=== PATIENT | female | born 1945 | race Two or more races ===

== ENCOUNTER → 2020-03-05 10:45 | Outpatient (BNVA) | payer MEDICARE, MEDICAID, SELFPAY | PROVIDERS: PCP Internal Medicine; Visit Provider Internal Medicine | DX: I26.99 Other pulmonary embolism without acute cor pulmonale (principal); Z51.81 Encounter for therapeutic drug level monitoring; Z79.01 Long term (current) use of anticoagulants | CPT/HCPCS: 85610; 99211 ==

== ENCOUNTER → 2020-03-09 10:58 | Outpatient (BNVA) | payer MEDICARE, MEDICAID, SELFPAY | PROVIDERS: PCP Internal Medicine; Visit Provider Internal Medicine | DX: I26.99 Other pulmonary embolism without acute cor pulmonale (principal); Z51.81 Encounter for therapeutic drug level monitoring; Z79.01 Long term (current) use of anticoagulants | CPT/HCPCS: 85610 ==

== ENCOUNTER 2020-03-11 12:23 | Outpatient (REF) | payer MEDICARE, MEDICAID, SELFPAY ==
--- NOTE | 2020-03-11 13:40 | XR_ITS ---
EXAMINATION: XR FOOT, LEFT XR ANKLE, LEFT XR FOOT, RIGHT XR ANKLE, RIGHT CLINICAL INFORMATION: Rheumatoid arthritis with rheumatoid factor COMPARISON: 10/24/2019 TECHNIQUE: 3 views of each foot. 2 additional views of each ankle. FINDINGS: Left foot: Osteopenia. No fracture or dislocation. Alignment is anatomic. Joint space narrowing throughout the interphalangeal joints. Diffuse soft tissue swelling. Vascular calcifications. No osseous erosion. Left ankle: No fracture or dislocation. The ankle mortise is congruent. Small heel spurs. Mild diffuse soft tissue swelling. No ankle joint effusion. Right foot: Osteopenia. No fracture or dislocation. Alignment is anatomic. Joint space narrowing throughout the interphalangeal joints. Vascular calcifications. Mild diffuse soft tissue swelling. No osseous erosions. Right ankle: No fracture or dislocation. The ankle mortise is congruent. Circumferential soft tissue swelling. Small Achilles heel spur. No ankle joint effusion. IMPRESSION: Diffuse osteopenia. No acute abnormality. No osseous erosion. Degenerative changes throughout the digits with joint space narrowing.
[2020-03-11 14:54] LABS: MANUAL DIFF FLAG NO
[2020-03-11 14:57] LABS: Basophils Percent Auto 0.5 % (0-2); Eosinophils Absolute Auto 0.1 X10*3/uL (0.0-0.4); Eosinophils Percent Auto 1.2 % (0-4); Hematocrit 38.5 % (37-47); Hemoglobin 11.4 g/dl (12.0-16.0); Imm Gran Abs Auto 0.02 X10*3/uL (0.00-0.03); Imm Gran Pct Auto 0.4 % (0.0-0.4); Lymphocytes Absolute Auto 1.6 X10*3/uL (1.2-4.9); Lymphocytes Percent Auto 28.6 % (20-40); Mean Corpuscular HGB Conc 29.6 g/dl (31.0-35.0); Mean Corpuscular Hemoglobin 24.5 pg (27.0-33.0); Mean Corpuscular Volume 82.8 fL (80-98); Mean Platelet Volume 9.5 fL (9.4-12.3); Monocytes Absolute Auto 0.4 X10*3/uL (0.1-1.2); Monocytes Percent Auto 7.7 % (2-11); Neutrophils Absolute Auto 3.5 X10*3/uL (2.0-8.3); Neutrophils Percent Auto 61.6 % (45-73); Platelet Count 504 X10*3/uL (160-400); Red Blood Count 4.65 X10*6/uL (4.20-5.50); White Blood Count 5.6 X10*3/uL (4.8-10.8)
[2020-03-11 15:25] LABS: Alanine Aminotransferase 6 U/L (0-31); Albumin Level 3.7 g/dL (3.5-5.0); Alkaline Phosphatase 80 U/L (39-117); Anion Gap 13 (12-20); Aspartate Amino Transferase 16 U/L (5-31); Bilirubin Total 0.3 mg/dL (0.0-1.0); Blood Urea Nitrogen 7 mg/dL (9-16); Calcium 9.7 mg/dL (8.4-10.2); Carbon Dioxide 31 mmol/L (22-29); Chloride 101 mmol/L (96-108); Estimated Glomerular Filt Rate > 60; Glucose Random 105 mg/dL (60-115); Potassium 4.9 mmol/l (3.3-5.1); Sodium 140 mmol/L (135-145); Total Protein 7.4 g/dL (6.5-8.0)
[2020-03-11 15:48] LABS: Erythrocyte Sedimentation Rate 80 MM/HR (0-20)
== END 2020-03-11 12:24 | disposition home or self-care (01) ==
LOC: HO.XRAY 12:23
PROVIDERS: PCP Internal Medicine; Referring Provider Internal Medicine; Visit Provider Student in an Organized Health Care Education/Training Program
DX: M06.9 Rheumatoid arthritis, unspecified (principal); Z79.899 Other long term (current) drug therapy; M25.572 Pain in left ankle and joints of left foot; M25.571 Pain in right ankle and joints of right foot; M79.672 Pain in left foot; M79.671 Pain in right foot
CPT/HCPCS: 36415; 73610; 73630; 80053; 85025; 85652; 86140; 99214

== ENCOUNTER 2020-03-17 12:52 | Outpatient (REF) | payer MEDICARE, MEDICAID, SELFPAY ==
--- NOTE | 2020-03-17 13:07 | MR_ITS ---
EXAMINATION: MR FOOT WITHOUT CONTRAST, RIGHT MR FOOT WITHOUT CONTRAST, LEFT CLINICAL INFORMATION: Rheumatoid arthritis. Foot pain. Patient documents bilateral foot pain started 8-9 months ago. Severe swelling. COMPARISON: X-ray 03/11/2020. TECHNIQUE: Multiplanar multisequence imaging in a high-field magnet without contrast. FINDINGS: RIGHT FOOT: Bone/Joints: There is extensive severe bone marrow edema in the mid and hindfoot. This includes severe diffuse edema in the cuneiforms, cuboid, navicular. Extensive severe edema in the calcaneus and the talus, including marginating the subtalar joints and the calcaneocuboid joint. Severe edema in the proximal half of the 2nd-5th metatarsals. There is edema in the distal 5th metatarsal head and neck. No focal fracture plane is seen. No definite erosive changes are identified in this large [id number] study. Muscles/Tendons: Evaluation limited, with the tendons grossly appearing intact. There is diffuse edema in the intrinsic muscles of the foot. Ligaments: Lisfranc ligament is grossly intact, evaluation limited in this large [id number] study. Achilles Tendon: Intact. Plantar Fascia: Intact. Sinus Tarsi: Edema present. Subcutaneous Soft Tissues: Extensive dorsal subcutaneous edema. LEFT FOOT: Bone/Joints: Extensive severe marrow edema in the mid and hindfoot. This includes severe diffuse edema in the cuneiforms, cuboid, navicular. Patchy edema in the talar head and neck, in the superior aspect of the calcaneus, and the mid/anterior calcaneus including marginating the calcaneocuboid joint. Mild edema in the proximal second metatarsal. There is [id number]-ikgsia edema in the distal 2nd, 4th metatarsals. Mild edema in the distal 3rd metatarsal. No focal fracture plane is seen. No definite erosive changes are seen. Mild talocrural joint arthritis. Muscles/Tendons: Limited evaluation. Tendons grossly appear intact. Diffuse edema in the intrinsic muscles of the foot. Ligaments: Lisfranc ligament is grossly intact, evaluation limited in this large [id number]-ef-rfth. Achilles Tendon: Intact. Plantar Fascia: Intact. Sinus Tarsi: Edema present. Subcutaneous Soft Tissues: Mild subcutaneous edema. MR/MR foot LT wo con IMPRESSION: 1. In bilateral feet, there is severe bone marrow edema in the mid and hindfoot. There also is edema in the forefoot involving the distal metatarsals, left greater than right as detailed above. Given the clinical history of rheumatoid arthritis, this probably reflects sequela of rheumatoid arthritis. Differential considerations such as sequela of trauma, stress injury, insufficiency injury would be less likely given the clinical history. Infectious etiology would be considered less likely given the clinical history, and the extensive marrow signal abnormality. Clinical correlation is needed to exclude the differential possibilities. 2. Edema in the intrinsic muscles of bilateral feet. Differential considerations include reactive edema, myositis, sequela of denervation.
--- NOTE | 2020-03-17 13:07 | MR_ITS ---
EXAMINATION: MR FOOT WITHOUT CONTRAST, RIGHT MR FOOT WITHOUT CONTRAST, LEFT CLINICAL INFORMATION: Rheumatoid arthritis. Foot pain. Patient documents bilateral foot pain started 8-9 months ago. Severe swelling. COMPARISON: X-ray 03/11/2020. TECHNIQUE: Multiplanar multisequence imaging in a high-field magnet without contrast. FINDINGS: RIGHT FOOT: Bone/Joints: There is extensive severe bone marrow edema in the mid and hindfoot. This includes severe diffuse edema in the cuneiforms, cuboid, navicular. Extensive severe edema in the calcaneus and the talus, including marginating the subtalar joints and the calcaneocuboid joint. Severe edema in the proximal half of the 2nd-5th metatarsals. There is edema in the distal 5th metatarsal head and neck. No focal fracture plane is seen. No definite erosive changes are identified in this large [id number] study. Muscles/Tendons: Evaluation limited, with the tendons grossly appearing intact. There is diffuse edema in the intrinsic muscles of the foot. Ligaments: Lisfranc ligament is grossly intact, evaluation limited in this large xeaxl-mx-chss study. Achilles Tendon: Intact. Plantar Fascia: Intact. Sinus Tarsi: Edema present. Subcutaneous Soft Tissues: Extensive dorsal subcutaneous edema. LEFT FOOT: Bone/Joints: Extensive severe marrow edema in the mid and hindfoot. This includes severe diffuse edema in the cuneiforms, cuboid, navicular. Patchy edema in the talar head and neck, in the superior aspect of the calcaneus, and the mid/anterior calcaneus including marginating the calcaneocuboid joint. Mild edema in the proximal second metatarsal. There is [id number] edema in the distal 2nd, 4th metatarsals. Mild edema in the distal 3rd metatarsal. No focal fracture plane is seen. No definite erosive changes are seen. Mild talocrural joint arthritis. Muscles/Tendons: Limited evaluation. Tendons grossly appear intact. Diffuse edema in the intrinsic muscles of the foot. Ligaments: Lisfranc ligament is grossly intact, evaluation limited in this large imzmo-vo-uavx. Achilles Tendon: Intact. Plantar Fascia: Intact. Sinus Tarsi: Edema present. Subcutaneous Soft Tissues: Mild subcutaneous edema. MR/MR foot RT wo con IMPRESSION: 1. In bilateral feet, there is severe bone marrow edema in the mid and hindfoot. There also is edema in the forefoot involving the distal metatarsals, left greater than right as detailed above. Given the clinical history of rheumatoid arthritis, this probably reflects sequela of rheumatoid arthritis. Differential considerations such as sequela of trauma, stress injury, insufficiency injury would be less likely given the clinical history. Infectious etiology would be considered less likely given the clinical history, and the extensive marrow signal abnormality. Clinical correlation is needed to exclude the differential possibilities. 2. Edema in the intrinsic muscles of bilateral feet. Differential considerations include reactive edema, myositis, sequela of denervation.
== END 2020-03-17 12:53 | disposition home or self-care (01) ==
LOC: HO.MRI 12:52
PROVIDERS: PCP Internal Medicine; Visit Provider Student in an Organized Health Care Education/Training Program
DX: M05.9 Rheumatoid arthritis with rheumatoid factor, unspecified (principal); M79.671 Pain in right foot
CPT/HCPCS: 73718; 85610

== ENCOUNTER → 2020-03-24 14:10 | Outpatient (BNVA) | payer MEDICARE, MEDICAID, SELFPAY | PROVIDERS: PCP Internal Medicine; Visit Provider Internal Medicine | DX: R60.0 Localized edema (principal); R07.89 Other chest pain; I49.3 Ventricular premature depolarization; M06.9 Rheumatoid arthritis, unspecified; Z88.0 Allergy status to penicillin; Z91.041 Radiographic dye allergy status; Z79.01 Long term (current) use of anticoagulants; Z79.899 Other long term (current) drug therapy | CPT/HCPCS: 85610; 99212 ==

== ENCOUNTER → 2020-03-31 13:04 | Outpatient (BNVA) | payer MEDICARE, MEDICAID, SELFPAY | PROVIDERS: PCP Internal Medicine; Referring Provider Internal Medicine; Visit Provider Student in an Organized Health Care Education/Training Program | DX: M06.9 Rheumatoid arthritis, unspecified (principal); Z71.89 Other specified counseling | CPT/HCPCS: 99211 ==

== ENCOUNTER 2020-04-05 12:25 | Outpatient (REF) | payer MEDICARE, MEDICAID, SELFPAY ==
[2020-04-05 13:39] LABS: MANUAL DIFF FLAG NO
[2020-04-05 13:50] LABS: Basophils Percent Auto 0.7 % (0-2); Eosinophils Absolute Auto 0.1 X10*3/uL (0.0-0.4); Eosinophils Percent Auto 3.2 % (0-4); Hematocrit 37.1 % (37-47); Hemoglobin 11.2 g/dl (12.0-16.0); Imm Gran Abs Auto 0.01 X10*3/uL (0.00-0.03); Imm Gran Pct Auto 0.2 % (0.0-0.4); Lymphocytes Absolute Auto 2.2 X10*3/uL (1.2-4.9); Lymphocytes Percent Auto 50.6 % (20-40); Mean Corpuscular HGB Conc 30.2 g/dl (31.0-35.0); Mean Corpuscular Hemoglobin 25.4 pg (27.0-33.0); Mean Corpuscular Volume 84.1 fL (80-98); Mean Platelet Volume 10.3 fL (9.4-12.3); Monocytes Absolute Auto 0.5 X10*3/uL (0.1-1.2); Monocytes Percent Auto 10.7 % (2-11); Neutrophils Absolute Auto 1.5 X10*3/uL (2.0-8.3); Neutrophils Percent Auto 34.6 % (45-73); Platelet Count 395 X10*3/uL (160-400); Red Blood Count 4.41 X10*6/uL (4.20-5.50); Red Cell Distribution Width 17.3 % (11.0-16.0); White Blood Count 4.3 X10*3/uL (4.8-10.8)
[2020-04-05 14:27] LABS: Alanine Aminotransferase 9 U/L (0-31); Albumin Level 3.5 g/dL (3.5-5.0); Alkaline Phosphatase 87 U/L (39-117); Anion Gap 13 (12-20); Aspartate Amino Transferase 16 U/L (5-31); Bilirubin Total 0.2 mg/dL (0.0-1.0); Blood Urea Nitrogen 9 mg/dL (9-16); C Reactive Protein 2.28 mg/dL (< or = 0.50); Calcium 8.9 mg/dL (8.4-10.2); Carbon Dioxide 26 mmol/L (22-29); Chloride 106 mmol/L (96-108); Estimated Glomerular Filt Rate > 60; Glucose Random 76 mg/dL (60-115); Potassium 4.4 mmol/l (3.3-5.1); Sodium 141 mmol/L (135-145); Total Protein 6.6 g/dL (6.5-8.0)
[2020-04-05 14:41] LABS: Erythrocyte Sedimentation Rate 74 MM/HR (0-20)
== END 2020-04-05 12:26 | disposition home or self-care (01) ==
LOC: HO.LAB 12:25
PROVIDERS: PCP Internal Medicine; Visit Provider Student in an Organized Health Care Education/Training Program
DX: M06.9 Rheumatoid arthritis, unspecified (principal); Z79.52 Long term (current) use of systemic steroids
CPT/HCPCS: 36415; 80053; 85025; 85652; 86140

== ENCOUNTER → 2020-04-07 13:03 | Outpatient (BNVA) | payer MEDICARE, MEDICAID, SELFPAY | PROVIDERS: PCP Internal Medicine; Visit Provider Internal Medicine | DX: I26.99 Other pulmonary embolism without acute cor pulmonale (principal); Z51.81 Encounter for therapeutic drug level monitoring; Z79.01 Long term (current) use of anticoagulants | CPT/HCPCS: 85610; 99211 ==

== ENCOUNTER → 2020-04-15 14:33 | Outpatient (BNVA) | payer MEDICARE, MEDICAID, SELFPAY | PROVIDERS: PCP Internal Medicine; Referring Provider Internal Medicine; Visit Provider Internal Medicine | DX: I26.99 Other pulmonary embolism without acute cor pulmonale (principal); Z51.81 Encounter for therapeutic drug level monitoring; Z79.01 Long term (current) use of anticoagulants | CPT/HCPCS: 85610; 99211 ==

== ENCOUNTER → 2020-04-26 14:34 | Outpatient (BNVA) | payer MEDICARE, MEDICAID, SELFPAY | PROVIDERS: PCP Internal Medicine; Referring Provider Internal Medicine; Visit Provider Internal Medicine | DX: I26.99 Other pulmonary embolism without acute cor pulmonale (principal); Z51.81 Encounter for therapeutic drug level monitoring; Z79.01 Long term (current) use of anticoagulants | CPT/HCPCS: 85610; 99211 ==

== ENCOUNTER → 2020-05-06 10:39 | Outpatient (BNVA) | payer MEDICARE, MEDICAID, SELFPAY | PROVIDERS: PCP Internal Medicine; Visit Provider Student in an Organized Health Care Education/Training Program | DX: M05.9 Rheumatoid arthritis with rheumatoid factor, unspecified (principal); Z79.899 Other long term (current) drug therapy; Z79.01 Long term (current) use of anticoagulants | CPT/HCPCS: Q3014 ==

== ENCOUNTER → 2020-05-10 10:28 | Outpatient (BNVA) | payer MEDICARE, MEDICAID, SELFPAY | PROVIDERS: PCP Internal Medicine; Visit Provider Internal Medicine | DX: I26.99 Other pulmonary embolism without acute cor pulmonale (principal); Z51.81 Encounter for therapeutic drug level monitoring; Z79.01 Long term (current) use of anticoagulants | CPT/HCPCS: 85610; 99211 ==

== ENCOUNTER → 2020-05-14 10:12 | Outpatient (BNVA) | payer MEDICARE, MEDICAID, SELFPAY | PROVIDERS: PCP Internal Medicine; Visit Provider Internal Medicine | DX: I26.99 Other pulmonary embolism without acute cor pulmonale (principal); Z51.81 Encounter for therapeutic drug level monitoring; Z79.01 Long term (current) use of anticoagulants | CPT/HCPCS: 85610; 99211 ==

== ENCOUNTER → 2020-05-17 10:44 | Outpatient (BNVA) | payer MEDICARE, MEDICAID, SELFPAY | PROVIDERS: PCP Internal Medicine; Visit Provider Internal Medicine | DX: I26.99 Other pulmonary embolism without acute cor pulmonale (principal); Z51.81 Encounter for therapeutic drug level monitoring; Z79.01 Long term (current) use of anticoagulants | CPT/HCPCS: 85610; 99211 ==

== ENCOUNTER → 2020-06-03 13:02 | Outpatient (BNVA) | payer MEDICARE, MEDICAID, SELFPAY | PROVIDERS: PCP Internal Medicine; Visit Provider Internal Medicine | DX: I26.99 Other pulmonary embolism without acute cor pulmonale (principal); Z79.01 Long term (current) use of anticoagulants; Z51.81 Encounter for therapeutic drug level monitoring | CPT/HCPCS: 85610; 99211 ==

== ENCOUNTER → 2020-06-10 13:30 | Outpatient (BNVA) | payer MEDICARE, MEDICAID, SELFPAY | PROVIDERS: PCP Internal Medicine; Visit Provider Internal Medicine | DX: I26.99 Other pulmonary embolism without acute cor pulmonale (principal); Z51.81 Encounter for therapeutic drug level monitoring; Z79.01 Long term (current) use of anticoagulants | CPT/HCPCS: 85610; 99211 ==

== ENCOUNTER → 2020-06-18 13:35 | Outpatient (BNVA) | payer MEDICARE, MEDICAID, SELFPAY | PROVIDERS: PCP Internal Medicine; Visit Provider Internal Medicine | DX: I26.99 Other pulmonary embolism without acute cor pulmonale (principal); Z51.81 Encounter for therapeutic drug level monitoring; Z79.01 Long term (current) use of anticoagulants | CPT/HCPCS: 85610; 99211 ==

== ENCOUNTER → 2020-06-29 09:13 | Outpatient (BNVA) | payer MEDICARE, MEDICAID, SELFPAY | PROVIDERS: Visit Provider Student in an Organized Health Care Education/Training Program | DX: M05.9 Rheumatoid arthritis with rheumatoid factor, unspecified (principal); R07.9 Chest pain, unspecified; Z79.899 Other long term (current) drug therapy | CPT/HCPCS: 99212 ==

== ENCOUNTER → 2020-09-01 10:37 | Outpatient (BNVA) | payer MEDICARE, MEDICAID, SELFPAY | PROVIDERS: PCP Internal Medicine; Visit Provider Internal Medicine | DX: I26.99 Other pulmonary embolism without acute cor pulmonale (principal); Z51.81 Encounter for therapeutic drug level monitoring; Z79.01 Long term (current) use of anticoagulants | CPT/HCPCS: Q3014 ==

== ENCOUNTER → 2020-11-23 15:34 | Outpatient (BNVA) | payer MEDICARE, MEDICAID, SELFPAY | PROVIDERS: PCP Internal Medicine; Visit Provider Student in an Organized Health Care Education/Training Program | DX: M05.9 Rheumatoid arthritis with rheumatoid factor, unspecified (principal); Z79.899 Other long term (current) drug therapy | CPT/HCPCS: 99212 ==

== ENCOUNTER → 2020-11-25 13:27 | Outpatient (BNVA) | payer MEDICARE, MEDICAID, SELFPAY | PROVIDERS: PCP Internal Medicine; Visit Provider Internal Medicine | DX: I26.99 Other pulmonary embolism without acute cor pulmonale (principal); Z51.81 Encounter for therapeutic drug level monitoring; Z79.01 Long term (current) use of anticoagulants | CPT/HCPCS: 85610; 99211 ==

== ENCOUNTER → 2020-12-02 10:36 | Outpatient (BNVA) | payer MEDICARE, MEDICAID, SELFPAY | PROVIDERS: PCP Internal Medicine; Visit Provider Internal Medicine | DX: I26.99 Other pulmonary embolism without acute cor pulmonale (principal); Z51.81 Encounter for therapeutic drug level monitoring; Z79.01 Long term (current) use of anticoagulants | CPT/HCPCS: 85610; 99211 ==

== ENCOUNTER → 2020-12-06 13:43 | Outpatient (BNV) | payer MEDICARE, OTHER, MEDICAID, SELFPAY | PROVIDERS: PCP Internal Medicine; Visit Provider Internal Medicine Medical Oncology | DX: I26.99 Other pulmonary embolism without acute cor pulmonale (principal) | CPT/HCPCS: 99213 ==

== ENCOUNTER → 2020-12-23 13:29 | Outpatient (BNVA) | payer MEDICARE, MEDICAID, SELFPAY | PROVIDERS: PCP Internal Medicine; Visit Provider Internal Medicine | DX: I26.99 Other pulmonary embolism without acute cor pulmonale (principal); Z79.01 Long term (current) use of anticoagulants; Z51.81 Encounter for therapeutic drug level monitoring | CPT/HCPCS: 85610; 99211 ==

== ENCOUNTER → 2021-01-06 14:49 | Outpatient (BNVA) | payer MEDICARE, MEDICAID, SELFPAY | PROVIDERS: PCP Internal Medicine; Visit Provider Internal Medicine | DX: I26.99 Other pulmonary embolism without acute cor pulmonale (principal); Z51.81 Encounter for therapeutic drug level monitoring; Z79.01 Long term (current) use of anticoagulants | CPT/HCPCS: 85610; 99211 ==

== ENCOUNTER → 2021-01-21 13:35 | Outpatient (BNVA) | payer MEDICARE, MEDICAID, SELFPAY | PROVIDERS: PCP Internal Medicine; Visit Provider Internal Medicine | DX: I26.99 Other pulmonary embolism without acute cor pulmonale (principal); Z51.81 Encounter for therapeutic drug level monitoring; Z79.01 Long term (current) use of anticoagulants | CPT/HCPCS: 85610; 99211 ==

== ENCOUNTER → 2021-02-10 13:29 | Outpatient (BNVA) | payer MEDICARE, MEDICAID, SELFPAY | PROVIDERS: PCP Internal Medicine; Visit Provider Internal Medicine | DX: I26.99 Other pulmonary embolism without acute cor pulmonale (principal); Z51.81 Encounter for therapeutic drug level monitoring; Z79.01 Long term (current) use of anticoagulants | CPT/HCPCS: G0248 ==

== ENCOUNTER 2021-02-15 14:52 | Outpatient (REF) | payer MEDICARE, MEDICAID, SELFPAY ==
[2021-02-15 15:40] LABS: MANUAL DIFF FLAG NO
[2021-02-15 15:46] LABS: Basophils Percent Auto 0.7 % (0-2); Eosinophils Absolute Auto 0.2 X10*3/uL (0.0-0.4); Eosinophils Percent Auto 4.5 % (0-4); Hematocrit 41.5 % (37-47); Hemoglobin 12.7 g/dl (12.0-16.0); Imm Gran Abs Auto 0.01 X10*3/uL (0.00-0.03); Imm Gran Pct Auto 0.2 % (0.0-0.4); Lymphocytes Absolute Auto 2.1 X10*3/uL (1.2-4.9); Lymphocytes Percent Auto 48.5 % (20-40); Mean Corpuscular HGB Conc 30.6 g/dl (31.0-35.0); Mean Corpuscular Hemoglobin 27.3 pg (27.0-33.0); Mean Corpuscular Volume 89.2 fL (80-98); Mean Platelet Volume 9.9 fL (9.4-12.3); Monocytes Absolute Auto 0.5 X10*3/uL (0.1-1.2); Monocytes Percent Auto 10.4 % (2-11); Neutrophils Absolute Auto 1.6 X10*3/uL (2.0-8.3); Neutrophils Percent Auto 35.7 % (45-73); Platelet Count 209 X10*3/uL (160-400); Red Blood Count 4.65 X10*6/uL (4.20-5.50); Red Cell Distribution Width 15.7 % (11.0-16.0); White Blood Count 4.4 X10*3/uL (4.8-10.8)
[2021-02-15 16:11] LABS: Alanine Aminotransferase 14 U/L (0-31); Albumin Level 3.7 g/dL (3.5-5.0); Alkaline Phosphatase 70 U/L (39-117); Anion Gap 12 (12-20); Aspartate Amino Transferase 23 U/L (5-31); Bilirubin Total 0.4 mg/dL (0.0-1.0); Blood Urea Nitrogen 14 mg/dL (9-16); C Reactive Protein 0.21 mg/dL (< or = 0.50); Calcium 9.7 mg/dL (8.4-10.2); Carbon Dioxide 28 mmol/L (22-29); Chloride 108 mmol/L (96-108); Cholesterol 240 mg/dL; Estimated Glomerular Filt Rate > 60; Glucose Random 85 mg/dL (60-115); HDL Cholesterol 80 mg/dL; LDL Cholesterol Calculated 144 mg/dl; Potassium 4.8 mmol/L (3.3-5.1); Sodium 143 mmol/L (135-145); Total Protein 6.2 g/dL (6.5-8.0); Triglycerides 80 mg/dL
[2021-02-15 16:35] LABS: Reflex LDLD? No
[2021-02-15 16:45] LABS: Erythrocyte Sedimentation Rate 5 MM/HR (0-20)
== END 2021-02-15 14:53 | disposition home or self-care (01) ==
LOC: HO.LAB 14:52
PROVIDERS: PCP Internal Medicine; Visit Provider Student in an Organized Health Care Education/Training Program
DX: M06.9 Rheumatoid arthritis, unspecified (principal)
CPT/HCPCS: 36415; 80053; 80061; 85025; 85652; 86140

== ENCOUNTER → 2021-02-17 14:55 | Outpatient (BNVA) | payer MEDICARE, MEDICAID, SELFPAY | PROVIDERS: PCP Internal Medicine; Visit Provider Internal Medicine ==

== ENCOUNTER → 2021-02-23 13:52 | Outpatient (BNVA) | payer MEDICARE, MEDICAID, SELFPAY | PROVIDERS: Visit Provider Nurse Practitioner Family | DX: M05.9 Rheumatoid arthritis with rheumatoid factor, unspecified (principal); Z79.899 Other long term (current) drug therapy | CPT/HCPCS: 99212 ==

== ENCOUNTER → 2021-02-24 12:58 | Outpatient (BNVA) | payer MEDICARE, MEDICAID, SELFPAY | PROVIDERS: PCP Internal Medicine; Visit Provider Internal Medicine ==

== ENCOUNTER → 2021-03-03 16:07 | Outpatient (BNVA) | payer MEDICARE, MEDICAID, SELFPAY | PROVIDERS: PCP Internal Medicine; Visit Provider Internal Medicine | DX: I26.99 Other pulmonary embolism without acute cor pulmonale (principal) | CPT/HCPCS: Q3014 ==

== ENCOUNTER → 2021-03-10 13:51 | Outpatient (BNVA) | payer MEDICARE, MEDICAID, SELFPAY | PROVIDERS: PCP Internal Medicine; Visit Provider Internal Medicine ==

== ENCOUNTER → 2021-03-17 13:06 | Outpatient (BNVA) | payer MEDICARE, MEDICAID, SELFPAY | PROVIDERS: PCP Internal Medicine; Visit Provider Internal Medicine ==

== ENCOUNTER → 2021-03-24 15:10 | Outpatient (BNVA) | payer MEDICARE, MEDICAID, SELFPAY | PROVIDERS: PCP Internal Medicine; Visit Provider Internal Medicine ==

== ENCOUNTER → 2021-03-31 14:59 | Outpatient (BNVA) | payer MEDICARE, MEDICAID, SELFPAY | PROVIDERS: PCP Internal Medicine; Visit Provider Internal Medicine | DX: I26.99 Other pulmonary embolism without acute cor pulmonale (principal) | CPT/HCPCS: Q3014 ==

== ENCOUNTER → 2021-04-07 15:51 | Outpatient (BNVA) | payer MEDICARE, MEDICAID, SELFPAY | PROVIDERS: PCP Internal Medicine; Visit Provider Internal Medicine | DX: I26.99 Other pulmonary embolism without acute cor pulmonale (principal); Z79.01 Long term (current) use of anticoagulants; Z51.81 Encounter for therapeutic drug level monitoring | CPT/HCPCS: 99211 ==

== ENCOUNTER → 2021-04-14 16:37 | Outpatient (BNVA) | payer MEDICARE, MEDICAID, SELFPAY | PROVIDERS: PCP Internal Medicine; Visit Provider Internal Medicine | DX: I26.99 Other pulmonary embolism without acute cor pulmonale (principal) | CPT/HCPCS: Q3014 ==

== ENCOUNTER → 2021-04-28 15:11 | Outpatient (BNVA) | payer MEDICARE, MEDICAID, SELFPAY | PROVIDERS: PCP Internal Medicine; Visit Provider Internal Medicine ==

== ENCOUNTER 2021-04-30 14:20 | Emergency (ER) | payer MEDICARE, MEDICAID, SELFPAY ==
--- NOTE | ~2021-04-30 | CT_ITS ---
EXAMINATION: CT ABDOMEN AND PELVIS WITHOUT CONTRAST CLINICAL INFORMATION: Right lower quadrant pain. Diarrhea COMPARISON: Portions of a previous study performed with IV contrast 07/15/19 TECHNIQUE: Multidetector volumetric imaging was performed from the superior aspect of the liver through the pubic symphysis. Sagittal and coronal reformatted images were obtained on the technologist's workstation. This CT examination was performed using dose optimization techniques as appropriate, variously including the following: *Automated exposure control *Adjustment of mA and/or kV according to patient size (this includes techniques or standardized protocols for targeted exams where dose is matched to indication/reason for exam; i.e. extremities or head) *Use of iterative reconstruction technique DLP: 660 mGy-cm FINDINGS: LUNG BASES: There is a small hiatal hernia. LIVER, GALLBLADDER, AND BILIARY TREE: No suspicious abnormality in the liver. There are surgical clips in the expected region of the gallbladder. Caliber of the common duct is consistent with previous cholecystectomy. PANCREAS: Limited assessment. No definite abnormality. SPLEEN: No suspicious abnormality. ADRENAL GLANDS: No suspicious abnormality. KIDNEYS AND URETERS: There is no dilation of the urinary collecting system on either side. No suspicious renal mass or definite opaque urinary calculus. BLADDER: The bladder is nearly empty. GASTROINTESTINAL TRACT: There is fluid within the colon. This suggests absorption or dysfunction. There is metallic suture near the expected region of the cecum. No abnormal appendix demonstrated. There is extensive suture in the region of the stomach. I suspect a bariatric there is an additional anastomosis in the left midabdomen. No specific evidence of an internal hernia. ABDOMINAL WALL: There are numerous varices in the pelvic soft tissues anteriorly. Evidence of previous surgery. No significant hernia demonstrated LYMPH NODES: There are no measurably enlarged abdominal or pelvic lymph nodes. There is no free intraperitoneal fluid. VASCULAR: There is atherosclerotic calcification but no abdominal aortic aneurysm. There is a vascular filter in the lower aspect of the IVC. Some of the tines extend outside the vessel. There is an additional filter in the region of the left common iliac vein. Some of the tines extend outside the vessel wall. PELVIC VISCERA: Suspect previous hysterectomy. No suspicious adnexal mass. OSSEOUS STRUCTURES: Osteopenia. Superior endplate concavity at T11 and T12. CT/CT abdomen pelvis wo con IMPRESSION: Previous bariatric procedure. Fluid throughout the colon which is not normal. No evidence of a high-grade small bowel obstruction. There are vascular filter is present. The tines extend outside the vessel lumen.
[2021-04-30 16:26] VITALS: BP 137/69; PULSE 96; RESP 18; TEMP 37; O2SAT 97; BMI 30.2
[2021-04-30 19:04] LABS: MANUAL DIFF FLAG NO
[2021-04-30 19:06] LABS: Basophils Percent Auto 0.2 % (0-2); Eosinophils Absolute Auto 0.1 X10*3/uL (0.0-0.4); Eosinophils Percent Auto 1.6 % (0-4); Hematocrit 45.9 % (37.0-47.0); Hemoglobin 14.1 g/dl (12.0-16.0); Imm Gran Abs Auto 0.01 X10*3/uL (0.00-0.03); Imm Gran Pct Auto 0.2 % (0.0-0.4); Lymphocytes Absolute Auto 0.3 X10*3/uL (1.2-4.9); Lymphocytes Percent Auto 5.2 % (20-40); Mean Corpuscular HGB Conc 30.7 g/dl (31.0-35.0); Mean Corpuscular Hemoglobin 27.1 pg (27.0-33.0); Mean Corpuscular Volume 88.1 fL (80.0-98.0); Mean Platelet Volume 10.4 fL (9.4-12.3); Monocytes Absolute Auto 0.3 X10*3/uL (0.1-1.2); Monocytes Percent Auto 5.1 % (2-11); Neutrophils Percent Auto 87.7 % (45-73); Platelet Count 229 X10*3/uL (160-400); Red Blood Count 5.21 X10*6/uL (4.20-5.50); Red Cell Distribution Width 14.2 % (11.0-16.0); White Blood Count 5.7 X10*3/uL (4.8-10.8)
[2021-04-30 19:24] LABS: INTERNATIONAL NORM RATIO 2.9 (0.9-1.1); Prothrombin Time 33.2 SEC (9.9-13.0)
[2021-04-30 19:26] LABS: Alanine Aminotransferase 35 U/L (0-31); Albumin Level 4.1 g/dL (3.5-5.0); Alkaline Phosphatase 92 U/L (39-117); Anion Gap 14 (12-20); Aspartate Amino Transferase 62 U/L (5-31); Bilirubin Total 0.6 mg/dL (0.0-1.0); Blood Urea Nitrogen 15 mg/dL (9-16); Calcium 9.5 mg/dL (8.4-10.2); Carbon Dioxide 21 mmol/L (22-29); Chloride 109 mmol/L (96-108); Creatinine Clr Calc Pharmacy 56.8; Estimated Glomerular Filt Rate > 60; Glucose Random 112 mg/dL (60-115); Potassium 4.3 mmol/L (3.3-5.1); Sodium 140 mmol/L (135-145); Total Protein 7.2 g/dL (6.5-8.0)
[2021-04-30 19:33] VITALS: BP 137/89; PULSE 89; RESP 16; TEMP 36.6; O2SAT 99
[2021-04-30 20:04] LABS: Appearance Urine CLEAR; Color Urine YELLOW; Glucose Urine UA NEG (NEG); Leukocyte Esterase Urine NEG (NEG); Nitrite Urine NEG (NEG); PH 5.5 (5.0-8.0); Specific Gravity - Urine >= 1.030 (1.005-1.025); Urine Blood NEG (NEG); Urine Ketones 5 MG/DL (NEG); Urine Protein TRACE MG/DL (NEG-TRACE)
--- NOTE | 2021-04-30 20:36 | ED.ABDPAIN ---
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 The patient states that she has been sick for approximately 1 week. She states that she developed Sudden onset right sided abdominal pain that radiated to her back 7 days prior. She states the pain is been a constant, dull pain which is 10/10 at its worst. The patient has had associated nausea and vomiting. She states that she has also had 5-10 episodes of loose diarrheal stool per day. She states this diarrhea is improved but she has had 2-3 mucousy stools per day. She denies any blood in the stools. She denied fever but she did have chills. According to the son she has had similar pain in the past secondary to diverticulitis. Related Data Home Medications Medication Instructions Recorded Confirmed acetaminophen 650 mg 1,300 mg PO Q8H 03/11/20 04/14/21 tablet,extended release (Tylenol 8 Hour) albuterol sulfate 90 mcg/actuation 2 puff INHALATION Q6H PRN 03/11/20 04/14/21 aerosol inhaler (ProAir HFA) enalapril maleate 20 mg tablet 20 mg PO DAILY 03/11/20 04/14/21 lactulose 10 gram/15 mL oral 15 ml PO DAILY 03/11/20 04/14/21 solution metoprolol succinate 25 mg 25 mg PO DAILY 03/11/20 04/14/21 tablet,extended release 24 hr temazepam 30 mg capsule 30 mg PO BEDTIME PRN 03/11/20 04/14/21 furosemide 20 mg tablet (Lasix) 40 mg PO DAILY PRN tab 03/24/20 04/14/21 pantoprazole 40 mg tablet,delayed 40 mg PO DAILY 09/01/20 04/14/21 release duloxetine 60 mg capsule,delayed 60 mg PO DAILY 04/14/21 04/14/21 release lorazepam 0.5 mg tablet 0.5 mg PO DAILY PRN 04/14/21 04/14/21 melatonin 10 mg capsule 10 mg PO BEDTIME 04/14/21 04/14/21 metoprolol succinate 50 mg 50 mg PO DAILY 04/14/21 04/14/21 tablet,extended release 24 hr Previous Rx's Medication Instructions Recorded warfarin 3 mg tablet 3 mg PO DAILY #90 tab 03/05/20 clotrimazole 1 % topical cream 3 appl TOPICAL Q OTHER DAY PRN #45 12/06/20 g methotrexate sodium 2.5 mg tablet See Rx Instructions PO QWEEK #72 01/11/21 tab prednisone 2.5 mg tablet 2.5 mg PO DAILY #30 tab 02/23/21 sarilumab 200 mg/1.14 mL 200 mg (1.14 mL) SUBCUT Q2W #2.28 03/01/21 subcutaneous pen injector ([employer]) ml morphine 15 mg immediate release 15 mg PO Q4-6H PRN #10 tab 04/30/21 tablet Allergies Allergy/AdvReac Type Severity Reaction Status Date / Time Iodinated Contrast Media Allergy Intermediate SWELLING, Verified 04/30/21 16:26 [CONTRAST, IV] ITCHINESS, RASH Penicillins [PENICILLINS] Allergy Intermediate ITCHINESS, Verified 04/30/21 16:26 RASH, SWELLING Sulfa (Sulfonamide Allergy Unknown Verified 04/30/21 16:26 Antibiotics) Review of Systems Review of Systems Yes all other systems are reviewed and are negative Physical Exam Vital Signs: Vital Signs: Last Vital Signs Temp 98.4 F 04/30/21 21:46 Pulse 91 04/30/21 21:46 Resp 16 04/30/21 21:46 BP 138/66 04/30/21 21:46 Pulse Ox 95 04/30/21 21:46 BMI result Body Mass Index 30.2 Const: General: cooperative and no acute distress Orientation/consciousness: oriented to person and oriented to place Limitations: no limitations HENMT: Head: Yes normal to inspection, Yes normocephalic and Yes atraumatic Ears: external ears normal General nose exam: Normal external nose present Face and sinus: Yes normal facial exam Mouth: Normal oral and palatal mucosa present Throat: Yes posterior oropharynx normal Eyes: General: appearance normal, both eyes and all related structures Pupils: Equal, round and reactive pupils present Neck: Neck: Yes normal visual inspection, Yes no lymphadenopathy, Yes trachea midline and Yes supple Chest: Chest palpation & inspection: normal inspection of the chest and normal palpation of entire chest wall Resp: Effort & Inspection: normal respiratory effort and able to speak in complete sentences Auscultation: clear to auscultation bilaterally Cardio: Rate: regular rate Rhythm: regular rhythm Heart sounds: S1 normal heart sound present, S2 normal heart sound present and no murmurs GI: Inspection: Yes normal to inspection Palpation (GI): Soft to palpation, Tenderness to palpation present (GI) ( diffuse abdominal tenderness with increased tenderness on the right) and no guarding Auscultation: normal bowel sounds : General: Yes no CVA tenderness Back/Spine/Pelvis: Back: no CVA tenderness Skin: General skin exam: no rashes or lesions noted Neuro: General: oriented to person and oriented to place Cranial nerves: Yes CN's II-XII intact bilaterally and Yes Equal, round and reactive pupils present Cognition (Neuro): normal cognition Motor exam (neuro): 5/5 motor strength present throughout Extrem: General: Yes normal to inspection Psych: Appearance: grossly normal Speech and movement: Normal speech and movement present Affect: normal affect Attitude: cooperative Thought process: Normal thought process present Thought content: Normal thought content present Course Course Course Narrative: 76-year-old female who presents emergency department for evaluation of abdominal pain, diarrhea, nausea, vomiting, chills x1 week. The patient has had similar pain in the past with diverticulitis. Patient has had gastric bypass surgery in the past. Initial vital signs were unremarkable. physical examination revealed diffuse abdominal tenderness. I ordered a laboratory evaluation and CT scan of the abdomen pelvis. Patient was ordered to get normal saline IV and morphine 4 mg IV for pain. She is also treated with Zofran 4 mg IV. 2247: Laboratory evaluation was unremarkable. CT scan of the abdomen pelvis without IV contrast did not reveal a clear etiology for the patient's pain. The patient does have an unusual amount of fluid in her colon but there was no inflammatory changes or colonic wall thickening noted. The patient did get improvement with the above treatment. At this time, I believe the patient has a viral illness causing her pain I did discuss this with her and her son. Patient was advised to take Tylenol and ibuprofen for pain and for pain not relieved by these medications she was prescribed morphine 4 mg every 6 hours as needed. Patient was discharged with verbal and printed instructions. MDM - Abdominal Pain Lab Data Result diagrams: 04/30/21 18:56 04/30/21 18:56 Labs: Lab Results 04/30/21 04/30/21 04/30/21 Range/Units 18:56 18:56 18:56 WBC 5.7 (4.8-10.8) X10*3/uL RBC 5.21 (4.20-5.50) X10*6/uL Hgb 14.1 (12.0-16.0) g/dl Hct 45.9 (37.0-47.0) % MCV 88.1 (80.0-98.0) fL MCH 27.1 (27.0-33.0) pg MCHC 30.7 L (31.0-35.0) g/dl RDW 14.2 (11.0-16.0) % Plt Count 229 (160-400) X10*3/uL MPV 10.4 (9.4-12.3) fL Immature Gran % (Auto) 0.2 (0.0-0.4) % Neut % (Auto) 87.7 H (45-73) % Lymph % (Auto) 5.2 L (20-40) % [place] % (Auto) 5.1 (2-11) % Eos % (Auto) 1.6 (0-4) % Baso % (Auto) 0.2 (0-2) % Lymph # (Auto) 0.3 L (1.2-4.9) X10*3/uL [place] # (Auto) 0.3 (0.1-1.2) X10*3/uL Eos # (Auto) 0.1 (0.0-0.4) X10*3/uL Baso # (Auto) 0.0 (0.0-0.2) X10*3/uL Abs Immat Gran (auto) 0.01 (0.00-0.03) X10*3/uL Absolute Neuts (auto) 5.0 (2.0-8.3) x10*3/uL Absolute Nucleated RBC 0.000 (0.0-0.012) X10*3/uL Nucleated RBC % (auto) 0.0 (0.0-0.2) /100WBC PT 33.2 H (9.9-13.0) SEC INR 2.9 H (0.9-1.1) Sodium 140 (135-145) mmol/L Potassium 4.3 (3.3-5.1) mmol/L Chloride 109 H (96-108) mmol/L Carbon Dioxide 21 L (22-29) mmol/L Anion Gap 14 (12-20) BUN 15 (9-16) mg/dL Creatinine 0.83 (0.5-1.4) mg/dL Estim Creat Clear Calc 56.8 Estimated GFR > 60 Random Glucose 112 (60-115) mg/dL Calcium 9.5 (8.4-10.2) mg/dL Total Bilirubin 0.6 (0.0-1.0) mg/dL AST 62 H (5-31) U/L ALT 35 H (0-31) U/L Alkaline Phosphatase 92 D (39-117) U/L Total Protein 7.2 (6.5-8.0) g/dL Albumin 4.1 (3.5-5.0) g/dL Lipase 27 (8-78) U/L Urine Color Urine Appearance Urine pH (5.0-8.0) Ur Specific [place] (1.005-1.025) Urine Protein (NEG-TRACE) MG/DL Urine Glucose (UA) (NEG) MG/DL Urine Ketones (NEG) MG/DL Urine Blood (NEG) Urine Nitrite (NEG) Ur Leukocyte Esterase (NEG) 04/30/21 Range/Units 19:57 WBC (4.8-10.8) X10*3/uL RBC (4.20-5.50) X10*6/uL Hgb (12.0-16.0) g/dl Hct (37.0-47.0) % MCV (80.0-98.0) fL MCH (27.0-33.0) pg MCHC (31.0-35.0) g/dl RDW (11.0-16.0) % Plt Count (160-400) X10*3/uL MPV (9.4-12.3) fL Immature Gran % (Auto) (0.0-0.4) % Neut % (Auto) (45-73) % Lymph % (Auto) (20-40) % [place] % (Auto) (2-11) % Eos % (Auto) (0-4) % Baso % (Auto) (0-2) % Lymph # (Auto) (1.2-4.9) X10*3/uL [place] # (Auto) (0.1-1.2) X10*3/uL Eos # (Auto) (0.0-0.4) X10*3/uL Baso # (Auto) (0.0-0.2) X10*3/uL Abs Immat Gran (auto) (0.00-0.03) X10*3/uL Absolute Neuts (auto) (2.0-8.3) x10*3/uL Absolute Nucleated RBC (0.0-0.012) X10*3/uL Nucleated RBC % (auto) (0.0-0.2) /100WBC PT (9.9-13.0) SEC INR (0.9-1.1) Sodium (135-145) mmol/L Potassium (3.3-5.1) mmol/L Chloride (96-108) mmol/L Carbon Dioxide (22-29) mmol/L Anion Gap (12-20) BUN (9-16) mg/dL Creatinine (0.5-1.4) mg/dL Estim Creat Clear Calc Estimated GFR Random Glucose (60-115) mg/dL Calcium (8.4-10.2) mg/dL Total Bilirubin (0.0-1.0) mg/dL AST (5-31) U/L ALT (0-31) U/L Alkaline Phosphatase (39-117) U/L Total Protein (6.5-8.0) g/dL Albumin (3.5-5.0) g/dL Lipase (8-78) U/L Urine Color YELLOW Urine Appearance CLEAR Urine pH 5.5 (5.0-8.0) Ur Specific [place] >= 1.030 H (1.005-1.025) Urine Protein TRACE (NEG-TRACE) MG/DL Urine Glucose (UA) NEG (NEG) MG/DL Urine Ketones 5 (NEG) MG/DL Urine Blood NEG (NEG) Urine Nitrite NEG (NEG) Ur Leukocyte Esterase NEG (NEG) Discharge Plan Discharge Clinical Impression: Abdominal actinomycosis Diarrhea Qualifiers: Diarrhea type: unspecified type Qualified Code(s): R19.7 - Diarrhea, unspecified Patient Disposition: Home, Self-Care Instructions: Acute Diarrhea (ED), Abdominal Pain (ED) Additional Instructions: Your blood work was unremarkable. The CT scan of your abdomen pelvis did not reveal a clear cause for your pain. You do have a lot of fluid in your colon but this is nonspecific. There is no inflammation or thickening of your colon wall. At this time, I suspect that your pain is caused by a viral infection but also caused her diarrhea. Take ibuprofen 200 mg pills, 3 pills every 6 hours as needed for pain. Take Tylenol (acetaminophen) 500 mg pills, 2 pills every 6 hours as needed for pain. For pain not relieved by ibuprofen or Tylenol take morphine 15 mg pills, 1 pill every 4 hours as needed for pain. Do not drive or work while taking this medication since they can cause sleepiness. Morphine is a narcotic medication that can be addicting. If you are concerned about addiction you can ask the pharmacist for less pills or do not get this prescription filled. Follow-up with your doctor in 2 days. Please return to the emergency department if your symptoms get worse or if you develop any symptoms that are concerning to you. Prescriptions: New morphine 15 mg tablet 15 mg PO Q4-6H PRN (Reason: pain) Qty: 10 RF: 0 No Action methotrexate sodium 2.5 mg tablet See Rx Instructions PO QWEEK Qty: 72 RF: 0 [place] 200 mg/1.14 mL pen injector 200 mg subcut Q2W Qty: 2.28 RF: 3 clotrimazole 1 % cream 3 appl topical Q OTHER DAY PRN (Reason: Rash) Qty: 45 RF: 4 furosemide [Lasix] 20 mg tablet 40 mg PO DAILY PRN (Reason: Edema) RF: 0 metoprolol succinate 25 mg tablet extended release 24 hr 25 mg PO DAILY RF: 0 albuterol sulfate [ProAir HFA] 90 mcg/actuation HFA aerosol inhaler 2 puff inhalation Q6H PRN (Reason: Asthma) RF: 0 enalapril maleate 20 mg tablet 20 mg PO DAILY RF: 0 temazepam 30 mg capsule 30 mg PO BEDTIME PRN (Reason: Insomnia) RF: 0 lactulose 10 gram/15 mL solution 15 ml PO DAILY RF: 0 acetaminophen [Tylenol 8 Hour] 650 mg tablet extended release 1,300 mg PO Q8H RF: 0 pantoprazole 40 mg tablet,delayed release (DR/EC) 40 mg PO DAILY RF: 0 prednisone 2.5 mg tablet 2.5 mg PO DAILY Qty: 30 RF: 2 warfarin 3 mg tablet 3 mg PO DAILY Qty: 90 RF: 0 metoprolol succinate 50 mg tablet extended release 24 hr 50 mg PO DAILY RF: 0 melatonin 10 mg capsule 10 mg PO BEDTIME RF: 0 duloxetine 60 mg capsule,delayed release(DR/EC) 60 mg PO DAILY RF: 0 lorazepam 0.5 mg tablet 0.5 mg PO DAILY PRNRF: 0 Interventions: ED Discharge Assessment Last Done: 04/30/21 23:38 Discharge Date/Time: 04/30/21 23:41 [facility] Past Medical History [facility] Narrative: past medical history: Chest pain, pulmonary embolism, PVCs, diarrhea, rheumatoid arthritis, leg edema. Surgical history: Reviewed below. Social history: The patient denies tobacco, alcohol and drug use. Medical History Leg edema Rheumatoid arthritis Surgical History History of appendectomy History of bariatric surgery History of cholecystectomy History of colonoscopy History of total abdominal hysterectomy and bilateral salpingo-oophorectomy Family History Family History Father Asthma Mother Rheumatoid arthritis Cardiovascular disease Social History Social History Household Members: Family Housing: House Alcohol intake: current Alcohol intake frequency: does not drink Patient Tobacco Use Status: Never used Tobacco Use of substances other than those prescribed or required for medical reasons: No Advance Directives: Yes Advance Directives on File: Yes Advance Directives Date on File: 03/17/20
--- NOTE | 2021-04-30 20:46 | PC.NURSE ---
pt a&o, no sob or chest pain. Ua and labs collected and sent.
[2021-04-30 21:46] VITALS: BP 138/66; PULSE 91; RESP 16; TEMP 36.9; O2SAT 95
[2021-04-30] MEDS: Morphine Sulfate 4 MG/ML CARTRIDGE IVPUSH (21:47)
[2021-04-30 21:53] LABS: Lipase 27 U/L (8-78)
== END 2021-04-30 23:41 | disposition home or self-care (01) ==
PROVIDERS: Physician Assistant Medical; Emergency Provider Emergency Medicine Emergency Medical Services
DX: A42.1 Abdominal actinomycosis (principal); R19.7 Diarrhea, unspecified; R10.9 Unspecified abdominal pain; Z86.711 Personal history of pulmonary embolism; Z79.01 Long term (current) use of anticoagulants
CPT/HCPCS: 36415; 74176; 80053; 81003; 83690; 85025; 85610; 96374; 99284; J2270

== ENCOUNTER → 2021-05-05 15:21 | Outpatient (BNVA) | payer MEDICARE, MEDICAID, SELFPAY | PROVIDERS: Visit Provider Internal Medicine | DX: I26.99 Other pulmonary embolism without acute cor pulmonale (principal) | CPT/HCPCS: Q3014 ==

== ENCOUNTER → 2021-05-06 14:12 | Outpatient (BNVA) | payer MEDICARE, MEDICAID, SELFPAY | PROVIDERS: PCP Internal Medicine; Visit Provider Internal Medicine | DX: I26.99 Other pulmonary embolism without acute cor pulmonale (principal) | CPT/HCPCS: Q3014 ==

== ENCOUNTER → 2021-05-11 15:01 | Outpatient (BNVA) | payer MEDICARE, MEDICAID, SELFPAY | PROVIDERS: PCP Internal Medicine; Visit Provider Internal Medicine ==

== ENCOUNTER 2021-05-19 11:24 | Outpatient (REF) | payer MEDICARE, MEDICAID, SELFPAY ==
[2021-05-19 12:01] LABS: PLT CLUMP 1; SCAN SMEAR FLAG 1
[2021-05-19 12:03] LABS: Basophils Percent Auto 0.9 % (0-2); Eosinophils Absolute Auto 0.2 X10*3/uL (0.0-0.4); Hematocrit 43.2 % (37.0-47.0); Hemoglobin 13.3 g/dl (12.0-16.0); Lymphocytes Absolute Auto 2.6 X10*3/uL (1.2-4.9); Lymphocytes Percent Auto 56.8 % (20-40); MANUAL DIFF FLAG SCAN; Mean Corpuscular HGB Conc 30.8 g/dl (31.0-35.0); Mean Corpuscular Hemoglobin 27.3 pg (27.0-33.0); Mean Corpuscular Volume 88.7 fL (80.0-98.0); Monocytes Absolute Auto 0.4 X10*3/uL (0.1-1.2); Monocytes Percent Auto 9.4 % (2-11); Neutrophils Absolute Auto 1.3 x10*3/uL (2.0-8.3); Neutrophils Percent Auto 27.9 % (45-73); Red Blood Count 4.87 X10*6/uL (4.20-5.50); Red Cell Distribution Width 14.4 % (11.0-16.0)
[2021-05-19 13:02] LABS: Erythrocyte Sedimentation Rate 4 MM/HR (0-20)
[2021-05-19 13:19] LABS: Alanine Aminotransferase 22 U/L (0-31); Albumin Level 4.1 g/dL (3.5-5.0); Alkaline Phosphatase 79 U/L (39-117); Anion Gap 14 (12-20); Aspartate Amino Transferase 30 U/L (5-31); Bilirubin Total 0.7 mg/dL (0.0-1.0); Blood Urea Nitrogen 12 mg/dL (9-16); Calcium 9.8 mg/dL (8.4-10.2); Carbon Dioxide 26 mmol/L (22-29); Chloride 108 mmol/L (96-108); Estimated Glomerular Filt Rate > 60; Glucose Random 64 mg/dL (60-115); Potassium 4.4 mmol/L (3.3-5.1); Sodium 144 mmol/L (135-145); Total Protein 7.1 g/dL (6.5-8.0)
[2021-05-19 13:37] LABS: White Blood Count 4.6 X10*3/uL (4.8-10.8)
[2021-05-19 13:39] LABS: SLIDE REVIEW VERIFIED
== END 2021-05-19 11:25 | disposition home or self-care (01) ==
LOC: HO.LAB 11:24
PROVIDERS: PCP Internal Medicine; Visit Provider Nurse Practitioner Family
DX: I26.99 Other pulmonary embolism without acute cor pulmonale (principal); Z51.81 Encounter for therapeutic drug level monitoring; Z79.01 Long term (current) use of anticoagulants; M05.9 Rheumatoid arthritis with rheumatoid factor, unspecified; Z79.899 Other long term (current) drug therapy
CPT/HCPCS: 36415; 80053; 85025; 85652; 86140

== ENCOUNTER → 2021-05-30 13:42 | Outpatient (BNVA) | payer MEDICARE, MEDICAID, SELFPAY | PROVIDERS: PCP Internal Medicine; Visit Provider Internal Medicine | DX: I26.99 Other pulmonary embolism without acute cor pulmonale (principal); Z51.81 Encounter for therapeutic drug level monitoring; Z79.01 Long term (current) use of anticoagulants | CPT/HCPCS: Q3014 ==

== ENCOUNTER → 2021-06-03 13:56 | Outpatient (BNVA) | payer MEDICARE, MEDICAID, SELFPAY | PROVIDERS: PCP Internal Medicine; Visit Provider Internal Medicine ==

== ENCOUNTER → 2021-06-09 14:45 | Outpatient (BNVA) | payer MEDICARE, MEDICAID, SELFPAY | PROVIDERS: PCP Internal Medicine; Visit Provider Internal Medicine ==

== ENCOUNTER → 2021-06-16 12:29 | Outpatient (BNVA) | payer MEDICARE, SELFPAY | PROVIDERS: PCP Internal Medicine; Visit Provider Nurse Practitioner Family | DX: M05.9 Rheumatoid arthritis with rheumatoid factor, unspecified (principal); Z79.899 Other long term (current) drug therapy | CPT/HCPCS: 99212 ==

== ENCOUNTER → 2021-06-17 14:42 | Outpatient (BNVA) | payer MEDICARE, MEDICAID, SELFPAY | PROVIDERS: PCP Internal Medicine; Visit Provider Internal Medicine | DX: I26.99 Other pulmonary embolism without acute cor pulmonale (principal); Z51.81 Encounter for therapeutic drug level monitoring; Z79.01 Long term (current) use of anticoagulants | CPT/HCPCS: Q3014 ==

== ENCOUNTER → 2021-06-23 12:09 | Outpatient (BNVA) | payer MEDICARE, SELFPAY | PROVIDERS: PCP Internal Medicine; Visit Provider Internal Medicine ==

== ENCOUNTER 2021-06-29 13:39 | Outpatient (REF) | payer MEDICARE, SELFPAY ==
--- NOTE | ~2021-06-29 | MR_ITS ---
EXAMINATION: MR LUMBAR SPINE WITHOUT CONTRAST CLINICAL INFORMATION: 76-year-old with full incontinence of feces. COMPARISON: None TECHNIQUE: MRI of the lumbar spine was obtained using routine sequences without contrast. FINDINGS: SAGITTAL ALIGNMENT: 2 mm of grade 1 degenerative spondylolisthesis at L4-L5 noted without spondylolysis. Lumbar lordotic curvature is somewhat prominent. LUMBOSACRAL JUNCTION: Normal. VERTEBRAL BODIES: Moderate superior endplate compression fracture deformity of T12 and T11 noted with large Schmorl's nodes along the superior endplates. Remaining vertebral body heights are well maintained. DISC SPACES AND ENDPLATES: Mild disc space height loss at L5-S1 is noted with intradiscal degenerative signal changes, with mild anterior and paravertebral spondylosis. There is disc desiccation at L3-L4 and L4-L5 without significant disc space height loss. Only minimal disc desiccation seen throughout the remainder of the lumbar and visualized lower thoracic spinal levels. There is anterolateral spondylosis asymmetric to the right at the levels between T12-L1 and T10-T11. SPINAL CANAL: No abnormal developmental findings. BONE MARROW: Mild marrow edema noted adjacent to the superior endplates of T12 and T11 is nonspecific and may reflect type I degenerative endplate marrow signal changes. Cannot entirely exclude nonhealed superior endplate fractures at these levels. Remainder of the bone marrow signal intensity is within normal limits. CONUS MEDULLARIS: Terminates at L1-L2. Morphology and signal is normal. INTRADURAL NERVE ROOTS: Within normal limits. L5-S1: Mild disc bulging noted with minimal right lateral annular fissuring without significant thecal sac encroachment. Moderate to marked bilateral facet hypertrophic degenerative change is noted without significant spinal canal stenosis. Moderate bilateral neural foraminal stenosis is noted, with facet spurring encroaching on the exiting right L5 nerve root and to a lesser degree the left L5 nerve root. L4-L5: Unroofing of the posterior disc margin consistent with grade 1 degenerative spondylolisthesis. Slight flattening of the dural sac is noted asymmetric to the right with posterolateral endplate spurring asymmetric to the right involving the superior endplate of L5. There is marked bilateral facet hypertrophic degenerative change, with ligamentum flavum thickening. There is moderate central spinal canal stenosis and mild bilateral lateral recess stenosis with moderate right subarticular recess stenosis. No significant neural foraminal stenosis. L3-L4: Small inferior foraminal disc protrusions noted bilaterally with mild underlying disc bulging and slight flattening of the ventral dural sac. Moderate bilateral facet hypertrophic degenerative change is noted with ligamentum flavum thickening and mild central spinal canal stenosis. Mild narrowing of the left subarticular zone noted and mild right-sided neural foraminal stenosis without neural impingement. L2-L3: Small inferior foraminal disc protrusion noted without neural impingement. Setc-[id number] bilateral facet arthropathy noted without significant spinal canal stenosis. Moderate right-sided and mild left-sided neural foraminal stenosis noted with facet spurring abutting the exiting right L2 nerve root. L1-L2: Normal disc contour. Tiny central annular fissure noted. Mild ligamentum flavum thickening. No significant canal or neural foraminal stenosis. Slight retropulsion of the compressed superior endplate of T12 with slight flattening of the ventral dural sac without cord impingement or significant canal stenosis. There is yazh-go-thdicgcf facet arthropathy bilaterally at T11-T12 with vyve-dw-[id number] bilateral neural foraminal stenosis. There is bilateral facet arthropathy left more than right at T10-T11 with moderate to severe neural foraminal stenosis, left more than right at this level. PARASPINAL/RETROPERITONEAL: The paravertebral soft tissues appear unremarkable. MR/MR lumbar spine wo con IMPRESSION: 1. Mild grade 1 degenerative spondylolisthesis at L4-L5 with otherwise normal spinal alignment. 2. Multilevel bilateral facet arthrosis, most apparent at L4-L5, L5-S1 and L3-L4 with ligamentum flavum thickening, disc bulging and disc osteophyte complex, with moderate spinal canal stenosis at L4-L5 and mild spinal canal stenosis at L3-L4. 3. Multilevel moderate and mild degrees of neural foraminal stenosis, most apparent bilaterally at L5-S1 and on the right at L2-L3 and L3-L4 as well as at T10-T11 and T11-T12. 4. Moderate, benign-appearing compression fracture deformities along the superior endplates of T11 and T12 of indeterminate chronicity. Follow-up as per clinical indications.
== END 2021-06-29 13:40 | disposition home or self-care (01) ==
LOC: HO.MRI 13:39
PROVIDERS: PCP Internal Medicine; Visit Provider Internal Medicine
DX: M54.50 Low back pain, unspecified (principal); R15.9 Full incontinence of feces
CPT/HCPCS: 72148

== ENCOUNTER → 2021-07-07 14:00 | Outpatient (BNVA) | payer MEDICARE, SELFPAY | PROVIDERS: PCP Internal Medicine; Visit Provider Internal Medicine | DX: I26.99 Other pulmonary embolism without acute cor pulmonale (principal); Z51.81 Encounter for therapeutic drug level monitoring; Z79.01 Long term (current) use of anticoagulants | CPT/HCPCS: Q3014 ==

== ENCOUNTER → 2021-07-14 16:36 | Outpatient (BNVA) | payer MEDICARE, SELFPAY | PROVIDERS: PCP Internal Medicine; Visit Provider Internal Medicine | DX: I26.99 Other pulmonary embolism without acute cor pulmonale (principal); Z51.81 Encounter for therapeutic drug level monitoring; Z79.01 Long term (current) use of anticoagulants | CPT/HCPCS: Q3014 ==

== ENCOUNTER → 2021-07-27 13:56 | Outpatient (BNVA) | payer MEDICARE, SELFPAY | PROVIDERS: PCP Internal Medicine; Visit Provider Internal Medicine | DX: Z13.89 Encounter for screening for other disorder (principal) ==

== ENCOUNTER → 2021-08-11 13:43 | Outpatient (BNVA) | payer MEDICARE, SELFPAY | PROVIDERS: PCP Internal Medicine; Visit Provider Internal Medicine | DX: I26.99 Other pulmonary embolism without acute cor pulmonale (principal); Z79.01 Long term (current) use of anticoagulants; Z51.81 Encounter for therapeutic drug level monitoring | CPT/HCPCS: Q3014 ==

== ENCOUNTER → 2021-08-15 13:33 | Outpatient (BNVA) | payer MEDICARE, SELFPAY | PROVIDERS: PCP Internal Medicine; Visit Provider Internal Medicine | DX: I26.99 Other pulmonary embolism without acute cor pulmonale (principal); Z79.01 Long term (current) use of anticoagulants; Z51.81 Encounter for therapeutic drug level monitoring | CPT/HCPCS: Q3014 ==

== ENCOUNTER → 2021-08-18 12:03 | Outpatient (BNVA) | payer MEDICARE, SELFPAY | PROVIDERS: PCP Internal Medicine; Visit Provider Internal Medicine | DX: Z13.89 Encounter for screening for other disorder (principal) ==

== ENCOUNTER 2021-08-19 14:00 | Outpatient (REF) | payer MEDICARE, SELFPAY ==
[2021-08-19 14:16] LABS: MANUAL DIFF FLAG NO
[2021-08-19 14:20] LABS: Basophils Percent Auto 0.9 % (0-2); Eosinophils Absolute Auto 0.2 X10*3/uL (0.0-0.4); Eosinophils Percent Auto 4.8 % (0-4); Hemoglobin 12.9 g/dl (12.0-16.0); Lymphocytes Absolute Auto 1.8 X10*3/uL (1.2-4.9); Lymphocytes Percent Auto 50.9 % (20-40); Mean Corpuscular Hemoglobin 26.8 pg (27.0-33.0); Mean Corpuscular Volume 89.4 fL (80.0-98.0); Monocytes Absolute Auto 0.5 X10*3/uL (0.1-1.2); Monocytes Percent Auto 13.6 % (2-11); Neutrophils Absolute Auto 1.1 x10*3/uL (2.0-8.3); Neutrophils Percent Auto 29.8 % (45-73); Platelet Count 207 X10*3/uL (160-400); Red Blood Count 4.81 X10*6/uL (4.20-5.50); Red Cell Distribution Width 15.6 % (11.0-16.0); White Blood Count 3.5 X10*3/uL (4.8-10.8)
[2021-08-19 14:48] LABS: Alanine Aminotransferase 23 U/L (0-31); Albumin Level 3.7 g/dL (3.5-5.0); Alkaline Phosphatase 56 U/L (39-117); Anion Gap 9 (12-20); Aspartate Amino Transferase 30 U/L (5-31); Bilirubin Total 0.5 mg/dL (0.0-1.0); Blood Urea Nitrogen 15 mg/dL (9-16); Calcium 9.4 mg/dL (8.4-10.2); Carbon Dioxide 31 mmol/L (22-29); Chloride 107 mmol/L (96-108); Estimated Glomerular Filt Rate > 60; Glucose Random 81 mg/dL (60-115); Potassium 4.7 mmol/L (3.3-5.1); Sodium 142 mmol/L (135-145); Total Protein 6.4 g/dL (6.5-8.0)
[2021-08-19 15:10] LABS: Erythrocyte Sedimentation Rate 2 MM/HR (0-20)
== END 2021-08-19 14:01 | disposition home or self-care (01) ==
LOC: HO.LAB 14:00
PROVIDERS: PCP Internal Medicine; Visit Provider Student in an Organized Health Care Education/Training Program
DX: M06.9 Rheumatoid arthritis, unspecified (principal)
CPT/HCPCS: 36415; 80053; 85025; 85652; 86140

== ENCOUNTER → 2021-08-22 08:24 | Outpatient (BNVA) | payer MEDICARE, SELFPAY | PROVIDERS: PCP Internal Medicine; Visit Provider Nurse Practitioner Family | DX: M05.9 Rheumatoid arthritis with rheumatoid factor, unspecified (principal); Z79.899 Other long term (current) drug therapy | CPT/HCPCS: 99212 ==

== ENCOUNTER → 2021-08-29 16:43 | Outpatient (BNVA) | payer MEDICARE, SELFPAY | PROVIDERS: PCP Internal Medicine; Visit Provider Internal Medicine | DX: I26.99 Other pulmonary embolism without acute cor pulmonale (principal); Z51.81 Encounter for therapeutic drug level monitoring; Z79.01 Long term (current) use of anticoagulants | CPT/HCPCS: Q3014 ==

== ENCOUNTER → 2021-09-08 14:46 | Outpatient (BNVA) | payer MEDICARE, SELFPAY | PROVIDERS: PCP Internal Medicine; Visit Provider Internal Medicine | DX: Z13.89 Encounter for screening for other disorder (principal) ==

== ENCOUNTER → 2021-09-15 10:57 | Outpatient (BNVA) | payer MEDICARE, SELFPAY | PROVIDERS: PCP Internal Medicine; Visit Provider Internal Medicine | DX: I26.99 Other pulmonary embolism without acute cor pulmonale (principal); Z79.01 Long term (current) use of anticoagulants; Z51.81 Encounter for therapeutic drug level monitoring | CPT/HCPCS: Q3014 ==

== ENCOUNTER → 2021-09-29 16:06 | Outpatient (BNVA) | payer MEDICARE, SELFPAY | PROVIDERS: PCP Internal Medicine; Visit Provider Internal Medicine | DX: I26.99 Other pulmonary embolism without acute cor pulmonale (principal); Z79.01 Long term (current) use of anticoagulants; Z51.81 Encounter for therapeutic drug level monitoring | CPT/HCPCS: Q3014 ==

== ENCOUNTER → 2021-10-03 15:43 | Outpatient (BNVA) | payer MEDICARE, SELFPAY | PROVIDERS: PCP Internal Medicine; Visit Provider Internal Medicine | DX: Z13.89 Encounter for screening for other disorder (principal) ==

== ENCOUNTER → 2021-10-21 14:29 | Outpatient (BNVA) | payer MEDICARE, SELFPAY | PROVIDERS: PCP Internal Medicine; Visit Provider Internal Medicine | DX: I26.99 Other pulmonary embolism without acute cor pulmonale (principal); Z79.01 Long term (current) use of anticoagulants; Z51.81 Encounter for therapeutic drug level monitoring | CPT/HCPCS: Q3014 ==

== ENCOUNTER → 2021-10-25 15:35 | Outpatient (BNVA) | payer MEDICARE, SELFPAY | PROVIDERS: PCP Internal Medicine; Visit Provider Internal Medicine | DX: I26.99 Other pulmonary embolism without acute cor pulmonale (principal); Z79.01 Long term (current) use of anticoagulants; Z51.81 Encounter for therapeutic drug level monitoring | CPT/HCPCS: Q3014 ==

== ENCOUNTER → 2021-11-01 15:33 | Outpatient (BNVA) | payer MEDICARE, SELFPAY | PROVIDERS: PCP Internal Medicine; Visit Provider Internal Medicine | DX: I26.99 Other pulmonary embolism without acute cor pulmonale (principal); Z79.01 Long term (current) use of anticoagulants; Z51.81 Encounter for therapeutic drug level monitoring | CPT/HCPCS: Q3014 ==

== ENCOUNTER → 2021-11-15 15:44 | Outpatient (BNVA) | payer MEDICARE, SELFPAY | PROVIDERS: PCP Internal Medicine; Visit Provider Internal Medicine | DX: I26.99 Other pulmonary embolism without acute cor pulmonale (principal); Z79.01 Long term (current) use of anticoagulants; Z51.81 Encounter for therapeutic drug level monitoring | CPT/HCPCS: Q3014 ==

== ENCOUNTER 2021-11-25 15:00 | Outpatient (REF) | payer MEDICARE, SELFPAY ==
--- NOTE | ~2021-11-25 | XR_ITS ---
EXAMINATION: XR CERVICAL SPINE CLINICAL INFORMATION: Rheumatoid arthritis COMPARISON: None TECHNIQUE: 3 views of the cervical spine were obtained. FINDINGS: Bone alignment is normal. No fracture or dislocation is seen. There is degenerative spondylosis at C3-C4 C5-C6 and C6-C7 and C7-T1. There is disc space narrowing from C5-C6 to C7-T1. Prevertebral soft tissues are normal. There is bilateral lateral calcification probably representing carotid calcification. XR/XR cervical spine 2V IMPRESSION: Multilevel degenerative spondylosis and degenerative disc disease.
[2021-11-25 15:13] LABS: MANUAL DIFF FLAG NO
[2021-11-25 15:43] LABS: Basophils Percent Auto 0.4 % (0-2); Eosinophils Absolute Auto 0.1 X10*3/uL (0.0-0.4); Eosinophils Percent Auto 2.7 % (0-4); Hematocrit 38.7 % (37.0-47.0); Imm Gran Abs Auto 0.01 X10*3/uL (0.00-0.03); Imm Gran Pct Auto 0.2 % (0.0-0.4); Lymphocytes Absolute Auto 2.4 X10*3/uL (1.2-4.9); Lymphocytes Percent Auto 53.7 % (20-40); Mean Corpuscular Hemoglobin 27.1 pg (27.0-33.0); Mean Corpuscular Volume 87.6 fL (80.0-98.0); Mean Platelet Volume 10.1 fL (9.4-12.3); Monocytes Absolute Auto 0.5 X10*3/uL (0.1-1.2); Neutrophils Absolute Auto 1.4 x10*3/uL (2.0-8.3); Platelet Count 248 X10*3/uL (160-400); Red Blood Count 4.42 X10*6/uL (4.20-5.50); Red Cell Distribution Width 15.9 % (11.0-16.0); White Blood Count 4.5 X10*3/uL (4.8-10.8)
[2021-11-25 16:07] LABS: Alanine Aminotransferase 14 U/L (0-31); Albumin Level 3.9 g/dL (3.5-5.0); Alkaline Phosphatase 59 U/L (39-117); Anion Gap 13 (12-20); Aspartate Amino Transferase 30 U/L (5-31); Bilirubin Total 0.5 mg/dL (0.0-1.0); Blood Urea Nitrogen 11 mg/dL (9-16); Calcium 9.4 mg/dL (8.4-10.2); Carbon Dioxide 28 mmol/L (22-29); Chloride 108 mmol/L (96-108); Cholesterol 245 mg/dL; Estimated Glomerular Filt Rate > 60; Glucose Random 76 mg/dL (60-115); HDL Cholesterol 68 mg/dL; LDL Cholesterol Calculated 164 mg/dl; Potassium 4.8 mmol/L (3.3-5.1); Sodium 144 mmol/L (135-145); Total Protein 6.7 g/dL (6.5-8.0); Triglycerides 66 mg/dL
[2021-11-25 16:18] LABS: Erythrocyte Sedimentation Rate 6 MM/HR (0-20)
[2021-11-25 16:20] LABS: Reflex LDLD? No
== END 2021-11-25 15:01 | disposition home or self-care (01) ==
LOC: HO.XRAY 15:00
PROVIDERS: PCP Internal Medicine; Visit Provider Nurse Practitioner Family
DX: M05.9 Rheumatoid arthritis with rheumatoid factor, unspecified (principal); M54.2 Cervicalgia; I26.99 Other pulmonary embolism without acute cor pulmonale
CPT/HCPCS: 36415; 72040; 80053; 80061; 85025; 85652; 86140

== ENCOUNTER 2021-12-05 12:46 | Outpatient (REF) | payer OTHER, SELFPAY ==
--- NOTE | ~2021-12-05 | XR_ITS ---
EXAMINATION: XR HIP, LEFT CLINICAL INFORMATION: Rheumatoid arthritis. COMPARISON: CT abdomen and pelvis 04/30/2021 TECHNIQUE: Two views of the left hip. FINDINGS: No fracture or dislocation. No radiographic evidence of femoral head avascular necrosis. No osseous lesion. Left hip joint space appears fairly well-maintained with minimal acetabular marginal osteophyte formation. No erosions are seen. Mild subchondral sclerosis at the pubic symphysis and left sacroiliac joint compatible with mild degenerative change. Mild enthesophyte formation at the left greater trochanter. A venous filter device projects over the left upper pelvis. XR/XR hip LT min 2V IMPRESSION: 1. No acute osseous injury. 2. Preserved left hip joint space with minimal degenerative change. No erosions.
== END 2021-12-05 12:47 | disposition home or self-care (01) ==
LOC: HO.XRAY 12:46
PROVIDERS: PCP Internal Medicine; Visit Provider Nurse Practitioner Family
DX: M05.9 Rheumatoid arthritis with rheumatoid factor, unspecified (principal); M25.552 Pain in left hip; Z79.899 Other long term (current) drug therapy
CPT/HCPCS: 73502; 99212

== ENCOUNTER 2021-12-31 10:25 | Outpatient (REF) | payer OTHER, SELFPAY ==
[2021-12-31 11:19] LABS: Appearance Urine CLEAR; Color Urine YELLOW; Glucose Urine UA NEG (NEG); Leukocyte Esterase Urine 1+ (NEG); Nitrite Urine NEG (NEG); PH 5.5 (5.0-8.0); Specific Gravity - Urine 1.025 (1.005-1.025); UACC Culture Trigger YES; Urine Blood NEG (NEG); Urine Ketones NEG (NEG); Urine Protein NEG (NEG-TRACE)
[2021-12-31 11:40] LABS: Bacteria Urine 1+ /LPF; RBC Urine 0-2 /HPF (0); Squamous Epithelial Cell Urine 3+ /LPF
== END 2021-12-31 10:26 | disposition home or self-care (01) ==
LOC: HO.LAB 10:25
PROVIDERS: Internal Medicine; PCP Internal Medicine; Visit Provider Internal Medicine
DX: R53.1 Weakness (principal)
CPT/HCPCS: 81001; 81003; 87086

== ENCOUNTER → 2022-01-05 10:42 | Outpatient (BNVA) | payer OTHER, SELFPAY | PROVIDERS: PCP Internal Medicine; Visit Provider Internal Medicine | DX: I26.99 Other pulmonary embolism without acute cor pulmonale (principal); Z79.01 Long term (current) use of anticoagulants; Z51.81 Encounter for therapeutic drug level monitoring | CPT/HCPCS: Q3014 ==

== ENCOUNTER 2022-01-12 14:00 | Outpatient (RCR) | payer OTHER, SELFPAY ==
--- NOTE | 2022-01-11 13:40 | MHC.PT.EP ---
[facility] [place] [facility] [place] [facility] [place] [facility] [address] [phone] F: [phone] F: [phone] F: [phone] F: [phone] Physical Therapy Plan of Care Date of Evaluation: Date of Surgery: Diagnosis: Cervical pain Assessment: Pt is a 77 y/o female with RA referred to PT for eval and treat of cervicalgia resulting in decreased tolerance for reading and recreation, performing HH chores, performing self-care dressing and washing, and ability to concentrate, as well as disturbed sleep secondary to severe loss of cervical ROM, increased accessory tissue tension and TTP, forward head posture, decreased cervical and postural strength, and pain. Pt is deemed an appropriate candidate to receive skilled PT in order to address her physical limitations to improve her functional ability. Frequency and Duration: The patient will be seen 2 x / wk x 5 wks. Short Term Goals: Initiate HEP. Improve cervical baseline pain from 7/10 to < 5/10. Public Health Teacher Goals: I with HEP. Pt will report Improved BARRETO Sx form strong and all the time to moderate and infrequent. Pt will no longer report painful rotation ROM. Pt will report at most 1/4 disturbed night sleep d/t cervical pain; initial: completely disturbed. Treatment Plan: Modalities to reduce pain, spasms and effusion. Manual therapy to restore motion and function. Therapeutic exercise to improve strength and flexibility. Neuromuscular re-education for posture and balance. Therapeutic activities to return to functional activities of daily living. Electronically signed by: Jeanmarie Sandoval PT. Please sign and return to therapist. Thank you for your referral.
--- NOTE | 2022-04-27 15:06 | MHC.PT.DC ---
[facility] [place] Office [place] [facility] [place] [facility] [address] Jhony Daigle [address] [phone] F: [phone] F: [phone] F: [phone] F: [phone] Physical Therapy Discharge Report Diagnosis: Cervical pain Date of Surgery: Date of Evaluation: 01/06/22 Date of Discharge: 04/27/22 Treatments to Date: 2 Cancellations to Date: 4 No Shows to Date: 4 Discharge Status: Visit Non-compliance Discharge Summary: Pt c/o N/T and cramping with exs, modified or DC exs at that time. Pt required min assist with supine to sit transfer. Pt mobility very limited Electronically signed by: Jeanmarie Sandoval, PT Please sign and return to therapist. Thank you for your referral.
== END 2022-04-27 15:05 | disposition home or self-care (01) ==
LOC: HO.PTCHIC 14:00
PROVIDERS: PCP Internal Medicine; Visit Provider Nurse Practitioner Family
DX: M54.2 Cervicalgia (principal); M54.50 Low back pain, unspecified
CPT/HCPCS: 97110; 97140; 97161; Q3014

== ENCOUNTER 2022-01-18 13:30 | Outpatient (REF) | payer OTHER, SELFPAY ==
--- NOTE | ~2022-01-18 | MM_ITS ---
EXAMINATION: BONE DENSITOMETRY CLINICAL INDICATION: Wedge compression fracture of unspecified thoracic vertebra. COMPARISON: This is the patient's baseline examination. TECHNIQUE: Using a [employer] DXA System (software version: 13.1) manufactured by [employer], dual-energy x-ray absorptiometry was performed of the lumbar spine and left hip. The images are of good technical quality. Summary results are attached. FINDINGS: AP SPINE L1-L3 (excluding L4): The data of L1-L4 has been changed to exclude the L4 vertebral body, because degenerative sclerosis at this level may cause overestimation of lumbar spine density. BMD 0.748 g/cm2, Z-score -2.1, T-score -3.5, osteoporosis. LEFT FEMUR, NECK: BMD 0.627 g/cm2, Z-score -1.2, T-score -3.0, osteoporosis. LEFT FEMUR, TOTAL: BMD 0.740 g/cm2, Z-score -0.5, T-score -2.1, osteopenia. IDENTIFIED RISK FACTORS: Menopause, rheumatoid arthritis, anticonvulsant, bilateral oophorectomy, glucocorticoids (chronic), hysterectomy, low calcium intake, secondary osteoporosis. HISTORY OF FRACTURE: None listed. MEDICATIONS: Calcium. MM/XR DEXA axial skeleton IMPRESSION: 1. DIAGNOSIS: Osteoporosis based on the lowest T-score value of -3.5 in the lumbar spine applying World Health Organization criteria. 2. 10-YEAR FRACTURE RISK PREDICTION, FRAX: Major osteoporotic fracture (clinical spine, forearm, hip or shoulder) 26.6%. Hip fracture 12.2%. 3. Treatment Recommendations: NOF guidelines recommend consideration for treatment in postmenopausal women and men age 50 and older presenting with the following: -A hip or vertebral (clinical or morphometric) fracture. -T-score less than or equal to -2.5 at the femoral neck or spine after appropriate evaluation to exclude secondary causes. -Low bone mass at the hip or spine and a 10-year fracture probability by FRAX of greater than or equal to 3% for hip fracture or greater than or equal to 20% for major osteoporotic fracture based on the [place] adapted WHO algorithm. 4. Other Recommendations: All treatment decisions require clinical judgment and consideration of individual patient factors, including patient preferences, comorbidities, previous drug use, risk factors not captured in the FRAX model (e.g. frailty, falls, vitamin D deficiency, increased bone turnover, interval significant decline in bone density) and possible under or overestimation of fracture risk by FRAX. Additional medical evaluation for secondary cause of low bone mineral density may be appropriate. FUTURE SCAN RECOMMENDATION: People with diagnosed cases of osteoporosis or at high risk for fracture should have regular bone mineral density tests. For patients eligible for Medicare, routine testing is allowed once every 2 years. The testing frequency can be increased to one year for patients who have rapidly progressing disease, those who are receiving or discontinuing medical therapy to restore bone mass, or have additional risk factors.
== END 2022-01-18 13:31 | disposition home or self-care (01) ==
LOC: HO.MAMMO 13:30
PROVIDERS: Visit Provider Nurse Practitioner Family
DX: Z13.820 Encounter for screening for osteoporosis (principal); S22.000A Wedge compression fracture of unspecified thoracic vertebra, initial encounter for closed fracture; Z78.0 Asymptomatic menopausal state
CPT/HCPCS: 77080

== ENCOUNTER → 2022-01-24 10:49 | Outpatient (BNVA) | payer OTHER, SELFPAY | PROVIDERS: PCP Internal Medicine; Visit Provider Internal Medicine | DX: I26.99 Other pulmonary embolism without acute cor pulmonale (principal); Z79.01 Long term (current) use of anticoagulants; Z51.81 Encounter for therapeutic drug level monitoring | CPT/HCPCS: Q3014 ==

== ENCOUNTER 2022-01-31 12:30 | Outpatient (REF) | payer OTHER, SELFPAY ==
[2022-01-31 12:47] LABS: MANUAL DIFF FLAG NO
[2022-01-31 13:41] LABS: Basophils Percent Auto 0.2 % (0-2); Hematocrit 38.9 % (37.0-47.0); Hemoglobin 12.1 g/dl (12.0-16.0); Imm Gran Abs Auto 0.02 X10*3/uL (0.00-0.03); Imm Gran Pct Auto 0.3 % (0.0-0.4); Lymphocytes Absolute Auto 1.7 X10*3/uL (1.2-4.9); Lymphocytes Percent Auto 26.7 % (20-40); Mean Corpuscular HGB Conc 31.1 g/dl (31.0-35.0); Mean Corpuscular Hemoglobin 26.9 pg (27.0-33.0); Mean Corpuscular Volume 86.6 fL (80.0-98.0); Mean Platelet Volume 10.3 fL (9.4-12.3); Monocytes Absolute Auto 0.6 X10*3/uL (0.1-1.2); Monocytes Percent Auto 9.6 % (2-11); Neutrophils Absolute Auto 4.1 x10*3/uL (2.0-8.3); Neutrophils Percent Auto 63.2 % (45-73); Platelet Count 337 X10*3/uL (160-400); Red Blood Count 4.49 X10*6/uL (4.20-5.50); Red Cell Distribution Width 14.9 % (11.0-16.0); White Blood Count 6.5 X10*3/uL (4.8-10.8)
[2022-01-31 13:57] LABS: Alanine Aminotransferase 13 U/L (0-31); Aspartate Amino Transferase 19 U/L (5-31); C Reactive Protein 0.35 mg/dL (< or = 0.50); Estimated Glomerular Filt Rate > 60
[2022-01-31 14:21] LABS: Erythrocyte Sedimentation Rate 23 MM/HR (0-20)
== END 2022-01-31 12:31 | disposition home or self-care (01) ==
LOC: HO.LAB 12:30
PROVIDERS: PCP Internal Medicine; Visit Provider Nurse Practitioner Family
DX: M05.9 Rheumatoid arthritis with rheumatoid factor, unspecified (principal); Z79.899 Other long term (current) drug therapy
CPT/HCPCS: 36415; 82565; 84450; 84460; 85025; 85652; 86140

== ENCOUNTER 2022-01-31 13:43 | Observation (INO) | payer OTHER, SELFPAY ==
--- NOTE | ~2022-01-31 | MR_ITS ---
EXAMINATION: MR angio neck wo/w con, MR angio head wo/w con CLINICAL INFORMATION: Dizziness COMPARISON: MRI of the head without contrast 01/31/2022 TECHNIQUE: Routine MRA of the head and neck was performed before and after the administration of 10 mL Gadavist intravenous contrast. 3D postprocessing including acquisition of multiplanar MIP reformats are obtained at the technologist workstation and utilized for image interpretation. Stenoses are assessed in accordance with NASCET criteria unless otherwise indicated. FINDINGS: MRA Head: Normal flow-related and contrast signal within the anterior circulation without evidence of focal stenosis or occlusion of the intradural internal carotid, middle cerebral, or anterior cerebral arteries. Normal flow-related signal within the posterior circulation without evidence of focal stenosis or occlusion of the intradural vertebral, basilar, superior cerebellar, or posterior cerebral arteries. The intradural right vertebral artery is diffusely diminutive, likely on a congenital basis. No demonstrated intradural aneurysms. MRA Neck: Normal appearance of the left common and internal carotid arteries. The right common carotid artery is widely patent. There is stenosis of the origin of the right ICA which appears less than 50% and is likely related to atherosclerotic disease. There is symmetric loss of contrast enhancement of the distal V2 segments of the vertebral arteries, likely artifactual related to slice selection. Otherwise normal appearance of the cervical vertebral arteries. The left vertebral artery is dominant. No evidence of significant stenosis or occlusion. Limited evaluation of the neck and upper thorax is without significant abnormality. MR/MR angio neck wo/w con IMPRESSION: 1. No arterial high-grade stenosis or large vessel occlusion in the head or neck. 2. Less than 50% stenosis of the right internal carotid artery origin, likely on the basis of atherosclerotic disease.
--- NOTE | ~2022-01-31 | MR_ITS ---
EXAMINATION: MR BRAIN WITHOUT CONTRAST CLINICAL INFORMATION: Dizziness. Nausea. Vomiting. Nystagmus. COMPARISON: CT head from 01/31/2022. Brain MRI from 07/23/2019. TECHNIQUE: MRI of the brain was obtained using routine sequences without contrast. FINDINGS: No focal restricted diffusion is demonstrated to suggest acute or subacute cerebral ischemia. No evidence of acute or chronic hemorrhagic products on heme-sensitive imaging. Chronic mineralization of the basal ganglia and left dentate nucleus. Scattered periventricular, deep white matter, and brainstem T2 FLAIR hyperintensities consistent with moderate underlying microangiopathy. Proportional prominence of the ventricles and sulcal spaces without evidence of obstructive hydrocephalus. No abnormal mass effect. No midline shift. The sella turcica is mildly expanded with partial flattening of the pituitary gland. Normal positioning of the cerebellar tonsils. Normal arterial and venous vascular flow voids are present. Normal, homogeneous marrow signal. Moderate degenerative spondyloarthropathy of the visualized upper cervical spine. Mild mucosal thickening of the paranasal sinuses. Small right-sided mastoid effusion. No signal abnormalities within the left-sided mastoid. Bilateral lens extractions. MR/MR head/brain wo con IMPRESSION: 1. No acute intracranial abnormalities. 2. Moderate underlying microangiopathy and generalized cerebral volume loss. 3. Small right-sided mastoid effusion.
--- NOTE | ~2022-01-31 | CT_ITS ---
EXAMINATION: CT HEAD WITHOUT CONTRAST (STROKE PROTOCOL) CLINICAL INFORMATION: Stroke protocol. Dizziness, nausea and vomiting and nystagmus COMPARISON: None TECHNIQUE: Contiguous axial imaging was performed from the skull base to vertex without intravenous administration of contrast. This CT examination was performed using dose optimization techniques as appropriate, variously including the following: *Automated exposure control *Adjustment of mA and/or kV according to patient size (this includes techniques or standardized protocols for targeted exams where dose is matched to indication/reason for exam; i.e. extremities or head) *Use of iterative reconstruction technique DLP: 731 mGy-cm FINDINGS: There is no evidence of an extra-axial collection. There is no evidence of intra-axial or extra-axial hemorrhage. The ventricles and extra-axial CSF spaces are appropriate. There is mild nonspecific periventricular white matter disease. No mass, mass effect or infarct is seen. Evaluation of the skull base is limited due to motion artifact. No skull fracture is seen. Visualized paranasal sinuses, mastoid air cells and middle ears are clear. CT/CT head for stroke IMPRESSION: No acute findings. Mild nonspecific periventricular white matter disease. This critical result was discussed with Ivy Wilkerson at 1415 hours on 01/31/2022. It was ascertained that the content and urgency of the report was understood at the time of direct communication.
--- NOTE | ~2022-01-31 | CT_ITS ---
EXAMINATION: CT ABDOMEN AND PELVIS WITHOUT CONTRAST CLINICAL INFORMATION: Epigastric pain COMPARISON: CT abdomen and pelvis 04/30/2021 TECHNIQUE: Multidetector volumetric imaging was performed from the superior aspect of the liver through the pubic symphysis. Sagittal and coronal reformatted images were obtained on the technologist's workstation. Oral contrast was administered. This CT examination was performed using dose optimization techniques as appropriate, variously including the following: *Automated exposure control *Adjustment of mA and/or kV according to patient size (this includes techniques or standardized protocols for targeted exams where dose is matched to indication/reason for exam; i.e. extremities or head) *Use of iterative reconstruction technique DLP: 720 mGy-cm FINDINGS: LUNG BASES: Mild bibasilar atelectasis. LAD coronary calcifications and mitral annular calcification. Trace pericardial fluid. LIVER, GALLBLADDER, AND BILIARY TREE: The liver is normal in size, shape, and attenuation. No focal hepatic lesion or biliary ductal dilatation is present. Status post cholecystectomy. Surgical clips in the gallbladder fossa. PANCREAS: Unremarkable. SPLEEN: Unremarkable. ADRENAL GLANDS: Unremarkable. KIDNEYS AND URETERS: The kidneys are normal in size, shape, and attenuation. No hydronephrosis, hydroureter, or calculi seen. No perinephric stranding. BLADDER: Unremarkable. GASTROINTESTINAL TRACT: Postsurgical changes of prior gastric bypass. Mild colonic diverticulosis most pronounced involving the descending and sigmoid colon. No evidence of acute diverticulitis. No dilated bowel loops. No bowel wall thickening. Administered oral contrast has transited into the descending colon. Suture material at the cecal base, presumably prior appendectomy. Correlate with surgical history. Appendix not visualized. No inflammatory change. No ascites or free air. ABDOMINAL WALL: Prior healed midline incision. No hernia. Prominent subcutaneous varicose veins in the lower anterior pelvis. LYMPH NODES: No lymphadenopathy. VASCULAR: Normal caliber abdominal aorta. Moderate vascular calcifications. Vascular filters in the lower IVC and left iliac vein, unchanged in appearance. The tines extends the on the vessel lumen, unchanged. PELVIC VISCERA: Status post hysterectomy. OSSEOUS STRUCTURES: No acute fracture or suspicious osseous lesion. Unchanged superior plate compression deformities of T11 and T12. Mild multilevel degenerative disc disease. Multilevel lumbar facet arthrosis. CT/CT abdomen pelvis wo IV con IMPRESSION: 1. No evidence of bowel obstruction or other acute intra-abdominal process. 2. Status post gastric bypass. 3. Additional chronic ancillary findings, as described.
--- NOTE | 2022-01-31 13:54 | ECG_ITS ---
Test Reason : dizziness Blood Pressure : / mmHG Vent. Rate : 075 BPM Atrial Rate : 075 BPM P-R Int : 136 ms QRS Dur : 078 ms QT Int : 412 ms P-R-T Axes : 041 -06 022 degrees QTc Int : 460 ms Normal sinus rhythm Normal ECG When compared with ECG of 14-JAN-2020 13:53, Premature ventricular complexes are no longer Present Sinus rhythm is no longer with ventricular escape complexes Referred By: Ivy Wilkerson Electronically Signed By:VANESSA WAYNE
[2022-01-31 14:12] VITALS: BP 212/110; PULSE 84; RESP 16; O2SAT 95; BMI 31.2
[2022-01-31 14:26] LABS: MANUAL DIFF FLAG NO
[2022-01-31 14:27] LABS: Basophils Percent Auto 0.1 % (0-2); Eosinophils Percent Auto 0.1 % (0-4); Hematocrit 44.6 % (37.0-47.0); Hemoglobin 14.1 g/dl (12.0-16.0); Imm Gran Abs Auto 0.01 X10*3/uL (0.00-0.03); Imm Gran Pct Auto 0.1 % (0.0-0.4); Lymphocytes Percent Auto 30.2 % (20-40); Mean Corpuscular HGB Conc 31.6 g/dl (31.0-35.0); Mean Corpuscular Hemoglobin 27.3 pg (27.0-33.0); Mean Corpuscular Volume 86.4 fL (80.0-98.0); Mean Platelet Volume 10.1 fL (9.4-12.3); Monocytes Absolute Auto 0.5 X10*3/uL (0.1-1.2); Monocytes Percent Auto 6.7 % (2-11); Neutrophils Absolute Auto 4.2 x10*3/uL (2.0-8.3); Neutrophils Percent Auto 62.8 % (45-73); Platelet Count 320 X10*3/uL (160-400); Red Blood Count 5.16 X10*6/uL (4.20-5.50); Red Cell Distribution Width 14.7 % (11.0-16.0); White Blood Count 6.7 X10*3/uL (4.8-10.8)
[2022-01-31] MEDS: Metoclopramide HCl 10 MG/2 ML VIAL IVPUSH (14:29)
[2022-01-31 14:33] LABS: INTERNATIONAL NORM RATIO 2.9 (0.9-1.1); Prothrombin Time 35.4 SEC (10.0-13.1)
[2022-01-31 14:36] LABS: Partial Thromboplastin Time 39.4 SEC (26.0-36.4)
[2022-01-31] MEDS: Labetalol HCL 100 MG/20 ML VIAL 20 MG IVPUSH (14:36)
[2022-01-31 14:44] LABS: Alanine Aminotransferase 14 U/L (0-31); Albumin Level 4.3 g/dL (3.5-5.0); Alkaline Phosphatase 88 U/L (39-117); Anion Gap 18 (12-20); Aspartate Amino Transferase 23 U/L (5-31); Bilirubin Direct 0.2 mg/dL (0.0-0.5); Bilirubin Total 0.4 mg/dL (0.0-1.0); Blood Urea Nitrogen 16 mg/dL (9-16); Calcium 9.3 mg/dL (8.4-10.2); Carbon Dioxide 20 mmol/L (22-29); Chloride 106 mmol/L (96-108); Creatinine Clr Calc Pharmacy 52.4; Estimated Glomerular Filt Rate > 60; Glucose Random 147 mg/dL (60-115); Magnesium 2.4 mg/dL (1.6-2.6); Sodium 140 mmol/L (135-145); Total Protein 7.9 g/dL (6.5-8.0)
[2022-01-31 14:45] LABS: Stroke Lab Use COMPLETE
[2022-01-31 14:48] LABS: Troponin-I High Sensitivity < 3.5 ng/L (<3.5-17.0)
--- NOTE | 2022-01-31 14:50 | MHC.STROKE ---
Addendum entered by Flakita Rucker RN 01/31/22 16:29: I ACCOMPANIED THE PATIENT TO MRI AND HER DAUGHTER ALSO CAME. I EXPLAINED THE ENTIRE PROCESS AND PROVIDED REASSURANCE. WE THEN WENT BACK TO THE ROOM #1 IN THE ED. I DID TAKE HER BP AND THE SBP CAME DOWN TO 149. I DID ANSWER ALL OF THEIR QUESTIONS AND PROVIDED STROKE EDUCATION, INCLUDING HER RISK FACTORS, CALLING 911, FOLLOWING UP WITH HER PROVIDER, TAKING HER MEDICATIONS. Original Note: 1358 NOTIFIED BY ED THAT STROKE PROTOCOL WAS ACTIVATED. PATIENT WAS IN THE [facility] AND AT 1330 SHE HAD SUDDEN ONSET NAUSEA/VOMITING, HORIZONTAL NYSTAGMUS, OVERALL WEAKNESS LEFT GREATER THAN RIGHT, RIGHT DROOP. PMH: DVT'S, PE, IVP FILTERS IN 1991 AND 2001 ON [place], POC INR 3.1. EXCLUDED FROM TPA-ALTEPLASE, STAT CT HEAD, NEGATIVE FOR BLEED. BP ELEVATED 212/110, RECEIVING IV MEDICATIONS, UNABLE TO TOLERATE PO, FAILED NURSING SWALLOW SCREEN. SPOKE WITH DR FLORES AND HE IS RECOMMENDING MRI TO R/O NURSING HOME SOCIAL WORKER STROKE AND IF A STROKE IS IDENTIFIED ADD MRA. THIS WAS COMMUNICATED TO THE MRI STAFF. ALL OF THIS WAS EXPLAINED TO THE PATIENT AND THE FAMILY.
[2022-01-31 15:01] VITALS: BP 195/96; PULSE 66; RESP 18; O2SAT 99
[2022-01-31 15:03] LABS: Thyroid Stimulating Hormone 1.05 uIU/mL (0.32-4.0)
--- NOTE | 2022-01-31 15:10 | PC.NURSE ---
pt of to mri with chapo rn pt alert and oriented, skin appropriate for ethnicity, no visible facial droop, moving all extremities, no visible hand drift, hand grasp equal and strong, pt denies pain at this time but keeps reporting of feeling dizzy like room is spinning in circles ns on the monitor
[2022-01-31 15:12] VITALS: BP 184/93
--- NOTE | 2022-01-31 15:41 | ED_ITS ---
HPI - Dizziness General Chief Complaint: Dizziness Stated Complaint: fainted, vomiting Time Seen by Provider: 01/31/22 13:53 Source: patient and family (Daughter in Law Yolanda) Mode of arrival: wheelchair Limitations: language barrier (Croatian Speaking ) History of Present Illness HPI Narrative: 77-year-old female with a past medical history of hypertension, pulmonary embolism currently on warfarin INR checked upstairs 3.1 today, PVC GERD and rheumatoid arthritis presenting to the ED via wheelchair after she was in the laboratory upstairs here at [facility] having labs drawn that were ordered by her PCP and when she finished drawing her labs she did not feel well and immediately started to have nausea / vomiting and dizziness therefore she was brought here for further evaluation treatment. On arrival patient reports she is very nauseated and continues to vomit and she feels very dizzy. She reports that she feels as everyone in the room is spinning. She also reports generalized weakness. Daughter in-law at bedside Yolanda reports that she had COVID on December 19 and since then she has been not feeling well and having intermittent episodes of dizziness. otherwise daughter in-law reports that she was acting her normal self this morning she was able to walk into the laboratory to have her blood drawn. Daughter reports that she never fainted/passed out. Although she felt as she was going to faint/pass out. Patient denies any chest pain, shortness of breath, abdominal pain or any other symptoms or complaints at this time. 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) Timing: sudden onset Severity: severe Description: room spinning History of similar symptoms: No Relieving factors: nothing Associated symptoms: nausea, vomiting and weakness Related Data Home Medications Medication Instructions Recorded Confirmed albuterol sulfate 90 mcg/actuation 2 puff inhalation Q6H PRN Asthma 03/11/20 0 01/05/22 aerosol inhaler (ProAir HFA) enalapril maleate 20 mg tablet 20 mg PO DAILY 03/11/20 01/05/22 temazepam 30 mg capsule 30 mg PO BEDTIME PRN Insomnia 03/11/20 01/05/22 pantoprazole 40 mg tablet,delayed 40 mg PO DAILY 09/01/20 01/05/22 release duloxetine 60 mg capsule,delayed 60 mg PO DAILY 04/14/21 01/05/22 release lorazepam 0.5 mg tablet 0.5 mg PO DAILY PRN Anxiety 04/14/21 01/05/22 acetaminophen 500 mg tablet 1,000 mg PO Q6-8H PRN Pain 06/09/21 01/05/22 atorvastatin 20 mg tablet 20 mg PO BEDTIME 07/14/21 01/05/22 hydrochlorothiazide 12.5 mg tablet 12.5 mg PO DAILY 07/14/21 01/05/22 metoprolol succinate 50 mg 50 mg PO DAILY 07/14/21 01/05/22 tablet,extended release 24 hr multivitamin 1 tab PO DAILY 08/29/21 01/05/22 chlorhexidine gluconate 4 % topical 01/05/22 01/05/22 topical liquid (Antiseptic Skin Cleanser (chlorhexidine)) diclofenac sodium 1 % topical gel 1 ea topical QID 01/05/22 01/05/22 Previous Rx's Medication Instructions Recorded warfarin 3 mg tablet 3 mg PO DAILY #90 tabs 03/05/20 clotrimazole 1 % topical cream 3 appl topical Q OTHER DAY PRN 12/06/20 Rash #45 grams folic acid 1 mg tablet 1 mg PO DAILY #90 tabs 06/16/21 methotrexate sodium 2.5 mg tablet 10 mg PO QWEEK #48 tabs 12/05/21 sarilumab 150 mg/1.14 mL 150 mg (1.14 mL) subcut Q2W #2.28 12/30/21 subcutaneous pen injector (SunSun Lightingzara) mL Allergies Allergy/AdvReac Type Severity Reaction Status Date / Time Iodinated Contrast Media Allergy Intermediate SWELLING, Verified 01/31/22 11:30 [CONTRAST, IV] ITCHINESS, RASH Penicillins [PENICILLINS] Allergy Intermediate ITCHINESS, Verified 01/31/22 11:30 RASH, SWELLING latex Allergy Hives Verified 01/31/22 11:30 Sulfa (Sulfonamide Allergy Unknown Verified 01/31/22 11:30 Antibiotics) Review of Systems Review of Systems: Constitutional : No Fever, No Chills, No Night Sweats, No Fatigue, No Malaise ENT/Mouth : No Ear Pain, No Nasal Congestion, No Sinus Pain, No sore throat, No Rhinorrhea Eyes: No Eye Pain, No Swelling, No Redness, No Foreign Body, No Discharge, No Vision Changes Cardiovascular : No Chest Pain, No SOB, No Dyspnea on Exertion, No Orthopnea, No Palpitations Respiratory : No Cough, No Sputum, No Wheezing, No Dyspnea Gastrointestinal : + Nausea, + Vomiting, No Diarrhea, No Constipation, No abd ominal Pain, No Hematochezia, No Melena Genitourinary : No Dysuria, No Urinary Frequency, No Urinary Incontinence, No Urgency, No Flank Pain Musculoskeletal : No joint pain, No Myalgias Skin : No lacerations Neuro : + Dizziness, + General weakness, No Focal weakness, No Numbness, No Paresthesias, No Loss of Consciousness, No Headache Yes all other systems are reviewed and are negative [facility] Past Medical History Attestation statement: The following information was validated with the patient. Source: old records reviewed, obtained from family and nursing notes reviewed Medical History Leg edema Rheumatoid arthritis Surgical History History of appendectomy History of bariatric surgery History of cholecystectomy History of colonoscopy History of total abdominal hysterectomy and bilateral salpingo-oophorectomy Family History Family History Father Asthma Mother Rheumatoid arthritis Cardiovascular disease Social History Social History Household Members: Family Housing: House Alcohol intake: never Patient Tobacco Use Status: Never used Tobacco Use of substances other than those prescribed or required for medical reasons: No Advance Directives: No Advance Directives Information Provided: No Advance Directives Date on File: 03/17/20 Physical Exam Vital Signs: Vital Signs: Last Vital Signs Pulse 64 01/31/22 16:48 Resp 18 01/31/22 15:01 BP 130/82 01/31/22 16:48 Pulse Ox 99 01/31/22 15:01 O2 Del Method 01/31/22 15:01 BMI result Body Mass Index 31.2 Vital signs have been reviewed as normal and appeared to be correct. Blood pressure 212/110. Heart rate normal. Respiration rate normal. Temperature normal. Oxygen saturation normal. Appearance: Alert. Oriented X3. No acute distress. Head: Normal external exam. Normocephalic. Atraumatic. Able to rotate head bilaterally. Eyes: PERRLA. EOMI. patient noted to have horizontal nystagmus. Conjunctiva and sclera normal. Eyelids normal. Corneal reflex normal. ENT: EAC normal. TM's Normal. Hearing normal. Pharynx normal. Uvula midline. tongue midline. Moist mucous membranes. No trismus noted. No drooling noted. No muffled voice noted. No nystagmus noted. Neck: Normal inspection. Neck supple. FROM. No adenopathy. Trachea midline. Thyroid Normal. No meningeal signs. No neck mass noted. CVS: Normal heart rate and rhythm. Heart sound normal. No murmurs noted. Pulses normal throughout. Respiratory: No respiratory distress. Painless inspiration. Breath sounds normal. No wheezes/rales/rhonchi noted. Chest nontender. No accessory muscle usage noted or decreased air movement noted. Abdomen: Soft and nontender. Bowel sounds normal in all 4 quadrants. No distention noted. No organomegaly noted. No visible injury noted. Back: No CVA tenderness. Full range of motion noted. Skin: Skin warm and dry. Normal skin color. Normal skin turgor. No rashes/lesions/lacerations noted. Extremities: No lower extremity edema. Extremities exhibit normal range of motion. Extremities nontender. Able to shrug shoulders bilaterally and keep up against resistance. Neuro: Oriented X 3. Appears to have mild right sided facial. General weakness to all extremities no focal motor weakness/deficits noted. No sensory deficit. Reflexes normal. Moving all extremities. Cranial nerves II-XI intact bilate rally. Normal cognition. Speech normal. Strength 5/5 throughout. No pronator drift. No tremor noted. No fasciculations noted. No rigidity noted. Muscle tone normal throughout. No asterixis noted. [id number] test normal. Heel to perez test normal. Rapid alternating movement upper extremity normal. Rapid alternating movement lower extremity normal. Hand drop from overhead Misses face. NIHSS score 1 NIH Stroke Scale Internal: Initial- Upon Arrival Time: 13:55 Level of Consciousness: Alert Level of Consciousness Questions: Answers both questions correctly Level of Consciousness Commands: Performs both tasks correctly Best Gaze: Normal ( noted to have horizontal nystagmus bilaterally) Visual: No visual loss Facial Palsy: Minor paralyis Motor Arm (Right): No drift Motor Arm (Left): No drift Motor Leg (Right): No drift Motor Leg (Left): No drift Limb Ataxia: Absent Sensory: Normal Best Language: No aphasia Dysarthia: Normal Extinction and Inattention: No abnormality Score: 1 Course Course Course Narrative: 13:55pm 77-year-old female with a past medical history of hypertension, pulmonary embolism currently on warfarin INR checked upstairs 3.1 today, PVC GERD and rheumatoid arthritis presenting to the ED via wheelchair after she was in the laboratory upstairs here at [facility] having labs drawn that were ordered by her PCP and when she finished drawing her labs she did not feel well and immediately started to have nausea / vomiting and dizziness therefore she was brought here for further evaluation treatment. On arrival patient reports she is very nauseated and continues to vomit and she feels very dizzy. She reports that she feels as everyone in the room is spinning. She also reports generalized weakness. Daughter in-law at bedside Yolanda reports that she had COVID on December 19 and since then she has been not feeling well and having intermittent episodes of dizziness. otherwise daughter in-law reports that she was acting her normal self this morning she was able to walk into the laboratory to have her blood drawn. Daughter reports that she never fainted/passed out. Although she felt as she was going to faint/pass out. On exam patient is alert although reports she is very dizzy and she continues to have episodes of vomiting while on exam and noted to have horizontal nystagmus and generalized weakness to all 4 extremities although no focal motor deficit noted. She does have slight right facial droop. Otherwise no other neuro deficits noted. Gait not tested at this time. NIHSS score 1 at this time. Patient not a tPA candidate due to she is currently on warfarin and her INR is 3.1. Plan: Labs, CT scan of brain, chest x-ray, brain MRI, urine. Provide 20 mg of IV labetalol and 10 mg of IV Reglan And consult with Neurology and re- evaluate. Reevaluation(s) Reevaluation #1: - Labs reviewed an ESR 23. Carbon dioxide 20. Random glucose 147. Otherwise all other labs are within normal limits. CT scan of brain revealed chronic changes no acute processes and negative for acute bleed or stroke. - MRI of brain revealed chronic changes along with a right-sided mastoid effusion otherwise no other acute processes. - Therefore at this time will admit for possible seizure versus vertigo and patient required IV labetalol to lower her blood pressure. Time: 16:31 MDM - Dizziness Medical Records Attestation: I reviewed the patient's medical records. Lab Data Attestation: I reviewed the patient's lab results. Result diagrams: 01/31/22 14:20 01/31/22 14:20 Labs: Lab Results 01/31/22 01/31/22 01/31/22 Range/Units 14:20 14:20 14:20 WBC 6.7 (4.8-10.8) X10*3/uL RBC 5.16 (4.20-5.50) X10*6/uL Hgb 14.1 (12.0-16.0) g/dl Hct 44.6 (37.0-47.0) % MCV 86.4 (80.0-98.0) fL MCH 27.3 (27.0-33.0) pg MCHC 31.6 (31.0-35.0) g/dl RDW 14.7 (11.0-16.0) % Plt Count 320 (160-400) X10*3/uL MPV 10.1 (9.4-12.3) fL Immature Gran % (Auto) 0.1 (0.0-0.4) % Neut % (Auto) 62.8 (45-73) % Lymph % (Auto) 30.2 (20-40) % Letcher % (Auto) 6.7 (2-11) % Eos % (Auto) 0.1 (0-4) % Baso % (Auto) 0.1 (0-2) % Lymph # (Auto) 2.0 (1.2-4.9) X10*3/uL Letcher # (Auto) 0.5 (0.1-1.2) X10*3/uL Eos # (Auto) 0.0 (0.0-0.4) X10*3/uL Baso # (Auto) 0.0 (0.0-0.2) X10*3/uL Abs Immat Gran (auto) 0.01 (0.00-0.03) X10*3/uL Absolute Neuts (auto) 4.2 (2.0-8.3) x10*3/uL Absolute Nucleated RBC 0.000 (0.0-0.012) X10*3/uL Nucleated RBC % (auto) 0.0 (0.0-0.2) /100WBC PT 35.4 H (10.0-13.1) SEC INR 2.9 H (0.9-1.1) APTT 39.4 H (26.0-36.4) SEC Sodium 140 (135-145) mmol/L Potassium 4.0 (3.3-5.1) mmol/L Chloride 106 (96-108) mmol/L Carbon Dioxide 20 L (22-29) mmol/L Anion Gap 18 (12-20) BUN 16 (9-16) mg/dL Creatinine 0.90 (0.5-1.4) mg/dL Estim Creat Clear Calc 52.4 Estimated GFR > 60 Random Glucose 147 H (60-115) mg/dL Lactic Acid (0.5-2.0) mmol/L Calcium 9.3 (8.4-10.2) mg/dL Magnesium 2.4 (1.6-2.6) mg/dL Total Bilirubin 0.4 (0.0-1.0) mg/dL Direct Bilirubin 0.2 (0.0-0.5) mg/dL AST 23 (5-31) U/L ALT 14 (0-31) U/L Alkaline Phosphatase 88 D (39-117) U/L Total Creatine Kinase 101 (26-140) U/L Troponin I High Sens (<3.5-17.0) ng/L Total Protein 7.9 (6.5-8.0) g/dL Albumin 4.3 (3.5-5.0) g/dL TSH 1.05 (0.32-4.0) uIU/mL COVID-19 (KIKO) (Negative) COVID-19 Clin Com 01/31/22 01/31/22 01/31/22 Range/Units 14:20 14:21 16:50 WBC (4.8-10.8) X10*3/uL RBC (4.20-5.50) X10*6/uL Hgb (12.0-16.0) g/dl Hct (37.0-47.0) % MCV (80.0-98.0) fL MCH (27.0-33.0) pg MCHC (31.0-35.0) g/dl RDW (11.0-16.0) % Plt Count (160-400) X10*3/uL MPV (9.4-12.3) fL Immature Gran % (Auto) (0.0-0.4) % Neut % (Auto) (45-73) % Lymph % (Auto) (20-40) % Letcher % (Auto) (2-11) % Eos % (Auto) (0-4) % Baso % (Auto) (0-2) % Lymph # (Auto) (1.2-4.9) X10*3/uL Letcher # (Auto) (0.1-1.2) X10*3/uL Eos # (Auto) (0.0-0.4) X10*3/uL Baso # (Auto) (0.0-0.2) X10*3/uL Abs Immat Gran (auto) (0.00-0.03) X10*3/uL Absolute Neuts (auto) (2.0-8.3) x10*3/uL Absolute Nucleated RBC (0.0-0.012) X10*3/uL Nucleated RBC % (auto) (0.0-0.2) /100WBC PT (10.0-13.1) SEC INR (0.9-1.1) APTT (26.0-36.4) SEC Sodium (135-145) mmol/L Potassium (3.3-5.1) mmol/L Chloride (96-108) mmol/L Carbon Dioxide (22-29) mmol/L Anion Gap (12-20) BUN (9-16) mg/dL Creatinine (0.5-1.4) mg/dL Estim Creat Clear Calc Estimated GFR Random Glucose (60-115) mg/dL Lactic Acid 2.0 (0.5-2.0) mmol/L Calcium (8.4-10.2) mg/dL Magnesium (1.6-2.6) mg/dL Total Bilirubin (0.0-1.0) mg/dL Direct Bilirubin (0.0-0.5) mg/dL AST (5-31) U/L ALT (0-31) U/L Alkaline Phosphatase (39-117) U/L Total Creatine Kinase (26-140) U/L Troponin I High Sens < 3.5 (<3.5-17.0) ng/L Total Protein (6.5-8.0) g/dL Albumin (3.5-5.0) g/dL TSH (0.32-4.0) uIU/mL COVID-19 (KIKO) Negative (Negative) COVID-19 Clin Com See Note Imaging Data CT scan - head: Attestation: I personally reviewed and interpreted this imaging study as follows: Radiologist's impression: FINDINGS: There is no evidence of an extra-axial collection. There is no evidence of intra-axial or extra-axial hemorrhage. The ventricles and extra-axial CSF spaces are appropriate. There is mild nonspecific periventricular white matter disease. No mass, mass effect or infarct is seen. Evaluation of the skull base is limited due to motion artifact. No skull fracture is seen. Visualized paranasal sinuses, mastoid air cells and middle ears are clear. CT/CT head for stroke IMPRESSION: No acute findings. Mild nonspecific periventricular white matter disease. ? This critical result was discussed with Ivy Wilkerson at 1415 hours on 01/31/2022. It was ascertained that the content and urgency of the report was understood at the time of direct communication. MRI of brain without contrast: Attestation: I personally reviewed and interpreted this imaging study as follows: Radiologist's impression: FINDINGS: No focal restricted diffusion is demonstrated to suggest acute or subacute cerebral ischemia. No evidence of acute or chronic hemorrhagic products on heme-sensitive imaging. Chronic mineralization of the basal ganglia and left dentate nucleus. Scattered periventricular, deep white matter, and brainstem T2 FLAIR hyperintensities consistent with moderate underlying microangiopathy. Proportional prominence of the ventricles and sulcal spaces without evidence of obstructive hydrocephalus. No abnormal mass effect. No midline shift. The sella turcica is mildly expanded with partial flattening of the pituitary gland. Normal positioning of the cerebellar tonsils. Normal arterial and venous vascular flow voids are present. Normal, homogeneous marrow signal. Moderate degenerative spondyloarthropathy of the visualized upper cervical spine. Mild mucosal thickening of the paranasal sinuses. Small right-sided mastoid effusion. No signal abnormalities within the left-sided mastoid. Bilateral lens extractions. MR/MR head/brain wo con IMPRESSION: 1. No acute intracranial abnormalities. 2. Moderate underlying microangiopathy and generalized cerebral volume loss. 3. Small right-sided mastoid effusion. ECG Data Attestation: I personally reviewed and interpreted this ECG as follows: ECG interpretation date: 01/31/22 ECG interpretation time: 14:22 Prior ECG tracings: available for review Interpretation: normal sinus rhythm with ventricular rate of 75 with a normal FL interval normal QRS duration normal QT/ QTC interval no acute ischemic change are noted. Critical Care Time Critical Care Time Critical Care Time: Yes Total Critical Care Time: 60 Attestation: I personally attest to this time spent taking care of the patient Discharge Plan Discharge Clinical Impression: Hypertensive emergency, Dizziness, Nausea & vomiting Patient Disposition: Admitted As Inpatient
[2022-01-31 16:48] VITALS: BP 130/82; PULSE 64
[2022-01-31] MEDS: Meclizine HCl 25 MG TABLET 50 MG PO (16:48)
[2022-01-31 17:12] LABS: COVID-19 Test Negative (Negative)
--- NOTE | 2022-01-31 18:05 | PHA.MEDREC ---
Pharmacy Consult ? Medication Reconciliation Pharmacy has completed the medication reconciliation. Spoke with patient and family members in ED1. Pt took am medications but not evening meds. Methotrexate taken on Sunday. Has not received Kevzara since october since testing positive for covid for multiple months.
--- NOTE | 2022-01-31 19:51 | P.HPHOSP_ITS ---
History of Present Illness Date of Service: 01/31/22 Attending physician on admission: Koko Hearn Chief Complaint: dizziness 77y/o F past medical hx of RA,hypertension, pulmonary embolism currently on warfarin INR checked upstairs 3.1 today, PVC GERD and? rheumatoid arthritis presenting to the ED via wheelchair after she was in the laboratory upstairs here at [facility] having labs drawn that were ordered by her PCP and when she finished drawing her labs she did not feel well? and immediately started to have nausea / vomiting and dizziness therefore she was brought here for further evaluation . ?Daughter in-law at bedside Yolanda reports that she had COVID on December 19 and since then she has been not feeling well and having intermittent episodes of dizziness.? otherwise daughter in-law reports that she was acting her normal self this morning she was able to walk into the laboratory to have her blood drawn. patient family at bedside denies any syncopal episode or seizure. patient denies any chest pain or shortness of breath or abdominal pain or cough or fever or chills or any blurry vision patient has vaccinated for [employer] vaccinex3. Review of Systems Review of Systems: as above. Yes all other systems are reviewed and are negative [facility] Medical History Leg edema Rheumatoid arthritis Family History Father Asthma Mother Rheumatoid arthritis Cardiovascular disease Surgical History History of appendectomy History of bariatric surgery History of cholecystectomy History of colonoscopy History of total abdominal hysterectomy and bilateral salpingo-oophorectomy Social History Household Members: Family Housing: House Alcohol intake: never Patient Tobacco Use Status: Never used Tobacco Use of substances other than those prescribed or required for medical reasons: No Advance Directives: No Advance Directives Information Provided: No Advance Directives Date on File: 03/17/20 Meds Allergies Allergy/AdvReac Type Severity Reaction Status Date / Time Iodinated Contrast Media Allergy Intermediate SWELLING, Verified 01/31/22 11:30 [CONTRAST, IV] ITCHINESS, RASH Penicillins [PENICILLINS] Allergy Intermediate ITCHINESS, Verified 01/31/22 11:30 RASH, SWELLING latex Allergy Hives Verified 01/31/22 11:30 Sulfa (Sulfonamide Allergy Unknown Verified 01/31/22 11:30 Antibiotics) Active Medications: Current Medications Albuterol Sulfate (Albuterol Sulfate 90 Mcg 8 Gm Inhaler) 2 puff INHALE Q4H PRN PRN Reason: Asthma Atorvastatin Calcium (Atorvastatin Calcium 20 Mg Tablet) 20 mg PO BEDTIME [facility] Clotrimazole (Clotrimazole 1 % Cream 15 Gm Tube) 1 appl TOPICAL DAILY PRN; Protocol PRN Reason: Rash Duloxetine HCl (Duloxetine Hcl 60 Mg Capsule.Dr) 60 mg PO DAILY YONAS Enalapril Maleate (Enalapril Maleate 10 Mg Tablet) 20 mg PO BID YONAS; Protocol Folic Acid (Folic Acid 1 Mg Tablet) 1 mg PO DAILY [facility] Hydralazine HCl (Hydralazine Hcl 20 Mg/Ml Vial) 5 mg IVPUSH Q6H PRN; Protocol PRN Reason: htn Hydrochlorothiazide (Hydrochlorothiazide 12.5 Mg Tablet) 12.5 mg PO DAILY YONAS; Protocol Meclizine HCl (Meclizine Hcl 12.5 Mg Tablet) 12.5 mg PO Q6H PRN PRN Reason: dizziness Methotrexate (Methotrexate Sodium 2.5 Mg Tablet) 10 mg PO FR@0900 [facility] Metoprolol Succinate (Metoprolol Succinate Er 50 Mg Tab.Er.24h) 50 mg PO DAILY YONAS; Protocol Multivitamins/Vitamin C (Multivitamin Tablet) 1 tab PO DAILY [facility] Non-Formulary Medication (Calcium Carbonate [Calcium 600]) 600 mg PO DAILY [facility] Non-Formulary Medication (Pantoprazole) 40 mg PO DAILY@0630 [facility] Non-Formulary Medication (Sarilumab [Kevzara]) 150 mg SUBCUT Q2W [facility] Non-Formulary Medication (Vit C,Q-Ul-Auvuv-Lutein-Zeaxan [Preservision Areds-2]) 1 tab PO BID [facility] Ondansetron HCl (Ondansetron Hcl 4 Mg/2 Ml Vial) 4 mg IVPUSH Q4H PRN PRN Reason: Nausea Pharmacy Consult (Consult Rx Perform Med Rec) 1 each MISCELLANE ONCE PRN PRN Reason: Consult order Sodium Chloride (0.9 % Sodium Chloride Flush 3 Ml Syringe) 3 ml IVFLUSH QSHIFT [facility] Warfarin Sodium (Warfarin Sodium 3 Mg Tablet) 3 mg PO SUTUTHSA@1800 [facility] Warfarin Sodium (Warfarin Sodium 6 Mg Tablet) 6 mg PO MOWEFR@1800 [facility] Home Medications Medication Instructions Recorded Confirmed Last Taken Type albuterol sulfate 90 mcg/actuation 2 puff inhalation Q4H PRN Asthma 03/11/20 01/31/22 Unknown History aerosol inhaler (ProAir HFA) enalapril maleate 20 mg tablet 20 mg PO BID 03/11/20 01/31/22 01/31/22 History temazepam 30 mg capsule 30 mg PO BEDTIME PRN Insomnia 03/11/20 01/31/22 Unknown History pantoprazole 40 mg tablet,delayed 40 mg PO DAILY@62909/01/20 01/31/22 01/31/22 History release duloxetine 60 mg capsule,delayed 60 mg PO DAILY 04/14/21 01/31/22 01/31/22 History release lorazepam 0.5 mg tablet 0.5 mg PO DAILY PRN Anxiety 04/14/21 01/31/22 Unknown History atorvastatin 20 mg tablet 20 mg PO BEDTIME 07/14/21 01/31/22 01/30/22 History hydrochlorothiazide 12.5 mg tablet 12.5 mg PO DAILY 07/14/21 01/31/22 01/31/22 History metoprolol succinate 50 mg 50 mg PO DAILY 07/14/21 01/31/22 01/31/22 History tablet,extended release 24 hr multivitamin 1 tab PO DAILY 08/29/21 01/31/22 01/31/22 History diclofenac sodium 1 % topical gel 4 g topical BID 01/05/22 01/31/22 01/31/22 History calcium carbonate 600 mg calcium 600 mg PO DAILY 01/31/22 01/31/22 01/31/22 History (1,500 mg) tablet (Calcium) clotrimazole 1 % topical cream 1 appl topical DAILY PRN Rash 01/31/22 01/31/22 01/31/22 History methotrexate sodium 2.5 mg tablet 10 mg PO FR@89901/31/22 01/31/22 01/27/22 History vit C 250 mg-vit E 90 mg-zinc 40 1 tab PO BID 01/31/22 01/31/22 01/31/22 History mg-copper 1 [id number] capsule (PreserVision AREDS-2) warfarin 3 mg tablet 3 mg PO SUTUTHSA@1800 01/31/22 01/31/22 01/29/22 History warfarin 3 mg tablet 6 mg PO MOWEFR@1800 01/31/22 01/31/22 01/30/22 History Physical Exam Vital Signs and Narrative: Vital Signs: Last Vital Signs Pulse 64 01/31/22 16:48 Resp 18 01/31/22 15:01 BP 130/82 01/31/22 16:48 Pulse Ox 99 01/31/22 15:01 O2 Del Method 01/31/22 15:01 BMI result Body Mass Index 31.2 Appearance: Alert.? Oriented X3.? not in distress.? Eyes: Pupils equal, round and reactive to light.? Sclera nonicteric.? ENT: Pharynx normal.? Moist mucous membranes. cvs: rrr, [id number]. res: clear to auscultation ,no rhonchii or wheezing abd: no rebound or guarding ,nt, bs present. ext pulses present , no cyanosis . neuro: axo3 , nonfocal. Results Labs CBC and Chem 7: 01/31/22 14:20 01/31/22 14:20 Labs: Laboratory Results - last 24 hr 01/31/22 01/31/22 01/31/22 14:20 14:20 14:20 MCV 86.4 MCH 27.3 MCHC 31.6 RDW 14.7 Plt Count 320 MPV 10.1 Immature Gran % (Auto) 0.1 Neut % (Auto) 62.8 Lymph % (Auto) 30.2 [place] % (Auto) 6.7 Eos % (Auto) 0.1 Baso % (Auto) 0.1 Lymph # (Auto) 2.0 [place] # (Auto) 0.5 Eos # (Auto) 0.0 Baso # (Auto) 0.0 Abs Immat Gran (auto) 0.01 Absolute Neuts (auto) 4.2 Absolute Nucleated RBC 0.000 Nucleated RBC % (auto) 0.0 PT 35.4 H INR 2.9 H APTT 39.4 H Anion Gap 18 Estim Creat Clear Calc 52.4 Estimated GFR > 60 Random Glucose 147 H Lactic Acid Calcium 9.3 Magnesium 2.4 Total Bilirubin 0.4 Direct Bilirubin 0.2 AST 23 ALT 14 Alkaline Phosphatase 88 D Total Creatine Kinase 101 Total Protein 7.9 Albumin 4.3 TSH 1.05 COVID-19 (KIKO) COVID-19 Clin Com 01/31/22 01/31/22 14:20 16:50 MCV MCH MCHC RDW Plt Count MPV Immature Gran % (Auto) Neut % (Auto) Lymph % (Auto) [place] % (Auto) Eos % (Auto) Baso % (Auto) Lymph # (Auto) [place] # (Auto) Eos # (Auto) Baso # (Auto) Abs Immat Gran (auto) Absolute Neuts (auto) Absolute Nucleated RBC Nucleated RBC % (auto) PT INR APTT Anion Gap Estim Creat Clear Calc Estimated GFR Random Glucose Lactic Acid 2.0 Calcium Magnesium Total Bilirubin Direct Bilirubin AST ALT Alkaline Phosphatase Total Creatine Kinase Total Protein Albumin TSH COVID-19 (KIKO) Negative COVID-19 Clin Com See Note Imaging Radiologist's Impressions: Impressions Brain MRI 01/31/22 13:54 IMPRESSION: 1. No acute intracranial abnormalities. 2. Moderate underlying microangiopathy and generalized cerebral volume loss. 3. Small right-sided mastoid effusion. Head CT 01/31/22 14:09 IMPRESSION: No acute findings. Mild nonspecific periventricular white matter disease. This critical result was discussed with Ivy Wilkerson at 1415 hours on 01/31/2022. It was ascertained that the content and urgency of the report was understood at the time of direct communication. Assessment and Plan (1) Hypertensive urgency: Status: Acute (2) Dizziness: Status: Acute (3) Nausea & vomiting: Status: Acute (4) Vertigo: Status: Acute Plan 77y/o F past medical hx hypertension, pulmonary embolism currently on warfarin INR checked upstairs 3.1 today, PVC GERD and? rheumatoid arthritis: 1. dizziness vs vertigo: possible differential diagnosis could be uncontrolled hypertension, BPPV versus vestibular neuritis. added meclizine supportive care MRI and CT head seems to be fine. neuro evaluation 2. hypertension urgency: moniter on tele given labetalol blood pressure is improving to 130 range continue home medications, IV hydralazine added for backup if blood pressure stays above 160 persistently than may use IV hydralazine p.r.n.. 3. Asthma: stable, continue home meds. 4. rheumatoid arthritis:: Continue medications. 5. History of pulmonary embolism and DVTs: continue warfarin INR is 2.9 6. of note: Patient is Jainism: refuses blood products. above management discussed with the patient in detail length she understand and in agreement with the above plan, time spent 70 minute, question to full code. Healthcare proxy is patient daughter Becky - phone #[phone]. Quality Stroke Does the patient have a stroke diagnosis?: No VTE Prior VTE?: No VTE Risk Level:: Medical - moderate - high VTE Device Contraindication: N/A - Device Ordered VTE Drug Contraindication: N/A - Med Ordered
--- NOTE | 2022-01-31 22:37 | PC.NURSE ---
Assumed care of pt. at 1900. Pt. didn't get any dinner and is hungry. Will provide a sandwich. Pt. refused her night time atorvastatin as she reports not taking it at home as she says it makes her ankle swell. She says she will be speaking to the doctor about this. Pt. also requesting her night time med of temazepam. will follow up with the hospitalist for this med. Pt. is resting comfortably in bed at this time.
[2022-01-31] MEDS: Temazepam 15 MG CAPSULE 30 MG PO (23:43)
[2022-01-31] MEDS: Enalapril Maleate 10 MG TABLET 20 MG PO (23:43)
[2022-02-01] VITALS (10 sets, daily range): BP systolic 123–173; BP diastolic 55–83; PULSE 61–89; RESP 12–19; TEMP 36.7–37.1; O2SAT 96–99
[2022-02-01 04:59] LABS: INTERNATIONAL NORM RATIO 3.2 (0.9-1.1); Prothrombin Time 38.1 SEC (10.0-13.1)
[2022-02-01 05:40] LABS: Appearance Urine Clear; Color Urine Yellow; Glucose Urine UA Negative (Negative); Leukocyte Esterase Urine Negative (Negative); Nitrite Urine Negative (Negative); Urine Blood Negative (Negative); Urine Ketones Negative (Negative); Urine Protein Negative (Neg-Trace)
[2022-02-01] MEDS: Metoprolol Succinate ER 50 MG TAB.ER.24H PO (07:29)
[2022-02-01] MEDS: DULoxetine HCl 60 MG CAPSULE.DR PO (07:29)
[2022-02-01] MEDS: Folic Acid 1 MG TABLET PO (07:29)
[2022-02-01] MEDS: Multivitamin TABLET 1 TAB PO (07:29)
[2022-02-01] MEDS: Omeprazole 20 MG CAPSULE.DR PO (07:29)
[2022-02-01] MEDS: hydroCHLOROthiazide 12.5 MG TABLET PO (07:29)
[2022-02-01] MEDS: 0.9 % Sodium Chloride Flush 3 ML SYRINGE IVFLUSH ×2 (07:30→17:22)
[2022-02-01 07:36] LABS: Glucose, Whole Blood 112 mg/dL (60-115)
[2022-02-01] MEDS: Enalapril Maleate 10 MG TABLET 20 MG PO ×2 (08:12→22:17)
--- NOTE | 2022-02-01 09:22 | MHC.CM.PN ---
CM spoke with Daughter/HCP/Becky @ [phone] and addressed [facility] with her(original to be mailed to Becky and a copy to be placed on the chart). OT is recommending STR; Becky explains that Patient and family want Patient to return home with continued family support, [employer] and new VNA(with [facility]'s approval). CM has initiated and will follow for possible need to adjust the dc plan. PCP is Dr. Restrepo and Patient has received [employer] vax X3.
--- NOTE | 2022-02-01 15:19 | P.PNIM_ITS ---
Subjective Subjective Date of Service: 02/01/22 Interval History: dizziness and vertigo Review of Systems patient still feel significant easy even with sitting but feeling better than yesterday denies any chest pain or shortness of breath or abdominal pain or fever chills. Physical Exam Vital Signs: Vital Signs: Last Vital Signs Temp 98.6 F 02/01/22 13:40 Pulse 62 02/01/22 13:40 Resp 12 02/01/22 13:40 BP 164/72 H 02/01/22 13:40 Pulse Ox 99 02/01/22 13:40 O2 Del Method 02/01/22 13:40 BMI result Body Mass Index 31.2 ?Appearance: Alert.? Oriented X3.? not in distress.. cvs: rrr, [id number]. res: clear to auscultation ,no rhonchii or wheezing abd: no rebound or guarding ,nt, bs present. ext pulses present , no cyanosis . neuro: axo3 , nonfocal, dizziness. Objective Data Active Medications Albuterol Sulfate (Albuterol Sulfate 90 Mcg 8 Gm Inhaler) 2 puff INHALE Q4H PRN PRN Reason: Asthma Atorvastatin Calcium (Atorvastatin Calcium 20 Mg Tablet) 20 mg PO BEDTIME [facility] Last Admin: 01/31/22 22:31 Dose: Not Given Documented By: ANDRZEJ Non-Admin Reason: Patient Refused Calcium Carbonate (Calcium Carbonate 500 Mg Tablet) 500 mg PO DAILY [facility] Last Admin: 02/01/22 08:12 Dose: 500 mg Documented By: HILARIA Clotrimazole (Clotrimazole 1 % Cream 15 Gm Tube) 1 appl TOPICAL DAILY PRN; Protocol PRN Reason: Rash Duloxetine HCl (Duloxetine Hcl 60 Mg Capsule.Dr) 60 mg PO DAILY [facility] Last Admin: 02/01/22 07:29 Dose: 60 mg Documented By: HILARIA Enalapril Maleate (Enalapril Maleate 10 Mg Tablet) 20 mg PO BID [facility]; Protocol Last Admin: 02/01/22 08:12 Dose: 20 mg Documented By: HILARIA Folic Acid (Folic Acid 1 Mg Tablet) 1 mg PO DAILY [facility] Last Admin: 02/01/22 07:29 Dose: 1 mg Documented By: HILARIA Hydralazine HCl (Hydralazine Hcl 20 Mg/Ml Vial) 5 mg IVPUSH Q6H PRN; Protocol PRN Reason: htn Hydrochlorothiazide (Hydrochlorothiazide 12.5 Mg Tablet) 12.5 mg PO DAILY [facility]; Protocol Last Admin: 02/01/22 07:29 Dose: 12.5 mg Documented By: HILARIA Meclizine HCl (Meclizine Hcl 12.5 Mg Tablet) 12.5 mg PO Q6H PRN PRN Reason: dizziness Methotrexate (Methotrexate Sodium 2.5 Mg Tablet) 10 mg PO FR@0900 [facility] Metoprolol Succinate (Metoprolol Succinate Er 50 Mg Tab.Er.24h) 50 mg PO DAILY [facility]; Protocol Last Admin: 02/01/22 07:29 Dose: 50 mg Documented By: HILARIA Multivitamins/Vitamin C (Multivitamin Tablet) 1 tab PO DAILY [facility] Last Admin: 02/01/22 07:29 Dose: 1 tab Documented By: HILARIA Omeprazole (Omeprazole 20 Mg Capsule.Dr) 20 mg PO DAILY@0630 [facility] Last Admin: 02/01/22 07:29 Dose: 20 mg Documented By: HILARIA Ondansetron HCl (Ondansetron Hcl 4 Mg/2 Ml Vial) 4 mg IVPUSH Q4H PRN PRN Reason: Nausea Pharmacy Consult (Consult Rx Perform Med Rec) 1 each MISCELLANE ONCE PRN PRN Reason: Consult order Sodium Chloride (0.9 % Sodium Chloride Flush 3 Ml Syringe) 3 ml IVFLUSH QSHIFT [facility] Last Admin: 02/01/22 07:30 Dose: 3 ml Documented By: HILARIA Temazepam (Temazepam 15 Mg Capsule) 30 mg PO BEDTIME PRN PRN Reason: Insomnia Last Admin: 01/31/22 23:43 Dose: 30 mg Documented By: ANDRZEJ Warfarin Sodium (Warfarin Sodium 3 Mg Tablet) 3 mg PO SUTUTHSA@1800 [facility] Warfarin Sodium (Warfarin Sodium 6 Mg Tablet) 6 mg PO MOWEFR@1800 [facility] Labs CBC & Chem 7: 01/31/22 14:20 01/31/22 14:20 Labs: Laboratory Results - last 24 hr 01/31/22 02/01/22 02/01/22 16:50 04:45 04:51 PT 38.1 H INR 3.2 H POC Glucose Urine Color Yellow Urine Appearance Clear Urine pH 6.0 Ur Specific [place] 1.020 Urine Protein Negative Urine Glucose (UA) Negative Urine Ketones Negative Urine Blood Negative Urine Nitrite Negative Ur Leukocyte Esterase Negative COVID-19 (KIKO) Negative COVID-19 Clin Com See Note 02/01/22 07:03 PT INR POC Glucose 112 Urine Color Urine Appearance Urine pH Ur Specific [place] Urine Protein Urine Glucose (UA) Urine Ketones Urine Blood Urine Nitrite Ur Leukocyte Esterase COVID-19 (KIKO) COVID-19 Clin Com Assessment and Plan (1) Vertigo: Status: Acute (2) Hypertensive urgency: Status: Acute Plan 77y/o F past medical hx hypertension, pulmonary embolism currently on warfarin INR checked upstairs 3.1 today, PVC GERD and? rheumatoid arthritis: 1. dizziness vs vertigo: ?possible differential diagnosis could be uncontrolled hypertension, BPPV versus vestibular neuritis. ?still dizziness with even sitting continue meclizine ?supportive care ?MRI and CT head seems to be fine. ?neuro evaluation OT/pt eval 2. hypertension:bp improving but suboptimal moniter on tele ?continue home medications-hctz/enalopril/metoprolol. will add amlodipine if persistently suboptimal. 3.? Asthma: stable, ?continue home meds. 4. rheumatoid arthritis:: ? Continue medications. 5. ? History of pulmonary embolism and DVTs: ?continue? warfarin INR is 3.2 ,hold warfrain for today 6.? of note:? Patient is [employer]:? refuses blood products. need for inpatient: [facility] - symptomatic , htn urgency, needs monitering Quality Stroke Does the patient have a stroke diagnosis?: No VTE Prior VTE?: No VTE Risk Level:: Medical - moderate - high VTE Device Contraindication: N/A - Device Ordered VTE Drug Contraindication: N/A - Med Ordered
[2022-02-01] MEDS: Temazepam 15 MG CAPSULE 30 MG PO (22:11)
[2022-02-02] VITALS (9 sets, daily range): BP systolic 127–156; BP diastolic 65–84; PULSE 54–90; RESP 15–18; TEMP 36.4–37.1; O2SAT 97–99
--- NOTE | 2022-02-02 | ECG_ITS ---
Test Reason : chest discomfort Blood Pressure : / mmHG Vent. Rate : 065 BPM Atrial Rate : 065 BPM P-R Int : 126 ms QRS Dur : 074 ms QT Int : 426 ms P-R-T Axes : 033 -10 005 degrees QTc Int : 443 ms Normal sinus rhythm Inferior infarct , age undetermined Abnormal ECG When compared with ECG of 31-JAN-2022 14:22, No significant change was found Referred By: Koko Hearn Electronically Signed By:VANESSA WAYNE
[2022-02-02] MEDS: Acetaminophen 325 MG TABLET 650 MG PO ×2 (05:06→20:25)
[2022-02-02] MEDS: 0.9 % Sodium Chloride Flush 3 ML SYRINGE IVFLUSH ×4 (05:08→20:25)
[2022-02-02] MEDS: Omeprazole 20 MG CAPSULE.DR PO (05:35)
[2022-02-02 06:53] LABS: INTERNATIONAL NORM RATIO 2.3 (0.9-1.1); Prothrombin Time 27.6 SEC (10.0-13.1)
[2022-02-02] MEDS: Metoprolol Succinate ER 50 MG TAB.ER.24H PO (10:10)
[2022-02-02] MEDS: hydroCHLOROthiazide 12.5 MG TABLET PO (10:11)
[2022-02-02] MEDS: Multivitamin TABLET 1 TAB PO (10:11)
[2022-02-02] MEDS: Folic Acid 1 MG TABLET PO (10:11)
[2022-02-02] MEDS: DULoxetine HCl 60 MG CAPSULE.DR PO (10:11)
[2022-02-02] MEDS: Enalapril Maleate 10 MG TABLET 20 MG PO ×2 (10:11→20:24)
[2022-02-02 11:19] LABS: Hemoglobin 13.4 g/dl (12.0-16.0); Mean Corpuscular HGB Conc 31.2 g/dl (31.0-35.0); Mean Corpuscular Volume 86.7 fL (80.0-98.0); Mean Platelet Volume 10.8 fL (9.4-12.3); Platelet Count 278 X10*3/uL (160-400); Red Blood Count 4.96 X10*6/uL (4.20-5.50); Red Cell Distribution Width 14.8 % (11.0-16.0); White Blood Count 5.4 X10*3/uL (4.8-10.8)
[2022-02-02 11:26] LABS: Anion Gap 14 (12-20); Blood Urea Nitrogen 15 mg/dL (9-16); Calcium 9.1 mg/dL (8.4-10.2); Carbon Dioxide 26 mmol/L (22-29); Chloride 104 mmol/L (96-108); Creatinine Clr Calc Pharmacy 57.5; Estimated Glomerular Filt Rate > 60; Glucose Random 138 mg/dL (60-115); Potassium 4.4 mmol/L (3.3-5.1); Sodium 140 mmol/L (135-145)
[2022-02-02 11:40] LABS: Troponin-I High Sensitivity < 3.5 ng/L (<3.5-17.0)
[2022-02-02] MEDS: Lactated Ringers 1,000 ML 100 ML IVCONT ×2 (12:56→23:35)
[2022-02-02] MEDS: Pantoprazole Sodium 40 MG/10 ML VIAL IVPUSH ×2 (12:56→17:45)
[2022-02-02] MEDS: ondansetron HCL 4 MG/2 ML VIAL IVPUSH (12:56)
--- NOTE | 2022-02-02 14:34 | P.PNIM_ITS ---
Subjective Subjective Date of Service: 02/02/22 Interval History: dizziness , epigastric /left sided abd discomfort Physical Exam Vital Signs: Vital Signs: Last Vital Signs Temp 98.7 F 02/02/22 11:34 Pulse 90 02/02/22 12:02 Resp 18 02/02/22 11:34 BP 127/84 02/02/22 12:02 Pulse Ox 98 02/02/22 11:34 O2 Del Method 02/02/22 11:34 BMI result Body Mass Index 31.2 Appearance: Alert.? Oriented X3.? not in distress.. cvs: rrr, [id number]. res: clear to auscultation ,no rhonchii or wheezing abd: no rebound or guarding ,epigastric/left sided abd pain, bs present. ext pulses present , no cyanosis . neuro: axo3 , nonfocal, dizziness. Objective Data Active Medications Acetaminophen (Acetaminophen 325 Mg Tablet) 650 mg PO Q8H PRN PRN Reason: Pain, Moderate (Pain Scale 4-6 Last Admin: 02/02/22 05:06 Dose: 650 mg Documented By: JUNAID Albuterol Sulfate (Albuterol Sulfate 90 Mcg 8 Gm Inhaler) 2 puff INHALE Q4H PRN PRN Reason: Asthma Atorvastatin Calcium (Atorvastatin Calcium 20 Mg Tablet) 20 mg PO BEDTIME [facility] Last Admin: 02/01/22 22:18 Dose: Not Given Documented By: JUNAID Non-Admin Reason: Patient Refused Calcium Carbonate (Calcium Carbonate 500 Mg Tablet) 500 mg PO DAILY [facility] Last Admin: 02/02/22 10:11 Dose: 500 mg Documented By: FRANTZ Capsaicin (Capsaicin 0.025% Cream 60 Gm Tube) 1 appl TOPICAL QID PRN; Protocol PRN Reason: epigastric pain Clotrimazole (Clotrimazole 1 % Cream 15 Gm Tube) 1 appl TOPICAL DAILY PRN; Protocol PRN Reason: Rash Duloxetine HCl (Duloxetine Hcl 60 Mg Capsule.) 60 mg PO DAILY [facility] Last Admin: 02/02/22 10:11 Dose: 60 mg Documented By: FRANTZ Enalapril Maleate (Enalapril Maleate 10 Mg Tablet) 20 mg PO BID [facility]; Protocol Last Admin: 02/02/22 10:11 Dose: 20 mg Documented By: FRANTZ Folic Acid (Folic Acid 1 Mg Tablet) 1 mg PO DAILY [facility] Last Admin: 02/02/22 10:11 Dose: 1 mg Documented By: FRANTZ Hydralazine HCl (Hydralazine Hcl 20 Mg/Ml Vial) 5 mg IVPUSH Q6H PRN; Protocol PRN Reason: htn Hydrochlorothiazide (Hydrochlorothiazide 12.5 Mg Tablet) 12.5 mg PO DAILY [facility]; Protocol Last Admin: 02/02/22 10:11 Dose: 12.5 mg Documented By: FRANTZ Hydromorphone HCl (Hydromorphone Hcl 0.5 Mg/0.5 Ml Syringe) 0.5 mg IVPUSH Q4H PRN; Protocol PRN Reason: Pain, Mild (Pain Scale 1-3) Lactated Ringer's (Lr) 1,000 mls @ 100 mls/hr IVCONT .Q10H [facility] Last Admin: 02/02/22 12:56 Dose: 100 mls/hr Documented By: FRANTZ Meclizine HCl (Meclizine Hcl 12.5 Mg Tablet) 12.5 mg PO Q6H PRN PRN Reason: dizziness Methotrexate (Methotrexate Sodium 2.5 Mg Tablet) 10 mg PO FR@0900 [facility] Metoprolol Succinate (Metoprolol Succinate Er 50 Mg Tab.Er.24h) 50 mg PO DAILY [facility]; Protocol Last Admin: 02/02/22 10:10 Dose: 50 mg Documented By: FRANTZ Multivitamins/Vitamin C (Multivitamin Tablet) 1 tab PO DAILY [facility] Last Admin: 02/02/22 10:11 Dose: 1 tab Documented By: FRANTZ Ondansetron HCl (Ondansetron Hcl 4 Mg/2 Ml Vial) 4 mg IVPUSH Q4H PRN PRN Reason: Nausea Last Admin: 02/02/22 12:56 Dose: 4 mg Documented By: FRANTZ Pantoprazole Sodium (Pantoprazole Sodium 40 Mg/10 Ml Vial) 40 mg IVPUSH BID@0630,1630 [facility] Last Admin: 02/02/22 12:56 Dose: 40 mg Documented By: FRANTZ Pharmacy Consult (Consult Rx Perform Med Rec) 1 each MISCELLANE ONCE PRN PRN Reason: Consult order Sodium Chloride (0.9 % Sodium Chloride Flush 3 Ml Syringe) 3 ml IVFLUSH QSHIFT [facility] Last Admin: 02/02/22 10:10 Dose: 3 ml Documented By: FRANTZ Temazepam (Temazepam 15 Mg Capsule) 30 mg PO BEDTIME PRN PRN Reason: Insomnia Last Admin: 02/01/22 22:11 Dose: 30 mg Documented By: JUNAID Warfarin Sodium (Warfarin Sodium 3 Mg Tablet) 3 mg PO SUTUTHSA@1800 [facility] Warfarin Sodium (Warfarin Sodium 6 Mg Tablet) 6 mg PO MOWEFR@1800 [facility] Labs CBC & Chem 7: 02/02/22 11:00 02/02/22 11:00 Labs: Laboratory Results - last 24 hr 02/02/22 02/02/22 02/02/22 06:00 11:00 11:00 MCV 86.7 MCH 27.0 MCHC 31.2 RDW 14.8 Plt Count 278 MPV 10.8 Absolute Nucleated RBC 0.000 Nucleated RBC % (auto) 0.0 PT 27.6 H INR 2.3 H Anion Gap 14 Estim Creat Clear Calc 57.5 Estimated GFR > 60 Random Glucose 138 H Calcium 9.1 Assessment and Plan (1) Vertigo: Status: Acute (2) Nausea & vomiting: Status: Acute (3) Abdominal pain: Status: Acute Plan 77y/o F past medical hx hypertension, pulmonary embolism currently on warfarin INR checked upstairs 3.1 today, PVC GERD and? rheumatoid arthritis: 1. dizziness vs vertigo: ?possible differential diagnosis could be uncontrolled hypertension, BPPV versus vestibular neuritis. ?still dizziness with even sitting continue meclizine ?supportive care ?MRI and CT head seems to be fine. ?neuro evaluation pending OT/pt eval-str. 2. hypertension:bp improving but suboptimal moniter on tele ?continue home medications-hctz/enalopril/metoprolol. will add amlodipine if persistently suboptimal. 3.? Asthma: stable, ?continue home meds. 4. rheumatoid arthritis:: ? Continue medications. 5. ? History of pulmonary embolism and DVTs: ?continue? warfarin INR is 2.3 ,resume warfrain for today 6.? of note:? Patient is Hindu:? refuses blood products. 7. abd pain: ? related to nausea/vomitin added ct abd po contrast no diarrahe or fevers or leucocytosis ppi,zofran,pain managemnet with dilaudid need for inpatient: [facility] - symptomatic ,needs monitering, abd pain workup and iv pain meds. Quality Stroke Does the patient have a stroke diagnosis?: No VTE Prior VTE?: No VTE Risk Level:: Medical - moderate - high VTE Device Contraindication: N/A - Device Ordered VTE Drug Contraindication: N/A - Med Ordered
[2022-02-02] MEDS: Barium Sulfate Oral (Vanilla) 450 ML ORAL.SUSP 900 ML PO (17:08)
[2022-02-02] MEDS: Warfarin Sodium 3 MG TABLET PO (17:44)
[2022-02-02] MEDS: Gabapentin 100 MG CAPSULE PO ×2 (17:44→20:24)
[2022-02-02] MEDS: Atorvastatin Calcium 20 MG TABLET PO (20:24)
[2022-02-02] MEDS: Temazepam 15 MG CAPSULE 30 MG PO (23:32)
[2022-02-03 04:00] VITALS: BP 142/70; PULSE 56; RESP 16; TEMP 37.2; O2SAT 100
[2022-02-03] MEDS: Pantoprazole Sodium 40 MG/10 ML VIAL IVPUSH ×2 (06:00→15:34)
[2022-02-03 06:55] LABS: INTERNATIONAL NORM RATIO 1.6 (0.9-1.1); Prothrombin Time 19.3 SEC (10.0-13.1)
[2022-02-03 07:31] VITALS: BP 132/71; PULSE 57; RESP 20; TEMP 36.7; O2SAT 99
[2022-02-03] MEDS: DULoxetine HCl 60 MG CAPSULE.DR PO (09:50)
[2022-02-03] MEDS: hydroCHLOROthiazide 12.5 MG TABLET PO (09:50)
[2022-02-03] MEDS: Folic Acid 1 MG TABLET PO (09:50)
[2022-02-03] MEDS: Lactated Ringers 1,000 ML 100 ML IVCONT ×2 (09:50→19:51)
[2022-02-03] MEDS: Enalapril Maleate 10 MG TABLET 20 MG PO ×2 (09:50→19:50)
[2022-02-03] MEDS: Metoprolol Succinate ER 50 MG TAB.ER.24H PO (09:50)
[2022-02-03] MEDS: Meclizine HCl 12.5 MG TABLET PO ×3 (09:50→19:50)
[2022-02-03] MEDS: Gabapentin 100 MG CAPSULE PO ×2 (09:51→19:51)
[2022-02-03] MEDS: Multivitamin TABLET 1 TAB PO (09:51)
[2022-02-03] MEDS: metHOTREXate sodium 2.5 MG TABLET 10 MG PO (10:49)
[2022-02-03 11:25] VITALS: BP 154/74; PULSE 56; RESP 20; TEMP 36.4; O2SAT 97
[2022-02-03 12:33] LABS: Hematocrit 42.1 % (37.0-47.0); Hemoglobin 13.2 g/dl (12.0-16.0)
[2022-02-03] MEDS: Lidocaine 4 % Patch ADH..PATCH 1 PATCH TRANSDERMA (13:10)
--- NOTE | 2022-02-03 15:08 | P.PNIM_ITS ---
Subjective Subjective Date of Service: 02/03/22 Interval History: dizziness , epigastric /left sided abd discomfort Review of Systems Still feel dizzy, has epigastric pain but somewhat better than yesterday. Denies any chest pain or shortness of breath Physical Exam Vital Signs: Vital Signs: Last Vital Signs Temp 97.6 F 02/03/22 11:25 Pulse 56 02/03/22 11:25 Resp 20 02/03/22 11:25 BP 154/74 H 02/03/22 11:25 Pulse Ox 97 02/03/22 11:25 O2 Del Method 02/03/22 11:25 BMI result Body Mass Index 31.2 Appearance: Alert.? Oriented X3.? not in distress.. cvs: rrr, [id number]. res: clear to auscultation ,no rhonchii or wheezing abd: no rebound or guarding ,epigastric/left sided abd pain, bs present. ext pulses present , no cyanosis . neuro: axo3 , nonfocal, dizziness. Objective Data Active Medications Acetaminophen (Acetaminophen 325 Mg Tablet) 650 mg PO Q8H PRN PRN Reason: Pain, Moderate (Pain Scale 4-6 Last Admin: 02/02/22 20:25 Dose: 650 mg Documented By: NHUNG Albuterol Sulfate (Albuterol Sulfate 90 Mcg 8 Gm Inhaler) 2 puff INHALE Q4H PRN PRN Reason: Asthma Atorvastatin Calcium (Atorvastatin Calcium 20 Mg Tablet) 20 mg PO BEDTIME [facility] Last Admin: 02/02/22 20:24 Dose: 20 mg Documented By: NHUNG Calcium Carbonate (Calcium Carbonate 500 Mg Tablet) 500 mg PO DAILY [facility] Last Admin: 02/03/22 09:51 Dose: 500 mg Documented By: KELLY Capsaicin (Capsaicin 0.025% Cream 60 Gm Tube) 1 appl TOPICAL QID PRN; Protocol PRN Reason: epigastric pain Clotrimazole (Clotrimazole 1 % Cream 15 Gm Tube) 1 appl TOPICAL DAILY PRN; Protocol PRN Reason: Rash Dicyclomine HCl (Dicyclomine Hcl 10 Mg Capsule) 10 mg PO TIDAC [facility] Duloxetine HCl (Duloxetine Hcl 60 Mg Capsule.) 60 mg PO DAILY [facility] Last Admin: 02/03/22 09:50 Dose: 60 mg Documented By: KELLY Enalapril Maleate (Enalapril Maleate 10 Mg Tablet) 20 mg PO BID [facility]; Protocol Last Admin: 02/03/22 09:50 Dose: 20 mg Documented By: KELLY Folic Acid (Folic Acid 1 Mg Tablet) 1 mg PO DAILY [facility] Last Admin: 02/03/22 09:50 Dose: 1 mg Documented By: KELLY Gabapentin (Gabapentin 100 Mg Capsule) 100 mg PO BID [facility] Last Admin: 02/03/22 09:51 Dose: 100 mg Documented By: KELLY Hydralazine HCl (Hydralazine Hcl 20 Mg/Ml Vial) 5 mg IVPUSH Q6H PRN; Protocol PRN Reason: htn Hydrochlorothiazide (Hydrochlorothiazide 12.5 Mg Tablet) 12.5 mg PO DAILY [facility]; Protocol Last Admin: 02/03/22 09:50 Dose: 12.5 mg Documented By: KELLY Hydromorphone HCl (Hydromorphone Hcl 0.5 Mg/0.5 Ml Syringe) 0.5 mg IVPUSH Q4H PRN; Protocol PRN Reason: Pain, Mild (Pain Scale 1-3) Lactated Ringer's (Lr) 1,000 mls @ 100 mls/hr IVCONT .Q10H [facility] Last Admin: 02/03/22 09:50 Dose: 100 mls/hr Documented By: KELLY Lidocaine (Lidocaine 4 % Patch Adh..Patch) 1 patch TRANSDERMA DAILY [facility]; Protocol Last Admin: 02/03/22 13:10 Dose: 1 patch Documented By: KELLY Meclizine HCl (Meclizine Hcl 12.5 Mg Tablet) 12.5 mg PO Q6H [facility] Last Admin: 02/03/22 09:50 Dose: 12.5 mg Documented By: KELLY Methotrexate (Methotrexate Sodium 2.5 Mg Tablet) 10 mg PO FR@0900 [facility] Last Admin: 02/03/22 10:49 Dose: 10 mg Documented By: KELLY Metoprolol Succinate (Metoprolol Succinate Er 50 Mg Tab.Er.24h) 50 mg PO DAILY [facility]; Protocol Last Admin: 02/03/22 09:50 Dose: 50 mg Documented By: KELLY Multivitamins/Vitamin C (Multivitamin Tablet) 1 tab PO DAILY [facility] Last Admin: 02/03/22 09:51 Dose: 1 tab Documented By: KELLY Ondansetron HCl (Ondansetron Hcl 4 Mg/2 Ml Vial) 4 mg IVPUSH Q4H PRN PRN Reason: Nausea Last Admin: 02/02/22 12:56 Dose: 4 mg Documented By: FRANTZ Pantoprazole Sodium (Pantoprazole Sodium 40 Mg/10 Ml Vial) 40 mg IVPUSH BID@0630,1630 [facility] Last Admin: 02/03/22 06:00 Dose: 40 mg Documented By: NHUNG Pharmacy Consult (Consult Rx Perform Med Rec) 1 each MISCELLANE ONCE PRN PRN Reason: Consult order Sodium Chloride (0.9 % Sodium Chloride Flush 3 Ml Syringe) 3 ml IVFLUSH QSHIFT [facility] Last Admin: 02/03/22 09:46 Dose: Not Given Documented By: KELLY Non-Admin Reason: IV Running Temazepam (Temazepam 15 Mg Capsule) 30 mg PO BEDTIME PRN PRN Reason: Insomnia Last Admin: 02/02/22 23:32 Dose: 30 mg Documented By: NHUNG Warfarin Sodium (Warfarin Sodium 3 Mg Tablet) 3 mg PO SUTUTHSA@1800 [facility] Last Admin: 02/02/22 17:44 Dose: 3 mg Documented By: ERYN Warfarin Sodium (Warfarin Sodium 6 Mg Tablet) 6 mg PO MOWEFR@1800 [facility] Warfarin Sodium (Warfarin Sodium 1 Mg Tablet) 1 mg PO ONCE@1800 ONE Stop: 02/03/22 16:01 Labs CBC & Chem 7: 02/03/22 12:12 02/02/22 11:00 Labs: Laboratory Results - last 24 hr 02/03/22 06:03 PT 19.3 H INR 1.6 H Assessment and Plan (1) Abdominal pain: Status: Acute (2) Vertigo: Status: Acute (3) Dizziness: Status: Acute Plan 77y/o F past medical hx hypertension, pulmonary embolism currently on warfarin INR checked upstairs 3.1 today, PVC GERD and? rheumatoid arthritis: 1. dizziness vs vertigo: ?possible differential diagnosis could be uncontrolled hypertension, BPPV versus vestibular neuritis. ?still dizziness with even sitting continue meclizine ?supportive care ?MRI and CT head seems to be fine. ?neuro evaluation pending-discussed briefly with neuro-suggested MRA since patient cannot get CT scan due to Iodinated needed contrast allergy. OT/pt eval-str. 2. hypertension:bp improving but suboptimal moniter on tele ?continue home medications-hctz/enalopril/metoprolol. will add amlodipine if persistently suboptimal. 3.? Asthma: stable, ?continue home meds. 4. rheumatoid arthritis:: ? Continue medications. 5. ? History of pulmonary embolism and DVTs: ?continue? warfarin INR is 1.6,adjused ? warfrain dose. 6.? of note:? Patient is Protestant:? refuses blood products. 7. abd pain: ? related to nausea/vomitin added ct abd po contrast-seems 1. No evidence of bowel obstruction or other acute intra-abdominal process. 2. Status post gastric bypass. no diarrahe or fevers or leucocytosis continue symptomatic management -ppi,zofran,pain managemnet with dilaudid [place] need for inpatient: [facility] - symptomatic ,needs monitering and neuro workup peding , abd pain-Gi eval pending also needs iv pain meds for abd pain,poor po intake Quality Stroke Does the patient have a stroke diagnosis?: No VTE Prior VTE?: No VTE Risk Level:: Medical - moderate - high VTE Device Contraindication: N/A - Device Ordered VTE Drug Contraindication: N/A - Med Ordered
[2022-02-03] MEDS: Warfarin Sodium 1 MG TABLET PO (15:33)
[2022-02-03] MEDS: Dicyclomine HCl 10 MG CAPSULE PO (15:33)
[2022-02-03 15:59] VITALS: BP 168/77; PULSE 60; RESP 16; TEMP 37.1; O2SAT 96
--- NOTE | 2022-02-03 16:08 | P.EN_ITS ---
Event Note Date of Service: 02/03/22 Event Note: GI consult dictated Abdominal sx are consistent with IBS. Discussed with patient via sign language interpreter. Advised use of loperamide for loose stools. Low dose dicyclomine started.
--- NOTE | 2022-02-03 16:08 | PM.EVENT ---
Event Note Date of Service: 02/03/22 Event Note: GI consult dictated Abdominal sx are consistent with IBS. Discussed with patient via clerical secretary. Advised use of loperamide for loose stools. Low dose dicyclomine started.
[2022-02-03] MEDS: Warfarin Sodium 6 MG TABLET PO (19:12)
[2022-02-03 19:36] VITALS: BP 140/68; PULSE 66; RESP 16; TEMP 36.7; O2SAT 98
[2022-02-03] MEDS: Temazepam 15 MG CAPSULE 30 MG PO (22:03)
[2022-02-03 23:15] VITALS: BP 128/57; PULSE 64; RESP 16; TEMP 36.7; O2SAT 97
[2022-02-04] VITALS (9 sets, daily range): BP systolic 112–161; BP diastolic 52–71; PULSE 51–75; RESP 16–20; TEMP 36.1–36.9; O2SAT 96–99
[2022-02-04] MEDS: Lactated Ringers 1,000 ML 100 ML IVCONT (03:41)
[2022-02-04] MEDS: Meclizine HCl 12.5 MG TABLET PO ×2 (03:41→09:35)
--- NOTE | 2022-02-04 04:46 | CONS_ITS ---
DATE OF SERVICE: 02/03/2022 REFERRING PHYSICIAN: Koko Hearn MD REASON FOR CONSULTATION: Abdominal pain. HISTORY OF PRESENT ILLNESS: The patient is a pleasant 77-year-old woman, who was admitted to the hospital on January 31 after presenting to the emergency room with complaints of nausea and vomiting as well as dizziness after having blood work done at the hospital as an outpatient. She describes about 3 years of left lower quadrant pain, which was intermittent and then worsened by food and sometimes relieved by bowel movements. She has no rectal bleeding, but sometimes stools are diarrheal. She believes this is an exacerbation of her diverticulitis, which she has had in the past. She does describe undergoing colonoscopy approximately 4 or 5 years ago at [facility] and may have had a polyp removed. Those records are not available. Since her hospitalization, evaluation for her abdominal symptoms have included laboratory studies showing a normal CBC, normal chemistry profile, and CT scanning, which is reviewed and is interpreted as showing no evidence of bowel obstruction or other acute intraabdominal findings. PAST MEDICAL HISTORY: 1. Hypertension. 2. Rheumatoid arthritis. 3. Pulmonary embolism. 4. Gastroesophageal reflux disease. 5. Rheumatoid arthritis. 6. PVCs. CURRENT MEDICATIONS: Her current medication list is reviewed in the chart. ALLERGIES: MULTIPLE MEDICATION ALLERGIES ARE REVIEWED. FAMILY HISTORY: This is reviewed with the patient and is noncontributory. SOCIAL HISTORY: There is no current tobacco, alcohol, or substance abuse. REVIEW OF SYSTEMS: SKIN: No pruritus. HEENT: Negative. CARDIOPULMONARY: She denies shortness of breath or chest pain. GASTROINTESTINAL: As above. GENITOURINARY: Negative. NEUROPSYCHIATRIC: Negative. PHYSICAL EXAMINATION: GENERAL: Shows a pleasant female, lying in bed. VITAL SIGNS: Reviewed in electronic medical record and are stable. SKIN: Anicteric. HEENT: Shows no scleral icterus. NECK: Without lymphadenopathy or thyromegaly. LUNGS: Clear. HEART: Shows a regular rate and rhythm. S1, S2. No murmur. ABDOMEN: Soft without focal masses or tenderness. Bowel sounds are present. There is no organomegaly. She does have some mild discomfort with deep palpation on the left side, but this seems to vanished when she is distracted. EXTREMITIES: Without edema. LABORATORY DATA: Reviewed. IMPRESSION: Abdominal pain. I believe her symptoms are most consistent with irritable bowel syndrome. I discussed this with her. I do not think this represents diverticulitis given the lack of findings on her CT scan. I discussed with her through an shed boss the difference between diverticulosis and diverticulitis and irritable bowel syndrome. I recommended she use Imodium as needed for loose stools at home and start a low dose of dicyclomine to see if this helps her abdominal discomfort. If she has worsening dizziness symptoms, this may need to be discontinued. Thanks for asking me to see her. I will follow her in the hospital as needed. MD NEO Ferrara/[facility] / [phone]
[2022-02-04] MEDS: Pantoprazole Sodium 40 MG/10 ML VIAL IVPUSH ×2 (05:46→17:52)
[2022-02-04 07:19] LABS: INTERNATIONAL NORM RATIO 1.6 (0.9-1.1); Prothrombin Time 18.1 SEC (10.0-13.1)
[2022-02-04] MEDS: DULoxetine HCl 60 MG CAPSULE.DR PO (09:35)
[2022-02-04] MEDS: hydroCHLOROthiazide 12.5 MG TABLET PO (09:35)
[2022-02-04] MEDS: Multivitamin TABLET 1 TAB PO (09:36)
[2022-02-04] MEDS: Enalapril Maleate 10 MG TABLET 20 MG PO ×2 (09:36→20:37)
[2022-02-04] MEDS: Gabapentin 100 MG CAPSULE PO ×2 (09:36→20:37)
[2022-02-04] MEDS: Folic Acid 1 MG TABLET PO (09:36)
[2022-02-04] MEDS: Metoprolol Succinate ER 50 MG TAB.ER.24H PO (09:36)
[2022-02-04] MEDS: Dicyclomine HCl 10 MG CAPSULE PO ×3 (09:36→17:52)
[2022-02-04] MEDS: Lidocaine 4 % Patch ADH..PATCH 1 PATCH TRANSDERMA (09:43)
[2022-02-04] MEDS: ondansetron HCL 4 MG/2 ML VIAL IVPUSH (09:44)
[2022-02-04] MEDS: 0.9 % Sodium Chloride Flush 3 ML SYRINGE IVFLUSH ×2 (09:45→18:00)
[2022-02-04] MEDS: Meclizine HCl 25 MG TABLET PO ×2 (12:08→17:52)
--- NOTE | 2022-02-04 14:08 | P.PNIM_ITS ---
Subjective Subjective Date of Service: 02/04/22 Interval History: dizziness , epigastric /left sided abd discomfort Review of Systems abd discomfort somewhat improving still dizziness with standin Physical Exam Vital Signs: Vital Signs: Last Vital Signs Temp 97.9 F 02/04/22 12:00 Pulse 54 02/04/22 12:00 Resp 20 02/04/22 12:00 BP 149/68 H 02/04/22 12:00 Pulse Ox 98 02/04/22 12:00 O2 Del Method 02/04/22 12:00 BMI result Body Mass Index 31.2 Appearance: Alert.? Oriented X3.? not in distress. cvs: rrr, [id number]. res: clear to auscultation ,no rhonchii or wheezing abd: no rebound or guarding ,epigastric/left sided abd pain, bs present. ext pulses present , no cyanosis . neuro: axo3 , nonfocal, dizziness. Objective Data Active Medications Acetaminophen (Acetaminophen 325 Mg Tablet) 650 mg PO Q8H PRN PRN Reason: Pain, Moderate (Pain Scale 4-6 Last Admin: 02/02/22 20:25 Dose: 650 mg Documented By: NHUNG Albuterol Sulfate (Albuterol Sulfate 90 Mcg 8 Gm Inhaler) 2 puff INHALE Q4H PRN PRN Reason: Asthma Atorvastatin Calcium (Atorvastatin Calcium 20 Mg Tablet) 20 mg PO BEDTIME [facility] Last Admin: 02/03/22 19:55 Dose: Not Given Documented By: ASHLEY Non-Admin Reason: Patient Refused Calcium Carbonate (Calcium Carbonate 500 Mg Tablet) 500 mg PO DAILY [facility] Last Admin: 02/04/22 09:35 Dose: 500 mg Documented By: JP Capsaicin (Capsaicin 0.025% Cream 60 Gm Tube) 1 appl TOPICAL QID PRN; Protocol PRN Reason: epigastric pain Clotrimazole (Clotrimazole 1 % Cream 15 Gm Tube) 1 appl TOPICAL DAILY PRN; Protocol PRN Reason: Rash Dicyclomine HCl (Dicyclomine Hcl 10 Mg Capsule) 10 mg PO TIDAC [facility] Last Admin: 02/04/22 12:08 Dose: 10 mg Documented By: MARAI T Duloxetine HCl (Duloxetine Hcl 60 Mg Capsule.) 60 mg PO DAILY [facility] Last Admin: 02/04/22 09:35 Dose: 60 mg Documented By: JP Enalapril Maleate (Enalapril Maleate 10 Mg Tablet) 20 mg PO BID [facility]; Protocol Last Admin: 02/04/22 09:36 Dose: 20 mg Documented By: JP Folic Acid (Folic Acid 1 Mg Tablet) 1 mg PO DAILY [facility] Last Admin: 02/04/22 09:36 Dose: 1 mg Documented By: JP Gabapentin (Gabapentin 100 Mg Capsule) 100 mg PO BID [facility] Last Admin: 02/04/22 09:36 Dose: 100 mg Documented By: JP Hydralazine HCl (Hydralazine Hcl 20 Mg/Ml Vial) 5 mg IVPUSH Q6H PRN; Protocol PRN Reason: htn Hydrochlorothiazide (Hydrochlorothiazide 12.5 Mg Tablet) 12.5 mg PO DAILY [facility]; Protocol Last Admin: 02/04/22 09:35 Dose: 12.5 mg Documented By: JP Hydromorphone HCl (Hydromorphone Hcl 0.5 Mg/0.5 Ml Syringe) 0.5 mg IVPUSH Q4H PRN; Protocol PRN Reason: Pain, Mild (Pain Scale 1-3) Lidocaine (Lidocaine 4 % Patch Adh..Patch) 1 patch TRANSDERMA DAILY [facility]; Mehran col Last Admin: 02/04/22 09:43 Dose: 1 patch Documented By: JP Loperamide HCl (Loperamide Hcl 2 Mg Capsule) 2 mg PO Q4H PRN PRN Reason: Diarrhea Meclizine HCl (Meclizine Hcl 25 Mg Tablet) 25 mg PO Q6H [facility] Last Admin: 02/04/22 12:08 Dose: 25 mg Documented By: MARIA T Methotrexate (Methotrexate Sodium 2.5 Mg Tablet) 10 mg PO FR@0900 [facility] Last Admin: 02/03/22 10:49 Dose: 10 mg Documented By: KELLY Metoprolol Succinate (Metoprolol Succinate Er 50 Mg Tab.Er.24h) 50 mg PO DAILY [facility]; Protocol Last Admin: 02/04/22 09:36 Dose: 50 mg Documented By: JP Multivitamins/Vitamin C (Multivitamin Tablet) 1 tab PO DAILY [facility] Last Admin: 02/04/22 09:36 Dose: 1 tab Documented By: JP Ondansetron HCl (Ondansetron Hcl 4 Mg/2 Ml Vial) 4 mg IVPUSH Q4H PRN PRN Reason: Nausea Last Admin: 02/04/22 09:44 Dose: 4 mg Documented By: JP Pantoprazole Sodium (Pantoprazole Sodium 40 Mg/10 Ml Vial) 40 mg IVPUSH BID@0630,1630 [facility] Last Admin: 02/04/22 05:46 Dose: 40 mg Documented By: ASHLEY Pharmacy Consult (Consult Rx Perform Med Rec) 1 each MISCELLANE ONCE PRN PRN Reason: Consult order Sodium Chloride (0.9 % Sodium Chloride Flush 3 Ml Syringe) 3 ml IVFLUSH QSHIFT [facility] Last Admin: 02/04/22 09:45 Dose: 3 ml Documented By: JP Temazepam (Temazepam 15 Mg Capsule) 30 mg PO BEDTIME PRN PRN Reason: Insomnia Last Admin: 02/03/22 22:03 Dose: 30 mg Documented By: ASHLEY Warfarin Sodium (Warfarin Sodium 6 Mg Tablet) 6 mg PO MOWEFR@1800 [facility] Last Admin: 02/03/22 19:12 Dose: 6 mg Documented By: KELLY Warfarin Sodium (Warfarin Sodium 4 Mg Tablet) 4 mg PO SUTUTHSA@1800 [facility] Labs CBC & Chem 7: 02/03/22 12:12 02/02/22 11:00 Labs: Laboratory Results - last 24 hr 02/04/22 06:02 PT 18.1 H INR 1.6 H Assessment and Plan (1) Vertigo: Status: Acute Plan 77y/o F past medical hx hypertension, pulmonary embolism currently on warfarin , PVC GERD and? rheumatoid arthritis: 1. dizziness vs vertigo: ?possible differential diagnosis could be uncontrolled hypertension, BPPV versus vestibular neuritis. ?still dizziness with even sitting continue meclizine ?supportive care ?MRI and CT head seems to be fine. ?discussed briefly with neuro-suggested MRA neg . added orthostasis, meclizine OT/pt eval-str. 2. hypertension:bp improving moniter on tele ?continue home medications-hctz/enalopril/metoprolol. will add amlodipine if persistently suboptimal. 3.? Asthma: stable, ?continue home meds. 4. rheumatoid arthritis:: ? Continue medications. 5. ? History of pulmonary embolism and DVTs: ?continue? warfarin INR is 1.6,adjused ? warfrain dose. 6.? of note:? Patient is Anglican:? refuses blood products. 7. abd pain: ? related to nausea/vomitin added ct abd po contrast-seems?1. No evidence of bowel obstruction or other acute intra-abdominal process. 2. Status post gastric bypass. no diarrahe or fevers or leucocytosis continue symptomatic management -ppi,zofran,pain managemnet with dilaudid Gieval noted -added immodium ?ibs need for inpatient:persistent vertiago - symptomatic , neuro eval pending Quality Stroke Does the patient have a stroke diagnosis?: No VTE Prior VTE?: No VTE Risk Level:: Medical - moderate - high VTE Device Contraindication: N/A - Device Ordered VTE Drug Contraindication: N/A - Med Ordered
--- NOTE | 2022-02-04 15:13 | PM.NEUROCN ---
History of Present Illness Data of Consult Service Date: 02/04/22 Primary Care Provider: Erik Farrar MD HPI Reason for consult: Dizziness 77 years old woman with underlying history of rheumatoid arthritis, history of pulmonary embolism on anticoagulation, was having blood drawn and hospital after which she started complaining of dizziness nausea and vomiting and was admitted. After evaluation no definite cause of dizziness was noted in this consultation was requested. When I saw her she was with her multiple family members and she was sitting in a recliner chair with no sign of distress. She reported that dizziness was there continuously and it was room spinning type. There was no associated nausea numbness weakness speech or language difficulty or headache at this time though in the past she did have headache with seeing flashy stars. Her family also stated that she suffered from chronic insomnia and many times would not sleep for number of days. Review of Systems Review of Systems: No recent obvious cold or flu-like illness she denied any ear or eye problems PMFSH Past Medical History Medical History Leg edema Rheumatoid arthritis Family History Family History Father Asthma Mother Rheumatoid arthritis Cardiovascular disease Surgical History Surgical History History of appendectomy History of bariatric surgery History of cholecystectomy History of colonoscopy History of total abdominal hysterectomy and bilateral salpingo-oophorectomy Social History Social History Household Members: Family Housing: House Do you presently have visiting nurse or other home services: Yes (PT 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 a [employer]) Alcohol intake: never Patient Tobacco Use Status: Never used Tobacco Advance Directives Date on File: 03/17/20 service: No Current occupational status: disabled Meds Allergies Allergy/AdvReac Type Severity Reaction Status Date / Time Iodinated Contrast Media Allergy Intermediate SWELLING, Verified 01/31/22 11:30 [CONTRAST, IV] ITCHINESS, RASH Penicillins [PENICILLINS] Allergy Intermediate ITCHINESS, Verified 01/31/22 11:30 RASH, SWELLING latex Allergy Hives Verified 01/31/22 11:30 Sulfa (Sulfonamide Allergy Unknown Verified 01/31/22 11:30 Antibiotics) Active Medications: Current Medications Acetaminophen (Acetaminophen 325 Mg Tablet) 650 mg PO Q8H PRN PRN Reason: Pain, Moderate (Pain Scale 4-6 Last Admin: 02/02/22 20:25 Dose: 650 mg Albuterol Sulfate (Albuterol Sulfate 90 Mcg 8 Gm Inhaler) 2 puff INHALE Q4H PRN PRN Reason: Asthma Atorvastatin Calcium (Atorvastatin Calcium 20 Mg Tablet) 20 mg PO BEDTIME [facility] Last Admin: 02/03/22 19:55 Dose: Not Given Calcium Carbonate (Calcium Carbonate 500 Mg Tablet) 500 mg PO DAILY [facility] Last Admin: 02/04/22 09:35 Dose: 500 mg Capsaicin (Capsaicin 0.025% Cream 60 Gm Tube) 1 appl TOPICAL QID PRN; Protocol PRN Reason: epigastric pain Clotrimazole (Clotrimazole 1 % Cream 15 Gm Tube) 1 appl TOPICAL DAILY PRN; Protocol PRN Reason: Rash Dicyclomine HCl (Dicyclomine Hcl 10 Mg Capsule) 10 mg PO TIDAC [facility] Last Admin: 02/04/22 12:08 Dose: 10 mg Duloxetine HCl (Duloxetine Hcl 60 Mg Capsule.Dr) 60 mg PO DAILY [facility] Last Admin: 02/04/22 09:35 Dose: 60 mg Enalapril Maleate (Enalapril Maleate 10 Mg Tablet) 20 mg PO BID [facility]; Protocol Last Admin: 02/04/22 09:36 Dose: 20 mg Folic Acid (Folic Acid 1 Mg Tablet) 1 mg PO DAILY [facility] Last Admin: 02/04/22 09:36 Dose: 1 mg Gabapentin (Gabapentin 100 Mg Capsule) 100 mg PO BID [facility] Last Admin: 02/04/22 09:36 Dose: 100 mg Hydralazine HCl (Hydralazine Hcl 20 Mg/Ml Vial) 5 mg IVPUSH Q6H PRN; Protocol PRN Reason: htn Hydrochlorothiazide (Hydrochlorothiazide 12.5 Mg Tablet) 12.5 mg PO DAILY [facility]; Protocol Last Admin: 02/04/22 09:35 Dose: 12.5 mg Hydromorphone HCl (Hydromorphone Hcl 0.5 Mg/0.5 Ml Syringe) 0.5 mg IVPUSH Q4H PRN; Protocol PRN Reason: Pain, Mild (Pain Scale 1-3) Lidocaine (Lidocaine 4 % Patch Adh..Patch) 1 patch TRANSDERMA DAILY [facility]; Protocol Last Admin: 02/04/22 09:43 Dose: 1 patch Loperamide HCl (Loperamide Hcl 2 Mg Capsule) 2 mg PO Q4H PRN PRN Reason: Diarrhea Meclizine HCl (Meclizine Hcl 25 Mg Tablet) 25 mg PO Q6H [facility] Last Admin: 02/04/22 12:08 Dose: 25 mg Methotrexate (Methotrexate Sodium 2.5 Mg Tablet) 10 mg PO FR@0900 [facility] Last Admin: 02/03/22 10:49 Dose: 10 mg Metoprolol Succinate (Metoprolol Succinate Er 50 Mg Tab.Er.24h) 50 mg PO DAILY [facility]; Protocol Last Admin: 02/04/22 09:36 Dose: 50 mg Multivitamins/Vitamin C (Multivitamin Tablet) 1 tab PO DAILY [facility] Last Admin: 02/04/22 09:36 Dose: 1 tab Ondansetron HCl (Ondansetron Hcl 4 Mg/2 Ml Vial) 4 mg IVPUSH Q4H PRN PRN Reason: Nausea Last Admin: 02/04/22 09:44 Dose: 4 mg Pantoprazole Sodium (Pantoprazole Sodium 40 Mg/10 Ml Vial) 40 mg IVPUSH BID@0630,1630 [facility] Last Admin: 02/04/22 05:46 Dose: 40 mg Pharmacy Consult (Consult Rx Perform Med Rec) 1 each MISCELLANE ONCE PRN PRN Reason: Consult order Sodium Chloride (0.9 % Sodium Chloride Flush 3 Ml Syringe) 3 ml IVFLUSH QSHIFT [facility] Last Admin: 02/04/22 09:45 Dose: 3 ml Temazepam (Temazepam 15 Mg Capsule) 30 mg PO BEDTIME PRN PRN Reason: Insomnia Last Admin: 02/03/22 22:03 Dose: 30 mg Warfarin Sodium (Warfarin Sodium 6 Mg Tablet) 6 mg PO MOWEFR@1800 [facility] Last Admin: 02/03/22 19:12 Dose: 6 mg Warfarin Sodium (Warfarin Sodium 4 Mg Tablet) 4 mg PO SUTUTHSA@1800 [facility] Home Medications Medication Instructions Recorded Confirmed Last Taken Type albuterol sulfate 90 mcg/actuation 2 puff inhalation Q4H PRN Asthma 03/11/20 01/31/22 Unknown History aerosol inhaler (ProAir HFA) enalapril maleate 20 mg tablet 20 mg PO BID 03/11/20 01/31/22 01/31/22 History temazepam 30 mg capsule 30 mg PO BEDTIME PRN Insomnia 03/11/20 01/31/22 Unknown History pantoprazole 40 mg tablet,delayed 40 mg PO DAILY@0630 09/01/20 01/31/22 01/31/22 History release duloxetine 60 mg capsule,delayed 60 mg PO DAILY 04/14/21 01/31/22 01/31/22 History release lorazepam 0.5 mg tablet 0.5 mg PO DAILY PRN Anxiety 04/14/21 01/31/22 Unknown History atorvastatin 20 mg tablet 20 mg PO BEDTIME 07/14/21 01/31/22 01/30/22 History hydrochlorothiazide 12.5 mg tablet 12.5 mg PO DAILY 07/14/21 01/31/22 01/31/22 History metoprolol succinate 50 mg 50 mg PO DAILY 07/14/21 01/31/22 01/31/22 History tablet,extended release 24 hr multivitamin 1 tab PO DAILY 08/29/21 01/31/22 01/31/22 History diclofenac sodium 1 % topical gel 4 g topical BID 01/05/22 01/31/22 01/31/22 History calcium carbonate 600 mg calcium 600 mg PO DAILY 01/31/22 01/31/22 01/31/22 History (1,500 mg) tablet (Calcium) clotrimazole 1 % topical cream 1 appl topical DAILY PRN Rash 01/31/22 01/31/22 01/31/22 History methotrexate sodium 2.5 mg tablet 10 mg PO FR@0900 01/31/22 01/31/22 01/27/22 History vit C 250 mg-vit E 90 mg-zinc 40 1 tab PO BID 01/31/22 01/31/22 01/31/22 History mg-copper 1 [id number] capsule (PreserVision AREDS-2) warfarin 3 mg tablet 3 mg PO SUTUTHSA@1800 01/31/22 01/31/22 01/29/22 History warfarin 3 mg tablet 6 mg PO MOWEFR@1800 01/31/22 01/31/22 01/30/22 History Physical Exam Vital Signs: Vital Signs: Last Vital Signs Temp 97.9 F 02/04/22 12:00 Pulse 73 02/04/22 14:53 Resp 20 02/04/22 12:00 BP 112/52 L 02/04/22 14:53 Pulse Ox 98 02/04/22 12:00 O2 Del Method 02/04/22 12:00 BMI result Body Mass Index 31.2 Neuro: Other: She is alert and awake with normal spontaneity of speech fluency comprehension and affect. Face is symmetrical. Visual singh are full. There is no nystagmus. There is no pronator drift. Deep tendon reflexes were trace with flexor plantars. Results Labs CBC & Chem 7: 02/03/22 12:12 02/02/22 11:00 Labs: MRI and MRA of brain revealed mild atrophy and microvascular ischemic disease with no acute lesion. Assessment and Plan (1) Vertigo: Status: Acute 77 years old woman with complaint of continuous vertiginous type of dizziness with no change with usual activities. There was no other associated symptom except that when she was admitted she also had nausea. She said that she never had this type of dizziness before. Examination did not reveal any nystagmus or any focality. Imaging did not reveal any acute lesion. Atrophy and microvascular ischemic changes were noted while vertebral basilar system was intact on MRI of brain. She did not have any ear symptoms. Differential diagnosis would include peripheral vestibular disorder in which case this type of dizziness can improve on its own after few days to weeks with symptomatic treatment with meclizine type of medicine, reassurance and caution. There is also possibility of psychosomatic illness because of her family's description of at least some tendency for psychological issues with not able to sleep for many days. In any case there is no indication of a stroke or meningitis at this time. I recommend conservative measure with p.r.n. meclizine and rehab Procedures Date of Service Date of Service: 02/04/22
[2022-02-04] MEDS: Warfarin Sodium 4 MG TABLET PO (17:54)
[2022-02-04] MEDS: Temazepam 15 MG CAPSULE 30 MG PO (22:34)
[2022-02-05] MEDS: Meclizine HCl 25 MG TABLET PO ×4 (00:48→17:26)
[2022-02-05 03:37] VITALS: BP 141/67; PULSE 54; RESP 20; TEMP 36.5; O2SAT 97
[2022-02-05] MEDS: Omeprazole 40 MG CAPSULE.DR PO ×2 (05:30→17:27)
[2022-02-05 06:34] LABS: INTERNATIONAL NORM RATIO 1.9 (0.9-1.1); Prothrombin Time 22.1 SEC (10.0-13.1)
[2022-02-05 07:18] VITALS: BP 135/67; PULSE 52; RESP 20; TEMP 36.6; O2SAT 97
[2022-02-05] MEDS: Lidocaine 4 % Patch ADH..PATCH 1 PATCH TRANSDERMA (09:24)
[2022-02-05] MEDS: Enalapril Maleate 10 MG TABLET 20 MG PO ×2 (09:25→21:50)
[2022-02-05] MEDS: hydroCHLOROthiazide 12.5 MG TABLET PO (09:25)
[2022-02-05] MEDS: DULoxetine HCl 60 MG CAPSULE.DR PO (09:25)
[2022-02-05] MEDS: Folic Acid 1 MG TABLET PO (09:25)
[2022-02-05] MEDS: Metoprolol Succinate ER 50 MG TAB.ER.24H PO (09:25)
[2022-02-05] MEDS: Multivitamin TABLET 1 TAB PO (09:25)
[2022-02-05] MEDS: Gabapentin 100 MG CAPSULE PO ×2 (09:25→21:49)
[2022-02-05] MEDS: Dicyclomine HCl 10 MG CAPSULE PO ×3 (09:26→17:27)
[2022-02-05] MEDS: 0.9 % Sodium Chloride Flush 3 ML SYRINGE IVFLUSH ×3 (09:26→21:50)
[2022-02-05 11:32] VITALS: BP 128/65; PULSE 53; RESP 20; TEMP 36.8; O2SAT 96
--- NOTE | 2022-02-05 13:26 | P.PNIM_ITS ---
Subjective Subjective Date of Service: 02/15/22 Interval History: dizziness Review of Systems patient is still feel dizzy even with standing up Abdominal pain and nausea improved significantly. Physical Exam Vital Signs: Vital Signs: Last Vital Signs Temp 98.3 F 02/05/22 11:32 Pulse 53 02/05/22 11:32 Resp 20 02/05/22 11:32 BP 128/65 02/05/22 11:32 Pulse Ox 96 02/05/22 11:32 O2 Del Method 02/05/22 11:32 BMI result Body Mass Index 31.2 Appearance: Alert.? Oriented X3.? not in distress.. cvs: rrr, [id number]. res: clear to auscultation ,no rhonchii or wheezing abd: no rebound or guarding ,mild epigastric discomfort improving, bs present. ext pulses present , no cyanosis . neuro: axo3 , nonfocal, dizziness. Objective Data Active Medications Acetaminophen (Acetaminophen 325 Mg Tablet) 650 mg PO Q8H PRN PRN Reason: Pain, Moderate (Pain Scale 4-6 Last Admin: 02/02/22 20:25 Dose: 650 mg Documented By: NHUNG Albuterol Sulfate (Albuterol Sulfate 90 Mcg 8 Gm Inhaler) 2 puff INHALE Q4H PRN PRN Reason: Asthma Atorvastatin Calcium (Atorvastatin Calcium 20 Mg Tablet) 20 mg PO BEDTIME [facility] Last Admin: 02/04/22 20:37 Dose: Not Given Documented By: ANTONIETTA Non-Admin Reason: Patient Refused Calcium Carbonate (Calcium Carbonate 500 Mg Tablet) 500 mg PO DAILY [facility] Last Admin: 02/05/22 09:25 Dose: 500 mg Documented By: JP Capsaicin (Capsaicin 0.025% Cream 60 Gm Tube) 1 appl TOPICAL QID PRN; Protocol PRN Reason: epigastric pain Clotrimazole (Clotrimazole 1 % Cream 15 Gm Tube) 1 appl TOPICAL DAILY PRN; Protocol PRN Reason: Rash Dicyclomine HCl (Dicyclomine Hcl 10 Mg Capsule) 10 mg PO TIDAC [facility] Last Admin: 02/05/22 09:26 Dose: 10 mg Documented By: JP Duloxetine HCl (Duloxetine Hcl 60 Mg Capsule.) 60 mg PO DAILY [facility] Last Admin: 02/05/22 09:25 Dose: 60 mg Documented By: JP Enalapril Maleate (Enalapril Maleate 10 Mg Tablet) 20 mg PO BID [facility]; Protocol Last Admin: 02/05/22 09:25 Dose: 20 mg Documented By: JP Folic Acid (Folic Acid 1 Mg Tablet) 1 mg PO DAILY [facility] Last Admin: 02/05/22 09:25 Dose: 1 mg Documented By: JP Gabapentin (Gabapentin 100 Mg Capsule) 100 mg PO BID [facility] Last Admin: 02/05/22 09:25 Dose: 100 mg Documented By: JP Hydralazine HCl (Hydralazine Hcl 20 Mg/Ml Vial) 5 mg IVPUSH Q6H PRN; Protocol PRN Reason: htn Hydrochlorothiazide (Hydrochlorothiazide 12.5 Mg Tablet) 12.5 mg PO DAILY [facility]; Protocol Last Admin: 02/05/22 09:25 Dose: 12.5 mg Documented By: JP Lidocaine (Lidocaine 4 % Patch Adh..Patch) 1 patch TRANSDERMA DAILY [facility]; Protocol Last Admin: 02/05/22 09:24 Dose: 1 patch Documented By: JP Loperamide HCl (Loperamide Hcl 2 Mg Capsule) 2 mg PO Q4H PRN PRN Reason: Diarrhea Meclizine HCl (Meclizine Hcl 25 Mg Tablet) 25 mg PO Q6H [facility] Last Admin: 02/05/22 05:30 Dose: 25 mg Documented By: SALOME Methotrexate (Methotrexate Sodium 2.5 Mg Tablet) 10 mg PO FR@0900 [facility] Last Admin: 02/03/22 10:49 Dose: 10 mg Documented By: KELLY Metoprolol Succinate (Metoprolol Succinate Er 50 Mg Tab.Er.24h) 50 mg PO DAILY [facility]; Protocol Last Admin: 02/05/22 09:25 Dose: 50 mg Documented By: JP Multivitamins/Vitamin C (Multivitamin Tablet) 1 tab PO DAILY [facility] Last Admin: 02/05/22 09:25 Dose: 1 tab Documented By: JP Omeprazole (Omeprazole 40 Mg Capsule.) 40 mg PO BID@0630,1630 [facility] Last Admin: 02/05/22 05:30 Dose: 40 mg Documented By: SALOME Ondansetron HCl (Ondansetron Odt 4 Mg Tab.Rapdis) 4 mg TRANSLINGU Q8H PRN PRN Reason: Nausea and Vomiting Oxycodone HCl (Oxycodone Hcl Immed Release 5 Mg Tablet) 2.5 mg PO Q6H PRN PRN Reason: Pain, Severe (Pain Scale 7-10) Pharmacy Consult (Consult Rx Perform Med Rec) 1 each MISCELLANE ONCE PRN PRN Reason: Consult order Sodium Chloride (0.9 % Sodium Chloride Flush 3 Ml Syringe) 3 ml IVFLUSH QSHIFT [facility] Last Admin: 02/05/22 09:26 Dose: 3 ml Documented By: JP Temazepam (Temazepam 15 Mg Capsule) 30 mg PO BEDTIME PRN PRN Reason: Insomnia Last Admin: 02/04/22 22:34 Dose: 30 mg Documented By: ANTONIETTA Warfarin Sodium (Warfarin Sodium 6 Mg Tablet) 6 mg PO MOWEFR@1800 [facility] Last Admin: 02/03/22 19:12 Dose: 6 mg Documented By: KELLY Warfarin Sodium (Warfarin Sodium 4 Mg Tablet) 4 mg PO SUTUTHSA@1800 [facility] Last Admin: 02/04/22 17:54 Dose: 4 mg Documented By: JP Labs CBC & Chem 7: 02/03/22 12:12 02/02/22 11:00 Labs: Laboratory Results - last 24 hr 02/05/22 06:11 PT 22.1 H INR 1.9 H Assessment and Plan (1) Dizziness: Status: Acute Plan 77y/o F past medical hx hypertension, pulmonary embolism currently on warfarin INR checked upstairs 3.1 today, PVC GERD and? rheumatoid arthritis: 1. dizziness vs vertigo: ?possible differential diagnosis could be uncontrolled hypertension, BPPV versus vestibular neuritis. ?still dizziness with even sitting ?MRI and CT head seems to be fine. ?neuro evaluation pending-discussed briefly with neuro-suggested MRA since patient cannot get CT scan due to Iodinated? needed contrast allergy. MRA -seems fine OT/pt eval-str. continue meclizine ?supportive care 2. hypertension:bp improving but suboptimal moniter on tele ?continue home medications-hctz/enalopril/metoprolol. will add amlodipine if persistently suboptimal. 3.? Asthma: stable, ?continue home meds. 4. rheumatoid arthritis:: ? Continue medications. 5. ? History of pulmonary embolism and DVTs: ?continue? warfarin INR is 1.6,adjused ? warfrain dose. 6.? of note:? Patient is Mosque:? refuses blood products. 7. abd pain: ? related to nausea/vomitin added ct abd po contrast-seems?1. No evidence of bowel obstruction or other acute intra-abdominal process. 2. Status post gastric bypass. no diarrahe or fevers or leucocytosis continue symptomatic management -ppi,zofran,pain managemnet with dilaudid [place] need for inpatient:about rehab versus home with services. awaiting for safe discharge plan Quality Stroke Does the patient have a stroke diagnosis?: No VTE Prior VTE?: No VTE Risk Level:: Medical - moderate - high VTE Device Contraindication: N/A - Device Ordered VTE Drug Contraindication: N/A - Med Ordered
--- NOTE | 2022-02-05 13:35 | MHC.CM.PN ---
PT is recommending STR and Patient's Daughter/Becky @ [phone] and Patient's Son are in agreement now with STR but Patient continues to refuse STR. Becky has indicated that she and her Brother are still trying to convince Patient to go to STR but if ultimately she refuses, Becky or Patient's Son are willing to have Patient stay with them so that she is not alone. CM will follow.
[2022-02-05 16:00] VITALS: BP 144/65; PULSE 55; RESP 15; TEMP 36.4; O2SAT 97
[2022-02-05] MEDS: Warfarin Sodium 4 MG TABLET PO (17:26)
[2022-02-05 19:17] VITALS: BP 106/53; PULSE 60; RESP 15; TEMP 36.2; O2SAT 97
[2022-02-05] MEDS: Temazepam 15 MG CAPSULE 30 MG PO (21:59)
[2022-02-06] VITALS: BP 120/59; PULSE 59; RESP 18; TEMP 36.2; O2SAT 97
[2022-02-06] MEDS: Meclizine HCl 25 MG TABLET PO ×5 (00:14→22:29)
[2022-02-06 04:00] VITALS: BP 121/58; PULSE 65; RESP 18; TEMP 36.4; O2SAT 97
[2022-02-06] MEDS: Omeprazole 40 MG CAPSULE.DR PO ×2 (05:40→17:18)
[2022-02-06 07:36] VITALS: BP 135/68; PULSE 56; RESP 18; TEMP 36.1; O2SAT 96
[2022-02-06 08:08] LABS: INTERNATIONAL NORM RATIO 1.8 (0.9-1.1); Prothrombin Time 21.7 SEC (10.0-13.1)
[2022-02-06] MEDS: DULoxetine HCl 60 MG CAPSULE.DR PO (08:38)
[2022-02-06] MEDS: Metoprolol Succinate ER 50 MG TAB.ER.24H PO (08:38)
[2022-02-06] MEDS: Enalapril Maleate 10 MG TABLET 20 MG PO ×2 (08:38→22:32)
[2022-02-06] MEDS: 0.9 % Sodium Chloride Flush 3 ML SYRINGE IVFLUSH ×3 (08:38→22:33)
[2022-02-06] MEDS: Lidocaine 4 % Patch ADH..PATCH 1 PATCH TRANSDERMA (08:38)
[2022-02-06] MEDS: Dicyclomine HCl 10 MG CAPSULE PO ×3 (08:38→17:18)
[2022-02-06] MEDS: hydroCHLOROthiazide 12.5 MG TABLET PO (08:38)
[2022-02-06] MEDS: Gabapentin 100 MG CAPSULE PO ×2 (08:38→22:32)
[2022-02-06] MEDS: Folic Acid 1 MG TABLET PO (08:38)
[2022-02-06] MEDS: Multivitamin TABLET 1 TAB PO (08:38)
[2022-02-06 11:17] VITALS: BP 131/69; PULSE 60; RESP 18; TEMP 36.1; O2SAT 100
--- NOTE | 2022-02-06 13:01 | MHC.CM.PN ---
PATIENT REFUSES SNF PLACEMENT PLAN IS HOME TOMORROW WITH RESUMPTION OF HER [employer] AND ADDED PT SERVICES. PATTI (ALEXANDER RN FOR [facility]) AWARE OF ANTICIPATED DISCHARGE. [phone]
[2022-02-06 15:55] VITALS: BP 100/57; PULSE 59; RESP 18; TEMP 36.1; O2SAT 97
--- NOTE | 2022-02-06 16:19 | MHC.CM.PN ---
PATIENT ACCEPTED BY MAN DAUGHTER JIMENA ([phone]) ASSURES T/W THAT BECAUSE OF FAMILY SUPPORT AND [employer] HOURS, PATIENT WILL HAVE SOMEONE WITH HER AT ALL TIMES. FAMILY TO TRANSPORT PATIENT HOME. RN MADE AWARE OF PLAN
--- NOTE | 2022-02-06 16:21 | W.MHC.F2F ---
Service Date Service Date: 02/06/22 Encounter Date of encounter: 02/06/22 Encounter: Dizziness, persistent nausea vomiting Reasons for Services Signs and symptoms assessed: Dizziness. Subtherapeutic inr Reason for correction: monitoring of PT/INR, medication management, medication treatment and teach disease management Reason for physical therapy: home safety and mobility, therapeutic exercises, restore joint function, gait/transfer training, assess need for DME, ADL training, energy conservation and other MD Overseeing Care: Erik Farrar Homebound: Leaving the home is medically contraindicated at this time without the asist of a device and/or another person due th the listed conditions above and below. Reason homebound: weakness related to hospital stay Homebound supporting statement: Patient is generalized weak post hospitalization, has multiple comorbidities and need help to go to appointments. Certification: Based on the above findings, I certify that this patient is confined to the home and needs intermittent correction care, physical therapy and/or speech therapy, or continues to need occupational therapy. The patient is under my care, and I have initiated the establishment of the plan of care. The patient will be followed by a physician who will periodically review the plan of care.
--- NOTE | 2022-02-06 16:24 | P.DS_ITS ---
DS: Providers Provider Date of Service: 02/06/22 Date of admission: 01/31/22 19:43 Primary care physician: Erik Farrar MD Consults: 01/31/22 19:51 Consult to Neurology Routine Consulting Provider: [facility] Reason for consultation: vertiago-unclear etiology Has provider been notified: No 02/03/22 11:43 Consult to Gastroenterology [place]ine [place]ing [place] [facility] [place] [facility] Reason for consultation: Persistent abd pain Has provider been notified: No DS: Diagnosis Discharge Diagnosis (1) Vertigo: Status: Acute (2) Abdominal pain: Status: Acute (3) Hypertensive urgency: Status: Acute (4) Nausea & vomiting: Status: Acute (5) Dizziness: Status: Acute (6) Current use of anticoagulant therapy: Status: Acute DS: Summary Hospital Course Hospital Course: 77y/o F past medical hx of RA,hypertension, pulmonary embolism currently on warfarin INR checked upstairs 3.1 today, PVC GERD and? rheumatoid arthritis presenting to the ED via wheelchair after she was in the laboratory upstairs here at [facility] having labs drawn that were ordered by her PCP and when she finished drawing her labs she did not feel well? and immediately started to have nausea / vomiting and dizziness therefore she was brought here for further evaluation . ?Daughter in-law at bedside Yolanda reports that she had COVID on December 19 and since then she has been not feeling well and having intermittent episodes of dizziness.? otherwise daughter in-law reports that she was acting her normal self this morning she was able to walk into the laboratory to have her blood drawn. ?patient family at bedside denies any? syncopal episode or seizure. ?patient denies any chest pain or shortness of breath or abdominal pain? or cough or fever or chills or any blurry vision ?patient has vaccinated? for [employer]- Plastyc vaccinex3. hopsital course: Patient came to the hospital because of dizziness as well as nausea vomiting and abdominal pain. Dizziness is possible vertiginous type-workup including CT scan of head and MRA seems to be fine-seen by Neurology and recommended symptomatic treatment of antiemetic as well as meclizine, patient 's dizziness to be improved significantly-may go home with the services he since patient does not want to go to rehab. Persistent nausea and vomiting: Responded well to antiemetics and supportive care with hydration now patient started tolerated diet , encouraged for hydration. Patient also had abdominal pain and some diarrhea episodes: Seen by GI for above persistent nausea vomiting as well as abdominal pain: Thought to be related to possible a table bowel syndrome, recommended to add loperamide for p.r.n. for diarrhea. Patient has history of DVT: INR is 1.8 to 1.9 range, adjusted Coumadin. Meri sheikh INR outpatient. htn urgency: Her blood pressure seems to be stable with her home medication probably initial elevated blood pressure due to due to pain and also persistent nausea vomiting as well as anxious-will continue home medication regimen for now, monitor blood pressure out patiently and follow-up with PCP if needed for further blood pressure medication adjustment can be done out patiently plan: Please continue as needed meclizine for dizziness. Monitor INR outpatient before DVT and warfarin adjusted. Monitor blood pressure if needed than outpatient,if need blood pressure medica tion adjustment. Patient is refusing to go to rehab-so will arrange home services will PT. Follow-up with PCP out patiently Above management discussed with the patient and patient's family in detail length-patient does not want to go to rehab, family is willing to take care of patient at home 18/12 , in addition patient will go home with [facility] PT. Time Spent with Patient Time attestation: Total time spent providing and/or coordinating discharge services: Discharge coordination time: Greater than 30 minutes Quality: Safe Use of Opioids Does Pt have an Active Cancer Diagnosis on the Problem List?: No Quality: Stroke Does the patient have a stroke diagnosis?: No Physical Exam Vital Signs: Vital Signs: Last Vital Signs Temp 97.0 F 02/06/22 15:55 Pulse 59 02/06/22 15:55 Resp 18 02/06/22 15:55 BP 100/57 L 02/06/22 15:55 Pulse Ox 97 02/06/22 15:55 O2 Del Method 02/06/22 15:55 BMI result Body Mass Index 31.2 Appearance: Alert.? Oriented X3.? not in distress.. cvs: rrr, [id number]. res: clear to auscultation ,no rhonchii or wheezing abd: no rebound or guarding ,nt, bs present. ext pulses present , no cyanosis . neuro: axo3 , nonfocal, dizziness imprved significantly. DS: Data Data Completed and Pending Labs on day of discharge: Laboratory Results - last 24 hr 02/06/22 07:33 PT 21.7 H INR 1.8 H Additional Comments Additional comments: ?MR/MR angio neck wo/w con IMPRESSION: ? 1.? No arterial high-grade stenosis or large vessel occlusion in the head or neck. ? 2.? Less than 50% stenosis of the right internal carotid artery origin, likely on the basis of atherosclerotic disease. CT/CT abdomen pelvis wo IV con IMPRESSION: ? 1. No evidence of bowel obstruction or other acute intra-abdominal process. 2. Status post gastric bypass. 3. Additional chronic ancillary findings, as described.? Discharge Plan Discharge Patient Disposition: Home Health Service Discharge Diagnosis: dizziness,Persistent nausea vomiting , hypertension urgency. Referrals: Henri SHULTZ [Outside] - 1 Week Erik Farrar MD [Primary Care Provider] - 1 Week Discharge Medications: New warfarin [Jantoven] 4 mg Tablet 4 mg PO SUTUTHSA@1800 Qty: 15 0RF loperamide 2 mg Capsule 2 mg PO Q4H PRN (Reason: Diarrhea) Qty: 10 0RF meclizine 25 mg Tablet 25 mg PO Q6H PRN (Reason: dizziness) Qty: 10 0RF ondansetron HCl 4 mg tablet 4 mg PO Q8H PRN (Reason: nausea and vomiting) 4 Days Qty: 10 0RF Continued Kevzara 150 mg/1.14 mL pen injector 150 mg subcut Q2W Qty: 2.28 1RF warfarin 3 mg Tablet 6 mg PO MOWEFR@1800 calcium carbonate [Calcium 600] 600 mg calcium (1,500 mg) Tablet 600 mg PO DAILY PreserVision AREDS-2 250-90-40-1 mg Capsule 1 tab PO BID methotrexate sodium 2.5 mg tablet 10 mg PO FR@0900 clotrimazole 1 % cream 1 appl topical DAILY PRN (Reason: Rash) albuterol sulfate [ProAir HFA] 90 mcg/actuation HFA aerosol inhaler 2 puff inhalation Q4H PRN (Reason: Asthma) enalapril maleate 20 mg tablet 20 mg PO BID temazepam 30 mg capsule 30 mg PO BEDTIME PRN (Reason: Insomnia) pantoprazole 40 mg tablet,delayed release (DR/EC) 40 mg PO DAILY@0630 warfarin 3 mg tablet 3 mg PO DAILY Qty: 90 0RF Protocol: Dose Management Condition: Sunday (Week One) Dose/Route: 6 mg Instruction: 2 x 3 mg tablets Condition: Sunday Dose/Route: 3 mg Instruction: 1 x 3 mg tablet Condition: Sunday Dose/Route: 6 mg Instruction: 2 x 3 mg tablets Condition: Sunday Dose/Route: 3 mg Instruction: 1 x 3 mg tablet Condition: Dose/Route: 6 mg Instruction: 2 x 3 mg tablets Condition: Sunday Dose/Route: 3 mg Instruction: 1 x 3 mg tablet Condition: Sunday Dose/Route: 6 mg Instruction: 2 x 3 mg tablets Condition: Sunday (Week Two) Dose/Route: 6 mg Instruction: 2 x 3 mg tablets Condition: Sunday Dose/Route: 3 mg Instruction: 1 x 3 mg tablet Condition: Sunday Dose/Route: 6 mg Instruction: 2 x 3 mg tablets Condition: Sunday Dose/Route: 3 mg Instruction: 1 x 3 mg tablet Condition: Dose/Route: 6 mg Instruction: 2 x 3 mg tablets Condition: Sunday Dose/Route: 3 mg Instruction: 1 x 3 mg tablet Condition: Sunday Dose/Route: 6 mg Instruction: 2 x 3 mg tablets Protocol Text: Adjustment Start Date: Sunday01/31/22 INR Value: 3.1 INR Date: 01/31/22 Recheck Date: 02/07/22 Additional Instructions: cont reg dosing eat dark greens to lower inr Rx Instructions: 6MG X3, 3MG X4 metoprolol succinate 50 mg tablet extended release 24 hr 50 mg PO DAILY hydrochlorothiazide 12.5 mg tablet 12.5 mg PO DAILY atorvastatin 20 mg tablet 20 mg PO BEDTIME multivitamin Tablet 1 tab PO DAILY duloxetine 60 mg capsule,delayed release(DR/EC) 60 mg PO DAILY lorazepam 0.5 mg tablet 0.5 mg PO DAILY PRN (Reason: Anxiety) folic acid 1 mg tablet 1 mg PO DAILY Qty: 90 1RF diclofenac sodium 1 % gel 4 g topical BID Discontinued warfarin 3 mg Tablet 3 mg PO SUTUTHSA@1800 Discharge Orders: Discharge Order (Routine); Ordered 02/06/22 Ordered By: Koko Hearn Diet: Advance to usual diet Activity on Discharge: As tolerated Stand Alone Forms: Patient Portal Discharge page Care Plan Goals: Patient came to the hospital because of dizziness as well as nausea vomiting and abdominal pain. Dizziness is possible vertiginous type-workup including CT scan of head and MRA seems to be fine-with symptomatic treatment of antiemetic as well as meclizine patient seems to be improved significantly-may go home with the services he since patient does not want to go to rehab. Persistent nausea and vomiting: Responded well to antiemetics and supportive care with hydration now patient started tolerated diet , encouraged for hydration. Patient also had abdominal pain and some diarrhea episodes: Seen by GI for above persistent nausea vomiting as well as abdominal pain: Thought to be re lated to possible a table bowel syndrome, recommended to add loperamide for p.r.n. for diarrhea. Patient has history of DVT: INR is 1.8 to 1.9 range, adjusted Coumadin. Monitor INR outpatient. htn urgency: Her blood pressure seems to be stable with her home medication probably initial elevated blood pressure due to due to pain and also persistent nausea vomiting as well as anxious-will continue home medication regimen for now, monitor blood pressure out patiently and follow-up with PCP if needed for further blood pressure medication adjustment can be done out patiently Health Concerns: As above. If patient well significant abdominal pain or persistent nausea vomiting or worsening dizziness please go to nearest emergency room for further evaluation. Plan of Treatment: Please continue as needed meclizine for dizziness. Monitor INR outpatient before DVT and warfarin adjusted. Monitor blood pressure if needed than outpatient,if need blood pressure medication adjustment. Patient is refusing to go to rehab-so will arrange home services will PT. Follow-up with PCP out patiently Assessment: As above.
[2022-02-06] MEDS: Warfarin Sodium 6 MG TABLET PO (17:17)
[2022-02-06 19:39] VITALS: BP 107/56; PULSE 60; RESP 18; TEMP 36.8; O2SAT 99
[2022-02-06] MEDS: Atorvastatin Calcium 20 MG TABLET PO (22:32)
[2022-02-07] VITALS: BP 116/62; PULSE 59; RESP 18; TEMP 36.6; O2SAT 100
[2022-02-07] MEDS: Temazepam 15 MG CAPSULE 30 MG PO (00:26)
[2022-02-07 04:00] VITALS: BP 132/61; PULSE 54; RESP 18; TEMP 36.4; O2SAT 98
[2022-02-07] MEDS: Omeprazole 40 MG CAPSULE.DR PO (05:54)
[2022-02-07] MEDS: Meclizine HCl 25 MG TABLET PO (05:55)
[2022-02-07 07:39] VITALS: BP 110/61; PULSE 57; RESP 18; TEMP 36.7; O2SAT 99
--- NOTE | 2022-02-07 09:19 | MHC.CM.PN ---
Addendum entered by Teresa Gonzáles 02/07/22 10:14: PRIOR TO END OF CONVERSATION, JIMENA INFORMED THAT IF NO FAMILY TRANSPORT IS HERE BY [place], CASE MANAGEMENT CAN SEND PATIENT HOME IN AN AMBULANCE TODAY PATIENT WANTS TO RETURN HOME Addendum entered by Teresa Gonzáles 02/07/22 09:31: DAUGHTER CALLED THIS WAGON DRIVER SALESPERSON BACK STATING THAT LAST NIGHT A DOCTOR TOLD HER THAT PATIENT WAS NOT READY FOR DISCHARGE THIS WAGON DRIVER SALESPERSON REMINDED DAUGHTER (JIMENA) THAT THE DOCTOR WAS WITH T/W WHEN THE CONVERSATION WAS HAD FOR PATIENT TO DC LAST NIGHT, THAT IF THE BROTHER [facility] COULD NOT TRANSPORT PATIENT HOME, THAT JIMENA WOULD. JIMENA STATES 'THERE IS A MISCOMMUNICATION THIS NOTED CONVERSATION HEARD BY [place] [id number] MATERIAL MANAGER Original Note: DETAILED MESSAGE LEFT FOR DAUGHTERJIMENA ([phone]) REMINDING HER THAT PLAN WAS FOR HER BROTHER TO TRANSPORT PATIENT HOME LAST NIGHT AND IF BROTHER WAS UNABLE, JIMENA WOULD TRANSPORT. REQUEST FOR CALL BACK TO DISCUSS SAFE TRANSPORTATION HOME
[2022-02-07] MEDS: Enalapril Maleate 10 MG TABLET 20 MG PO (10:35)
[2022-02-07] MEDS: Folic Acid 1 MG TABLET PO (10:35)
[2022-02-07] MEDS: Gabapentin 100 MG CAPSULE PO (10:35)
[2022-02-07] MEDS: Multivitamin TABLET 1 TAB PO (10:35)
[2022-02-07] MEDS: DULoxetine HCl 60 MG CAPSULE.DR PO (10:36)
[2022-02-07] MEDS: Lidocaine 4 % Patch ADH..PATCH 1 PATCH TRANSDERMA (10:36)
[2022-02-07] MEDS: Dicyclomine HCl 10 MG CAPSULE PO (10:36)
[2022-02-07] MEDS: hydroCHLOROthiazide 12.5 MG TABLET PO (10:36)
[2022-02-07] MEDS: Metoprolol Succinate ER 50 MG TAB.ER.24H PO (10:36)
[2022-02-07] MEDS: 0.9 % Sodium Chloride Flush 3 ML SYRINGE IVFLUSH (10:37)
[2022-02-07 11:09] VITALS: BP 110/61; PULSE 57; O2SAT 99
== END 2022-02-07 11:45 | disposition home health service (06) ==
LOC: HO.ED 17:10 → HO.EDOVER 19:49 → HO.IMC 02-01 12:06 → HO.S3 02-05 15:13
PROVIDERS: Physician Assistant Medical; Admitting Provider Internal Medicine; Emergency Provider Emergency Medicine; PCP Internal Medicine; Visit Provider Internal Medicine
DX: I16.1 Hypertensive emergency (principal); R42 Dizziness and giddiness; R11.2 Nausea with vomiting, unspecified; R10.32 Left lower quadrant pain; Z20.822 Contact with and (suspected) exposure to COVID-19; I10 Essential (primary) hypertension; J45.909 Unspecified asthma, uncomplicated; R60.0 Localized edema; M05.9 Rheumatoid arthritis with rheumatoid factor, unspecified; K21.9 Gastro-esophageal reflux disease without esophagitis; Z86.711 Personal history of pulmonary embolism; Z79.01 Long term (current) use of anticoagulants; Z79.899 Other long term (current) drug therapy; Z79.02 Long term (current) use of antithrombotics/antiplatelets
CPT/HCPCS: 36415; 70450; 70546; 70549; 70551; 74176; 80048; 80076; 81003; 82550; 82947; 83605; 83735; 84443; 84484; 85014; 85018; 85025; 85027; 85610; 85730; 87635; 93005; 96361; 96374; 96375; 96376; 97162; 97166; 97530; 97535; 99218; 99285; A9585; J2405; J2765

== ENCOUNTER → 2022-02-10 11:45 | Outpatient (BNVA) | payer OTHER, SELFPAY | PROVIDERS: PCP Internal Medicine; Visit Provider Internal Medicine | DX: I26.99 Other pulmonary embolism without acute cor pulmonale (principal); Z79.01 Long term (current) use of anticoagulants; Z51.81 Encounter for therapeutic drug level monitoring | CPT/HCPCS: Q3014 ==

== ENCOUNTER → 2022-02-21 13:33 | Outpatient (BNVA) | payer OTHER, SELFPAY | PROVIDERS: PCP Internal Medicine; Visit Provider Internal Medicine | DX: I26.99 Other pulmonary embolism without acute cor pulmonale (principal); Z79.01 Long term (current) use of anticoagulants; Z51.81 Encounter for therapeutic drug level monitoring | CPT/HCPCS: Q3014 ==

== ENCOUNTER → 2022-03-09 11:36 | Outpatient (BNVA) | payer OTHER, SELFPAY | PROVIDERS: PCP Internal Medicine; Visit Provider Internal Medicine | DX: I26.99 Other pulmonary embolism without acute cor pulmonale (principal); Z79.01 Long term (current) use of anticoagulants; Z51.81 Encounter for therapeutic drug level monitoring | CPT/HCPCS: Q3014 ==

== ENCOUNTER → 2022-03-14 10:36 | Outpatient (BNVA) | payer OTHER, SELFPAY | PROVIDERS: PCP Internal Medicine; Visit Provider Nurse Practitioner Family | DX: M05.9 Rheumatoid arthritis with rheumatoid factor, unspecified (principal); M81.0 Age-related osteoporosis without current pathological fracture; R10.9 Unspecified abdominal pain; M25.552 Pain in left hip; Z79.899 Other long term (current) drug therapy | CPT/HCPCS: 99212 ==

== ENCOUNTER → 2022-03-16 10:43 | Outpatient (BNVA) | payer OTHER, SELFPAY | PROVIDERS: PCP Internal Medicine; Visit Provider Internal Medicine | DX: I26.99 Other pulmonary embolism without acute cor pulmonale (principal); Z79.01 Long term (current) use of anticoagulants; Z51.81 Encounter for therapeutic drug level monitoring | CPT/HCPCS: 85610; 99211 ==

== ENCOUNTER → 2022-05-17 11:59 | Outpatient (BNVA) | payer OTHER, SELFPAY | PROVIDERS: PCP Internal Medicine; Visit Provider Internal Medicine | DX: Z79.01 Long term (current) use of anticoagulants (principal) ==

== ENCOUNTER → 2022-05-24 14:45 | Outpatient (BNVA) | payer OTHER, SELFPAY | PROVIDERS: PCP Internal Medicine; Visit Provider Internal Medicine | DX: Z79.01 Long term (current) use of anticoagulants (principal) ==

== ENCOUNTER 2022-05-25 11:13 | Outpatient (REF) | payer OTHER, SELFPAY ==
[2022-05-25 11:36] LABS: MANUAL DIFF FLAG NO
[2022-05-25 12:11] LABS: Basophils Percent Auto 0.5 % (0-2); Eosinophils Absolute Auto 0.2 X10*3/uL (0.0-0.4); Eosinophils Percent Auto 5.9 % (0-4); Hematocrit 40.4 % (37.0-47.0); Hemoglobin 12.4 g/dl (12.0-16.0); Imm Gran Abs Auto 0.01 X10*3/uL (0.00-0.03); Imm Gran Pct Auto 0.3 % (0.0-0.4); Lymphocytes Percent Auto 53.2 % (20-40); Mean Corpuscular HGB Conc 30.7 g/dl (31.0-35.0); Mean Corpuscular Hemoglobin 27.1 pg (27.0-33.0); Mean Corpuscular Volume 88.2 fL (80.0-98.0); Mean Platelet Volume 10.3 fL (9.4-12.3); Monocytes Absolute Auto 0.4 X10*3/uL (0.1-1.2); Monocytes Percent Auto 9.3 % (2-11); Neutrophils Absolute Auto 1.2 x10*3/uL (2.0-8.3); Neutrophils Percent Auto 30.8 % (45-73); Platelet Count 270 X10*3/uL (160-400); Red Blood Count 4.58 X10*6/uL (4.20-5.50); Red Cell Distribution Width 15.4 % (11.0-16.0); White Blood Count 3.8 X10*3/uL (4.8-10.8)
[2022-05-25 12:43] LABS: Alanine Aminotransferase 14 U/L (0-31); Albumin Level 3.8 g/dL (3.5-5.0); Alkaline Phosphatase 68 U/L (39-117); Anion Gap 10 (12-20); Aspartate Amino Transferase 25 U/L (5-31); Bilirubin Total 0.3 mg/dL (0.0-1.0); Blood Urea Nitrogen 13 mg/dL (9-16); C Reactive Protein 0.12 mg/dL (< or = 0.50); Calcium 9.2 mg/dL (8.4-10.2); Carbon Dioxide 27 mmol/L (22-29); Chloride 107 mmol/L (96-108); Estimated Glomerular Filt Rate > 60; Glucose Random 75 mg/dL (60-115); Potassium 4.4 mmol/L (3.3-5.1); Sodium 140 mmol/L (135-145); Total Protein 6.6 g/dL (6.5-8.0)
[2022-05-25 12:50] LABS: Erythrocyte Sedimentation Rate 7 MM/HR (0-20)
[2022-05-25 13:05] LABS: Vitamin D 25-OH Total 20.6 ng/mL (>30)
== END 2022-05-25 11:14 | disposition home or self-care (01) ==
LOC: HO.LAB 11:13
PROVIDERS: PCP Internal Medicine; Visit Provider Nurse Practitioner Family
DX: M05.9 Rheumatoid arthritis with rheumatoid factor, unspecified (principal); M81.0 Age-related osteoporosis without current pathological fracture; Z79.899 Other long term (current) drug therapy
CPT/HCPCS: 36415; 80053; 82306; 85025; 85652; 86140

== ENCOUNTER 2022-05-31 11:45 | Outpatient (REF) | payer OTHER, SELFPAY ==
[2022-05-31 12:05] LABS: MANUAL DIFF FLAG NO
[2022-05-31 12:23] LABS: Basophils Percent Auto 0.8 % (0-2); Eosinophils Absolute Auto 0.3 X10*3/uL (0.0-0.4); Eosinophils Percent Auto 8.5 % (0-4); Hematocrit 40.9 % (37.0-47.0); Hemoglobin 12.5 g/dl (12.0-16.0); Imm Gran Abs Auto 0.01 X10*3/uL (0.00-0.03); Imm Gran Pct Auto 0.3 % (0.0-0.4); Lymphocytes Absolute Auto 1.9 X10*3/uL (1.2-4.9); Lymphocytes Percent Auto 48.9 % (20-40); Mean Corpuscular HGB Conc 30.6 g/dl (31.0-35.0); Mean Corpuscular Hemoglobin 26.7 pg (27.0-33.0); Mean Corpuscular Volume 87.2 fL (80.0-98.0); Mean Platelet Volume 9.9 fL (9.4-12.3); Monocytes Absolute Auto 0.4 X10*3/uL (0.1-1.2); Monocytes Percent Auto 10.6 % (2-11); Neutrophils Absolute Auto 1.2 x10*3/uL (2.0-8.3); Neutrophils Percent Auto 30.9 % (45-73); Platelet Count 303 X10*3/uL (160-400); Red Blood Count 4.69 X10*6/uL (4.20-5.50); Red Cell Distribution Width 15.4 % (11.0-16.0); White Blood Count 3.8 X10*3/uL (4.8-10.8)
[2022-05-31 12:31] LABS: D Dimer High Sensitivity < 150 NG/ML
[2022-05-31 12:53] LABS: Alanine Aminotransferase 14 U/L (0-31); Albumin Level 3.8 g/dL (3.5-5.0); Alkaline Phosphatase 70 U/L (39-117); Anion Gap 9 (12-20); Aspartate Amino Transferase 24 U/L (5-31); Bilirubin Total 0.4 mg/dL (0.0-1.0); Blood Urea Nitrogen 12 mg/dL (9-16); Calcium 9.8 mg/dL (8.4-10.2); Carbon Dioxide 30 mmol/L (22-29); Chloride 107 mmol/L (96-108); Estimated Glomerular Filt Rate > 60; Glucose Random 74 mg/dL (60-115); Potassium 4.5 mmol/L (3.3-5.1); Sodium 141 mmol/L (135-145); Total Protein 6.6 g/dL (6.5-8.0)
== END 2022-05-31 11:46 | disposition home or self-care (01) ==
LOC: HO.LAB 11:45
PROVIDERS: Internal Medicine Medical Oncology; PCP Internal Medicine; Visit Provider Nurse Practitioner Family
DX: I26.99 Other pulmonary embolism without acute cor pulmonale (principal); M05.9 Rheumatoid arthritis with rheumatoid factor, unspecified; D70.9 Neutropenia, unspecified
CPT/HCPCS: 36415; 80053; 85025; 85379

== ENCOUNTER → 2022-06-02 09:00 | Outpatient (BNVA) | payer OTHER, SELFPAY | PROVIDERS: PCP Internal Medicine; Visit Provider Nurse Practitioner Family | DX: M05.9 Rheumatoid arthritis with rheumatoid factor, unspecified (principal); M81.0 Age-related osteoporosis without current pathological fracture; R10.9 Unspecified abdominal pain; Z79.899 Other long term (current) drug therapy | CPT/HCPCS: Q3014 ==

== ENCOUNTER 2022-06-06 13:05 | Outpatient (REF) | payer OTHER, SELFPAY ==
[2022-06-06 13:22] LABS: MANUAL DIFF FLAG NO
[2022-06-06 15:18] LABS: Basophils Percent Auto 0.9 % (0-2); Eosinophils Absolute Auto 0.2 X10*3/uL (0.0-0.4); Eosinophils Percent Auto 7.3 % (0-4); Hematocrit 40.9 % (37.0-47.0); Hemoglobin 12.5 g/dl (12.0-16.0); Imm Gran Abs Auto 0.02 X10*3/uL (0.00-0.03); Imm Gran Pct Auto 0.6 % (0.0-0.4); Lymphocytes Absolute Auto 1.5 X10*3/uL (1.2-4.9); Lymphocytes Percent Auto 47.6 % (20-40); Mean Corpuscular HGB Conc 30.6 g/dl (31.0-35.0); Mean Corpuscular Hemoglobin 27.2 pg (27.0-33.0); Mean Corpuscular Volume 88.9 fL (80.0-98.0); Mean Platelet Volume 10.5 fL (9.4-12.3); Monocytes Absolute Auto 0.4 X10*3/uL (0.1-1.2); Monocytes Percent Auto 13.9 % (2-11); Neutrophils Absolute Auto 0.9 x10*3/uL (2.0-8.3); Neutrophils Percent Auto 29.7 % (45-73); Platelet Count 267 X10*3/uL (160-400); SCAN SMEAR FLAG 1; White Blood Count 3.2 X10*3/uL (4.8-10.8)
[2022-06-06 16:04] LABS: Erythrocyte Sedimentation Rate 7 MM/HR (0-20)
[2022-06-06 16:26] LABS: Alanine Aminotransferase 16 U/L (0-31); Aspartate Amino Transferase 29 U/L (5-31); C Reactive Protein 0.13 mg/dL (< or = 0.50); Estimated Glomerular Filt Rate > 60
== END 2022-06-06 13:06 | disposition home or self-care (01) ==
LOC: HO.LAB 13:05
PROVIDERS: PCP Internal Medicine; Visit Provider Nurse Practitioner Family
DX: M06.9 Rheumatoid arthritis, unspecified (principal); Z79.899 Other long term (current) drug therapy
CPT/HCPCS: 36415; 82565; 84450; 84460; 85025; 85652; 86140

== ENCOUNTER → 2022-06-07 13:01 | Outpatient (BNVA) | payer OTHER, SELFPAY | PROVIDERS: PCP Internal Medicine; Visit Provider Internal Medicine | DX: Z79.01 Long term (current) use of anticoagulants (principal) ==

== ENCOUNTER 2022-06-12 11:32 | Outpatient (REF) | payer OTHER, SELFPAY ==
[2022-06-12 11:48] LABS: MANUAL DIFF FLAG NO
[2022-06-12 12:12] LABS: Basophils Percent Auto 0.9 % (0-2); Eosinophils Absolute Auto 0.2 X10*3/uL (0.0-0.4); Eosinophils Percent Auto 5.7 % (0-4); Hematocrit 39.7 % (37.0-47.0); Hemoglobin 12.2 g/dl (12.0-16.0); Lymphocytes Absolute Auto 1.7 X10*3/uL (1.2-4.9); Lymphocytes Percent Auto 49.4 % (20-40); Mean Corpuscular HGB Conc 30.7 g/dl (31.0-35.0); Mean Corpuscular Hemoglobin 26.9 pg (27.0-33.0); Mean Corpuscular Volume 87.6 fL (80.0-98.0); Mean Platelet Volume 10.2 fL (9.4-12.3); Monocytes Absolute Auto 0.3 X10*3/uL (0.1-1.2); Monocytes Percent Auto 9.8 % (2-11); Neutrophils Absolute Auto 1.2 x10*3/uL (2.0-8.3); Neutrophils Percent Auto 34.2 % (45-73); Platelet Count 265 X10*3/uL (160-400); Red Blood Count 4.53 X10*6/uL (4.20-5.50); White Blood Count 3.4 X10*3/uL (4.8-10.8)
== END 2022-06-12 11:33 | disposition home or self-care (01) ==
LOC: HO.LAB 11:32
PROVIDERS: PCP Internal Medicine; Visit Provider Nurse Practitioner Family
DX: D70.9 Neutropenia, unspecified (principal)
CPT/HCPCS: 36415; 85025

== ENCOUNTER → 2022-06-14 12:58 | Outpatient (BNVA) | payer OTHER, SELFPAY | PROVIDERS: PCP Internal Medicine; Visit Provider Internal Medicine | DX: Z79.01 Long term (current) use of anticoagulants (principal) ==

== ENCOUNTER 2022-06-19 13:46 | Outpatient (REF) | payer OTHER, SELFPAY ==
[2022-06-19 14:01] LABS: MANUAL DIFF FLAG NO
[2022-06-19 14:19] LABS: Basophils Percent Auto 1.1 % (0-2); Eosinophils Absolute Auto 0.2 X10*3/uL (0.0-0.4); Eosinophils Percent Auto 6.2 % (0-4); Hemoglobin 12.7 g/dl (12.0-16.0); Lymphocytes Absolute Auto 1.9 X10*3/uL (1.2-4.9); Lymphocytes Percent Auto 53.3 % (20-40); Mean Platelet Volume 10.4 fL (9.4-12.3); Monocytes Absolute Auto 0.4 X10*3/uL (0.1-1.2); Neutrophils Percent Auto 28.4 % (45-73); Platelet Count 232 X10*3/uL (160-400); Red Blood Count 4.71 X10*6/uL (4.20-5.50); Red Cell Distribution Width 14.6 % (11.0-16.0); White Blood Count 3.5 X10*3/uL (4.8-10.8)
[2022-06-19 14:45] LABS: C Reactive Protein 0.13 mg/dL (< or = 0.50)
[2022-06-19 14:57] LABS: Erythrocyte Sedimentation Rate 7 MM/HR (0-20)
== END 2022-06-19 13:47 | disposition home or self-care (01) ==
LOC: HO.LAB 13:46
PROVIDERS: PCP Internal Medicine; Visit Provider Nurse Practitioner Family
DX: M05.9 Rheumatoid arthritis with rheumatoid factor, unspecified (principal); Z79.899 Other long term (current) drug therapy
CPT/HCPCS: 36415; 85025; 85652; 86140

== ENCOUNTER → 2022-06-21 13:35 | Outpatient (BNVA) | payer OTHER, SELFPAY | PROVIDERS: PCP Internal Medicine; Visit Provider Internal Medicine | DX: Z79.01 Long term (current) use of anticoagulants (principal) ==

== ENCOUNTER → 2022-06-23 11:55 | Outpatient (BNVA) | payer OTHER, SELFPAY | PROVIDERS: PCP Internal Medicine; Visit Provider Internal Medicine | DX: Z79.01 Long term (current) use of anticoagulants (principal) ==

== ENCOUNTER → 2022-06-26 15:13 | Outpatient (BNVA) | payer OTHER, SELFPAY | PROVIDERS: PCP Internal Medicine; Visit Provider Internal Medicine | DX: Z79.01 Long term (current) use of anticoagulants (principal) ==

== ENCOUNTER → 2022-06-27 13:00 | Outpatient (BNVA) | payer OTHER, SELFPAY | PROVIDERS: PCP Internal Medicine; Visit Provider Nurse Practitioner Family | DX: M05.9 Rheumatoid arthritis with rheumatoid factor, unspecified (principal); Z79.899 Other long term (current) drug therapy | CPT/HCPCS: 99212 ==

== ENCOUNTER 2022-06-29 12:33 | Outpatient (REF) | payer OTHER, SELFPAY ==
--- NOTE | ~2022-06-29 | XR_ITS ---
EXAMINATION: XR HAND/WRIST, RIGHT CLINICAL INFORMATION: Rheumatoid arthritis with rheumatoid factor. COMPARISON: Radiographs dated 10/24/2019. TECHNIQUE: PA, lateral, oblique, and scaphoid views of the right hand and wrist. FINDINGS: There is bony demineralization. There is mild osteoarthritic change of the first and fifth metacarpophalangeal joints. There is moderate osteoarthritic change of the first carpometacarpal joint. There is some narrowing of the radiocarpal interval. No fracture or dislocation is seen. There is no abnormal bone erosion. The ulnar styloid is intact. There are atherosclerotic calcifications. XR/XR hand wrist LT IMPRESSION: There are osteoarthritic changes of the left hand and wrist, as detailed. There is no abnormal bone erosion. No fracture or dislocation is seen. EXAMINATION: XR HAND/WRIST, LEFT CLINICAL INFORMATION: As above. COMPARISON: Radiographs dated 10/24/2019. TECHNIQUE: PA, lateral, oblique, and scaphoid views of the left hand and wrist. FINDINGS: There is mild bony demineralization. There is mild osteoarthritic change of the interphalangeal joint of the thumb. There is moderately severe osteoarthritic change of the fifth distal interphalangeal joint. There is mild osteoarthritic change of the fifth proximal interphalangeal joint. There is moderately severe osteoarthritic change of the first carpometacarpal joint. No fracture or dislocation is seen. The ulnar styloid is intact. There is no abnormal bone erosion. There are atherosclerotic calcifications. IMPRESSION: There are osteoarthritic changes of the left hand and wrist, as detailed. No abnormal bone erosion is seen. There is no fracture or dislocation.
--- NOTE | ~2022-06-29 | XR_ITS ---
EXAMINATION: XR FOOT, RIGHT CLINICAL INFORMATION: Rheumatoid arthritis with rheumatoid factor. COMPARISON: None TECHNIQUE: AP, lateral, and oblique views of the right foot. FINDINGS: There is bony demineralization. No fracture, dislocation or right ankle joint effusion is seen. There is a moderate posterior calcaneal spur. There are degenerative changes of the dorsal midfoot. No abnormal bone erosion is noted. There are atherosclerotic calcifications. No focal soft tissue swelling, gas or foreign body is seen. XR/XR foot RT 2V IMPRESSION: 1. No fracture, dislocation or right ankle joint effusion is seen. 2. There is a moderate right calcaneal posterior spur. EXAMINATION: XR FOOT, LEFT CLINICAL INFORMATION: Rheumatoid arthritis with rheumatoid factor. COMPARISON: None TECHNIQUE: AP, lateral, and oblique views of the left foot. FINDINGS: There is bony demineralization. No fracture, dislocation or left ankle joint effusion is seen. There is a small plantar calcaneal spur. No abnormal bone erosion is seen. There are atherosclerotic calcifications. No focal soft tissue swelling, gas or foreign body is seen. IMPRESSION: 1. No fracture, dislocation or left ankle joint effusion is seen. 2. There is a small left calcaneal plantar spur.
--- NOTE | ~2022-06-29 | XR_ITS ---
EXAMINATION: XR FOOT, RIGHT CLINICAL INFORMATION: Rheumatoid arthritis with rheumatoid factor. COMPARISON: None TECHNIQUE: AP, lateral, and oblique views of the right foot. FINDINGS: There is bony demineralization. No fracture, dislocation or right ankle joint effusion is seen. There is a moderate posterior calcaneal spur. There are degenerative changes of the dorsal midfoot. No abnormal bone erosion is noted. There are atherosclerotic calcifications. No focal soft tissue swelling, gas or foreign body is seen. XR/XR foot LT 2V IMPRESSION: 1. No fracture, dislocation or right ankle joint effusion is seen. 2. There is a moderate right calcaneal posterior spur. EXAMINATION: XR FOOT, LEFT CLINICAL INFORMATION: Rheumatoid arthritis with rheumatoid factor. COMPARISON: None TECHNIQUE: AP, lateral, and oblique views of the left foot. FINDINGS: There is bony demineralization. No fracture, dislocation or left ankle joint effusion is seen. There is a small plantar calcaneal spur. No abnormal bone erosion is seen. There are atherosclerotic calcifications. No focal soft tissue swelling, gas or foreign body is seen. IMPRESSION: 1. No fracture, dislocation or left ankle joint effusion is seen. 2. There is a small left calcaneal plantar spur.
--- NOTE | ~2022-06-29 | XR_ITS ---
EXAMINATION: XR HAND/WRIST, RIGHT CLINICAL INFORMATION: Rheumatoid arthritis with rheumatoid factor. COMPARISON: Radiographs dated 10/24/2019. TECHNIQUE: PA, lateral, oblique, and scaphoid views of the right hand and wrist. FINDINGS: There is bony demineralization. There is mild osteoarthritic change of the first and fifth metacarpophalangeal joints. There is moderate osteoarthritic change of the first carpometacarpal joint. There is some narrowing of the radiocarpal interval. No fracture or dislocation is seen. There is no abnormal bone erosion. The ulnar styloid is intact. There are atherosclerotic calcifications. XR/XR hand wrist RT IMPRESSION: There are osteoarthritic changes of the left hand and wrist, as detailed. There is no abnormal bone erosion. No fracture or dislocation is seen. EXAMINATION: XR HAND/WRIST, LEFT CLINICAL INFORMATION: As above. COMPARISON: Radiographs dated 10/24/2019. TECHNIQUE: PA, lateral, oblique, and scaphoid views of the left hand and wrist. FINDINGS: There is mild bony demineralization. There is mild osteoarthritic change of the interphalangeal joint of the thumb. There is moderately severe osteoarthritic change of the fifth distal interphalangeal joint. There is mild osteoarthritic change of the fifth proximal interphalangeal joint. There is moderately severe osteoarthritic change of the first carpometacarpal joint. No fracture or dislocation is seen. The ulnar styloid is intact. There is no abnormal bone erosion. There are atherosclerotic calcifications. IMPRESSION: There are osteoarthritic changes of the left hand and wrist, as detailed. No abnormal bone erosion is seen. There is no fracture or dislocation.
== END 2022-06-29 12:34 | disposition home or self-care (01) ==
LOC: HO.XRAY 12:33
PROVIDERS: PCP Internal Medicine; Visit Provider Nurse Practitioner Family
DX: M05.9 Rheumatoid arthritis with rheumatoid factor, unspecified (principal)
CPT/HCPCS: 73110; 73130; 73620

== ENCOUNTER → 2022-06-30 10:43 | Outpatient (BNVA) | payer OTHER, SELFPAY | PROVIDERS: PCP Internal Medicine; Visit Provider Internal Medicine | DX: Z79.01 Long term (current) use of anticoagulants (principal) ==

== ENCOUNTER 2022-07-04 15:07 | Outpatient (REF) | payer OTHER, SELFPAY ==
[2022-07-04 16:34] LABS: Erythrocyte Sedimentation Rate 14 MM/HR (0-20)
[2022-07-04 16:35] LABS: Alanine Aminotransferase 15 U/L (0-31); Aspartate Amino Transferase 24 U/L (5-31); C Reactive Protein 0.82 mg/dL (< or = 0.50); Estimated Glomerular Filt Rate > 60
== END 2022-07-04 15:08 | disposition home or self-care (01) ==
LOC: HO.LAB 15:07
PROVIDERS: Absent Provider Internal Medicine Medical Oncology; PCP Internal Medicine; Visit Provider Nurse Practitioner Family
DX: M05.9 Rheumatoid arthritis with rheumatoid factor, unspecified (principal); R42 Dizziness and giddiness; Z79.899 Other long term (current) drug therapy
CPT/HCPCS: 36415; 82565; 84450; 84460; 85652; 86140

== ENCOUNTER → 2022-07-05 14:04 | Outpatient (BNVA) | payer OTHER, SELFPAY | PROVIDERS: PCP Internal Medicine; Visit Provider Internal Medicine | DX: Z79.01 Long term (current) use of anticoagulants (principal) ==

== ENCOUNTER → 2022-07-07 14:02 | Outpatient (BNVA) | payer OTHER, SELFPAY | PROVIDERS: PCP Internal Medicine; Visit Provider Nurse Practitioner Family | DX: M05.9 Rheumatoid arthritis with rheumatoid factor, unspecified (principal); M81.0 Age-related osteoporosis without current pathological fracture | CPT/HCPCS: 99212 ==

== ENCOUNTER 2022-07-10 12:37 | Outpatient (REF) | payer OTHER, SELFPAY ==
[2022-07-10 12:52] LABS: MANUAL DIFF FLAG NO
[2022-07-10 13:06] LABS: Basophils Percent Auto 0.4 % (0-2); Eosinophils Percent Auto 0.1 % (0-4); Hematocrit 42.8 % (37.0-47.0); Hemoglobin 13.3 g/dl (12.0-16.0); Imm Gran Abs Auto 0.03 X10*3/uL (0.00-0.03); Imm Gran Pct Auto 0.4 % (0.0-0.4); Lymphocytes Absolute Auto 1.9 X10*3/uL (1.2-4.9); Lymphocytes Percent Auto 25.6 % (20-40); Mean Corpuscular HGB Conc 31.1 g/dl (31.0-35.0); Mean Corpuscular Hemoglobin 26.5 pg (27.0-33.0); Mean Corpuscular Volume 85.4 fL (80.0-98.0); Mean Platelet Volume 9.8 fL (9.4-12.3); Monocytes Absolute Auto 0.4 X10*3/uL (0.1-1.2); Monocytes Percent Auto 4.9 % (2-11); Neutrophils Absolute Auto 5.1 x10*3/uL (2.0-8.3); Neutrophils Percent Auto 68.6 % (45-73); Platelet Count 346 X10*3/uL (160-400); Red Blood Count 5.01 X10*6/uL (4.20-5.50); Red Cell Distribution Width 14.2 % (11.0-16.0); White Blood Count 7.5 X10*3/uL (4.8-10.8)
[2022-07-12 04:47] LABS: HBc Num1 0.07 S/CO (0.00-0.79); HBsAGNum1 0.27 S/CO (0.00-0.99); Hepatitis A Antibody IgM 0.22 Index (0-0.79); Hepatitis B Core Antibody Nonreactive (Nonreactive); Hepatitis B Surface Antigen Negative (Negative); ~HepC Num1 0.07 S/CO (0.00-0.79); ~Hepatitis A Antibody IgM Nonreactive (Nonreactive); ~Hepatitis B Surface Antibody NONREACTIVE (Nonreactive); ~Hepatitis C Antibody Nonreactive (Nonreactive)
[2022-07-13 00:33] LABS: TS Negative Control Passed; TS Panel A 0; TS Panel B 0; TS Positive Control Passed; TSpotTB Negative (Negative)
== END 2022-07-10 12:38 | disposition home or self-care (01) ==
LOC: HO.LAB 12:37
PROVIDERS: PCP Internal Medicine; Visit Provider Nurse Practitioner Family
DX: M05.9 Rheumatoid arthritis with rheumatoid factor, unspecified (principal); Z79.899 Other long term (current) drug therapy
CPT/HCPCS: 36415; 85025; 86481; 86704; 86706; 86709; 86803; 87340

== ENCOUNTER → 2022-07-12 13:32 | Outpatient (BNVA) | payer OTHER, SELFPAY | PROVIDERS: PCP Internal Medicine; Visit Provider Internal Medicine | DX: Z79.01 Long term (current) use of anticoagulants (principal) ==

== ENCOUNTER 2022-07-13 10:54 | Outpatient (REF) | payer OTHER, SELFPAY ==
[2022-07-13 13:39] LABS: Lipase 22 U/L (8-78)
[2022-07-13 14:12] LABS: Folate 15.7 ng/mL (> or = 4.0); TSH reflex Free T4 1.75 uIU/mL (0.32-4.0); Vitamin B12 194 pg/mL (200-900)
[2022-07-19 16:18] LABS: Vitamin D 25-OH, D2 5 ng/mL; Vitamin D 25-OH, D3 28 ng/mL; Vitamin D 25-OH, Total 33 ng/mL (30-100)
== END 2022-07-13 10:55 | disposition home or self-care (01) ==
LOC: HO.LAB 10:54
PROVIDERS: PCP Internal Medicine; Visit Provider Nurse Practitioner Family
DX: R10.9 Unspecified abdominal pain (principal); R14.0 Abdominal distension (gaseous); K58.2 Mixed irritable bowel syndrome; R19.7 Diarrhea, unspecified; E55.9 Vitamin D deficiency, unspecified; K59.00 Constipation, unspecified
CPT/HCPCS: 36415; 82306; 82607; 82746; 83690; 84443; 99202

== ENCOUNTER → 2022-07-19 14:58 | Outpatient (BNVA) | payer OTHER, SELFPAY | PROVIDERS: PCP Internal Medicine; Visit Provider Internal Medicine | DX: Z79.01 Long term (current) use of anticoagulants (principal) ==

== ENCOUNTER → 2022-07-26 10:42 | Outpatient (BNVA) | payer OTHER, SELFPAY | PROVIDERS: PCP Internal Medicine; Visit Provider Internal Medicine | DX: Z79.01 Long term (current) use of anticoagulants (principal) ==

== ENCOUNTER → 2022-08-02 11:46 | Outpatient (BNVA) | payer OTHER, SELFPAY | PROVIDERS: PCP Internal Medicine; Visit Provider Internal Medicine | DX: Z79.01 Long term (current) use of anticoagulants (principal) ==

== ENCOUNTER → 2022-08-09 11:19 | Outpatient (BNVA) | payer OTHER, SELFPAY | PROVIDERS: PCP Internal Medicine; Visit Provider Internal Medicine | DX: Z79.01 Long term (current) use of anticoagulants (principal) ==

== ENCOUNTER → 2022-08-16 14:28 | Outpatient (BNVA) | payer OTHER, SELFPAY | PROVIDERS: PCP Internal Medicine; Visit Provider Internal Medicine | DX: Z79.01 Long term (current) use of anticoagulants (principal) ==

== ENCOUNTER → 2022-08-23 14:16 | Outpatient (BNVA) | payer OTHER, SELFPAY | PROVIDERS: PCP Internal Medicine; Visit Provider Internal Medicine | DX: Z79.01 Long term (current) use of anticoagulants (principal) ==

== ENCOUNTER → 2022-08-30 13:57 | Outpatient (BNVA) | payer OTHER, SELFPAY | PROVIDERS: PCP Internal Medicine; Visit Provider Internal Medicine ==

== ENCOUNTER → 2022-09-06 14:59 | Outpatient (BNVA) | payer OTHER, SELFPAY | PROVIDERS: PCP Internal Medicine; Visit Provider Internal Medicine ==

== ENCOUNTER → 2022-09-13 14:09 | Outpatient (BNVA) | payer OTHER, SELFPAY | PROVIDERS: PCP Internal Medicine; Visit Provider Internal Medicine ==

== ENCOUNTER → 2022-09-20 15:00 | Outpatient (BNVA) | payer OTHER, SELFPAY | PROVIDERS: PCP Internal Medicine; Visit Provider Internal Medicine ==

== ENCOUNTER → 2022-09-27 13:58 | Outpatient (BNVA) | payer OTHER, SELFPAY | PROVIDERS: PCP Internal Medicine; Visit Provider Internal Medicine ==

== ENCOUNTER → 2022-10-04 15:12 | Outpatient (BNVA) | payer OTHER, SELFPAY | PROVIDERS: PCP Internal Medicine; Visit Provider Internal Medicine ==

== ENCOUNTER → 2022-10-11 15:45 | Outpatient (BNVA) | payer OTHER, SELFPAY | PROVIDERS: PCP Internal Medicine; Visit Provider Internal Medicine ==

== ENCOUNTER → 2022-10-19 09:40 | Outpatient (BNVA) | payer OTHER, SELFPAY | PROVIDERS: PCP Internal Medicine; Visit Provider Internal Medicine ==

== ENCOUNTER → 2022-10-26 15:06 | Outpatient (BNVA) | payer OTHER, SELFPAY | PROVIDERS: PCP Internal Medicine; Visit Provider Internal Medicine ==

== ENCOUNTER → 2022-11-01 14:33 | Outpatient (BNVA) | payer OTHER, SELFPAY | PROVIDERS: PCP Internal Medicine; Visit Provider Internal Medicine ==

== ENCOUNTER → 2022-11-09 11:48 | Outpatient (BNVA) | payer OTHER, SELFPAY | PROVIDERS: PCP Internal Medicine; Visit Provider Internal Medicine ==

== ENCOUNTER → 2022-11-15 13:44 | Outpatient (BNVA) | payer OTHER, SELFPAY | PROVIDERS: PCP Internal Medicine; Visit Provider Internal Medicine ==

== ENCOUNTER → 2022-11-22 13:55 | Outpatient (BNVA) | payer OTHER, SELFPAY | PROVIDERS: PCP Internal Medicine; Visit Provider Internal Medicine | DX: I26.99 Other pulmonary embolism without acute cor pulmonale (principal); Z79.01 Long term (current) use of anticoagulants; Z51.81 Encounter for therapeutic drug level monitoring | CPT/HCPCS: 99211 ==

== ENCOUNTER 2022-11-27 08:57 | Outpatient (REF) | payer OTHER, SELFPAY ==
--- NOTE | ~2022-11-27 | XR_ITS ---
EXAMINATION: XR LUMBOSACRAL SPINE CLINICAL INFORMATION: Low back pain COMPARISON: CT 02/02/2022 TECHNIQUE: Three views of the lumbosacral spine. FINDINGS: Normal alignment and lumbar lordosis with prominent facet arthrosis of the lower lumbar levels. There is a mild superior endplate fracture of L3 which is age indeterminate although new since 02/02/2022. Chronic superior endplate fractures of T11 and T12. Filters overlying the distal IVC and left iliac vein similar to the CT.. XR/XR lumbar spine 2-3V IMPRESSION: Mild superior endplate fracture of L3 which is age indeterminate although new since 02/02/2022. If there is concern for an acute fracture, MRI could be obtained.
== END 2022-11-27 08:58 | disposition home or self-care (01) ==
LOC: HO.XRAY 08:57
PROVIDERS: PCP Internal Medicine; Visit Provider Internal Medicine Rheumatology
DX: M54.50 Low back pain, unspecified (principal); M81.0 Age-related osteoporosis without current pathological fracture; M79.7 Fibromyalgia; M05.9 Rheumatoid arthritis with rheumatoid factor, unspecified; Z79.899 Other long term (current) drug therapy
CPT/HCPCS: 72100; 99212

== ENCOUNTER 2022-11-27 10:02 | Outpatient (REF) | payer OTHER, SELFPAY | END 2022-11-27 10:03 | disposition home or self-care (01) | LOC: HO.10HDL 10:02 | PROVIDERS: Visit Provider Internal Medicine Rheumatology | DX: M05.9 Rheumatoid arthritis with rheumatoid factor, unspecified (principal); Z79.899 Other long term (current) drug therapy | CPT/HCPCS: 36415; 80053; 85025; 85652; 86140 ==

== ENCOUNTER → 2022-11-29 13:42 | Outpatient (BNVA) | payer OTHER, SELFPAY | PROVIDERS: PCP Internal Medicine; Visit Provider Internal Medicine ==

== ENCOUNTER → 2022-12-06 10:52 | Outpatient (BNVA) | payer OTHER, SELFPAY | PROVIDERS: PCP Internal Medicine; Visit Provider Internal Medicine ==

== ENCOUNTER → 2022-12-14 13:02 | Outpatient (BNVA) | payer OTHER, SELFPAY | PROVIDERS: PCP Internal Medicine; Visit Provider Internal Medicine ==

== ENCOUNTER 2022-12-15 15:19 | Outpatient (AMB) | payer OTHER, SELFPAY ==
[2022-12-15 16:31] VITALS: BP 111/71; PULSE 82; RESP 16; TEMP 36.9
--- NOTE | 2022-12-15 16:31 | AM.OFFVISNUR ---
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 Accompanied by: Daughter Allergies Iodinated Contrast Media [CONTRAST, IV] Allergy (Intermediate, Verified 12/15/22 16:31) SWELLING, ITCHINESS, RASH Penicillins [PENICILLINS] Allergy (Intermediate, Verified 12/15/22 16:31) ITCHINESS, RASH, SWELLING latex Allergy (Verified 12/15/22 16:31) Hives Sulfa (Sulfonamide Antibiotics) Allergy (Verified 12/15/22 16:31) Unknown zoledronic acid [From Reclast] Adverse Reaction (Verified 12/15/22 16:31) Joint Pain Medication List - Last Reconciled 12/15/22 by Nohemi Ghosh, RN acetaminophen (Mapap (acetaminophen)) 0 mg PO albuterol sulfate 90 mcg/actuation (ProAir HFA) 2 puffs inhalation Q4H PRN calcium carbonate (Calcium) 600 mg PO DAILY cholecalciferol (vitamin D3) 50 mcg PO DAILY clotrimazole 1% 1 appl topical DAILY PRN diclofenac sodium 1% 4 grams topical BID duloxetine 60 mg PO DAILY enalapril maleate 20 mg PO BID folic acid 1 mg PO DAILY hydrochlorothiazide 12.5 mg PO DAILY lorazepam 0.5 mg PO DAILY PRN meclizine 25 mg PO Q6H PRN methotrexate sodium 7.5 mg (3 x 2.5 mg) PO QWEEK methylcellulose (laxative) (Citrucel) 500 mg PO DAILY metoprolol succinate ER 50 mg PO DAILY multivitamin 1 tab PO DAILY ondansetron HCl 4 mg PO Q8H PRN 4 days pantoprazole 40 mg PO DAILY@0630 pravastatin 20 mg PO BEDTIME prednisone 5 mg PO DAILY sennosides (Natural Senna Laxative) 8.6 mg PO BEDTIME temazepam 30 mg PO BEDTIME PRN vit C,D-Yc-aykio-lutein-zeaxan 250-90-40-1 mg (PreserVision AREDS-2) 1 tab PO BID warfarin 6 mg See Protocol PO MOWEFR@1800 Nursing Note Patient here for Prolia injection. Patient made aware of pertinent information regarding Prolia injection. Patient gave consent to administer Prolia. Patient received Prolia on left arm. Patient tolerated this well. Office Meds Prolia Performing Provider: Thierno Ghotra MD Administered by: Nohemi Ghosh RN on 12/15/22 16:35 Dose Route Admin Location Lot Number Expiration Date NDC [employer] [employer] 60 mg subcut left arm [id number] 01/25/25 32043-922-99 [facility] Coding Diagnoses Assessment & Plan Assessment & Plan Orders: Orders AMB Denosumab Injection Practice Supplied Today M05.9 - Rheumatoid arthritis with rheumatoid factor, unspecified
== END 2022-12-15 15:53 | disposition home or self-care (01) ==
PROVIDERS: PCP Internal Medicine; Visit Provider Internal Medicine Rheumatology
DX: M05.9 Rheumatoid arthritis with rheumatoid factor, unspecified (principal)

== ENCOUNTER → 2022-12-15 15:19 | Outpatient (BNVA) | payer OTHER, SELFPAY | PROVIDERS: PCP Internal Medicine; Visit Provider Internal Medicine Rheumatology | DX: M81.0 Age-related osteoporosis without current pathological fracture (principal); M05.9 Rheumatoid arthritis with rheumatoid factor, unspecified | CPT/HCPCS: 96372; J0897 ==

== ENCOUNTER → 2022-12-20 11:33 | Outpatient (BNVA) | payer OTHER, SELFPAY | PROVIDERS: PCP Internal Medicine; Visit Provider Internal Medicine ==

== ENCOUNTER → 2022-12-27 11:02 | Outpatient (BNVA) | payer OTHER, SELFPAY | PROVIDERS: PCP Internal Medicine; Visit Provider Internal Medicine ==

== ENCOUNTER → 2023-01-03 10:32 | Outpatient (BNVA) | payer OTHER, SELFPAY | PROVIDERS: PCP Internal Medicine; Visit Provider Internal Medicine ==

== ENCOUNTER → 2023-01-10 11:13 | Outpatient (BNVA) | payer OTHER, SELFPAY | PROVIDERS: PCP Internal Medicine; Visit Provider Internal Medicine ==

== ENCOUNTER 2023-01-16 12:21 | Outpatient (REF) | payer OTHER, SELFPAY ==
[2023-01-16 14:08] LABS: Alanine Aminotransferase 12 U/L (0-31); Albumin Level 3.6 g/dL (3.5-5.0); Alkaline Phosphatase 100 U/L (39-117); Anion Gap 10 (12-20); Aspartate Amino Transferase 24 U/L (5-31); Bilirubin Direct 0.1 mg/dL (0.0-0.5); Bilirubin Total 0.3 mg/dL (0.0-1.0); Blood Urea Nitrogen 10 mg/dL (9-16); Calcium 9.1 mg/dL (8.4-10.2); Carbon Dioxide 26 mmol/L (22-29); Chloride 109 mmol/L (96-108); Cholesterol 210 mg/dL (<200); Estimated Glomerular Filt Rate > 60; Glucose Random 80 mg/dL (60-115); HDL Cholesterol 69 mg/dL (>40); LDL Cholesterol Calculated 125 mg/dL (<100); Potassium 4.3 mmol/L (3.3-5.1); Sodium 141 mmol/L (135-145); Total Protein 7.3 g/dL (6.5-8.0); Triglycerides 82 mg/dL (<150)
== END 2023-01-16 12:22 | disposition home or self-care (01) ==
LOC: HO.HHCL 12:21
PROVIDERS: Visit Provider Internal Medicine
DX: I10 Essential (primary) hypertension (principal)
CPT/HCPCS: 36415; 80048; 80061; 80076

== ENCOUNTER → 2023-01-17 13:08 | Outpatient (BNVA) | payer OTHER, SELFPAY | PROVIDERS: PCP Internal Medicine; Visit Provider Internal Medicine ==

== ENCOUNTER → 2023-01-24 14:07 | Outpatient (BNVA) | payer OTHER, SELFPAY | PROVIDERS: PCP Internal Medicine; Visit Provider Internal Medicine ==

== ENCOUNTER → 2023-01-31 10:11 | Outpatient (BNVA) | payer OTHER, SELFPAY | PROVIDERS: PCP Internal Medicine; Visit Provider Internal Medicine ==

== ENCOUNTER 2023-02-05 13:51 | Outpatient (AMB) | payer OTHER, SELFPAY ==
--- NOTE | 2023-02-05 14:05 | A.OFFVIS_ITS ---
Intake Vital Signs 02/05/23 14:20 Height 5 ft 3 in Weight 169 lb 12.095 oz BMI 30.1 BP 120/56 L Blood Pressure Location Lt brachial Position Sitting Pulse 98 Pulse Source Pulse Oximeter Temp 97.5 F Temp Source Skin Pulse Oximetry (%) 98 Oxygen Delivery Method Room Air Intake Visit Reasons: Ra, op Intake Note: Patient here to follow up on RA. Bacon De Rinder Required: Yes Bacon De Rinder Language: French Translator Name: Son Accompanied by: Son Allergies Iodinated Contrast Media [CONTRAST, IV] Allergy (Intermediate, Verified 02/05/23 14:19) SWELLING, ITCHINESS, RASH Penicillins [PENICILLINS] Allergy (Intermediate, Verified 02/05/23 14:19) ITCHINESS, RASH, SWELLING latex Allergy (Verified 02/05/23 14:19) Hives Sulfa (Sulfonamide Antibiotics) Allergy (Verified 02/05/23 14:19) Unknown zoledronic acid [From Reclast] Adverse Reaction (Verified 02/05/23 14:19) Joint Pain HPI HPI Comments History of Present Illness Details The patient returns today for evaluation of her rheumatoid arthritis, osteoarthritis, and osteoporosis. Her son is here and translates. She did successfully received the Prolia injection without any problems. She thinks that actually improved some of her pains. She had been put back on methotrexate 7.5 mg weekly but said it made her tired for a day or so after taking it so she stopped it. She did not really have any improvement in the short 3 weeks that she was on it and did not feel any worse since stopping it. She remains on 5 mg daily prednisone. Mostly, as before, she is complaining of lower back pain. This gets worse with movement. It does bother her occasionally at night. She did have a lumbar spine film documenting multiple compression fractures and OA. We tried to get an MRI done to assess for acuity pf the fracturess for othtr c but has not been scheduled yet. She was told it was approved however. 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 Negative for appetite change, weight change, fever, chills, malaise Eyes Details: Occasional headache. Negative for vision change, dry eyes and dizziness ENT Details: Negative for hearing change, tinnitus, oral ulcer, nose bleeds and oral dryness. Card Details: Intermittent ankle and pedal edema. Negative chest pain, palpitations and s yncope Resp Details: Negative for SOB, cough and wheezing GI Details: Negative indigestion/heartburn, nausea, abdominal pain, bowel changes, diarrhea, constipation and bloody stool. Details: Negative for dysuria, hematuria, nocturia, decreased force/flow and genital discharge Skin/Breast Details: Negative for itching, rash, hives, Raynaud's symptoms, sun sensitivity, and skin cancer Neuro Details: Negative for epilepsy, palsy, stroke, changes in speech, tingling and weakness Psych Details: Negative for anxiety, depression and stress Endo Details: Negative for polyuria and polydypsia Manuel/Lymph Details: Negative for excessive bruising or bleeding. Physical Exam Vital Signs: Last Vital Signs Temp 97.5 F 02/05/23 14:20 Pulse 98 02/05/23 14:20 BP 120/56 L 02/05/23 14:20 Pulse Ox 98 02/05/23 14:20 Oxygen Delivery Method Room Air 02/05/23 14:20 BMI result Body Mass Index 30.1 APPEARANCE: Patient in no acute distress APPEARANCE: Patient in no acute distress EYES no redness, pupils equal and reactive to light, eyelids normal ABD: Normal bowel sounds, no organomegaly. There is no abdominal tenderness. No masses palpable. EXTREMITIES: No edema, no calf tenderness, normal peripheral pulses. NEURO: Oriented and alert x3. No focal weakness. Reflexes symmetric. She walks in a stooped posture holding her lower back region. SKIN: No inflammatory or neoplastic lesions. Normal color and turgor JOINT EXAM: ? Cervical Spine:.? Mild pains at the extremes of normal range of motion. Mild cervical muscle tenderness. Thoracic Spine:.? No scoliosis.? No tenderness on palpation. Lumbar Spine:.? Alignment normal.? Moderate pain with flexion beyond 45 degrees or with attempts at hyperextension. She has much pain and difficulty lying on the table. There is yehi-na-ykoykvfl tenderness throughout the whole the spine but the pain is more prominent in the upper lumbar region.. Chest Wall:.? Mild tenderness along the right sternoclavicular joint. No swelling. Hands:.? Right: Pain-free range of motion with some mild swelling in the 1st 3 MCP joints. These are slightly tender. There is also slight tenderness at theother joints in the hand which have some slight bony enlargement. There is no soft tissue swelling, redness or warmth. There is no flexor tendon triggering, thenar atrophy or sensory loss. Left: Normal pain-free range of motion with mild swelling in the 1st 2 MCP joints. These are slightly tender. There is also slight bony however in all the other small joints in the hand. There are no other joints however that have tenderness There is no redness, warmth, thenar atrophy, flexor tendon triggering, or sensory loss. Wrists: Slight pain with flexion extension at 80 degrees with some mild tenderness but no swelling, increased warmth or erythema. Elbows:. Normal pain-free range of motion with mild lateral epicondylar tenderness. Over the joint spaces there is no tenderness, swelling, increased warmth or erythema. Shoulders:.?? Full range of motion with mild pain at the extremes of motion. There is mild anterior and posterior tenderness without adenopathy, weakness, swelling, increased warmth or erythema. Hips:.? Range of motion is intact but causes severe lumbar pain with extremes of normal internal or external rotation. No groin pain with motion. Hip bursa:.? Mild trochanteric tenderness. Knees:.??Right: Slight pain with extremes of flexion or extension with some mild medial compartment tenderness. There is mild patellofemoral crepitus but no redness or effusion. Left: Slight pain with the extremes of normal flexion or extension. Pain is worse with weight-bearing. There is mild to moderate medial tenderness without redness or effusion. There is mild patellofemoral crepitus with no popliteal swelling or tenderness. Ankles: There is mild pain with inversion, eversion, or AP motion. There is mild soft tissue swelling on the medial and lateral aspects with obfn-sv-attrrilo tenderness. No redness or warmth. Feet:.? Normal pain-free range of motion with mild 1st MTP bony enlargement with slight tenderness in those joints. Elsewhere there is no tenderness, swelling, increased warmth or erythema. Tender points:? Mild tenderness to digital palpation at the occiput, trapezius, second rib, lateral epicondyle, knees, greater trochanter and gluteal area bilaterally. ? Results Reviewed Results Reviewed: November 27: White count 4.9, hemoglobin 11.9, hematocrit 39.2, ESR 82, creatinine 0.75, CRP 3.39 Assessment & Plan Assessment & Plan (1) Osteoarthritis of lumbosacral spine: Code(s): M47.817 - Spondylosis without myelopathy or radiculopathy, lumbosacral region (2) Lumbar compression fracture: Code(s): S32.000A - Wedge compression fracture of unspecified lumbar vertebra, initial encounter for closed fracture (3) Osteoporosis: Comment: MRI lumbar spine 06/2021: Moderate benign appearing compression fracture along superior endplate T11 and T12 DEXA 01/14/2022: Osteoporosis T-score -3.5. Started on alendronate, patient did not receive medication. Prolia not an option due to latex allergy. Reclast denied by insurance company. Alendronate reordered May 2022 pharmacy did not fill due to listed allergy of bisphosphonates. Reviewed with patient, she remembered that she took Reclast in the past and had head to toe joint pain after infusion requiring hospitalization. Patient agrees to try alendronate June 2022. Prolia given 11/2022 Code(s): M81.0 - Age-related osteoporosis without current pathological fracture (4) Seropositive rheumatoid arthritis: Comment: Humira October 2019- February 2020 - not effective Enbrel- February 2020 to April 2020- self stopped due to cholecystitis, then had cholecystectomy. 06/2020 Low dose methothrexate - partial effective so Kevzara started July 2020- discontinued June 2022 due to neutropenia and leukopenia Methotrexate: January 2020 discontinued 06/2022 due to neutropenia. Out of touch in [place] 06/2022 to 11/2022. MTx restarted 11/2022 Code(s): M05.9 - Rheumatoid arthritis with rheumatoid factor, unspecified Plan Rheumatoid arthritis with still some tenderness in the ankles in a few of the MCP joints. She is only on prednisone 5 mg daily at this point. Previous trials with DMARDs and biologics were not all that effective. For now I think I would just stay with the prednisone until we clarify what is going on with the lumbar spine. With the elevated acute phase reactants and the previous c ompression fractures one wonders if that could be some infectious or malignant process in the lumbar spine. It is likely however most of the back pain is due to lumbar degenerative disease. We will see if we can get that MRI scheduled. I will add some lidocaine patch 5% to put on 12 hours a day to help with the back pain. She tolerated the Prolia given for the eosteoporosis so another injection in May is planned. We will recheck the inflammatory markers today and see her back in about 2 months. Medications: New lidocaine 5% leave on most painful area for up to 12 hrs 1 patch topical DAILY 30 ea 3RF M47.817 - Spondylosis without myelopathy or radiculopathy, lumbosacral region Discontinued folic acid Discontinued Reason: Patient Completed Course 1 mg PO DAILY 30 tabs 5RF M05.9 - Rheumatoid arthritis with rheumatoid factor, unspecified, Z79.899 - Other middle or intermediate school principal (current) drug therapy Coding Level of Care Code Est Pt Level 4 (69908) Diagnoses Osteoarthritis of lumbosacral spine M47.817 Lumbar compression fracture S32.000A Osteoporosis M81.0 Seropositive rheumatoid arthritis M05.9
[2023-02-05 14:20] VITALS: BP 120/56; PULSE 98; TEMP 36.4; O2SAT 98; BMI 30.1
== END 2023-02-05 14:59 | disposition home or self-care (01) ==
PROVIDERS: PCP Internal Medicine; Referring Provider Internal Medicine; Visit Provider Internal Medicine Rheumatology
DX: M05.79 Rheumatoid arthritis with rheumatoid factor of multiple sites without organ or systems involvement (principal); M47.817 Spondylosis without myelopathy or radiculopathy, lumbosacral region; S32.000A Wedge compression fracture of unspecified lumbar vertebra, initial encounter for closed fracture; M81.0 Age-related osteoporosis without current pathological fracture
CPT/HCPCS: 99214

== ENCOUNTER 2023-02-05 13:51 | Outpatient (REF) | payer OTHER, SELFPAY ==
[2023-02-05 15:26] LABS: MANUAL DIFF FLAG NO
[2023-02-05 15:42] LABS: Basophils Percent Auto 0.8 % (0-2); Eosinophils Absolute Auto 0.4 X10*3/uL (0.0-0.4); Eosinophils Percent Auto 8.9 % (0-4); Hematocrit 38.4 % (37.0-47.0); Hemoglobin 11.5 g/dl (12.0-16.0); Imm Gran Abs Auto 0.01 X10*3/uL (0.00-0.03); Imm Gran Pct Auto 0.2 % (0.0-0.4); Lymphocytes Percent Auto 41.1 % (20-40); Mean Corpuscular HGB Conc 29.9 g/dl (31.0-35.0); Mean Corpuscular Hemoglobin 24.6 pg (27.0-33.0); Mean Corpuscular Volume 82.2 fL (80.0-98.0); Mean Platelet Volume 10.1 fL (9.4-12.3); Monocytes Absolute Auto 0.4 X10*3/uL (0.1-1.2); Monocytes Percent Auto 7.6 % (2-11); Neutrophils Percent Auto 41.4 % (45-73); Platelet Count 355 X10*3/uL (160-400); Red Blood Count 4.67 X10*6/uL (4.20-5.50); Red Cell Distribution Width 16.9 % (11.0-16.0); White Blood Count 4.7 X10*3/uL (4.8-10.8)
[2023-02-05 16:03] LABS: D Dimer High Sensitivity < 150 NG/ML
[2023-02-05 16:13] LABS: Alanine Aminotransferase 10 U/L (0-31); Albumin Level 3.7 g/dL (3.5-5.0); Alkaline Phosphatase 91 U/L (39-117); Anion Gap 10 (12-20); Aspartate Amino Transferase 22 U/L (5-31); Bilirubin Total 0.2 mg/dL (0.0-1.0); Blood Urea Nitrogen 11 mg/dL (9-16); Calcium 9.8 mg/dL (8.4-10.2); Carbon Dioxide 26 mmol/L (22-29); Chloride 111 mmol/L (96-108); Estimated Glomerular Filt Rate > 60; Glucose Random 92 mg/dL (60-115); Potassium 4.3 mmol/L (3.3-5.1); Sodium 143 mmol/L (135-145); Total Protein 7.1 g/dL (6.5-8.0)
== END 2023-02-05 13:52 | disposition home or self-care (01) ==
LOC: HO.LAB 13:51
PROVIDERS: Internal Medicine Medical Oncology; PCP Internal Medicine; Referring Provider Internal Medicine; Visit Provider Internal Medicine Rheumatology
DX: I26.99 Other pulmonary embolism without acute cor pulmonale (principal); M06.9 Rheumatoid arthritis, unspecified; M47.817 Spondylosis without myelopathy or radiculopathy, lumbosacral region; S32.000A Wedge compression fracture of unspecified lumbar vertebra, initial encounter for closed fracture; M81.0 Age-related osteoporosis without current pathological fracture; X58.XXXA Exposure to other specified factors, initial encounter; Y93.9 Activity, unspecified; Y92.9 Unspecified place or not applicable; Y99.9 Unspecified external cause status; Z79.52 Long term (current) use of systemic steroids; Z79.899 Other long term (current) drug therapy
CPT/HCPCS: 36415; 80053; 85025; 85379; 99212

== ENCOUNTER → 2023-02-07 14:57 | Outpatient (BNVA) | payer OTHER, SELFPAY | PROVIDERS: PCP Internal Medicine; Visit Provider Internal Medicine ==

== ENCOUNTER → 2023-02-14 10:35 | Outpatient (BNVA) | payer OTHER, SELFPAY | PROVIDERS: PCP Internal Medicine; Visit Provider Internal Medicine ==

== ENCOUNTER → 2023-02-21 12:25 | Outpatient (BNVA) | payer OTHER, SELFPAY | PROVIDERS: PCP Internal Medicine; Visit Provider Internal Medicine ==

== ENCOUNTER → 2023-02-28 10:47 | Outpatient (BNVA) | payer OTHER, SELFPAY | PROVIDERS: PCP Internal Medicine; Visit Provider Internal Medicine ==

== ENCOUNTER → 2023-03-07 14:31 | Outpatient (BNVA) | payer OTHER, SELFPAY | PROVIDERS: PCP Internal Medicine; Visit Provider Internal Medicine ==

== ENCOUNTER 2023-03-12 13:04 | Outpatient (AMB) | payer OTHER, SELFPAY ==
--- NOTE | 2023-03-12 13:07 | MHC.OFFVIS ---
Intake Vital Signs 03/12/23 13:08 Height 5 ft 3 in Weight 167 lb 15.876 oz BMI 29.8 BP 132/66 Blood Pressure Location Lt brachial Pulse 81 Pulse Source Pulse Oximeter Temp 36.2 F L Temp Source Skin Pulse Oximetry (%) 99 Intake Visit Reasons: ra/oa/op Intake Note: Patient presents today reporting skin smallwood of concern have resolved. Patient would also like to discuss restarting MTX. c/o right sided rib pain after trying to get out of the car about 2 wks ago. Cartridge Assembler Required: Yes Cartridge Assembler Language: Machine Taper Name: Yolanda-daughter in law Information Interpreted: non-clinical & clinical Accompanied by: Daughter in law Allergies Iodinated Contrast Media [CONTRAST, IV] Allergy (Intermediate, Verified 03/12/23 13:12) SWELLING, ITCHINESS, RASH Penicillins [PENICILLINS] Allergy (Intermediate, Verified 03/12/23 13:12) ITCHINESS, RASH, SWELLING latex Allergy (Verified 03/12/23 13:12) Hives Sulfa (Sulfonamide Antibiotics) Allergy (Verified 03/12/23 13:12) Unknown zoledronic acid [From Reclast] Adverse Reaction (Verified 03/12/23 13:12) Joint Pain HPI HPI Comments History of Present Illness Details The patient presents today with her daughter for evaluation of her osteoarthritis, rheumatoid arthritis and osteoporosis. The daughter translates for us. The patient continues to have pain in many areas including the shoulders, hands, lower back, knees and feet. Most prominently painful are the lower back region and the knees. This seems to limit her mobility. She does walk at home with a walker or a cane at times. I had ordered MRI of the LS spine an attempt to see if her compression fractures were new and rule out other potentially inflammatory or infectious disease. The MRI still has not been done but is scheduled for next week. She does not have any fever or chills. She remains on as acetaminophen for her symptoms. She had been on prednisone but did not think it helped a whole lot so it was tapered off. I tried to start her on methotrexate but she was confused because she was told never to take it again because of leukopenia. Looking through the record, the leukopenia was more severe when she had methotrexate and Kevzara at the same time. Recently, getting out of a car she developed some right rib pain. The rib pain has been there now for about 2 weeks and is very bothersome with deep breaths or with movement. She has tolerated the Prolia injection. We reviewed that this Prolia treatment was not meant to improve her symptoms but to reduce the probability of future fractures. FORMERLY [facility], [facility] Medical History (Updated 03/12/23 @ 17:42 by Thierno Ghotra MD) Leg edema Surgical History History of cholecystectomy History of appendectomy History of total abdominal hysterectomy and bilateral salpingo-oophorectomy History of bariatric surgery History of colonoscopy Family History Father Asthma Mother Rheumatoid arthritis Cardiovascular disease Social History Household Members: Family Housing: House Are you a primary critical care clinical nurse specialist to a significant other at home: No Do you presently have visiting nurse or other home services: Yes (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 Negative for appetite change, weight change, fever, chills, malaise Eyes Details: Negative for vision change, dry eyes,headaches and dizziness ENT Details: Negative for hearing change, tinnitus, oral ulcer, nose bleeds and oral dryness. Card Details: Left-sided rib pain as noted above. Negative take palpitations, edema and syncope Resp Details: Negative for SOB, cough and wheezing GI Details: Negative indigestion/heartburn, nausea, abdominal pain, bowel changes, diarrhea, constipation and bloody stool. Details: Negative for dysuria, hematuria, nocturia, decreased force/flow and genital discharge Skin/Breast Details: Negative for itching, rash, hives, Raynaud's symptoms, sun sensitivity, and skin cancer Neuro Details: Negative for epilepsy, palsy, stroke, changes in speech, tingling and weakness Psych Details: Negative for anxiety, depression and stress Endo Details: Negative for polyuria and polydypsia Manuel/Lymph Details: Negative for excessive bruising or bleeding. Physical Exam Vital Signs: Last Vital Signs Temp 36.2 F L 03/12/23 13:08 Pulse 81 03/12/23 13:08 BP 132/66 03/12/23 13:08 Pulse Ox 99 03/12/23 13:08 BMI result Body Mass Index 29.8 APPEARANCE: Patient in no acute distress EYES no redness, pupils equal and reactive to light, eyelids normal. No temporal artery tenderness, redness or swelling. NECK: No thyromegaly or masses, no adenopathy, trachea midline. HEART: Regulrar rhythm, S1-S2 heard, no murmurs, rubs or gallops. LUNG: Clear to percussion and auscultation ABD: Normal bowel sounds, no organomegaly, masses or tenderness. EXTREMITIES: No edema, no calf tenderness, normal peripheral pulses. NEURO: Oriented and alert x3. No focal weakness. Reflexes symmetric. Gait normal. SKIN: Some hyperpigmentation over the dorsum of the foot and the malleoli bilaterally. This looks like old venous stasis disease. There are no inflammatory or neoplastic lesions. JOINT EXAM: Cervical Spine:.? Mild pains at the extremes of normal range of motion. Mild cervical muscle tenderness. Thoracic Spine:.? No scoliosis.? No tenderness on palpation. Lumbar Spine:.? Alignment normal.? Moderate pain with flexion beyond 45 degrees or with attempts at hyperextension. She has much pain and difficulty lying on the table. There is ievv-im-afbxfkvy tenderness throughout the whole the spine but the pain is more prominent in the lumbar region. Chest Wall:.? Mild to moderate tenderness along the right costal margin. No redness, bruising or swelling seen. Hands:.? Right: Pain-free range of motion with some mild swelling in the 1st 3 MCP joints. These are slightly tender. There is also slight tenderness at the 2nd through 4th PIP joints which have some slight bony enlargement. There is no soft tissue swelling, redness or warmth. There is no flexor tendon triggering, thenar atrophy or sensory loss. Left: Normal pain-free range of motion with mild swelling in the 1st 2 MCP joints. These are slightly tender. There is also slight bony enlargement however in all the other small joints in the hand. There are no other joints however that have tenderness There is no redness, warmth, thenar atrophy, flexor tendon triggering, or sensory loss. Wrists: Slight pain with flexion extension at 80 degrees with some mild tenderness but no swelling, increased warmth or erythema. Elbows:. Normal pain-free range of motion with mild lateral epicondylar tenderness. Over the joint spaces there is no tenderness, swelling, increased warmth or erythema. Shoulders:.?? Full range of motion with mild pain at the extremes of motion. There is mild anterior and posterior tenderness without adenopathy, weakness, swelling, increased warmth or erythema. Hips:.? Range of motion is intact but causes severe lumbar pain with extremes of normal internal or external rotation. No groin pain with motion. Hip bursa:.? Mild trochanteric tenderness. Knees:.??Right: Slight pain with extremes of flexion or extension with some mild medial compartment tenderness. There is mild patellofemoral crepitus but no redness or effusion. Left: Slight pain with the extremes of normal flexion or extension. Pain is worse with weight-bearing. There is mild to moderate medial tenderness without redness or effusion. There is mild patellofemoral crepitus with no popliteal swelling or tenderness. Ankles: There is mild pain with inversion, eversion, or AP motion. There is mild soft tissue swelling on the medial and lateral aspects with wdop-tc-pkhqicio tenderness. No redness or warmth. Feet:.? Normal pain-free range of motion with mild 1st MTP bony enlargement with slight tenderness in those joints. Elsewhere there is no tenderness, swelling, increased warmth or erythema. Tender points:? Mild tenderness to digital palpation at the occiput, trapezius, second rib, lateral epicondyle, knees, greater trochanter and gluteal area bilaterally. ? Results Reviewed Results Reviewed: Laboratory Tests 11/27/22 11/27/22 02/05/23 10:04 10:04 15:24 WBC 4.7 L Hgb 11.5 L ESR 82 H Creatinine AST ALT C-Reactive Protein 3.39 H 02/05/23 02/05/23 15:24 15:24 WBC Hgb ESR Creatinine 0.80 AST 22 ALT 10 C-Reactive Protein Assessment & Plan Assessment & Plan (1) alf methotrexate user: Code(s): Z79.899 - Other rodent exterminator (current) drug therapy (2) Osteoarthritis of lumbosacral spine: Code(s): M47.817 - Spondylosis without myelopathy or radiculopathy, lumbosacral region (3) Lumbar compression fracture: Code(s): S32.000A - Wedge compression fracture of unspecified lumbar vertebra, initial encounter for closed fracture (4) Seropositive rheumatoid arthritis: Comment: Humira October 2019- February 2020 - not effective Enbrel- February 2020 to April 2020- self stopped due to cholecystitis, then had cholecystectomy. 06/2020 Low dose methothrexate - partial effective so Kevzara started July 2020- discontinued June 2022 due to neutropenia and leukopenia Methotrexate: January 2020 discontinued 06/2022 due to neutropenia. Out of touch in [place] 06/2022 to 11/2022. MTx restarted 02/2023 Code(s): M05.9 - Rheumatoid arthritis with rheumatoid factor, unspecified Plan Rheumatoid arthritis with still a few joints with swelling and tenderness. At the RA probably has some degree of continued activity as evidence by the elevated inflammatory markers. Again I think we should try the methotrexate again. I told her we would use a low dose and watch the white count closely. The previous leukopenia was I think mostly due to the concomitant use of Kevzara. Most of her pains at present are in the lower back region consistent with lumbar osteoarthritis and probably some deformity from previous compression fractures. There could be some acute fracturethat might be helped with kyphoplasty and that is why we are waiting the MRI scan. I told him I would most likely be referring them to Pain Management so we will make that referral. I think they should try to coordinate the visit to have for the MRI scan done before the visit. We will restart the methotrexate 7.5 mg weekly with 1 mg daily folic acid. We will check labs before next visit in about 5 weeks. With today's visit we reviewed her history, records, today's exam, and treatment options. The visit took 44 minutes. Orders: Orders Erythrocyte Sedimentation Rate Today M05.9 - Rheumatoid arthritis with rheumatoid factor, unspecified C Reactive Protein Today M05.9 - Rheumatoid arthritis with rheumatoid factor, unspecified Complete Blood Count Auto Diff Today M05.9 - Rheumatoid arthritis with rheumatoid factor, unspecified, Z79.899 - Other custodial (current) drug therapy Comprehensive Met. Panel Today Z79.899 - Other custodial (current) drug therapy Referrals Pain Management Referral M47.817 - Spondylosis without myelopathy or radiculopathy, lumbosacral region, S32.000A - Wedge compression fracture of unspecified lumbar vertebra, initial encounter for closed fracture Medications: New methotrexate sodium 7.5 mg (3 x 2.5 mg) PO QWEEK 12 tabs 1RF M05.9 - Rheumatoid arthritis with rheumatoid factor, unspecified folic acid 1 mg PO DAILY 30 tabs 1RF M05.9 - Rheumatoid arthritis with rheumatoid factor, unspecified, Z79.899 - Other rodent exterminator (current) drug therapy Discontinued methotrexate sodium Discontinued Reason: Doctor's Order 7.5 mg (3 x 2.5 mg) PO QWEEK 12 tabs 0RF M05.9 - Rheumatoid arthritis with rheumatoid factor, unspecified prednisone Discontinued Reason: Patient Completed Course 5 mg PO DAILY 30 tabs 0RF M05.9 - Rheumatoid arthritis with rheumatoid factor, unspecified Coding Level of Care Code Est Pt Level 5 (46241) 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
[2023-03-12 13:08] VITALS: BP 132/66; PULSE 81; TEMP 2.3; TEMP 36.2; O2SAT 99; BMI 29.8
== END 2023-03-12 14:08 | disposition home or self-care (01) ==
PROVIDERS: PCP Internal Medicine; Visit Provider Internal Medicine Rheumatology
DX: M05.79 Rheumatoid arthritis with rheumatoid factor of multiple sites without organ or systems involvement (principal); Z79.899 Other long term (current) drug therapy; M47.817 Spondylosis without myelopathy or radiculopathy, lumbosacral region; S32.000A Wedge compression fracture of unspecified lumbar vertebra, initial encounter for closed fracture
CPT/HCPCS: 99215

== ENCOUNTER → 2023-03-12 13:04 | Outpatient (BNVA) | payer OTHER, SELFPAY | PROVIDERS: PCP Internal Medicine; Visit Provider Internal Medicine Rheumatology | DX: M05.9 Rheumatoid arthritis with rheumatoid factor, unspecified (principal); M47.817 Spondylosis without myelopathy or radiculopathy, lumbosacral region; Z79.899 Other long term (current) drug therapy; S32.000D Wedge compression fracture of unspecified lumbar vertebra, subsequent encounter for fracture with routine healing | CPT/HCPCS: 99212 ==

== ENCOUNTER → 2023-03-14 10:50 | Outpatient (BNVA) | payer OTHER, SELFPAY | PROVIDERS: PCP Internal Medicine; Visit Provider Internal Medicine ==

== ENCOUNTER 2023-03-20 10:02 | Outpatient (AMB) | payer OTHER, SELFPAY ==
--- NOTE | 2023-03-20 10:11 | MHC.OFFVIS ---
Intake Vital Signs 03/20/23 10:13 Height 5 ft 3 in Weight 171 lb BMI 30.3 BP 148/66 H Blood Pressure Location Lt brachial Position Sitting Respiration 15 Pulse 84 Pulse Source Pulse Oximeter Pulse Oximetry (%) 98 Oxygen Delivery Method Room Air Intake Visit Reasons: LUMBAR COMPRESSION FRACTURE Allergies Iodinated Contrast Media [CONTRAST, IV] Allergy (Intermediate, Verified 03/20/23 10:14) SWELLING, ITCHINESS, RASH Penicillins [PENICILLINS] Allergy (Intermediate, Verified 03/20/23 10:14) ITCHINESS, RASH, SWELLING latex Allergy (Verified 03/20/23 10:14) Hives Sulfa (Sulfonamide Antibiotics) Allergy (Verified 03/20/23 10:14) Unknown zoledronic acid [From Reclast] Adverse Reaction (Verified 03/20/23 10:14) Joint Pain Medication List - Last Reconciled 03/20/23 by Noemy Corrigan LPN acetaminophen (Mapap (acetaminophen)) 500 mg PO DAILY albuterol sulfate 90 mcg/actuation (ProAir HFA) 2 puffs inhalation Q4H PRN calcium carbonate (Calcium) 600 mg PO DAILY cholecalciferol (vitamin D3) 50 mcg PO DAILY clotrimazole-betamethasone 1-0.05 % 1 appl topical DAILY denosumab (Prolia) 60 mg subcut [id number] diclofenac sodium 1% 4 grams topical BID duloxetine 60 mg PO DAILY enalapril maleate 20 mg PO BID folic acid 1 mg PO DAILY hydrochlorothiazide 12.5 mg PO DAILY hydrocortisone 1% 1 appl topical DAILY lorazepam 0.5 mg PO DAILY PRN meclizine 25 mg PO Q6H PRN methotrexate sodium 7.5 mg (3 x 2.5 mg) PO QWEEK metoprolol succinate ER 50 mg PO DAILY multivitamin 1 tab PO DAILY ondansetron HCl 4 mg PO Q8H PRN 4 days pantoprazole 40 mg PO DAILY@0630 sennosides (Natural Senna Laxative) 8.6 mg PO BEDTIME temazepam 30 mg PO BEDTIME PRN vit C,K-La-unxlv-lutein-zeaxan 250-90-40-1 mg (PreserVision AREDS-2) 1 tab PO BID warfarin 6 mg See Protocol PO MOWEFR@1800 HPI HPI Comments History of Present Illness Details Vicky is a very pleasant 78 year old female who presents to the office today for evaluation and management of her chronic lower back pain. Patient was referred here by Rheum for known L3 compression fracture, age indeterminate. She is pending MRI scheduled 03/22/23. Patient reports in addition to previous pain, about 1.5 months ago she twisted and felt a crack in her back with severe pain that made her drop to her knees. She has not undergone imaging since that injury. She has been suffering with chronic lower back pain for years, currently being treated for RA, fibromyalgia, Osteoporosis and Osteoarthritis of the lumbar spine. 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 Patient has tried NSAIDs and tylenol without relief. Patient has not been to physical therapy recently. She has not tried injections, acupuncture or chiropractic manipulation. She does get steroid injections and NEOS for bilateral shoulders, recently stopped taking prednisone daily for RA. Pain today is rated as 7/10, constant across her lower back with radiation into lateral thighs to the level of the knees. Pain midline lumbar vertebrae over area of known compression fracture. Tender to palpation, worse with movement. She denies radiation of the pain to the toes, denies numbness, weakness or tingling of BLE. She denies new loss of bowel, bladder or saddle anesthesia. Patient does report that for atleast the last year if not longer she will lose bowel and bladder control about two times a month. She states her doctor is aware of this. In terms of muscle damage condition is described as aching, shooting, tiring, cramping, throbbing. Pain is negatively impacting patients enjoyment of life, mood, general activity, normal work, recreational activities, relationships with people, sleep and walking. Patient has a PMH of PE with current use of anticoagulants. 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 Answers questions appropriately. Fully engaged in examination. Skin: warm, dry, intact HEENT: Normocephalic. Hearing intact. Cardiac: External chest normal in appearance. Respiratory: No cough, audible wheezing or stridor. Abdomen: without gross distension. MS: No obvious swelling or deformities. Able to transition from sit to stand unassisted. Ambulates with antalgic gait tenderness to palpation over midline lumbar vertebrae and lumbar paraspinal muscles nontenter to palpation over PSIS SLR with and without dorsiflexion negative bilaterally. Neurological: Oriented to person, place, time and situation. Thought process intact. Psychiatric: Appropriate mood and affect. Good judgment and insight. Results Reviewed Results Reviewed: 11/27/2022 XR/XR lumbar spine 2-3V FINDINGS: Normal alignment and lumbar lordosis with prominent facet arthrosis of the lower lumbar levels. There is a mild superior endplate fracture of L3 which is age indeterminate although new since 02/02/2022. Chronic superior endplate fractures of T11 and T12. Filters overlying the distal IVC and left iliac vein similar to the CT.. IMPRESSION: Mild superior endplate fracture of L3 which is age indeterminate although new since 02/02/2022. If there is concern for an acute fracture, MRI could be obtained. Assessment & Plan Assessment & Plan (1) Osteoarthritis of lumbosacral spine: Code(s): M47.817 - Spondylosis without myelopathy or radiculopathy, lumbosacral region (2) Lumbar compression fracture: Code(s): S32.000A - Wedge compression fracture of unspecified lumbar vertebra, initial encounter for closed fracture (3) Osteoporosis: Comment: MRI lumbar spine 06/2021: Moderate benign appearing compression fracture along superior endplate T11 and T12 DEXA 01/14/2022: Osteoporosis T-score -3.5. Started on alendronate, patient did not receive medication. Prolia not an option due to latex allergy. Reclast denied by insurance company. Alendronate reordered May 2022 pharmacy did not fill due to listed allergy of bisphosphonates. Reviewed with patient, she remembered that she took Reclast in the past and had head to toe joint pain after infusion requiring hospitalization. Patient agrees to try alendronate June 2022. Prolia given 11/2022 Code(s): M81.0 - Age-related osteoporosis without current pathological fracture Plan Vicky is a very pleasant 78 year old female who presented to the office today for evaluation and management of her chronic back pain. Patient was referred from rheumatology for known compression fracture at L3 that was visualized on xray 11/2022. She has MRI scheduled 03/22/2023. Discussed options for treatment pending review of MRI, will plan for kyphoplasty. Dexa scan completed 12/2021 with dx osteoporosis, treated with medication. Patient will reach out to rheum to discuss alendronate as she has questions reguarding this medication and other medications that she currently takes which are prescribed from their office. Follow up in 1 week to review MRI and amend care plan based on findings. All questions and concerns were addressed during the visit, patient agrees with the plan. Coding Level of Care Code New Pt Level 4 (98547) Diagnoses Osteoarthritis of lumbosacral spine M47.817 Lumbar compression fracture S32.000A Osteoporosis M81.0
[2023-03-20 10:13] VITALS: BP 148/66; PULSE 84; RESP 15; O2SAT 98; BMI 30.3
== END 2023-03-20 10:45 | disposition home or self-care (01) ==
PROVIDERS: PCP Internal Medicine; Visit Provider Registered Nurse Emergency
DX: M47.817 Spondylosis without myelopathy or radiculopathy, lumbosacral region (principal); S32.000A Wedge compression fracture of unspecified lumbar vertebra, initial encounter for closed fracture; M81.0 Age-related osteoporosis without current pathological fracture
CPT/HCPCS: 99204

== ENCOUNTER → 2023-03-20 10:02 | Outpatient (BNVA) | payer OTHER, SELFPAY | PROVIDERS: PCP Internal Medicine; Visit Provider Registered Nurse Emergency ==

== ENCOUNTER 2023-03-22 09:33 | Outpatient (AMB) | payer OTHER, SELFPAY ==
[2023-03-22 10:01] LABS: Prothrombin Time Whole Bld POC 32.8 sec (11.1-13.5); ~PT, ~INR - Anti Coag Clinic 2.7 (0.9-1.1)
--- NOTE | 2023-03-22 10:11 | MHC.OFFVISCO ---
Intake Intake Visit Reasons: Anticoagulation Allergies Iodinated Contrast Media [CONTRAST, IV] Allergy (Intermediate, Verified 03/22/23 09:49) SWELLING, ITCHINESS, RASH Penicillins [PENICILLINS] Allergy (Intermediate, Verified 03/22/23 09:49) ITCHINESS, RASH, SWELLING latex Allergy (Verified 03/22/23 09:49) Hives Sulfa (Sulfonamide Antibiotics) Allergy (Verified 03/22/23 09:49) Unknown zoledronic acid [From Reclast] Adverse Reaction (Verified 03/22/23 09:49) Joint Pain Medication List - Last Reconciled 03/22/23 by Argenis Cruz RN acetaminophen (Mapap (acetaminophen)) 500 mg PO DAILY albuterol sulfate 90 mcg/actuation (ProAir HFA) 2 puffs inhalation Q4H PRN calcium carbonate (Calcium) 600 mg PO DAILY cholecalciferol (vitamin D3) 50 mcg PO DAILY clotrimazole-betamethasone 1-0.05 % 1 appl topical DAILY denosumab (Prolia) 60 mg subcut [id number] diclofenac sodium 1% 4 grams topical BID duloxetine 60 mg PO DAILY enalapril maleate 20 mg PO BID folic acid 1 mg PO DAILY hydrochlorothiazide 12.5 mg PO DAILY hydrocortisone 1% 1 appl topical DAILY lorazepam 0.5 mg PO DAILY PRN meclizine 25 mg PO Q6H PRN methotrexate sodium 7.5 mg (3 x 2.5 mg) PO QWEEK metoprolol succinate ER 50 mg PO DAILY multivitamin 1 tab PO DAILY ondansetron HCl 4 mg PO Q8H PRN 4 days pantoprazole 40 mg PO DAILY@0630 sennosides (Natural Senna Laxative) 8.6 mg PO BEDTIME temazepam 30 mg PO BEDTIME PRN warfarin 6 mg See Protocol PO MOWEFR@1800 Nursing Note INR: 2.7 CLINIC / 2.7 PT METER CAME WITH DAUGHTER ROBERT METER TO METER CORRELATION WITH EXCELLENT POC SKILLS in therapeutic range Medications and supplements reviewed PT AND DAUGHTER INQUIRING ABOUT DOACS, HAND OUTS ABOUT THEM GICEN WITH PHONE NUMBERS FOR FINANCIAL ASSISTANCE FOR THEM, ENC THEM TO DISCUSS WITH PHARMACY [facility] INTERACTIOSN AND COST WITH HER CURRENT INSURANCE, AND THEN TO DISCUSS WITH PCP FOR RX A ND THEN CALL [facility] FOR EXIT INR No changes in health, diet, medications, or supplements, Denies any signs and symptoms of bleeding or bruising or clotting. Bleeding, bruising, clotting discussed Nutritional guidance given EAT A MIX OF FRUITS AND VEGETABLERS Dose: KEEP SAME DOSE 6MG X 2 DAYS/ 3MG X 5 DAYS F/U INR: 2 WEEKS WED HER USUAL DAY THEN ANNUAL 03/26/24 IF DOMINIQUE ON WARARIN HAVING MRI TODAY TO CHK HER BACK PAIN Patient verbalizes understanding of instructions given Anti-Coag Initial Assessment Social Hx Patient Tobacco Use Status: Never used Tobacco alcohol intake: never Alcohol intake frequency: does not drink Questionnaires HAS-BLED Does the patient had uncontrolled Hypertension?: No Does the patient have renal disease?: No Does the patient have liver disease?: No Does the patient have a history of stroke?: No Has the patient had major bleeding or predisposition to bleeding?: No Does the patient have labile INRs?: Yes Is the patient over 65 years of age?: Yes Is the patient on medications that gives them a predisposition to bleeding?: Yes Does the patient use alcohol?: No HAS-BLED Score: 3 CHADSVASC Age: 75 or over Gender: Female Does the patient have a history of CHF?: No Does the patient have a history of Hypertension?: Yes Does the patient have a history of Stroke/TIA/Thromboembolism?: No Does the patient have a history of Vascular Disease (prior WA, PAD or aortic plaque)?: Yes Does the patient have a history of Diabetes?: No CHADS VACS Score: 5 Rolando Prediction Score Rsk VTE Active Cancer: No Previous VTE, excluding superficial vein thrombosis: Yes Reduced mobility: Yes Already known Thrombophilic Condition: Yes With-in last month Trauma and/or Surgery: No Elderly 70 year or older: Yes Heart and/or Respiratory Failure: No Acute Myocardial infarction and/or Ischemic Stroke: Yes Acute Infection and/or Rheumatologic Disorder: Yes Obesity (BMI 30 or greater): No Ongoing Hormonal Treatment: No Score: 12 Rolando Score less than 4; Low Risk of VTE Rolando Score 4 or greater; High Risk of VTE Coding Level of Care Code Est Patient Level 2 Diagnoses Current use of anticoagulant therapy Z79.01 Time Spent (min) 30 Comment METER TO METER CORRALTION MED AND RISK SCORE ASSESSMENT Assessment & Plan Assessment & Plan (1) Current use of anticoagulant therapy: Code(s): Z79.01 - halfway (current) use of anticoagulants Category: Medical
== END 2023-03-22 10:23 | disposition home or self-care (01) ==
LOC: HO.ACS 09:33
PROVIDERS: PCP Internal Medicine; Visit Provider Internal Medicine
DX: Z79.01 Long term (current) use of anticoagulants (principal)

== ENCOUNTER 2023-03-22 10:19 | Outpatient (REF) | payer OTHER, SELFPAY ==
--- NOTE | ~2023-03-22 | MR_ITS ---
EXAMINATION: MR LUMBAR SPINE WITHOUT CONTRAST CLINICAL INFORMATION: L3 fracture. Assess acute or chronic. Has fractures and known osteoporosis. COMPARISON: Plain films of the lumbar spine 11/27/2022. CT scan of the abdomen and pelvis 02/02/2022. MRI scan of the lumbar spine 06/29/2021. TECHNIQUE: MRI of the lumbar spine was obtained using routine sequences without contrast. FINDINGS: VERTEBRAL BODIES AND PARASPINAL STRUCTURES: The study redemonstrates a mild grade 1 anterolisthesis of L4 on L5. There is multilevel disc desiccation. There are chronic compression fractures of the superior bodies of T11 and T12, demonstrated on prior MRI imaging. No edematous signal is seen in these vertebrae on the current study. There is a compression fracture of the body of L3, new compared to the prior MRI and CT scan, but demonstrated on the more recent plain films. There is loss of approximately 25% centrally. This vertebra has isointense signal compared to the adjacent osseous structures, consistent with a chronic fracture. No new compression fractures are demonstrated. There are small cysts along the bilateral L4 spinous processes, which have developed since the prior study. There is mild edema in the right L4-L5 facet joint, likely reactive. Overall, marrow signal is homogenous. The visualized retroperitoneal and pelvic structures are unremarkable. CONUS MEDULLARIS AND CAUDA EQUINA: Normal, terminating at the level of L1-L2. The lower thoracic spinal cord appears normal. The cauda equina nerve roots and filum terminale appear normal. SPINAL LEVELS: T11-T12: The study redemonstrates posterior protrusion of the superior body of T12 into the spinal canal without compression of the spinal cord. There is no central stenosis and the neural foramina are patent bilaterally. T12-L1: There is mild bilateral facet arthropathy. Posterior disc contour is normal and there is no central stenosis. The neural foramina are patent bilaterally. L1-L2: There is mild bilateral facet arthropathy. Disc contour is normal. There is no central stenosis or foraminal narrowing. L2-L3: There is mild bilateral facet arthropathy. There is slight posterior protrusion of the superior body of L3 into the spinal canal without significant mass effect on the thecal sac and there is no central stenosis. There are inferior foraminal disc protrusions bilaterally without definite exiting nerve root impingement. L3-L4: There is moderate to severe right and moderate left facet arthropathy. There is a shallow posterior disc protrusion with minimal flattening of the ventral thecal sac and with narrowing of the bilateral subarticular recesses. There is mild to moderate central stenosis. There are inferior foraminal disc protrusions bilaterally without definite exiting nerve root impingement. L4-L5: There is severe bilateral facet arthropathy, similar compared to prior imaging with distortion of the dorsal thecal sac bilaterally. There is unroofing of the disc as a result of the anterolisthesis. There is flattening of the ventral thecal sac and narrowing of the right greater than left subarticular recesses, similar compared to prior imaging. There is no foraminal nerve root impingement. There is moderate to severe central stenosis. L5-S1: There is severe right and moderate to severe left facet arthropathy with a right facet joint effusion. There is a shallow posterior disc protrusion with an annular fissure without significant mass effect on the thecal sac. There are bilateral foraminal disc protrusions with mild impingement on the exiting L5 nerve roots. There is no central stenosis. MR/MR lumbar spine wo con IMPRESSION: 1. There are chronic compression fractures of the bodies of T11 and T12, demonstrated on prior imaging. There is a compression fracture of L3, new compared to remote prior imaging, but with isointense marrow signal compared to adjacent structures, consistent with a chronic finding. No acute fractures are demonstrated on the current study. 2. At L4-L5 there is a grade 1 anterolisthesis secondary to severe facet arthropathy. There is narrowing of the right greater than left subarticular recesses and there is moderate to severe central stenosis. 3. At L5-S1 there is severe right and moderate to severe left facet arthropathy. There are bilateral foraminal disc protrusions impinging on the exiting L5 nerve roots. There is no central stenosis. 4. At L3-L4 there is facet arthropathy and there is a shallow posterior disc protrusion. There is narrowing of the bilateral subarticular recesses and there is mild to moderate central stenosis.
== END 2023-03-22 10:20 | disposition home or self-care (01) ==
LOC: HO.MRI 10:19
PROVIDERS: PCP Internal Medicine; Visit Provider Internal Medicine Rheumatology
DX: S32.000A Wedge compression fracture of unspecified lumbar vertebra, initial encounter for closed fracture (principal); M81.0 Age-related osteoporosis without current pathological fracture; I26.99 Other pulmonary embolism without acute cor pulmonale; Z51.81 Encounter for therapeutic drug level monitoring; Z79.01 Long term (current) use of anticoagulants
CPT/HCPCS: 72148; 85610; 99212

== ENCOUNTER 2023-03-28 14:54 | Outpatient (AMB) | payer OTHER, SELFPAY ==
[2023-03-28 15:01] VITALS: BP 152/70; PULSE 88; RESP 16; O2SAT 97; BMI 29.8
--- NOTE | 2023-03-28 15:01 | MHC.OFFVIS ---
Intake Vital Signs 03/28/23 15:01 Height 5 ft 3 in Weight 168 lb BMI 29.8 BP 152/70 H Blood Pressure Location Lt brachial Position Sitting Respiration 16 Pulse 88 Pulse Source Pulse Oximeter Pulse Oximetry (%) 97 Oxygen Delivery Method Room Air Intake Visit Reasons: Follow up after MRI (03/22/23) /Confirmed Allergies Iodinated Contrast Media [CONTRAST, IV] Allergy (Intermediate, Verified 03/28/23 15:01) SWELLING, ITCHINESS, RASH Penicillins [PENICILLINS] Allergy (Intermediate, Verified 03/28/23 15:01) ITCHINESS, RASH, SWELLING latex Allergy (Verified 03/28/23 15:01) Hives Sulfa (Sulfonamide Antibiotics) Allergy (Verified 03/28/23 15:01) Unknown zoledronic acid [From Reclast] Adverse Reaction (Verified 03/28/23 15:01) Joint Pain HPI HPI Comments History of Present Illness Details Patient presents back to the office today for follow up chronic back pain and review of recent MRI. MRI LS reviewed with patient, results as per below. Patient continues to endorse pain midline lower back, tender to palpation and worse with movement. She is not able to tolerate PT or HEP d/t the pain. She takes tylenol and NSAIDs without relief. She has never tried injections or manual manipulation by chiropractor. Prior: Vicky is a very pleasant 78 year old female who presents to the office today for evaluation and management of her chronic lower back pain. Patient was referred here by Rheum for known L3 compression fracture, age indeterminate. She is pending MRI scheduled 03/22/23. Patient reports in addition to previous pain, about 1.5 months ago she twisted and felt a crack in her back with severe pain that made her drop to her knees. She has not undergone imaging since that injury. She has been suffering with chronic lower back pain for years, currently being treated for RA, fibromyalgia, Osteoporosis and Osteoarthritis of the lumbar spine. She has been taking vitamin D, there is some confusion about alendronate that was recently prescribed by her block sawyer but patient has not been taking because she read the side effects and felt like she already takes too many medications. Patient has tried NSAIDs and tylenol without relief. Patient has not been to physical therapy recently. She has not tried injections, acupuncture or chiropractic manipulation. She does get steroid injections and NEOS for bilateral shoulders, recently stopped taking prednisone daily for RA. Pain today is rated as 7/10, constant across her lower back with radiation into lateral thighs to the level of the knees. Pain midline lumbar vertebrae over area of known compression fracture. Tender to palpation, worse with movement. She denies radiation of the pain to the toes, denies numbness, weakness or tingling of BLE. She denies new loss of bowel, bladder or saddle anesthesia. Patient does report that for atleast the last year if not longer she will lose bowel and bladder control about two times a month. She states her doctor is aware of this. In terms of muscle damage condition is described as aching, shooting, tiring, cramping, throbbing. Pain is negatively impacting patients enjoyment of life, mood, general activity, normal work, recreational activities, relationships with people, sleep and walking. Patient has a PMH of PE with current use of anticoagulants. [facility] Medical History (Updated 03/28/23 @ 16:03 by Sheila Crystal APRN, ASSISTANT BASKETBALL COACH) Leg edema Surgical History History of cholecystectomy History of appendectomy History of total abdominal hysterectomy and bilateral salpingo-oophorectomy History of bariatric surgery History of colonoscopy Family History Father Asthma Mother Rheumatoid arthritis Cardiovascular disease Social History Household Members: Family Housing: House Are you a primary hospice care sales consultant to a significant other at home: No Do you presently have visiting nurse or other home services: Yes (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 Answers questions appropriately. Fully engaged in examination. Skin: warm, dry, intact HEENT: Normocephalic. Hearing intact. Cardiac: External chest normal in appearance. Respiratory: No cough, audible wheezing or stridor. Abdomen: without gross distension. MS: No obvious swelling or deformities. Able to transition from sit to stand unassisted. Ambulates with antalgic gait tenderness to palpation over midline lumbar vertebrae and lumbar paraspinal muscles facet loading test positive bilaterally nontender to palpation over PSIS SLR with and without dorsiflexion negative bilaterally. Neurological: Oriented to person, place, time and situation. Thought process intact. Psychiatric: Appropriate mood and affect. Good judgment and insight. Results Reviewed Results Reviewed: 03/22/23 FINDINGS: VERTEBRAL BODIES AND PARASPINAL STRUCTURES: The study redemonstrates a mild grade 1 anterolisthesis of L4 on L5. There is multilevel disc desiccation. There are chronic compression fractures of the superior bodies of T11 and T12, demonstrated on prior MRI imaging. No edematous signal is seen in these vertebrae on the current study. There is a compression fracture of the body of L3, new compared to the prior MRI and CT scan, but demonstrated on the more recent plain films. There is loss of approximately 25% centrally. This vertebra has isointense signal compared to the adjacent osseous structures, consistent with a chronic fracture. No new compression fractures are demonstrated. There are small cysts along the bilateral L4 spinous processes, which have developed since the prior study. There is mild edema in the right L4-L5 facet joint, likely reactive. Overall, marrow signal is homogenous. The visualized retroperitoneal and pelvic structures are unremarkable. CONUS MEDULLARIS AND CAUDA EQUINA: Normal, terminating at the level of L1-L2. The lower thoracic spinal cord appears normal. The cauda equina nerve roots and filum terminale appear normal. SPINAL LEVELS: T11-T12: The study redemonstrates posterior protrusion of the superior body of T12 into the spinal canal without compression of the spinal cord. There is no central stenosis and the neural foramina are patent bilaterally. T12-L1: There is mild bilateral facet arthropathy. Posterior disc contour is normal and there is no central stenosis. The neural foramina are patent bilaterally. L1-L2: There is mild bilateral facet arthropathy. Disc contour is normal. There is no central stenosis or foraminal narrowing. L2-L3: There is mild bilateral facet arthropathy. There is slight posterior protrusion of the superior body of L3 into the spinal canal without significant mass effect on the thecal sac and there is no central stenosis. There are inferior foraminal disc protrusions bilaterally without definite exiting nerve root impingement. L3-L4: There is moderate to severe right and moderate left facet arthropathy. There is a shallow posterior disc protrusion with minimal flattening of the ventral thecal sac and with narrowing of the bilateral subarticular recesses. There is mild to moderate central stenosis. There are inferior foraminal disc protrusions bilaterally without definite exiting nerve root impingement. L4-L5: There is severe bilateral facet arthropathy, similar compared to prior imaging with distortion of the dorsal thecal sac bilaterally. There is unroofing of the disc as a result of the anterolisthesis. There is flattening of the ventral thecal sac and narrowing of the right greater than left subarticular recesses, similar compared to prior imaging. There is no foraminal nerve root impingement. There is moderate to severe central stenosis. L5-S1: There is severe right and moderate to severe left facet arthropathy with a right facet joint effusion. There is a shallow posterior disc protrusion with an annular fissure without significant mass effect on the thecal sac. There are bilateral foraminal disc protrusions with mild impingement on the exiting L5 nerve roots. There is no central stenosis. MR/MR lumbar spine wo con IMPRESSION: 1. There are chronic compression fractures of the bodies of T11 and T12, demonstrated on prior imaging. There is a compression fracture of L3, new compared to remote prior imaging, but with isointense marrow signal compared to adjacent structures, consistent with a chronic finding. No acute fractures are demonstrated on the current study. 2. At L4-L5 there is a grade 1 anterolisthesis secondary to severe facet arthropathy. There is narrowing of the right greater than left subarticular recesses and there is moderate to severe central stenosis. 3. At L5-S1 there is severe right and moderate to severe left facet arthropathy. There are bilateral foraminal disc protrusions impinging on the exiting L5 nerve roots. There is no central stenosis. 4. At L3-L4 there is facet arthropathy and there is a shallow posterior disc protrusion. There is narrowing of the bilateral subarticular recesses and there is mild to moderate central stenosis. Assessment & Plan Assessment & Plan (1) Osteoarthritis of lumbosacral spine: Code(s): M47.817 - Spondylosis without myelopathy or radiculopathy, lumbosacral region (2) Lumbar compression fracture: Code(s): S32.000A - Wedge compression fracture of unspecified lumbar vertebra, initial encounter for closed fracture (3) Osteoporosis: Comment: MRI lumbar spine 06/2021: Moderate benign appearing compression fracture along superior endplate T11 and T12 DEXA 01/14/2022: Osteoporosis T-score -3.5. Started on alendronate, patient did not receive medication. Prolia avoided due to latex allergy. Reclast denied by insurance company. Alendronate reordered May 2022 pharmacy did not fill due to listed allergy of bisphosphonates. Reviewed with patient, she remembered that she took Reclast in the past and had head to toe joint pain after infusion requiring hospitalization. Patient agrees to retry alendronate June 2022 - not tolerated. Prolia given 11/2022 Code(s): M81.0 - Age-related osteoporosis without current pathological fracture (4) Facet arthritis of lumbar region: Code(s): M47.816 - Spondylosis without myelopathy or radiculopathy, lumbar region Plan Vicky is a very pleasant 78 year old female who presented to the office today for follow up chronic lower back pain and review of recent MRI. MRI reviewed with patient, L3 compression fracture chronic therefore kyphoplasty is not warranted. She is suffering from significant facet arthropathy that has failed conservative treatment including NSAIDs, tylenol and prescription medications. She is not able to participate in PT/HEP due to her significant pain exacerbated with movement and touch. 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 Discussed options for treatment including diagnostic interventional testing, epidural steroid injections, peripheral nerve stimulation with Sprint, RFA and more permanent neuromodulation. Informational pamphlets provided. Given patient's history of osteoporosis with compression fractures treatment with steroids should be avoided if possible. Will schedule for fluoroscopy guided bilateral L3 L4 DR L5 MBBs with local anesthetic. If patient reports improvement in pain, mobility and function will plan for L3 MB Sprint PNS, left side first with right side to follow 2 weeks after. All questions and concerns have been answered and patient agrees with the plan. Follow up after injections, sooner if needed. Medications: New gabapentin 100 mg PO TID 90 caps 0RF Coding Level of Care Code Est Pt Level 4 (61159) Diagnoses Osteoarthritis of lumbosacral spine M47.817 Lumbar compression fracture S32.000A Osteoporosis M81.0 Facet arthritis of lumbar region M47.816
== END 2023-03-28 15:35 | disposition home or self-care (01) ==
PROVIDERS: PCP Internal Medicine; Visit Provider Registered Nurse Emergency
DX: M47.817 Spondylosis without myelopathy or radiculopathy, lumbosacral region (principal); S32.000A Wedge compression fracture of unspecified lumbar vertebra, initial encounter for closed fracture; M81.0 Age-related osteoporosis without current pathological fracture; M47.816 Spondylosis without myelopathy or radiculopathy, lumbar region
CPT/HCPCS: 99214

== ENCOUNTER → 2023-03-28 14:54 | Outpatient (BNVA) | payer OTHER, SELFPAY | PROVIDERS: PCP Internal Medicine; Visit Provider Registered Nurse Emergency | DX: M47.817 Spondylosis without myelopathy or radiculopathy, lumbosacral region (principal); M47.816 Spondylosis without myelopathy or radiculopathy, lumbar region; M81.0 Age-related osteoporosis without current pathological fracture; S32.030D Wedge compression fracture of third lumbar vertebra, subsequent encounter for fracture with routine healing | CPT/HCPCS: 99212 ==

== ENCOUNTER → 2023-04-04 11:14 | Outpatient (BNVA) | payer OTHER, SELFPAY | PROVIDERS: PCP Internal Medicine; Visit Provider Internal Medicine ==

== ENCOUNTER 2023-04-09 13:15 | Outpatient (REF) | payer OTHER, SELFPAY ==
[2023-04-09 13:36] LABS: MANUAL DIFF FLAG NO
[2023-04-09 14:46] LABS: Basophils Percent Auto 0.8 % (0-2); Eosinophils Absolute Auto 0.2 X10*3/uL (0.0-0.4); Eosinophils Percent Auto 4.6 % (0-4); Hematocrit 37.4 % (37.0-47.0); Hemoglobin 11.1 g/dl (12.0-16.0); Imm Gran Abs Auto 0.01 X10*3/uL (0.00-0.03); Imm Gran Pct Auto 0.2 % (0.0-0.4); Lymphocytes Absolute Auto 2.2 X10*3/uL (1.2-4.9); Lymphocytes Percent Auto 46.9 % (20-40); Mean Corpuscular HGB Conc 29.7 g/dl (31.0-35.0); Mean Corpuscular Hemoglobin 24.3 pg (27.0-33.0); Mean Platelet Volume 10.5 fL (9.4-12.3); Monocytes Absolute Auto 0.5 X10*3/uL (0.1-1.2); Monocytes Percent Auto 11.1 % (2-11); Neutrophils Absolute Auto 1.7 x10*3/uL (2.0-8.3); Neutrophils Percent Auto 36.4 % (45-73); Platelet Count 378 X10*3/uL (160-400); Red Blood Count 4.56 X10*6/uL (4.20-5.50); Red Cell Distribution Width 16.6 % (11.0-16.0); White Blood Count 4.8 X10*3/uL (4.8-10.8)
[2023-04-09 15:24] LABS: Alanine Aminotransferase 8 U/L (0-31); Albumin Level 3.5 g/dL (3.5-5.0); Alkaline Phosphatase 74 U/L (39-117); Anion Gap 10 (12-20); Aspartate Amino Transferase 23 U/L (5-31); Bilirubin Total 0.5 mg/dL (0.0-1.0); Blood Urea Nitrogen 14 mg/dL (9-16); C Reactive Protein 0.63 mg/dL (< or = 0.50); Calcium 9.2 mg/dL (8.4-10.2); Carbon Dioxide 28 mmol/L (22-29); Chloride 108 mmol/L (96-108); Estimated Glomerular Filt Rate > 60; Glucose Random 70 mg/dL (60-115); Potassium 4.2 mmol/L (3.3-5.1); Sodium 142 mmol/L (135-145)
[2023-04-09 16:05] LABS: Erythrocyte Sedimentation Rate 36 MM/HR (0-20)
== END 2023-04-09 13:16 | disposition home or self-care (01) ==
LOC: HO.LAB 13:15
PROVIDERS: PCP Internal Medicine; Visit Provider Internal Medicine Rheumatology
DX: M05.9 Rheumatoid arthritis with rheumatoid factor, unspecified (principal); Z79.899 Other long term (current) drug therapy
CPT/HCPCS: 36415; 80053; 85025; 85652; 86140

== ENCOUNTER 2023-04-16 11:04 | Outpatient (AMB) | payer OTHER, SELFPAY ==
[2023-04-16 11:11] VITALS: BP 138/70; PULSE 74; TEMP 36.1; BMI 30.4
--- NOTE | 2023-04-16 11:11 | MHC.OFFVIS ---
Intake Vital Signs 04/16/23 11:11 Height 5 ft 3 in Weight 171 lb 8.314 oz BMI 30.4 BP 138/70 Blood Pressure Location Rt brachial Position Sitting Pulse 74 Pulse Source Palpation Temp 97 F Temp Source Skin Intake Visit Reasons: ra Intake Note: Patient presents today to follow up on RA. Reports pain in all bones . Reports sternum and back pain when breathing. Reports hurting are getting really cold and are turning white. Reports her legs get really cold too. Senior Environmental Consultant Required: Yes Senior Environmental Consultant Language: Pastry Wrapper Name: Yolanda-daughter in law Information Interpreted: non-clinical & clinical Accompanied by: daughter in law Allergies Iodinated Contrast Media [CONTRAST, IV] Allergy (Intermediate, Verified 04/16/23 11:11) SWELLING, ITCHINESS, RASH Penicillins [PENICILLINS] Allergy (Intermediate, Verified 04/16/23 11:11) ITCHINESS, RASH, SWELLING latex Allergy (Verified 04/16/23 11:11) Hives Sulfa (Sulfonamide Antibiotics) Allergy (Verified 04/16/23 11:11) Unknown zoledronic acid [From Reclast] Adverse Reaction (Verified 04/16/23 11:11) Joint Pain Medication List - Last Reconciled 04/16/23 by Thierno Ghotra MD acetaminophen (Mapap (acetaminophen)) 500 mg PO DAILY albuterol sulfate 90 mcg/actuation (ProAir HFA) 2 puffs inhalation Q4H PRN calcium carbonate (Calcium) 600 mg PO DAILY cholecalciferol (vitamin D3) 50 mcg PO DAILY clotrimazole-betamethasone 1-0.05 % 1 appl topical DAILY denosumab (Prolia) 60 mg subcut [id number] diclofenac sodium 1% 4 grams topical BID duloxetine 60 mg PO DAILY enalapril maleate 20 mg PO BID folic acid 1 mg PO DAILY gabapentin 100 mg PO TID hydrochlorothiazide 12.5 mg PO DAILY hydrocortisone 1% 1 appl topical DAILY lorazepam 0.5 mg PO DAILY PRN meclizine 25 mg PO Q6H PRN methotrexate sodium 7.5 mg (3 x 2.5 mg) PO QWEEK metoprolol succinate ER 50 mg PO DAILY multivitamin 1 tab PO DAILY ondansetron HCl 4 mg PO Q8H PRN 4 days pantoprazole 40 mg PO DAILY@0630 pravastatin 20 mg PO DAILY sennosides (Natural Senna Laxative) 8.6 mg PO BEDTIME temazepam 30 mg PO BEDTIME PRN warfarin 6 mg See Protocol PO MOWEFR@1800 HPI HPI Comments History of Present Illness Details The patient returns with her daughter for evaluation of her rheumatoid arthritis, fibromyalgia, osteoporosis and osteoarthritis. The daughter translates for us. The patient again reports widespread pain in most bones and muscles. She is having a fair amount of lower back, upper back and some costal pain bilaterally. This is more with movements of the torso. There is also pain in the knees, buttocks and down the legs. She seems to be tolerating the methotrexate at 7.5 mg weekly with 1 mg daily folic acid. She is also on duloxetine 60 mg daily, acetaminophen 500 q.i.d., and recently gabapentin was added by pain management. Gabapentin dose currently is 100 mg t.i.d.. It is not seemingly causing any daytime or nighttime sedation. She has discomfort at night that keeps her from sleeping. Most of this is in the lower back and upper back regions. She did have an MRI done of the spine. There are multiple compression fracture seen but none that looked acute. [facility] Medical History (Updated 03/28/23 @ 16:03 by Sheila Crystal APRN, HEARING SCREEN COORDINATOR) Leg edema Surgical History History of cholecystectomy History of appendectomy History of total abdominal hysterectomy and bilateral salpingo-oophorectomy History of bariatric surgery History of colonoscopy Family History Father Asthma Mother Rheumatoid arthritis Cardiovascular disease Social History Household Members: Family Housing: House Are you a primary healthcare interpreter to a significant other at home: No Do you presently have visiting nurse or other home services: Yes (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 Negative for appetite change, weight change, fever, chills, malaise Eyes Details: Negative for vision change, dry eyes,headaches and dizziness Card Details: Negative chest pain, edema and syncope Resp Details: Negative for SOB, cough and wheezing GI Details: Negative indigestion/heartburn, nausea, abdominal pain, bowel changes, diarrhea, constipation and bloody stool. Details: Negative for dysuria, hematuria, nocturia, decreased force/flow and genital discharge Endo Details: Negative for polyuria and polydypsia Manuel/Lymph Details: Negative for excessive bruising or bleeding. Physical Exam Vital Signs: Last Vital Signs Temp 97 F 04/16/23 11:11 Pulse 74 04/16/23 11:11 BP 138/70 04/16/23 11:11 BMI result Body Mass Index 30.4 APPEARANCE: Patient in no acute distress EYES no redness, pupils equal and reactive to light, eyelids normal. No temporal artery tenderness, redness or swelling. NECK: No thyromegaly or masses, no adenopathy, trachea midline. HEART: Regulrar rhythm, S1-S2 heard, no murmurs, rubs or gallops. LUNG: Clear to percussion and auscultation ABD: Normal bowel sounds, no organomegaly, masses or tenderness. EXTREMITIES: No edema, no calf tenderness, normal peripheral pulses. NEURO: Oriented and alert x3. No focal weakness. Reflexes symmetric. Gait normal. SKIN: Some hyperpigmentation over the dorsum of the foot and the malleoli bilaterally. This looks like old venous stasis disease. There are no inflammatory or neoplastic lesions. JOINT EXAM: Cervical Spine:.? Mild pains at the extremes of normal range of motion. Mild cervical muscle tenderness. Thoracic Spine:.? No scoliosis.? No tenderness on palpation. Lumbar Spine:.? Alignment normal.? Moderate pain with flexion beyond 45 degrees or with attempts at hyperextension. She has much pain and difficulty lying on the table. There is phxh-le-[id number] tenderness throughout the whole the spine but the pain is more prominent in the lumbar region. Chest Wall:.? Mild to moderate tenderness along the right costal margin; milder discomfort with pressure on the left costal margin. No redness, bruising or swelling seen. Hands:.? Right: Pain-free range of motion with some mild swelling in the 1st 3 MCP joints. These are not tender. There is also slight tenderness at the 2nd through 4th PIP joints which have some slight bony enlargement. There is no soft tissue swelling, redness or warmth. There is no flexor tendon triggering, thenar atrophy or sensory loss. Left: Normal pain-free range of motion with mild swelling in the 1st 2 MCP joints. These are slightly tender. There is also slight bony enlargement however in all the other small joints in the hand. There are no other joints however that have tenderness There is no redness, warmth, thenar atrophy, flexor tendon triggering, or sensory loss. Wrists: Slight pain with flexion extension at 80 degrees with some mild tenderness but no swelling, increased warmth or erythema. Elbows:. Normal pain-free range of motion with mild lateral epicondylar tenderness. Over the joint spaces there is no tenderness, swelling, increased warmth or erythema. Shoulders:.?? Right: Moderate pain with abduction 135 degrees or with attempts at internal and external rotation greater than 20 degrees. Mild anterior tenderness with questionable abductor weakness but no adenopathy or swelling. Left: Mild pain with abduction 150 degrees or with attempts at internal or external rotation greater than 20 degrees. There is mild anterior tenderness without abductor weakness, swelling or adenopathy. Hips:.? Range of motion is intact but causes moderate lumbar pain with extremes of normal internal or external rotation. No groin pain with motion. Hip bursa:.? Mild trochanteric tenderness. Knees:.??Right: Slight pain with extremes of flexion or extension with some mild medial compartment tenderness. There is mild patellofemoral crepitus but no redness or effusion. Left: Slight pain with the extremes of normal flexion or extension. Pain is worse with weight-bearing. There is mild to moderate medial tenderness without redness or effusion. There is mild patellofemoral crepitus with no popliteal swelling or tenderness. Ankles: There is mild pain with inversion, eversion, or AP motion. There is mild soft tissue swelling on the medial and lateral aspects with [id number] tenderness. No redness or warmth. Feet:.? Normal pain-free range of motion with mild 1st MTP bony enlargement with slight tenderness in those joints. Elsewhere there is no tenderness, swelling, increased warmth or erythema. Tender points:? Mild tenderness to digital palpation at the occiput, trapezius, second rib, lateral epicondyle, knees, greater trochanter and gluteal area bilaterally. Results Reviewed Results Reviewed: Laboratory Tests 04/09/23 13:34 WBC 4.8 Hgb 11.1 L Absolute Neuts (auto) 1.7 L Creatinine 0.80 AST 23 ALT 8 C-Reactive Protein 0.63 H Assessment & Plan Assessment & Plan (1) Fibromyalgia: Code(s): M79.7 - Fibromyalgia (2) Osteoarthritis of lumbosacral spine: Code(s): M47.817 - Spondylosis without myelopathy or radiculopathy, lumbosacral region (3) Osteoporosis: Comment: MRI lumbar spine 06/2021: Moderate benign appearing compression fracture along superior endplate T11 and T12 DEXA 01/14/2022: Osteoporosis T-score -3.5. Started on alendronate, patient did not receive medication. Prolia avoided due to latex allergy. Reclast denied by insurance company. Alendronate reordered May 2022 pharmacy did not fill due to listed allergy of bisphosphonates. Reviewed with patient, she remembered that she took Reclast in the past and had head to toe joint pain after infusion requiring hospitalization. Patient agrees to retry alendronate June 2022 - not tolerated. 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 06/2020 Low dose methothrexate - partial effective so Kevzara started July 2020- discontinued June 2022 due to neutropenia and leukopenia Methotrexate: January 2020 discontinued 06/2022 due to neutropenia. Out of touch in [place] 06/2022 to 11/2022. MTx restarted 02/2023 Code(s): M05.9 - Rheumatoid arthritis with rheumatoid factor, unspecified Plan Rheumatoid arthritis with still widespread pains. I do not however see much sign of active inflammatory disease in the small joints. Additionally the CRP has improved. There was concern when we restarted the methotrexate about possible leukopenia but that does not seem to be the case as her white count looks good. We will continue with the 7.5 mg methotrexate weekly. The patient has many other pains consistent with lumbar osteoarthritis and fibromyalgia. She is already on some antidepressant medication but I think she could tolerate a bit higher dose of the gabapentin at night so I changed the prescription to 100 b.i.d. and 200 q.h.s. for now. She also has seen Pain Management they are considering corticosteroid injections in the back. Lab work before the next visit in about 6 weeks seems reasonable. She would also be due for the next dose of Prolia at the end of April. Orders: Orders Erythrocyte Sedimentation Rate Today M05.9 - Rheumatoid arthritis with rheumatoid factor, unspecified C Reactive Protein Today M05.9 - Rheumatoid arthritis with rheumatoid factor, unspecified Alanine Aminotransferase Today Z79.899 - Other chcf (current) drug therapy Aspartate Amino Transferase Today Z79.899 - Other chcf (current) drug therapy Complete Blood Count Auto Diff Today Z79.899 - Other regional intermodal truck driver (current) drug therapy Creatinine Today Z79.899 - Other chcf (current) drug therapy Medications: Changed From gabapentin 100 mg PO TID 90 caps 0RF M79.7 - Fibromyalgia To gabapentin one cap twice a day and two at bedtime 120 caps 1RF M79.7 - Fibromyalgia Coding Level of Care Code Est Pt Level 3 (10918) Diagnoses Fibromyalgia M79.7 Osteoarthritis of lumbosacral spine M47.817 Osteoporosis M81.0 correction methotrexate user Z79.899 Seropositive rheumatoid arthritis M05.9
== END 2023-04-16 11:48 | disposition home or self-care (01) ==
PROVIDERS: PCP Internal Medicine; Visit Provider Internal Medicine Rheumatology
DX: M05.79 Rheumatoid arthritis with rheumatoid factor of multiple sites without organ or systems involvement (principal); M79.7 Fibromyalgia; M47.817 Spondylosis without myelopathy or radiculopathy, lumbosacral region; M81.0 Age-related osteoporosis without current pathological fracture; Z79.899 Other long term (current) drug therapy
CPT/HCPCS: 99214

== ENCOUNTER → 2023-04-16 11:04 | Outpatient (BNVA) | payer OTHER, SELFPAY | PROVIDERS: PCP Internal Medicine; Visit Provider Internal Medicine Rheumatology | DX: M79.7 Fibromyalgia (principal); M47.817 Spondylosis without myelopathy or radiculopathy, lumbosacral region; M81.0 Age-related osteoporosis without current pathological fracture; M05.9 Rheumatoid arthritis with rheumatoid factor, unspecified; Z79.899 Other long term (current) drug therapy | CPT/HCPCS: 99212 ==

== ENCOUNTER → 2023-04-18 13:29 | Outpatient (BNVA) | payer OTHER, SELFPAY | PROVIDERS: PCP Internal Medicine; Visit Provider Internal Medicine ==

== ENCOUNTER → 2023-04-25 10:44 | Outpatient (BNVA) | payer OTHER, SELFPAY | PROVIDERS: PCP Internal Medicine; Visit Provider Internal Medicine ==

== ENCOUNTER 2023-05-08 06:12 | Outpatient (REF) | payer OTHER, SELFPAY | END 2023-05-08 06:13 | disposition home or self-care (01) | LOC: CF 06:12 | PROVIDERS: Visit Provider Anesthesiology | DX: M79.7 Fibromyalgia (principal); M47.817 Spondylosis without myelopathy or radiculopathy, lumbosacral region; M81.0 Age-related osteoporosis without current pathological fracture; M05.9 Rheumatoid arthritis with rheumatoid factor, unspecified; D68.59 Other primary thrombophilia; Z79.01 Long term (current) use of anticoagulants; Z86.711 Personal history of pulmonary embolism; Z79.899 Other long term (current) drug therapy | CPT/HCPCS: 99212 ==

== ENCOUNTER 2023-05-08 14:46 | Outpatient (AMB) | payer OTHER, SELFPAY ==
--- NOTE | 2023-05-08 14:47 | A.OFFVIS_ITS ---
Intake Vital Signs 05/08/23 14:48 Height 5 ft 3 in Weight 171 lb BMI 30.3 BP 110/90 H Blood Pressure Location Lt brachial Position Sitting Respiration 14 Pulse 61 Pulse Source Pulse Oximeter Pulse Oximetry (%) 97 Oxygen Delivery Method Room Air Comment pre-op Intake Visit Reasons: BILATERAL DIAGNOSTIC L3, L4, DRL5 MBB Allergies Iodinated Contrast Media [CONTRAST, IV] Allergy (Intermediate, Verified 05/08/23 14:49) SWELLING, ITCHINESS, RASH Penicillins [PENICILLINS] Allergy (Intermediate, Verified 05/08/23 14:49) ITCHINESS, RASH, SWELLING latex Allergy (Verified 05/08/23 14:49) Hives Sulfa (Sulfonamide Antibiotics) Allergy (Verified 05/08/23 14:49) Unknown zoledronic acid [From Reclast] Adverse Reaction (Verified 05/08/23 14:49) Joint Pain HPI HPI Comments History of Present Illness Details Vicky is a very pleasant 78 year old female who presents to the injection site today for the performance of bilateral medial branch block diagnostic. 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 Barajas trauma surgeon oncologist with the current treatment by warfarin. Her dosage of warfarin is 6 mg on Sunday and Sunday and 3 mg on any other day q.d. she received a clearance and stopped warfarin 5 days ago. She reported today with complains on left-sided chest pain with radiation to the back. She has a history of : past medical hx of RA,hypertension, pulmonary embolism currently on warfarin INR checked upstairs 3.1 today, PVC GERD and? rheumatoid arthritis. On physical exam today there is no shortness of breath, O2 sat 97% on room air, heart rate is 62, stable blood pressure 110/ 90 mm Hg. She has a history of ICU admission twice secondary to pulmonary embolism. Recommendations are: Restart warfarin lianet. Take 6 mg of warfarin today tomorrow and after tomorrow. After that resume regular doses of warfarin. Using our office photographic processor Leah I explained to the patient very thoroughly that if her pain will start to be stronger, if she will develop shortness of breath, blue skin discoloration, she needs to go to emergency room by ambulance today for the emergency treatment of pulmonary embolism. The procedure is not recommended because: 1. Patient has moderate to severe chest pain, this obviously will interfere with her perception of lower back pain therefore the procedure will be diagnostically invalid. 2. The patient is not well enough for el ective procedure. If she will continue to experienced chest pain, if chest pain will become more severe, if she will develop symptoms described as above she might need emergency intervention in the emergency room and not elective procedure in the office. Next appointment in 1 week. I will prescribe the patient Lovenox bridge in the order to prepare her for the procedure-as above. 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) Alcohol intake: never Patient Tobacco Use Status: Never used Tobacco Advance Directives Date on File: 03/17/20 service: No Current occupational status: disabled Review of Systems Const All systems reviewed & are unremarkable except as noted in HPI and below Physical Exam Vital Signs: Last Vital Signs Pulse 61 05/08/23 14:48 Resp 14 05/08/23 14:48 BP 110/90 H 05/08/23 14:48 Pulse Ox 97 05/08/23 14:48 Oxygen Delivery Method Room Air 05/08/23 14:48 BMI result Body Mass Index 30.3 Results AMB INR Fingerstick AMB INR Fingerstick 1.0 Last Edit by Argenis Cruz RN on 05/08/23 11:26 MD AWARE PT OFF WARFARIN FOR A PROCEDURE Argenis Cruz 05/08/23 11:26 HOME METER Assessment & Plan Assessment & Plan (1) Fibromyalgia: Code(s): M79.7 - Fibromyalgia (2) Osteoarthritis of lumbosacral spine: Code(s): M47.817 - Spondylosis without myelopathy or radiculopathy, lumbosacral region (3) Osteoporosis: Comment: MRI lumbar spine 06/2021: Moderate benign appearing compression fracture along superior endplate T11 and T12 DEXA 01/14/2022: Osteoporosis T-score -3.5. Started on alendronate, patient did not receive medication. Prolia avoided due to latex allergy. Reclast denied by insurance company. Alendronate reordered May 2022 pharmacy did not fill due to listed allergy of bisphosphonates. Reviewed with patient, she remembered that she took Reclast in the past and had head to toe joint pain after infusion requiring hospitalization. Patient agrees to retry alendronate June 2022 - not tolerated. 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 Patient is strongly recommended to go to emergency room if her condition will progress and she will become short of breath. 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
[2023-05-08 14:48] VITALS: BP 110/90; PULSE 61; RESP 14; O2SAT 97; BMI 30.3
== END 2023-05-08 14:51 | disposition home or self-care (01) ==
LOC: HO.PMCPRC 14:46
PROVIDERS: PCP Internal Medicine; Visit Provider Anesthesiology
DX: M79.7 Fibromyalgia (principal); M47.817 Spondylosis without myelopathy or radiculopathy, lumbosacral region; M81.0 Age-related osteoporosis without current pathological fracture; Z79.631 Long term (current) use of antimetabolite agent; M05.79 Rheumatoid arthritis with rheumatoid factor of multiple sites without organ or systems involvement; Z86.711 Personal history of pulmonary embolism; Z79.01 Long term (current) use of anticoagulants
CPT/HCPCS: 99213

== ENCOUNTER → 2023-05-11 14:56 | Outpatient (BNVA) | payer OTHER, SELFPAY | PROVIDERS: PCP Internal Medicine; Visit Provider Internal Medicine ==

== ENCOUNTER → 2023-05-15 11:19 | Outpatient (BNVA) | payer OTHER, SELFPAY | PROVIDERS: PCP Internal Medicine; Visit Provider Internal Medicine ==

== ENCOUNTER 2023-05-15 18:11 | Emergency (ER) | payer OTHER, SELFPAY ==
--- NOTE | ~2023-05-15 | XR_ITS ---
EXAMINATION: XR CHEST CLINICAL INFORMATION: Shortness of breath COMPARISON: Chest radiograph [id number] TECHNIQUE: Frontal view of the chest was obtained. FINDINGS: The heart is mildly enlarged. There is no evidence of CHF. Left basilar atelectasis is present. There is a rounded density overlying the right hilum which probably represents the pulmonary artery, but a lymph node or mass cannot be entirely excluded. No consolidations or pleural effusions are seen. EKG leads overlie the mediastinum. XR/XR chest 1V IMPRESSION: 1. No acute intrathoracic disease. 2. Rounded density overlying the right hilum as described above. Inspiratory PA and lateral chest would be useful when the patient is stable. Alternatively, a contrast enhanced CT scan of the chest could be performed to exclude a mass.
--- NOTE | ~2023-05-15 | XR_ITS ---
EXAMINATION: XR CHEST CLINICAL INFORMATION: Shortness of breath with question of a hilar mass seen on prior portable AP chest radiograph COMPARISON: Portable chest radiograph earlier today at 7:32 PM TECHNIQUE: Lateral view of the chest was obtained. FINDINGS: No significant abnormality is noted in the lateral radiograph aside from some probable right middle lobe atelectasis. XR/XR chest 1V IMPRESSION: Unremarkable examination. A mass is not seen on the lateral radiograph.
[2023-05-15 18:26] VITALS: BP 159/76; BP 170/85; PULSE 71; PULSE 80; RESP 18; TEMP 36.9; O2SAT 100; O2SAT 99; BMI 32.8
--- NOTE | 2023-05-15 18:41 | ECG_ITS ---
Test Reason : CHEST PAIN Blood Pressure : / mmHG Vent. Rate : 076 BPM Atrial Rate : 076 BPM P-R Int : 124 ms QRS Dur : 072 ms QT Int : 420 ms P-R-T Axes : 042 -12 019 degrees QTc Int : 472 ms Normal sinus rhythm Normal ECG When compared with ECG of 02-FEB-2022 10:33, No significant change was found Referred By: Generic ED Physician Electronically Signed By:VALENTE PETTY MD
--- NOTE | 2023-05-15 19:40 | ED_ITS ---
HPI - Chest Pain General Chief Complaint: Chest Pain Stated Complaint: chest pain, elevated INR Source: patient Mode of arrival: ambulatory Limitations: no limitations History of Present Illness HPI narrative: Patient history of PE on long-term Coumadin rheumatoid arthritis, hypertension been complaining of left-sided chest pain for last 1 week which increases on movement and taking deep breaths patient stopped taking Coumadin 5 days ago for spinal procedure but pain started prior to that patient does have pain all over does have cough mostly dry feels slightly congested no fever or chills Related Data Home Medications Medication Instructions Recorded Confirmed albuterol sulfate 90 mcg/actuation 2 puff inhalation Q4H PRN Asthma 03/11/20 05/11/23 aerosol inhaler (ProAir HFA) enalapril maleate 20 mg tablet 20 mg PO BID 03/11/20 05/11/23 temazepam 30 mg capsule 30 mg PO BEDTIME PRN Insomnia 03/11/20 05/11/23 pantoprazole 40 mg tablet,delayed 40 mg PO DAILY@0630 09/01/20 05/11/23 release duloxetine 60 mg capsule,delayed 60 mg PO DAILY 04/14/21 05/11/23 release lorazepam 0.5 mg tablet 0.5 mg PO DAILY PRN Anxiety 04/14/21 05/11/23 metoprolol succinate 50 mg 50 mg PO DAILY 07/14/21 05/11/23 tablet,extended release 24 hr multivitamin 1 tab PO DAILY 08/29/21 05/11/23 diclofenac sodium 1 % topical gel 4 g topical BID 01/05/22 05/11/23 calcium carbonate 600 mg calcium 600 mg PO DAILY 01/31/22 05/11/23 (1,500 mg) tablet (Calcium) warfarin 3 mg tablet 6 mg PO MOWEFR@1800 01/31/22 05/15/23 acetaminophen 500 mg capsule 500 mg PO DAILY 11/09/22 05/11/23 (Mapap (acetaminophen)) denosumab 60 mg/mL subcutaneous 60 mg subcut [id number] 12/20/22 05/11/23 syringe (Prolia) clotrimazole-betamethasone 1 1 appl topical DAILY 02/02/23 05/11/23 %-0.05 % topical cream hydrocortisone 1 % topical cream 1 appl topical DAILY 02/02/23 05/11/23 with perineal applicator hydrochlorothiazide 12.5 mg tablet 12.5 mg PO DAILY 02/14/23 05/11/23 pravastatin 20 mg tablet 20 mg PO DAILY 04/16/23 05/11/23 Previous Rx's Medication Instructions Recorded meclizine 25 mg tablet 25 mg PO Q6H PRN dizziness #10 tabs 02/06/22 ondansetron HCl 4 mg tablet 4 mg PO Q8H PRN nausea and 02/06/22 vomiting 4 days #10 tabs sennosides 8.6 mg tablet (Natural 8.6 mg PO BEDTIME constipation #90 07/13/22 Senna Laxative) tabs cholecalciferol (vitamin D3) 50 50 mcg PO DAILY #90 caps 11/13/22 mcg (2,000 unit) capsule methotrexate sodium 2.5 mg tablet 7.5 mg (3 x 2.5 mg) PO QWEEK #36 04/04/23 tabs folic acid 1 mg tablet 1 mg PO DAILY #90 tabs 04/05/23 gabapentin 100 mg capsule See Rx Instructions .Route 04/16/23 .COMPLEX #120 caps benzonatate 200 mg capsule 200 mg PO TID PRN cough #20 caps 05/15/23 tramadol 50 mg tablet 50 mg PO Q6H PRN pain #20 tabs 05/15/23 Allergies Allergy/AdvReac Type Severity Reaction Status Date / Time Iodinated Contrast Media Allergy Intermediate SWELLING, Verified 05/15/23 18:39 [CONTRAST, IV] ITCHINESS, RASH Penicillins [PENICILLINS] Allergy Intermediate ITCHINESS, Verified 05/15/23 18:39 RASH, SWELLING latex Allergy Hives Verified 05/15/23 18:39 Sulfa (Sulfonamide Allergy Unknown Verified 05/15/23 18:39 Antibiotics) zoledronic acid AdvReac Joint Pain Verified 05/15/23 18:39 [From Reclast] Review of Systems 2 Review of Systems: Yes all other systems are reviewed and are negative PMFSH Past Medical History Medical History (Updated 05/16/23 @ 00:02 by Aldair Teague) Leg edema Surgical History History of cholecystectomy History of appendectomy History of total abdominal hysterectomy and bilateral salpingo-oophorectomy History of bariatric surgery History of colonoscopy Family History Family History Father Asthma Mother Rheumatoid arthritis Cardiovascular disease Social History Social History Household Members: Family Housing: House Are you a primary neurocritical care physician to a significant other at home: No Do you presently have visiting nurse or other home services: Yes (PT 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 a [employer]) Alcohol intake: never Patient Tobacco Use Status: Never used Tobacco Advance Directives: No Advance Directives Information Provided: No Advance Directives Date on File: 03/17/20 service: No Current occupational status: disabled Physical Exam 2 Vital Signs: Vital Signs: Last Vital Signs Temp 98.3 F 05/15/23 22:19 Pulse 83 05/15/23 22:19 Resp 16 05/15/23 22:19 BP 155/70 H 05/15/23 22:19 Pulse Ox 98 05/15/23 22:19 O2 Del Method Room Air 05/15/23 22:19 BMI result Body Mass Index 32.8 Appearance: Alert. Oriented X3. No acute distress. Eyes: No pallor or icterus ENT: Pharynx normal. Oral Mucosa moist Neck: Normal inspection. Neck supple. CVS: Normal heart rate and rhythm. Pulses normal. Respiratory: No respiratory distress. Equal air entry bilateral, no wheezing/rales/rhonchi left chest wall tenderness Abdomen: Soft and nontender. Bowel sounds are present, no mass palpable, no CVA tenderness Skin: Skin warm and dry. Normal skin color. Normal skin turgor. Extremities: No lower extremity edema. No calf tenderness Neuro: Oriented X 3. No motor deficit. No sensory deficit.No cerebellar signs , cranial nerves II-XII intact Medications Administered Discontinued Medications Generic Name Dose Route Start Last Admin Trade Name Freq PRN Reason Stop Dose Admin Tramadol HCl 50 mg 05/15/23 22:23 05/15/23 23:23 Tramadol Hcl 50 Mg Tablet PO 05/15/23 22:24 Not Given ONCE ONE Medical Decision Making Medical Decision Making MDM Narrative: Patient atypical left-sided chest pain for 1 week negative troponin negative D- dimer no acute ischemic changes COVID 19 was positive likely has musculoskeletal no hypoxia patient advised to take for pain and follow with PCP patient saturating 98% at room air Differential Diagnosis Differential Diagnoses: The differential diagnosis associated with the presentation includes ACS/PE/pneumonia/pleurisy Lab Data MDM Lab Attestation statement: I reviewed the patient's lab results. 05/15/23 19:17 05/15/23 19:17 Labs: Lab Results 05/15/23 05/15/23 05/15/23 Range/Units 19:17 20:51 20:55 WBC 4.8 (4.8-10.8) X10*3/uL RBC 4.66 (4.20-5.50) X10*6/uL Hgb 11.3 L (12.0-16.0) g/dl Hct 37.2 (37.0-47.0) % MCV 79.8 L (80.0-98.0) fL MCH 24.2 L (27.0-33.0) pg MCHC 30.4 L (31.0-35.0) g/dl RDW 16.2 H (11.0-16.0) % Plt Count 203 D (160-400) X10*3/uL MPV 9.3 L (9.4-12.3) fL Immature Gran % (Auto) 0.0 (0.0-0.4) % Neut % (Auto) 41.1 L (45-73) % Lymph % (Auto) 42.4 H (20-40) % [place] % (Auto) 10.3 (2-11) % Eos % (Auto) 5.4 H (0-4) % Baso % (Auto) 0.8 (0-2) % Lymph # (Auto) 2.1 (1.2-4.9) X10*3/uL [place] # (Auto) 0.5 (0.1-1.2) X10*3/uL Eos # (Auto) 0.3 (0.0-0.4) X10*3/uL Baso # (Auto) 0.0 (0.0-0.2) X10*3/uL Abs Immat Gran (auto) 0.00 (0.00-0.03) X10*3/uL Absolute Neuts (auto) 2.0 (2.0-8.3) x10*3/uL Absolute Nucleated RBC 0.000 (0.0-0.012) X10*3/uL Nucleated RBC % (auto) 0.0 (0.0-0.2) /100WBC PT 22.9 H (11.1-13.3) SEC INR 1.9 H (0.9-1.1) D-Dimer High Sensitivty < 150 NG/ML Sodium 143 (135-145) mmol/L Potassium 4.2 (3.3-5.1) mmol/L Chloride 110 H (96-108) mmol/L Carbon Dioxide 26 (22-29) mmol/L Anion Gap 11 L (12-20) BUN 14 (9-16) mg/dL Creatinine 0.81 (0.5-1.4) mg/dL Estim Creat Clear Calc 58.7 Estimated GFR > 60 Random Glucose 79 (60-115) mg/dL Calcium 9.1 (8.4-10.2) mg/dL Troponin I High Sens < 2.7 (<3.5-17.0) ng/L Influenza Type A (PCR) NEGATIVE (Negative) Influenza Type B (PCR) NEGATIVE (Negative) RSV RNA Qual (PCR) NEGATIVE (Negative) SARS-CoV-2 RNA (RT-PCR) POSITIVE A (Negative) Independent Interpretation I performed an independent interpretation of an: EKG and Plain X-Ray Interpretation: Normal sinus rhythm heart rate 76 beats per minute normal interval normal axis no acute ST T-wave changes no acute ischemic Radiology Impression Discussion of test interpretation with radiology: I have reviewed the radiologist's reading. Discharge Plan Discharge Clinical Impression: Chest pain, musculoskeletal, COVID-19 Patient Disposition: Home, Self-Care Instructions: Chest Wall Pain (ED), COVID-19 (Coronavirus Disease 2019) (ED) Additional Instructions: Drink plenty of fluids Cough drops as prescribed Pain medication as prescribed Follow-up with your PCP Social distancing as adv Prescriptions: New benzonatate 200 mg capsule 200 mg PO TID PRN (Reason: cough) Qty: 20 0RF tramadol 50 mg tablet 50 mg PO Q6H PRN (Reason: pain) Qty: 20 0RF No Action cholecalciferol (vitamin D3) 50 mcg (2,000 unit) capsule 50 mcg PO DAILY Qty: 90 1RF methotrexate sodium 2.5 mg tablet 7.5 mg PO QWEEK Qty: 36 1RF folic acid 1 mg tablet 1 mg PO DAILY Qty: 90 1RF warfarin 3 mg Tablet 6 mg PO MOWEFR@1800 Protocol: Dose Management Condition: Sunday (Week One) Dose/Route: 3 mg Instruction: 1 x 3 mg tablet Condition: Sunday Dose/Route: 6 mg Instruction: 2 x 3 mg tablets Condition: Sunday Dose/Route: 3 mg Instruction: 1 x 3 mg tablet Condition: Sunday Dose/Route: 3 mg Instruction: 1 x 3 mg tablet Condition: Dose/Route: 3 mg Instruction: 1 x 3 mg tablet Condition: Sunday Dose/Route: 6 mg Instruction: 2 x 3 mg tablets Condition: Sunday Dose/Route: 3 mg Instruction: 1 x 3 mg tablet Condition: Sunday (Week Two) Dose/Route: 3 mg Instruction: 1 x 3 mg tablet Condition: Sunday Dose/Route: 6 mg Instruction: 2 x 3 mg tablets Condition: Sunday Dose/Route: 3 mg Instruction: 1 x 3 mg tablet Condition: Sunday Dose/Route: 3 mg Instruction: 1 x 3 mg tablet Condition: Dose/Route: 3 mg Instruction: 1 x 3 mg tablet Condition: Sunday Dose/Route: 6 mg Instruction: 2 x 3 mg tablets Condition: Sunday Dose/Route: 3 mg Instruction: 1 x 3 mg tablet Protocol Text: Adjustment Start Date: Sunday05/15/23 INR Value: 1.9 INR Date: 05/15/23 Recheck Date: 05/16/23 Additional Instructions: C/O C/P WITH [place] AND PAIN ON INHALATION INSTRUCTED TO GO TO ER, MD CALLED OF PT STATUS AND FAMILY CALLED OF PT STATUS TO BRING PT TO ER OR CALL AMBULANCE - PAIN 8-9/10 PAIN SCALE calcium carbonate [Calcium 600] 600 mg calcium (1,500 mg) Tablet 600 mg PO DAILY meclizine 25 mg Tablet 25 mg PO Q6H PRN (Reason: dizziness) Qty: 10 0RF ondansetron HCl 4 mg tablet 4 mg PO Q8H PRN (Reason: nausea and vomiting) 4 Days Qty: 10 0RF albuterol sulfate [ProAir HFA] 90 mcg/actuation HFA aerosol inhaler 2 puff inhalation Q4H PRN (Reason: Asthma) enalapril maleate 20 mg tablet 20 mg PO BID temazepam 30 mg capsule 30 mg PO BEDTIME PRN (Reason: Insomnia) pantoprazole 40 mg tablet,delayed release (DR/EC) 40 mg PO DAILY@0630 metoprolol succinate 50 mg tablet extended release 24 hr 50 mg PO DAILY multivitamin Tablet 1 tab PO DAILY duloxetine 60 mg capsule,delayed release(DR/EC) 60 mg PO DAILY lorazepam 0.5 mg tablet 0.5 mg PO DAILY PRN (Reason: Anxiety) diclofenac sodium 1 % gel 4 g topical BID sennosides [Natural Senna Laxative] 8.6 mg tablet 8.6 mg PO BEDTIME Qty: 90 3RF acetaminophen [Mapap (acetaminophen)] 500 mg capsule 500 mg PO DAILY clotrimazole-betamethasone 1-0.05 % cream 1 appl topical DAILY hydrocortisone 1 % cream with perineal applicator 1 appl topical DAILY pravastatin 20 mg tablet 20 mg PO DAILY gabapentin 100 mg capsule See Rx Instructions .ROUTE .COMPLEX Qty: 120 1RF Rx Instructions: one cap twice a day and two at bedtime Prolia 60 mg/mL syringe 60 mg subcut [id number] hydrochlorothiazide 12.5 mg tablet 12.5 mg PO DAILY Interventions: ED Discharge Assessment Last Done: 05/15/23 23:23 Discharge Date/Time: 05/15/23 23:23
[2023-05-15 19:41] LABS: MANUAL DIFF FLAG NO
[2023-05-15 19:42] LABS: Basophils Percent Auto 0.8 % (0-2); Eosinophils Absolute Auto 0.3 X10*3/uL (0.0-0.4); Eosinophils Percent Auto 5.4 % (0-4); Hematocrit 37.2 % (37.0-47.0); Hemoglobin 11.3 g/dl (12.0-16.0); Lymphocytes Absolute Auto 2.1 X10*3/uL (1.2-4.9); Lymphocytes Percent Auto 42.4 % (20-40); Mean Corpuscular HGB Conc 30.4 g/dl (31.0-35.0); Mean Corpuscular Hemoglobin 24.2 pg (27.0-33.0); Mean Corpuscular Volume 79.8 fL (80.0-98.0); Mean Platelet Volume 9.3 fL (9.4-12.3); Monocytes Absolute Auto 0.5 X10*3/uL (0.1-1.2); Monocytes Percent Auto 10.3 % (2-11); Neutrophils Percent Auto 41.1 % (45-73); Platelet Count 203 X10*3/uL (160-400); Red Blood Count 4.66 X10*6/uL (4.20-5.50); Red Cell Distribution Width 16.2 % (11.0-16.0); White Blood Count 4.8 X10*3/uL (4.8-10.8)
[2023-05-15 19:55] LABS: Anion Gap 11 (12-20); Blood Urea Nitrogen 14 mg/dL (9-16); Calcium 9.1 mg/dL (8.4-10.2); Carbon Dioxide 26 mmol/L (22-29); Chloride 110 mmol/L (96-108); Creatinine Clr Calc Pharmacy 58.7; Estimated Glomerular Filt Rate > 60; Glucose Random 79 mg/dL (60-115); Potassium 4.2 mmol/L (3.3-5.1); Sodium 143 mmol/L (135-145)
[2023-05-15 20:03] LABS: Troponin-I High Sensitivity < 2.7 ng/L (<3.5-17.0)
[2023-05-15 21:07] LABS: INTERNATIONAL NORM RATIO 1.9 (0.9-1.1); Prothrombin Time 22.9 SEC (11.1-13.3)
[2023-05-15 21:41] LABS: Influenza A PCR NEGATIVE (Negative); Influenza B PCR NEGATIVE (Negative); Resp Syncy Virus RNA Qual PCR NEGATIVE (Negative); SARS COV2 PCR INHOUSE POSITIVE (Negative)
[2023-05-15 21:57] LABS: D Dimer High Sensitivity < 150 NG/ML
[2023-05-15 22:19] VITALS: BP 155/70; PULSE 83; RESP 16; TEMP 36.8; O2SAT 98
== END 2023-05-15 23:23 | disposition home or self-care (01) ==
PROVIDERS: Emergency Provider Internal Medicine; PCP Internal Medicine
DX: R07.89 Other chest pain (principal); U07.1 COVID-19; M79.10 Myalgia, unspecified site; I10 Essential (primary) hypertension; Z79.01 Long term (current) use of anticoagulants; Z79.899 Other long term (current) drug therapy
CPT/HCPCS: 0241U; 36415; 71045; 80048; 84484; 85025; 85379; 85610; 93005; 99284

== ENCOUNTER → 2023-05-15 18:41 | Outpatient (BNV) | payer OTHER, SELFPAY | PROVIDERS: Emergency Provider Internal Medicine; PCP Internal Medicine; Visit Provider Internal Medicine Cardiovascular Disease | DX: R07.9 Chest pain, unspecified (principal) | CPT/HCPCS: 93010 ==

== ENCOUNTER → 2023-05-16 12:16 | Outpatient (BNVA) | payer OTHER, SELFPAY | PROVIDERS: PCP Internal Medicine; Visit Provider Internal Medicine ==

== ENCOUNTER → 2023-05-18 12:06 | Outpatient (BNVA) | payer OTHER, SELFPAY | PROVIDERS: PCP Internal Medicine; Visit Provider Internal Medicine ==

== ENCOUNTER 2023-05-22 14:47 | Outpatient (REF) | payer OTHER, SELFPAY ==
[2023-05-22 16:35] LABS: INTERNATIONAL NORM RATIO 1.2 (0.9-1.1); Prothrombin Time 14.9 SEC (11.1-13.3)
== END 2023-05-22 14:48 | disposition home or self-care (01) ==
LOC: HO.HHCL 14:47
PROVIDERS: Visit Provider Internal Medicine
DX: Z86.711 Personal history of pulmonary embolism (principal)
CPT/HCPCS: 36415; 85610; 99212

== ENCOUNTER 2023-05-22 15:01 | Outpatient (REF) | payer OTHER, SELFPAY | END 2023-05-22 15:02 | disposition home or self-care (01) | LOC: HO.XRAY 15:01 | PROVIDERS: PCP Internal Medicine; Visit Provider Internal Medicine | DX: R07.81 Pleurodynia (principal); M54.50 Low back pain, unspecified; G89.29 Other chronic pain | CPT/HCPCS: 71111; 72070; 72110 ==

== ENCOUNTER 2023-05-22 16:13 | Outpatient (AMB) | payer OTHER, SELFPAY ==
[2023-05-22 16:17] LABS: Prothrombin Time Whole Bld POC 16.1 sec (11.1-13.5); ~PT, ~INR - Anti Coag Clinic 1.3 (0.9-1.1)
--- NOTE | 2023-05-22 16:17 | MHC.OFFVISCO ---
Intake Intake Visit Reasons: Anticoagulation Allergies Iodinated Contrast Media [CONTRAST, IV] Allergy (Intermediate, Verified 05/22/23 16:14) SWELLING, ITCHINESS, RASH Penicillins [PENICILLINS] Allergy (Intermediate, Verified 05/22/23 16:14) ITCHINESS, RASH, SWELLING latex Allergy (Verified 05/22/23 16:14) Hives Sulfa (Sulfonamide Antibiotics) Allergy (Verified 05/22/23 16:14) Unknown zoledronic acid [From Reclast] Adverse Reaction (Verified 05/22/23 16:14) Joint Pain Medication List - Last Reconciled 05/22/23 by Keturah Gonzales RN acetaminophen (Mapap (acetaminophen)) 500 mg PO DAILY albuterol sulfate 90 mcg/actuation (ProAir HFA) 2 puffs inhalation Q4H PRN benzonatate 200 mg PO TID PRN calcium carbonate (Calcium) 600 mg PO DAILY cholecalciferol (vitamin D3) 50 mcg PO DAILY clotrimazole-betamethasone 1-0.05 % 1 appl topical DAILY denosumab (Prolia) 60 mg subcut [id number] diclofenac sodium 1% 4 grams topical BID duloxetine 60 mg PO DAILY enalapril maleate 20 mg PO BID folic acid 1 mg PO DAILY gabapentin one cap twice a day and two at bedtime hydrochlorothiazide 12.5 mg PO DAILY hydrocortisone 1% 1 appl topical DAILY lorazepam 0.5 mg PO DAILY PRN meclizine 25 mg PO Q6H PRN methotrexate sodium 7.5 mg (3 x 2.5 mg) PO QWEEK metoprolol succinate ER 50 mg PO DAILY multivitamin 1 tab PO DAILY nirmatrelvir-ritonavir 300 mg (150 mg x 2)-100 mg (Paxlovid) ea PO ondansetron HCl 4 mg PO Q8H PRN 4 days pantoprazole 40 mg PO DAILY@0630 pravastatin 20 mg PO DAILY sennosides (Natural Senna Laxative) 8.6 mg PO BEDTIME temazepam 30 mg PO BEDTIME PRN tramadol 50 mg PO Q6H PRN warfarin 6 mg See Protocol PO MOWEFR@1800 Nursing Note INR 1.3- out of therapeutic range of 2-3 Medications and supplements reviewed Patient status: pt s/p covid with paxlovid Medications or supplements: no changes, paxlovid finished today Diet: same Denies any signs and symptoms of bleeding or clotting or unusual bruising Bleeding, bruising, clotting discussed - aware at risk for clotting Nutritional guidance given: no greens for 2 days, eat reds to raise Dose: 6mg today, tomm and thur F/U INR Date : sunday05/25/23??- with home meter Patient and nicky verbalizing understanding of instructions given. pt had labs at [facility], xray of lumbar spine at [facility] [place], and awaiting ct scan of lungs pt nicky given instructions to change time/date on home meter if nec pt pcp called with low inr, dosing and f/u appt- spoke to paty at 1625 Anti-Coag Initial Assessment Social Hx Patient Tobacco Use Status: Never used Tobacco alcohol intake: never Alcohol intake frequency: does not drink Coding Level of Care Code Est Patient Level 2 Diagnoses Current use of anticoagulant therapy Z79.01 Assessment & Plan Assessment & Plan (1) Current use of anticoagulant therapy: Code(s): Z79.01 - FPC (current) use of anticoagulants Category: Medical
== END 2023-05-22 16:26 | disposition home or self-care (01) ==
LOC: HO.ACS 16:13
PROVIDERS: PCP Internal Medicine; Visit Provider Internal Medicine
DX: Z79.01 Long term (current) use of anticoagulants (principal)

== ENCOUNTER → 2023-05-25 13:38 | Outpatient (BNVA) | payer OTHER, SELFPAY | PROVIDERS: PCP Internal Medicine; Visit Provider Internal Medicine ==

== ENCOUNTER → 2023-05-30 10:25 | Outpatient (BNVA) | payer OTHER, SELFPAY | PROVIDERS: PCP Internal Medicine; Visit Provider Internal Medicine ==

== ENCOUNTER → 2023-06-06 13:38 | Outpatient (BNVA) | payer OTHER, SELFPAY | PROVIDERS: PCP Internal Medicine; Visit Provider Internal Medicine | DX: I26.99 Other pulmonary embolism without acute cor pulmonale (principal); Z79.01 Long term (current) use of anticoagulants; Z51.81 Encounter for therapeutic drug level monitoring | CPT/HCPCS: 85610 ==

== ENCOUNTER 2023-06-13 12:04 | Outpatient (REF) | payer OTHER, SELFPAY ==
[2023-06-13 12:47] LABS: MANUAL DIFF FLAG NO
[2023-06-13 13:00] LABS: Basophils Absolute Auto 0.1 X10*3/uL (0.0-0.2); Basophils Percent Auto 1.1 % (0-2); Eosinophils Absolute Auto 0.3 X10*3/uL (0.0-0.4); Eosinophils Percent Auto 5.9 % (0-4); Hematocrit 38.3 % (37.0-47.0); Hemoglobin 11.6 g/dl (12.0-16.0); Imm Gran Abs Auto 0.01 X10*3/uL (0.00-0.03); Imm Gran Pct Auto 0.2 % (0.0-0.4); Lymphocytes Absolute Auto 1.9 X10*3/uL (1.2-4.9); Lymphocytes Percent Auto 40.4 % (20-40); Mean Corpuscular HGB Conc 30.3 g/dl (31.0-35.0); Mean Corpuscular Hemoglobin 24.6 pg (27.0-33.0); Mean Corpuscular Volume 81.1 fL (80.0-98.0); Mean Platelet Volume 9.5 fL (9.4-12.3); Monocytes Absolute Auto 0.4 X10*3/uL (0.1-1.2); Monocytes Percent Auto 9.3 % (2-11); Neutrophils Percent Auto 43.1 % (45-73); Platelet Count 347 X10*3/uL (160-400); Red Blood Count 4.72 X10*6/uL (4.20-5.50); Red Cell Distribution Width 16.3 % (11.0-16.0); White Blood Count 4.6 X10*3/uL (4.8-10.8)
[2023-06-13 13:41] LABS: Erythrocyte Sedimentation Rate 38 MM/HR (0-20)
[2023-06-13 14:20] LABS: Alanine Aminotransferase 13 U/L (0-31); Aspartate Amino Transferase 24 U/L (5-31); C Reactive Protein 0.61 mg/dL (< or = 0.50); Estimated Glomerular Filt Rate > 60
== END 2023-06-13 12:05 | disposition home or self-care (01) ==
LOC: HO.LAB 12:04
PROVIDERS: Absent Provider Internal Medicine Rheumatology; PCP Internal Medicine; Visit Provider Internal Medicine
DX: M05.9 Rheumatoid arthritis with rheumatoid factor, unspecified (principal); Z79.899 Other long term (current) drug therapy
CPT/HCPCS: 36415; 82565; 84450; 84460; 85025; 85652; 86140

== ENCOUNTER 2023-06-19 14:03 | Outpatient (AMB) | payer OTHER, SELFPAY ==
--- NOTE | 2023-06-19 14:04 | MHC.OFFVIS ---
Intake Intake Visit Reasons: osteoporosis follow up /prolia inj Intake Note: Patient last seen 04/16/[address] Ghotra, presents today for follow up and test results. Due for Prolia today. Would like to discuss other tx options. Believes MTX causing itching and redness on her legs. 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: Yes 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 Name: daughter in law Accompanied by: daughter in law Allergies Iodinated Contrast Media [CONTRAST, IV] Allergy (Intermediate, Verified 06/19/23 14:13) SWELLING, ITCHINESS, RASH Penicillins [PENICILLINS] Allergy (Intermediate, Verified 06/19/23 14:13) ITCHINESS, RASH, SWELLING latex Allergy (Verified 06/19/23 14:13) Hives Sulfa (Sulfonamide Antibiotics) Allergy (Verified 06/19/23 14:13) Unknown zoledronic acid [From Reclast] Adverse Reaction (Verified 06/19/23 14:13) Joint Pain HPI HPI Comments History of Present Illness Details Miss Perry 78 yoF returns with her daughter for follow-up of her rheumatoid arthritis, osteoporosis and osteoarthritis. The daughter translates for us. She was restarted on methotrexate at 7.5 mg weekly with 1 mg daily folic acid. Her main concern today is that the restart of MTX may have cause rash and itchy to her skin especially to lower legs. She describes that the itching and burning is worse at night. She denies other side effects fro the medication. She endorses that since starting the MTX, the hand swelling and foot pain has resolved. She was also on prednisone but that was stopped. She receives therapeutic injections to the right shoulder and lumbar She continues to reports widespread pain in most bones and muscles suggesting fribromyalgia. She is having a fair amount of lower back, upper back and some costal pain bilaterally. This is more with movements of the torso. There is also pain in the knees, buttocks and down the legs. She is also on duloxetine 60 mg daily, acetaminophen 500 q.i.d., and recently gabapentin was added by pain management. Gabapentin dose currently is 100 mg t.i.d.. It is not seemingly causing any daytime or nighttime sedation. She has discomfort at night that keeps her from sleeping. Most of this is in the lower back and upper back regions. She did have an MRI done of the spine. There are multiple compression fracture seen but none that looked acute. [facility] Medical History (Updated 06/19/23 @ 15:46 by [facility] Dry skin dermatitis Leg edema Surgical History History of cholecystectomy History of appendectomy History of total abdominal hysterectomy and bilateral salpingo-oophorectomy History of bariatric surgery History of colonoscopy Family History Father Asthma Mother Rheumatoid arthritis Cardiovascular disease Social History Household Members: Family Housing: House Are you a primary child adolescent care to a significant other at home: No Do you presently have visiting nurse or other home services: Yes (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 HEART: Regulrar rhythm, S1-S2 heard, no murmurs, rubs or gallops. LUNG: Clear to percussion and auscultation EXTREMITIES: No edema, no calf tenderness, normal peripheral pulses. NEURO: Oriented and alert x3. No focal weakness. Reflexes symmetric. Gait normal. SKIN: Dry, chapped skin with areas of small fissures to lower legs. Some hyperpigmentation over the dorsum of the foot and the malleoli bilaterally. This looks like old venous stasis disease. There are no inflammatory or neoplastic lesions. JOINT EXAM: Cervical Spine:.? Mild pains at the extremes of normal range of motion. Mild cervical muscle tenderness. Thoracic Spine:.? No scoliosis.? No tenderness on palpation. Lumbar Spine:.? Alignment normal.? Moderate pain with flexion beyond 45 degrees or with attempts at hyperextension. She has much pain and difficulty lying on the table. There is [id number]-wa-[id number] tenderness throughout the whole the spine but the pain is more prominent in the lumbar region. Chest Wall:.? Mild to moderate tenderness along the right costal margin; milder discomfort with pressure on the left costal margin. No redness, bruising or swelling seen. Hands:.? Right: Pain-free range of motion. The mild swelling in the 1st 3 MCP joints seen on last visit is resolved. These are not tender. There is no more slight tenderness at the 2nd through 4th PIP joints which have some slight bony enlargement. There is no soft tissue swelling, redness or warmth. There is no flexor tendon triggering, thenar atrophy or sensory loss. Left: Normal pain-free range of motion without the previous swelling in the 1st 2 MCP joints. These are no more tender. There is also slight bony enlargement however in all the other small joints in the hand. There are no other joints however that have tenderness There is no redness, warmth, thenar atrophy, flexor tendon triggering, or sensory loss. Wrists: Slight pain with flexion extension at 80 degrees with some mild tenderness but no swelling, increased warmth or erythema. Elbows:. Normal pain-free range of motion with mild lateral epicondylar tenderness. Over the joint spaces there is no tenderness, swelling, increased warmth or erythema. Shoulders:.?? Right: Moderate pain with abduction 135 degrees or with attempts at internal and external rotation greater than 20 degrees. Mild anterior tenderness with questionable abductor weakness but no adenopathy or swelling. Left: Mild pain with abduction 150 degrees or with attempts at internal or external rotation greater than 20 degrees. There is mild anterior tenderness without abductor weakness, swelling or adenopathy. Hips:.? Range of motion is intact but causes moderate lumbar pain with extremes of normal internal or external rotation. No groin pain with motion. Hip bursa:.? Mild trochanteric tenderness. Knees:.??Right: Slight pain with extremes of flexion or extension with some mild medial compartment tenderness. There is mild patellofemoral crepitus but no redness or effusion. Left: Slight pain with the extremes of normal flexion or extension. Pain is worse with weight-bearing. There is mild to moderate medial tenderness without redness or effusion. There is mild patellofemoral crepitus with no popliteal swelling or tenderness. Ankles: There is mild pain with inversion, eversion, or AP motion. There is mild soft tissue swelling on the medial and lateral aspects with ekur-zf-[id number] tenderness. No redness or warmth. Feet:.? Normal pain-free range of motion with mild 1st MTP bony enlargement with slight tenderness in those joints. Elsewhere there is no tenderness, swelling, increased warmth or erythema. Tender points:? Mild tenderness to digital palpation at the occiput, trapezius, second rib, lateral epicondyle, knees, greater trochanter and gluteal area bilaterally. Results Reviewed Results Reviewed: Laboratory Tests 07/13/22 07/13/22 06/01/23 12:36 12:36 11:40 WBC RBC Hgb Hct MCV ESR BUN Creatinine Estimated GFR Calcium 9.7 D AST ALT C-Reactive Protein 25-OH Vitamin D Total 33 TSH 1.75 06/01/23 06/13/23 06/13/23 11:40 12:46 12:46 WBC 4.6 L RBC 4.72 Hgb 11.6 L Hct 38.3 MCV 81.1 ESR 38 H BUN 14 Creatinine 0.88 Estimated GFR > 60 Calcium AST ALT 13 C-Reactive Protein 0.61 H 25-OH Vitamin D Total TSH 06/13/23 12:46 WBC RBC Hgb Hct MCV ESR BUN Creatinine Estimated GFR Calcium AST 24 ALT C-Reactive Protein 25-OH Vitamin D Total TSH Assessment & Plan Assessment & Plan (1) Fibromyalgia: Code(s): M79.7 - Fibromyalgia (2) Osteoarthritis of lumbosacral spine: Code(s): M47.817 - Spondylosis without myelopathy or radiculopathy, lumbosacral region (3) Osteoporosis: Comment: MRI lumbar spine 06/2021: Moderate benign appearing compression fracture along superior endplate T11 and T12 DEXA 01/14/2022: Osteoporosis T-score -3.5. Started on alendronate, patient did not receive medication. Prolia avoided due to latex allergy. Reclast denied by insurance company. Alendronate reordered May 2022 pharmacy did not fill due to listed allergy of bisphosphonates. Reviewed with patient, she remembered that she took Reclast in the past and had head to toe joint pain after infusion requiring hospitalization. Patient agrees to retry alendronate June 2022 - not tolerated. 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 I do not see much signs of active inflammatory disease in the small joints. Additionally the CRP has improved. There was concern when we restarted the methotrexate about possible leukopenia but that does not seem to be the case as her white count has improved. However, given she is experiencing the increased itchy skin since restarting MTX, we will hold the 7.5 mg methotrexate weekly for now. I will give a course of Prednisone in the mean time to avoid total relapse of RA. Once the itch and rash is resolved, we will consider to start her on Leflunomide. I also recommend to patient that the skin drying and itch may be due to heat at night, she disagrees so for now we will stop the MTX and reassess. Patient will also stop Folic Acid for now. #Osteoporosis: She is due for the next dose of Prolia today so it will be given. #Lumbar DDD and Fibromylagia: The patient has many other pains consistent with lumbar osteoarthritis and fibromyalgia. She takes antidepressant medication and her gabapentin was increased from 100 b.i.d. and 200 q.h.s. at last visit but has not seem to improve her state. She also has seen Pain Management and they are considering corticosteroid injections in the back. #Custodial Use: We will continue to monitor her labs and possible side effects. I will see her in 5 weeks. I spent 30 minutes reviewing the chart, evaluating the patient and documenting. Medications: New prednisone 3 tablets per day until next visit. 90 tabs 0RF M05.9 - Rheumatoid arthritis with rheumatoid factor, unspecified On Hold methotrexate sodium Hold Comment: Doctor's Order 7.5 mg (3 x 2.5 mg) PO QWEEK 36 tabs 1RF M05.9 - Rheumatoid arthritis with rheumatoid factor, unspecified Coding Level of Care Code Est Pt Level 4 (26279) Diagnoses Fibromyalgia M79.7 Osteoarthritis of lumbosacral spine M47.817 Age-related osteoporosis with current pathological fracture, sequela M80.00XS Presence of current pathological fracture: with current pathological fracture Osteoporosis type: age-related Encounter type: sequela assistant terminal manager methotrexate user Z79.899 Seropositive rheumatoid arthritis M05.9 Dry skin dermatitis L85.3
== END 2023-06-19 14:48 | disposition home or self-care (01) ==
PROVIDERS: PCP Internal Medicine; Visit Provider Nurse Practitioner Family
DX: M79.7 Fibromyalgia (principal); M47.817 Spondylosis without myelopathy or radiculopathy, lumbosacral region; M80.00XS Age-related osteoporosis with current pathological fracture, unspecified site, sequela; Z79.899 Other long term (current) drug therapy; M05.79 Rheumatoid arthritis with rheumatoid factor of multiple sites without organ or systems involvement; L85.3 Xerosis cutis; M81.0 Age-related osteoporosis without current pathological fracture
CPT/HCPCS: 99214

== ENCOUNTER → 2023-06-19 14:03 | Outpatient (BNVA) | payer OTHER, SELFPAY | PROVIDERS: PCP Internal Medicine; Visit Provider Nurse Practitioner Family | DX: M79.7 Fibromyalgia (principal); M47.817 Spondylosis without myelopathy or radiculopathy, lumbosacral region; M80.00XS Age-related osteoporosis with current pathological fracture, unspecified site, sequela; M05.9 Rheumatoid arthritis with rheumatoid factor, unspecified; L85.3 Xerosis cutis; Z79.899 Other long term (current) drug therapy | CPT/HCPCS: 96372; 99212; J0897 ==

== ENCOUNTER → 2023-06-20 11:49 | Outpatient (BNVA) | payer OTHER, SELFPAY | PROVIDERS: PCP Internal Medicine; Visit Provider Internal Medicine ==

== ENCOUNTER → 2023-06-27 15:33 | Outpatient (BNVA) | payer OTHER, SELFPAY | PROVIDERS: PCP Internal Medicine; Visit Provider Internal Medicine ==

== ENCOUNTER 2023-07-04 13:00 | Outpatient (REF) | payer OTHER, SELFPAY ==
--- NOTE | ~2023-07-04 | CT_ITS ---
EXAMINATION: CT CHEST WITHOUT CONTRAST CLINICAL INFORMATION: Follow-up rounded density overlying the right lung on chest x-ray COMPARISON: Previous chest x-rays and right rib x-rays April 2023 TECHNIQUE: Multidetector volumetric CT imaging of the chest was done. Axial MIP volume rendering provided. Sagittal and coronal reformatted images were obtained. This CT examination was performed using dose optimization techniques as appropriate, variously including the following: *Automated exposure control *Adjustment of mA and/or kV according to patient size (this includes techniques or standardized protocols for targeted exams where dose is matched to indication/reason for exam; i.e. 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 3 mm calcified left upper lobe nodule axial image 211 series 5. Subsegmental atelectasis or scarring in the inferior segment of the lingula. No endobronchial or endotracheal lesion. MEDIASTINUM: Slightly enlarged heart. No pericardial effusion. Atherosclerotic disease of the thoracic aorta. This is normal in caliber. No enlarged hilar or mediastinal lymph nodes. CORONARY ARTERY CALCIFICATION: Moderate PLEURA: There is no pleural effusion. No pleural mass or thickening. AXILLA: No lymphadenopathy. UPPER ABDOMEN: Postsurgical changes to the stomach. Severe atherosclerotic disease. The gallbladder has been removed. OSSEOUS STRUCTURES: Schmorl's nodes versus mild old depression fractures of the T11 and T12 vertebral bodies. Degenerative changes of the spine. CT/CT chest wo IV con IMPRESSION: No worrisome pulmonary findings. Small pulmonary nodules. According to the UPDATED 2017 Fleischner Society recommendations, the advised follow-up imaging for less than 6 mm solid nodule: Low risk, no chest CT follow-up and high risk, optional chest CT follow-up in one year. Enlarged heart and severe atherosclerotic disease. Fleischner guidelines were followed.
== END 2023-07-04 13:01 | disposition home or self-care (01) ==
LOC: HO.CT 13:00
PROVIDERS: PCP Internal Medicine; Visit Provider Internal Medicine
DX: R07.81 Pleurodynia (principal); J98.4 Other disorders of lung
CPT/HCPCS: 71250

== ENCOUNTER 2023-07-11 10:43 | Outpatient (AMB) | payer OTHER, SELFPAY ==
--- NOTE | 2023-07-11 10:58 | MHC.OFFVISCO ---
Intake Intake Visit Reasons: Anticoagulation Allergies Iodinated Contrast Media [CONTRAST, IV] Allergy (Intermediate, Verified 07/04/23 14:46) SWELLING, ITCHINESS, RASH Penicillins [PENICILLINS] Allergy (Intermediate, Verified 07/04/23 14:46) ITCHINESS, RASH, SWELLING latex Allergy (Verified 07/04/23 14:46) Hives Sulfa (Sulfonamide Antibiotics) Allergy (Verified 07/04/23 14:46) Unknown zoledronic acid [From Reclast] Adverse Reaction (Verified 07/04/23 14:46) Joint Pain Nursing Note INR received from [facility] INR is: 1.4 INR out of range t Telephone call to patient for further assessment Medication or supplement: no changes Diet: no changes Called and spoke to dgt in law Guerrero who states pt missed a 6 mg dose on Sun Dose: increased tomorrow to 6mg (from 3mg) and to continue usual dose all other days Signs and symptoms of bleeding and bruising discussed Patient will go to ER with any signs and symptoms of bleeding, or clotting or unusual bruising? Retest: 1 week Patient's dgt in [place] verbalizes understanding of instructions given and retest date with read back PCP Dr Motley's office notified and msg left with Nohemi of pt's result and plan Anti-Coag Initial Assessment Social Hx Patient Tobacco Use Status: Never used Tobacco alcohol intake: never Alcohol intake frequency: does not drink Coding Level of Care Code Est Patient Level 1 Diagnoses Current use of anticoagulant therapy Z79.01 Results AMB INR Fingerstick AMB INR Fingerstick 1.4 Last Edit by Diana Bey RN on 07/11/23 10:55 ACELIS Assessment & Plan Assessment & Plan (1) Current use of anticoagulant therapy: Code(s): Z79.01 - prison (current) use of anticoagulants Category: Medical
== END 2023-07-11 11:18 | disposition home or self-care (01) ==
LOC: HO.ACS 10:43
PROVIDERS: PCP Internal Medicine; Visit Provider Internal Medicine
DX: Z79.01 Long term (current) use of anticoagulants (principal)

== ENCOUNTER → 2023-07-11 10:43 | Outpatient (BNVA) | payer OTHER, SELFPAY | PROVIDERS: PCP Internal Medicine; Visit Provider Internal Medicine | DX: I26.99 Other pulmonary embolism without acute cor pulmonale (principal); Z79.01 Long term (current) use of anticoagulants; Z51.81 Encounter for therapeutic drug level monitoring | CPT/HCPCS: 99211 ==

== ENCOUNTER → 2023-07-18 13:55 | Outpatient (BNVA) | payer OTHER, SELFPAY | PROVIDERS: PCP Internal Medicine; Visit Provider Internal Medicine ==

== ENCOUNTER 2023-07-20 09:33 | Outpatient (AMB) | payer OTHER, SELFPAY ==
--- NOTE | 2023-07-20 09:34 | A.OFFVIS_ITS ---
Intake Vital Signs 07/20/23 09:46 Height 5 ft 3 in Weight 175 lb 4.28 oz BMI 31.0 BP 126/54 L Blood Pressure Location Rt brachial Position Sitting Pulse 114 H Pulse Source Pulse Oximeter Temp 97.6 F Temp Source Skin Pulse Oximetry (%) 93 Oxygen Delivery Method Room Air Intake Visit Reasons: RA/Skin dryness and itch Intake Note: Patient last seen 06/19/23 by Milton, presents today for RA and skin dryness follow up. 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 Feeder Name: daughter in law Accompanied by: daughter in law Allergies Iodinated Contrast Media [CONTRAST, IV] Allergy (Intermediate, Verified 07/20/23 09:34) SWELLING, ITCHINESS, RASH Penicillins [PENICILLINS] Allergy (Intermediate, Verified 07/20/23 09:34) ITCHINESS, RASH, SWELLING latex Allergy (Verified 07/20/23 09:34) Hives Sulfa (Sulfonamide Antibiotics) Allergy (Verified 07/20/23 09:34) Unknown zoledronic acid [From Reclast] Adverse Reaction (Verified 07/20/23 09:34) Joint Pain HPI HPI Comments History of Present Illness Details Miss Vicky Abrams yoLizzy returns with her daughter for follow-up of her rheumatoid arthritis, osteoporosis and osteoarthritis. She is doing very well today. the itch and dryness has stopped and the prednisone was very helpful to relieve hand swelling and pain. She continues to be off the MTX which was stopped at last visit. She has back pain which she manages with tylenol and also tramadol when it gets really bad. She offers no further concerns today. Prior Visit: 06/19/2022 Miss Vicky Araujo returns with her daughter for follow-up of her rheumatoid arthritis, osteoporosis and osteoarthritis. The daughter translates for us. She was restarted on methotrexate at 7.5 mg weekly with 1 mg daily folic acid. Her main concern today is that the restart of MTX may have cause rash and itchy to her skin especially to lower legs. She describes that the itching and burning is worse at night. She denies other side effects fro the medication. She endorses that since starting the MTX, the hand swelling and foot pain has resolved. She was also on prednisone but that was stopped. She receives therapeutic injections to the right shoulder and lumbar She continues to reports widespread pain in most bones and muscles suggesting fribromyalgia. She is having a fair amount of lower back, upper back and some costal pain bilaterally. This is more with movements of the torso. There is also pain in the knees, buttocks and down the legs. She is also on duloxetine 60 mg daily, acetaminophen 500 q.i.d., and recently gabapentin was added by pain management. Gabapentin dose currently is 100 mg t.i.d.. It is not seemingly causing any daytime or nighttime sedation. She has discomfort at night that keeps her from sleeping. Most of this is in the lower back and upper back regions. She did have an MRI done of the spine. There are multiple compression fracture seen but none that looked acute. [facility] Medical History (Updated 07/20/23 @ 10:06 by JABARI Wolf) Long-term use of immunosuppressant medication Dry skin dermatitis Leg edema Surgical History History of cholecystectomy History of appendectomy History of total abdominal hysterectomy and bilateral salpingo-oophorectomy History of bariatric surgery History of colonoscopy Family History Father Asthma Mother Rheumatoid arthritis Cardiovascular disease Social History Household Members: Family Housing: House Are you a primary day care teacher to a significant other at home: No Do you presently have visiting nurse or other home services: Yes (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) Alcohol intake: never Patient Tobacco Use Status: Never used Tobacco Advance Directives Date on File: 03/17/20 service: No Current occupational status: disabled Review of Systems Const All systems reviewed & are unremarkable except as noted in HPI and below Physical Exam Vital Signs: Last Vital Signs Temp 97.6 F 07/20/23 09:46 Pulse 114 H 07/20/23 09:46 BP 126/54 L 07/20/23 09:46 Pulse Ox 93 07/20/23 09:46 Oxygen Delivery Method Room Air 07/20/23 09:46 BMI result Body Mass Index 31.0 APPEARANCE: Patient in no acute distress, groomed and nourished NECK: No thyromegaly or masses, no adenopathy, trachea midline. HEART: Regular rhythm, S1-S2 heard, no murmurs, rubs or gallops. LUNG: Clear to auscultation EXTREMITIES: No edema, no calf tenderness, normal peripheral pulses. NEURO: Oriented and alert x3. No focal weakness. Reflexes symmetric. Gait normal. SKIN: Dry, chapped skin with areas of small fissures to lower legs has resolved. There are no inflammatory or neoplastic lesions. JOINT EXAM: Cervical Spine:.? Mild pains at the extremes of normal range of motion. Mild cervical muscle tenderness. Thoracic Spine:.? No scoliosis.? No tenderness on palpation. Lumbar Spine:.? Alignment normal.? Moderate pain with flexion beyond 45 degrees or with attempts at hyperextension. There is a reduction in the [id number]-ek-[id number] tenderness that was previously throughout the whole the spine and is more prominent in the lumbar region. She still feels tenderness but mild. Chest Wall:.? Mild to moderate tenderness along the right costal margin; milder discomfort with pressure on the left costal margin. No redness, bruising or swelling seen. Hands:.? Right: Pain-free range of motion. The mild swelling in the 1st 3 MCP joints seen on last visit is resolved. These are not tender. There is no more slight tenderness at the 2nd through 4th PIP joints which have some slight bony enlargement. There is no soft tissue swelling, redness or warmth. There is no flexor tendon triggering, thenar atrophy or sensory loss. Left: Normal pain- free range of motion without the previous swelling in the 1st 2 MCP joints. These are no more tender. There is also slight bony enlargement however in all the other small joints in the hand. There are no other joints however that have tenderness There is no redness, warmth, thenar atrophy, flexor tendon triggering, or sensory loss. Wrists: Slight pain with flexion extension at 80 degrees with some mild tenderness but no swelling, increased warmth or erythema. Elbows:. Normal pain-free range of motion with mild lateral epicondylar tenderness. Over the joint spaces there is no tenderness, swelling, increased warmth or erythema. Shoulders:.?? Right: Moderate pain with abduction 135 degrees or with attempts at internal and external rotation greater than 20 degrees. Mild anterior tenderness with questionable abductor weakness but no adenopathy or swelling. Left: Mild pain with abduction 150 degrees or with attempts at internal or external rotation greater than 20 degrees. There is mild anterior tenderness without abductor weakness, swelling or adenopathy. Hips:.? Range of motion is intact but causes moderate lumbar pain with extremes of normal internal or external rotation. No groin pain with motion. Hip bursa:.? Mild trochanteric tenderness. Knees:.??Right: Slight pain with extremes of flexion or extension with some mild medial compartment tenderness. There is mild patellofemoral crepitus but no redness or effusion. Left: Slight pain with the extremes of normal flexion or extension. Pain is worse with weight-bearing. There is mild medial tenderness without redness or effusion. There is mild patellofemoral crepitus with no popliteal swelling or tenderness. Ankles: There is no pain with inversion, eversion, or AP motion. There is no more mild soft tissue swelling on the medial and lateral aspects with [id number] tenderness. No redness or warmth. Feet:.? Normal pain-free range of motion with mild 1st MTP bony enlargement with slight tenderness in those joints. Elsewhere there is no tenderness, swelling, increased warmth or erythema. Tender points:? Mild tenderness to digital palpation at the occiput, trapezius, second rib, lateral epicondyle, knees, greater trochanter and gluteal area bilaterally. Results Reviewed Results Reviewed: Laboratory Tests 07/13/22 07/13/22 06/01/23 12:36 12:36 11:40 WBC RBC Hgb Hct MCV ESR BUN Creatinine Estimated GFR Calcium 9.7 D AST ALT C-Reactive Protein 25-OH Vitamin D Total 33 TSH 1.75 06/01/23 06/13/23 06/13/23 11:40 12:46 12:46 WBC 4.6 L RBC 4.72 Hgb 11.6 L Hct 38.3 MCV 81.1 ESR 38 H BUN 14 Creatinine 0.88 Estimated GFR > 60 Calcium AST ALT 13 C-Reactive Protein 0.61 H 25-OH Vitamin D Total TSH 06/13/23 12:46 WBC RBC Hgb Hct MCV ESR BUN Creatinine Estimated GFR Calcium AST 24 ALT C-Reactive Protein 25-OH Vitamin D Total TSH 05/22/2023 FINDINGS: There is diffuse osteopenia and stable compression deformities of T12 and T11 vertebral bodies. There is findings seen on CT abdomen from January 2022. XR/XR thoracic spine 2V IMPRESSION: Diffuse osteopenia and stable compression deformities of T12 and T11 vertebral bodies. FINDINGS: Lungs are clear. No consolidation, pneumothorax, or pleural effusion. The cardiomediastinal silhouette and pulmonary vasculature are normal. Osseous structures are unremarkable. Ribs are intact. No fractures are identified. XR/XR ribs BI min 4V w CXR1V IMPRESSION: Unremarkable examination. FINDINGS: Compared to the previous study there is no interval change in mild superior endplate fracture of L3 vertebral body and facets arthropathy in the lower lumbar spine. There is IVC filter present projecting over the L4-L5 and another filter seen over the left sacroiliac joint. There is mild diffuse osteopenia. XR/XR lumbar spine 4V min IMPRESSION: No interval change in mild superior endplate fracture of L3 vertebral body and facets arthropathy. Assessment & Plan Assessment & Plan (1) Osteoarthritis of lumbosacral spine: Code(s): M47.817 - Spondylosis without myelopathy or radiculopathy, lumbosacral region (2) Seropositive rheumatoid arthritis: Code(s): M05.9 - Rheumatoid arthritis with rheumatoid factor, unspecified (3) Dry skin dermatitis: Code(s): L85.3 - Xerosis cutis (4) Long-term use of immunosuppressant medication: Code(s): Z79.60 - custodial (current) use of unspecified immunomodulators and immunosuppressants Plan #SeroPos RA/Dry Skin Dermatitis: At last visit we had stopped the methotrexate and started her on a course of prednisone taper because she was experiencing itchy skin since restarting methotrexate. Today the patient reports that her hand swelling has resolved there has no more pain and tenderness in her finger joints. At this point I do believe the patient was experiencing symptoms related to rheumatoid arthritis. I will continue a prednisone taper as a bridge and start her on leflunomide with the hope that she will not have this the same side effects as on methotrexate. I continue to encourage patient to be more active, to gain muscle strength. #Fpc Use: We will continue to monitor her CBC for cytopenia, CMP for adequate liver and kidney function and possible side effects. I will see her in 12 weeks. I spent 20 minutes reviewing the chart, evaluating the patient and documenting. 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 Panel 07/20/23 M05.9 - Rheumatoid arthritis with rheumatoid factor, unspecified, Z79.60 - custodial (current) use of unspecified immunomodulators and immunosuppressants Erythrocyte Sedimentation Rate 07/20/23 M05.9 - Rheumatoid arthritis with rheumatoid factor, unspecified, Z79.60 - custodial (current) use of unspecified immunomodulators and immunosuppressants Medications: New leflunomide Take 1 pill per day for 2 weeks, then 2 tablets daily 90 tabs 1RF M05.9 - Rheumatoid arthritis with rheumatoid factor, unspecified Changed From prednisone 3 tablets per day until next visit. 90 tabs 0RF M05.9 - Rheumatoid arthritis with rheumatoid factor, unspecified To prednisone 3 tablets per day x 1 month then 2 tablets per day x one week and 1 tablet per day x 1 week and stop 90 tabs 1RF M05.9 - Rheumatoid arthritis with rheumatoid factor, unspecified Discontinued methotrexate sodium Discontinued Reason: Doctor's Order 7.5 mg (3 x 2.5 mg) PO QWEEK 36 tabs 1RF M05.9 - Rheumatoid arthritis with rheumatoid factor, unspecified Coding Level of Care Code Est Pt Level 3 (21249) Diagnoses Osteoarthritis of lumbosacral spine M47.817 Seropositive rheumatoid arthritis M05.9 Dry skin dermatitis L85.3 Long-term use of immunosuppressant medication Z79.60
[2023-07-20 09:46] VITALS: BP 126/54; PULSE 114; TEMP 36.4; O2SAT 93; BMI 31.0
== END 2023-07-20 10:15 | disposition home or self-care (01) ==
PROVIDERS: PCP Internal Medicine; Visit Provider Nurse Practitioner Family
DX: M05.79 Rheumatoid arthritis with rheumatoid factor of multiple sites without organ or systems involvement (principal); M47.817 Spondylosis without myelopathy or radiculopathy, lumbosacral region; L85.3 Xerosis cutis; Z79.60 Long term (current) use of unspecified immunomodulators and immunosuppressants
CPT/HCPCS: 99214

== ENCOUNTER → 2023-07-20 09:33 | Outpatient (BNVA) | payer OTHER, SELFPAY | PROVIDERS: PCP Internal Medicine; Visit Provider Nurse Practitioner Family | DX: M47.817 Spondylosis without myelopathy or radiculopathy, lumbosacral region (principal); M05.9 Rheumatoid arthritis with rheumatoid factor, unspecified; L85.3 Xerosis cutis; Z79.60 Long term (current) use of unspecified immunomodulators and immunosuppressants | CPT/HCPCS: 99212 ==

== ENCOUNTER → 2023-07-27 11:05 | Outpatient (BNVA) | payer OTHER, SELFPAY | PROVIDERS: PCP Internal Medicine; Visit Provider Internal Medicine ==

== ENCOUNTER → 2023-07-31 08:48 | Outpatient (BNVA) | payer OTHER, SELFPAY | PROVIDERS: PCP Internal Medicine; Visit Provider Internal Medicine ==

== ENCOUNTER → 2023-08-03 10:51 | Outpatient (BNVA) | payer OTHER, SELFPAY | PROVIDERS: PCP Internal Medicine; Visit Provider Internal Medicine ==

== ENCOUNTER → 2023-08-08 10:24 | Outpatient (BNVA) | payer OTHER, SELFPAY | PROVIDERS: PCP Internal Medicine; Visit Provider Internal Medicine ==

== ENCOUNTER → 2023-08-15 11:11 | Outpatient (BNVA) | payer OTHER, SELFPAY | PROVIDERS: PCP Internal Medicine; Visit Provider Internal Medicine ==

== ENCOUNTER 2023-09-03 10:20 | Outpatient (AMB) | payer OTHER, SELFPAY ==
[2023-09-03 10:56] LABS: Prothrombin Time Whole Bld POC 44.8 sec (11.1-13.5); ~PT, ~INR - Anti Coag Clinic 3.7 (0.9-1.1)
--- NOTE | 2023-09-03 11:15 | MHC.OFFVISCO ---
Intake Intake Visit Reasons: Anticoagulation Allergies Iodinated Contrast Media [CONTRAST, IV] Allergy (Intermediate, Verified 09/03/23 10:25) SWELLING, ITCHINESS, RASH Penicillins [PENICILLINS] Allergy (Intermediate, Verified 09/03/23 10:25) ITCHINESS, RASH, SWELLING latex Allergy (Verified 09/03/23 10:25) Hives Sulfa (Sulfonamide Antibiotics) Allergy (Verified 09/03/23 10:25) Unknown zoledronic acid [From Reclast] Adverse Reaction (Verified 09/03/23 10:25) Joint Pain Medication List - Last Reconciled 09/03/23 by Diana Bey, RN acetaminophen (Mapap (acetaminophen)) 500 mg PO DAILY albuterol sulfate 90 mcg/actuation (ProAir HFA) 2 puffs inhalation Q4H PRN calcium carbonate (Calcium) 600 mg PO DAILY cholecalciferol (vitamin D3) 50 mcg PO DAILY clotrimazole-betamethasone 1-0.05 % 1 appl topical DAILY denosumab (Prolia) 60 mg subcut [id number] diclofenac sodium 1% 4 grams topical BID duloxetine 60 mg PO DAILY enalapril maleate 20 mg PO BID folic acid 1 mg PO DAILY gabapentin one cap twice a day and two at bedtime hydrochlorothiazide 12.5 mg PO DAILY hydrocortisone 1% 1 appl topical DAILY leflunomide Take 1 pill per day for 2 weeks, then 2 tablets daily lorazepam 0.5 mg PO DAILY PRN meclizine 25 mg PO Q6H PRN metoprolol succinate ER 50 mg PO DAILY multivitamin 1 tab PO DAILY multivitamin with folic acid 400 mcg (Daily-Rylie (with folic acid)) tabs PO ondansetron HCl 4 mg PO Q8H PRN 4 days pantoprazole 40 mg PO DAILY@0630 pravastatin 20 mg PO DAILY prednisone 3 tablets per day x 1 month then 2 tablets per day x one week and 1 tablet per day x 1 week and stop sennosides (Natural Senna Laxative) 8.6 mg PO BEDTIME temazepam 30 mg PO BEDTIME PRN tramadol 50 mg PO Q6H PRN warfarin 6 mg See Protocol PO MOWEFR@1800 Nursing Note Pt to [facility] accompanied by dgt-in-law Yolanda. She brought in a new meter. Meter to meter check done. Pt performed test demonstrating good technique. Meters confirmed. INR: 3.7 out of therapeutic range of 2-3 Medications and supplements reviewed: pt states has had more tylenol recently d/t a rheumatoid flare up and has an appt with arthritis doctor coming up. also finishing up a tapered dose of prednisone. No changes in diet or supplements, Denies any signs and symptoms of bleeding or bruising or clotting. Bleeding, bruising, clotting discussed Nutritional guidance given to have greens today and tomorrow. Dose: usual dose is 6mg M-W-F and 3mg all other days but decreased today's dose to 3mg F/U INR: 1 week. Pt will test at home with new meter. Patient verbalizes understanding of instructions given Anti-Coag Initial Assessment Social Hx Patient Tobacco Use Status: Never used Tobacco alcohol intake: never Alcohol intake frequency: does not drink Coding Level of Care Code Est Patient Level 2 Diagnoses Current use of anticoagulant therapy Z79.01 Time Spent (min) 30 Comment meter to meter done Assessment & Plan Assessment & Plan (1) Current use of anticoagulant therapy: Code(s): Z79.01 - manager terminal (current) use of anticoagulants Category: Medical
== END 2023-09-03 11:25 | disposition home or self-care (01) ==
LOC: HO.ACS 10:20
PROVIDERS: PCP Internal Medicine; Visit Provider Internal Medicine
DX: Z79.01 Long term (current) use of anticoagulants (principal)

== ENCOUNTER → 2023-09-03 10:20 | Outpatient (BNVA) | payer OTHER, SELFPAY | PROVIDERS: PCP Internal Medicine; Visit Provider Internal Medicine | DX: I26.99 Other pulmonary embolism without acute cor pulmonale (principal); Z79.01 Long term (current) use of anticoagulants; Z51.81 Encounter for therapeutic drug level monitoring | CPT/HCPCS: 85610; 99212 ==

== ENCOUNTER 2023-09-04 15:31 | Outpatient (REF) | payer OTHER, SELFPAY ==
[2023-09-04 18:03] LABS: MANUAL DIFF FLAG NO
[2023-09-04 18:20] LABS: Basophils Percent Auto 0.9 % (0-2); Eosinophils Absolute Auto 0.1 X10*3/uL (0.0-0.4); Eosinophils Percent Auto 1.7 % (0-4); Hematocrit 38.6 % (37.0-47.0); Hemoglobin 11.7 g/dl (12.0-16.0); Imm Gran Abs Auto 0.01 X10*3/uL (0.00-0.03); Imm Gran Pct Auto 0.2 % (0.0-0.4); Lymphocytes Absolute Auto 1.9 X10*3/uL (1.2-4.9); Lymphocytes Percent Auto 40.5 % (20-40); Mean Corpuscular HGB Conc 30.3 g/dl (31.0-35.0); Mean Corpuscular Hemoglobin 25.2 pg (27.0-33.0); Mean Corpuscular Volume 83.2 fL (80.0-98.0); Monocytes Absolute Auto 0.4 X10*3/uL (0.1-1.2); Monocytes Percent Auto 8.7 % (2-11); Neutrophils Absolute Auto 2.2 x10*3/uL (2.0-8.3); Platelet Count 374 X10*3/uL (160-400); Red Blood Count 4.64 X10*6/uL (4.20-5.50); Red Cell Distribution Width 17.5 % (11.0-16.0); White Blood Count 4.6 X10*3/uL (4.8-10.8)
[2023-09-04 18:24] LABS: Anion Gap 14 (12-20); Blood Urea Nitrogen 16 mg/dL (9-16); Calcium 9.6 mg/dL (8.4-10.2); Carbon Dioxide 28 mmol/L (22-29); Chloride 106 mmol/L (96-108); Estimated Glomerular Filt Rate > 60; Glucose Random 85 mg/dL (60-115); Potassium 4.2 mmol/L (3.3-5.1); Sodium 144 mmol/L (135-145); Uric Acid 4.3 mg/dL (2.4-5.7)
== END 2023-09-04 15:32 | disposition home or self-care (01) ==
LOC: HO.HHCL 15:31
PROVIDERS: Visit Provider Internal Medicine Geriatric Medicine
DX: M25.571 Pain in right ankle and joints of right foot (principal)
CPT/HCPCS: 36415; 80048; 84550; 85025

== ENCOUNTER 2023-09-11 12:43 | Outpatient (REF) | payer OTHER, SELFPAY ==
[2023-09-11 13:34] LABS: MANUAL DIFF FLAG NO
[2023-09-11 14:00] LABS: Basophils Percent Auto 0.2 % (0-2); Eosinophils Percent Auto 0.2 % (0-4); Hematocrit 41.7 % (37.0-47.0); Hemoglobin 12.4 g/dl (12.0-16.0); Imm Gran Abs Auto 0.06 X10*3/uL (0.00-0.03); Imm Gran Pct Auto 0.7 % (0.0-0.4); Lymphocytes Percent Auto 23.8 % (20-40); Mean Corpuscular HGB Conc 29.7 g/dl (31.0-35.0); Mean Corpuscular Hemoglobin 24.6 pg (27.0-33.0); Mean Corpuscular Volume 82.6 fL (80.0-98.0); Mean Platelet Volume 10.5 fL (9.4-12.3); Monocytes Absolute Auto 0.5 X10*3/uL (0.1-1.2); Monocytes Percent Auto 5.5 % (2-11); Neutrophils Absolute Auto 5.9 x10*3/uL (2.0-8.3); Neutrophils Percent Auto 69.6 % (45-73); Platelet Count 358 X10*3/uL (160-400); Red Blood Count 5.05 X10*6/uL (4.20-5.50); Red Cell Distribution Width 17.7 % (11.0-16.0); White Blood Count 8.4 X10*3/uL (4.8-10.8)
[2023-09-11 14:44] LABS: Erythrocyte Sedimentation Rate 25 MM/HR (0-20)
[2023-09-11 16:28] LABS: Alanine Aminotransferase 17 U/L (0-31); Albumin Level 3.5 g/dL (3.5-5.0); Alkaline Phosphatase 66 U/L (39-117); Anion Gap 13 (12-20); Aspartate Amino Transferase 22 U/L (5-31); Bilirubin Total 0.2 mg/dL (0.0-1.0); Blood Urea Nitrogen 22 mg/dL (9-16); C Reactive Protein 0.24 mg/dL (< or = 0.50); Calcium 9.3 mg/dL (8.4-10.2); Carbon Dioxide 26 mmol/L (22-29); Chloride 106 mmol/L (96-108); Estimated Glomerular Filt Rate > 60; Glucose Random 89 mg/dL (60-115); Potassium 3.9 mmol/L (3.3-5.1); Sodium 141 mmol/L (135-145); Total Protein 7.1 g/dL (6.5-8.0)
== END 2023-09-11 12:44 | disposition home or self-care (01) ==
LOC: HO.10HDL 12:43
PROVIDERS: Visit Provider Nurse Practitioner Family
DX: M05.9 Rheumatoid arthritis with rheumatoid factor, unspecified (principal); Z79.60 Long term (current) use of unspecified immunomodulators and immunosuppressants
CPT/HCPCS: 36415; 80053; 85025; 85652; 86140

== ENCOUNTER → 2023-09-12 13:53 | Outpatient (BNVA) | payer OTHER, SELFPAY | PROVIDERS: PCP Internal Medicine; Visit Provider Internal Medicine ==

== ENCOUNTER 2023-09-13 10:18 | Outpatient (AMB) | payer OTHER, SELFPAY ==
--- NOTE | 2023-09-13 10:24 | A.OFFVIS_ITS ---
Vital Signs 09/13/23 10:25 Height 5 ft 3 in Weight 176 lb 5.917 oz BMI 31.2 BP 100/54 L Blood Pressure Location Rt brachial Position Sitting Pulse 80 Pulse Source Palpation Intake Visit Reasons: RA/Osteoporosis. Intake Note: Patient last seen 07/20/23, presents today for follow up and test results. Reports recent UTI and left ankle infection. Started on prednisone taper. Referred to [facility] Ortho. Reports discontinuing Leflunomide. Patient attributes recent infections to starting new med. Learning And Development Intern Required: Yes Learning And Development Intern Language: Equal Employment Opportunity Officer Name: Daughter in law-Refusal signed Information Interpreted: non-clinical & clinical Accompanied by: daughter in law Allergies Iodinated Contrast Media [CONTRAST, IV] Allergy (Intermediate, Verified 09/13/23 11:36) SWELLING, ITCHINESS, RASH Penicillins [PENICILLINS] Allergy (Intermediate, Verified 09/13/23 11:36) ITCHINESS, RASH, SWELLING latex Allergy (Verified 09/13/23 11:36) Hives Sulfa (Sulfonamide Antibiotics) Allergy (Verified 09/13/23 11:36) Unknown zoledronic acid [From Reclast] Adverse Reaction (Verified 09/13/23 11:36) Joint Pain HPI Comments Details: Miss Vicky Araujo returns with her daughter for follow-up of her rheumatoid arthritis, osteoporosis and osteoarthritis. She is not doing very well today her right ankle has been swollen and painful for about 1 month. She was treated at the [facility] with high dose Prednisone since 09/04 and it has improved but still remains significantly swollen. X-rays taken at [facility] showed swollen soft tissue, but no fractures. She was also referred for Ortho and was given an appointment for September 25. She she also stopped the leflunomide because she developed a UTI within a week and a half of starting the medication during which time her ankle also became swollen. Her hands continue to be okay with no s welling or tenderness as at last visit. 07/07/2023: Miss Vicky Araujo returns with her daughter for follow-up of her rheumatoid arthritis, osteoporosis and osteoarthritis. She is doing very well today. the itch and dryness has stopped and the prednisone was very helpful to relieve hand swelling and pain. She continues to be off the MTX which was stopped at last visit. She has back pain which she manages with tylenol and also tramadol when it gets really bad. She offers no further concerns today. Prior Visit: 06/19/2022 Miss Perry 78 yoF returns with her daughter for follow-up of her rheumatoid arthritis, osteoporosis and osteoarthritis. The daughter translates for us. She was restarted on methotrexate at 7.5 mg weekly with 1 mg daily folic acid. Her main concern today is that the restart of MTX may have cause rash and itchy to her skin especially to lower legs. She describes that the itching and burning is worse at night. She denies other side effects fro the medication. She endorses that since starting the MTX, the hand swelling and foot pain has resolved. She was also on prednisone but that was stopped. She receives therapeutic injections to the right shoulder and lumbar She continues to reports widespread pain in most bones and muscles suggesting fribromyalgia. She is having a fair amount of lower back, upper back and some costal pain bilaterally. This is more with movements of the torso. There is also pain in the knees, buttocks and down the legs. She is also on duloxetine 60 mg daily, acetaminophen 500 q.i.d., and recently gabapentin was added by pain management. Gabapentin dose currently is 100 mg t.i.d.. It is not seemingly causing any daytime or nighttime sedation. She has discomfort at night that keeps her from sleeping. Most of this is in the lower back and upper back regions. She did have an MRI done of the spine. There are multiple compression fracture seen but none that looked acute. [facility] Medical History (Updated 07/20/23 @ 10:06 by [facility] Long-term use of immunosuppressant medication Dry skin dermatitis Leg edema Surgical History History of cholecystectomy History of appendectomy History of total abdominal hysterectomy and bilateral salpingo-oophorectomy History of bariatric surgery History of colonoscopy Family History Father Asthma Mother Rheumatoid arthritis Cardiovascular disease Social History Household Members: Family Housing: House Are you a primary animal care service worker to a significant other at home: No Do you presently have visiting nurse or other home services: Yes (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 HEART: Regular rhythm, S1-S2 heard, no murmurs, rubs or gallops. LUNG: Clear to auscultation EXTREMITIES: No edema, no calf tenderness, normal peripheral pulses. NEURO: Oriented and alert x3. No focal weakness. Reflexes symmetric. Gait normal. SKIN: Dry, chapped skin with areas of small fissures to lower legs has resolved. There are no inflammatory or neoplastic lesions. JOINT EXAM: Cervical Spine:.? Mild pains at the extremes of normal range of motion. Mild cervical muscle tenderness. Thoracic Spine:.? No scoliosis.? No tenderness on palpation. Lumbar Spine:.? Alignment normal.? Moderate pain with flexion beyond 45 degrees or with attempts at hyperextension. There is a reduction in the [id number] tenderness that was previously throughout the whole the spine and is more prominent in the lumbar region. She still feels tenderness but mild. Chest Wall:.? Mild to moderate tenderness along the right costal margin; milder discomfort with pressure on the left costal margin. No redness, bruising or swelling seen. Hands:.? Right: Pain-free range of motion. The mild swelling in the 1st 3 MCP joints seen on last visit is resolved. These are not tender. There is no more slight tenderness at the 2nd through 4th PIP joints which have some slight bony enlargement. There is no soft tissue swelling, redness or warmth. There is no flexor tendon triggering, thenar atrophy or sensory loss. Left: Normal pain- free range of motion without the previous swelling in the 1st 2 MCP joints. These are no more tender. There is also slight bony enlargement however in all the other small joints in the hand. There are no other joints however that have tenderness There is no redness, warmth, thenar atrophy, flexor tendon triggering, or sensory loss. Wrists: Slight pain with flexion extension at 80 degrees with some mild tenderness but no swelling, increased warmth or erythema. Elbows:. Normal pain-free range of motion with mild lateral epicondylar tenderness. Over the joint spaces there is no tenderness, swelling, increased warmth or erythema. Shoulders:.?? Right: Moderate pain with abduction 135 degrees or with attempts at internal and external rotation greater than 20 degrees. Mild anterior tenderness with questionable abductor weakness but no adenopathy or swelling. Left: Mild pain with abduction 150 degrees or with attempts at internal or external rotation greater than 20 degrees. There is mild anterior tenderness without abductor weakness, swelling or adenopathy. Hips:.? Range of motion is intact but causes moderate lumbar pain with extremes of normal internal or external rotation. No groin pain with motion. Hip bursa:.? Mild trochanteric tenderness. Knees:.??Right: Slight pain with extremes of flexion or extension with some mild medial compartment tenderness. There is mild patellofemoral crepitus but no redness or effusion. Left: Slight pain with the extremes of normal flexion or extension. Pain is worse with weight-bearing. There is mild medial tenderness without redness or effusion. There is mild patellofemoral crepitus with no popliteal swelling or tenderness. Ankles: There is recurrence of mild soft tissue swelling more medial than lateral with moderate tenderness. No redness or warmth. Feet:.? Normal pain-free range of motion with mild 1st MTP bony enlargement with slight tenderness in those joints. Elsewhere there is no tenderness, swelling, increased warmth or erythema. Tender points:? Mild tenderness to digital palpation at the occiput, trapezius, second rib, lateral epicondyle, knees, greater trochanter and gluteal area bilaterally. Results AMB INR Fingerstick AMB INR Fingerstick 5.1 Last Edit by Diana Bey RN on 09/13/23 11:48 interface delay Results Reviewed Results Reviewed: FINDINGS: Bone alignment is normal. No fracture or dislocation. Ankle mortise is normal. There is osteopenia. There is diffuse soft tissue swelling. There is a small calcaneal spur at the Achilles tendon insertion. There is atherosclerotic disease. XR/XR ankle RT min 3V IMPRESSION: No fracture or dislocation. Osteopenia and diffuse soft tissue swelling. Assessment & Plan Assessment & Plan (1) Osteoarthritis of lumbosacral spine: Code(s): M47.817 - Spondylosis without myelopathy or radiculopathy, lumbosacral region Category: Medical (2) Seropositive rheumatoid arthritis: Code(s): M05.9 - Rheumatoid arthritis with rheumatoid factor, unspecified Category: Medical (3) Dry skin dermatitis: Code(s): L85.3 - Xerosis cutis Category: Medical (4) Long-term use of immunosuppressant medication: Code(s): Z79.60 - skilled nursing (current) use of unspecified immunomodulators and immunosuppressants Category: Medical Plan #Swollen right ankle: Patient is currently on prednisone but the ankle is significantly swollen. This can be because of her RA or gout. I will try to see if Ortho can see her sooner and do the aspiration so we can test the aspirate for crystals and elevated WBCs. She will continue prednisone to completion then reassess her in a month once the ankle is resolved. At that time we will consider to try another medication for her RA if she has swelling and pain in her hands again. Patient reports she did not receive the prednisone sent at last visit the pharmacy did not call her to notify her of the prescription. Follow-up in 1 month I spent 40 minutes reviewing the chart, evaluating the patient and documenting. 07/20/2023 #SeroPos RA/Dry Skin Dermatitis: At last visit we had stopped the methotrexate and started her on a course of prednisone taper because she was experiencing itchy skin since restarting methotrexate. Today the patient reports that her hand swelling has resolved there has no more pain and tenderness in her finger joints. At this point I do believe the patient was experiencing symptoms related to rheumatoid arthritis. I will continue a predn isone taper as a bridge and start her on leflunomide with the hope that she will not have this the same side effects as on methotrexate. I continue to encourage patient to be more active, to gain muscle strength. 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
[2023-09-13 10:25] VITALS: BP 100/54; PULSE 80; BMI 31.2
== END 2023-09-13 11:22 | disposition home or self-care (01) ==
PROVIDERS: PCP Internal Medicine; Visit Provider Nurse Practitioner Family
DX: M47.817 Spondylosis without myelopathy or radiculopathy, lumbosacral region (principal); M05.79 Rheumatoid arthritis with rheumatoid factor of multiple sites without organ or systems involvement; L85.3 Xerosis cutis; Z79.60 Long term (current) use of unspecified immunomodulators and immunosuppressants
CPT/HCPCS: 99214

== ENCOUNTER → 2023-09-13 10:18 | Outpatient (BNVA) | payer OTHER, SELFPAY | PROVIDERS: PCP Internal Medicine; Visit Provider Nurse Practitioner Family | DX: I26.99 Other pulmonary embolism without acute cor pulmonale (principal); Z79.01 Long term (current) use of anticoagulants; Z51.81 Encounter for therapeutic drug level monitoring; M05.9 Rheumatoid arthritis with rheumatoid factor, unspecified; M47.817 Spondylosis without myelopathy or radiculopathy, lumbosacral region; M81.0 Age-related osteoporosis without current pathological fracture; L85.3 Xerosis cutis; Z79.52 Long term (current) use of systemic steroids | CPT/HCPCS: 85610; 99212 ==

== ENCOUNTER 2023-09-13 11:32 | Outpatient (AMB) | payer OTHER, SELFPAY ==
[2023-09-13 11:56] LABS: Prothrombin Time Whole Bld POC 60.6 sec (11.1-13.5); ~PT, ~INR - Anti Coag Clinic 5.1 (0.9-1.1)
--- NOTE | 2023-09-13 11:58 | MHC.OFFVISCO ---
Intake Intake Visit Reasons: Anticoagulation Allergies Iodinated Contrast Media [CONTRAST, IV] Allergy (Intermediate, Verified 09/13/23 11:36) SWELLING, ITCHINESS, RASH Penicillins [PENICILLINS] Allergy (Intermediate, Verified 09/13/23 11:36) ITCHINESS, RASH, SWELLING latex Allergy (Verified 09/13/23 11:36) Hives Sulfa (Sulfonamide Antibiotics) Allergy (Verified 09/13/23 11:36) Unknown zoledronic acid [From Reclast] Adverse Reaction (Verified 09/13/23 11:36) Joint Pain Medication List - Last Reconciled 09/13/23 by Diana Bey, RN acetaminophen (Mapap (acetaminophen)) 500 mg PO DAILY albuterol sulfate 90 mcg/actuation (ProAir HFA) 2 puffs inhalation Q4H PRN calcium carbonate (Calcium) 600 mg PO DAILY cholecalciferol (vitamin D3) 50 mcg PO DAILY clotrimazole-betamethasone 1-0.05 % 1 appl topical DAILY denosumab (Prolia) 60 mg subcut [id number] diclofenac sodium 1% 4 grams topical BID duloxetine 60 mg PO DAILY enalapril maleate 20 mg PO BID folic acid 1 mg PO DAILY gabapentin one cap twice a day and two at bedtime hydrochlorothiazide 12.5 mg PO DAILY hydrocortisone 1% 1 appl topical DAILY leflunomide Take 1 pill per day for 2 weeks, then 2 tablets daily lorazepam 0.5 mg PO DAILY PRN meclizine 25 mg PO Q6H PRN metoprolol succinate ER 50 mg PO DAILY multivitamin 1 tab PO DAILY multivitamin with folic acid 400 mcg (Daily-Rylie (with folic acid)) tabs PO ondansetron HCl 4 mg PO Q8H PRN 4 days pantoprazole 40 mg PO DAILY@0630 pravastatin 20 mg PO DAILY prednisone 3 tablets per day x 1 month then 2 tablets per day x one week and 1 tablet per day x 1 week and stop prednisone mg PO sennosides (Natural Senna Laxative) 8.6 mg PO BEDTIME temazepam 30 mg PO BEDTIME PRN tramadol 50 mg PO Q6H PRN warfarin 6 mg See Protocol PO MOWEFR@1800 Nursing Note Pt to [facility] with DIL. meter to meter check done and correlates well. INR 5.1?? out of therapeutic range of 2-3 Medications and supplements reviewed Patient status: well Medications or supplements: no changes Diet: no change Denies any signs and symptoms of bleeding or clotting or unusual bruising Bleeding, bruising, clotting discussed. Pt and DIL aware the pt is at risk for bleeding and if she hits her head or has uncontrollable bleeding, she should go to the ED. Nutritional guidance given: to have a serving of greens today and tomorrow. Dose: hold todays dose F/U INR Date : tomorrow 09/13?? Patient verbalizing understanding of instructions given. Dr Motley's office called and message given to Keke HUNTER with INR and plan to hold dose and pt will recheck tomorrow at home. Anti-Coag Initial Assessment Social Hx Patient Tobacco Use Status: Never used Tobacco alcohol intake: never Alcohol intake frequency: does not drink Coding Level of Care Code Est Patient Level 2 Diagnoses Current use of anticoagulant therapy Z79.01 Time Spent (min) 30 Results AMB INR Fingerstick AMB INR Fingerstick 5.1 Last Edit by Diana Bey, RN on 09/13/23 11:48 interface delay Assessment & Plan Assessment & Plan (1) Current use of anticoagulant therapy: Code(s): Z79.01 - assisted (current) use of anticoagulants Category: Medical
== END 2023-09-13 12:07 | disposition home or self-care (01) ==
LOC: HO.ACS 11:32
PROVIDERS: PCP Internal Medicine; Visit Provider Internal Medicine
DX: Z79.01 Long term (current) use of anticoagulants (principal)

== ENCOUNTER → 2023-09-14 10:48 | Outpatient (BNVA) | payer OTHER, SELFPAY | PROVIDERS: PCP Internal Medicine; Visit Provider Internal Medicine ==

== ENCOUNTER 2023-09-20 10:31 | Outpatient (AMB) | payer OTHER, SELFPAY ==
[2023-09-20 11:21] LABS: Prothrombin Time Whole Bld POC 18.5 sec (11.1-13.5); ~PT, ~INR - Anti Coag Clinic 1.5 (0.9-1.1)
--- NOTE | 2023-09-20 11:29 | MHC.OFFVISCO ---
Intake Intake Visit Reasons: Anticoagulation Allergies Iodinated Contrast Media [CONTRAST, IV] Allergy (Intermediate, Verified 09/20/23 10:40) SWELLING, ITCHINESS, RASH Penicillins [PENICILLINS] Allergy (Intermediate, Verified 09/20/23 10:40) ITCHINESS, RASH, SWELLING latex Allergy (Verified 09/20/23 10:40) Hives Sulfa (Sulfonamide Antibiotics) Allergy (Verified 09/20/23 10:40) Unknown zoledronic acid [From Reclast] Adverse Reaction (Verified 09/20/23 10:40) Joint Pain Medication List - Last Reconciled 09/20/23 by Diana Menon, RN acetaminophen (Mapap (acetaminophen)) 500 mg PO DAILY albuterol sulfate 90 mcg/actuation (ProAir HFA) 2 puffs inhalation Q4H PRN calcium carbonate (Calcium) 600 mg PO DAILY cholecalciferol (vitamin D3) 50 mcg PO DAILY clotrimazole-betamethasone 1-0.05 % 1 appl topical DAILY denosumab (Prolia) 60 mg subcut [id number] diclofenac sodium 1% 4 grams topical BID duloxetine 60 mg PO DAILY enalapril maleate 20 mg PO BID hydrochlorothiazide 12.5 mg PO DAILY hydrocortisone 1% 1 appl topical DAILY lorazepam 0.5 mg PO DAILY PRN meclizine 25 mg PO Q6H PRN metoprolol succinate ER 50 mg PO DAILY multivitamin 1 tab PO DAILY ondansetron HCl 4 mg PO Q8H PRN 4 days pantoprazole 40 mg PO DAILY@0630 sennosides (Natural Senna Laxative) 8.6 mg PO BEDTIME simvastatin 10 mg PO DAILY temazepam 30 mg PO BEDTIME PRN warfarin 6 mg See Protocol PO MOWEFR@1800 Nursing Note Amb to [facility] accomp by DNL Yolanda, pt feeling welloverall, however sts having issues again with ankle/rheumatoid pain PT usually home meter pt however has been having issues with meter and per DNL strips are sts when new bottle of strips arrives, pt has been putting new bottle with meter, taking old bottle (with a few strips) and putting in cupboard, then they Medications and supplements reviewed, noted multiple medications discrepencies, discontinued medications and question if on pravastatin or simvastatin pt is off all prednisone at present Denies any signs and symptoms of bleeding, bruising, or clotting. Bleeding, bruising, clotting discussed INR 1.5 critical low- DNL sts that pt has been eating spinach and cabbage everyday because of high INRs Nutritional guidance given- lengthy discussion related to types of greens, serving size and that extra greens should just be a day or two depending on the types of greens consumed Dose: 6mg today and tomorrow then 3mg until F/U DNL asking about other medicine vs Warfarin as that has been suggested by one of her providers lengthy discussion regarding Eloquis and Xarelto, concern secondary to previous bariatric surgery 20 years ago, ?type of procedure- pt expressed concerns over monitoring with those medications, reviewed less medication and food interactions with other meds so doses are same daily (BID with Eloquis and daily with Xarelto) so less monitoring indicated DNL to get records from [facility] regarding surgery so that info can be presented to PCP at their visit next week information on the DOACs (handouts in Hebrew) to pt DNL to also check for actual medication that patient is on reviewed that pravastatin has no interaction with warfarin and simvastatin can increase INR and may explain some of her INR elevations of late also discussed concerns with continuing as a self daksha as many issues of late F/U INR: Saturday 09/23 Patient and DNL verbalizes understanding of instructions given Critical INR reported at 1205 to Nohemi HUNTER at [facility] critical results line, recent INR elevations, holds, increased greens, todays INR 1.5, dosing increase to 6mg x2 days then 3mg till F/U 09/23 and concerns over questions of different medications, possible DOAC, bariatric surgery in past. Pt has PCP appt next week. DNL TC to ACS at 1214 pt is taking Simvastatin not pravastatin Anti-Coag Initial Assessment Social Hx Patient Tobacco Use Status: Never used Tobacco alcohol intake: never Alcohol intake frequency: does not drink Questionnaires HAS-BLED Does the patient had uncontrolled Hypertension?: No Does the patient have renal disease?: No Does the patient have liver disease?: No Does the patient have a history of stroke?: No Has the patient had major bleeding or predisposition to bleeding?: No Does the patient have labile INRs?: Yes Is the patient over 65 years of age?: Yes Is the patient on medications that gives them a predisposition to bleeding?: Yes Does the patient use alcohol?: No HAS-BLED Score: 3 CHADSVASC Age: 75 or over Gender: Female Does the patient have a history of CHF?: No Does the patient have a history of Hypertension?: Yes Does the patient have a history of Stroke/TIA/Thromboembolism?: Yes Does the patient have a history of Vascular Disease (prior [place], PAD or aortic plaque)?: Yes Does the patient have a history of Diabetes?: No CHADS VACS Score: 7 Rolando Prediction Score Rsk VTE Active Cancer: No Previous VTE, excluding superficial vein thrombosis: Yes Reduced mobility: No Already known Thrombophilic Condition: Yes With-in last month Trauma and/or Surgery: No Elderly 70 year or older: Yes Heart and/or Respiratory Failure: No Acute Myocardial infarction and/or Ischemic Stroke: No Acute Infection and/or Rheumatologic Disorder: Yes Obesity (BMI 30 or greater): Yes Ongoing Hormonal Treatment: No Score: 9 Rolando Score less than 4; Low Risk of VTE Rolando Score 4 or greater; High Risk of VTE Coding Level of Care Code Est Patient Level 2 Diagnoses Current use of anticoagulant therapy Z79.01 Time Spent (min) 45 Assessment & Plan Assessment & Plan (1) Current use of anticoagulant therapy: Code(s): 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
== END 2023-09-20 13:28 | disposition home or self-care (01) ==
LOC: HO.ACS 10:31
PROVIDERS: PCP Internal Medicine; Visit Provider Internal Medicine
DX: Z79.01 Long term (current) use of anticoagulants (principal)

== ENCOUNTER → 2023-09-20 10:31 | Outpatient (BNVA) | payer OTHER, SELFPAY | PROVIDERS: PCP Internal Medicine; Visit Provider Internal Medicine | DX: I26.99 Other pulmonary embolism without acute cor pulmonale (principal); Z51.81 Encounter for therapeutic drug level monitoring; Z79.01 Long term (current) use of anticoagulants | CPT/HCPCS: 85610; 99212 ==

== ENCOUNTER 2023-09-21 13:10 | Outpatient (AMB) | payer OTHER, SELFPAY ==
--- NOTE | 2023-09-21 13:19 | MHC.OFFVIS ---
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 Patient reports pain and swelling for over 2 months, states at times her foot turns black. Her pain makes it difficult to walk and has sensitivity with putting on clothes/socks. She was seen at an urgent care where xrays were taken, she was given prednisone. She also seen by her dandy operator who referred her to orthopedics. Denies injury. Hx of RA. Patient declined application systems architect services and request her daughter in law interpret. Allergies Iodinated Contrast Media [CONTRAST, IV] Allergy (Intermediate, Verified 09/21/23 13:27) SWELLING, ITCHINESS, RASH Penicillins [PENICILLINS] Allergy (Intermediate, Verified 09/21/23 13:27) ITCHINESS, RASH, SWELLING latex Allergy (Verified 09/21/23 13:27) Hives Sulfa (Sulfonamide Antibiotics) Allergy (Verified 09/21/23 13:27) Unknown zoledronic acid [From Reclast] Adverse Reaction (Verified 09/21/23 13:27) Joint Pain Medication List - Last Reconciled 09/21/23 by Chetna Krishna PA-C acetaminophen (Mapap (acetaminophen)) 500 mg PO DAILY albuterol sulfate 90 mcg/actuation (ProAir HFA) 2 puffs inhalation Q4H PRN calcium carbonate (Calcium 600) 600 mg PO DAILY cholecalciferol (vitamin D3) 50 mcg PO DAILY clotrimazole-betamethasone 1-0.05 % 1 appl topical DAILY denosumab (Prolia) 60 mg subcut [id number] diclofenac sodium 1% 4 grams topical BID duloxetine 60 mg PO DAILY enalapril maleate 20 mg PO BID hydrochlorothiazide 12.5 mg PO DAILY hydrocortisone 1% 1 appl topical DAILY lorazepam 0.5 mg PO DAILY PRN meclizine 25 mg PO Q6H PRN metoprolol succinate ER 50 mg PO DAILY multivitamin 1 tab PO DAILY ondansetron HCl 4 mg PO Q8H PRN 4 days pantoprazole 40 mg PO DAILY@0630 sennosides (Natural Senna Laxative) 8.6 mg PO BEDTIME simvastatin 10 mg PO DAILY temazepam 30 mg PO BEDTIME PRN warfarin 6 mg See Protocol PO MOWEFR@1800 HPI 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 She 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 pain and swelling in her ankle which occasionally turns black. Her pain makes it difficult to walk and has sensitivity with putting on clothes and socks. She was seen at urgent care where x-rays were performed and she was prescribed prednisone which provided her relief. She was also seen by her dandy operator who referred her to our office. She has not had any recent injury. She has a history of RA. She does not have a history of gout. [facility] Medical History (Updated 09/21/23 @ 13:46 by Chetna Krishna PA-C) Long-term use of immunosuppressant medication Dry skin dermatitis Leg edema Surgical History History of cholecystectomy History of appendectomy History of total abdominal hysterectomy and bilateral salpingo-oophorectomy History of bariatric surgery History of colonoscopy Family History Father Asthma Mother Rheumatoid arthritis Cardiovascular disease Social History Household Members: Family Housing: House Are you a primary healthcare consulting manager to a significant other at home: No Do you presently have visiting nurse or other home services: Yes (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) Alcohol intake: never Patient Tobacco Use Status: Never used Tobacco Advance Directives Date on File: 03/17/20 service: No Current occupational status: disabled Review of Systems Const All systems reviewed & are unremarkable except as noted in HPI and below Physical Exam Vital Signs: BMI result Body Mass Index 31.2 Const General: cooperative, healthy appearing, comfortable, no acute distress, well developed and alert Orientation/consciousness: patient oriented x3 HEENT Head: Yes normal to inspection, Yes normocephalic and Yes atraumatic Eyes General: appearance normal, both eyes and all related structures Resp Effort & Inspection: normal respiratory effort and able to speak in complete sentences Cardio Rate: regular rate Peripheral pulses: Peripheral pulses 2+ throughout GI Palpation (GI): Soft to palpation Skin Lesions: no lesions Rashes: no rashes Neuro General: patient oriented x3 Extrem Other: Right ankle: Normal to inspection. She does have diffused swelling over the lateral aspect of the ankle with tenderness to palpation. NVI. Office Procedures Joint Injection/Drain Joint Injection/Drain Details: aspiration Primary Site: right ankle Prep: site was prepped using aseptic technique and injection warnings given Injected: in the joint Procedure: The patient tolerated the procedure well Coding - Large joint Procedure code (CPT) selection complete Results Reviewed Results Reviewed: XR ankle RT min 3V IMPRESSION: No fracture or dislocation. Osteopenia and diffuse soft tissue swelling. Assessment & Plan Assessment & Plan (1) Peroneal tendinitis, right leg: Code(s): M76.71 - Peroneal tendinitis, right leg Category: Medical Plan Dr. George was available to see the patient with me today. We attempted an aspiration on the ankle joint along with area along the lateral aspect of ankle where her swelling is present. We were unable to obtain any fluid or hematoma from the lateral side of ankle. She was also given an amarilis wrap and a boot which she will use as tolerated. She will begin physical therapy to work on ROM and strengthening. She will see us back if symptoms arise. There was no evidence of gout. Orders: Orders PT Evaluation and Treatment 09/21/23 M76.71 - Peroneal tendinitis, right leg Patient Instructions: Scribed for Chetna Krishna PA-C, by Den Sales director of graduate medical education, on 09/21/2023 at 1:15 PM EST. IChetna PA-C, have personally reviewed and agree with the information entered by the scribe. Coding Level of Care Code New Pt Level 3 (66581) Diagnoses Peroneal tendinitis, right leg M76.71 CPT Codes Coding - Large joint: 76303 - Large joint ([id number])
[2023-09-21 13:27] VITALS: BMI 31.2
== END 2023-09-21 14:14 | disposition home or self-care (01) ==
PROVIDERS: PCP Internal Medicine; Visit Provider Physician Assistant
DX: M76.71 Peroneal tendinitis, right leg (principal)
CPT/HCPCS: 20605; 99203

== ENCOUNTER → 2023-09-21 13:10 | Outpatient (BNVA) | payer OTHER, SELFPAY | PROVIDERS: PCP Internal Medicine; Visit Provider Physician Assistant | DX: M76.71 Peroneal tendinitis, right leg (principal); M25.471 Effusion, right ankle | CPT/HCPCS: 20605; 99202 ==

== ENCOUNTER → 2023-09-24 10:52 | Outpatient (BNVA) | payer OTHER, SELFPAY | PROVIDERS: PCP Internal Medicine; Visit Provider Internal Medicine ==

== ENCOUNTER 2023-09-28 10:44 | Outpatient (REF) | payer OTHER, SELFPAY ==
[2023-09-28 12:25] LABS: Alanine Aminotransferase 12 U/L (0-31); Albumin Level 3.6 g/dL (3.5-5.0); Alkaline Phosphatase 87 U/L (39-117); Aspartate Amino Transferase 23 U/L (5-31); Bilirubin Direct 0.1 mg/dL (0.0-0.5); Bilirubin Total 0.3 mg/dL (0.0-1.0); Cholesterol 204 mg/dL (<200); HDL Cholesterol 72 mg/dL (>40); LDL Cholesterol Calculated 116 mg/dL (<100); Total Protein 7.5 g/dL (6.5-8.0); Triglycerides 84 mg/dL (<150)
== END 2023-09-28 10:45 | disposition home or self-care (01) ==
LOC: HO.HHCL 10:44
PROVIDERS: Visit Provider Internal Medicine
DX: E78.2 Mixed hyperlipidemia (principal)
CPT/HCPCS: 36415; 80061; 80076

== ENCOUNTER → 2023-10-01 16:11 | Outpatient (BNVA) | payer OTHER, SELFPAY | PROVIDERS: PCP Internal Medicine; Visit Provider Internal Medicine ==

== ENCOUNTER → 2023-10-10 13:14 | Outpatient (BNVA) | payer OTHER, SELFPAY | PROVIDERS: PCP Internal Medicine; Visit Provider Internal Medicine ==

== ENCOUNTER → 2023-10-17 10:27 | Outpatient (BNVA) | payer OTHER, SELFPAY | PROVIDERS: PCP Internal Medicine; Visit Provider Internal Medicine ==

== ENCOUNTER → 2023-10-24 13:51 | Outpatient (BNVA) | payer OTHER, SELFPAY | PROVIDERS: PCP Internal Medicine; Visit Provider Internal Medicine ==

== ENCOUNTER → 2023-10-31 11:23 | Outpatient (BNVA) | payer OTHER, SELFPAY | PROVIDERS: PCP Internal Medicine; Visit Provider Internal Medicine ==

== ENCOUNTER 2023-11-01 08:32 | Outpatient (AMB) | payer OTHER, SELFPAY ==
[2023-11-01 08:36] VITALS: BP 130/64; PULSE 88; O2SAT 98; BMI 30.1
--- NOTE | 2023-11-01 08:36 | A.OFFVIS_ITS ---
Vital Signs 11/01/23 08:36 Height 5 ft 3 in Weight 169 lb 15.622 oz BMI 30.1 BP 130/64 Blood Pressure Location Rt brachial Position Sitting Pulse 88 Pulse Oximetry (%) 98 Intake Visit Reasons: RA/Osteoporosis/CM Intake Note: Patient last seen 09/13/23, presents today for follow up and test results. Farmworker Livestock Required: Yes Farmworker Livestock Language: Director Of Vital Statistics Name: Yolanda Information Interpreted: non-clinical & clinical Allergies Iodinated Contrast Media [CONTRAST, IV] Allergy (Intermediate, Verified 11/01/23 08:53) SWELLING, ITCHINESS, RASH Penicillins [PENICILLINS] Allergy (Intermediate, Verified 11/01/23 08:53) ITCHINESS, RASH, SWELLING latex Allergy (Verified 11/01/23 08:53) Hives Sulfa (Sulfonamide Antibiotics) Allergy (Verified 11/01/23 08:53) Unknown zoledronic acid [From Reclast] Adverse Reaction (Verified 11/01/23 08:53) Joint Pain HPI Comments Details: Miss Vicky Araujo returns with her daughter for follow-up of her rheumatoid arthritis, osteoporosis and osteoarthritis and swollen right ankle. The right ankle has been swollen and painful continuously and is her main concern today. It was helped by the low dose prednisone but not resolved. Ortho Consult was not able to aspirate, but she recived a boot and bismark wrap to use. She says ortho say it was not gout. She did restart the Leflunomide. Her hand swelling and pain have remain resolved. 09/13/2023 Miss Vicky Araujo returns with her daughter for follow-up of her rheumatoid arthritis, osteoporosis and osteoarthritis. She is not doing very well today her right ankle has been swollen and painful for about 1 month. She was treated at the [facility] with high dose Prednisone since 09/04 and it has improved but still remains significantly swollen. X-rays taken at [facility] showed swollen soft tissue, but no fractures. She was also referred for Ortho and was given an appointment for September 25. She she also stopped the leflunomide because she developed a UTI within a week and a half of starting the medication during which time her ankle also became swollen. Her hands continue to be okay with no swelling or tenderness as at last visit. 07/07/2023: Miss Vicky 78 yoF returns with her daughter for follow-up of her rheumatoid arthritis, osteoporosis and osteoarthritis. She is doing very well today. the itch and dryness has stopped and the prednisone was very helpful to relieve hand swelling and pain. She continues to be off the MTX which was stopped at last visit. She has back pain which she manages with tylenol and also tramadol when it gets really bad. She offers no further concerns today. Prior Visit: 06/19/2022 Miss Vicky Abrams yoF returns with her daughter for follow-up of her rheumatoid arthritis, osteoporosis and osteoarthritis. The daughter translates for us. She was restarted on methotrexate at 7.5 mg weekly with 1 mg daily folic acid. Her main concern today is that the restart of MTX may have cause rash and itchy to her skin especially to lower legs. She describes that the itching and burning is worse at night. She denies other side effects fro the medication. She endorses that since starting the MTX, the hand swelling and foot pain has resolved. She was also on prednisone but that was stopped. She receives therapeutic injections to the right shoulder and lumbar She continues to reports widespread pain in most bones and muscles suggesting fribromyalgia. She is having a fair amount of lower back, upper back and some costal pain bilaterally. This is more with movements of the torso. There is also pain in the knees, buttocks and down the legs. She is also on duloxetine 60 mg daily, acetaminophen 500 q.i.d., and recently gabapentin was added by pain management. Gabapentin dose currently is 100 mg t.i.d.. It is not seemingly causing any daytime or nighttime sedation. She has discomfort at night that keeps her from sleeping. Most of this is in the lower back and upper back regions. She did have an MRI done of the spine. There are multiple compression fracture seen but none that looked acute. [facility] Medical History (Updated 11/01/23 @ 09:15 by JABARI Wolf) Right ankle swelling Long-term use of immunosuppressant medication Dry skin dermatitis Leg edema Surgical History History of cholecystectomy History of appendectomy History of total abdominal hysterectomy and bilateral salpingo-oophorectomy History of bariatric surgery History of colonoscopy Family History Father Asthma Mother Rheumatoid arthritis Cardiovascular disease Social History Household Members: Family Housing: House Are you a primary care tech to a significant other at home: No Do you presently have visiting nurse or other home services: Yes (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 HEART: Regular rhythm, S1-S2 heard, no murmurs, rubs or gallops. LUNG: Clear to auscultation EXTREMITIES: No edema, no calf tenderness, normal peripheral pulses. NEURO: Oriented and alert x3. No focal weakness. Reflexes symmetric. Gait normal. SKIN: Dry, chapped skin with areas of small fissures to lower legs has resolved. There are no inflammatory or neoplastic lesions. JOINT EXAM: Cervical Spine:.? Mild pains at the extremes of normal range of motion. Mild cervical muscle tenderness. Thoracic Spine:.? No scoliosis.? No tenderness on palpation. Lumbar Spine:.? Alignment normal.? Moderate pain with flexion beyond 45 degrees or with attempts at hyperextension. There is a reduction in the [id number] tenderness that was previously throughout the whole the spine and is more prominent in the lumbar region. She still feels tenderness but mild. Chest Wall:.? Mild to moderate tenderness along the right costal margin; milder discomfort with pressure on the left costal margin. No redness, bruising or swelling seen. Hands:.? Right: Pain-free range of motion. The mild swelling in the 1st 3 MCP joints seen on last visit is resolved. These are not tender. There is no more slight tenderness at the 2nd through 4th PIP joints which have some slight bony enlargement. There is no soft tissue swelling, redness or warmth. There is no flexor tendon triggering, thenar atrophy or sensory loss. Left: Normal pain- free range of motion without the previous swelling in the 1st 2 MCP joints. These are no more tender. There is also slight bony enlargement however in all the other small joints in the hand. There are no other joints however that have tenderness There is no redness, warmth, thenar atrophy, flexor tendon triggering, or sensory loss. Wrists: Slight pain with flexion extension at 80 degrees with some mild tenderness but no swelling, increased warmth or erythema. Elbows:. Normal pain-free range of motion with mild lateral epicondylar tenderness. Over the joint spaces there is no tenderness, swelling, increased warmth or erythema. Shoulders:.?? Right: Moderate pain with abduction 135 degrees or with attempts at internal and external rotation greater than 20 degrees. Mild anterior tenderness with questionable abductor weakness but no adenopathy or swelling. Left: Mild pain with abduction 150 degrees or with attempts at internal or external rotation greater than 20 degrees. There is mild anterior tenderness without abductor weakness, swelling or adenopathy. Hips:.? Range of motion is intact but causes moderate lumbar pain with extremes of normal internal or external rotation. No groin pain with motion. Hip bursa:.? Mild trochanteric tenderness. Knees:.??Right: Slight pain with extremes of flexion or extension with some mild medial compartment tenderness. There is mild patellofemoral crepitus but no redness or effusion. Left: Slight pain with the extremes of normal flexion or extension. Pain is worse with weight-bearing. There is mild medial tenderness without redness or effusion. There is mild patellofemoral crepitus with no popliteal swelling or tenderness. Ankles: There is recurrence of moderate soft tissue swelling laterally more with moderate tenderness with erythema and warmth. Feet:.? Normal pain-free range of motion with mild 1st MTP bony enlargement with slight tenderness in those joints. Elsewhere there is no tenderness, swelling, increased warmth or erythema. Tender points:? Mild tenderness to digital palpation at the occiput, trapezius, second rib, lateral epicondyle, knees, greater trochanter and gluteal area bilaterally. Results Reviewed Results Reviewed: Laboratory Tests 09/11/23 12:50 ESR 25 H Creatinine 0.88 AST 22 ALT 17 C-Reactive Protein 0.24 Laboratory Tests 09/04/23 15:33 Uric Acid 4.3 Assessment & Plan Assessment & Plan (1) Seropositive rheumatoid arthritis: Code(s): M05.9 - Rheumatoid arthritis with rheumatoid factor, unspecified Category: Medical (2) Long-term use of immunosuppressant medication: Code(s): Z79.60 - residential (current) use of unspecified immunomodulators and immunosuppressants Category: Medical (3) Right ankle swelling: Code(s): M25.471 - Effusion, right ankle Category: Medical (4) Peroneal tendinitis, right leg: Code(s): M76.71 - Peroneal tendinitis, right leg Category: Medical Plan SeroPos RA/Dry Skin Dermatitis: Continue leflunomide 20mg QD. Hand pain and swelling resolved. ESR stephane elevated 28 #Plumbing Foreman Use: We will continue to monitor her CBC for cytopenia, CMP for adequate liver and kidney function and possible side effects. Patient knows to hold the medication in the event of fevers, infection, surgery and non-healing wound #Swollen right ankle: Less likely Gout UA 4.3. Will prescribe higher taper dose. Ortho did not think this is gout but likely Peroneal tenditinitis. The patient will wear the boot and Bismark wrap when she is more active. I encouraged her to do this as this will protect her tendon from damage. The hope is that this will be resolved with the prednisone and so we could forego the need to start stronger RA medications. Follow-up in 4 month I spent 30 minutes reviewing the chart, evaluating the patient and documenting. Orders: Orders Erythrocyte Sedimentation Rate Today M05.9 - Rheumatoid arthritis with rheumatoid factor, unspecified, Z79.60 - residential (current) use of unspecified immunomodulators and immunosuppressants Comprehensive Met. Panel Today M05.9 - Rheumatoid arthritis with rheumatoid fa ctor, unspecified, Z79.60 - master planner (current) use of unspecified immunomodulators and immunosuppressants C Reactive Protein Today M05.9 - Rheumatoid arthritis with rheumatoid factor, unspecified, Z79.60 - residential (current) use of unspecified immunomodulators and immunosuppressants Complete Blood Count Auto Diff Today M05.9 - Rheumatoid arthritis with rheumatoid factor, unspecified, Z79.60 - residential (current) use of unspecified immunomodulators and immunosuppressants Medications: New prednisone 3 tablets per day x 5 days 2 tablets per day x 5 days 1 tablet per day x 7 days 10 mg PO DAILY 60 tabs 0RF M25.471 - Effusion, right ankle Coding Level of Care Code Est Pt Level 4 (83846) Complex EM visit Add On G2211 Diagnoses Seropositive rheumatoid arthritis M05.9 Long-term use of immunosuppressant medication Z79.60 Right ankle swelling M25.471 Peroneal tendinitis, right leg M76.71
== END 2023-11-01 09:23 | disposition home or self-care (01) ==
PROVIDERS: PCP Internal Medicine; Visit Provider Nurse Practitioner Family
DX: M05.79 Rheumatoid arthritis with rheumatoid factor of multiple sites without organ or systems involvement (principal); Z79.60 Long term (current) use of unspecified immunomodulators and immunosuppressants; M25.471 Effusion, right ankle; M76.71 Peroneal tendinitis, right leg
CPT/HCPCS: 99214; G2211

== ENCOUNTER → 2023-11-01 08:32 | Outpatient (BNVA) | payer OTHER, SELFPAY | PROVIDERS: PCP Internal Medicine; Visit Provider Nurse Practitioner Family | DX: M25.471 Effusion, right ankle (principal); M06.9 Rheumatoid arthritis, unspecified; M76.71 Peroneal tendinitis, right leg; M81.0 Age-related osteoporosis without current pathological fracture; Z79.60 Long term (current) use of unspecified immunomodulators and immunosuppressants | CPT/HCPCS: 99212 ==

== ENCOUNTER → 2023-11-05 14:04 | Outpatient (BNVA) | payer OTHER, SELFPAY | PROVIDERS: PCP Internal Medicine; Visit Provider Internal Medicine ==

== ENCOUNTER → 2023-11-12 15:32 | Outpatient (BNVA) | payer OTHER, SELFPAY | PROVIDERS: PCP Internal Medicine; Visit Provider Internal Medicine ==

== ENCOUNTER → 2023-11-19 15:02 | Outpatient (BNVA) | payer OTHER, SELFPAY | PROVIDERS: PCP Internal Medicine; Visit Provider Internal Medicine ==

== ENCOUNTER → 2023-11-26 11:42 | Outpatient (BNVA) | payer OTHER, SELFPAY | PROVIDERS: PCP Internal Medicine; Visit Provider Internal Medicine ==

== ENCOUNTER → 2023-12-04 11:45 | Outpatient (BNVA) | payer OTHER, SELFPAY | PROVIDERS: PCP Internal Medicine; Visit Provider Internal Medicine ==

== ENCOUNTER → 2023-12-12 14:18 | Outpatient (BNVA) | payer OTHER, SELFPAY | PROVIDERS: PCP Internal Medicine; Visit Provider Internal Medicine ==

== ENCOUNTER 2023-12-18 09:28 | Outpatient (REF) | payer OTHER, SELFPAY ==
[2023-12-18 10:06] LABS: MANUAL DIFF FLAG NO
[2023-12-18 10:22] LABS: Basophils Percent Auto 1.1 % (0-2); Eosinophils Absolute Auto 0.1 X10*3/uL (0.0-0.4); Eosinophils Percent Auto 3.9 % (0-4); Hematocrit 38.1 % (37.0-47.0); Hemoglobin 11.2 g/dl (12.0-16.0); Imm Gran Abs Auto 0.01 X10*3/uL (0.00-0.03); Imm Gran Pct Auto 0.3 % (0.0-0.4); Lymphocytes Absolute Auto 1.8 X10*3/uL (1.2-4.9); Lymphocytes Percent Auto 49.3 % (20-40); Mean Corpuscular HGB Conc 29.4 g/dl (31.0-35.0); Mean Corpuscular Hemoglobin 24.9 pg (27.0-33.0); Mean Corpuscular Volume 84.7 fL (80.0-98.0); Mean Platelet Volume 10.7 fL (9.4-12.3); Monocytes Absolute Auto 0.5 X10*3/uL (0.1-1.2); Monocytes Percent Auto 12.6 % (2-11); Neutrophils Absolute Auto 1.2 x10*3/uL (2.0-8.3); Neutrophils Percent Auto 32.8 % (45-73); Platelet Count 211 X10*3/uL (160-400); Red Cell Distribution Width 17.3 % (11.0-16.0); White Blood Count 3.6 X10*3/uL (4.8-10.8)
[2023-12-18 11:20] LABS: Alanine Aminotransferase 14 U/L (0-31); Albumin Level 3.3 g/dL (3.5-5.0); Alkaline Phosphatase 73 U/L (39-117); Anion Gap 14 (12-20); Aspartate Amino Transferase 23 U/L (5-31); Bilirubin Total 0.3 mg/dL (0.0-1.0); Blood Urea Nitrogen 9 mg/dL (9-16); C Reactive Protein 0.39 mg/dL (< or = 0.50); Calcium 9.4 mg/dL (8.4-10.2); Carbon Dioxide 25 mmol/L (22-29); Chloride 108 mmol/L (96-108); Estimated Glomerular Filt Rate > 60; Glucose Random 78 mg/dL (60-115); Potassium 4.4 mmol/L (3.3-5.1); Sodium 143 mmol/L (135-145); Total Protein 6.4 g/dL (6.5-8.0)
[2023-12-18 11:39] LABS: Erythrocyte Sedimentation Rate 21 MM/HR (0-20)
== END 2023-12-18 09:29 | disposition home or self-care (01) ==
LOC: HO.LAB 09:28
PROVIDERS: PCP Internal Medicine; Visit Provider Nurse Practitioner Family
DX: M05.9 Rheumatoid arthritis with rheumatoid factor, unspecified (principal); Z79.60 Long term (current) use of unspecified immunomodulators and immunosuppressants
CPT/HCPCS: 36415; 80053; 85025; 85652; 86140

== ENCOUNTER 2023-12-19 13:08 | Outpatient (AMB) | payer OTHER, SELFPAY ==
--- NOTE | 2023-12-19 13:23 | AM.OFFVISNUR ---
Intake Visit Reasons: prolia Allergies Iodinated Contrast Media [CONTRAST, IV] Allergy (Intermediate, Verified 12/12/23 14:36) SWELLING, ITCHINESS, RASH Penicillins [PENICILLINS] Allergy (Intermediate, Verified 12/12/23 14:36) ITCHINESS, RASH, SWELLING latex Allergy (Verified 12/12/23 14:36) Hives Sulfa (Sulfonamide Antibiotics) Allergy (Verified 12/12/23 14:36) Unknown zoledronic acid [From Reclast] Adverse Reaction (Verified 12/12/23 14:36) Joint Pain Office Meds Prolia 60 mg/mL subcutaneous syringe Performing Provider: Abdelrahman Hester MD Performing Location: [facility] Rheumatology Administered by: Teresa Rae RN on 12/19/23 13:23 Dose Route Admin Location Dispensed Lot Number Expiration Date [facility] Applications Project Manager 60 mg subcut right upper arm 1 mL [id number] 01/25/26 79579-703-26 AMGEN Comments: Pt consent form signed. Pt denies any previous reactions with past injections. Pt tolerated injection well. Assessment & Plan Assessment & Plan Orders: Orders AMB Denosumab Injection Practice Supplied Today M80.00XS - Age-related osteoporosis with current pathological fracture, unspecified site, sequela Medications: New Prolia (denosumab) 60 mg subcut ONCE 1 mL 0RF NS M80.00XS - Age-related osteoporosis with current pathological fracture, unspecified site, sequela
== END 2023-12-19 13:22 | disposition home or self-care (01) ==
PROVIDERS: PCP Internal Medicine
DX: M80.00XS Age-related osteoporosis with current pathological fracture, unspecified site, sequela (principal)

== ENCOUNTER → 2023-12-19 13:08 | Outpatient (BNVA) | payer OTHER, SELFPAY | PROVIDERS: PCP Internal Medicine | DX: M80.00XA Age-related osteoporosis with current pathological fracture, unspecified site, initial encounter for fracture (principal); I26.99 Other pulmonary embolism without acute cor pulmonale; Z51.81 Encounter for therapeutic drug level monitoring; Z79.01 Long term (current) use of anticoagulants | CPT/HCPCS: 96372; J0897 ==

== ENCOUNTER 2023-12-20 11:19 | Outpatient (AMB) | payer OTHER, SELFPAY ==
--- NOTE | 2023-12-20 11:42 | MHC.OFFVISCO ---
Intake Intake Visit Reasons: Anticoagulation Allergies Iodinated Contrast Media [CONTRAST, IV] Allergy (Intermediate, Verified 12/20/23 11:20) SWELLING, ITCHINESS, RASH Penicillins [PENICILLINS] Allergy (Intermediate, Verified 12/20/23 11:20) ITCHINESS, RASH, SWELLING latex Allergy (Verified 12/20/23 11:20) Hives Sulfa (Sulfonamide Antibiotics) Allergy (Verified 12/20/23 11:20) Unknown zoledronic acid [From Reclast] Adverse Reaction (Verified 12/20/23 11:20) Joint Pain Medication List - Last Reconciled 12/20/23 by Argenis Cruz RN acetaminophen (Mapap (acetaminophen)) 500 mg PO DAILY albuterol sulfate 90 mcg/actuation (ProAir HFA) 2 puffs inhalation Q4H PRN apixaban (Eliquis) 5 mg PO BID atorvastatin 20 mg PO DAILY calcium carbonate (Calcium 600) 600 mg PO DAILY cholecalciferol (vitamin D3) 50 mcg PO DAILY clotrimazole-betamethasone 1-0.05 % 1 appl topical DAILY cyanocobalamin (vitamin B-12) 1,000 mcg sublingual DAILY denosumab (Prolia) 60 mg subcut [id number] diclofenac sodium 1% 4 grams topical BID duloxetine 60 mg PO DAILY enalapril maleate 20 mg PO BID hydrochlorothiazide 12.5 mg PO DAILY hydrocortisone 1% 1 appl topical DAILY leflunomide 20 mg PO DAILY lorazepam 0.5 mg PO DAILY PRN meclizine 25 mg PO Q6H PRN metoprolol succinate ER 50 mg PO DAILY multivitamin 1 tab PO DAILY ondansetron HCl 4 mg PO Q8H PRN 4 days pantoprazole 40 mg PO DAILY@0630 prednisone Take 2 tabs daily for 2 weeks then remain on 1 tab daily sennosides (Natural Senna Laxative) 8.6 mg PO BEDTIME temazepam 30 mg PO BEDTIME PRN Nursing Note pt and daughter christine mata came to clinic stating changing to Eliquis, her INR yesterday was 2.0 they asked if ACS would check her today due to her hx of labile INR an exit INR was performed INR: 2.4 in therapeutic range Medications and supplements reviewed- pt to pick Eliquis up at pharmacy today, it was explained there are a few meds that cannot be taken with Eliquis and to discuss with pharmacy today. Pt is to start eliquis per orders of Blair Salgado instructions given in Lao and Israeli Denies any signs and symptoms of bleeding or bruising or clotting. Bleeding, bruising, clotting discussed Nutritional guidance given Dose: stop warfarin tonight and start Eliquis q 12 hours apart tomorrow DNL and Patient verbalizes understanding of instructions given Anti-Coag Initial Assessment Social Hx Patient Tobacco Use Status: Never used Tobacco alcohol intake: never Alcohol intake frequency: does not drink Coding Level of Care Code Est Patient Level 1 Diagnoses Current use of anticoagulant therapy Z79.01 Results AMB INR Fingerstick AMB INR Fingerstick 2.4 Last Edit by Argenis Cruz RN on 12/20/23 11:55 MANUAL ENTRY Assessment & Plan Assessment & Plan (1) Current use of anticoagulant therapy: Code(s): Z79.01 - terminal carman (current) use of anticoagulants Category: Medical
[2023-12-20 13:16] LABS: Prothrombin Time Whole Bld POC 29.3 sec (11.1-13.5); ~PT, ~INR - Anti Coag Clinic 2.4 (0.9-1.1)
== END 2023-12-20 11:56 | disposition home or self-care (01) ==
LOC: HO.ACS 11:19
PROVIDERS: PCP Internal Medicine; Visit Provider Internal Medicine
DX: Z79.01 Long term (current) use of anticoagulants (principal)

== ENCOUNTER → 2023-12-20 11:19 | Outpatient (BNVA) | payer OTHER, SELFPAY | PROVIDERS: PCP Internal Medicine; Visit Provider Internal Medicine | DX: I26.99 Other pulmonary embolism without acute cor pulmonale (principal); Z79.01 Long term (current) use of anticoagulants; Z51.81 Encounter for therapeutic drug level monitoring | CPT/HCPCS: 85610; 99211 ==

== ENCOUNTER 2024-01-14 14:53 | Outpatient (REF) | payer OTHER, SELFPAY ==
--- NOTE | ~2024-01-14 | US_ITS ---
EXAMINATION: US VENOUS ULTRASOUND WITH DOPPLER LOWER EXTREMITY, LEFT CLINICAL INFORMATION: Pain of left calf. COMPARISON: 05/01/2019 TECHNIQUE: Ultrasound of the deep veins is performed from the hip to the calf with compression sonography and color and pulse Doppler assessment. Spectral analysis with color-flow imaging is performed. FINDINGS: The common femoral vein is compressible and exhibits a normal phasic waveform; this suggests that the iliac veins are widely patent above. Within the proximal thigh, the visualized profunda femoris vein is normal. The examined greater saphenous vein and saphenofemoral junction are normal. Superficial femoral vein is patent in the proximal, mid and distal thigh. Popliteal vein is normal to the level of the trifurcation. On compression ramsey scale and color Doppler images, the visualized posterior tibial and peroneal veins of the calf are patent. No evidence of Sterling's cyst. US/US venous duplex LE LT IMPRESSION: No evidence of deep vein thrombosis in the left lower extremity.
== END 2024-01-14 14:54 | disposition home or self-care (01) ==
LOC: HO.US 14:53
PROVIDERS: PCP Internal Medicine; Visit Provider Internal Medicine
DX: M79.662 Pain in left lower leg (principal)
CPT/HCPCS: 93971

== ENCOUNTER 2024-01-24 18:51 | Emergency (ER) | payer OTHER, SELFPAY ==
--- NOTE | ~2024-01-24 | CT_ITS ---
EXAMINATION: CT HEAD WITHOUT CONTRAST CLINICAL INFORMATION: Sharp pain in the right side of head. COMPARISON: Brain MRI from 01/31/2022. TECHNIQUE: Contiguous axial imaging was performed from the skull base to vertex without intravenous administration of contrast. This CT examination was performed using dose optimization techniques as appropriate, variously including the following: *Automated exposure control. *Adjustment of mA and/or kV according to patient size (this includes techniques or standardized protocols for targeted exams where dose is matched to indication/reason for exam; i.e. extremities or head). *Use of iterative reconstruction technique. DLP: 631 mGy-cm FINDINGS: There is no evidence of acute intracranial hemorrhage or edematous territorial infarction. Carnes-white matter differentiation is preserved. Scattered and partially confluent hypoattenuation in the periventricular and deep white matter are consistent with moderate microangiopathy. Proportional prominence of the ventricles and sulcal spaces without evidence of obstructive hydrocephalus. No abnormal mass effect or midline shift. No extra-axial fluid collections. Calcific atherosclerotic disease of the intracranial internal carotid and vertebral arteries. No hyperdense vessel sign. No acute soft tissue or osseous abnormalities. Mild mucosal thickening of the paranasal sinuses. The mastoid air cells and middle ear cavities are clear. Bilateral lens extractions. CT/CT head/brain wo IV con IMPRESSION: 1. No evidence of acute intracranial hemorrhage or edematous territorial infarction. 2. Moderate underlying microangiopathy and generalized cerebral volume loss. Electronically signed by: Jay Bob DO 01/24/2024 09:03 PM EDT
[2024-01-24 19:09] VITALS: BP 131/62; PULSE 73; RESP 18; TEMP 36.3; O2SAT 100
--- NOTE | 2024-01-24 19:13 | ED.GENADULT ---
HPI - General Adult General Chief complaint: General Medical Stated complaint: needs CT per [facility] Time Seen by Provider: 01/24/24 22:23 Source: patient, family (Patient's son assisting as business intelligence developer), RN notes reviewed and old records reviewed Mode of arrival: ambulatory Limitations: no limitations History of Present Illness ED Provider: Mima HPI narrative: 79-year-old female with past medical history significant for anemia, history of PE on Eliquis, fibromyalgia, osteoporosis, vertigo presents for evaluation of a headache. Patient reports on and off right-sided headache for the last 3 days She reports that she currently has no symptoms. She states that when she gets the headaches ?my whole body feels weak. ? She occasionally has jaw pain as well but denies any chest pain Denies any fevers, chills, cough, shortness of breath She went to urgent care prior to coming here, had a negative COVID test but was sent to the ER for further evaluation Denies visual changes, nausea vomiting, lightheadedness, dizziness She denies any history of migraine headaches Related Data Home Medications ?Medication ?Instructions ?Recorded ?Confirmed albuterol sulfate 90 mcg/actuation 2 puff inhalation Q4H PRN Asthma 03/11/20 12/20/23 aerosol inhaler (ProAir HFA) enalapril maleate 20 mg tablet 20 mg PO BID 03/11/20 12/20/23 temazepam 30 mg capsule 30 mg PO BEDTIME PRN Insomnia 03/11/20 12/20/23 pantoprazole 40 mg tablet,delayed 40 mg PO DAILY@0630 09/01/20 12/20/23 release duloxetine 60 mg capsule,delayed 60 mg PO DAILY 04/14/21 12/20/23 release lorazepam 0.5 mg tablet 0.5 mg PO DAILY PRN Anxiety 04/14/21 12/20/23 metoprolol succinate 50 mg 50 mg PO DAILY 07/14/21 12/20/23 tablet,extended release 24 hr multivitamin 1 tab PO DAILY 08/29/21 12/20/23 diclofenac sodium 1 % topical gel 4 g topical BID 01/05/22 12/20/23 calcium carbonate (Calcium 600) 600 mg PO DAILY 01/31/22 12/20/23 acetaminophen 500 mg capsule 500 mg PO DAILY 11/09/22 12/20/23 (Mapap (acetaminophen)) denosumab 60 mg/mL subcutaneous 60 mg subcut [id number] 12/20/22 12/20/23 syringe (Prolia) clotrimazole-betamethasone 1 1 appl topical DAILY 02/02/23 12/20/23 %-0.05 % topical cream hydrocortisone 1 % topical cream 1 appl topical DAILY 02/02/23 12/20/23 with perineal applicator hydrochlorothiazide 12.5 mg tablet 12.5 mg PO DAILY 02/14/23 12/20/23 atorvastatin 20 mg tablet 20 mg PO DAILY 10/31/23 12/20/23 Previous Rx's ?Medication ?Instructions ?Recorded meclizine 25 mg tablet 25 mg PO Q6H PRN dizziness #10 tabs 02/06/22 ondansetron HCl 4 mg tablet 4 mg PO Q8H PRN nausea and 02/06/22 vomiting 4 days #10 tabs sennosides 8.6 mg tablet (Natural 8.6 mg PO BEDTIME constipation #90 07/13/22 Senna Laxative) tabs cholecalciferol (vitamin D3) 50 50 mcg PO DAILY #90 caps 11/13/22 mcg (2,000 unit) capsule prednisone 5 mg tablet See Rx Instructions PO .COMPLEX 11/21/23 #42 tabs apixaban 5 mg tablet (Eliquis) 5 mg PO BID #60 tabs 12/20/23 cyanocobalamin (vitamin B-12) 1,000 mcg sublingual DAILY #90 ea 12/20/23 1,000 mcg sublingual lozenge leflunomide 20 mg tablet 20 mg PO DAILY #90 tabs 01/10/24 spvoxqdjcc-dqwakhyvypvax-xdptjwwd 1 cap PO Q6H PRN headache #14 caps 01/25/24 50 mg-300 mg-40 mg capsule (Fioricet) Allergies Allergy/AdvReac Type Severity Reaction Status Date / Time Iodinated Contrast Media Allergy Intermediate SWELLING, Verified 01/24/24 19:09 [CONTRAST, IV] ITCHINESS, RASH Penicillins [PENICILLINS] Allergy Intermediate ITCHINESS, Verified 01/24/24 19:09 RASH, SWELLING latex Allergy Hives Verified 01/24/24 19:09 Sulfa (Sulfonamide Allergy Unknown Verified 01/24/24 19:09 Antibiotics) zoledronic acid AdvReac Joint Pain Verified 01/24/24 19:09 [From Reclast] Review of Systems Constitutional: Constitutional: Denies body ache(s), Denies chills, Denies fever(s), Denies frequent falls and Reports headache(s) Eyes: Eyes: Denies blurry vision, Denies exophthalmos and Denies change in vision ENT: Denies vertigo, Denies dizziness and Reports headache(s) Cardiovascular: Cardiovascular: Denies chest pain, Reports radiating jaw, neck or arm pain and Denies dyspnea Respiratory: Respiratory: Denies cough and Denies dyspnea Gastrointestinal: Gastrointestinal: Denies abdominal pain, Denies nausea and Denies vomiting Musculoskeletal: Musculoskeletal: Denies back pain Integumentary/Breasts: Skin/Breast: Denies rash Neurologic: Denies vertigo, Denies dizziness, Denies frequent falls and Reports headache(s) [facility] Past Medical History Medical History (Updated 01/26/24 @ 00:01 by Aldair Teague) Right ankle swelling Long-term use of immunosuppressant medication Dry skin dermatitis Leg edema Surgical History History of cholecystectomy History of appendectomy History of total abdominal hysterectomy and bilateral salpingo-oophorectomy History of bariatric surgery History of colonoscopy Family History Family History Father Asthma Mother Rheumatoid arthritis Cardiovascular disease Social History Social History Household Members: Family Housing: House Are you a primary child care center administrator to a significant other at home: No Do you presently have visiting nurse or other home services: Yes (PT 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 a [employer]) Alcohol intake: never Patient Tobacco Use Status: Never used Tobacco Smoked in Last 30 Days: No Use of substances other than those prescribed or required for medical reasons: No Advance Directives: No Advance Directives Information Provided: No Advance Directives Date on File: 03/17/20 Do you have a plan to hurt others: No Plan service: No Current occupational status: disabled Physical Exam ED Vital Signs: Vital Signs - 24 hr 01/24/24 19:09 01/24/24 20:31 01/24/24 22:17 Temperature 97.3 F 98.5 F 98.2 F Pulse Rate 73 74 76 Respiratory Rate 18 18 19 Blood Pressure 131/62 119/62 126/79 Pulse Oximetry 100 100 99 Oxygen Delivery Method Room Air Room Air Room Air BMI result Body Mass Index 30.0 Const General: healthy appearing, comfortable, no acute distress, alert and awake Nutritional Appearance: well nourished Orientation/consciousness: patient oriented x3 HENMT Head: Yes normocephalic and Yes atraumatic Eyes Eyelids: Yes eyelids normal Conjunctivae: conjunctivae normal Sclerae: sclerae normal Corneas: corneas normal Pupils: Equal, round and reactive pupils present EOM: EOMs intact bilaterally Neck Neck: Yes full ROM Resp Effort & Inspection: normal respiratory effort, able to speak in complete sentences and not labored Cardio Rate: regular rate Rhythm: regular rhythm Skin General skin exam: elasticity normal Neuro General: patient oriented x3 Cranial nerves: Yes CN's II-XII intact bilaterally, Yes Equal, round and reactive pupils present and Yes Bilaterally intact EOM present Cognition (Neuro): normal cognition Extrem Other: Moving all extremities well without any obvious deformities Course Course Course Narrative: This is a Rapid Medical Examination (RME) performed by Josette Mercer PA-C in triage. Full HPI, ROS, assessment and treatment plan per primary provider in the Main ED. 79 yo female hx of RA here for eval of right sided head pain x3 days. Reports pain is and shoots along the right side of her head. Admits to associated generalized weakness throughout her body, nausea and dizziness. Denies injury/ trauma to head. denies difficulty walking or vision changes. + AOX3. no focal neuro deficits. perrla. ambulating with steady gait. Plan: labs, ekg, ct head Medications Administered Discontinued Medications Generic Name Dose Route Start Last Admin Trade Name Ariq PRN Reason Stop Dose Admin Acetaminophen 975 mg 01/24/24 22:59 01/24/24 23:09 Acetaminophen 325 Mg Tablet PO 01/24/24 23:00 975 mg ONCE ONE Administration Medical Decision Making Medical Decision Making [facility] Narrative: 79-year-old female presents for evaluation of intermittent headaches for the last 3 days. She is anticoagulated on Eliquis but denies any trauma. She was sent by urgent care for a CT scan of the brain which was ordered. This does not show any acute findings. The patient is neurologically intact with an NIH stroke score of 0. Her physical exam is nonfocal. She has no objective weakness on exam. Given the patient's jaw pain with occasional weakness a cardiac workup was ordered. Her EKG did show subtle T-wave changes with isoelectric T-waves in the lateral leads when compared to normal T-waves from April of last year. Therefore a troponin was ordered. The troponin was negative which essentially rules out ACS as the patient has had her symptoms for 3 days. Her headache was treated with Tylenol. An ESR level was ordered which is above normal but not indicative of temporal arteritis. She may follow up with her primary doctor Differential Diagnosis Differential Diagnoses: The differential diagnosis associated with the presentation includes Acute headache Tension headache Cluster headache Migraine headache Viral syndrome Lab Data MDM Lab Attestation statement: I reviewed the patient's lab results. No leukocytosis or anemia. Normal platelet count. No electrolyte abnormalities. Renal function at baseline. Patient has diabetes, her random glucose is 186 but no evidence of DKA. She has mild inflammatory marker 01/24/24 19:43 01/24/24 19:43 Labs: Lab Results 01/24/24 01/24/24 Range/Units 19:43 23:08 WBC 6.0 (4.8-10.8) X10*3/uL RBC 4.70 (4.20-5.50) X10*6/uL Hgb 12.0 (12.0-16.0) g/dl Hct 40.0 (37.0-47.0) % MCV 85.1 (80.0-98.0) fL MCH 25.5 L (27.0-33.0) pg MCHC 30.0 L (31.0-35.0) g/dl RDW 16.7 H (11.0-16.0) % Plt Count 224 (160-400) X10*3/uL MPV 10.1 (9.4-12.3) fL Immature Gran % (Auto) 0.3 (0.0-0.4) % Neut % (Auto) 54.5 (45-73) % Lymph % (Auto) 33.4 (20-40) % Haywood % (Auto) 8.6 (2-11) % Eos % (Auto) 2.7 (0-4) % Baso % (Auto) 0.5 (0-2) % Lymph # (Auto) 2.0 (1.2-4.9) X10*3/uL Haywood # (Auto) 0.5 (0.1-1.2) X10*3/uL Eos # (Auto) 0.2 (0.0-0.4) X10*3/uL Baso # (Auto) 0.0 (0.0-0.2) X10*3/uL Abs Immat Gran (auto) 0.02 (0.00-0.03) X10*3/uL Absolute Neuts (auto) 3.2 (2.0-8.3) x10*3/uL Absolute Nucleated RBC 0.000 (0.0-0.012) X10*3/uL Nucleated RBC % (auto) 0.0 (0.0-0.2) /100WBC ESR 29 H (0-20) MM/HR Sodium 143 (135-145) mmol/L Potassium 4.3 (3.3-5.1) mmol/L Chloride 107 (96-108) mmol/L Carbon Dioxide 28 (22-29) mmol/L Anion Gap 12 (12-20) BUN 17 H (9-16) mg/dL Creatinine 0.96 (0.5-1.4) mg/dL Estim Creat Clear Calc 46.6 Estimated GFR 56 Random Glucose 186 H (60-115) mg/dL Calcium 9.6 (8.4-10.2) mg/dL Magnesium 2.4 (1.6-2.6) mg/dL Total Bilirubin 0.4 (0.0-1.0) mg/dL AST 20 (5-31) U/L ALT 17 (0-31) U/L Alkaline Phosphatase 83 (39-117) U/L Troponin I High Sens 3.6 (<3.5-17.0) ng/L C-Reactive Protein 1.60 H (< or = 0.50) mg/dL Total Protein 7.0 (6.5-8.0) g/dL Albumin 3.7 (3.5-5.0) g/dL Hold Red Top See Note Independent Interpretation I performed an independent interpretation of an: CT Scan (Agree with Radiology interpretation) Radiology Impression Discussion of test interpretation with radiology: I have reviewed the radiologist's reading. Radiologist Impression: CT/CT head/brain wo IV con IMPRESSION: 1. No evidence of acute intracranial hemorrhage or edematous territorial infarction. 2. Moderate underlying microangiopathy and generalized cerebral volume loss. Discharge Plan Discharge Clinical Impression: Acute headache Patient Disposition: Home, Self-Care Instructions: Acute Headache (ED) Additional Instructions: Your workup in the ER today was reassuring. Your CT scan did not show any significant abnormality Your blood work was also reassuring I recommend that you follow-up with your primary doctor. In the meantime, you may use Fioricet as needed for further headaches This medication contains Tylenol, do not take additional Tylenol with it Prescriptions: New [id number]-tyhxfivioyuta-[id number] [Fioricet] 50-300-40 mg capsule 1 cap PO Q6H PRN (Reason: headache) Qty: 14 0RF No Action cholecalciferol (vitamin D3) 50 mcg (2,000 unit) capsule 50 mcg PO DAILY Qty: 90 1RF prednisone 5 mg tablet See Rx Instructions PO .COMPLEX Qty: 42 0RF Rx Instructions: Take 2 tabs daily for 2 weeks then remain on 1 tab daily leflunomide 20 mg tablet 20 mg PO DAILY Qty: 90 0RF Eliquis 5 mg Tablet 5 mg PO BID Qty: 60 6RF cyanocobalamin (vitamin B-12) 1,000 mcg Lozenge 1,000 mcg SUBLINGUAL DAILY Qty: 90 3RF calcium carbonate [Calcium 600] 600 mg calcium (1,500 mg) Tablet 600 mg PO DAILY meclizine 25 mg Tablet 25 mg PO Q6H PRN (Reason: dizziness) Qty: 10 0RF ondansetron HCl 4 mg tablet 4 mg PO Q8H PRN (Reason: nausea and vomiting) 4 Days Qty: 10 0RF albuterol sulfate [ProAir HFA] 90 mcg/actuation HFA aerosol inhaler 2 puff inhalation Q4H PRN (Reason: Asthma) enalapril maleate 20 mg tablet 20 mg PO BID temazepam 30 mg capsule 30 mg PO BEDTIME PRN (Reason: Insomnia) pantoprazole 40 mg tablet,delayed release (DR/EC) 40 mg PO DAILY@0630 metoprolol succinate 50 mg tablet extended release 24 hr 50 mg PO DAILY multivitamin Tablet 1 tab PO DAILY duloxetine 60 mg capsule,delayed release(DR/EC) 60 mg PO DAILY lorazepam 0.5 mg tablet 0.5 mg PO DAILY PRN (Reason: Anxiety) diclofenac sodium 1 % gel 4 g topical BID sennosides [Natural Senna Laxative] 8.6 mg tablet 8.6 mg PO BEDTIME Qty: 90 3RF acetaminophen [Mapap (acetaminophen)] 500 mg capsule 500 mg PO DAILY clotrimazole-betamethasone 1-0.05 % cream 1 appl topical DAILY hydrocortisone 1 % cream with perineal applicator 1 appl topical DAILY atorvastatin 20 mg tablet 20 mg PO DAILY Prolia 60 mg/mL syringe 60 mg subcut [id number] hydrochlorothiazide 12.5 mg tablet 12.5 mg PO DAILY Interventions: ED Discharge Assessment Last Done: 01/25/24 02:23 Discharge Date/Time: 01/25/24 01:10 Print Language: Italian
--- NOTE | 2024-01-24 19:16 | ECG_ITS ---
Test Reason : Anticoagulation problems Blood Pressure : / mmHG Vent. Rate : 076 BPM Atrial Rate : 076 BPM P-R Int : 134 ms QRS Dur : 066 ms QT Int : 402 ms P-R-T Axes : 002 -14 006 degrees QTc Int : 452 ms Normal sinus rhythm Nonspecific T wave abnormality Abnormal ECG When compared with ECG of 15-MAY-2023 18:50, Nonspecific T wave abnormality now evident in Lateral leads Referred By: Winifred Mercer Electronically Signed By:VANESSA WAYNE
[2024-01-24 19:55] LABS: MANUAL DIFF FLAG NO
[2024-01-24 19:59] LABS: Basophils Percent Auto 0.5 % (0-2); Eosinophils Absolute Auto 0.2 X10*3/uL (0.0-0.4); Eosinophils Percent Auto 2.7 % (0-4); Imm Gran Abs Auto 0.02 X10*3/uL (0.00-0.03); Imm Gran Pct Auto 0.3 % (0.0-0.4); Lymphocytes Percent Auto 33.4 % (20-40); Mean Corpuscular Hemoglobin 25.5 pg (27.0-33.0); Mean Corpuscular Volume 85.1 fL (80.0-98.0); Mean Platelet Volume 10.1 fL (9.4-12.3); Monocytes Absolute Auto 0.5 X10*3/uL (0.1-1.2); Monocytes Percent Auto 8.6 % (2-11); Neutrophils Absolute Auto 3.2 x10*3/uL (2.0-8.3); Neutrophils Percent Auto 54.5 % (45-73); Platelet Count 224 X10*3/uL (160-400); Red Cell Distribution Width 16.7 % (11.0-16.0)
[2024-01-24 20:11] LABS: Alanine Aminotransferase 17 U/L (0-31); Albumin Level 3.7 g/dL (3.5-5.0); Alkaline Phosphatase 83 U/L (39-117); Anion Gap 12 (12-20); Aspartate Amino Transferase 20 U/L (5-31); Bilirubin Total 0.4 mg/dL (0.0-1.0); Blood Urea Nitrogen 17 mg/dL (9-16); Calcium 9.6 mg/dL (8.4-10.2); Carbon Dioxide 28 mmol/L (22-29); Chloride 107 mmol/L (96-108); Creatinine Clr Calc Pharmacy 46.6; Estimated Glomerular Filt Rate 56; Glucose Random 186 mg/dL (60-115); Magnesium 2.4 mg/dL (1.6-2.6); Potassium 4.3 mmol/L (3.3-5.1); Sodium 143 mmol/L (135-145)
[2024-01-24 20:31] VITALS: BP 119/62; PULSE 74; RESP 18; TEMP 36.9; O2SAT 100
[2024-01-24 22:17] VITALS: BP 126/79; PULSE 76; RESP 19; TEMP 36.8; O2SAT 99
--- NOTE | 2024-01-24 22:22 | PC.NURSE ---
Patient continues to rest quietly on stretcher at this time, no complaints of pain.
[2024-01-24 22:36] LABS: Erythrocyte Sedimentation Rate 29 MM/HR (0-20)
[2024-01-24] MEDS: Acetaminophen 325 MG TABLET 975 MG PO (23:09)
[2024-01-24 23:53] LABS: Troponin-I High Sensitivity 3.6 ng/L (<3.5-17.0)
[2024-01-25 02:23] VITALS: BP 142/62; PULSE 62; RESP 20; TEMP 36.6; O2SAT 98
== END 2024-01-25 01:10 | disposition home or self-care (01) ==
PROVIDERS: Physician Assistant; Physician Assistant Medical; Emergency Provider Student in an Organized Health Care Education/Training Program; PCP Internal Medicine
DX: R51.9 Headache, unspecified (principal); R94.31 Abnormal electrocardiogram [ECG] [EKG]; R42 Dizziness and giddiness; Z79.899 Other long term (current) drug therapy
CPT/HCPCS: 36415; 70450; 80053; 83735; 84484; 85025; 85652; 86140; 93005; 99284

== ENCOUNTER 2024-02-06 02:10 | Observation (INO) | payer OTHER, SELFPAY ==
[2024-02-06] VITALS (8 sets, daily range): BP systolic 119–167; BP diastolic 62–87; PULSE 63–83; RESP 15–18; TEMP 36.1–36.8; O2SAT 97–100; BMI 32.0; BMI 31.7
--- NOTE | 2024-02-06 | ECG_ITS ---
Test Reason : ALLERGIC REACTION Blood Pressure : / mmHG Vent. Rate : 064 BPM Atrial Rate : 064 BPM P-R Int : 132 ms QRS Dur : 070 ms QT Int : 448 ms P-R-T Axes : 000 -25 -06 degrees QTc Int : 462 ms Normal sinus rhythm Low voltage QRS Inferior infarct , age undetermined Abnormal ECG When compared with ECG of 24-JAN-2024 19:42, Nonspecific T wave abnormality no longer evident in Lateral leads Referred By: Generic ED Physician Electronically Signed By:VANESSA WAYNE
--- NOTE | 2024-02-06 02:49 | ED.GENADULT ---
HPI - General Adult General Chief complaint: Allergic Reaction Stated complaint: facial swelling, A& Ox4 Time Seen by Provider: 02/06/24 02:45 Source: patient, EMS and motor vehicle parts interpreter Mode of arrival: EMS Limitations: no limitations History of Present Illness ED Provider: DR. Porras HPI narrative: 79-year-old speaking female came in by ambulance after had a sudden onset of lip swelling and periorbital swelling started 2 hours ago. Patient declined any change in for daily routine, did not eat any new food recently, patient has been taking enalapril for blood pressure control for the past 2 years never had any reaction to the medicine. Complaining of no shortness of breath, no difficulty swallowing. No rash or itching. Related Data Home Medications ?Medication ?Instructions ?Recorded ?Confirmed albuterol sulfate 90 mcg/actuation 2 puff inhalation Q4H PRN Asthma 03/11/20 12/20/23 aerosol inhaler (ProAir HFA) enalapril maleate 20 mg tablet 20 mg PO BID 03/11/20 12/20/23 temazepam 30 mg capsule 30 mg PO BEDTIME PRN Insomnia 03/11/20 12/20/23 pantoprazole 40 mg tablet,delayed 40 mg PO DAILY@0630 09/01/20 12/20/23 release duloxetine 60 mg capsule,delayed 60 mg PO DAILY 04/14/21 12/20/23 release lorazepam 0.5 mg tablet 0.5 mg PO DAILY PRN Anxiety 04/14/21 12/20/23 metoprolol succinate 50 mg 50 mg PO DAILY 07/14/21 12/20/23 tablet,extended release 24 hr multivitamin 1 tab PO DAILY 08/29/21 12/20/23 diclofenac sodium 1 % topical gel 4 g topical BID 01/05/22 12/20/23 calcium carbonate (Calcium 600) 600 mg PO DAILY 01/31/22 12/20/23 acetaminophen 500 mg capsule 500 mg PO DAILY 11/09/22 12/20/23 (Mapap (acetaminophen)) denosumab 60 mg/mL subcutaneous 60 mg subcut Q1EAECLO 12/20/22 12/20/23 syringe (Prolia) clotrimazole-betamethasone 1 1 appl topical DAILY 02/02/23 12/20/23 %-0.05 % topical cream hydrocortisone 1 % topical cream 1 appl topical DAILY 02/02/23 12/20/23 with perineal applicator hydrochlorothiazide 12.5 mg tablet 12.5 mg PO DAILY 02/14/23 12/20/23 atorvastatin 20 mg tablet 20 mg PO DAILY 10/31/23 12/20/23 Previous Rx's ?Medication ?Instructions ?Recorded meclizine 25 mg tablet 25 mg PO Q6H PRN dizziness #10 tabs 02/06/22 ondansetron HCl 4 mg tablet 4 mg PO Q8H PRN nausea and 02/06/22 vomiting 4 days #10 tabs sennosides 8.6 mg tablet (Natural 8.6 mg PO BEDTIME constipation #90 07/13/22 Senna Laxative) tabs cholecalciferol (vitamin D3) 50 50 mcg PO DAILY #90 caps 11/13/22 mcg (2,000 unit) capsule prednisone 5 mg tablet See Rx Instructions PO .COMPLEX 11/21/23 #42 tabs apixaban 5 mg tablet (Eliquis) 5 mg PO BID #60 tabs 12/20/23 cyanocobalamin (vitamin B-12) 1,000 mcg sublingual DAILY #90 ea 12/20/23 1,000 mcg sublingual lozenge leflunomide 20 mg tablet 20 mg PO DAILY #90 tabs 01/10/24 uyutubdhyx-floxhycwlrxzl-saboioet 1 cap PO Q6H PRN headache #14 caps 01/25/24 50 mg-300 mg-40 mg capsule (Fioricet) Allergies Allergy/AdvReac Type Severity Reaction Status Date / Time Iodinated Contrast Media Allergy Intermediate SWELLING, Verified 02/06/24 02:31 [CONTRAST, IV] ITCHINESS, RASH Penicillins [PENICILLINS] Allergy Intermediate ITCHINESS, Verified 02/06/24 02:31 RASH, SWELLING latex Allergy Hives Verified 02/06/24 02:31 Sulfa (Sulfonamide Allergy Unknown Verified 02/06/24 02:31 Antibiotics) zoledronic acid AdvReac Joint Pain Verified 02/06/24 02:31 [From Reclast] Review of Systems Review of Systems: All other systems are reviewed and are negative Constitutional: Reports as per HPI and Reports no additional constitutional complaints Eyes: Reports as per HPI and Reports no additional eye complaints Reports system reviewed and no additional complaints, except as documented Cardiovascular: Reports as per HPI and Reports no additional cardiovascular complaints Respiratory: Reports as per HPI and Reports no additional respiratory complaints Gastrointestinal: Reports as per HPI and Reports no additional gastrointestinal complaints Genitourinary: Reports no additional female genitourinary complaints Musculoskeletal: Reports no additional musculoskeletal complaints Skin/Breast: Reports system reviewed and no additional complaints, except as docu Psychiatric: Reports no additional psychiatric complaints Endocrine: Reports no additional endocrine complaints Hematologic/Lymphatic: Reports no additional hematologic/lymphatic complaints Allergic/Immunologic: Reports no additional allergic/immunologic complaints Reports system reviewed and no additional complaints, except as documented and Reports Abnormal speech present [facility] Past Medical History Medical History Right ankle swelling Long-term use of immunosuppressant medication Dry skin dermatitis Leg edema Surgical History History of cholecystectomy History of appendectomy History of total abdominal hysterectomy and bilateral salpingo-oophorectomy History of bariatric surgery History of colonoscopy Family History Family History Father Asthma Mother Rheumatoid arthritis Cardiovascular disease Social History Social History Household Members: Family Housing: House Are you a primary care process manager to a significant other at home: No Do you presently have visiting nurse or other home services: Yes (PT 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 a NIGHT MONITOR) Alcohol intake: never Patient Tobacco Use Status: Never used Tobacco Advance Directives: Yes Advance Directives on File: Yes Advance Directives Date on File: 02/06/24 Do you have a plan to hurt others: No Plan service: No Current occupational status: disabled Physical Exam ED Vital Signs: Vital Signs - 24 hr 02/06/24 02:28 Temperature 97.8 F Pulse Rate 74 Respiratory Rate 16 Blood Pressure 141/87 H Pulse Oximetry 100 Oxygen Delivery Method Room Air BMI result Body Mass Index 32.0 Vital signs have been reviewed and appear to be correct. Blood pressure elevated. Heart rate normal. Respiratory rate normal. Temperature normal. Oxygen saturation normal. Appearance: Alert. Oriented X3. No acute distress. Head: Normal external exam. Normocephalic. Atraumatic. No [place] signs noted. No raccoon eyes noted Eyes: Periorbital swelling, significant swelling of labs, patent airway, uvula is midline with no swelling, no stridor. ENT: TM's Normal. Pharynx normal. Uvula midline. Moist mucous membranes. No trismus noted. No drooling noted. No muffled voice noted. Neck: Normal inspection. Neck supple. FROM. No adenopathy. Thyroid Normal. No meningeal signs. No neck mass noted. CVS: Normal heart rate and rhythm. Heart sound normal. No murmurs noted. Pulses normal throughout. Respiratory: No respiratory distress. Painless inspiration. Breath sounds normal. No wheezes/rales/rhonchi noted. Chest nontender. No accessory muscle usage noted or decreased air movement noted. Abdomen: Soft and nontender. Bowel sounds normal in all 4 quadrants. No distention noted. No organomegaly noted. No visible injury noted. Back: No CVA tenderness. Full range of motion noted. Skin: Skin warm and dry. Normal skin color. Normal skin turgor. No rashes/lesions/lacerations noted. Extremities: No lower extremity edema. Extremities exhibit normal range of motion. Extremities nontender. Neuro: Oriented X 3. Cranial nerve exam: II-XII are grossly intact No motor deficit. No sensory deficit. Reflexes normal. Course Reevaluation(s) Reevaluation #1: 79-year-old female with facial swelling and angioedema likely secondary to enalapril. Patient's symptoms is improving with Solu-Medrol, fluids, Benadryl, Pepcid. Will admit the patient for observation and adjust blood pressure management. Time: 04:00 Medications Administered Discontinued Medications Generic Name Dose Route Start Last Admin Trade Name Deanne PRN Reason Stop Dose Admin Diphenhydramine HCl 25 mg 02/06/24 02:45 02/06/24 02:59 Diphenhydramine Hcl 50 Mg/Ml Vial IVPUSH 02/06/24 02:46 25 mg ONCE ONE Administration Famotidine 20 mg 02/06/24 02:45 02/06/24 02:59 Famotidine/Pf 20 Mg/2 Ml Vial IVPUSH 02/06/24 02:46 20 mg ONCE ONE Administration Sodium Chloride 1,000 mls @ 999 mls/hr 02/06/24 02:45 02/06/24 03:03 Ns IV 02/06/24 03:45 999 mls/hr .Q1H1M ONE Administration Methylprednisolone Sodium Succinate 125 mg 02/06/24 02:45 02/06/24 02:59 Methylprednisolone Sod Succ 125 Mg/2 Ml Vial IVPUSH 02/06/24 02:46 125 mg ONCE ONE Administration Medical Decision Making Differential Diagnosis Differential Diagnoses: The differential diagnosis associated with the presentation includes ( Acute allergic reaction, angioedema, airway compromise, electrolyte derangement, severe anemia.) Admission/Observation Consideration of admission/observation: Escalation of care including admission/observation considered Consult Healthcare Provider Management of the patient was discussed with: Hospitalist ( Dr. Wakefield) Lab Data MDM Lab Attestation statement: I reviewed the patient's lab results. 02/06/24 02:46 02/06/24 02:46 Labs: Lab Results 02/06/24 Range/Units 02:46 WBC 5.2 (4.8-10.8) X10*3/uL RBC 4.24 (4.20-5.50) X10*6/uL Hgb 10.9 L (12.0-16.0) g/dl Hct 35.5 L (37.0-47.0) % MCV 83.7 (80.0-98.0) fL MCH 25.7 L (27.0-33.0) pg MCHC 30.7 L (31.0-35.0) g/dl RDW 16.7 H (11.0-16.0) % Plt Count 242 (160-400) X10*3/uL MPV 9.6 (9.4-12.3) fL Immature Gran % (Auto) 0.4 (0.0-0.4) % Neut % (Auto) 39.3 L (45-73) % Lymph % (Auto) 46.0 H (20-40) % [place] % (Auto) 11.2 H (2-11) % Eos % (Auto) 2.3 (0-4) % Baso % (Auto) 0.8 (0-2) % Lymph # (Auto) 2.4 (1.2-4.9) X10*3/uL [place] # (Auto) 0.6 (0.1-1.2) X10*3/uL Eos # (Auto) 0.1 (0.0-0.4) X10*3/uL Baso # (Auto) 0.0 (0.0-0.2) X10*3/uL Abs Immat Gran (auto) 0.02 (0.00-0.03) X10*3/uL Absolute Neuts (auto) 2.1 (2.0-8.3) x10*3/uL Absolute Nucleated RBC 0.000 (0.0-0.012) X10*3/uL Nucleated RBC % (auto) 0.0 (0.0-0.2) /100WBC Troponin I High Sens < 2.7 (<3.5-17.0) ng/L Independent Interpretation I performed an independent interpretation of an: EKG ( normal sinus rhythm at 64 beats per minute, normal intervals, no acute ST-T changes.) Discharge Plan Discharge Clinical Impression: Angioedema Patient Disposition: Admitted As Inpatient Print Language: Upper Sorbian
[2024-02-06 02:50] LABS: Basophils Percent Auto 0.8 % (0-2); Eosinophils Absolute Auto 0.1 X10*3/uL (0.0-0.4); Eosinophils Percent Auto 2.3 % (0-4); Hematocrit 35.5 % (37.0-47.0); Hemoglobin 10.9 g/dl (12.0-16.0); Imm Gran Abs Auto 0.02 X10*3/uL (0.00-0.03); Imm Gran Pct Auto 0.4 % (0.0-0.4); Lymphocytes Absolute Auto 2.4 X10*3/uL (1.2-4.9); MANUAL DIFF FLAG NO; Mean Corpuscular HGB Conc 30.7 g/dl (31.0-35.0); Mean Corpuscular Hemoglobin 25.7 pg (27.0-33.0); Mean Corpuscular Volume 83.7 fL (80.0-98.0); Mean Platelet Volume 9.6 fL (9.4-12.3); Monocytes Absolute Auto 0.6 X10*3/uL (0.1-1.2); Monocytes Percent Auto 11.2 % (2-11); Neutrophils Absolute Auto 2.1 x10*3/uL (2.0-8.3); Neutrophils Percent Auto 39.3 % (45-73); Platelet Count 242 X10*3/uL (160-400); Red Blood Count 4.24 X10*6/uL (4.20-5.50); Red Cell Distribution Width 16.7 % (11.0-16.0); White Blood Count 5.2 X10*3/uL (4.8-10.8)
--- NOTE | 2024-02-06 02:53 | PC.NURSE ---
Pt takes enalapril po daily
[2024-02-06] MEDS: diphenhydrAMINE HCL 50 MG/ML VIAL 25 MG IVPUSH (02:59)
[2024-02-06] MEDS: Famotidine/PF 20 MG/2 ML VIAL IVPUSH ×3 (02:59→21:01)
[2024-02-06] MEDS: methylPREDNISolone Sod Succ 125 MG/2 ML VIAL IVPUSH (02:59)
[2024-02-06] MEDS: 0.9 % Sodium Chloride 1,000 ML 999 ML IV (03:03)
[2024-02-06 03:10] LABS: Troponin-I High Sensitivity < 2.7 ng/L (<3.5-17.0)
[2024-02-06 04:02] LABS: Alanine Aminotransferase 13 U/L (0-31); Albumin Level 3.6 g/dL (3.5-5.0); Alkaline Phosphatase 95 U/L (39-117); Anion Gap 12 (12-20); Aspartate Amino Transferase 22 U/L (5-31); Bilirubin Direct 0.1 mg/dL (0.0-0.5); Bilirubin Total 0.4 mg/dL (0.0-1.0); Blood Urea Nitrogen 10 mg/dL (9-16); Calcium 9.3 mg/dL (8.4-10.2); Carbon Dioxide 28 mmol/L (22-29); Chloride 106 mmol/L (96-108); Creatinine Clr Calc Pharmacy 48.4; Estimated Glomerular Filt Rate 59; Glucose Random 114 mg/dL (60-115); Lipase 27 U/L (8-78); Potassium 3.9 mmol/L (3.3-5.1); Sodium 142 mmol/L (135-145); Total Protein 6.8 g/dL (6.5-8.0)
--- NOTE | 2024-02-06 09:27 | PM.IMHP ---
History of Present Illness Date of Service: 02/06/24 Chief Complaint: face swelling Patient is a 79-year-old female with a past medical history of hypertension, RA, PE on Eliquis, PVCs, GERD who presents to the emergency room with complaints of face and lip swelling which began on the night prior to admission. The patient reports she went to bed in her usual state of health and woke up with swelling of her face and lips. She reports a history of enalapril use, which he has been on for years. She denies any respiratory distress but does endorse a cough and trouble swallowing for about 3-4 weeks prior to presentation. She denies any fevers or chills. On arrival to the ED, patient was noted to have periorbital and perioral swelling with a patent airway. She was treated with IV Solu-Medrol and IV H2 blockers. She has begun to improve and will be observed in the hospital today. Patient is seen and examined in the emergency room around 09:00 with resourcing consultant services providing translation. Review of Systems Review of Systems: Negative except HPI [facility] Medical History Right ankle swelling Long-term use of immunosuppressant medication Dry skin dermatitis Leg edema Family History Father Asthma Mother Rheumatoid arthritis Cardiovascular disease Surgical History History of cholecystectomy History of appendectomy History of total abdominal hysterectomy and bilateral salpingo-oophorectomy History of bariatric surgery History of colonoscopy Social History Household Members: Family Housing: House Are you a primary acute care clinical nurse specialist to a significant other at home: No Do you presently have visiting nurse or other home services: Yes (PT 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 a CHURCH WORKER) Alcohol intake: never Patient Tobacco Use Status: Never used Tobacco Smoked in Last 30 Days: No Use of substances other than those prescribed or required for medical reasons: No Advance Directives: Yes Advance Directives on File: Yes Advance Directives Date on File: 02/06/24 Do you have a plan to hurt others: No Plan service: No Current occupational status: disabled Meds Allergies Allergy/AdvReac Type Severity Reaction Status Date / Time BERNADETTE Inhibitors Allergy Severe Angioedema Verified 02/06/24 09:26 Iodinated Contrast Media Allergy Intermediate SWELLING, Verified 02/06/24 02:31 [CONTRAST, IV] ITCHINESS, RASH Penicillins [PENICILLINS] Allergy Intermediate ITCHINESS, Verified 02/06/24 02:31 RASH, SWELLING latex Allergy Hives Verified 02/06/24 02:31 Sulfa (Sulfonamide Allergy Unknown Verified 02/06/24 02:31 Antibiotics) zoledronic acid AdvReac Joint Pain Verified 02/06/24 02:31 [From Reclast] Active Medications: Current Medications Acetaminophen (Acetaminophen 325 Mg Tablet) 650 mg PO Q6H PRN PRN Reason: Pain, Mild (Pain Scale 1-3), fever or headache Calcium Carbonate (Calcium Carbonate 750 Mg Tab.Chew) 750 mg PO Q4H PRN PRN Reason: Heartburn Magnesium Hydroxide (Milk Of Magnesia 30 Ml Oral.Susp) 30 ml PO DAILY PRN PRN Reason: Constipation Melatonin (Melatonin 3 Mg Tablet) 6 mg PO BEDTIME PRN PRN Reason: Insomnia Methylprednisolone Sodium Succinate (Methylprednisolone Sod Succ 40 Mg/Ml Vial) 40 mg IVPUSH Q12H YONAS Ondansetron HCl (Ondansetron Hcl 4 Mg/2 Ml Vial) 4 mg IVPUSH Q8H PRN PRN Reason: Nausea and Vomiting Sodium Chloride (0.9 % Sodium Chloride Flush 3 Ml Syringe) 3 ml IVFLUSH QSHIFT YONAS Home Medications ?Medication ?Instructions ?Recorded ?Confirmed ?Last Taken ?Type albuterol sulfate 90 mcg/actuation 2 puff inhalation Q4H PRN Asthma 03/11/20 02/06/24 02/05/24 08:00 History aerosol inhaler (ProAir HFA) enalapril maleate 20 mg tablet 20 mg PO BID 03/11/20 02/06/24 02/05/24 08:00 History temazepam 30 mg capsule 30 mg PO BEDTIME PRN Insomnia 03/11/20 02/06/24 02/05/24 08:00 History duloxetine 60 mg capsule,delayed 60 mg PO DAILY 04/14/21 02/06/24 02/05/24 08:00 History release lorazepam 0.5 mg tablet 0.5 mg PO DAILY PRN Anxiety 04/14/21 02/06/24 02/05/24 08:00 History metoprolol succinate 50 mg 50 mg PO DAILY 07/14/21 02/06/24 02/05/24 08:00 History tablet,extended release 24 hr multivitamin 1 tab PO DAILY 08/29/21 02/06/24 02/05/24 08:00 History acetaminophen 500 mg capsule 500 mg PO DAILY 11/09/22 02/06/24 02/05/24 08:00 History (Mapap (acetaminophen)) hydrochlorothiazide 12.5 mg tablet 12.5 mg PO DAILY 02/14/23 02/06/24 02/05/24 08:00 History atorvastatin 20 mg tablet 20 mg PO DAILY 10/31/23 02/06/24 02/05/24 08:00 History folic acid 1 mg tablet 1 mg PO DAILY 02/06/24 02/06/24 02/05/24 08:00 History Physical Exam Vital Signs and Narrative: Vital Signs: Last Vital Signs Temp 97.7 F 02/06/24 05:19 Pulse 64 02/06/24 05:19 Resp 15 02/06/24 05:19 BP 128/62 02/06/24 05:19 Pulse Ox 97 02/06/24 05:19 O2 Del Method Room Air 02/06/24 05:19 BMI result Body Mass Index 32.0 Const: Other: Constitutional - Awake and Alert, No apparent distress HEENT - PERRLA, EOMI; do not appreciate much periorbital edema, significant perioral edema, no tongue edema and able to visualize posterior pharynx Cardiovascular - S1S2, RRR, No edema Respiratory - Normal lung expansion, Normal respiratory effort, No respiratory distress, CTA bilaterally Gastrointestinal - NT / ND; +BS; No rebound or guarding - No CVA tenderness Extremities - no calf tenderness bilaterally, no swelling Musculoskeletal - Normal inspection, normal ROM Skin - Warm/Dry Neurological - Alert & oriented x3, No focal deficit Psychological - Appropriate affect Results Labs 02/06/24 02:46 02/06/24 02:46 Labs: Laboratory Results - last 24 hr 02/06/24 02:46 MCV 83.7 MCH 25.7 L MCHC 30.7 L RDW 16.7 H Plt Count 242 MPV 9.6 Immature Gran % (Auto) 0.4 Neut % (Auto) 39.3 L Lymph % (Auto) 46.0 H [place] % (Auto) 11.2 H Eos % (Auto) 2.3 Baso % (Auto) 0.8 Lymph # (Auto) 2.4 [place] # (Auto) 0.6 Eos # (Auto) 0.1 Baso # (Auto) 0.0 Abs Immat Gran (auto) 0.02 Absolute Neuts (auto) 2.1 Absolute Nucleated RBC 0.000 Nucleated RBC % (auto) 0.0 Anion Gap 12 Estim Creat Clear Calc 48.4 Estimated GFR 59 Random Glucose 114 Calcium 9.3 Total Bilirubin 0.4 Direct Bilirubin 0.1 AST 22 ALT 13 Alkaline Phosphatase 95 Troponin I High Sens < 2.7 Total Protein 6.8 Albumin 3.6 Lipase 27 Assessment and Plan (1) Angioedema: Status: Acute Plan 79-year-old female with multiple medical issues presenting with sudden onset facial swelling. She does have a history of enalapril use for hypertension. Presentation is consistent with angioedema and she has been treated in the emergency room with improvement. She will be now observed for resolution. 1. Acute angioedema, suspected secondary to BERNADETTE inhibitor use ACEI is added to her allergy list and will be discontinued upon discharge IV Solu-Medrol 40 mg twice daily, IV Pepcid 20 mg twice daily 2. Dysphagia Reports difficulty swallowing over 3-4 weeks. We will start with swallow evaluation. Unclear if these are related 3. History of hypertension We will observe and continue baseline medications as appropriate (minus enalapril) 4. 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 RA We will continue baseline meds DVT prophylaxis, Eliquis Full Code Quality Stroke Does the patient have a stroke diagnosis?: No VTE Prior VTE?: No VTE Risk Level:: Medical - moderate - high VTE Device Contraindication: Treatment Not Indicated VTE Drug Contraindication: N/A - Med Ordered
[2024-02-06] MEDS: Acetaminophen 325 MG TABLET 650 MG PO (10:03)
[2024-02-06] MEDS: methylPREDNISolone Sod Succ 40 MG/ML VIAL IVPUSH ×2 (10:05→21:01)
[2024-02-06] MEDS: Apixaban 5 MG TABLET PO ×2 (10:41→21:01)
--- NOTE | 2024-02-06 10:44 | PHA.MEDREC ---
Addendum entered by Samanta Pressley RPh 02/06/24 11:12: reviewed by [facility]. Original Note: Pharmacy Consult ? Medication Reconciliation Pharmacy has completed the medication reconciliation. Confirmed medication with patient and list from patient Med Box. Patient verified a few medications that were not on the med box list but claims she claims she fills at [facility] they were: Acetaminophen 500mg tab taking one tablet daily for headaches, Albuterol Inhaler 2 puffs every 4 hours as needed for Asthma, Eliquis 5mg tab 1 BID, Lefluromide 20mg 1 tab daily, Lorazepam 0.5mg 1 tab as needed for anxiety and Vitamin b-12 lozenge 1 sublingual daily. Looking in claims what the patient confirmed with me not on her Med Box list I did see they were recently filled and filled at [facility]. The patient states she last took her medications yesterday morning.
--- NOTE | 2024-02-06 11:27 | MHC.CM.PN ---
PT LIVES ALONE IS INDEPENDENT HAS OWN RIDE HOME DC PLAN HOME NO SERVIES
[2024-02-06] MEDS: hydroCHLOROthiazide 12.5 MG TABLET PO (11:54)
[2024-02-06] MEDS: Metoprolol Succinate ER 50 MG TAB.ER.24H PO (11:54)
--- NOTE | 2024-02-06 14:50 | PC.NURSE ---
speech in to see pt. Per MD, OK to give PO meds with sips of water. Nursing swallow pass. interested in food consistency.
[2024-02-06] MEDS: 0.9 % Sodium Chloride Flush 3 ML SYRINGE IVFLUSH ×2 (16:12→21:05)
--- NOTE | 2024-02-06 17:08 | MHC.SL.SWA ---
Risk of Aspiration Due to: globus sensation Dysphasia Diet Status: NDD3, thin Liquid Consistency and Strategies for Safe Swallow: Liquid Intake Recommendation: Thin Solid Food Consistency: Dietary Recommendations: Chopped/Advanced (NDD3) Additional Modifications to Solid Foods: Moisten w/ sauce/gravy Oral Medication Intake: Whole/Crushed with Puree Please contact the pharmacy regarding appropriate crushable or liquid drug formulations that are available whenever modified delivery is recommended. Compensatory Strategies and Precautions to be Taken for Safe Swallow: Sitting Upright (90 deg) Small Bites and Sips Alternate Liquids/Solids Rate of Ingestion Change Avoid Specific Foods Supervision While Eating and Drinking for Safe Swallow: Intermittent Supervision Foods to Avoid: Avoid dry foods Swallowing Recommended Treatments: Compens. Strategy Educat. Recommendation for Speech: Inpatient Speech Therapy Comment: Recommend UPGRADE to CHOPPED/ADVANCED solids (NDD3) and THIN liquids w/ PILLS CRUSHED/WHOLE in PUREE. Pt reporting acute changes in swallow (globus sensation, pain, bothersome) and voice (hoarse) starting 3-4 weeks ago; recommend ENT consult. Finish Painter Clinican/Clinical Fellow: No Supervisory Statement: I have reviewed and agree with the student/clinical fellow's documentation: N/A Speech Language Pathologist: Rachel Talbert M.A., CCC-CLOTH FINISHING RANGE OPERATOR
[2024-02-06] MEDS: Atorvastatin Calcium 20 MG TABLET PO (21:01)
[2024-02-07] MEDS: Acetaminophen 325 MG TABLET 650 MG PO (00:01)
[2024-02-07 03:24] VITALS: BP 136/72; PULSE 62; RESP 18; TEMP 36.9; O2SAT 97
[2024-02-07 07:59] VITALS: BP 141/66; PULSE 61; RESP 18; TEMP 36.7; O2SAT 97
--- NOTE | 2024-02-07 09:16 | MHC.SL.SWA ---
Speech Pathologist Impression: Risk of Aspiration Due to: oral/pharyngeal swelling Dysphasia Diet Status: Continue on Chopped/Advanced (NDD3) with THIN liquids, pills whole with puree. Liquid Consistency and Strategies for Safe Swallow: Liquid Intake Recommendation: Thin Liquid Intake Strategies: Solid Food Consistency: Dietary Recommendations: Chopped/Advanced (NDD3) Additional Modifications to Solid Foods: Moisten w/ sauce/gravy Oral Medication Intake: Whole with Puree Please contact the pharmacy regarding appropriate crushable or liquid drug formulations that are available whenever modified delivery is recommended. Compensatory Strategies and Precautions to be Taken for Safe Swallow: Sitting Upright (90 deg) Small Bites and Sips Alternate Liquids/Solids Rate of Ingestion Change Avoid Specific Foods Supervision While Eating and Drinking for Safe Swallow: None Needed Foods to Avoid: Avoid dry foods Swallowing Recommended Treatments: Compens. Strategy Educat. Recommendation for Speech: Inpatient Speech Therapy Comment: Patient was seen this morning during breakfast. Patient was awake and alert, sitting on the side of her bed to eat her meal. Patient on greeting me requested that her coffee be heated, which was obliged. Vocally, patient presented this morning with clear and articulate speech, no evidence of vocal difference or issues. Patient was very pleasant and cooperative. Patient's primary language is Kinyarwanda, and was communicated with in this language. Patient ate pieces of pancake, producing a normal rotary chew, though edentulous, timely swallow, no clinical signs of aspiration. On coffee patient took independent sips, produced a timely oral and pharyngeal phase of swallow, no clinical signs of aspiration. Patient reported that she did not have much of an appetite, and did not like the farina and other items on the tray. Although not much was consumed at breakfast, patient appears to be tolerating this diet consistency well. Continue on Chopped/Advanced (NDD3) with THIN liquids, pills whole with puree. Frequency/Duration: Date Range for Service Req: Timeline to reassess: Upholstery Repairer Clinican/Clinical Fellow: No Supervisory Statement: I have reviewed and agree with the student/clinical fellow's documentation: N/A Speech Language Pathologist: Lynette Clifton M.A., CCC-AUTO VINYL TOP INSTALLER
[2024-02-07] MEDS: Famotidine/PF 20 MG/2 ML VIAL IVPUSH (10:10)
[2024-02-07] MEDS: Apixaban 5 MG TABLET PO (10:11)
[2024-02-07] MEDS: Folic Acid 1 MG TABLET PO (10:11)
[2024-02-07] MEDS: methylPREDNISolone Sod Succ 40 MG/ML VIAL IVPUSH (10:11)
[2024-02-07] MEDS: DULoxetine HCl 60 MG CAPSULE.DR PO (10:11)
[2024-02-07] MEDS: Multivitamin TABLET 1 TAB PO (10:11)
[2024-02-07] MEDS: Cholecalciferol (Vitamin D3) 25 MCG TABLET 50 MCG PO (10:12)
[2024-02-07] MEDS: 0.9 % Sodium Chloride Flush 3 ML SYRINGE IVFLUSH (10:18)
[2024-02-07 10:19] VITALS: BP 135/63; PULSE 65
[2024-02-07] MEDS: Metoprolol Succinate ER 50 MG TAB.ER.24H PO (10:19)
[2024-02-07] MEDS: hydroCHLOROthiazide 12.5 MG TABLET PO (10:19)
--- NOTE | 2024-02-07 11:38 | P.DS_ITS ---
DS: Providers Provider Date of Service: 02/07/24 Date of admission: 02/06/24 09:21 Date of discharge: 02/07/24 Primary care physician: Erik Farrar MD Attending physician on discharge: Renny Glover Discharging clinician: Alissa Olguin DS: Diagnosis Discharge Diagnosis (1) Angioedema: Status: Acute DS: Summary Hospital Course Hospital Course: From H&P on the day of admission Patient is a 79-year-old female with a past medical history of hypertension, RA, PE on Eliquis, PVCs, GERD who presents to the emergency room with complaints of face and lip swelling which began on the night prior to admission. The patient reports she went to bed in her usual state of health and woke up with swelling of her face and lips. She reports a history of enalapril use, which he has been on for years. She denies any respiratory distress but does endorse a cough and trouble swallowing for about 3-4 weeks prior to presentation. She denies any fevers or chills. On arrival to the ED, patient was noted to have periorbital and perioral swelling with a patent airway. She was treated with IV Solu-Medrol and IV H2 blockers. She has begun to improve and will be observed in the hospital today. Patient is seen and examined in the emergency room around 09:00 with process improvement consultant services providing translation. Acute angioedema, suspected secondary to BERNADETTE inhibitor use ACEI is added to her allergy list and will be discontinued upon discharge She was treated with IV Solu-Medrol 40 mg twice daily, IV Pepcid 20 mg twice daily and her face/tongue swelling resolved. She is able to tolerate diet, no hypoxia noted, no sob. She is eager to return home. Dysphagia Reports difficulty swallowing over 3-4 weeks. Due to duration of symptoms and persistence after resolution of swelling not likely related to above angioedema. Seen by speech who recommended NDD3 diet. recommend outpatient follow-up with speech therapy and GI Time Attestation Discharge Coordination Time (in mins): 36 Quality: Safe Use of Opioids Does Pt have an Active Cancer Diagnosis on the Problem List?: No Quality: Stroke Does the patient have a stroke diagnosis?: No Physical Exam Vital Signs: Vital Signs: Last Vital Signs Temp 98.1 F 02/07/24 07:59 Pulse 65 02/07/24 10:19 Resp 18 02/07/24 07:59 BP 135/63 02/07/24 10:19 Pulse Ox 97 02/07/24 07:59 O2 Del Method Room Air 02/07/24 07:59 BMI result Body Mass Index 31.7 Const: General: cooperative, comfortable, no acute distress, alert and awake HEENT: Other: no facial or tongue swelling - back to baeline per patient Resp: Effort & Inspection: normal respiratory effort, able to speak in complete sentences, no respiratory distress and no use of accessory muscles Auscultation: clear to auscultation bilaterally Cardio: Rate: regular rate GI: Inspection: No distended Neuro: Other: grossly nonfocal, seen ambulating with walker difficulty Discharge Plan Discharge Patient Disposition: Home, Self-Care Discharge Diagnosis: angioedema due to BERNADETTE inhibitor Dysphagia Referrals: Jorge Baldwin MD [Physician] - 1 Week (dysphagia over one month ) Erik Farrar MD [Primary Care Provider] - 1 Week Discharge Medications: New prednisone 20 mg tablet 40 mg PO DAILY 5 Days Qty: 10 0RF Continued cholecalciferol (vitamin D3) 50 mcg (2,000 unit) capsule 50 mcg PO DAILY Qty: 90 1RF leflunomide 20 mg tablet 20 mg PO DAILY Qty: 90 0RF Eliquis 5 mg Tablet 5 mg PO BID Qty: 60 6RF cyanocobalamin (vitamin B-12) 1,000 mcg Lozenge 1,000 mcg SUBLINGUAL DAILY Qty: 90 3RF folic acid 1 mg tablet 1 mg PO DAILY albuterol sulfate [ProAir HFA] 90 mcg/actuation HFA aerosol inhaler 2 puff inhalation Q4H PRN (Reason: Asthma) temazepam 30 mg capsule 30 mg PO BEDTIME PRN (Reason: Insomnia) metoprolol succinate 50 mg tablet extended release 24 hr 50 mg PO DAILY multivitamin Tablet 1 tab PO DAILY duloxetine 60 mg capsule,delayed release(DR/EC) 60 mg PO DAILY lorazepam 0.5 mg tablet 0.5 mg PO DAILY PRN (Reason: Anxiety) acetaminophen [Mapap (acetaminophen)] 500 mg capsule 500 mg PO DAILY atorvastatin 20 mg tablet 20 mg PO BEDTIME hydrochlorothiazide 12.5 mg tablet 12.5 mg PO DAILY Discontinued enalapril maleate 20 mg tablet 20 mg PO BID Discharge Orders: Discharge Order (Routine); Ordered 02/07/24 Ordered By: Alissa Olguin Activity on Discharge: As tolerated Stand Alone Forms: Patient Portal Discharge page Print Language: Angolan Care Plan Goals: see below Health Concerns: Angioedema due to BERNADETTE inhibitor Dysphagia Plan of Treatment: Swelling has resolved. Do not take enalapril or any other BERNADETTE inhibitor ever in the future Continue prednisone as prescribed Blood pressure has been controlled, call to schedule follow-up appointment with PCP for close blood pressure monitoring due to dysphagia - seen by speech therapy has recommended NDD3 diet - chopped food, small bites, alternate liquids, solids. Recommend outpatient follow-up with speech and GI Assessment: see discharge summary
[2024-02-07 12:00] VITALS: BP 164/74; PULSE 64; RESP 18; TEMP 36.9; O2SAT 94
[2024-02-07] MEDS: Butalb/Acetamin/Caff 50/325/40 TABLET 1 TAB PO (12:15)
--- NOTE | 2024-02-07 12:38 | MHC.CM.PN ---
DP: PT HAS BEEN MEDICALLY CLEARED FOR DC HOME, NO SERVICES. PT HAS OWN RIDE HOME.
== END 2024-02-07 13:41 | disposition home or self-care (01) ==
LOC: HO.ED 03:04 → HO.EDOVER 09:29 → HO.S3 19:59
PROVIDERS: Admitting Provider Family Medicine; Emergency Provider Emergency Medicine; PCP Internal Medicine; Visit Provider Physician Assistant Medical
DX: T78.3XXA Angioneurotic edema, initial encounter (principal); T46.4X5A Adverse effect of angiotensin-converting-enzyme inhibitors, initial encounter; R13.10 Dysphagia, unspecified; Y92.9 Unspecified place or not applicable; I10 Essential (primary) hypertension; M06.9 Rheumatoid arthritis, unspecified; Z79.01 Long term (current) use of anticoagulants; Z86.718 Personal history of other venous thrombosis and embolism; Z86.711 Personal history of pulmonary embolism; Z79.899 Other long term (current) drug therapy
CPT/HCPCS: 36415; 80048; 80076; 83690; 84484; 85025; 92526; 92610; 93005; 96361; 96374; 96375; 96376; 99221; 99285; J1200; J2919

== ENCOUNTER → 2024-02-06 09:21 | Outpatient (BNV) | payer OTHER, SELFPAY | PROVIDERS: Admitting Provider Family Medicine; Emergency Provider Emergency Medicine; PCP Internal Medicine; Visit Provider Family Medicine | DX: T78.3XXA Angioneurotic edema, initial encounter (principal) | CPT/HCPCS: 99222; 99239 ==

== ENCOUNTER 2024-02-27 13:24 | Outpatient (REF) | payer OTHER, SELFPAY ==
[2024-02-27 14:51] LABS: Appearance Urine Clear; Color Urine Yellow; Glucose Urine UA Negative (Negative); Leukocyte Esterase Urine Negative (Negative); Nitrite Urine Negative (Negative); Urine Blood Negative (Negative); Urine Ketones Negative (Negative); Urine Protein Negative (Neg-Trace)
[2024-02-27 14:56] LABS: Bacteria Urine None Seen (None Seen); Hyaline Casts Urine 0-2 /LPF (0-2); RBC Urine 0-2 /HPF (0-2); Squamous Epithelial Cell Urine 0-2 /HPF (0-2); WBC Urine 0-5 /HPF (0-5)
[2024-02-27 15:17] LABS: Creatinine Urine 95.73 mg/dL; Total Protein Urine Random < 7 mg/dL (<12)
[2024-02-28 08:51] LABS: HBS Num1 0.66 mIU/mL (0-7.99); HBc Num1 0.05 S/CO (0.00-0.79); HBsAGNum1 0.29 S/CO (0.00-0.99); Hepatitis A Antibody IgM 0.17 Index (0-0.79); Hepatitis B Core Antibody Nonreactive (Nonreactive); Hepatitis B Surface Antigen Negative (Negative); ~HepC Num1 0.06 S/CO (0.00-0.79); ~Hepatitis A Antibody IgM Nonreactive (Nonreactive); ~Hepatitis B Surface Antibody NONREACTIVE (Nonreactive); ~Hepatitis C Antibody Nonreactive (Nonreactive)
[2024-02-28 13:09] LABS: Complement C3 150 mg/dL (83-193)
[2024-02-29 19:48] LABS: IgA 265 mg/dL (70-320); IgG 958 mg/dL (600-1540); IgM 117 mg/dL (50-300)
[2024-02-29 20:13] LABS: Anti DNA DS Antibody <1 IU/mL; SM/Ribonucleoprotein Ab <1.0 NEG AI (<1.0 NEG); Smith Protein <1.0 NEG AI (<1.0 NEG)
[2024-03-03 22:44] LABS: Prot Elec - Albumin 3.6 g/dL (3.8-4.8); Prot Elec - Alpha1 0.4 g/dL (0.2-0.3); Prot Elec - Alpha2 0.9 g/dL (0.5-0.9); Prot Elec - Beta 1 0.5 g/dL (0.4-0.6); Prot Elec - Beta 2 0.4 g/dL (0.2-0.5); Prot Elec - Gamma 0.8 g/dL (0.8-1.7); Prot Elec - Total Protein 6.5 g/dL (6.1-8.1)
[2024-03-06 06:10] LABS: DNAds, Crithidia Antibody Negative (Negative)
== END 2024-02-27 13:25 | disposition home or self-care (01) ==
LOC: HO.LAB 13:24
PROVIDERS: PCP Internal Medicine; Visit Provider Student in an Organized Health Care Education/Training Program
DX: M32.9 Systemic lupus erythematosus, unspecified (principal); Z11.59 Encounter for screening for other viral diseases
CPT/HCPCS: 36415; 81001; 82570; 82784; 84156; 84165; 86160; 86225; 86235; 86255; 86334; 86704; 86706; 86709; 86803; 87340

== ENCOUNTER 2024-02-28 12:05 | Outpatient (REF) | payer OTHER, SELFPAY ==
[2024-02-28 12:52] LABS: MANUAL DIFF FLAG NO
[2024-02-28 13:23] LABS: Basophils Absolute Auto 0.1 X10*3/uL (0.0-0.2); Basophils Percent Auto 1.1 % (0-2); Eosinophils Absolute Auto 0.2 X10*3/uL (0.0-0.4); Hematocrit 40.5 % (37.0-47.0); Hemoglobin 12.2 g/dl (12.0-16.0); Imm Gran Abs Auto 0.01 X10*3/uL (0.00-0.03); Imm Gran Pct Auto 0.2 % (0.0-0.4); Lymphocytes Absolute Auto 1.8 X10*3/uL (1.2-4.9); Lymphocytes Percent Auto 38.9 % (20-40); Mean Corpuscular HGB Conc 30.1 g/dl (31.0-35.0); Mean Corpuscular Hemoglobin 25.5 pg (27.0-33.0); Mean Corpuscular Volume 84.7 fL (80.0-98.0); Mean Platelet Volume 10.1 fL (9.4-12.3); Monocytes Absolute Auto 0.5 X10*3/uL (0.1-1.2); Monocytes Percent Auto 9.8 % (2-11); Neutrophils Absolute Auto 2.1 x10*3/uL (2.0-8.3); Platelet Count 236 X10*3/uL (160-400); Red Blood Count 4.78 X10*6/uL (4.20-5.50); Red Cell Distribution Width 16.8 % (11.0-16.0); White Blood Count 4.6 X10*3/uL (4.8-10.8)
[2024-02-28 13:48] LABS: Alanine Aminotransferase 11 U/L (0-31); Albumin Level 3.9 g/dL (3.5-5.0); Alkaline Phosphatase 79 U/L (39-117); Anion Gap 11 (12-20); Aspartate Amino Transferase 21 U/L (5-31); Bilirubin Total 0.5 mg/dL (0.0-1.0); Blood Urea Nitrogen 13 mg/dL (9-16); C Reactive Protein < 0.10 mg/dL (< or = 0.50); Calcium 9.9 mg/dL (8.4-10.2); Carbon Dioxide 28 mmol/L (22-29); Chloride 107 mmol/L (96-108); Estimated Glomerular Filt Rate > 60; Glucose Random 105 mg/dL (60-115); Potassium 4.3 mmol/L (3.3-5.1); Sodium 142 mmol/L (135-145); Total Protein 7.3 g/dL (6.5-8.0); Uric Acid 4.3 mg/dL (2.4-5.7)
[2024-02-28 14:08] LABS: Erythrocyte Sedimentation Rate 27 MM/HR (0-20)
[2024-03-01 23:03] LABS: TS Negative Control Passed; TS Panel A 0; TS Panel B 2; TS Positive Control Passed; TSpotTB Negative (Negative)
== END 2024-02-28 12:06 | disposition home or self-care (01) ==
LOC: HO.LAB 12:05
PROVIDERS: PCP Internal Medicine; Visit Provider Student in an Organized Health Care Education/Training Program
DX: M32.9 Systemic lupus erythematosus, unspecified (principal); Z11.7 Encounter for testing for latent tuberculosis infection; M10.9 Gout, unspecified
CPT/HCPCS: 36415; 80053; 84550; 85025; 85652; 86140; 86481

== ENCOUNTER 2024-03-04 10:01 | Outpatient (AMB) | payer OTHER, SELFPAY ==
--- NOTE | 2024-03-04 10:06 | A.OFFVIS_ITS ---
Vital Signs 03/04/24 10:13 Height 5 ft 3 in Weight 167 lb 5.294 oz BMI 29.6 BP 116/72 Blood Pressure Location Rt brachial Position Sitting Pulse 82 Pulse Source Pulse Oximeter Pulse Oximetry (%) 96 Oxygen Delivery Method Room Air Intake Visit Reasons: RA/Ankle swelling right Intake Note: Patient presents for PA/right ankle swelling. Packaging Machine Supplies Distributor Required: Yes Packaging Machine Supplies Distributor Language: Cloud Subject Matter Expert Services: Packaging Machine Supplies Distributor Offered & Declined Packaging Machine Supplies Distributor Name: Yolanda Khanna Information Interpreted: non-clinical & clinical Solid Waste Analyst: Solid Waste Analyst Present Accompanied by: Daughter Allergies BERNADETTE Inhibitors Allergy (Severe, Verified 03/04/24 10:12) Angioedema Iodinated Contrast Media [CONTRAST, IV] Allergy (Intermediate, Verified 03/04/24 10:12) SWELLING, ITCHINESS, RASH Penicillins [PENICILLINS] Allergy (Intermediate, Verified 03/04/24 10:12) ITCHINESS, RASH, SWELLING latex Allergy (Verified 03/04/24 10:12) Hives Sulfa (Sulfonamide Antibiotics) Allergy (Verified 03/04/24 10:12) Unknown zoledronic acid [From Reclast] Adverse Reaction (Verified 03/04/24 10:12) Joint Pain Medication List - Last Reconciled 03/04/24 by Abdelrahman Hester MD acetaminophen (Mapap (acetaminophen)) 500 mg PO DAILY albuterol sulfate 90 mcg/actuation (ProAir HFA) 2 puffs inhalation Q4H PRN apixaban (Eliquis) 5 mg PO BID atorvastatin 20 mg PO BEDTIME cholecalciferol (vitamin D3) 50 mcg PO DAILY cyanocobalamin (vitamin B-12) 1,000 mcg sublingual DAILY duloxetine 60 mg PO DAILY folic acid 1 mg PO DAILY hydrochlorothiazide 12.5 mg PO DAILY leflunomide 20 mg PO DAILY lorazepam 0.5 mg PO DAILY PRN metoprolol succinate ER 50 mg PO DAILY multivitamin 1 tab PO DAILY temazepam 30 mg PO BEDTIME PRN HPI Comments Details: 79-year-old female with seropositive RA returns for follow-up. She is on leflunomide 20 mg daily. She states that she is doing much better overall. In previous visit patient was having significant ankle swelling, this was treated with prednisone tapers. She states that she continues to have multiple joint pains especially her hands, elbows, ankles but not as severe as it was in the past. 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[employer]) Alcohol intake: never Patient Tobacco Use Status: Never used Tobacco Advance Directives Date on File: 02/06/24 service: No Current occupational status: disabled Review of Systems [facility] Reports arthralgias and Reports joint swelling Physical Exam Vital Signs: Last Vital Signs Pulse 82 03/04/24 10:13 BP 116/72 03/04/24 10:13 Pulse Ox 96 03/04/24 10:13 Oxygen Delivery Method Room Air 03/04/24 10:13 BMI result Body Mass Index 29.6 Const General: cooperative, healthy appearing and comfortable Nutritional Appearance: overweight Orientation/consciousness: patient oriented x3 Limitations: no limitations HEENT Head: Yes normocephalic and Yes atraumatic Mouth: moist mucous membranes Resp Effort & Inspection: normal respiratory effort and able to speak in complete sentences Cardio Rate: regular rate Rhythm: regular rhythm Skin General skin exam: no rashes or lesions noted Neuro General: patient oriented x3 Extrem Other: RA changes of both hands with prominent MCP synovial thickening and swan-neck deformity of left 5th finger Bilateral wrist tenderness without significant swelling Tender MCPs and PIP is both hands Bilateral elbow pain with full extension Mild bilateral ankle swelling and tenderness Left knee crepitus Assessment & Plan Assessment & Plan (1) Seropositive rheumatoid arthritis: Comment: +++RF+++CCP Humira October 2019- February 2020 - not effective Enbrel- February 2020 to April 2020- self stopped due to cholecystitis, then had cholecystectomy. 06/2020 Low dose methothrexate - partial effective so Kevzara started July 2020- discontinued June 2022 due to neutropenia and leukopenia Methotrexate: January 2020 discontinued 06/2022 due to neutropenia. Out of touch in [place] 06/2022 to 11/2022. MTx restarted 02/2023 MTX DC 06/2023 due to GI upset Leflunomide 06/2023 effective Code(s): M05.9 - Rheumatoid arthritis with rheumatoid factor, unspecified Category: Medical Plan: This is a 79-year-old female with seropositive deforming RA who presents for follow-up. She is on leflunomide 20 mg daily. Doing much better overall. She continues to have few swollen and tender joints. Will continue to monitor patient on leflunomide 20 mg daily. Can consider adding Orencia in the future Patient has history of PE on long-term coagulation. Labs before next visit in 3 months (2) Long-term use of immunosuppressant medication: Code(s): Z79.60 - tank terminal gauger (current) use of unspecified immunomodulators and immunosuppressants Category: Medical Plan: Monitor safety lab Plan I spent 30 minutes reviewing patient's chart, evaluating patient, ordering diagnostic workup, counseling patient and documenting in the chart Orders: Orders Comprehensive Met. Panel 3 Months M05.9 - Rheumatoid arthritis with rheumatoid factor, unspecified, Z79.60 - [facility] (current) use of unspecified immunomodulators and immunosuppressants Erythrocyte Sedimentation Rate 3 Months M05.9 - Rheumatoid arthritis with rheumatoid factor, unspecified, Z79.60 - [facility] (current) use of unspecified immunomodulators and immunosuppressants Complete Blood Count Auto Diff 3 Months M05.9 - Rheumatoid arthritis with rheumatoid factor, unspecified, Z79.60 - tank terminal gauger (current) use of unspecified immunomodulators and immunosuppressants C Reactive Protein 3 Months M05.9 - Rheumatoid arthritis with rheumatoid factor, unspecified, Z79.60 - tank terminal gauger (current) use of unspecified immunomodulators and immunosuppressants Medications: Discontinued prednisone Discontinued Reason: Patient Completed Course 40 mg (2 x 20 mg) PO DAILY 5 days 10 tabs 0RF Coding Level of Care Code Est Pt Level 4 (90797) Diagnoses Seropositive rheumatoid arthritis M05.9 Long-term use of immunosuppressant medication Z79.60
[2024-03-04 10:13] VITALS: BP 116/72; PULSE 82; O2SAT 96; BMI 29.6
== END 2024-03-04 10:49 | disposition home or self-care (01) ==
PROVIDERS: PCP Internal Medicine; Visit Provider Student in an Organized Health Care Education/Training Program
DX: M05.79 Rheumatoid arthritis with rheumatoid factor of multiple sites without organ or systems involvement (principal); Z79.60 Long term (current) use of unspecified immunomodulators and immunosuppressants
CPT/HCPCS: 99214

== ENCOUNTER → 2024-03-04 10:01 | Outpatient (BNVA) | payer OTHER, SELFPAY | PROVIDERS: PCP Internal Medicine; Visit Provider Student in an Organized Health Care Education/Training Program | DX: M06.9 Rheumatoid arthritis, unspecified (principal); Z79.60 Long term (current) use of unspecified immunomodulators and immunosuppressants | CPT/HCPCS: 99212 ==

== ENCOUNTER 2024-03-05 12:30 | Outpatient (AMB) | payer OTHER, SELFPAY ==
[2024-03-05 12:33] VITALS: BP 116/60; PULSE 80; BMI 29.7
--- NOTE | 2024-03-05 12:33 | MHC.OFFVIS ---
Vital Signs 03/05/24 12:33 Height 5 ft 3 in Weight 167 lb 8.821 oz BMI 29.7 BP 116/60 Blood Pressure Location Lt brachial Position Sitting Pulse 80 Pulse Source Pulse Oximeter Intake Visit Reasons: new dx palpitation (away all of Jan) Apartment Maintenance Technician Required: Yes Apartment Maintenance Technician Services: Apartment Maintenance Technician Offered & Declined Allergies BERNADETTE Inhibitors Allergy (Severe, Verified 03/04/24 10:12) Angioedema Iodinated Contrast Media [CONTRAST, IV] Allergy (Intermediate, Verified 03/04/24 10:12) SWELLING, ITCHINESS, RASH Penicillins [PENICILLINS] Allergy (Intermediate, Verified 03/04/24 10:12) ITCHINESS, RASH, SWELLING latex Allergy (Verified 03/04/24 10:12) Hives Sulfa (Sulfonamide Antibiotics) Allergy (Verified 03/04/24 10:12) Unknown zoledronic acid [From Reclast] Adverse Reaction (Verified 03/04/24 10:12) Joint Pain Medication List - Last Reconciled 03/05/24 by Abdulkadir Saucedo MD acetaminophen (Mapap (acetaminophen)) 500 mg PO DAILY albuterol sulfate 90 mcg/actuation (ProAir HFA) 2 puffs inhalation Q4H PRN apixaban (Eliquis) 5 mg PO BID atorvastatin 20 mg PO BEDTIME cholecalciferol (vitamin D3) 50 mcg PO DAILY cyanocobalamin (vitamin B-12) 1,000 mcg sublingual DAILY duloxetine 60 mg PO DAILY hydrochlorothiazide 12.5 mg PO DAILY leflunomide 20 mg PO DAILY lorazepam 0.5 mg PO DAILY PRN metoprolol succinate ER 50 mg PO DAILY multivitamin 1 tab PO DAILY temazepam 30 mg PO BEDTIME PRN HPI Comments Details: Vicky is here for consultation regarding chest pain and some palpitations. She was previously seen in 2019. At that time, workup showed a small pericardial effusion but otherwise unremarkable. It was felt that her symptoms are musculoskeletal and probably related to rheumatoid arthritis. She is returning back with similar complaints. She states she gets pain across the chest. She describes this in the lower part of left chest, beneath the breast area. It travels along the ribs to the back. Can happen any time. More so at rest than during exertion. Seems fairly atypical. She also gets sensations of heart racing at different times. No previously documented coronary disease or myocardial infarction. [facility] Medical History Right ankle swelling Long-term use of immunosuppressant medication Dry skin dermatitis Leg edema Surgical History History of cholecystectomy History of appendectomy History of total abdominal hysterectomy and bilateral salpingo-oophorectomy History of bariatric surgery History of colonoscopy Family History Father Asthma Mother Rheumatoid arthritis Cardiovascular disease Social History Household Members: Family Housing: House Are you a primary child day care center worker to a significant other at home: No Do you presently have visiting nurse or other home services: Yes (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) Alcohol intake: never Patient Tobacco Use Status: Never used Tobacco Advance Directives Date on File: 02/06/24 service: No Current occupational status: disabled Review of Systems Const Denies weakness ENT Denies dizziness Card Denies chest pain, Denies chest pain with activity, Denies syncope, Denies rapid heart rate, Denies pedal edema, Denies edema, Denies leg edema, Denies lightheadedness, Reports palpitations, Denies dyspnea, Denies dyspnea on exertion and Denies orthopnea Resp Denies cough, Denies dyspnea and Denies dyspnea on exertion GI Denies hematochezia and Denies change in stool character Musc Denies abnormal gait, Denies muscle cramps, Denies muscle weakness, Denies numbness, Denies radiating pain into limb and Denies tingling Neuro Denies abnormal gait, Denies dizziness, Denies syncope, Denies numbness, Denies tingling and Denies weakness Endo Reports palpitations Physical Exam Vital Signs: Last Vital Signs Pulse 80 03/05/24 12:33 BP 116/60 03/05/24 12:33 BMI result Body Mass Index 29.7 Const General: comfortable and no acute distress Orientation/consciousness: patient oriented x3 HEENT Other: Unremarkable Head: Yes normal to inspection Neck Neck: Yes normal visual inspection Chest Chest palpation & inspection: normal inspection of the chest Resp Auscultation: clear to auscultation bilaterally Cardio Palpation: normal PMI Heart sounds: S1 normal heart sound present, S2 normal heart sound present, no gallops, no murmurs and no rubs GI Palpation (GI): Soft to palpation Back/Spine/Pelvis Other: unremarkable Skin General skin exam: no rashes or lesions noted Neuro General: patient oriented x3 Extrem General: Yes normal to inspection Psych Mental Status: mental status grossly normal Assessment & Plan Assessment & Plan (1) Precordial chest pain: Code(s): R07.2 - Precordial pain Category: Medical (2) Palpitations: Code(s): R00.2 - Palpitations Category: Medical Plan In the recent EKG, underlying rhythm is sinus at 64/Min; cannot exclude old inferior infarct; low-voltage complexes. Overall, no major change compared to prior. In the chest CT scan, there is moderate coronary artery calcification. Atherosclerotic disease of thoracic aorta. However, these changes are fairly common at this age. High sensitivity troponins checked over the last few years at different times have been within normal limits. Overall, atypical symptoms, abnormal EKG, risk factors and coronary calcification on CT scan. In a prior echocardiogram from 2020, trivial to mild circumferential pericardial effusion. We will repeat the study to see if there is any increase in size as that can sometimes cause atypical chest pains. We will do a pharmacological stress perfusion imaging study. She is highly unlikely to exercise on the treadmill. Holter monitor for palpitations. Follow-up after the above. Discussed with daughter. Orders: Orders ECG 7 day holter monitor Today R00.2 - Palpitations NM cardiolite stress test Today R07.2 - Precordial pain CA echo transthoracic complete Today I25.10 - Atherosclerotic heart disease of [place] coronary artery without angina pectoris CA lexiscan stress w andrew Today I20.9 - Angina pectoris, unspecified Coding Level of Care Code New Pt Level 4 (89826) Diagnoses Precordial chest pain R07.2 Palpitations R00.2
== END 2024-03-05 13:00 | disposition home or self-care (01) ==
PROVIDERS: PCP Internal Medicine; Visit Provider Internal Medicine
DX: R07.2 Precordial pain (principal); R00.2 Palpitations
CPT/HCPCS: 99204

== ENCOUNTER → 2024-03-05 12:30 | Outpatient (BNVA) | payer OTHER, SELFPAY | PROVIDERS: PCP Internal Medicine; Visit Provider Internal Medicine | DX: R07.2 Precordial pain (principal); R00.2 Palpitations | CPT/HCPCS: 99202 ==

== ENCOUNTER 2024-03-14 13:41 | Outpatient (AMB) | payer OTHER, SELFPAY ==
[2024-03-14 13:44] VITALS: BP 128/72; PULSE 80; O2SAT 96; BMI 29.6
--- NOTE | 2024-03-14 13:44 | MHC.OFFVIS ---
Vital Signs 03/14/24 13:44 Height 5 ft 3 in Weight 167 lb BMI 29.6 BP 128/72 Blood Pressure Location Rt brachial Position Sitting Pulse 80 Pulse Source Doppler Pulse Oximetry (%) 96 Oxygen Delivery Method Room Air Intake Visit Reasons: asthma Allergies BERNADETTE Inhibitors Allergy (Severe, Verified 03/04/24 10:12) Angioedema Iodinated Contrast Media [CONTRAST, IV] Allergy (Intermediate, Verified 03/04/24 10:12) SWELLING, ITCHINESS, RASH Penicillins [PENICILLINS] Allergy (Intermediate, Verified 03/04/24 10:12) ITCHINESS, RASH, SWELLING latex Allergy (Verified 03/04/24 10:12) Hives Sulfa (Sulfonamide Antibiotics) Allergy (Verified 03/04/24 10:12) Unknown zoledronic acid [From Reclast] Adverse Reaction (Verified 03/04/24 10:12) Joint Pain HPI HPI asthma: Details: 79-year-old lady, nonsmoker, with underlying history asthma previously on albuterol MDI only referred for pulmonary follow-up. Patient states that she has been experiencing nocturnal wheezing on a regular basis. She is also complains of environmental allergies. Patient does have history of asthma in her siblings and parents. She has been employed without exposure to industrial dusts. [facility] Medical History Right ankle swelling Long-term use of immunosuppressant medication Dry skin dermatitis Leg edema Surgical History History of cholecystectomy History of appendectomy History of total abdominal hysterectomy and bilateral salpingo-oophorectomy History of bariatric surgery History of colonoscopy Family History Father Asthma Mother Rheumatoid arthritis Cardiovascular disease Social History Household Members: Family Housing: House Are you a primary healthcare architect to a significant other at home: No Do you presently have visiting nurse or other home services: Yes (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[employer]) Alcohol intake: never Patient Tobacco Use Status: Never used Tobacco Advance Directives Date on File: 02/06/24 service: No Current occupational status: disabled Review of Systems Const Denies daytime sleepiness, Denies excessive sweating, Denies fatigue, Denies fever(s), Denies lethargy, Denies malaise, Denies night sweats, Denies snoring and Denies weight loss Eyes Denies blurry vision and Denies itchy eyes ENT Denies nasal congestion, Denies post nasal drip, Denies sinus pain, Denies sinus pressure and Denies other ( Thrush) Card Denies chest pain, Denies pedal edema, Denies dyspnea, Denies orthopnea and Denies paroxysmal nocturnal dyspnea Resp Denies cough, Denies hemoptysis, Denies excessive phlegm production, Denies dyspnea, Denies snoring and Reports wheezing GI Denies abdominal pain and Denies heartburn Musc Denies myalgias, Denies arthralgias and Denies joint swelling Skin/Breast Denies rash Neuro Denies memory loss and Denies seizure-like activity Psych Denies abnormal sleep pattern, Denies anxiety and Denies memory loss Endo Denies excessive sweating, Denies fatigue and Denies heat intolerance Manuel/Lymph Denies easy bruising Aller/Immun Denies itchy eyes, Denies seasonal rhinorrhea and Reports wheezing Physical Exam Vital Signs: Last Vital Signs Pulse 80 03/14/24 13:44 BP 128/72 03/14/24 13:44 Pulse Ox 96 03/14/24 13:44 Oxygen Delivery Method Room Air 03/14/24 13:44 BMI result Body Mass Index 29.6 Const General: no acute distress and alert Nutritional Appearance: not obese Orientation/consciousness: Other orientation findings ( oriented) HEENT Head: Yes atraumatic Eyes General: appearance normal, both eyes and all related structures Sclerae: sclerae normal EOM: EOMs intact bilaterally Neck Neck: Yes supple Lymphatic: no lymphadenopathy noted Resp Effort & Inspection: normal respiratory effort and no use of accessory muscles Auscultation: clear to auscultation bilaterally Cardio Rate: regular rate Rhythm: regular rhythm Heart sounds: no gallops, no murmurs and no rubs Skin General skin exam: other ( warm) Extrem General: No clubbing, No cyanosis and No edema Assessment & Plan Assessment & Plan (1) Environmental allergies: Code(s): Z91.09 - Other allergy status, other than to drugs and biological substances Category: Medical Plan: Will obtain IgE level, CBC with differential, and RAST panel for further evaluation. (2) Asthma: Code(s): J45.909 - Unspecified asthma, uncomplicated Category: Medical Plan: Uncontrolled on current albuterol MDI. Will add Breo and obtain full PFT. Orders: Orders Resp Allergy Profile Region I Today Z91.09 - Other allergy status, other than to drugs and biological substances PFT pulmonary function test Today J45.909 - Unspecified asthma, uncomplicated Medications: New fluticasone furoate-vilanterol 200-25 mcg/dose (Breo Ellipta) 1 inh inhalation DAILY 60 ea 6RF J45.909 - Unspecified asthma, uncomplicated Coding Level of Care Code New Pt Level 4 (90520) Diagnoses Environmental allergies Z91.09 Asthma J45.909
== END 2024-03-14 14:12 | disposition home or self-care (01) ==
PROVIDERS: PCP Internal Medicine; Visit Provider Internal Medicine Pulmonary Disease
DX: Z91.09 Other allergy status, other than to drugs and biological substances (principal); J45.909 Unspecified asthma, uncomplicated
CPT/HCPCS: 99204

== ENCOUNTER 2024-03-14 13:41 | Outpatient (REF) | payer OTHER, SELFPAY ==
[2024-03-14 14:59] LABS: MANUAL DIFF FLAG NO
[2024-03-14 15:38] LABS: Basophils Percent Auto 0.8 % (0-2); Eosinophils Absolute Auto 0.2 X10*3/uL (0.0-0.4); Eosinophils Percent Auto 4.3 % (0-4); Hematocrit 41.4 % (37.0-47.0); Hemoglobin 12.5 g/dl (12.0-16.0); Imm Gran Abs Auto 0.01 X10*3/uL (0.00-0.03); Imm Gran Pct Auto 0.2 % (0.0-0.4); Lymphocytes Absolute Auto 2.4 X10*3/uL (1.2-4.9); Lymphocytes Percent Auto 49.1 % (20-40); Mean Corpuscular HGB Conc 30.2 g/dl (31.0-35.0); Mean Corpuscular Hemoglobin 25.9 pg (27.0-33.0); Mean Corpuscular Volume 85.9 fL (80.0-98.0); Mean Platelet Volume 10.9 fL (9.4-12.3); Monocytes Absolute Auto 0.6 X10*3/uL (0.1-1.2); Neutrophils Absolute Auto 1.6 x10*3/uL (2.0-8.3); Neutrophils Percent Auto 33.6 % (45-73); Platelet Count 268 X10*3/uL (160-400); Red Blood Count 4.82 X10*6/uL (4.20-5.50); White Blood Count 4.9 X10*3/uL (4.8-10.8)
[2024-03-18 20:03] LABS: Class Alternaria alternata 0; Class Aspergillus fumigatus 0; Class Bermuda Grass 0; Class Birch 0; Class Cat Dander 0; Class Cladosporium herbarum 0; Class Cockroach 0; Class Common Ragweed 0; Class Cottonwood 0; Class Derm. pterony 0; Class Dermatophagoides farinae 0; Class Dog Dander 0; Class Elm 0; Class Maple Box Elder 0; Class Mountain Cedar 0; Class Mouse Urine Protein 0; Class Mugwort 0; Class Oak 0; Class Penicillium crysogenum 0; Class Rough Pigweed 0; Class Sheep Sorrel 0; Class Sycamore 0; Class Timothy Grass 0; Class Walnut Tree 0; Class White Ash 0; Class White Mulberry 0; D001 IgE D pteronyssinus <0.10 kU/L; D002 - IgE D farinae <0.10 kU/L; E001 - IgE Cat Dander <0.10 kU/L; E005 - IgE Dog Dander <0.10 kU/L; E072-IgE Mouse Urine <0.10 kU/L; G002 IgE Bermuda Grass <0.10 kU/L; G006 - IgE Timothy Grass <0.10 kU/L; I006-IgE Cockroach, German <0.10 kU/L; Immunoglobulin E 46 kU/L (<OR=114); M001 IgE Penicillium chrysogen <0.10 kU/L; M002 - IgE Cladosporium herbar <0.10 kU/L; M003 - IgE Aspergillus fumigat <0.10 kU/L; M006 - IgE Alternaria alternat <0.10 kU/L; T001 IgE Maple/Box Elder <0.10 kU/L; T003 IgE Common Silver Birch <0.10 kU/L; T006 - IgE Cedar, Mountain <0.10 kU/L; T007 - IgE Oak, White <0.10 kU/L; T008 IgE Elm, American <0.10 kU/L; T010 - IgE Walnut <0.10 kU/L; T011 - IgE Maple Leaf Sycamore <0.10 kU/L; T014 - IgE Cottonwood <0.10 kU/L; T015 - IgE Ash, White <0.10 kU/L; T070 - IgE White Mulberry <0.10 kU/L; W001 - IgE Ragweed, Short <0.10 kU/L; W006 - IgE Mugwort <0.10 kU/L; W014 IgE Pigweed, Common <0.10 kU/L; W018 IgE Sheep Sorrel <0.10 kU/L
== END 2024-03-14 13:42 | disposition home or self-care (01) ==
LOC: HO.LAB 13:41
PROVIDERS: PCP Internal Medicine; Visit Provider Internal Medicine Pulmonary Disease
DX: J45.909 Unspecified asthma, uncomplicated (principal); Z91.09 Other allergy status, other than to drugs and biological substances; Z57.2 Occupational exposure to dust
CPT/HCPCS: 36415; 82785; 85025; 86003; 99202

== ENCOUNTER 2024-03-20 10:59 | Outpatient (AMB) | payer OTHER, SELFPAY ==
--- NOTE | 2024-03-20 11:08 | A.OFFVIS_ITS ---
Intake Visit Reasons: urinary incontinence Intake Note: Patient is present for URINARY INCONTINENCE Urology Medication:VITAMIN B12 Antibiotic Allergy:PENICILLIN, SULFA Blood Thinner:ELIQUIS Medical Administrative Required: No Allergies BERNADETTE Inhibitors Allergy (Severe, Verified 03/20/24 11:10) Angioedema Iodinated Contrast Media [CONTRAST, IV] Allergy (Intermediate, Verified 03/20/24 11:10) SWELLING, ITCHINESS, RASH Penicillins [PENICILLINS] Allergy (Intermediate, Verified 03/20/24 11:10) ITCHINESS, RASH, SWELLING latex Allergy (Verified 03/20/24 11:10) Hives Sulfa (Sulfonamide Antibiotics) Allergy (Verified 03/20/24 11:10) Unknown zoledronic acid [From Reclast] Adverse Reaction (Verified 03/20/24 11:10) Joint Pain HPI Comments Details: Vicky is here for c/o's urinary incontinence. She states that she feels a pain or pressure and then has a strong urge to use the bathroom and sometimes does not always make it to the bathroom. Status post total hysterectomy-- 4 ovarian cyst about 1992. Denies recent UTI. Denies burning with urination. The patient is on Eliquis and hydrochlorothiazide. Comorbidity diuretic. Discussed trial of Gemtesa we will check kidney and bladder ultrasound. REPLACED BY [facility] Medical History Right ankle swelling Long-term use of immunosuppressant medication Dry skin dermatitis Leg edema Surgical History History of cholecystectomy History of appendectomy History of total abdominal hysterectomy and bilateral salpingo-oophorectomy History of bariatric surgery History of colonoscopy Family History Father Asthma Mother Rheumatoid arthritis Cardiovascular disease Social History Household Members: Family Housing: House Are you a primary caregivers homecare to a significant other at home: No Do you presently have visiting nurse or other home services: Yes (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) Alcohol intake: never Patient Tobacco Use Status: Never used Tobacco Advance Directives Date on File: 02/06/24 service: No Current occupational status: disabled Review of Systems Const All systems reviewed & are unremarkable except as noted in HPI and below Reports no additional complaints Eyes Reports no additional complaints ENT Reports no additional complaints Card Reports no additional complaints Resp Reports no additional complaints GI Reports no additional complaints Reports as per HPI Musc Reports no additional complaints Skin/Breast Reports system reviewed and no additional complaints, except as documented Neuro Reports no additional complaints Psych Reports no additional complaints Endo Reports no additional complaints Manuel/Lymph Reports no additional complaints Aller/Immun Reports no additional complaints Physical Exam Const General: cooperative, healthy appearing and no acute distress Orientation/consciousness: patient oriented x3 HEENT Head: Yes normal to inspection, Yes normocephalic and Yes atraumatic Eyes Conjunctivae: conjunctivae normal Neck Neck: Yes normal visual inspection and Yes trachea midline Chest Chest palpation & inspection: normal inspection of the chest Resp Effort & Inspection: normal respiratory effort Cardio Rate: regular rate GI Inspection: Yes normal to inspection Skin General skin exam: no rashes or lesions noted Neuro General: patient oriented x3 Extrem General: No edema Psych Appearance: grossly normal Results AMB Urinalysis, Automated UA Leukoctes 15 Marcela/uL Last Edit by LEO Tong on 03/20/24 11:21 UA Nitrite Negative Last Edit by LEO Tong on 03/20/24 11:21 UA Urobilinogen 0.2 mg/dL Last Edit by LEO Tong on 03/20/24 11:2 1 UA Protein 15 mg/dL Last Edit by LEO Tong on 03/20/24 11:21 UA pH 5.5 Last Edit by LEO Tong on 03/20/24 11:21 UA Blood 0 Sincere/uL Last Edit by LEO Tong on 03/20/24 11:21 UA Specific [place] 1.025 Last Edit by LEO Tong on 03/20/24 11: 21 UA Ketone Negative Last Edit by LEO Tong on 03/20/24 11:21 UA Bilirubin 0 mg/dL Last Edit by LEO Tong on 03/20/24 11:21 UA Glucose 0 mg/dL Last Edit by LEO Tong on 03/20/24 11:21 Results Reviewed Results Reviewed: Laboratory Last Values Urine pH (Auto) 5.5 03/20/24 11:21 Specific [place] (Auto) 1.025 03/20/24 11:21 Urine Protein (Auto) 15 mg/dL 03/20/24 11:21 Glucose (UA)(Auto) 0 mg/dL 03/20/24 11:21 Urine Ketones (Auto) Negative 03/20/24 11:21 Urine Blood (Auto) 0 Sincere/uL 03/20/24 11:21 Urine Nitrite (Auto) Negative 03/20/24 11:21 Urine Bilirubin (Auto) 0 mg/dL 03/20/24 11:21 Urine Urobilinogen (Auto) 0.2 mg/dL 03/20/24 11:21 Leukocyte Esterase (Auto) 15 Marcela/uL 03/20/24 11:21 Assessment & Plan Assessment & Plan (1) Urinary incontinence: Code(s): R32 - Unspecified urinary incontinence Category: Medical (2) Urinary urgency: Code(s): R39.15 - Urgency of urination Category: Medical (3) Bladder spasms: Code(s): N32.89 - Other specified disorders of bladder Category: Medical Plan renal/bladder US, trial gemtesa 75 mg daily Orders: Orders US retroperitoneal comp Today R32 - Unspecified urinary incontinence, R39.15 - Urgency of urination AMB Urinalysis Automated Today Z13.9 - Encounter for screening, unspecified Medications: New vibegron (Gemtesa) 75 mg PO DAILY 30 tabs 3RF Coding Level of Care Code New Pt Level 4 (60290) Diagnoses Urinary incontinence R32 Urinary urgency R39.15 Bladder spasms N32.89
== END 2024-03-20 12:10 | disposition home or self-care (01) ==
PROVIDERS: PCP Internal Medicine; Visit Provider Urology
DX: R32 Unspecified urinary incontinence (principal); R39.15 Urgency of urination; N32.89 Other specified disorders of bladder; Z13.9 Encounter for screening, unspecified
CPT/HCPCS: 99204

== ENCOUNTER → 2024-03-20 10:59 | Outpatient (BNVA) | payer OTHER, SELFPAY | PROVIDERS: PCP Internal Medicine; Visit Provider Urology | DX: R32 Unspecified urinary incontinence (principal); R39.15 Urgency of urination; N32.89 Other specified disorders of bladder; Z79.01 Long term (current) use of anticoagulants; Z79.899 Other long term (current) drug therapy | CPT/HCPCS: 81003; 99202 ==

== ENCOUNTER 2024-04-05 08:34 | Outpatient (REF) | payer OTHER, SELFPAY ==
--- NOTE | 2024-04-05 08:55 | PFT_ITS ---
Flows: FEV1: 108 % of predicted at 2.05 L FVC: 106 % of predicted at 2.63 L FEV1/FVC: 78 % Bronchodilator response: Absent Volumes: Patient unable to perform lung volumes maneuvers. Diffusion capacity: Moderately decreased, corrects to normal after adjustment for alveolar ventilation. Impression: No obstructive ventilatory defect. No bronchodilator response. Patient unable to perform lung volumes maneuvers. MTDD
== END 2024-04-05 08:35 | disposition home or self-care (01) ==
LOC: HO.RESP 08:34
PROVIDERS: PCP Internal Medicine; Visit Provider Internal Medicine Pulmonary Disease
DX: J45.909 Unspecified asthma, uncomplicated (principal)
CPT/HCPCS: 94010; 94640; 94727; 94729

== ENCOUNTER → 2024-04-18 08:02 | Outpatient (REF) | payer OTHER, SELFPAY ==
--- NOTE | 2024-04-18 08:09 | CA_ITS ---
Transthoracic Echocardiogram Patient (Last, First, Middle): Vicky Craft, Gender: Female Date of : 1945 Age: 79 Procedure Date: 04/18/2024 Procedure Type: Transthoracic Echocardiogram Location: OP Height: 160.02 cm Weight: 75.75 kg BSA: 1.79 m2 Heart Rate: 82 bpm BP: 128 / 72 mmHg Mammography Technician: SB Referring MD: Abdulkadir Saucedo MD Green Chain Puller: Gordo Vera MD Symptoms: I25.10 - Atherosclerotic heart disease of [place] coronary artery without... Study Quality: Adequate ECG Rhythm: Sinus Conclusions: - 1. Normal LV ejection fraction of 60 65% with elevated filling pressures 2. Giwx-ib-eeknuzvy tricuspid regurgitation with normal RV systolic pressure 3. No gross pericardial effusion Findings Left Ventricle Normal left ventricular size, thickness, and systolic function. The visually estimated ejection fraction is between 60-65%. Spectral Doppler is indicative of an impaired relaxation filling pattern. Elevated filling pressures. E/E prime ratio is >15, consistent with elevated filling pressures. Wall Motion Rest Echo Findings The inferoseptal wall and basal inferior segment are hypokinetic. All other scored wall segments showed normal motion. Right Ventricle Normal right ventricular cavity size and systolic function. Atria The left atrium is normal in size. Interatrial shunt cannot be excluded. The right atrium is likely dilated. Aortic Valve There is mild calcification of the aortic valve. There is mild thickening of the aortic valve. There is no aortic valve stenosis. There is no aortic valve regurgitation. Mitral Valve There is mild anterior and posterior mitral leaflet thickening. There is mild anterior and mild posterior mitral annular calcification. There is mild mitral annular calcification. There is trace mitral valve regurgitation. There is no mitral valve stenosis. Pulmonic Valve The pulmonic valve is likely normal. Tricuspid Valve Normal tricuspid valve structure. There is mild to moderate tricuspid valve regurgitation. The right ventricular systolic pressure is normal. The right ventricular systolic pressure is 29 mmHg. Normal right atrial pressure. There is no evidence of pulmonary hypertension. Great Vessels The pulmonary artery was not well visualized. There is no dilatation of the ascending aorta measuring 3.30 cm. Small plaque is seen in the sino tubular ridge. Venous The inferior vena cava is normal in size and collapses greater than 50% with inspiration. Pericardium/Pleural There is no evidence of pericardial effusion. Prior Study Comparison Changes noted compared to prior study dated: 02/25/2020. LV systolic function has improved. Pericardial effusion is not seen Measurements 2D Linear Measurements IVSd: 0.70 0.6-0.9/0.6-1.0 cm LVIDd: 4.93 3.9-5.3/4.2-5.9 cm LVIDd Index: 2.75 2.4-3.2/2.2-3.1 cm/m2 LVIDs: 3.31 2.0-3.6 cm LVPWd: 0.91 0.7-1.1 cm LA Diam: 3.50 2.7-3.8/3.0-4.0 cm LAIDs Index: 1.96 1.5-2.3 cm/m2 LV Mass: 167.10 67-162/88-224 g LV Mass Index: 93.35 43-95/49-115 g/m2 LVOT Diam: 2.10 3.0+(-)1.3 cm 2D Systolic Function EF 4C: 56.40 >55% EF 2C: 64.60 >55% EF BiP: 60.30 >55% Mitral Valve MV Pk E: 0.46 MV PK A: 1.11 MV Decel Time: 242.00 E/A: 0.40 E'Lateral: 3.37 E'Medial: 2.50 E/E' Med: 18.50 E/E' Lat: 13.70 PHT: 71.00 MVA PHT: 3.10 Decel [place]: 1.91 Aortic Valve AoV Pk [place]ienvenido: 0.78 AoV Pk Grad: 2.00 LYNN: 2.84 LVOT LVOT Pk [place]ien[place]ido: 0.71 LVOT Mn [place]: 0.47 LVOT VTI: 0.13 LVOT Pk Grad: 2.00 LVOT Mn Grad: 1.00 LVOT Diam: 2.10 LVOT Area: 3.46 Diastolic Function MV Pk E: 0.46 MV Pk A: 1.11 E/A: 0.40 E'Medial: 2.50 E/E' Med: 18.50 E' Laterial: 3.37 E/E' Lat: 13.70 Right Ventricle TAPSE (mm): 18.10 TVS' Bienvenido: 14.60 Tricuspid Valve TR Pk Bienvenido: 2.57 TR Pk Grad: 26.00 RA Press: 3.00 RVSP: 29.00 Great Vessels Aorta Sinus of Valsalva: 3.40 2.0-3.5 cm Ao Asc: 3.30 2.1-3.4 cm Pulmonary Valve PV Pk Bienvenido: 0.60 Peak PV Grad: 1.00 Updated in Other Vendor System with Status of Final Gordo Vera MD electronically signed on 04/19/2024 10:09:39 AM with status of Final
--- NOTE | 2024-04-18 08:09 | HM_ITS ---
Conclusion: 1. Patient was monitored for total period of 6 days and 7 hours 2. Baseline was normal sinus rhythm with average heart of 77 beats per minute 3. No significant pauses noted 4. Rare ectopy noted, with short bursts of SVT, longest 13 beats 5. No patient reported events MTDD
== END ==
LOC: HO.CARD 08:02
PROVIDERS: PCP Internal Medicine; Visit Provider Internal Medicine
DX: I25.10 Atherosclerotic heart disease of native coronary artery without angina pectoris (principal); R00.2 Palpitations; J45.909 Unspecified asthma, uncomplicated; Z91.09 Other allergy status, other than to drugs and biological substances
CPT/HCPCS: 93242; 93306; 99212

== ENCOUNTER → 2024-04-18 08:09 | Outpatient (BNV) | payer OTHER, SELFPAY | PROVIDERS: PCP Internal Medicine; Visit Provider Internal Medicine Cardiovascular Disease | DX: I36.1 Nonrheumatic tricuspid (valve) insufficiency (principal); I34.81 Nonrheumatic mitral (valve) annulus calcification | CPT/HCPCS: 93306 ==

== ENCOUNTER 2024-04-18 13:28 | Outpatient (AMB) | payer OTHER, SELFPAY ==
[2024-04-18 13:36] VITALS: BP 129/78; PULSE 68; O2SAT 99; BMI 29.1
--- NOTE | 2024-04-18 13:36 | A.OFFVIS_ITS ---
Vital Signs 04/18/24 13:36 Height 5 ft 3 in Weight 164 lb 7.184 oz BMI 29.1 BP 129/78 Blood Pressure Location Rt brachial Position Sitting Pulse 68 Pulse Source Doppler Pulse Oximetry (%) 99 Oxygen Delivery Method Room Air Intake Visit Reasons: Asthma Allergies BERNADETTE Inhibitors Allergy (Severe, Verified 03/20/24 11:10) Angioedema Iodinated Contrast Media [CONTRAST, IV] Allergy (Intermediate, Verified 03/20/24 11:10) SWELLING, ITCHINESS, RASH Penicillins [PENICILLINS] Allergy (Intermediate, Verified 03/20/24 11:10) ITCHINESS, RASH, SWELLING latex Allergy (Verified 03/20/24 11:10) Hives Sulfa (Sulfonamide Antibiotics) Allergy (Verified 03/20/24 11:10) Unknown zoledronic acid [From Reclast] Adverse Reaction (Verified 03/20/24 11:10) Joint Pain HPI HPI Asthma: Details: 79-year-old lady, nonsmoker, followed for underlying mild asthma. At last office visit patient was started on Breo, but she was not able to tolerated. She denies recent exacerbations. She completed her immunologic workup showing mild eosinophilia, however negative RAST panel. [facility] Medical History Right ankle swelling Long-term use of immunosuppressant medication Dry skin dermatitis Leg edema Surgical History History of cholecystectomy History of appendectomy History of total abdominal hysterectomy and bilateral salpingo-oophorectomy History of bariatric surgery History of colonoscopy Family History Father Asthma Mother Rheumatoid arthritis Cardiovascular disease Social History Household Members: Family Housing: House Are you a primary hemodialysis patient care specialist to a significant other at home: No Do you presently have visiting nurse or other home services: Yes (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) Alcohol intake: never Patient Tobacco Use Status: Never used Tobacco Advance Directives Date on File: 02/06/24 service: No Current occupational status: disabled Review of Systems Const Denies daytime sleepiness, Denies excessive sweating, Denies fatigue, Denies fever(s), Denies lethargy, Denies malaise, Denies night sweats, Denies snoring and Denies weight loss Eyes Denies blurry vision and Denies itchy eyes ENT Denies nasal congestion, Denies post nasal drip, Denies sinus pain, Denies sinus pressure and Denies other ( Thrush) Card Denies chest pain, Denies pedal edema, Denies dyspnea, Denies orthopnea and Denies paroxysmal nocturnal dyspnea Resp Denies cough, Denies hemoptysis, Denies excessive phlegm production, Denies dyspnea, Denies snoring and Denies wheezing GI Denies abdominal pain and Denies heartburn Musc Denies myalgias, Denies arthralgias and Denies joint swelling Skin/Breast Denies rash Neuro Denies memory loss and Denies seizure-like activity Psych Denies abnormal sleep pattern, Denies anxiety and Denies memory loss Endo Denies excessive sweating, Denies fatigue and Denies heat intolerance Manuel/Lymph Denies easy bruising Aller/Immun Denies itchy eyes, Denies seasonal rhinorrhea and Denies wheezing Physical Exam Vital Signs: Last Vital Signs Pulse 68 04/18/24 13:36 BP 129/78 04/18/24 13:36 Pulse Ox 99 04/18/24 13:36 Oxygen Delivery Method Room Air 04/18/24 13:36 BMI result Body Mass Index 29.1 Const General: no acute distress and alert Nutritional Appearance: not obese Orientation/consciousness: Other orientation findings ( oriented) HEENT Head: Yes atraumatic Eyes General: appearance normal, both eyes and all related structures Sclerae: sclerae normal EOM: EOMs intact bilaterally Neck Neck: Yes supple Lymphatic: no lymphadenopathy noted Resp Effort & Inspection: normal respiratory effort and no use of accessory muscles Auscultation: clear to auscultation bilaterally Cardio Rate: regular rate Rhythm: regular rhythm Heart sounds: no gallops, no murmurs and no rubs Skin General skin exam: other ( warm) Extrem General: No clubbing, No cyanosis and No edema Assessment & Plan Assessment & Plan (1) Asthma: Code(s): J45.909 - Unspecified asthma, uncomplicated Category: Medical Plan: Unable to tolerate Breo. Continue albuterol MDI. Results of pulmonary function test reviewed, normal spirometry, decreasing DLCO is likely artificial. (2) Environmental allergies: Code(s): Z91.09 - Other allergy status, other than to drugs and biological substances Category: Medical Plan: Results of immunologic testing reviewed. Mild eosinophilia, but with negative RAST. If symptoms worsened, may consider Dupixent. Medications: Changed From albuterol sulfate 90 mcg/actuation (ProAir HFA) 2 puffs inhalation Q4H PRN Asthma To albuterol sulfate 90 mcg/actuation 2 puffs inhalation Q4H PRN 1 ea 6RF Asthma Discontinued fluticasone furoate-vilanterol 200-25 mcg/dose (Breo Ellipta) Discontinued Reason: Doctor's Order 1 inh inhalation DAILY 60 ea 6RF J45.909 - Unspecified asthma, uncomplicated Coding Level of Care Code Est Pt Level 4 (73303) Diagnoses Asthma J45.909 Environmental allergies Z91.09
== END 2024-04-18 13:59 | disposition home or self-care (01) ==
PROVIDERS: PCP Internal Medicine; Visit Provider Internal Medicine Pulmonary Disease
DX: J45.909 Unspecified asthma, uncomplicated (principal); Z91.09 Other allergy status, other than to drugs and biological substances
CPT/HCPCS: 99214

== ENCOUNTER 2024-04-28 10:36 | Outpatient (REF) | payer OTHER, SELFPAY | END 2024-04-28 10:37 | disposition home or self-care (01) | LOC: HO.US 10:36 | PROVIDERS: PCP Internal Medicine; Visit Provider Urology | DX: R32 Unspecified urinary incontinence (principal); R39.15 Urgency of urination | CPT/HCPCS: 76770 ==

== ENCOUNTER → 2024-04-28 10:37 | Outpatient (BNV) | payer OTHER, SELFPAY | PROVIDERS: PCP Internal Medicine; Visit Provider Radiology Diagnostic Radiology | DX: R32 Unspecified urinary incontinence (principal) | CPT/HCPCS: 76770 ==

== ENCOUNTER 2024-05-05 11:55 | Outpatient (REF) | payer OTHER, SELFPAY ==
--- NOTE | ~2024-05-05 | MM_ITS ---
EXAMINATION: MM SCREENING DIGITAL BREAST TOMOSYNTHESIS, BILATERAL CLINICAL INFORMATION: Screening. Asymptomatic. COMPARISON: Mammography: Comparison is made with available priors TECHNIQUE: Digital breast mammography with tomosynthesis is performed in both the craniocaudal and mediolateral oblique views along with computer-aided detection (CAD). FINDINGS: There are scattered areas of fibroglandular density (ACR BI-RADS breast composition Category b). There are no significant masses, abnormal calcifications, or other abnormalities. MM/MM tomosynthesis screening BI IMPRESSION: No mammographic evidence of malignancy. ASSESSMENT: BI-RADS BI-RADS 1 - Negative RECOMMENDATION: Routine annual mammography screening. 1 year F/U This examination should not preclude the clinical evaluation of a suspicious palpable abnormality. This patient's information was entered into a reminder system with a target due date for their next mammogram. Electronically signed by: Leatha Victor DO 05/09/2024 05:11 PM [facility]
--- OUTSIDE RECORDS SUMMARY | 2024-05-07 15:22 | XMS_ITS | Data Portability ---
Author Organization [employer] Address [address] [place] [address] Care Team Providers Care Synthetic Chemist Name Role Phone [facility] Referring Provider [phone] [facility] Referring Provider Assessment Encounter Date Assessment Date Assessment LastModified by Organization Details LastModified Time 11/17/2022 11/17/2022 I have reviewed and agree with the assessment and plan as documented by the health technician hearing. I provided real-time medical direction for this encounter and was immediately available to provide additional phone-based assistance as needed. 77F with history of back pain, no trauma. Pt with worsening pain, difficulty with transferring. Pt on coumadin. Vitals stable. Back exam reveals no obvious swelling. No midline tenderness. Pt without obvious weakness. No neurological deficits. Suspect musculoskeletal back pain. Recommend Tylenol regularly q 8 Lidocaine patches Heat pads Red flags discussed and return precautions reviewed. paysola Not available 11/17/2022 11:57:20 Plan of Treatment Reminders Order Date Submit Date Provider Last Modified By Organization Details Last Modified Time Details Appointments None recorded. Lab None recorded. Referral None recorded. Procedures None recorded. Surgeries None recorded. Imaging None recorded. Medication Orders lidocaine 5 % topical patch [address] [facility][id number], [address] [facility] [place], [address], 11:57:27 Patient TargetsNo targets recorded. Patient InstructionsNo instructions recorded. Reason for Referral None Reported. Medical Equipment None Reported. Allergies Allergen ID Allergen Name Allergen Category Reaction Reaction Severity Criticality Documentation Date Start Date Code Code System Note Provider Name and Address Organization Details Recorded Time 9809 Medicinal product containin g penicilli n and acting as antibacte rial agent (product) medicatio n Not available Not available Not available 03/25/2024 32871 05 SNOMED Not Available [facility] - [facility] 4 03:47:43 Medications Name Sig Start Date Stop Date Status Note LastModified by Organization Details LastModified Time multivitamin tablet TAKE 1 TABLET BY MOUTH EVERY DAY WITH FOOD active Not Available Not Available No t Available loperamide 2 mg capsule TAKE 1 CAPSULE BY MOUTH EVERY 4 HOURS NEEDED FOR DIARRHEA active Not Available Not Available No t Available senna 8.6 mg tablet TAKE 1 TABLET BY MOUTH AT BEDTIME FOR CONSTIPATIO N active Not Available Not Available No t Available ondansetron HCl 4 mg tablet TAKE 1 TABLET BY MOUTH EVERY 8 HOURS NEEDED FOR NAUSEA OR FOR VOMITING FOR UP TO 7 DAYS active Not Available Not Available No t Available alendronate 70 mg tablet TAKE 1 TABLET BY MOUTH EVERY WEEK active Not Available Not Available No t Available prednisone 5 mg tablet TAKE 1 TABLET BY MOUTH EVERY DAY active Not Available Not Available No t Available warfarin 4 mg tablet TAKE 1 TABLET BY MOUTH EVERY SUNDAY,, & SUNDAY AT 6PM active Not Available Not Available No t Available warfarin 3 mg tablet TAKE 1-3 TABLETS BY MOUTH DAILY PER COUMADIN CLINIC RECOMMENDAT IONS active Not Available Not Available No t Available lorazepam 0.5 mg tablet TAKE 1 TABLET BY MOUTH ONCE A DAY NEEDED FOR SEVERE ANXIETY. UP TO 10 TIMES PER MONTH. active Not Available Not Available N ot Available methotrexate sodium 2.5 mg tablet TAKE 4 TABLETS (10 MG) BY MOUTH EVERY WEEK active Not Available Not Available No t Available temazepam 30 mg capsule TAKE 1 CAPSULE BY MOUTH AT BEDTIME NEEDED FOR INSOMNIA active Not Available Not Available No t Available Mapap (acetaminoph en) 500 mg capsule TAKE 1 CAPSULE (500 MG) BY MOUTH EVERY 8 (EIGHT) HOURS. active Not Available Not Available No t Available meclizine 25 mg tablet TAKE 1 TABLET (25 MG) BY MOUTH IF NEEDED IN THE MORNING, AT NOON, AND AT BEDTIME FOR DIZZINESS. active Not Available Not Available N ot Available pantoprazole 40 mg tablet,delay ed release TAKE 1 TABLET BY MOUTH EVERY DAY active Not Available Not Available No t Available lidocaine 5 % topical patch active Not Available Not Available Not Available folic acid 1 mg tablet TAKE 1 TAB BY MOUTH DAILY active Not Available Not Available No t Available pravastatin 20 mg tablet TAKE 1 TABLET BY MOUTH EVERYDAY AT BEDTIME active Not Available Not Available No t Available clotrimazole 1 % topical cream APPLY TO AFFECTED + SURROUNDING AREAS TWICE A DAY IN THE MORNING AND IN THE EVENING active Not Available Not Available No t Available hydrocortiso ne 1 % topical cream with perineal applicator active Not Available Not Available N ot Available duloxetine 60 mg capsule,ascencion yed release TAKE 1 CAPSULE BY MOUTH EVERY DAY active Not Available Not Available No t Available hydrochlorot hiazide 12.5 mg tablet TAKE 1 TABLET BY MOUTH EVERY DAY active Not Available Not Available No t Available diclofenac 1 % topical gel APPLY 4 GRAMS TOPICALLY 2 TIMES DAILY. active Not Available Not Available No t Available cholecalcife rol (vitamin D3) 50 mcg (2,000 unit) capsule TAKE 1 CAPSULE BY MOUTH EVERY DAY active Not Available Not Available No t Available Antiseptic Skin Cleanser (chlorhexidi ne) 4 % liquid CLEAN FEET TWICE A DAY active Not Available Not Available Not Available Kevzara 150 mg/1.14 mL subcutaneous pen injector active Not Available Not Available Not Available Paxlovid 300 mg (150 mg x 2)-100 mg tablets in a dose pack TAKE 3 TABLETS BY MOUTH TWICE A DAY FOR 5 DAYS active Not Available Not Available No t Available Vitals Date Recorded Respiratory rate Heart rate Body temperature Oxygen saturation Oxygen saturation in Arterial blood by Pulse oximetry Systolic blood pressure Diastolic blood pressure Provider Name and Address Organization Details Last Updated DateTime 3 16 /min 76 /min 98.1 [degF] 99 % 99 % 148 mm[Hg] 84 mm[Hg] Not Available [facility] production 3 11:51:29 Social History None recorded. Functional Status None recorded. Mental Status None recorded. Family History Nothing Reported. Medical History No medical history recorded. Gynecological HistoryNo gynecological history recorded. Obstetrics History GPAL:G 0 P 0 0 0 0 Past Encounters Encounter ID Performer Location Encounter Start Date Encounter Closed Date Diagnosis/Indication Diagnosis SNOMED-CT Code Diagnosis ICD10 Code [id number] Diana Padilla MD Main - [facility] [address] [place] [address] 11/17/2022 11:51:27 11/18/2022 13:00:39 Low back pain 736859188 M54.50 Health Concerns Section Related Observation LastModified by Organization Detai ls LastModified Time None Recorded Concern Status LastModified by Organization Details LastModified Time None Recorded Advance Directives Directive None Recorded Payers Encounter Date Sequence Insurance Name Policy Number Policy Carter Covered Member ID Carter Member ID Guarantor Name 11/17/2022 1 [facility] - DOS ON OR AFTER 2022 - DUAL ELIGIBLE - JAIL OPTIONS AND ONE CARE (MEDICARE REPLACEMENT/ADV ANTAGE - HMO) Vicky Craft [id number] Vickychina Craft Notes Date Note Type Note Provider Name and Address Organization Details Recorded Time 11/17/2022 text/html HPI: DX of rheumatoid arthritis , chronic midline low back pain without sciatica. Pt reports middle back pain radiates to right hip and side of abdomen. Pt almost fell two weeks ago and braced herself from the fall. Pain has occurred ever since mainly in the right hip side. Pt walking with a limp and transfers out of bed very painful. ................. ................. ................. ................. ................. ................. ................. ................. ..... [facility] Nursing Assessment: Comments: Attempted to call member for further info < was unable to reach member Diana Padilla MD [address] [facility],[address], [place], [address], [employer] 11/17/2022 11:57:38 OBGyn Episode No OBEpisode recorded.
--- OUTSIDE RECORDS SUMMARY | 2024-05-07 15:22 | XMS_ITS | Patient Health Record ---
Author Organization [facility] Address [address] [place] [phone] Care Team Providers Care Sap Consultant Name Role Phone Tolu Ortiz MD, Erik Primary Care Provide r Jorge Mitchell Jr Unavailable [phone] ALLERGIES Allergen (clinical drug ingredient) Drug/Non Drug Allergy documented on EMR Reaction Allergy Type Onset Date Status Penicillin Unknown Drug Allergy Active Substance with sulfonamide structure and antibacterial mechanism of action (substance) Sulfa Antibiotics Unknown Drug Allergy Active zoledronic acid Reclast Unknown Drug Allergy A ctive IV DYE (uncoded) Unknown Allergy Act mirna Latex latex (uncoded) Unknown Allergy Acti ve REASON FOR REFERRAL No Information MEDICATIONS Medication SIG (Take, Route, Frequency, Duration) Notes Start Date End Date Status Multivitamin - Oral for 90 Act mirna Metoprolol Succinate ER 50 MG Oral for 90 Active DULoxetine HCl 60 MG TAKE 1 CAPSULE BY MOUTH EVERY MORNING Oral for 30 Active Temazepam 30 MG TAKE 1 CAPSULE BY MOUTH AT BEDTIME NEEDED FOR SLEEP Oral for 30 Active D3 Super Strength 50 MCG (2000 UT) Oral for 90 Active B-12 1000 MCG Oral for 90 Acti ve Albuterol Sulfate HFA 108 (90 Base) MCG/ACT 1 puff as needed Inhalation every 4 hrs Active hydroCHLOROthiazide 12.5 MG Oral for 90 Active Atorvastatin Calcium 20 MG TAKE 1 TABLET BY MOUTH AT BEDTIME Oral for 30 E782,Unavaila ble Active Omeprazole 40 MG 1 capsule 1/2 to 1 hour before morning meal Orally Once a day for 30 day(s) 03/12/2024 Active Simvastatin 10 MG Oral for 90 Active Leflunomide 20 MG TAKE 1 TABLET BY MOUTH EVERY DAY Oral for 90 Active Eliquis 5 MG TAKE 1 TABLET BY MOUTH TWICE DAILY Oral for 30 Active IMMUNIZATIONS Vaccine Route Administration Date Status Comme nts Influenza Unknown 02/27/2024 Administered SOCIAL HISTORY Tobacco Use: Social History Observation Description Date Details (start date - stop date) Never Smoker NA - NA Sex Assigned At : Social History Observation Description Sex Assigned At Unknown Tobacco Use/Smoking Question Answer Notes Patient is a nonsmoker Alcohol Screen Question Answer Notes Did you have a drink containing alcohol in the p ast year? No Points 0 Interpretation Negative PROBLEMS Problem Type ICD Code Onset Dates Problem Status W/U Status Risk SNOMED Code Notes Problem Epigastric pain (R10.13) Active confirmed [id number] VITAL SIGNS Temperature 98.0 degrees Fahrenheit 03/12/2024 Blood pressure diastolic 00 mm Hg 03/12/2024 Height 5 ft 3 in in 03/12/2024 Blood pressure systolic 000 mm Hg 03/12/2024 Weight 167 lb 2 oz lbs 03/12/2024 BMI 29.60 kg/m2 03/12/2024 Encounters Encounter Location Date Provider Diagnosis [facility] [address] [facility] [address] [place] [phone] 03/12/2024 Jorge Baldwin Jr Epigastric pain R10.13 ASSESSMENTS Encounter Date Diagnosis Assessment Notes Treatment Notes Treatment Clinical Notes 03/12/2024 Epigastric pain (ICD-10 - R10.13) Abdominal pain material was printed PLAN OF TREATMENT Next Appt Details Provider Name:Jorge salazar Jr, 09/22/2024 11:10:00 AM, [address] [place] [address], [address], [place], [address], Insurance Providers Payer Name Payer Address Payer Phone Subscriber Number Group Number Insured Name Patient Relationship to Insured Coverage Start Date Coverage End Date [facility] [address] Attn Claims SHYANNE Stubbs [id number] KAYLIE OROZCO Self - patient is the insured MEDICAL (GENERAL) HISTORY Medical History History ICD Code Asthma Hypertension Rheumatoid arthritis Osteoarthritis Fibromyalgia Irritable bowel syndrome Pulmonary embolism Surgical History Surgery Date(Month/Year) gastric bypass 2000 Appendectomy Cholecystectomy Hysterectomy
--- OUTSIDE RECORDS SUMMARY | 2024-05-07 15:22 | XMS_ITS ---
Author Organization [facility] Address [address] [place] [phone] Care Team Providers Care Executive Candidate Developer Name Role Phone Tolu Ortiz MD, Erik Primary Care Provide r Jorge Mitchell Jr Unavailable ALLERGIES Allergen (clinical drug ingredient) Drug/Non Drug Allergy documented on EMR Reaction Allergy Type Onset Date Status Penicillin Unknown Drug Allergy Active Substance with sulfonamide structure and antibacterial mechanism of action (substance) Sulfa Antibiotics Unknown Drug Allergy Active zoledronic acid Reclast Unknown Drug Allergy A ctive IV DYE (uncoded) Unknown Allergy Act mirna Latex latex (uncoded) Unknown Allergy Acti ve REASON FOR VISIT Patient presents today for consultation MEDICATIONS Medication SIG (Take, Route, Frequency, Duration) Notes Start Date End Date Status D3 Super Strength 50 MCG (2000 UT) Oral for 90 Active B-12 1000 MCG Oral for 90 Acti ve hydroCHLOROthiazide 12.5 MG Oral for 90 Active DULoxetine HCl 60 MG TAKE 1 CAPSULE BY MOUTH EVERY MORNING Oral for 30 Active Temazepam 30 MG TAKE 1 CAPSULE BY MOUTH AT BEDTIME NEEDED FOR SLEEP Oral for 30 Active Atorvastatin Calcium 20 MG TAKE 1 TABLET BY MOUTH AT BEDTIME Oral for 30 E782,Unavaila ble Active Leflunomide 20 MG TAKE 1 TABLET BY MOUTH EVERY DAY Oral for 90 Active Eliquis 5 MG TAKE 1 TABLET BY MOUTH TWICE DAILY Oral for 30 Active Multivitamin - Oral for 90 Act mirna Metoprolol Succinate ER 50 MG Oral for 90 Active Albuterol Sulfate HFA 108 (90 Base) MCG/ACT 1 puff as needed Inhalation every 4 hrs Active Omeprazole 40 MG 1 capsule 1/2 to 1 hour before morning meal Orally Once a day for 30 day(s) 03/12/2024 Active Simvastatin 10 MG Oral for 90 Active SOCIAL HISTORY Tobacco Use: Social History Observation [...] Notes Problem Epigastric pain (R10.13) Active confirmed [id number] VITAL SIGNS BMI 29.60 kg/m2 03/12/2024 Blood pressure systolic 000 mm Hg 03/12/20 24 Blood pressure diastolic 00 mm Hg 024 Height 5 ft 3 in in 03/12/2024 Temperature 98.0 degrees Fahrenheit 03/12/20 24 Weight 167 lb 2 oz lbs 03/12/2024 Encounters Encounter Location Date Provider Diagnosis [facility] [address] [place] [phone] 03/12/2024 Jorge Baldwin Jr Epigastric pain R10.13 ASSESSMENTS Encounter Date Diagnosis Assessment Notes Treatment Notes Treatment Clinical Notes 03/12/2024 Epigastric pain (ICD-10 - R10.13) Abdominal pain material was printed PLAN OF TREATMENT Medication Medication Name Sig Start Date Stop Date Notes Omeprazole 40 MG 1 capsule 1/2 to 1 h our before morning meal Orally Once a day for 30 day(s) 03/12/2024 Treatment Notes Assessment Notes Epigastric pain Abdominal pain mater ial was printed Next Appt Details Follow Up: 1 Year, Reason: Provider Name:Jorge salazar Jr, 09/22/2024 11:10:00 AM, [address], [address], [place], [address], Progress Notes * Examination Category Sub-Category Detail Notes General Examination GENERAL APPEARANCE: in no ac clemente distress HEAD: normocephalic EYES: sclera non-icteric NECK/THYROID: no lymphadenopathy HEART: S1, S2 normal, no mu rmurs CHEST: normal shape and exp ansion LUNGS: clear to auscultatio n bilaterally ABDOMEN: soft, nontender, non distended, bowel sounds present, no organomegaly SKIN: anicteric EXTREMITIES: no clubbing, cyanosi s, or edema PSYCH: cognitive function i ntact ORAL CAVITY: mucosa moist
== END 2024-05-05 11:56 | disposition home or self-care (01) ==
LOC: HO.MAMMO 11:55
PROVIDERS: PCP Internal Medicine; Visit Provider Internal Medicine
DX: Z12.31 Encounter for screening mammogram for malignant neoplasm of breast (principal)
CPT/HCPCS: 77063; 77067

== ENCOUNTER → 2024-05-05 12:00 | Outpatient (BNV) | payer OTHER, SELFPAY | PROVIDERS: PCP Internal Medicine; Visit Provider Internal Medicine | DX: Z12.31 Encounter for screening mammogram for malignant neoplasm of breast (principal) | CPT/HCPCS: 77063; 77067 ==

== ENCOUNTER 2024-05-22 13:04 | Outpatient (AMB) | payer OTHER, SELFPAY ==
--- NOTE | 2024-05-22 13:05 | MHC.OFFVIS ---
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: No Accompanied by: Daughter Allergies BERNADETTE Inhibitors Allergy (Severe, Verified 05/22/24 13:19) Angioedema Iodinated Contrast Media [CONTRAST, IV] Allergy (Intermediate, Verified 05/22/24 13:19) SWELLING, ITCHINESS, RASH Penicillins [PENICILLINS] Allergy (Intermediate, Verified 05/22/24 13:19) ITCHINESS, RASH, SWELLING latex Allergy (Verified 05/22/24 13:19) Hives Sulfa (Sulfonamide Antibiotics) Allergy (Verified 05/22/24 13:19) Unknown zoledronic acid [From Reclast] Adverse Reaction (Verified 05/22/24 13:19) Joint Pain Medication List - Last Reconciled 05/22/24 by Kisha Blair MD acetaminophen (Mapap (acetaminophen)) 500 mg PO DAILY albuterol sulfate 90 mcg/actuation 2 puffs inhalation Q4H PRN apixaban (Eliquis) 5 mg PO BID atorvastatin 20 mg PO BEDTIME cholecalciferol (vitamin D3) 50 mcg PO DAILY cyanocobalamin (vitamin B-12) 1,000 mcg sublingual DAILY duloxetine 60 mg PO DAILY hydrochlorothiazide 12.5 mg PO DAILY leflunomide 20 mg PO DAILY lorazepam 0.5 mg PO DAILY PRN metoprolol succinate ER 50 mg PO DAILY mirabegron ER (Myrbetriq) 50 mg PO DAILY multivitamin 1 tab PO DAILY temazepam 30 mg PO BEDTIME PRN HPI Comments Details: 05/22/24--Vicky is here for follow up urinary incontinence. Last seen on 03/20/24-started on Gemtesa, sent for US renal/bladder 04/28/24--discussed within normal limits. The patient is here with her daughter who interprets for her. She states that they were unable to get the Gemtesa as it required a prior authorization. She states her mother still has a problem with the urgency and urine incontinence. Discussed avoid dietary bladder irritants cut back on caffeine intake. I will send Myrbetriq 50 mg and schedule a 2 month follow-up to review changes with urinary symptoms. Review of chart: 03/20/24--Vicky is here for c/o's urinary incontinence. She states that she feels a pain or pressure and then has a strong urge to use the bathroom and sometimes does not always make it to the bathroom. Status post total hysterectomy-- 4 ovarian cyst about 1992. Denies recent UTI. Denies burning with urination. The patient is on Eliquis and hydrochlorothiazide. Comorbidity diuretic. Discussed trial of Gemtesa we will check kidney and bladder ultrasound. [facility] Medical History Right ankle swelling Long-term use of immunosuppressant medication Dry skin dermatitis Leg edema Surgical History History of cholecystectomy History of appendectomy History of total abdominal hysterectomy and bilateral salpingo-oophorectomy History of bariatric surgery History of colonoscopy Family History Father Asthma Mother Rheumatoid arthritis Cardiovascular disease Social History Household Members: Family Housing: House Are you a primary family day care provider to a significant other at home: No Do you presently have visiting nurse or other home services: Yes (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) Alcohol intake: never Patient Tobacco Use Status: Never used Tobacco Advance Directives Date on File: 02/06/24 service: No Current occupational status: disabled Review of Systems Const All systems reviewed & are unremarkable except as noted in HPI and below Reports no additional complaints Eyes Reports no additional complaints ENT Reports no additional complaints Card Reports no additional complaints Resp Reports no additional complaints GI Reports no additional complaints Reports as per HPI Musc Reports no additional complaints Skin/Breast Reports system reviewed and no additional complaints, except as documented Neuro Reports no additional complaints Psych Reports no additional complaints Endo Reports no additional complaints Manuel/Lymph Reports no additional complaints Aller/Immun Reports no additional complaints Office Procedures Post Void Residual Post Residual Void Post Void Residual (PVR): 0 35403-Obvt Void Residual by ultrasound Results AMB Urinalysis, Automated UA Leukoctes 0 Marcela/uL Last Edit by Iesha Wilson CMA on 05/22/24 13:21 UA Nitrite Negative Last Edit by Iesha Wilson CMA on 05/22/24 13:21 UA Urobilinogen 0.2 mg/dL Last Edit by Iesha Wilson CMA on 05/22/24 13:21 UA Protein 15 mg/dL Last Edit by Iesha Wilson, TOM on 05/22/24 13:21 UA pH 5.5 Last Edit by Iesha Wilson CMA on 05/22/24 13:21 UA Blood 0 Sincere/uL Last Edit by Iesha Wilson, TOM on 05/22/24 13:21 UA Specific [place] 1.030 Last Edit by Iesha Wilson, TOM on 05/22/24 13:21 UA Ketone Negative Last Edit by Iesha Wilson CMA on 05/22/24 13:21 UA Bilirubin 1 mg/dL Last Edit by Iesha Wilson CMA on 05/22/24 13:21 UA Glucose 0 mg/dL Last Edit by Iesha Wilson CMA on 05/22/24 13:21 Results Reviewed Results Reviewed: Date of Service: 04/28/24 Procedure(s): US retroperitoneal comp Accession Number(s): [id number] cc: Kisha Blair MD; Erik Farrar MD~ EXAMINATION: US RETROPERITONEAL COMPLETE (RENAL) CLINICAL INFORMATION: Unspecified urinary incontinence. COMPARISON: CT abdomen and pelvis 02/02/2022. X-ray abdomen KUB 04/01/2019. TECHNIQUE: Real-time imaging of the kidneys and bladder. FINDINGS: RIGHT KIDNEY: 8.8 x 3.7 x 4.2 cm (SAG x AP x TRV). The kidney is normal in size, contour, and echogenicity. Renal cortical thickness is normal. No calculi or focal parenchymal lesions. No hydronephrosis. LEFT KIDNEY: 9.0 x 4.1 x 6.1 cm (SAG x AP x TRV). The kidney is normal in size, contour, and echogenicity. Renal cortical thickness is normal. No calculi or focal parenchymal lesions. No hydronephrosis. BLADDER: Well distended and normal. Bilateral ureteral jets are not demonstrated. Prevoid bladder volume is 206.13 mL. There is no postvoid residual. IMPRESSION: Normal examination of the kidneys and urinary bladder.. Assessment & Plan Assessment & Plan (1) Urinary incontinence: Code(s): R32 - Unspecified urinary incontinence Category: Medical (2) Urinary urgency: Code(s): R39.15 - Urgency of urination Category: Medical (3) Bladder spasms: Code(s): N32.89 - Other specified disorders of bladder Category: Medical Plan Myrbetriq 50 mg daily. Discussed avoid dietary bladder irritants cut back on caffeine intake. Orders: Orders AMB Urinalysis Automated Today Z13.9 - Encounter for screening, unspecified AMB Post Void Residual by ultrasound Today R39.15 - Urgency of urination Medications: New mirabegron ER (Myrbetriq) 50 mg PO DAILY 90 tabs 3RF Discontinued vibegron (Gemtesa) Discontinued Reason: Doctor's Order 75 mg PO DAILY 30 tabs 3RF Patient Instructions: The patient had an opportunity to ask questions regarding treatment plan. The patient expressed understanding and agreement with the above treatment plan. The patient is aware they should contact our office by phone for worsening of their current condition or the appearance of new symptoms. Compliance is encouraged with any medications and followup testing that is ordered. It is a privilege to be allowed the opportunity to participate in the urologic care of your patient. If you have any questions or concerns regarding treatment for the above conditions please do not hesitate to contact me. The office telephone contact is [phone]. This note is constructed in part using voice recognition software. While every effort has been made to ensure accuracy dermatopathologist errors may have been included. Yours sincerely, Kisha Blair MD Coding Level of Care Code Est Pt Level 4 (74676) Diagnoses Urinary incontinence R32 Urinary urgency R39.15 Bladder spasms N32.89 CPT Codes Post Residual Void - PVR CPT Code: 58841-Oopg Void Residual by ultrasound ([id number])
== END 2024-05-22 13:27 | disposition home or self-care (01) ==
PROVIDERS: PCP Internal Medicine; Visit Provider Urology
DX: R32 Unspecified urinary incontinence (principal); R39.15 Urgency of urination; N32.89 Other specified disorders of bladder; Z13.9 Encounter for screening, unspecified
CPT/HCPCS: 99214

== ENCOUNTER → 2024-05-22 13:04 | Outpatient (BNVA) | payer OTHER, SELFPAY | PROVIDERS: PCP Internal Medicine; Visit Provider Urology | DX: R32 Unspecified urinary incontinence (principal); R39.15 Urgency of urination; N32.89 Other specified disorders of bladder | CPT/HCPCS: 51798; 81003; 99212 ==

== ENCOUNTER → 2024-06-13 08:03 | Outpatient (REF) | payer OTHER, SELFPAY ==
--- NOTE | ~2024-06-13 | NM_ITS ---
Lexiscan Myocardial perfusion study Indication: Precordial chest pain Technique: The patient was brought in for a Lexiscan perfusion study on 06/13/2024 and was injected 0.4 mg of Lexiscan intravenously. Within a minute of this injection 25 mCi of sestamibi was given intravenously. Images were obtained using the SPECT gamma camera interlaced with the gating device. Images were obtained in supine position. Resting perfusion study was performed on 06/16/2024. Patient was administered 25 mCi of sestamibi intravenously at rest. Images were then obtained in supine position. Images obtained without without CT attenuation. Total DLP 159 mGy-cm. Images were processed with the software and compared side to side in short axis, horizontal long axis and vertical long axis views. Findings: The stress perfusion study showed nonattenuated images show minimal thinning of the inferolateral wall of the LV myocardium. Remainder of the LV myocardium is normally perfused. Attenuated corrected images show normal uptake ordered images in all segments of the LV myocardium. The gated study shows normal LV systolic function with calculated LVEF of 50%. LV cavity is normal in size. The gated study shows normal systolic wall thickening and contraction of segments. Resting study shows no significant change in perfusion pattern compared to stress perfusion study. Gating at rest reveals normal systolic wall motion with ejection fraction at greater than 50%. The findings are consistent with likely normal myocardial perfusion. NM/NM cardiolite stress test Impression: 1. Myocardial perfusion imaging study shows likely normal myocardial perfusion 2. Gated LVEF is 50% 3. Transient ischemic dilatation not present Nondiagnostic changes on EKG. Electronically signed by: Gordo Vera MD 06/16/2024 05:00 PM [facility]
--- NOTE | 2024-06-13 08:06 | CA_ITS ---
Acquisition Time: 2024-06-13 08:17:27 Total Exercise Time: 00:02:00 Test Indications: Abnormal ECG SVT Medications: SEE H&P Protocol: LEXISCAN Max HR: 129 BPM 91% of Pred: 141 BPM Max BP: 136/62 mmHG Max Work Load: 1.0 METS Pharmacologic Stress Test with Lexiscan, while pt marches in chair, with reports of SOB and fatigue, no chest discomfort, without any arrythmias, with normotensive response to injection. Nondiagnostic EKG for ischemia. In recovery, pt treated with IVP Aminophylline 75 mg to reverse Lexiscan, after which pt feeling back to baseline. Nuclear images pending. Test reviewed with Dr. Martinez. Referred By: Abdulkadir Saucedo Electronically Signed By: Billy Tapia
--- OUTSIDE RECORDS SUMMARY | 2024-06-13 08:14 | XMS_ITS | Data Portability ---
Author Organization [employer] [facility] Address [address] [place] [id number] Care Team Providers Care Receipt And Report Clerk Name Role Phone [facility] Referring Provider [phone] [facility] Referring Provider Assessment Encounter Date Assessment Date Assessment LastModified by Organization Details LastModified Time 11/17/2022 11/17/2022 I have reviewed and agree with the assessment and plan as documented by the motion picture set grip. I provided real-time medical direction for this [...] lidocaine 5 % topical patch 2022 023 [facility] #[id number], [address] [facility] [place], [address], 11:57:27 Patient TargetsNo targets recorded. Patient InstructionsNo instructions recorded. Reason for Referral None Reported. Medical Equipment None Reported. Allergies Allergen ID Allergen Name Allergen Category Reaction Reaction Severity Criticality Documentation Date Start Date Code Code System Note Provider Name and Address Organization Details Recorded Time 8502 Medicinal product containin g penicilli n and acting as antibacte rial agent (product) medicatio n Not available Not available Not available 03/25/2024 26745 05 SNOMED Not Available [facility] - production [...] Diagnosis/Indication Diagnosis SNOMED-CT Code Diagnosis ICD10 Code Diagnosis Note [id number] Diana Padilla MD [facility] - [facility] [address] [place] [address] 11/17/2022 11:51:27 11/18/2022 13:00:39 Low back pain [id number] M54.50 Health Concerns Section Related Observation LastModified by Organization Detai ls LastModified Time None Recorded Concern Status LastModified by Organization Details LastModified Time None Recorded Advance Directives Directive None Recorded Payers Encounter Date Sequence Insurance Name Policy Number Policy Carter Covered Member ID Carter Member ID Guarantor Name 11/17/2022 1 [facility] - DOS ON OR AFTER 2022 - DUAL ELIGIBLE - CORRECTION OPTIONS AND ONE CARE (MEDICARE REPLACEMENT/ADV ANTAGE - HMO) Vicky Craft [id number] Vickychina Craft Notes Date Note Type Note [...] to reach member Diana Padilla MD [address] [facility], [place], [address], [employer] 11/17/2022 11:57:38 OBGyn Episode No OBEpisode recorded.
== END ==
LOC: HO.CARD 08:03
PROVIDERS: PCP Internal Medicine; Visit Provider Internal Medicine
DX: R07.2 Precordial pain (principal); I20.9 Angina pectoris, unspecified
CPT/HCPCS: 78452; 93017; A9500; J0280; J2785

== ENCOUNTER → 2024-06-13 08:06 | Outpatient (BNV) | payer OTHER, SELFPAY | PROVIDERS: PCP Internal Medicine | DX: R06.02 Shortness of breath (principal) | CPT/HCPCS: 78452; 93016; 93018 ==

== ENCOUNTER 2024-06-13 10:06 | Outpatient (REF) | payer OTHER, SELFPAY ==
[2024-06-13 10:32] LABS: MANUAL DIFF FLAG NO
[2024-06-13 10:46] LABS: Basophils Percent Auto 0.5 % (0-2); Eosinophils Percent Auto 0.3 % (0-4); Hematocrit 39.2 % (37.0-47.0); Hemoglobin 12.1 g/dl (12.0-16.0); Imm Gran Abs Auto 0.02 X10*3/uL (0.00-0.03); Imm Gran Pct Auto 0.3 % (0.0-0.4); Lymphocytes Absolute Auto 1.7 X10*3/uL (1.2-4.9); Lymphocytes Percent Auto 27.6 % (20-40); Mean Corpuscular HGB Conc 30.9 g/dl (31.0-35.0); Mean Corpuscular Hemoglobin 25.6 pg (27.0-33.0); Mean Corpuscular Volume 82.9 fL (80.0-98.0); Mean Platelet Volume 10.8 fL (9.4-12.3); Monocytes Absolute Auto 0.6 X10*3/uL (0.1-1.2); Monocytes Percent Auto 9.6 % (2-11); Neutrophils Absolute Auto 3.8 x10*3/uL (2.0-8.3); Neutrophils Percent Auto 61.7 % (45-73); Platelet Count 317 X10*3/uL (160-400); Red Blood Count 4.73 X10*6/uL (4.20-5.50); Red Cell Distribution Width 14.8 % (11.0-16.0); White Blood Count 6.2 X10*3/uL (4.8-10.8)
[2024-06-13 11:07] LABS: Alanine Aminotransferase 18 U/L (0-31); Albumin Level 3.9 g/dL (3.5-5.0); Alkaline Phosphatase 67 U/L (39-117); Anion Gap 12 (12-20); Aspartate Amino Transferase 25 U/L (5-31); Bilirubin Total 0.4 mg/dL (0.0-1.0); Blood Urea Nitrogen 16 mg/dL (9-16); C Reactive Protein 0.11 mg/dL (< or = 0.50); Calcium 9.1 mg/dL (8.4-10.2); Carbon Dioxide 29 mmol/L (22-29); Chloride 106 mmol/L (96-108); Estimated Glomerular Filt Rate > 60; Glucose Random 98 mg/dL (60-115); Potassium 3.8 mmol/L (3.3-5.1); Sodium 143 mmol/L (135-145); Total Protein 7.4 g/dL (6.5-8.0)
[2024-06-13 11:36] LABS: Erythrocyte Sedimentation Rate 13 MM/HR (0-20)
[2024-06-18 17:08] LABS: Vitamin D 25-OH, D2 <4 ng/mL; Vitamin D 25-OH, D3 38 ng/mL; Vitamin D 25-OH, Total 38 ng/mL (30-100)
== END 2024-06-13 10:07 | disposition home or self-care (01) ==
LOC: HO.10HDL 10:06
PROVIDERS: Visit Provider Student in an Organized Health Care Education/Training Program
DX: M05.9 Rheumatoid arthritis with rheumatoid factor, unspecified (principal); Z79.60 Long term (current) use of unspecified immunomodulators and immunosuppressants; E55.9 Vitamin D deficiency, unspecified
CPT/HCPCS: 36415; 80053; 82306; 85025; 85652; 86140

== ENCOUNTER 2024-06-19 13:47 | Outpatient (AMB) | payer OTHER, SELFPAY ==
[2024-06-19 13:48] VITALS: BP 114/62; PULSE 58; BMI 30.4
--- NOTE | 2024-06-19 13:48 | MHC.OFFVIS ---
Vital Signs 06/19/24 13:48 Height 5 ft 3 in Weight 171 lb 8.314 oz BMI 30.4 BP 114/62 Blood Pressure Location Lt brachial Position Sitting Pulse 58 Pulse Source Pulse Oximeter Intake Visit Reasons: 3 mth f/up echo/ holter/ ivory HS Policyholder Information Clerk Required: No Furniture Painter: Furniture Painter Present Allergies BERNADETTE Inhibitors Allergy (Severe, Verified 06/19/24 13:54) Angioedema Iodinated Contrast Media [CONTRAST, IV] Allergy (Intermediate, Verified 06/19/24 13:54) SWELLING, ITCHINESS, RASH Penicillins [PENICILLINS] Allergy (Intermediate, Verified 06/19/24 13:54) ITCHINESS, RASH, SWELLING latex Allergy (Verified 06/19/24 13:54) Hives Sulfa (Sulfonamide Antibiotics) Allergy (Verified 06/19/24 13:54) Unknown zoledronic acid [From Reclast] Adverse Reaction (Verified 06/19/24 13:54) Joint Pain Medication List - Last Reconciled 06/19/24 by Roseanna Isidro [employer] acetaminophen (Mapap (acetaminophen)) 500 mg PO DAILY albuterol sulfate 90 mcg/actuation 2 puffs inhalation Q4H PRN apixaban (Eliquis) 5 mg PO BID atorvastatin 20 mg PO BEDTIME cholecalciferol (vitamin D3) 50 mcg PO DAILY cyanocobalamin (vitamin B-12) 1,000 mcg sublingual DAILY duloxetine 60 mg PO DAILY hydrochlorothiazide 12.5 mg PO DAILY leflunomide 20 mg PO DAILY lorazepam 0.5 mg PO DAILY PRN metoprolol succinate ER 50 mg PO DAILY mirabegron ER (Myrbetriq) 50 mg PO DAILY multivitamin 1 tab PO DAILY omeprazole 40 mg PO DAILY temazepam 30 mg PO BEDTIME PRN HPI HPI 3 mth f/up echo/ holter/ ivory HS: Details: Mario is a 79-year-old female with past medical history of asthma, rheumatoid arthritis, pulmonary embolism and on Eliquis for anticoagulation he was evaluated for chest discomfort and heart palpitations. She underwent a echocardiogram, nuclear stress test, Holter monitor and now presents for follow-up. Today she reports that she continues to get a sharp pain below her left breast that travels through to her back. This can happen randomly. It is not brought on by any known triggers including walking or stair climbing. No shortness of breath at rest or with activity. No PND, orthopnea or edema. She will feel some heart palpitations where her heart goes fast for a few seconds and then back to normal. No lightheadedness, presyncope, syncope, falls. She drinks 5 or more cups of coffee per day. She has been compliant with her meds. No bleeding issues reported. [id number] is present and she is assisting with translation. [facility] Medical History Right ankle swelling Long-term use of immunosuppressant medication Dry skin dermatitis Leg edema Surgical History History of cholecystectomy History of appendectomy History of total abdominal hysterectomy and bilateral salpingo-oophorectomy History of bariatric surgery History of colonoscopy Family History Father Asthma Mother Rheumatoid arthritis Cardiovascular disease Social History Household Members: Family Housing: House Are you a primary technical healthcare consultant to a significant other at home: No Do you presently have visiting nurse or other home services: Yes (PT 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 a 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) Alcohol intake: never Patient Tobacco Use Status: Never used Tobacco Advance Directives Date on File: 02/06/24 service: No Current occupational status: disabled Review of Systems Const All systems reviewed & are unremarkable except as noted in HPI and below ENT Denies dizziness Card Details: random sharp pain below breast that goes through to her back Denies chest pain, Denies chest pain at rest, Denies chest pain with activity, Denies rapid heart rate, Denies pedal edema, Denies edema, Denies leg edema, Denies lightheadedness, Denies palpitations, Denies dyspnea, Denies dyspnea on exertion and Denies orthopnea Resp Denies cough, Denies dyspnea and Denies dyspnea on exertion GI Denies hematochezia and Denies change in stool character Musc Denies abnormal gait, Denies limited range of motion, Denies muscle cramps, Denies muscle weakness, Denies numbness, Denies radiating pain into limb, Denies stiffness and Denies tingling Neuro Denies abnormal gait, Denies dizziness, Denies numbness and Denies tingling Endo Denies palpitations Physical Exam Vital Signs: Last Vital Signs Pulse 58 06/19/24 13:48 BP 114/62 06/19/24 13:48 BMI result Body Mass Index 30.4 Const General: cooperative, healthy appearing, comfortable and no acute distress Orientation/consciousness: patient oriented x3 Neck Neck: Yes normal visual inspection Resp Effort & Inspection: normal respiratory effort Auscultation: clear to auscultation bilaterally, no rales, no rhonchi and no wheezes Cardio Rate: regular rate Rhythm: regular rhythm Heart sounds: S1 normal heart sound present, S2 normal heart sound present, no murmurs and no rubs Neuro General: patient oriented x3 Extrem General: Yes normal to inspection, No no pedal edema and No calf tenderness Psych Appearance: grossly normal Mental Status: mental status grossly normal Speech and movement: Normal speech and movement present Assessment & Plan Assessment & Plan (1) Precordial chest pain: Code(s): R07.2 - Precordial pain Category: Medical Plan: Reports of atypical sounding chest discomfort. She has cardiac risks of rheumatoid arthritis and age. EKG done on prior visit shows sinus rhythm, can not exclude prior inferior infarct. A prior CT scan of the chest showed moderate coronary calcifications. She had an echocardiogram on 04/18/2024 which showed EF 60-65%, [id number] tricuspid regurgitation, no pericardial effusion. Nuclear stress test on 06/13/2023 was normal. Test results reviewed with her. She continues to have her discomfort below the breasts that travels through to her back. It happens randomly. It sounds most like musculoskeletal discomfort. Signs and symptoms of true angina reviewed with her. Continue med management for stable CAD. She is not on aspirin as she is on Eliquis. She is on atorvastatin with ideal LDL goal less than 70. She is on metoprolol. (2) Palpitations: Code(s): R00.2 - Palpitations Category: Medical Plan: Reports of heart palpitations like her heart is beating fast for a few seconds. Holter monitor was done on 04/18/2024 for 6 days showing sinus rhythm with average heart rate 77 beats per minute, rare ectopy, as VT bursts, longest 13 beats. Her symptoms are most consistent with brief NSVT. She is on metoprolol. She admits to drinking over 5 cups of caffeinated coffee per day. Instructed her to limit her caffeine intake to 1-2 or switch entirely to decaf. Maintain good hydration. Exercise as tolerated. Emergency care if she ever has sustained rapid palpitations. Cardiology follow-up 6 months, sooner if needed (3) PAC (premature atrial contraction): Code(s): I49.1 - Atrial premature depolarization Category: Medical Plan: As above (4) Atrial tachycardia: Code(s): I47.19 - Other supraventricular tachycardia Category: Medical Plan: As above Plan Time spent on chart review, documentation, interview and assessment Coding Level of Care Code Est Pt Level 4 (71890) Complex EM visit Add On G2211 Diagnoses Precordial chest pain R07.2 Palpitations R00.2 PAC (premature atrial contraction) I49.1 Atrial tachycardia I47.19 Time Spent (min) 28
== END 2024-06-19 14:19 | disposition home or self-care (01) ==
PROVIDERS: PCP Internal Medicine; Visit Provider Nurse Practitioner Family
DX: R07.2 Precordial pain (principal); R00.2 Palpitations; I49.1 Atrial premature depolarization; I47.19 Other supraventricular tachycardia
CPT/HCPCS: 99214; G2211

== ENCOUNTER → 2024-06-19 13:47 | Outpatient (BNVA) | payer OTHER, SELFPAY | PROVIDERS: PCP Internal Medicine; Visit Provider Nurse Practitioner Family | DX: R07.2 Precordial pain (principal); R00.2 Palpitations; I49.1 Atrial premature depolarization; I47.19 Other supraventricular tachycardia | CPT/HCPCS: 99212 ==

== ENCOUNTER 2024-06-24 07:39 | Outpatient (AMB) | payer OTHER, SELFPAY ==
--- NOTE | 2024-06-24 07:40 | A.OFFVIS_ITS ---
Vital Signs 06/24/24 07:47 Height 5 ft 3 in Weight 172 lb 6.424 oz BMI 30.5 BP 126/80 Blood Pressure Location Rt brachial Position Sitting Pulse 57 Pulse Source Pulse Oximeter Intake Visit Reasons: osteoporosis f/u & prolia Intake Note: Patient last seen by Doctor Abdelrahman Hester on 03/04/24. Presents today for Osteoporosis and Prolia injection follow up and test results. Bed Placement Coordinator Required: No Accompanied by: Other Relationship Allergies BERNADETTE Inhibitors Allergy (Severe, Verified 06/24/24 07:52) Angioedema Iodinated Contrast Media [CONTRAST, IV] Allergy (Intermediate, Verified 06/24/24 07:52) SWELLING, ITCHINESS, RASH Penicillins [PENICILLINS] Allergy (Intermediate, Verified 06/24/24 07:52) ITCHINESS, RASH, SWELLING latex Allergy (Verified 06/24/24 07:52) Hives Sulfa (Sulfonamide Antibiotics) Allergy (Verified 06/24/24 07:52) Unknown zoledronic acid [From Reclast] Adverse Reaction (Verified 06/24/24 07:52) Joint Pain HPI Comments Details: Patient is a 79-year-old female with hypertension, hyperlipidemia, atrial fibrillation complicated by history of PE on anticoagulation, osteoporosis complicated by lumbar compression fracture and seropositive erosive rheumatoid arthritis here today for follow up Interval History: Patient last seen 03/04/[address] Hester. At that time she was on leflunomide 20 mg and was doing much better overall. The prior visit she had significant ankle swelling that was treated with prednisolone tapers and this improved with the taper. Today, Patient reports that she is doing overall well. No falls or fractures. Does sometimes need Prednisone but this occurs she says once every 2 months or so No prolonged morning stiffness Rheumatologic History: +++RF+++CCP Humira October 2019- February 2020 - not effective Enbrel- February 2020 to April 2020- self stopped due to cholecystitis, then had cholecystectomy. 06/2020 Low dose methothrexate - partial effective so Kevzara started July 2020- discontinued June 2022 due to neutropenia and leukopenia Methotrexate: January 2020 discontinued 06/2022 due to neutropenia. Out of touch in [place] 06/2022 to 11/2022. MTx restarted 02/2023 MTX DC 06/2023 due to GI upset Leflunomide 06/2023 effective Current Rheumatology Medication(s): Leflunomide 20 mg daily Prolia 60 mg sc every 6 months [facility] Medical History (Updated 06/24/24 @ 08:10 by Lisy Hooker MD) Encounter for monitoring denosumab therapy On custodial leflunomide therapy Encounter for monitoring leflunomide therapy Right ankle swelling Long-term use of immunosuppressant medication Dry skin dermatitis Leg edema Surgical History History of cholecystectomy History of appendectomy History of total abdominal hysterectomy and bilateral salpingo-oophorectomy History of bariatric surgery History of colonoscopy Family History Father Asthma Mother Rheumatoid arthritis Cardiovascular disease Social History Household Members: Family Housing: House Are you a primary respiratory care program director to a significant other at home: No Do you presently have visiting nurse or other home services: Yes (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) Alcohol intake: never Patient Tobacco Use Status: Never used Tobacco Advance Directives Date on File: 02/06/24 service: No Current occupational status: disabled Review of Systems Const Details: Review of Systems Constitutional: Denies fever, chills, weight loss ENT: Denies vision changes, eye pain or eye redness, dental caries, dry mouth GI: Denies nausea, vomiting, diarrhea, abdominal pain, change in BM Pulm: Denies SOB, [place], hemoptysis, wheezing Cards: Denies chest pain, palpitations Skin: Denies Raynaud's, rash, nail changes, photosensitivity, INSPECTOR [employer]ED [employer]OD RECONDITIONING: Denies headaches, weakness, paresthesias, recurrent falls MSK: as per HPI All other systems reviewed and are unremarkable except noted above Physical Exam Vital signs reviewed Physical Examination CONSTITUITIONAL Patient alert and cooperative. Well appearing and in no apparent painful distress HEENT Conjunctiva and sclera clear. ?Pupils equal round and reactive to light. ?No lymphadenopathy. ? CHEST/RESPIRATORY SYSTEM Normal respiratory effort and able to speak in complete sentences. ?Clear to auscultation bilaterally. ?No crackles, rales, rhonchi, wheezes heard. CARDIAC SYSTEM Regular rate and rhythm. ?S1 and S2 heard no murmurs. ?Radial pulses intact bilaterally MSK Hands: ?Good heel sander strength bilaterally. No deformities noted. ?No synovitis noted to the MCPs, PIPs or DIPs. ?No tenderness to palpation of these joints. Reducible swan-neck deformity of the right 5th digit Wrists: ?Full range of motion at the wrists without pain. ?No tenderness to palpation or synovitis noted to the wrists. Elbows: Full range of motion without pain. No tenderness, weakness, swelling, increased warmth or erythema. Shoulders: Full range of motion without pain. No tenderness, weakness, swelling, increased warmth or erythema. Hips: Full range of motion without pain. Hip bursa: No tenderness to palpation Knees: ?Full range of motion. ?No tenderness, swelling, increased warmth or erythema.?No effusion or crepitations Ankles: Full range of motion. ?Mild tenderness to palpation of the left ankle without swelling. Feet: ?Negative squeeze test. ?No tenderness to palpation or swelling of the MTPs. Tender points:?No tenderness to palpation of the bilateral trapezius, supraspinatus, greater trochanters, anterior costochondral junctions, bilateral gluteal areas, bilateral suboccipital muscle insertions SKIN Skin intact without rashes. Office Meds Prolia 60 mg/mL subcutaneous syringe Performing Provider: Lisy Hooker MD Performing Location: [facility] Rheumatology Administered by: Lisy Hooker MD on 06/24/24 08:19 Dose Route Admin Location Dispensed Lot Number Expiration Date ND Side Seam Machine Operator 60 mg subcut left deltoid 1 mL [id number] 11/24/26 79954-564-29 [employer] Results Reviewed Results Reviewed: Laboratory Tests 10/24/19 02/27/24 02/28/24 12:25 14:38 12:50 WBC RBC Hgb Hct Plt Count ESR Sodium Potassium Chloride Carbon Dioxide BUN Creatinine Uric Acid 4.3 AST ALT Alkaline Phosphatase C-Reactive Protein 25-OH Vitamin D Total Rheumatoid Factor 781.8 H Cycl Citrul Peptide IgG >250 H Hepatitis A IgM Ab Nonreactive Hep Bs Antigen Negative Hep Bs Antibody NONREACTIVE Hep B Core Total Ab Nonreactive Hepatitis C Ab (EIA) Nonreactive TB Test (T-Spot) Com Negative 06/13/24 10:12 WBC 6.2 RBC 4.73 Hgb 12.1 Hct 39.2 Plt Count 317 ESR 13 Sodium 143 Potassium 3.8 Chloride 106 Carbon Dioxide 29 BUN 16 Creatinine 0.85 Uric Acid AST 25 ALT 18 Alkaline Phosphatase 67 C-Reactive Protein 0.11 25-OH Vitamin D Total 38 Rheumatoid Factor Cycl Citrul Peptide IgG Hepatitis A IgM Ab Hep Bs Antigen Hep Bs Antibody Hep B Core Total Ab Hepatitis C Ab (EIA) TB Test (T-Spot) Com DEXA 01/18/22 FINDINGS: AP SPINE L1-L3 (excluding L4): The data of L1-L4 has been changed to exclude the L4 vertebral body, because degenerative sclerosis at this level may cause overestimation of lumbar spine density. BMD 0.748 g/cm2, Z-score -2.1, T-score -3.5, osteoporosis. LEFT FEMUR, NECK: BMD 0.627 g/cm2, Z-score -1.2, T-score -3.0, osteoporosis. LEFT FEMUR, TOTAL: BMD 0.740 g/cm2, Z-score -0.5, T-score -2.1, osteopenia. Assessment & Plan Assessment & Plan (1) Seropositive rheumatoid arthritis: Comment: +++RF+++CCP Humira October 2019- February 2020 - not effective Enbrel- February 2020 to April 2020- self stopped due to cholecystitis, then had cholecystectomy. 06/2020 Low dose methothrexate - partial effective so Kevzara started July 2020- discontinued June 2022 due to neutropenia and leukopenia Methotrexate: January 2020 discontinued 06/2022 due to neutropenia. Out of touch in [place] 06/2022 to 11/2022. MTx restarted 02/2023 MTX DC 06/2023 due to GI upset Leflunomide 06/2023 effective Code(s): M05.9 - Rheumatoid arthritis with rheumatoid factor, unspecified Category: Medical Plan: #Seropositive RA Patient is a 79-year-old female with seropositive erosive rheumatoid arthritis. Today she is not in complete remission but does have low disease activity. She has tenderness to palpation of the ankle without swelling. Discussed escalating her therapy versus continuing the current therapy with intermittent Prednisone and patient as well as daughter thought that continuing the current therapy is the best option at this time. I am in agreement with them especially since she is not using Prednisone regularly. Can consider escalating therapy in the future Labs done 06/13/2024. Normal creatinine and normal LFTs. Plan - Leflunomide 20 mg daily - Prednisone 5 mg daily prn (disp 30 tabs) - RTC 4 months - Labs prior to visit: CBC, CMP, ESR, CRP, Hepatitis panel, Tb (2) Osteoporosis: Comment: MRI lumbar spine 06/2021: Moderate benign appearing compression fracture along superior endplate T11 and T12 DEXA 01/14/2022: AP Spine -3.5, Left femur neck -1.2, Left femur total -0.5 Started on alendronate, patient did not receive medication. Prolia avoided due to latex allergy. Reclast denied by insurance company. Alendronate reordered May 2022 pharmacy did not fill due to listed allergy of bisphosphonates. Reviewed with patient, she remembered that she took Reclast in the past and had head to toe joint pain after infusion requiring hospitalization. Patient agrees to retry alendronate June 2022 - not tolerated. Prolia given 11/2022, 05/2024 Code(s): M81.0 - Age-related osteoporosis without current pathological fracture Category: Medical Qualifiers: Osteoporosis type: age-related Presence of current pathological fracture: with current pathological fracture Encounter type: sequela Qualified Code(s): M80.00XS - Age-related osteoporosis with current pathological fracture, unspecified site, sequela Plan: #Osteoporosis complicated by lumbar compression fractures Patient currently receiving Prolia. Second dose received today. No further fractures or falls. Vitamin-D at goal Plan - Prolia in 6 months - Check CMP and Vitamin D prior administration - Keep vitamin-D at least 35 ng/mL - Check DEXA (3) Encounter for monitoring leflunomide therapy: Code(s): Z51.81 - Encounter for therapeutic drug level monitoring; Z79.69 - predatory animal exterminator (current) use of other immunomodulators and immunosuppressants Category: Medical Plan: #Long-term leflunomide Discussed with patient the benefits and risks of leflunomide for managing the rheumatic condition Benefits include: - Reduced pain, maintenance of remission and reduction of flares Risks include: - GI upset especially diarrhea, skin rash, cytopenias, hepatotoxicity, weight loss, neuropathy Monitoring: ?CBC, BMP, LFTs, hepatitis B and C serologies (4) On terminal system operator leflunomide therapy: Code(s): Z79.69 - MCC (current) use of other immunomodulators and immunosuppressants Category: Medical Plan: #Long-term leflunomide Discussed with patient the benefits and risks of leflunomide for managing the rheumatic condition Benefits include: - Reduced pain, maintenance of remission and reduction of flares Risks include: - GI upset especially diarrhea, skin rash, cytopenias, hepatotoxicity, weight loss, neuropathy (5) Encounter for monitoring denosumab therapy: Code(s): Z51.81 - Encounter for therapeutic drug level monitoring; Z79.620 - MCC (current) use of immunosuppressive biologic Category: Medical Plan: #Long-term use of Denosumab Discussed with patient the risks and benefits of denosumab (Prolia) for the management of their osteoporosis Benefits include improved bone density, decreased fracture risk Risks include rapid bone loss if denosumab stopped, osteonecrosis of the jaw especially in patients with poor oral hygiene/diabetes/use of glucocorticoids/age greater than 65 years, atypical femoral fractures, injection site reactions. Mild increased risk of infections due to RANKL on T helper cells, increased risk of hypocalcemia especially in CKD patients Keep vitamin-D at least 35 ng/mL Advised to delay non emergent dental procedures to toward the end of the 6 month cycle and if they plan to stop denosumab would need to continue antiresorptive to maintain the effects of denosumabe Plan I spent 30 minutes reviewing the record and labs, taking a history, examining the patient, discussing the treatment plan and documenting in the medical record Orders: Orders Complete Blood Count Auto Diff 4 Months M05.9 - Rheumatoid arthritis with rheumatoid factor, unspecified, M80.00XS - Age-related osteoporosis with current pathological fracture, unspecified site, sequela, Z51.81 - Encounter for therapeutic drug level monitoring, Z79.69 - predatory animal exterminator (current) use of other immunomodulators and immunosuppressants Comprehensive Met. Panel 4 Months M05.9 - Rheumatoid arthritis with rheumatoid factor, unspecified, M80.00XS - Age-related osteoporosis with current pathological fracture, unspecified site, sequela, Z51.81 - Encounter for therapeutic drug level monitoring, Z79.69 - MCC (current) use of other immunomodulators and immunosuppressants XR DEXA axial skeleton Today M80.00XS - Age-related osteoporosis with current pathological fracture, unspecified site, sequela Vitamin D 25-OH Total Today E55.9 - Vitamin D deficiency, unspecified AMB Denosumab Injection Practice Supplied Today M80.00XS - Age-related osteoporosis with current pathological fracture, unspecified site, sequela C Reactive Protein 4 Months M05.9 - Rheumatoid arthritis with rheumatoid factor, unspecified, M80.00XS - Age-related osteoporosis with current pathological fracture, unspecified site, sequela, Z51.81 - Encounter for therapeutic drug level monitoring, Z79.69 - MCC (current) use of other immunomodulators and immunosuppressants Hepatitis A,B,C Profile 4 Months M05.9 - Rheumatoid arthritis with rheumatoid factor, unspecified, M80.00XS - Age-related osteoporosis with current pathological fracture, unspecified site, sequela, Z51.81 - Encounter for therapeutic drug level monitoring, Z79.69 - predatory animal exterminator (current) use of other immunomodulators and immunosuppressants Erythrocyte Sedimentation Rate 4 Months M05.9 - Rheumatoid arthritis with rheumatoid factor, unspecified, M80.00XS - Age-related osteoporosis with current pathological fracture, unspecified site, sequela, Z51.81 - Encounter for therapeutic drug level monitoring, Z79.69 - MCC (current) use of other immunomodulators and immunosuppressants T Spot TB 4 Months Z51.81 - Encounter for therapeutic drug level monitoring, Z79.69 - predatory animal exterminator (current) use of other immunomodulators and immunosuppressants Medications: New prednisone 5 mg PO DAILY PRN 30 tabs 0RF pain and swelling M05.9 - Rheumatoid arthritis with rheumatoid factor, unspecified Prolia (denosumab) 60 mg subcut ONCE 1 mL 0RF NS M80.00XS - Age-related osteoporosis with current pathological fracture, unspecified site, sequela Refilled leflunomide 20 mg PO DAILY 90 tabs 1RF M05.9 - Rheumatoid arthritis with rheumatoid factor, unspecified Coding Level of Care Code Est Pt Level 4 (42465) Complex EM visit Add On G2211 Diagnoses Seropositive rheumatoid arthritis M05.9 Age-related osteoporosis with current pathological fracture, sequela M80.00XS Osteoporosis type: age-related Presence of current pathological fracture: with current pathological fracture Encounter type: sequela Encounter for monitoring leflunomide therapy Z51.81; Z79.69 On custodial leflunomide therapy Z79.69 Encounter for monitoring denosumab therapy Z51.81; Z79.620
--- OUTSIDE RECORDS SUMMARY | 2024-06-24 07:42 | XMS_ITS | Encounter Summary ---
Author Organization [facility] Address [address] [place] [address] Care Team Providers Care Analog Circuit Designer Name Role Phone Erik Motley MD Primary Care Provider [phone] Encounter Details Date Type Department Care Team (Late st Contact Info) Description 07/18/2019 Scanned Document [facility] Rheumatology [address] [id number] Raiza Luis MD Social History Tobacco Use Types Packs/Day Years Used Date Smoking Tobacco: Never Smokeless Tobacco: Never Alcohol Use Standard Drinks/Week Comments Never 0 (1 standard drink = 0.6 oz pur e alcohol) AUDIT-C Answer Date Recorded Frequency of Alcohol Consumption Never 12/10/2018 Average Number of Drinks Not on file 019 Frequency of Binge Drinking Not on file 11/25 Sex and Gender Information Value Date Recorded Sex Assigned at Not on file Gender Identity Not on file Sexual Orientation Not on file documented as of this encounter Plan of Treatment Not on file documented as of this encounter Visit Diagnoses Not on filedocumented in this encounter Care Teams Analog Circuit Designer Relationship Specialty Start Date End Date Erik Motley MD [address] [place] [address] [facility] [id number] PCP - General 07/18/19 documented as of this encounter
--- OUTSIDE RECORDS SUMMARY | 2024-06-24 07:42 | XMS_ITS | Encounter Summary ---
Author Organization [employer] Address [address] [place] [address] Care Team Providers Care Chemistry Teacher Name Role Phone Erik Gibbs MD Primary Care Provide r Encounter Details Date Type Department Care Team (Late st Contact Info) Description 06/13/2024 Orders Only [facility] External Provider, [facility] Social History Tobacco Use Types Packs/Day Years Used Date Smoking Tobacco: Never Passive Smoke Exposure: Never Smokeless Tobacco: Never Alcohol Answer Date Recorded Frequency of Alcohol Consumption Not on file 03/18/2024 Average Number of Drinks Not on file 024 Frequency of Binge Drinking Not on file 02/26 Score 0 03/18/2024 Depression Answer Date Recorded Patient Health Questionnaire-9 Score 1 09/27/2023 Patient Health Questionnaire-9 Score 1 09/27/2023 Last PHQ-9: Questionnaire Data Not on file 0 09/27/2023 Housing Stability Answer Date Recorded What is your housing situation today? I have ella hickey 09/27/[address] you li ve. Do you have problems with any of the following? None of the above 09/27/2023 Food Insecurity Answer Date Recorded Within the past 12 months, y ou worried that your food would run out before you got money to buy more: Never True 09/27/2023 Within the past 12 months,th e food you bought just didn't last and you didn't have enough money to get more: Never True 06/2023 Transportation Answer Date Recorded In the past 12 months, has l ack of transportation kept you from medical appts, meetings, work or from getting things needed for daily living? No 09/27/2023 Utilities Answer Date Recorded In the past 12 months, has t he electric, gas, oil or water company threatened to shut off services in your home? No 09/27/2023 Depression Answer Date Recorded Patient Health Questionnaire-2 Score 0 09/27/2023 Comments Unknown Sex and Gender Information Value Date Recorded Sex Assigned at Female 03/27/2022 10:23 AM EDT Legal Sex Female 10:23 AM EDT Gender Identity Female 03/27/2022 10:23 AM EDT Sexual Orientation Straight 03/27/2022 10 :23 AM EDT documented as of this encounter Plan of Treatment Not on file documented as of this encounter Goals Goal Patient Goal Type Associated Problems Recent Progress Patient-Stated? Author Blood Pressure < 150/90 Blood Pressure 144/82( 024 3:38 PM EDT) No Maxwell Davis documented as of this encounter Procedures Procedure Name Priority Date/Time Associated Diagnosis Comments STRESS TEST WITH MYOCARDIAL PERFUSION Routine 06/13/2024 8:28 AM EST documented in this encounter Results * Stress test with myocardial perfusion (06/13/2024 8:28 AM EST) 06/13/2024 8:28 AM EST Narrative [facility] - 06/16/2024 5:05 PM EST ? [facility] ?[address] ?[place] [address] ?Nuclear Medicine Report ? Signed ? Patient: Craft,Vicky ?MR#: [id number] ?? 55 ? : 1945 ?Acct:[id number] ? Age/Sex: 79 / F ?ADM Date: /17/25 ? Loc: HO.CARD ? Attending Dr: Abdulkadir Saucedo MD ? Ordering Physician: Abdulkadir Saucedo MD ?? Date of Service: 06/13/24 ?? Procedure(s): NM cardiolite stress test ?? Accession Number(s): [id number] ? cc: Erik Farrar MD; Abdulkadir Saucedo MD ? Lexiscan Myocardial perfusion study ? Indication: ?? Precordial chest pain ? Technique: ? The patient was brought in for a Lexiscan perfusion study on 06/13/2024 ?? and was injected 0.4 mg of Lexiscan intravenously. Within a minute of ?? this injection 25 mCi of sestamibi was given intravenously. Images were ?? obtained using the SPECT gamma camera interlaced with the gating ?? device. Images were obtained in supine position. ? Resting perfusion study was performed on 06/16/2024. Patient was ?? administered 25 mCi of sestamibi intravenously at rest. Images were ?? then obtained in supine position. ? Images obtained without without CT attenuation. Total DLP 159 mGy-cm. ? Images were processed with the software and compared side to side in ?? short axis, horizontal long axis and vertical long axis views. ? Findings: ? The stress perfusion study showed ??nonattenuated images show minimal ?? thinning of the inferolateral wall of the LV myocardium. Remainder of ?? the LV myocardium is normally perfused. Attenuated corrected images ?? show normal uptake ordered images in all segments of the LV myocardium. ?? The gated study shows normal LV systolic function with calculated LVEF ?? of 50%. LV cavity is normal in size. The gated study shows normal ?? systolic ??wall thickening and contraction of segments. ?? Resting study shows no significant change in perfusion pattern compared ?? to stress perfusion study. Gating at rest reveals normal systolic wall ?? motion with ejection fraction at greater than 50%. ? The findings are consistent with likely normal myocardial perfusion. ? NM/NM cardiolite stress test ?? Impression: ? 1. ??Myocardial perfusion imaging study shows likely normal myocardial ?? perfusion ?? 2. ??Gated LVEF is 50% ?? 3. Transient ischemic dilatation not present ? Nondiagnostic changes on EKG. ? Electronically signed by: ??Gordo Vera MD ??06/16/2024 05:00 PM EST RP ? Dictated By: ?Jody,Gordo MD ? Signed By: ?<Electronically signed by Gordo Vera, MD in OV> ?06/16/24 1700 ? DD/ 0828 ? TD/TT: 06/16/24 0915 ? Account Auditor: ? Procedure Note Tej, Image - 06/16/[address] [address] Nuclear Medicine Report Signed Patient: Vicky CraftMR#: [id number] 55 : 5Acct:[id number] Age/Sex: 79 / FADM Date: 06/13/24 Loc: [facility] Attending Dr: Abdulkadir Saucedo MD Ordering Physician: Abdulkadir Saucedo MD Date of Service: 06/13/24 Procedure(s): NM cardiolite stress test Accession Number(s): [id number] cc: Erik Farrar MD; Abdulkadir Saucedo MD Lexiscan Myocardial perfusion study Indication: Precordial chest pain Technique: The patient was brought in for a Lexiscan perfusion study on 06/13/2024 and was injected 0.4 mg of Lexiscan intravenously. Within a minute of this injection 25 mCi of sestamibi was given intravenously. Images were obtained using the SPECT gamma camera interlaced with the gating device. Images were obtained in supine position. Resting perfusion study was performed on 06/16/2024. Patient was administered 25 mCi of sestamibi intravenously at rest. Images were then obtained in supine position. Images obtained without without CT attenuation. Total DLP 159 mGy-cm. Images were processed with the software and compared side to side in short axis, horizontal long axis and vertical long axis views. Findings: The stress perfusion study showed nonattenuated images show minimal thinning of the inferolateral wall of the LV myocardium. Remainder of the LV myocardium is normally perfused. Attenuated corrected images show normal uptake ordered images in all segments of the LV myocardium. The gated study shows normal LV systolic function with calculated LVEF of 50%. LV cavity is normal in size. The gated study shows normal systolic wall thickening and contraction of segments. Resting study shows no significant change in perfusion pattern compared to stress perfusion study. Gating at rest reveals normal systolic wall motion with ejection fraction at greater than 50%. The findings are consistent with likely normal myocardial perfusion. NM/NM cardiolite stress test Impression: 1. Myocardial perfusion imaging study shows likely normal myocardial perfusion 2. Gated LVEF is 50% 3. Transient ischemic dilatation not present Nondiagnostic changes on EKG. Electronically signed by: Gordo Vera MD 06/16/2024 05:00 PM EST RP Dictated By: Gordo Vera MD Signed By: <Electronically signed by Gordo Vera MD in OV> 06/16/24 1700 DD/ 0828 TD/TT: 06/16/24 0915 Account Auditor: [facility] External Provider CV STRE SS PROCEDURES Final Result Performing Organization Address City/State/[facility] Co de Phone Number [facility] [address] [place] [id number] documented in this encounter Visit Diagnoses Not on filedocumented in this encounter Additional Health Concerns Assessment Noted Time PHQ-9 Depression Total Score: 1 09/27/19 24 11:43 AM EDT documented as of this encounter Care Teams Chemistry Teacher Relationship Specialty Start Date End Date Erik Gibbs MD [address] [place] [id number] PCP - General Internal Medicine 02/18/19 documented as of this encounter
--- OUTSIDE RECORDS SUMMARY | 2024-06-24 07:42 | XMS_ITS | Clinical Summary ---
Author Organization [employer] Address [address] [place] [address] Care Team Providers Care Face Hardener Name Role Phone Erik Gibbs MD Primary Care Provide r Allergies Active Allergy Reactions Criticality Noted Date Comments Bismark Inhibitors Angioedema High 02/06/2024 Iodinated Contrast Media Vomiting 12/10/2018 vomiting Iodine Hives 01/23/2013 Latex Other,Itching Low 12/10/2018 Mannitol 03/16/2022 Penicillins Hives 01/23/2013 Sulfa Antibiotics Other 02/06/2024 Water, Sterile 03/16/2022 Zoledronic Acid 03/16/2022 Medications temazepam (Restoril) 30 MG capsule TAKE 1 CAPSULE BY MOUTH AT BEDTIME NEEDED FOR INSOMNIA 05/12/20 22 Active LORazepam (Ativan) 0.5 MG tablet TAKE 1 TABLET BY MOUTH ONCE A DAY NEEDED FOR SEVERE ANXIETY. UP TO 10 TIMES PER MONTH. 06/13/19 23 Active DULoxetine (Cymbalta) [address] capsule Take 60 mg by mouth in the morning. 06/13/19 23 Active Acetaminophen 500 MG capsuleIndication s:Rheumatoid arthritis involving multiple sites with positive rheumatoid factor (CMS/HCC) Take 1 capsule (500 mg) by mouth every 8 (eight) hours. 90 capsule 3 07/04/19 23 Active albuterol (ProAir HFA) 108 (90 Base) MCG/ACT inhaler Inhale 2 puffs every 4 (four) hours if needed for wheezing or shortness of breath. 18 g 3 05/30/19 24 Active denosumab (Prolia) 60 MG/ML solution prefilled syringe Inject 60 mg under the skin every 6 (six) months. Active atorvastatin (Lipitor) 20 MG tabletIndications :Mixed hyperlipidemia Take 1 tablet (20 mg) by mouth Once per day. 30 tablet 11 10/30/19 24 025 Active Eliquis 5 MG tablet Take 5 mg by mouth 2 times daily. 12/20/19 24 Active Multiple Vitamin (Multivitamin) tablet TAKE 1 TABLET BY MOUTH EVERY MORNING 90 tablet 1 02/14/20 24 Active metoprolol succinate XL (Toprol-XL) 50 MG 24 hr tablet TAKE 1 TABLET BY MOUTH EVERY MORNING 90 tablet 1 02/14/20 24 Active Cyanocobalamin (B-12) 1000 MCG lozenge DISSOLVE 1 LOZENGE UNDER THE TONGUE EVERY DAY 12/20/19 24 Active leflunomide (Arava) 20 MG tablet Take 1 tablet by mouth Once per day. 01/10/20 24 Active Breo Ellipta 200-25 MCG/ACT aerosol powder INHALE 1 PUFF BY MOUTH EVERY DAY AT THE SAME TIME RINSE MOUTH AFTER USING 03/14/20 24 Active omeprazole (PriLOSEC) [address] capsule 1 capsule 1/2 to 1 hour before morning meal Orally Once a day for 30 day(s) 03/12/20 24 Active hydroCHLOROthiazi de 12.5 MG tablet TAKE 1 TABLET BY MOUTH EVERY MORNING 90 tablet 3 06/10/19 25 Active D3 Super Strength 50 MCG (2000 UT) capsule TAKE 1 CAPSULE BY MOUTH EVERY MORNING 90 capsule 3 06/10/19 25 Active cholecalciferol (Vitamin D-3) 50 MCG (2000 UT) capsule Take 1 capsule (50 mcg) by mouth in the morning. 90 capsule 3 07/04/19 24 025 Discontinued hydroCHLOROthiazi de 12.5 MG tablet TAKE 1 TABLET BY MOUTH EVERY MORNING 90 tablet 1 12/11/19 24 025 Discontinued Active Problems Problem Noted Date Diagnosed Date Preventative health care 03/18/2024 Assessment & Plan (03/18/2024 2:59 PM EDT): Mammogram: 04/04/2023 Pap Smear: s/p NIDA and BSO 1994 for fibroids Colonoscopy: 11/14/2017 SHOWED Tubular Adenoma 5 yr f/u recommended Vaccines: records requested Dexa scan: Hospital discharge follow-up 02/14/2024 Assessment & Plan (02/14/2024 9:41 AM EDT): Patient here for a HDF Admitted to [facility] from 02/05-02/07/2024 where she presented for evaluation of swelling of her face and lips. Patient also c/o trouble swallowing for about 3-4 weeks prior to presentation. Treated with IV Solumedrol and famotidine. Acute angioedema resolved and enalapril was discontinued. Seen by speech who recommended NDD3 diet and outpatient f/u with speech therapy and GI. Patient was discharged home in stable condition and is here for follow up Pt feels back to baseline, denies any dysphagia. Still taking the Prednisone. I asked that she remained vigilant since I am not 100% convinced that the angioedema was precipitated by the BISMARK Inhibitor since she has been on it for many years and I want to make sure they remain vigilant in case the culprit is something else. Her daughter reports she has just gotten a new puppy prior to her developing the angioedema. Pt instructed to present herself to the ER if she is to develop it again. 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 Pt now OFF Enalapril Stress incontinence of urine 10/30/2023 Assessment & Plan (02/14/2024 9:31 AM EDT): Referred to Urology Has Urology Appt on 03/20/2024 @11AM Needs incontinence supplies Assessment & Plan (10/30/2023 3:16 PM EDT): Will refer to Urology Needs incontinence supplies Palpitations 10/30/2023 Assessment & Plan (03/18/2024 2:53 PM EDT): Intermittent Referred to cardiology referral for Holter Seen on 03/05/2024. They recommended a Pharmacological stress test and a Holter Monitor Assessment & Plan (02/14/2024 9:32 AM EDT): Intermittent Referred to cardiology referral for Holter Appt on 03/06/2024 @1:15PM. Assessment & Plan (10/30/2023 3:17 PM EDT): Intermittent Plan: cardiology referral for Holter Age-related osteoporosis annabella aldridge current pathological fracture 05/31/2023 Assessment & Plan (10/30/2023 3:03 PM EDT): Evaluated by Rheumatology who reviewed her MRI of lumbar spine June 2021 showed moderate benign appearing compression fracture deformities along the superior endplates of the T11 and T12. DEXA 2021 showed osteoporosis based on T- score of-3.5 in the lumbar spine Back then they recommend starting treatment for osteoporosis. Prolia was considered, but there is latex in the needle cap and patient has allergic reaction to latex which is hives. She was prescribed Reclast pt apparently had a severe reaction to it, she was prescribed Alendronate but also did not tolerate Today she states her back pain is almost completely gone Assessment & Plan (05/31/2023 1:06 PM EST): Evaluated by Rheumatology who reviewed her MRI of lumbar spine June 2021 showed moderate benign appearing compression fracture deformities along the superior endplates of the T11 and T12. DEXA 2021 showed osteoporosis based on T- score of-3.5 in the lumbar spine Back then they recommend starting treatment for osteoporosis. Prolia was considered, but there is latex in the needle cap and patient has allergic reaction to latex which is hives. She was prescribed Reclast pt apparently had a severe reaction to it, she was prescribed Alendronate but also did not tolerate Today she states her back pain is almost completely gone COVID-19 virus infection 05/22/2023 Assessment & Plan (05/22/2023 2:26 PM EST): Pt is here for a sick, recently diagnosed with Covid-19 on 05/15 tested positive at home, seen via telehealth by Dr Hopson ( note not available ) who prescribed Paxlovid which she is about to finish. Pt feels better, cough is dry and mild on exam no respiratory distress, lungs are clear to auscultation bilaterally Continue conservative measures finish [place] come back if she develops worsening cough or sob Lung density on x-ray 05/22/2023 Assessment & Plan (09/27/2023 11:48 AM EDT): 05/15/2023 In the ER pt had an x-ray that showed A rounded density overlying the right hilum which probably represents the pulmonary artery, but a lymph node or mass cannot be entirely excluded. No consolidations or pleural effusions are seen. Chest CT 05/22/2023 showed: No worrisome pulmonary findings. Small pulmonary nodules. Assessment & Plan (05/31/2023 11:20 AM EST): 05/15/2023 In the ER pt had an x-ray that showed A rounded density overlying the right hilum which probably represents the pulmonary artery, but a lymph node or mass cannot be entirely excluded. No consolidations or pleural effusions are seen. Last visit I ordered a Chest CT, still going through the authorization process with her insurance Assessment & Plan (05/22/2023 2:36 PM EST): 05/15/2023 In the ER pt had an x-ray that showed A rounded density overlying the right hilum which probably represents the pulmonary artery, but a lymph node or mass cannot be entirely excluded. No consolidations or pleural effusions are seen. Will order a Chest CT Acute pain of right knee 01/16/2023 Assessment & Plan (01/16/2023 12:41 PM EDT): Pt tripped and fell, has had mild to moderate right knee pain. No twisting injury. On exam no effusion, no redness, no swelling, full ROM, no joint instability Plan: Continue conservative treatment , Acetaminophen PRN. Asked to come back if symptoms do not improve or worsen Seborrheic keratosis 12/22/2022 Assessment & Plan (12/22/2022 1:15 PM EDT): 3 on scalp 06/04 , 05/31 and 05/30 1 Left chest 05/31 1 Left pelvic area 1/4 Referral to derm. Chronic midline low back pain without sciatica 0 06/08/2022 Assessment & Plan (05/31/2023 1:08 PM EST): Pt with recent c/o acute on chronic back pain Today she tells me the back pain is almost completely gone Previous MRI of LS spine 06/29/2021 showed: Mild grade 1 degenerative spondylolisthesis at L4-L5 with otherwise normal spinal alignment. Multilevel bilateral facet arthrosis, most apparent at L4-L5, L5-S1 and L3-L4 with ligamentum flavum thickening, disc bulging and disc osteophyte complex, with moderate spinal canal stenosis at L4-L5 and mild spinal canal stenosis at L3-L4. Multilevel moderate and mild degrees of neural foraminal stenosis, most apparent bilaterally at L5-S1 and on the right at L2-L3 and L3-L4 as well as at T10-T11 and T11-T12. Moderate, benign-appearing compression fracture deformities along the superior endplates of T11 and T12 of indeterminate chronicity. Last visit I suspected pt might have a new compression fracture given the severity of the pain For pain control I recommended Tramadol with Acetaminophen Plain films of Thoracic and Lumbar spine as well as rib cage and chest x-ray showed no new compression fractures Assessment & Plan (05/22/2023 2:29 PM EST): Pt with acute on chronic back pain Previous MRI of LS spine 06/29/2021 showed: Mild grade 1 degenerative spondylolisthesis at L4-L5 with otherwise normal spinal alignment. Multilevel bilateral facet arthrosis, most apparent at L4-L5, L5-S1 and L3-L4 with ligamentum flavum thickening, disc bulging and disc osteophyte complex, with moderate spinal canal stenosis at L4-L5 and mild spinal canal stenosis at L3-L4. Multilevel moderate and mild degrees of neural foraminal stenosis, most apparent bilaterally at L5-S1 and on the right at L2-L3 and L3-L4 as well as at T10-T11 and T11-T12. Moderate, benign-appearing compression fracture deformities along the superior endplates of T11 and T12 of indeterminate chronicity. I suspect pt might have a new compression fracture given the severity of the pain Plan: Pain control, pt will restart Tramadol after she finishes Paxlovid. Continue Acetaminophen Plain films of Thoracic and Lumbar spine as well as rib cage and chest x-ray Follow up with me after x-rays Assessment & Plan (06/08/2022 8:11 AM EST): Pt with c/o chronic low back pain when severe 6/10 radiation to both lower extremities associated with fecal incontinence, MRI of LS spine 06/29/2021 showed: Mild grade 1 degenerative spondylolisthesis at L4-L5 with otherwise normal spinal alignment. Multilevel bilateral facet arthrosis, most apparent at L4-L5, L5-S1 and L3-L4 with ligamentum flavum thickening, disc bulging and disc osteophyte complex, with moderate spinal canal stenosis at L4-L5 and mild spinal canal stenosis at L3-L4. Multilevel moderate and mild degrees of neural foraminal stenosis, most apparent bilaterally at L5-S1 and on the right at L2-L3 and L3-L4 as well as at T10-T11 and T11-T12. Moderate, benign-appearing compression fracture deformities along the superior endplates of T11 and T12 of indeterminate chronicity. Incontinence of feces with fecal urgency 023 Assessment & Plan (10/30/2023 3:15 PM EDT): Evaluated by GI MRI of her LS spine was negative for cord impingement or cauda equina Pt needs bed pads Assessment & Plan (06/08/2022 8:14 AM EST): Evaluated by GI MRI of her LS spine was negative for cord impingement or cauda equina History of ataxia 06/08/2022 Assessment & Plan (06/08/2022 8:20 AM EST): resolved Work up included MRI of brain to r/o lacunar infarcts/brain lesions 07/29/2019 showed: No acute infarct, mass lesion, intracranial hemorrhage, or evidence of hydrocephalus. Moderate paranasal sinus mucosal thickening without fluid levels. No gross lesion is seen along the floor of the anterior cranial fossa. Mild degree of brain parenchymal volume loss. Mild to moderate presumed microangiopathy involving the cerebral white matter and central molly. Pt needs help at home. 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 since then she has been on chronic anticoagulation. She had a negative work up for hypercoagulable state. 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 since then she has been on chronic anticoagulation. She had a negative work up for hypercoagulable state. 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 since then she has been on chronic anticoagulation. She had a negative work up for hypercoagulable state. Pt now under the care of Hematology seen last 06/09/2021 She is being followed at [facility] Coumadin clinic Cobalamin deficiency 06/07/2022 Constipation 06/07/2022 Assessment & Plan (06/08/2022 8:22 AM EST): Patient uses Lactulose PRN Essential hypertension 06/07/2022 Assessment & Plan (02/14/2024 9:17 AM EDT): Pt is here for a f/u currently controlled on a regimen of: Metoprolol XR 50 mg po daily and hctz 25 mg po daily. Enalapril was discontinued due to angioedema. Most recent electrolytes, Bun and Creatinine 01/24/2024 were wnl Plan: Continue current regimen patient advised to adhere to a low sodium diet, encouraged about medication compliance, counseled about weight loss. f/u 4 months Assessment & Plan (05/31/2023 11:36 AM EST): Pt is here for a f/u currently controlled on a regimen of: Enalapril 20 mg po BID, Metoprolol XR 50 mg po daily and hctz 25 mg po daily Most recent electrolytes, Bun and Creatinine 04/09/2023 were wnl Plan: Continue current regimen patient advised to adhere to a low sodium diet, encouraged about medication compliance, counseled about weight loss. f/u 4 months Assessment & Plan (01/16/2023 12:01 PM EDT): Pt is here for a f/u currently controlled on a regimen of: Enalapril 20 mg po BID, Metoprolol XR 50 mg po daily and hctz 25 mg po daily Most recent electrolytes, Bun and Creatinine 06/08/2022 were wnl Plan: Continue current regimen patient advised to adhere to a low sodium diet, encouraged about medication compliance, counseled about weight loss. f/u 4 months Assessment & Plan (07/04/2022 10:18 AM EST): Pt is here for a f/u currently uncontrolled on a regimen of: Enalapril 20 mg po BID, Metoprolol XR 50 mg po daily and hctz 25 mg po daily Most recent electrolytes, Bun and Creatinine 06/08/2022 were wnl Plan: Continue current regimen patient advised to adhere to a low sodium diet, encouraged about medication compliance, counseled about weight loss. f/u 4 months Assessment & Plan (06/08/2022 8:09 AM EST): Pt is here for a f/u currently controlled on a regimen of: Enalapril 20 mg po BID, Metoprolol XR 50 mg po daily and hctz 25 mg po daily Most recent electrolytes, Bun and Creatinine 11/25/2021 wnl Plan: Continue current regimen, repeat BMP patient advised to adhere to a low sodium diet, encouraged about medication compliance, counseled about weight loss. f/u 4 months Gastroesophageal reflux disease 06/07/2022 Assessment & Plan (03/18/2024 3:44 PM EDT): On Omeprazole 40 mg po daily Last seen by GI Dr. Baldwin 03/12/2024 Assessment & Plan (09/27/2023 12:04 PM EDT): On pantoprazole 40 mg po daily Assessment & Plan (06/08/2022 8:22 AM EST): On pantoprazole 40 mg po daily Mild intermittent asthma 06/07/2022 Assessment & Plan (03/18/2024 2:55 PM EDT): Pt uses Pro-Air on a prn basis maybe once or twice a month, pt reports wheezing intermittently. Seen by Dr. Aviles Quarter Section Ironer 03/14/2024 he added Nikloai mott recommended full PFTs Assessment & Plan (02/14/2024 9:33 AM EDT): Pt uses Pro-Air on a prn basis maybe once or twice a month, pt reports wheezing intermittently. Assessment & Plan (06/08/2022 8:23 AM EST): Pt gives a Hx of this, uses Pro-Air on a prn basis maybe once or twice a month, pt reports wheezing intermittently. Mixed hyperlipidemia 06/07/2022 Assessment & Plan (10/30/2023 3:05 PM EDT): Pt here for a f/u Patient with elevated lipids. Most recent lipid profile from: Lab Results Component Value Date TRIG 84 09/28/2023 TRIG 82 01/16/2023 CHOL 204 (H) 09/28/2023 CHOL 210 (H) 01/16/2023 LDLCHOLCAL 116 (H) 09/28/2023 LDLCHOLCAL 125 (H) 01/16/2023 HDL 72 09/28/2023 HDL 69 01/16/2023 Currently on Simvastatin 10 mg po at bedtime, will repeat LFTs and Lipid profile advised to try to adhere to a low cholesterol diet, counseled and educated about diet and exercise, Patient encouraged to come up with a personal goal for weight loss. Assessment & Plan (09/27/2023 11:45 AM EDT): Pt here for a f/u Patient with elevated lipids. Most recent lipid profile from: 06/08/2022 shows a total cholesterol of: 186 triglycerides of: 68 HDL of: 78 and LDL of: 99 Currently on Simvastatin 10 mg po at bedtime, will repeat LFTs and Lipid profile advised to try to adhere to a low cholesterol diet, counseled and educated about diet and exercise, Patient encouraged to come up with a personal goal for weight loss. Assessment & Plan (07/02/2022 10:06 AM EST): Pt here for a f/u Patient with elevated lipids. Most recent lipid profile from: 06/08/2022 shows a total cholesterol of: 186 triglycerides of: 68 HDL of: 78 and LDL of: 99 Currently on Pravastatin 20 mg po at bedtime, advised to try to adhere to a low cholesterol diet, counseled and educated about diet and exercise, Patient encouraged to come up with a personal goal for weight loss. Assessment & Plan (06/08/2022 8:16 AM EST): Pt here for a f/u Patient with elevated lipids. Most recent lipid profile from: 11/25/2021 shows a total cholesterol of: 245 triglycerides of: 66 HDL of: 68 and LDL of: 168 Currently on Atorvastatin 20 mg po at bedtime, will repeat and adjust if necessary advised to try to adhere to a low cholesterol diet, counseled and educated about diet and exercise, Patient encouraged to come up with a personal goal for weight loss. Recurrent major depressive episodes, moderate Assessment & Plan (06/08/2022 8:21 AM EST): Pt struggling with depression after she lost her son. She is currently under the care of a psychotherapist Symone Arce at [facility] and [facility] [phone] Javi Oshea On Duloxetine 20 mg capsule daily and temazepam 15 mg po qhs Rheumatoid arthritis 06/07/2022 Assessment & Plan (03/18/2024 2:56 PM EDT): Pt is here for a f/u She has RA diagnosed in 2000 She is followed at [facility] Rheumatology. Previously she was under the care of Raiza stauffer tel: [phone] In the past she was on Humira and Prednisone with no good results. She was on Methotrexate, Kevsara nd Folic acid As per Rheumatology She is now back on leflunomide with the hope that she will not have this the same side effects as on methotrexate. Pt with persistent left ankle swelling This can be because of her RA or gout. Seen by Ortho , they were not able to aspirate any crystals or WBCs. She was last seen by Rheumatology 03/04/2024. She is on Leflunomide 20 mg po daily Assessment & Plan (02/14/2024 9:22 AM EDT): Pt is here for a f/u She has RA diagnosed in 2000 She is followed at [facility] Rheumatology, last note 11/27/2022 Previously she was under the care of Raiza stauffer tel: [phone] In the past she was on Humira and Prednisone with no good results. She was on Methotrexate, Kevsara nd Folic acid As per Rheumatology She is now back on leflunomide with the hope that she will not have this the same side effects as on methotrexate. Pt with persistent left ankle swelling This can be because of her RA or gout. Seen by Ortho , they were not able to aspirate any crystals or WBCs. She was last seen by Rheumatology 11/01/2023. She is on Leflunomide 20 mg po daily Assessment & Plan (10/30/2023 3:15 PM EDT): Pt is here for a f/u She has RA diagnosed in 2000 She is followed at [facility] Rheumatology, last note 11/27/2022 Previously she was under the care of Raiza stauffer tel: [phone] In the past she was on Humira and Prednisone with no good results. She was on Methotrexate, Kevsara nd Folic acid As per Rheumatology She is now back on leflunomide with the hope that she will not have this the same side effects as on methotrexate. Pt with persistent left ankle swelling This can be because of her RA or gout. Seen by Ortho , they were not able to aspirate any crystals or WBCs. Follow-up with Rheumatology in 2 days 11/01/2023 Assessment & Plan (09/27/2023 12:01 PM EDT): Pt is here for a f/u She has RA diagnosed in 2000 She is followed at [facility] Rheumatology, last note 11/27/2022 Previously she was under the care of Raiza stauffer tel: [phone] In the past she was on Humira and Prednisone with no good results. She was on Methotrexate, Kevsara nd Folic acid As per Rheumatology last note, he Is considering starting her on leflunomide with the hope that she will not have this the same side effects as on methotrexate. Pt recently presented with ankle swelling This can be because of her RA or gout. Seen by Ortho , they were not able to aspirate any crystals or WBCs. She is on prednisone to completion then reassess her in a month once the ankle is resolved. [employer] to consider to try another medication for her RA if she has swelling and pain in her hands again. Follow-up with Rheumatology Assessment & Plan (01/16/2023 12:46 PM EDT): Pt is here for a f/u She has RA diagnosed in 2000 She is followed at [facility] Rheumatology, last note 11/27/2022 Previously she was under the care of Raiza stauffer tel: [phone] In the past she was on Humira and Prednisone with no good results. She was on Methotrexate, Kevsara nd Folic acid As per Dr Ghotra last note she is undergoing work up for her back pain and will have a LS MRI. He is considering restarting her back on Methotrexate Assessment & Plan (07/04/2022 10:24 AM EST): Pt is here for a f/u She has RA diagnosed in 2000 She is followed at [facility] Rheumatology, last note 03/14/2022 Previously she was under the care of Raiza stauffer tel: [phone] In the past she was on Humira and Prednisone with no good results. She was on Methotrexate, Kevsara nd Folic aci, but her [employer] recently held them due to a low WBC count of 3.2 she is getting weekly CBCs Assessment & Plan (06/08/2022 10:21 AM EST): Pt is here for a f/u She has RA diagnosed in 2000 She is followed at [facility] Rheumatology, last note 03/14/2022 Previously she was under the care of Raiza stauffer tel: [phone] In the past she was on Humira and Prednisone with no good results. She was on Methotrexate, Kevsara nd Folic aci, but her [employer] recently held them due to a low WBC count of 3.2 she is getting weekly CBCs Tubular adenoma of colon 06/07/2022 Assessment & Plan (03/18/2024 3:53 PM EDT): Colonoscopy: 11/14/2017 showed Tubular Adenoma 5 yr f/u recommended Pt referred to Dr. Baldwin, seen 03/12/2024 scheduled for colonoscopy at [facility] 03/25/2024 Assessment & Plan (06/08/2022 8:25 AM EST): Colonoscopy: 11/14/2017 showed Tubular Adenoma 5 yr f/u recommended Encounters Date Type Department Care Team Description 06/13/2024 Orders Only [facility] External Provider, [facility] 06/10/2024 Refill [facility]ED[facility] [address] [place] [address] Erik Gibbs MD 05/13/2024 Abstract [facility] MEDICINE [address] [place] [address] Erik Gibbs MD 04/28/2024 Orders Only [facility] External Provider, [facility] 04/08/2024 Abstract [facility] MEDICINE [address] [place] [address] Erik Gibbs MD from Last 3 Months Immunizations Name Administration Dates Next Due Hep B, adult 07/17/2019,03/07/2017,02/07/2017 Influenza High-dose Quadriva lent Preservative Free 02/21/2022,03/03/2021 Influenza injectable quadriv alent preservative free 07/17/2019 Influenza, High Dose Seasona l, Preservative Free 02/14/2024 Pfizer Covid-19 Vaccine 12+ 03/18/2024 Pfizer Covid-19 Vaccine 12+ Bivalent 05/13/2021 Pneumococcal Conjugate PCV 13 05/26/2021 Pneumococcal Conjugate PCV 20 09/14/2023 RSV Bivalent 06/28/2023 Tdap 03/26/2019,05/02/2016 Zoster, Recombinant 09/14/2023,06/28/2023 Zoster, live 05/02/2016 Social History Tobacco Use Types Packs/Day Years Used Date Smoking Tobacco: Never Passive Smoke Exposure: Never Smokeless Tobacco: Never Tobacco Cessation:Counseling Given: Not Answered Alcohol Answer Date Recorded Frequency of Alcohol [...] Orientation Straight 03/27/2022 10 :23 AM EDT Last Filed Vital Signs Vital Sign Reading Time Taken Comments Blood Pressure 144/82 03/18/2024 3:38 PM EDT Pulse 82 03/18/2024 3:38 PM EDT Temperature 36.1 ??C (96.9 ??F) 03/18/2024 3:38 PM ED T Respiratory Rate 20 03/18/2024 3:38 PM EDT Oxygen Saturation 95% 03/18/2024 3:38 PM EDT Inhaled Oxygen Concentration - - Weight 75.9 kg (167 lb 6.4 oz) 03/18/2024 3:38 P M EDT Height 160 cm (5' 3 ) 03/18/2024 3:38 PM EDT Body Mass Index 29.65 03/18/2024 3:38 PM EDT Plan of Treatment Health Maintenance Due Date Last Done Comments Depression Screening 09/26/2024 09/27/2023, 09/27/19 SDOH Screening 09/26/2024 09/27/2023 Alcohol/Substance Use Screening 03/18/2025 03/18/2024 Tobacco Screening 03/18/2025 03/18/2024 Lipid Panel 09/27/2028 09/28/2023, 0806/2022, 06/08/2022, Additional history exists DTaP/Tdap/Td Vaccines (3 - Td or Tdap) 03/26/2029 03/26/2019, 05/02/2016 Hepatitis B Vaccines Completed 07/17/2019, 03/07/2017, 02/07/2017 RSV Patients and Patients Aged 60 years or older Completed 06/28/2023 Pneumococcal Vaccine: 65+ Years Completed 09/14/2023, 05/26/2021 Zoster Vaccines Completed 09/14/2023, 02/05/2023, 05/02/2016 Influenza Vaccine Completed 02/14/2024, , 03/03/2021, Additional history exists Hepatitis C Screening Completed 02/27/2024 , 07/10/2022, 10/24/2019 COVID-19 Vaccine Completed 03/18/2024, , 05/13/2021, Additional history exists Colonoscopy Discontinued 03/25/2024 Colorectal Cancer Screening Discontinued CT Colonography Discontinued FIT DNA/Cologuard Discontinued FIT Discontinued FOBT Discontinued HIB Vaccines Aged Out No longer eligi ble based on patient's age to complete this topic HPV Vaccines Aged Out No longer eligi ble based on patient's age to complete this topic Hepatitis A Vaccines Aged Out No long er eligible based on patient's age to complete this topic IPV Vaccines Aged Out No longer eligi ble based on patient's age to complete this topic Meningococcal Vaccine Aged Out No isma aleisha eligible based on patient's age to complete this topic RSV under 20 months Aged Out No longe r eligible based on patient's age to complete this topic Rotavirus Vaccines Aged Out No longer eligible based on patient's age to complete this topic Sigmoidoscopy Discontinued Goals Goal Patient Goal Type Associated Problems Recent Progress Patient-Stated? Author Blood Pressure < 150/90 Blood Pressure 144/82( 024 3:38 PM EDT) No Maxwell Davis Procedures Procedure Name Priority Date/Time Associated Diagnosis Comments STRESS TEST WITH MYOCARDIAL PERFUSION Routine 06/13/2024 8:28 AM EST BI MAMMOGRAM SCREENING TOMOSYNTHESIS BILATERAL Routine 05/05/2024 12:00 PM EST Encounter for screening mammogram for malignant neoplasm of breast MAMMOGRAPHY Routine 05/05/2024 US RETROPERITONEAL COMPLETE Routine 04/28/2024 10:45 AM EST COLONOSCOPY Routine 03/25/2024 HEPATITIS PANEL, GENERAL Routine 02/27/2024 2:38 PM EDT LIPID PANEL, STANDARD Routine 09/28/2023 10:45 AM EDT Mixed hyperlipidemia from Last 3 Months or Most Recently Relevant to Health Maintenance Results * Stress test with myocardial perfusion (06/13/2024 8:28 AM EST) 06/13/2024 8:28 AM EST Narrative [facility] - 06/16/2024 5:05 PM EST ? [facility] ?[address] ?[place] [address] ?Nuclear Medicine Report ? Signed ? Patient: Craft,Vicky ?MR#: [id number] ?? 55 ? : 1945 ?Acct:[id number] ? Age/Sex: 79 / F ?ADM Date: 06/13/24 ? Loc: HO.CARD ? Attending Dr: Abdulkadir Saucedo MD ? Ordering Physician: Abdulkadir Saucedo MD ?? Date of Service: 06/13/24 ?? Procedure(s): NM cardiolite stress test ?? Accession Number(s): [id number] ? cc: Erik Farrar MD; Abdulkadir Saucedo [...] 05:00 PM EST RP ? Dictated By: ?Gordo Vera MD ? Signed By: ?<Electronically signed by Gordo Vera MD in OV> ?06/16/24 1700 ? DD/ 0828 ? TD/TT: 06/16/24 0915 ? Greeting Card Editor: ? Procedure Note Tess Burnham - 06/16/2024 [place] [address] Nuclear Medicine Report Signed Patient: Vicky CraftMR#: [id number] 55 : 5Acct:[id number] Age/Sex: 79 / FADM Date: 06/13/24 Loc: ANDREZ Attending Dr: Abdulkadir Saucedo MD Ordering Physician: Abdulkadir Saucedo MD Date of Service: 06/13/24 Procedure(s): NM cardiolite stress test Accession Number(s): [id number] cc: Erik Farrar MD; Abdulkadir Saucedo MD [...] 06/16/24 1700 DD/ 0828 TD/TT: 06/16/24 0915 Greeting Card Editor: us [facility] External Provider CV STRE SS PROCEDURES Final Result [facility] [address] [place] [address] * BI Mammogram Screening Tomosynthesis Bilateral (05/05/2024 12:00 PM EST) Anatomical Region Laterality Modality Breast Bilateral Mammography 05/05/2024 12:0 0 PM EST Narrative 05/09/2024 5:14 PM EST ? [facility] ? [address] ?[place] [address] ? Mammography Report ? Signed ? Patient: Craft,Vicky ?MR#: [id number] ?? 55 ? : 1945 ?Acct:[id number] ? Age/Sex: 79 / F ?ADM Date: 05/05/24 ? Loc: HO.MAMMO ? Attending Dr: Erik Farrar MD ? Ordering Physician: Erik Farrar MD ?Resu ?? lts: 1Negative ? Date of Service: 05/05/24 ?Follow Up: 1 Year From Orig ?? inal Mammogram ? Procedure(s): MM tomosynthesis screening BI ?? Accession Number(s): [id number] ? cc: Erik Farrar MD ? EXAMINATION: ?? MM SCREENING DIGITAL BREAST TOMOSYNTHESIS, BILATERAL ? CLINICAL INFORMATION: ? Screening. Asymptomatic. ? COMPARISON: ?? Mammography: Comparison is made with available priors ? TECHNIQUE: ?? Digital breast mammography with tomosynthesis is performed in both the ?? craniocaudal and mediolateral oblique views along with computer-aided ?? detection (CAD). ? FINDINGS: ?? There are scattered areas of fibroglandular density (ACR BI-RADS breast ?? composition Category b). ? There are no significant masses, abnormal calcifications, or other ?? abnormalities. ? MM/MM tomosynthesis screening BI ?? IMPRESSION: ?? No mammographic evidence of malignancy. ? ASSESSMENT: ? BI-RADS BI-RADS 1 - Negative ? RECOMMENDATION: ?? Routine annual mammography screening. ? 1 year F/U ? This examination should not preclude the clinical evaluation of a ?? suspicious palpable abnormality. ? This patient's information was entered into a reminder system with a ?? target due date for their next mammogram. ? Electronically signed by: ??Leatha Victor DO ??05/09/2024 05:11 PM EST ?? RP ? Dictated By: ?Leatha Victor DO ? Signed By: ?<Electronically signed by Leatha Victor, DO in OV> ? 05/09/24 1711 ? DD/ 1200 ? TD/TT: 05/05/24 1215 ? Greeting Card Editor: ? Procedure Note Clivegeovannavinkatia, Image - [facility]/09/2024 [facility] [address] [place] [address] Mammography Report Signed Patient: Vicky CraftMR#: [id number] 55 : 5Acct:[id number] Age/Sex: 79 / FADM Date: 05/05/24 Loc: HO.MAMMO Attending Dr: Erik Farrar MD Ordering Physician: Erik Farrar MDResu lts: 1Negative Date of Service: 05/05/24Follow Up: 1 Year From Orig inal Mammogram Procedure(s): MM tomosynthesis screening BI Accession Number(s): [id number] cc: Erik Farrar MD EXAMINATION: MM SCREENING DIGITAL BREAST TOMOSYNTHESIS, BILATERAL CLINICAL INFORMATION: Screening. Asymptomatic. COMPARISON: Mammography: Comparison is made with available priors TECHNIQUE: Digital breast mammography with tomosynthesis is performed in both the craniocaudal and mediolateral oblique views along with computer-aided detection (CAD). FINDINGS: There are scattered areas of fibroglandular density (ACR BI-RADS breast composition Category b). There are no significant masses, abnormal calcifications, or other abnormalities. MM/MM tomosynthesis screening BI IMPRESSION: No mammographic evidence of malignancy. ASSESSMENT: BI-RADS BI-RADS 1 - Negative RECOMMENDATION: Routine annual mammography screening. 1 year F/U This examination should not preclude the clinical evaluation of a suspicious palpable abnormality. This patient's information was entered into a reminder system with a target due date for their next mammogram. Electronically signed by: Leatha Victor DO 05/09/2024 05:11 PM EST Dictated By: Leatha Victor DO Signed By: <Electronically signed by Leatha Victor DO in OV> 05/09/24 1711 DD/ 1200 TD/TT: 05/05/24 1215 Greeting Card Editor: Erik Ortiz MD IMG BI PROCEDURES Fin al Result * Mammography (05/05/2024) Mammogram BIRADS 1 Normal, Abnormal, BIRADS 1 , BIRADS 2 Anatomical Region Laterality Modality Other Erik Ortiz MD [facility]ALTH [facility] nal Result * US Retroperitoneal Complete (04/28/2024 10:45 AM EST) Anatomical Region Laterality Modality Ultrasound 04/28/2024 10:4 5 AM EST Narrative 05/20/2024 9:05 AM EST ? [facility] ?[address] ?[place] [address] ? Ultrasound Report ? Signed ? Patient: Craft,Vicky ?MR#: [id number] ?? 55 ? : 1945 ?Acct:[id number] ? Age/Sex: 79 / F ?ADM Date: 04/28/24 ? Loc: HO.US ? Attending Dr: Kisha Blair MD ? Ordering Physician: Kisha Blair MD ?? Date of Service: 04/28/24 ?? Procedure(s): US retroperitoneal comp ?? Accession Number(s): [id number] ? cc: Kisha Blair MD; Erik Farrar MD ? EXAMINATION: ?? US RETROPERITONEAL COMPLETE (RENAL) ? CLINICAL INFORMATION: ?? Unspecified urinary incontinence. ? COMPARISON: ?? CT abdomen and pelvis 02/02/2022. X-ray abdomen KUB 04/01/2019. ? TECHNIQUE: ?? Real-time imaging of the kidneys and bladder. ? FINDINGS: ? RIGHT KIDNEY: 8.8 x 3.7 x 4.2 cm (SAG x AP x TRV). The kidney is normal ?? in size, contour, and echogenicity. Renal cortical thickness is normal. ?? No calculi or focal parenchymal lesions. No hydronephrosis. ? LEFT KIDNEY: 9.0 x 4.1 x 6.1 cm (SAG x AP x TRV). The kidney is normal ?? in size, contour, and echogenicity. Renal cortical thickness is normal. ?? No calculi or focal parenchymal lesions. No hydronephrosis. ? BLADDER: Well distended and normal. Bilateral ureteral jets are not ?? demonstrated. Prevoid bladder volume is 206.13 mL. There is no postvoid ?? residual. ? US/US retroperitoneal comp ?? IMPRESSION: ?? Normal examination of the kidneys and urinary bladder.. ? Electronically signed by: ??Waqas Hdez MD ??05/20/2024 09:02 AM EST RP ? Dictated By: ?Waqas Hdez MD ? Signed By: ?<Electronically signed by Waqas Hdez MD in OV> ?05/20/24 0902 ? DD/ 1045 ? TD/TT: 04/28/24 1140 ? Greeting Card Editor: ? Procedure Note Tess Burnham - 05/20/[address] [address] Ultrasound Report Signed Patient: Vicky CraftMR#: [id number] 55 : 5Acct:[id number] Age/Sex: 79 / FADM Date: 04/28/24 Loc: HO.US Attending Dr: Kisha Blair MD Ordering Physician: Kisha Blair MD Date of Service: 04/28/24 Procedure(s): US retroperitoneal comp Accession Number(s): [id number] cc: Kisha Blair MD; Erik Farrar MD EXAMINATION: US RETROPERITONEAL COMPLETE (RENAL) CLINICAL INFORMATION: Unspecified urinary incontinence. COMPARISON: CT abdomen and pelvis 02/02/2022. X-ray abdomen KUB 04/01/2019. TECHNIQUE: Real-time imaging of the kidneys and bladder. FINDINGS: RIGHT KIDNEY: 8.8 x 3.7 x 4.2 cm (SAG x AP x TRV). The kidney is normal in size, contour, and echogenicity. Renal cortical thickness is normal. No calculi or focal parenchymal lesions. No hydronephrosis. LEFT KIDNEY: 9.0 x 4.1 x 6.1 cm (SAG x AP x TRV). The kidney is normal in size, contour, and echogenicity. Renal cortical thickness is normal. No calculi or focal parenchymal lesions. No hydronephrosis. BLADDER: Well distended and normal. Bilateral ureteral jets are not demonstrated. Prevoid bladder volume is 206.13 mL. There is no postvoid residual. US/US retroperitoneal comp IMPRESSION: Normal examination of the kidneys and urinary bladder.. Electronically signed by: Waqas Hdez MD 05/20/2024 09:02 AM [facility] Dictated By: Waqas Hdez MD Signed By: <Electronically signed by Waqas Hdez MD in OV> 05/20/24 0902 DD/ 1045 TD/TT: 04/28/24 1140 Greeting Card Editor: [facility] External Provider IMG US PROCEDURES Edited Result - Final * (ABNORMAL) Colonoscopy (03/25/2024) Colonoscopy Abnormal(A ) Normal 03/25/2024 Erik Ortiz MD HEALTH MAINTENANCE Fi nal Result * Hepatitis Panel, General (02/27/2024 2:38 PM EDT) Hepatitis A IgM Nonreactive Nonreactive [facility] Comment:IgM antibodies to BARRETO V not detected; does not exclude earlyacute or recovered HAV infection. ~Hepatitis B Surface Antibody NONREACTIVE Nonreactive [facility] Comment:Nonreactive: < 8.00 mIU/mL Hepatitis B Core Antibody Nonreactive Nonreactive [facility] Hepatitis C Antibody Nonreactive Nonreactive [facility] Comment:Antibodies to HCV no t detected; does not exclude early acuteHCV infection. Hepatitis B Surface Ag Negative Negative [facility] 02/27/2024 2:38 PM EDT 02/27/2024 2:38 PM EDT us Generic External Data Provider LAB BLOOD ORDERAB LES Final Result [facility] [address] [place] [phone] * (ABNORMAL) Lipid Panel, Standard (09/28/2023 10:45 AM EDT) Triglycerides 84 <150 mg/dL [facility] Comment:Desirable Triglyceri de: less than 150 mg/dLBorderline High Triglyceride 150-199 mg/dLHigh Triglyceride: 200-499 mg/dLVery High Triglyceride: greater than or equal to 5OO mg/dL Cholesterol 204(H) <200 mg/dL [facility] Comment:Desirable Cholestero l: less than 200 mg/dLBorderline High Cholesterol: 200-239 mg/dLHigh Cholesterol: greater than 239 mg/dL LDL Cholesterol Calculated 116(H) <100 mg/dL [facility] Comment:Desirable LDL: less than 100 mg/dLNear Optimal/Above Optimal LDL: 110- 129 mg/dLBorderline High LDL: 130-159 mg/dLHigh LDL: 160-189 mg/dLVery High LDL: greater than or equal to 190 mg/dL HDL Cholesterol 72 >40 mg/dL [facility] Comment:Desirable HDL: great er than 40 mg/dL Note: This HDL assay may give artificially low results in patients with liver disease. Blood Venous blood specimen / Unknown 09/28/2023 10:45 AM EDT 09/28/2023 11:35 AM EDT Erik Ortiz MD LAB BLOOD ORDERABLES Final Result [facility] [address] [place] [address] [phone] from Last 3 Months or Most Recently Relevant to Health Maintenance Insurance [facility] Care Teams Face Hardener Relationship Specialty Start Date End Date Erik Gibbs MD [address] [place] [phone] PCP - General Internal Medicine 02/18/19
--- OUTSIDE RECORDS SUMMARY | 2024-06-24 07:42 | XMS_ITS | Encounter Summary ---
Author Organization [facility] Address [address] [place] [address] Care Team Providers Care Analytical Statistician Name Role Phone Erik Motley MD Primary Care Provider [phone] Encounter Details Date Type Department Care Team (Late st Contact Info) Description 07/18/2019 Scanned Document [facility] Rheumatology [address] [phone] Raiza Luis MD Social History Tobacco Use [...] on filedocumented in this encounter Care Teams Analytical Statistician Relationship Specialty Start Date End Date Erik oMtley MD [address] [place] [address] [facility] Services[facility]IGUELINA mishra [phone] PCP - General 07/18/19 documented as of this encounter
--- OUTSIDE RECORDS SUMMARY | 2024-06-24 07:42 | XMS_ITS | Clinical Summary ---
Author Organization [facility] Address [address] [place] [address] Phone Care Team Providers Care Welder [employer] Name Role Phone Erik Farrar MD Primary Care [facility] Encounters Date Type Department Care Team Description 03/25/2024 8:13 AM EDT - 03/25/2024 11:55 PM EDT Hospital Encounter [facility] Endoscopy [address] [place] [address] Lila Busby MD Discharge Disposition: Home or Self Care from Last 3 Months Surgical History Surgery Date Site/Laterality Comments HYSTERECTOMY 1993 PROCEDURE: HISTORICAL HYSTERECTOMY GASTRIC BYPASS 2000 PROCEDURE: GASTRIC BYPASS FOR OBESIT OTHER SURGICAL HISTORY 10/23/2013 PROCEDURE: UPPER GASTROINTESTINAL ENDOSCOPY IN; COMMENT: Normal COLONOSCOPY 03/01/2012 PROCEDURE: HISTORICAL COLONOSCOPY; COMMENT: Diverticulosis, external hemorrhoids COLONOSCOPY 03/12/2007 PROCEDURE: HISTORICAL COLONOSCOPY; COMMENT: Normal OTHER SURGICAL HISTORY 03/12/2007 PROCEDURE: UPPER GASTROINTESTINAL ENDOSCOPY IN; COMMENT: Normal OTHER SURGICAL HISTORY 11/13/2017 PROCEDURE: UPPER GASTROINTESTINAL ENDOSCOPY IN; COMMENT: normal, evidence of a patent Billroth II gastrojejunostomy. gastric bx showed mild chronic inflammation COLONOSCOPY 11/13/2017 PROCEDURE: HISTORICAL COLONOSCOPY; COMMENT: diverticulosis in the sigmoid, ascending, descending. Internal hemorrhoids. One diminutive tubular adenoma. CHOLECYSTECTOMY PROCEDURE: MA LAPAROSCOPY SURG CHOLECYSTECTOMY Medical History Medical History Date Comments Esophageal reflux DX:Esophageal reflux Depression 08/21/2014 DX:Depression Diverticulosis 07/31/2014 DX:Diverticulosi s HTN (hypertension) 07/31/2014 DX:HTN (hyper tension) Vitamin D deficiency 08/18/2015 DX:Vitamin D deficiency Osteoporosis 08/18/2015 DX:Osteoporosis Chronic insomnia 08/18/2015 DX:Chronic inso mnia Chronic constipation 04/05/2016 DX:Chronic constipation Major depressive disorder wi th single episode 07/07/2016 DX:Major depressive disorder with single episode Mild cognitive impairment wi th memory loss 09/05/2017 DX:Mild cognitive impairment with memory loss Hyperlipidemia 09/06/2017 DX:Hyperlipidemi a Hemorrhoids 11/09/2017 DX:Hemorrhoids; COMMENT: external Deep venous thrombosis of lo wer extremity (CMS/HCC) 08/11/2015 DX:Deep venous thrombosis of lower extremity (HCC); COMMENT: S/p IVC filter b/l 2001 Osteoarthritis 03/03/2016 DX:Osteoarthriti s; COMMENT: Cervical spine, shoulders, knees Left knee pain 05/02/2017 DX:Left knee dusty n Neck pain 05/02/2017 DX:Neck pain Shoulder pain, right 05/02/2017 DX:Shoulder pain, right Rheumatoid arthritis with rh eumatoid factor (CMS/HCC) 01/25/2017 DX:Rheumatoid arthritis with rheumatoid factor (HCC) Rheumatoid arthritis flare (CMS/HCC) 07/26/2017 DX:Rheumatoid arthritis flare (HCC) Pulmonary embolus (CMS/HCC) 06/18/2014 DX:P ulmonary embolus (HCC) Popliteal fullness 05/02/2017 DX:Popliteal fullness B12 deficiency 09/22/2016 DX:B12 deficienc y Anxiety 11/13/2016 DX:Anxiety Anticoagulated on warfarin 01/01/2018 DX:An ticoagulated on warfarin Family History Medical History Relation Name Comments Other: thrombophlebitis Brother 1 Colon cancer Brother 2 Other: Thyroid cancer Brother 2 Colon polyps Daughter possibly more t ibrahim 10 in her lifetime Colon cancer Paternal Grandmother Colon polyps Son more than 10 in his lifetime Relation Name Status Comments Brother 1 Brother 2 Daughter Paternal Grandmother Son Social History Tobacco Use Types Packs/Day Years Used Date Smoking Tobacco: Never Smokeless Tobacco: Never Alcohol Use Standard Drinks/Week Comments No 0 (1 standard drink = 0.6 oz pur e alcohol) Sex and Gender Information Value Date Recorded Sex Assigned at Not on file Gender Identity Not on file Sexual Orientation Not on file Obstetrics History Last Filed Vital Signs Vital Sign Reading Time Taken Comments Blood Pressure 124/82 09/03/2023 2:41 PM EDT Pulse 78 09/03/2023 2:41 PM EDT Temperature - - Respiratory Rate - - Oxygen Saturation - - Inhaled Oxygen Concentration - - Weight 77.1 kg (170 lb) 09/03/2023 2:41 PM EDT Height 160 cm (5' 3 ) 09/03/2023 2:41 PM EDT Body Mass Index 30.11 09/03/2023 2:41 PM EDT Plan of Treatment Health Maintenance Due Date Last Done Comments Zoster Vaccines (1 of 2) 1995 Pneumococcal Vaccine: 65+ Years (1 of 1 - PCV) 2010 Hepatitis B Vaccines (3 of 3 - 19+ 3-dose series) 08/07/2017 03/07/2017, 02/07/2017 RSV Immunization Patients 60 + Years Old (1 - 1-dose 75+ series) 01/09/2020 Cholesterol Screening (Lipid Panel) 05/06/2022 Colorectal Cancer Screening: Colonoscopy 05/06/2022 Depression Screening 05/06/2022 Falls Risk Assessment 05/06/2022 Hepatitis C Screening 05/06/2022 Osteoporosis Screening (Bone Density Screening) 05/06/2022 Social Influencers of Health Screening 05/06/2022 Hypertension/CHF/CAD Annual BMP Blood Test 05/12/2022 COVID-19 Vaccine ( - 2023-2 5 season) 2024 Influenza Vaccine (#1) 2024 DTaP,Tdap,and Td Vaccines (2 - Td or Tdap) 05/02/2026 05/02/2016 HIB Vaccines Aged Out No longer eligi [...] on patient's age to complete this topic MMR Vaccines Aged Out No longer eligi ble based on patient's age to complete this topic Meningococcal ACWY Vaccine Aged Out N o longer eligible based on patient's age to complete this topic RSV Immunization Patients Under 20 months Aged Out No longer eligible b ased on patient's age to complete this topic Varicella Vaccines Aged Out No longer eligible based on patient's age to complete this topic Procedures Procedure Name Priority Date/Time Associated Diagnosis Comments ECG 03/25/2024 from Last 3 Months Results * ECG (03/25/2024) Provider Onbase CV HISTORICAL CONV P ROCEDURES from Last 3 Months Care Teams Welder Metal [employer] Relationship Specialty Start Date End Date Erik Farrar MD [address] [place] [address] [place] [phone] PCP - General Internal Medicine 02/19/19
--- OUTSIDE RECORDS SUMMARY | 2024-06-24 07:43 | XMS_ITS | Encounter Summary ---
Author Organization [facility] Address [address] [place] [address] Care Team Providers Care Plant Science Professor Name Role Phone Jacob Manuel MD Primary Care Provider Pcp, No Primary Care Provider Erik Hamilton MD Primary Care Provider [phone] Encounter Details Date Type Department Care Team (Late st Contact Info) Description 12/13/2018 Scanned Document [facility] Rheumatology [address] [phone] Raiza Luis MD Social History Tobacco Use [...] on filedocumented in this encounter Care Teams Plant Science Professor Relationship Specialty Start Date End Date Jacob Manuel MD [address] [place] [phone] PCP - General Internal Medicine 11/08/18 04/29/19 Pcp, No PCP - General 05/19/19 07/17/19 Erik Motley MD [address] [place] [address] [place] [address] PCP - General 07/18/19 documented as of this encounter
--- OUTSIDE RECORDS SUMMARY | 2024-06-24 07:43 | XMS_ITS | Patient Health Record ---
Author Organization [facility] Address [address] [place] [phone] Care Team Providers Care Sales Representative Aircraft Name Role Phone Tolu Ortiz MD, Erik Primary Care Provide r Jorge Mitchell Jr Unavailable ALLERGIES Allergen (clinical drug ingredient) Drug/Non Drug Allergy documented on EMR Reaction Allergy Type Onset Date Status Penicillin Unknown Drug Allergy Active Substance with sulfonamide structure and antibacterial mechanism of action (substance) Sulfa Antibiotics Unknown Drug Allergy Active Reclast Unknown Drug Allergy Active IV DYE (uncoded) Unknown Allergy Act mirna [...] Notes Problem Epigastric pain (R10.13) Active confirmed [id number] VITAL SIGNS Temperature 98.0 degrees Fahrenheit 03/12/2024 Blood pressure diastolic 00 mm Hg 03/12/2024 Height 5 ft 3 in in 03/12/2024 Blood pressure systolic 000 mm Hg 03/12/2024 Weight 167 lb 2 oz lbs 03/12/2024 BMI 29.60 kg/m2 03/12/2024 Encounters Encounter Location Date Provider Diagnosis [facility] [address] [facility] [address] [place] [phone] 03/12/2024 Jorge Baldwin Jr Epigastric pain R10.13 ASSESSMENTS Encounter Date Diagnosis Assessment Notes Treatment Notes Treatment Clinical Notes 03/12/2024 Epigastric pain (ICD-10 - R10.13) Abdominal pain material was printed PLAN OF TREATMENT Next Appt Details Provider Name:Jorge salazar , 09/22/2024 11:10:00 AM, [address] [facility], [address], [place], [address], Insurance Providers Payer Name Payer Address Payer Phone Subscriber Number Group Number Insured Name Patient Relationship to Insured Coverage Start Date Coverage End Date [facility] [address] Attn Claims SHYANNE Stubbs [id number] KAYLIE OROZCO Self - patient is the insured MEDICAL (GENERAL) HISTORY Medical History History ICD Code Asthma Hypertension Rheumatoid arthritis Osteoarthritis Fibromyalgia Irritable bowel syndrome Pulmonary embolism Surgical History Surgery Date(Month/Year) gastric bypass 2000 Appendectomy Cholecystectomy Hysterectomy
--- OUTSIDE RECORDS SUMMARY | 2024-06-24 07:43 | XMS_ITS | Encounter Summary ---
Author Organization [employer] Address [address] [facility] 7t [place] [address] Care Team Providers Care User Experience Developer Name Role Phone Erik Gibbs MD Primary Care Provide r Encounter Details Date Type Department Care Team ([facility] st Contact Info) Description 05/08/2023 Telephone [facility] MEDICINE [address] [place], [place] [phone] Erik Gibbs MD 230 [place], [place] [phone] Social History Tobacco Use Types Packs/Day Years Used Date Smoking Tobacco: Never Passive Smoke Exposure: Never Smokeless Tobacco: Never Depression Answer Date Recorded Patient Health Questionnaire-9 Score 0 07/04/2022 Housing Stability Answer Date Recorded What is your housing situation today? I have ella hickey 03/12/[address] you li ve. Do you have problems with any of the following? None of the above 03/12/2023 Food Insecurity Answer Date Recorded Within the past 12 months, y ou worried that your food would run out before you got money to buy more: Never True 03/12/2023 Within the past 12 months,th e food you bought just didn't last and you didn't have enough money to get more: Never True Transportation Answer Date Recorded In the past 12 months, has l ack of transportation kept you from medical appts, meetings, work or from getting things needed for daily living? No 03/12/2023 Utilities Answer Date Recorded In the past 12 months, has t he electric, gas, oil or water company threatened to shut off services in your home? No 03/12/2023 Depression Answer Date Recorded Patient Health Questionnaire-2 Score 0 07/04/2022 Comments Unknown Sex and Gender Information Value Date Recorded Sex Assigned at Female 03/27/2022 10:23 AM EDT Legal Sex Female 10:23 AM EDT Gender Identity Female 03/27/2022 10:23 AM EDT Sexual Orientation Straight 03/27/2022 10 :23 AM EDT documented as of this encounter Miscellaneous Notes * Telephone Encounter - Keke Rboison LPN - 05/08/2023 2:04 PM EST Critical Result Line call received at this time. Patients INR today is 1 Patient has been on Warfarin hold x 5 days pending spinal injection today. Jennifer has reached out to family and patient several times to follow with post procedural dose plan. Per note from clinic MD patient may resume Warfarin 24 hours post procedure 05/09/23. Warfarin Plan per Jennifer is Warfarin 6mg .Sunday. Warfarin 3mg Sat and Sun and recheck on Sunday. Jennifer will call back if there are any changes with patient post procedure. INR today was obtained at home. documented in this encounter Plan of Treatment Not on file documented as of this encounter Visit Diagnoses Not on filedocumented in this encounter Additional Health Concerns Assessment Noted Time PHQ-9 Depression Total Score: 0 07/04/19 23 10:11 AM EST documented as of this encounter Care Teams User Experience Developer Relationship Specialty Start Date End Date Erik Gibbs MD [address] [place] [id number] PCP - General Internal Medicine 02/18/19 documented as of this encounter
--- OUTSIDE RECORDS SUMMARY | 2024-06-24 07:43 | XMS_ITS | Clinical Summary ---
Author Organization [facility] Address [address] [place] [address] Care Team Providers Care Spray Foam Installer Name Role Phone Erik Motley MD Primary Care Provider [phone] Allergies Active Allergy Reactions Criticality Noted Date Comments Iodinated Contrast Media Other (See Comments) 12/10/2018 vomiting Latex Itching Low 12/10/2018 Penicillins Hives,Itching,Swelli ng Medium 12/10/2018 Zoledronic Acid Shortness Of Breath,Other (See Comments) High 12/10/2018 Unable to speak to move Medications Medication Sig Dispensed Refills Start Date End Date Status warfarin (COUMADIN) 3 MG tablet Take 3 mg by mouth daily. 3 11/27/2018 Active PANTOprazole (PROTONIX) 40 MG EC tablet Take 40 mg by mouth daily. 5 11/24/2018 Active Calcium Carb-Cholecalcifero l (CALCIUM CARBONATE-VITAMIN D3) 600 mg-200 unit Tab tablet Take 1 tablet by mouth daily. 3 11/27/2018 Active enalapril (VASOTEC) 20 MG tablet Take 20 mg by mouth daily. 0 10/22/2018 Active lactulose (ENULOSE) 10 gm/15 mL solution TAKE 15 ML BY MOUTH 2 TIMES DAILY. 3 11/27/2018 Active folic acid (FOLVITE) 1 MG tablet Take 1,000 mcg by mouth daily. 5 10/25/2018 Active DULoxetine (CYMBALTA) 20 MG capsule Take 20 mg by mouth daily. Active cyanocobalamin (VITAMIN B-12) 1000 MCG/ML injection Inject 1,000 mcg under the skin. Active hydroxychloroquine (PLAQUENIL) 200 MG tabletIndications:P olyarthritis with positive rheumatoid factor (HCC) TAKE 2 TABLETS (400 MG TOTAL) BY MOUTH EVERY MORNING WITH BREAKFAST. WITH FOOD OR MILK. 180 tablet 1 04/14/2019 Active LORazepam (ATIVAN) 0.5 MG tablet Take 0.5 mg by mouth 3 times daily (every 8 hours) as needed. Active nystatin (MYCOSTATIN, NYSTOP) 696258 UNIT/GM powderIndications:I ntertriginous dermatitis associated with moisture Apply topically 2 (two) times a day. 15 g 3 04/30/2019 Active albuterol (PROVENTIL HFA; VENTOLIN HFA) 108 (90 Base) MCG/ACT inhaler 04/17/2019 Active ibuprofen (MOTRIN) 400 MG tablet Take 400 mg by mouth 3 (three) times a day as needed. For pain 0 03/30/2019 Active temazepam (RESTORIL) 30 MG capsule 06/11/2019 Active ergocalciferol (VITAMIN D2,DRISDOL) 31883 units CapIndications:Nohemy min D deficiency TAKE 1 CAPSULE BY MOUTH ONE TIME PER WEEK 4 capsule 2 01/11/2020 Active Family History Medical History Relation Name Comments No Known Problems Father Heart disease Mother Hypertension Mother Rheum arthritis Mother Relation Name Status Comments Father Mother Alive Social History Tobacco Use Types Packs/Day Years [...] on file Sexual Orientation Not on file Last Filed Vital Signs Vital Sign Reading Time Taken Comments Blood Pressure 115/72 07/18/2019 10:06 AM EST Pulse 79 07/18/2019 10:06 AM EST Temperature 36.8 ??C (98.2 ??F) 07/18/2019 10:[address] Respiratory Rate - - Oxygen Saturation 97% 07/18/2019 10:06 AM EST Inhaled Oxygen Concentration - - Weight 74.4 kg (164 lb) 07/18/2019 10:06 AM EST Height 160 cm (5' 3 ) 07/18/2019 10:06 AM EST Body Mass Index 29.05 07/18/2019 10:06 AM EST Plan of Treatment Health Maintenance Due Date Last Done Comments COVID-19 Vaccine (#1) 1950 DTaP/Tdap/Td Vaccines (1 - Tdap) 01/09/1964 Pneumococcal Vaccines 50+ (1 of 2 - PCV) 01/09/1964 Zoster (Shingles) Vaccine (1 of 2) 01/09/1964 DXA Bone Density (Females,Ag es 65 and older) 2010 RSV Vaccine 60 years and old er and Patients (1 - 1-dose 75+ series) 01/09/2020 Influenza Vaccine 12/27/2023 Hepatitis C Virus Screening Completed 12/11/2018 Hepatitis B Vaccines Aged Out No long er eligible based on patient's age to complete this topic Procedures Procedure Name Priority Date/Time Associated Diagnosis Comments HEPATITIS C VIRUS (HCV) ANTIBODY Routine 12/11/2018 10:46 AM EDT Inflammatory polyarthritis (HCC) from Last 3 Months or Most Recently Relevant to Health Maintenance Results * Hepatitis C Virus (HCV) Antibody (12/11/2018 10:46 AM EDT) Hepatitis C Antibody NON-REACT KEVIN NON-REACT KEVIN [facility] Hepatitis C Antibody (s/co) 0.06 <1.00 [facility] Comment: HCV antibody was non-reactive. There is no laboratory evidence of HCV infection. In most cases, no further action is required. However, if recent HCV exposure is suspected, a test for HCV RNA (test code 94669) is suggested. For additional information please refer to http://education.B[employer]/faq/DGG08l5 (This link is being provided for informational/ educational purposes only.) Blood specimen (specimen) 12/11/2018 10:46 AM EDT 12/11/2018 10:46 AM EDT Narrative [facility] - 12/17/2018 11:33 AM EDT FASTING:NO LTC ONLY: DIFFICULT DRAW. WILL RETRY ON NEXT SCHEDULED DAY. FASTING: NO Resulting Agency Comment Performing Organization Information: ?Site ID: [id number] ?Name: [employer] ?Address: [address], [place] [address] ?Director: Slava Hendricks MD Raiza Luis MD LAB BLOOD ORDERABLES [facility] [address], [place] [address] from Last 3 Months or Most Recently Relevant to Health Maintenance Care Teams Spray Foam Installer Relationship Specialty Start Date End Date Erik Motley MD [address] [place] [address] [place] [address] PCP - General 07/18/19
--- OUTSIDE RECORDS SUMMARY | 2024-06-24 07:43 | XMS_ITS | Encounter Summary ---
Author Organization [employer] Address [address] [facility] 7t [place] [address] Care Team Providers Care Vertical Mill Operator Name Role Phone Erik Gibbs MD Primary Care Provide r Reason for Visit * Reason Comments Med Refill Encounter Details Date Type Department Care Team ([facility] st Contact Info) Description 06/10/2024 Refill [facility] [address] [place], [place] [phone] Erik Gibbs MD [address] [place] [address] Social History Tobacco Use Types Packs/Day Years [...] Maxwell Davis documented as of this encounter Visit Diagnoses Not on filedocumented in this encounter Additional Health Concerns Assessment Noted Time PHQ-9 Depression Total Score: 1 09/27/19 24 11:43 AM EDT documented as of this encounter Care Teams Vertical Mill Operator Relationship Specialty Start Date End Date Erik Gibbs MD [address] [place] [address] PCP - General Internal Medicine 02/18/19 documented as of this encounter
--- OUTSIDE RECORDS SUMMARY | 2024-06-24 07:43 | XMS_ITS | Encounter Summary ---
Author Organization [facility] Address [address] [place] [address] Care Team Providers Care Cook Mess Name Role Phone Erik Motley MD Primary Care Provider [phone] Encounter Details Date Type Department Care Team (Late st Contact Info) Description 10/31/2019 Scanned Document [facility] Rheumatology [address] [phone] Raiza Luis MD Social History Tobacco Use [...] on filedocumented in this encounter Care Teams Cook Mess Relationship Specialty Start Date End Date Erik Motley MD [address] [place] [address] [facility] [address] PCP - General 07/18/19 documented as of this encounter
--- OUTSIDE RECORDS SUMMARY | 2024-06-24 07:43 | XMS_ITS | Encounter Summary ---
Author Organization [employer] Address [address] [facility] 7t [place] [address] Care Team Providers Care Creative Services Writer Name Role Phone Erik Gibbs MD Primary Care Provide r Encounter Details Date Type Department Care Team ([facility] st Contact Info) Description 05/08/2023 Telephone [facility] MEDICINE [address] [place], [place] [phone] Erik Gibbs MD [address] [place], [place] [phone] Social History Tobacco Use Types Packs/Day Years [...] Miscellaneous Notes * Telephone Encounter - Keke Robison LPN - 05/08/2023 2:59 PM EST Critical result line call received again in regards to this patient from Jennifer HUNTER @ [facility]. Patient presented to Anticoag clinic. She did not have spinal procedure as planned due to complaints of chest pain. Patient advised by that Pain Team to take a baby ASA and to go to ED if symptoms worsened or persisted. Patient sent home with Daughter. Upon obtaining that update Jennifer has changed the warfarin plan. Now Warfarin 6 mg Today , , with a recheck on Sun. Jennifer asking if PCP wants patient to bridge with Lovenox. Please contact patient or Austyn Rodriguez with further instructions. documented in this encounter Plan of Treatment Not on file documented as of this encounter Visit Diagnoses Not on filedocumented in this encounter Additional Health Concerns Assessment Noted Time PHQ-9 Depression Total Score: 0 07/04/19 23 10:11 AM EST documented as of this encounter Care Teams Creative Services Writer Relationship Specialty Start Date End Date Erik Gibbs MD [address] [place] [address] PCP - General Internal Medicine 02/18/19 documented as of this encounter
--- OUTSIDE RECORDS SUMMARY | 2024-06-24 07:43 | XMS_ITS | Encounter Summary ---
Author Organization [employer] Address [address] [facility] 7t [place] [address] Care Team Providers Care Porcelain Slusher Name Role Phone Erik Gibbs MD Primary Care Provide r Reason for Visit * Reason Onset Date Comments Medication Question 05/17/2023 Encounter Details Date Type Department Care Team ([facility] st Contact Info) Description 05/17/2023 Telephone [facility] MEDICINE [address] [place], [place] [phone] Erik Gibbs MD [address] [place], [place] [phone] Medication Question Social History Tobacco Use Types Packs/Day Years Used Date Smoking Tobacco: Never Passive Smoke Exposure: Never Smokeless Tobacco: Never Depression Answer Date Recorded Patient Health Questionnaire-9 Score 0 07/04/2022 Housing Stability Answer Date Recorded What is your housing situation today? I have ellapaul hickey 03/12/[address] you [...] encounter Miscellaneous Notes * Telephone Encounter - Kendra Garcia - 05/17/2023 11:14 AM EST Tc from pt requesting paxlovid. Pt became positive for COVID on 05/15. documented in this encounter Plan of Treatment Not on file documented as of this encounter Visit Diagnoses Not on filedocumented in this encounter Additional Health Concerns Assessment Noted Time PHQ-9 Depression Total Score: 0 07/04/19 23 10:11 AM EST documented as of this encounter Care Teams Porcelain Slusher Relationship Specialty Start Date End Date Erik Gibbs MD [address] [place] [phone] PCP - General Internal Medicine 02/18/19 documented as of this encounter
--- OUTSIDE RECORDS SUMMARY | 2024-06-24 07:43 | XMS_ITS | Encounter Summary ---
Author Organization [facility] Address [address] [place] [address] Care Team Providers Care Cupola Operator Insulation Name Role Phone Jacob Manuel MD Primary Care Provider Pcp, No Primary Care Provider Erik Hamilton MD Primary Care Provider [phone] Encounter Details Date Type Department Care Team (Late st Contact Info) Description 03/31/2019 Scanned Document [facility] Rheumatology [address] [phone] Raiza Luis MD Social History Tobacco Use [...] on filedocumented in this encounter Care Teams Cupola Operator Insulation Relationship Specialty Start Date End Date Jacob Manuel MD [address] [place] [address] PCP - General Internal Medicine 11/08/18 04/29/19 Pcp, No PCP - General 05/19/19 07/17/19 Erki Motley MD [address] [place] [address] [place] [address] PCP - General 07/18/19 documented as of this encounter
--- OUTSIDE RECORDS SUMMARY | 2024-06-24 07:43 | XMS_ITS | Data Portability ---
Author Organization [employer] [facility] Address [address] [place] [phone] Care Team Providers Care Machine Clothing Man Name Role Phone [facility] Referring Provider [facility] Referring Provider Assessment Encounter Date Assessment Date Assessment LastModified by Organization Details LastModified Time 11/17/2022 11/17/2022 I have reviewed and agree with the assessment and plan as documented by the it data architect. I provided real-time medical direction for this [...] lidocaine 5 % topical patch 2022 023 [id number], [address] [facility] [place], [address], 11:57:27 Patient TargetsNo targets recorded. Patient InstructionsNo instructions recorded. Reason for Referral None Reported. Medical Equipment None Reported. Allergies Allergen ID Allergen Name Allergen Category Reaction Reaction Severity Criticality Documentation Date Start Date Code Code System Note Provider Name and Address Organization Details Recorded Time 4722 Product containin g penicilli n and antibioti c (product) medicatio n Not available Not available Not available 03/25/2024 28084 05 SNOMED Not Available [facility] - production [...] SNOMED-CT Code Diagnosis ICD10 Code Diagnosis Note [id number] Diana Padilla MD Main - [facility] [address] [place] [phone] 11/17/2022 11:51:27 11/18/2022 13:00:39 Low back pain [id number] M54.50 Health Concerns Section Related Observation LastModified by Organization Detai ls LastModified Time None Recorded Concern Status LastModified by Organization Details LastModified Time None Recorded Advance Directives Directive None Recorded Payers Encounter Date Sequence Insurance Name Policy Number Policy [place] Covered Member ID [place] Member ID Guarantor Name 11/17/2022 1 [facility] - DOS ON OR AFTER 2022 - DUAL ELIGIBLE - FDC OPTIONS AND ONE CARE (MEDICARE REPLACEMENT/ADV ANTAGE - HMO) Vickychina Craft [id number] Vicky Craft Notes Date Note Type Note Provider [...] to reach member Diana Padilla MD [address] [facility],[address], [place], [phone], [employer] 11/17/2022 11:57:38 OBGyn Episode No OBEpisode recorded.
--- OUTSIDE RECORDS SUMMARY | 2024-06-24 07:44 | XMS_ITS | Encounter Summary ---
Author Organization [employer] Address [address] [facility] 7t [place] [address] Care Team Providers Care Veterinary Laboratory Diagnostician Name Role Phone Erik Gibbs MD Primary Care Provide r Reason for Visit * Reason Comments Med Refill Encounter Details Date Type Department Care Team ([facility] st Contact Info) Description 07/15/2023 Refill [facility] MEDICINE [address] [place], [place] [phone] Yovana Moore MD [address] [place], [place] [phone] Social History Tobacco Use Types Packs/Day Years [...] t he electric, gas, oil or water [employer] threatened to shut off services in your [...] documented as of this encounter Care Teams Veterinary Laboratory Diagnostician Relationship Specialty Start Date End Date Erik Gibbs MD [address] [place] [id number] PCP - General Internal Medicine 02/18/19 documented as of this encounter
--- OUTSIDE RECORDS SUMMARY | 2024-06-24 07:44 | XMS_ITS | Encounter Summary ---
Author Organization [email or web address] Address [address] [facility] 7t [place] [address] Care Team Providers Care Securities Research Analyst Name Role Phone Erik Gibbs MD Primary Care Provide r Reason for Visit * Reason Comments Med Refill Encounter Details Date Type Department Care Team ([facility] st Contact Info) Description 08/07/2023 Refill [facility] MEDICINE [address] [place], [place] [phone] Erik Gibbs MD [address] [place], [place] [phone] Social History Tobacco Use Types Packs/Day Years [...] documented as of this encounter Care Teams Securities Research Analyst Relationship Specialty Start Date End Date Erik Gibbs MD [address] [place] [address] PCP - General Internal Medicine 02/18/19 documented as of this encounter
--- OUTSIDE RECORDS SUMMARY | 2024-06-24 07:44 | XMS_ITS ---
Author Organization [facility] Address [address] [place] [phone] Care Team Providers Care Chief Psychology Name Role Phone Tolu Ortiz MD, Erik [...] Date Status D3 Super Strength 50 MCG (1999 UT) Oral for 90 Active B-12 1000 [...] Notes Problem Epigastric pain (R10.13) Active confirmed [id number] VITAL SIGNS BMI 29.60 kg/m2 03/12/2024 Blood pressure systolic 000 mm Hg 03/12/20 24 Blood pressure diastolic 00 mm Hg 024 Height 5 ft 3 in in 03/12/2024 Temperature 98.0 degrees Fahrenheit 03/12/20 24 Weight 167 lb 2 oz lbs 03/12/2024 Encounters Encounter Location Date Provider Diagnosis [facility] [address] [facility] [address] [place] [phone] 03/12/2024 Jorge Baldwin Jr Epigastric pain R10.13 [...] Name:Jorge salazar Jr, 09/22/2024 11:10:00 AM, [address], [address], [place], [phone], Progress Notes * Examination Category Sub-Category Detail Notes General Examination GENERAL APPEARANCE: in no ac [place] distress HEAD: normocephalic EYES: sclera non-icteric NECK/THYROID: no lymphadenopathy HEART: S1, S2 normal, no mu rmurs CHEST: normal shape and exp ansion LUNGS: clear to auscultatio n bilaterally ABDOMEN: soft, nontender, non distended, bowel sounds present, no organomegaly SKIN: anicteric EXTREMITIES: no clubbing, cyanosi s, or edema PSYCH: cognitive function i ntact ORAL CAVITY: mucosa moist
--- OUTSIDE RECORDS SUMMARY | 2024-06-24 07:44 | XMS_ITS | Encounter Summary ---
Author Organization [facility] Address [address] [facility] 7t [place] [address] Care Team Providers Care Civil Service Clerk Name Role Phone Erik Gibbs MD Primary Care Provide r Encounter Details Date Type Department Care Team ([facility] st Contact Info) Description 09/13/2023 Telephone [facility] MEDICINE [address] [place], [place] [phone] Erik Gibbs MD [address] [place], [place] [phone] Social History Tobacco Use Types Packs/Day Years [...] Telephone Encounter - Keke Robison LPN - 09/13/2023 11:58 AM EDT Critical Result line call received now. INR today 5.1 in office. Down from 6.5 yesterday. Home monitor checked and accurate. Patient will recheck tomorrow and follow with [facility] Anticoag with result. Warfarin on hold for today. Please update PCP as indicated. documented in this encounter Plan of Treatment [...] documented as of this encounter Care Teams Civil Service Clerk Relationship Specialty Start Date End Date Erik Gibbs MD [address] [place] [id number] PCP - General Internal Medicine 02/18/19 documented as of this encounter
--- OUTSIDE RECORDS SUMMARY | 2024-06-24 07:44 | XMS_ITS | Encounter Summary ---
Author Organization [employer] Address [address] [facility] 7t [place] [address] Care Team Providers Care Person Investigator Name Role Phone Erik Gibbs MD Primary Care Provide r Encounter Details Date Type Department Care Team ([facility] st Contact Info) Description 09/12/2023 Telephone [facility] MEDICINE [address] [place], [place] [phone] Erik Gibbs MD [address] [place], [place] [phone] Social History Tobacco Use Types Packs/Day Years [...] Telephone Encounter - Keke Robison LPN - 09/12/2023 2:05 PM EDT Critical Result line call received at this time. INR as tested at home = 6.5 Warfarin on hold today. Patient will come for recheck tomorrow and will bring machine to verify accuracy. To Note per Ce patient reports that she has been on Prednisone taper for approx one week and this may be the reason for the elevation. documented in this encounter Plan of Treatment [...] documented as of this encounter Care Teams Person Investigator Relationship Specialty Start Date End Date Erik Gibbs MD [address] [place] [address] PCP - General Internal Medicine 02/18/19 documented as of this encounter
[2024-06-24 07:47] VITALS: BP 126/80; PULSE 57; BMI 30.5
== END 2024-06-24 08:10 | disposition home or self-care (01) ==
PROVIDERS: PCP Internal Medicine; Visit Provider Student in an Organized Health Care Education/Training Program
DX: M05.79 Rheumatoid arthritis with rheumatoid factor of multiple sites without organ or systems involvement (principal); M80.00XS Age-related osteoporosis with current pathological fracture, unspecified site, sequela; Z51.81 Encounter for therapeutic drug level monitoring; Z79.69 Long term (current) use of other immunomodulators and immunosuppressants; Z79.620 Long term (current) use of immunosuppressive biologic
CPT/HCPCS: 99214; G2211

== ENCOUNTER → 2024-06-24 07:39 | Outpatient (BNVA) | payer OTHER, SELFPAY | PROVIDERS: PCP Internal Medicine; Visit Provider Student in an Organized Health Care Education/Training Program | DX: M80.00XS Age-related osteoporosis with current pathological fracture, unspecified site, sequela (principal); M05.9 Rheumatoid arthritis with rheumatoid factor, unspecified; X58.XXXS Exposure to other specified factors, sequela; Z86.711 Personal history of pulmonary embolism; Z79.01 Long term (current) use of anticoagulants; Z51.81 Encounter for therapeutic drug level monitoring; Z79.69 Long term (current) use of other immunomodulators and immunosuppressants | CPT/HCPCS: 96372; 99212; J0897 ==

== ENCOUNTER 2024-07-24 16:17 | Outpatient (AMB) | payer OTHER, SELFPAY ==
--- NOTE | 2024-07-24 14:44 | A.OFFVIS_ITS ---
Intake Visit Reasons: 2M Med Review(Myrbetriq) Intake Note: Patient is present for telehealth 2m med review Urology Meds: Myrbetriq Antibiotic Allergies: PCN, Sulfa Blood Thinners: Eliquis Supervisor Pipeline Maintenance Required: Yes Supervisor Pipeline Maintenance Services: Supervisor Pipeline Maintenance Present Supervisor Pipeline Maintenance Name: Cornell # [id number] Allergies BERNADETTE Inhibitors Allergy (Severe, Verified 07/24/24 16:19) Angioedema Iodinated Contrast Media [CONTRAST, IV] Allergy (Intermediate, Verified 07/24/24 16:19) SWELLING, ITCHINESS, RASH Penicillins [PENICILLINS] Allergy (Intermediate, Verified 07/24/24 16:19) ITCHINESS, RASH, SWELLING latex Allergy (Verified 07/24/24 16:19) Hives Sulfa (Sulfonamide Antibiotics) Allergy (Verified 07/24/24 16:19) Unknown zoledronic acid [From Reclast] Adverse Reaction (Verified 07/24/24 16:19) Joint Pain HPI Comments Details: 07/24/24-- Vicky is a 79-year-old female presenting FU Overactive Bladder. Frequent urination urgency symptoms, which were managed with Mirabegron. Insurance did not cover the gemtesa. The medication has been effective in reducing the frequency and urgency of urination. Although the patient uses pads when leaving the house, they are seldom heavily used, indicating controlled urinary incontinence. No additional urinary symptoms, such as burning or nocturia, were indicated. Thus far, her symptom management has been successful with the medication prescribed. 05/22/24--Vicky is here for follow up urinary incontinence. Last seen on 03/20/24-started on Gemtesa, sent for US renal/bladder 04/28/24--discussed within normal limits. The patient is here with her daughter who interprets for her. She states that they were unable to get the Gemtesa as it required a prior authorization. She states her mother still has a problem with the urgency and urine incontinence. Discussed avoid dietary bladder irritants cut back on caffeine intake. I will send Myrbetriq 50 mg and schedule a 2 month follow-up to review changes with urinary symptoms. 03/20/24--Vicky is here for c/o's urinary incontinence. She states that she feels a pain or pressure and then has a strong urge to use the bathroom and sometimes does not always make it to the bathroom. Status post total hysterectomy-- 4 ovarian cyst about 1992. Denies recent UTI. Denies burning with urination. The patient is on Eliquis and hydrochlorothiazide. Comorbidity diuretic. Discussed trial of Gemtesa we will check kidney and bladder ultrasound. 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 leflunomide therapy Encounter for monitoring leflunomide therapy Right ankle swelling Long-term use of immunosuppressant medication Dry skin dermatitis Leg edema Surgical History History of cholecystectomy History of appendectomy History of total abdominal hysterectomy and bilateral salpingo-oophorectomy History of bariatric surgery History of colonoscopy Family History Father Asthma Mother Rheumatoid arthritis Cardiovascular disease Social History Household Members: Family Housing: House Are you a primary health care marketing manager to a significant other at home: No Do you presently have visiting nurse or other home services: Yes (PT 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 a FRONT END ALIGNMENT SPECIALIST) Alcohol intake: never Patient Tobacco Use Status: Never used Tobacco Advance Directives Date on File: 02/06/24 service: No Current occupational status: disabled Review of Systems Const All systems reviewed & are unremarkable except as noted in HPI and below Reports no additional complaints Eyes Reports no additional complaints ENT Reports no additional complaints Card Reports no additional complaints Resp Reports no additional complaints GI Reports no additional complaints Reports as per HPI Musc Reports no additional complaints Skin/Breast Reports system reviewed and no additional complaints, except as documented Neuro Reports no additional complaints Psych Reports no additional complaints Endo Reports no additional complaints Manuel/Lymph Reports no additional complaints Aller/Immun Reports no additional complaints Assessment & Plan Assessment & Plan (1) Urinary incontinence: Code(s): R32 - Unspecified urinary incontinence Category: Medical (2) Urinary urgency: Code(s): R39.15 - Urgency of urination Category: Medical (3) Bladder spasms: Code(s): N32.89 - Other specified disorders of bladder Category: Medical Plan Plan The patient will maintain treatment with Mirabegron 50 mg daily as it effectively manages the Overactive Bladder. Follow-up will occur in six months unless there is a change in symptoms or development of UTI indications, warranting earlier intervention. Patient Instructions: The patient had an opportunity to ask questions regarding treatment plan. The patient expressed understanding and agreement with the above treatment plan. The patient is aware they should contact our office by phone for worsening of their current condition or the appearance of new symptoms. Compliance is encouraged with any medications and followup testing that is ordered. It is a privilege to be allowed the opportunity to participate in the urologic care of your patient. If you have any questions or concerns regarding treatment for the above conditions please do not hesitate to contact me. The office telephone contact is [phone]. This note is constructed in part using voice recognition software. While every effort has been made to ensure accuracy entry level drafter errors may have been included. Yours sincerely, Kisha Blair MD Scribe Plan - Not visible on output: Patient was informed and verbally consented to the use of an ambient scribe for clinic note documentation during this visit. Coding Level of Care Code Est Pt Level 3 (01068) Diagnoses Urinary incontinence R32 Urinary urgency R39.15 Bladder spasms N32.89
--- OUTSIDE RECORDS SUMMARY | 2024-07-24 19:22 | XMS_ITS | Encounter Summary ---
Author Organization [facility] Address [address] [place] [address] Care Team Providers Care Rounding Machine Operator Name Role Phone Jacob Manuel MD Primary Care Provider Pcp, No Primary Care Provider Erik Hamilton MD Primary Care Provider [phone] Encounter Details Date Type Department Care Team (Late st Contact Info) Description 03/31/2019 Scanned Document [facility] Rheumatology [address] [phone] Raiza Luis MD Social History Tobacco Use [...] on filedocumented in this encounter Care Teams Rounding Machine Operator Relationship Specialty Start Date End Date Jacob Manuel MD [address] [place] [address] PCP - General Internal Medicine 11/08/18 04/29/19 Pcp, No PCP - General 05/19/19 07/17/19 Erik Motley MD [address] [place] [address] [place] [address] PCP - General 07/18/19 documented as of this encounter
--- OUTSIDE RECORDS SUMMARY | 2024-07-24 19:22 | XMS_ITS | Encounter Summary ---
Author Organization [employer] Address [address] [facility] 7t [place] [address] Care Team Providers Care Box Office Clerk Name Role Phone rEik Gibbs MD Primary Care Provide r Reason for Visit * Reason Comments Med Refill Encounter Details Date Type Department Care Team ([facility] st Contact Info) Description 07/15/2023 Refill [facility] MEDICINE [address] [place], [place] [phone] Yovana Moore MD [address] [place], [place] [phone] Social History Tobacco Use Types Packs/Day Years [...] t he electric, gas, oil or water [employer] threatened to shut off services in your [...] documented as of this encounter Care Teams Box Office Clerk Relationship Specialty Start Date End Date Erik Gibbs MD [address] [place] [address] PCP - General Internal Medicine 02/18/19 documented as of this encounter
--- OUTSIDE RECORDS SUMMARY | 2024-07-24 19:22 | XMS_ITS | Encounter Summary ---
Author Organization [facility] Address [address] [place] [address] Care Team Providers Care Voice Intercept Technician Name Role Phone Erik Motley MD Primary Care Provider [phone] Encounter Details Date Type Department Care Team (Late st Contact Info) Description 07/18/2019 Scanned Document [facility] Rheumatology [address] [phone] Raiza Luis MD Social History Tobacco Use [...] on filedocumented in this encounter Care Teams Voice Intercept Technician Relationship Specialty Start Date End Date Erik Motley MD [address] [place] [address] [facility] [place] [facility] [address] PCP - General 07/18/19 documented as of this encounter
--- OUTSIDE RECORDS SUMMARY | 2024-07-24 19:22 | XMS_ITS | Encounter Summary ---
Author Organization [facility] Address [address] [place] [address] Care Team Providers Care Liberal Arts Dean Name Role Phone Jacob Manuel MD Primary Care Provider Pcp, No Primary Care Provider Erik Hamilton MD Primary Care Provider [phone] Encounter Details Date Type Department Care Team (Late st Contact Info) Description 12/13/2018 Scanned Document [facility] Rheumatology [address] [phone] Raiza Luis MD Social History Tobacco Use [...] on filedocumented in this encounter Care Teams Liberal Arts Dean Relationship Specialty Start Date End Date Jacob Manuel MD [address] [place] [address] PCP - General Internal Medicine 11/08/18 04/29/19 Pcp, No PCP - General 05/19/19 07/17/19 Erik Motley MD [address] [place] [address] [place] [address] PCP - General 07/18/19 documented as of this encounter
--- OUTSIDE RECORDS SUMMARY | 2024-07-24 19:22 | XMS_ITS | Patient Health Record ---
Author Organization [facility] Address [address] [place] [phone] Care Team Providers Care Collection Development Librarian Name Role Phone Tolu Ortiz MD, Erik Primary Care Provide r Jorge Mitchell Jr Unavailable ALLERGIES Allergen (clinical drug ingredient) Drug/Non Drug Allergy documented on EMR Reaction Allergy Type Onset Date Status Substance with sulfonamide structure and antibacterial mechanism of action (substance) Sulfa Antibiotics Unknown Drug Allergy Active zoledronic acid Reclast Unknown Drug Allergy A ctive IV DYE (uncoded) Unknown Allergy Act mirna Latex latex (uncoded) Unknown Allergy Acti ve Penicillin Unknown Drug Allergy Active REASON FOR REFERRAL No Information MEDICATIONS Medication [...] Notes Problem Epigastric pain (R10.13) Active confirmed [id number] VITAL SIGNS Temperature 98.0 degrees Fahrenheit 03/12/2024 Blood pressure diastolic 00 mm Hg 03/12/2024 Height 5 ft 3 in in 03/12/2024 Blood pressure systolic 000 mm Hg 03/12/2024 Weight 167 lb 2 oz lbs 03/12/2024 BMI 29.60 kg/m2 03/12/2024 Encounters Encounter Location Date Provider Diagnosis [facility] [address] [facility] [address] [place] [phone] 03/12/2024 Jorge Baldwin Jr Epigastric pain R10.13 ASSESSMENTS Encounter Date Diagnosis Assessment Notes Treatment Notes Treatment Clinical Notes 03/12/2024 Epigastric pain (ICD-10 - R10.13) Abdominal pain material was printed PLAN OF TREATMENT Next Appt Details Provider Name:Jorge salazar Jr, 09/22/2024 11:00:00 AM, [address] [place] [address], [address], [place], [address], Insurance Providers Payer Name Payer Address Payer Phone Subscriber Number Group Number Insured Name Patient Relationship to Insured Coverage Start Date Coverage End Date [facility] [address] Attn Claims SHYANNE Stubbs [id number] KAYLIE OROZCO Self - patient is the insured MEDICAL (GENERAL) HISTORY Medical History History ICD Code Asthma Hypertension Rheumatoid arthritis Osteoarthritis Fibromyalgia Irritable bowel syndrome Pulmonary embolism Surgical History Surgery Date(Month/Year) gastric bypass 2000 Appendectomy Cholecystectomy Hysterectomy
--- OUTSIDE RECORDS SUMMARY | 2024-07-24 19:22 | XMS_ITS | Clinical Summary ---
Author Organization [facility] Address [address] [place] [address] Phone Care Team Providers Care Web Ui Designer Name Role Phone Erik Farrar MD Primary Care [facility] Surgical History Surgery Date Site/Laterality Comments HYSTERECTOMY [...] hemorrhoids. One diminutive tubular adenoma. CHOLECYSTECTOMY PROCEDURE: [place] LAPAROSCOPY SURG CHOLECYSTECTOMY Medical History Medical History [...] drink = 0.6 oz pur e alcohol) Comments Unknown Sex and Gender Information Value Date Recorded Sex Assigned at Not on file Legal Sex Female 12:15 AM EST Gender Identity Not on file Sexual Orientation [...] Health Maintenance Due Date Last Done Comments Pneumococcal Vaccine: 50+ Years (1 of 1 - PCV) 1995 Zoster Vaccines (1 of 2) 1995 Hepatitis B Vaccines (3 of 3 - [...] patient's age to complete this topic Meningococcal B Vacine Aged Out No lo nger eligible based on patient's age to complete this topic RSV Immunization Patients Under 20 months Aged Out No longer eligible b ased on patient's age to complete this topic Varicella Vaccines Aged Out No longer eligible based on patient's age to complete this topic Care Teams Web Ui Designer Relationship Specialty Start Date End Date Erik Farrar MD [address] [place] [address] [place] [phone] PCP - General Internal Medicine 02/19/19
--- OUTSIDE RECORDS SUMMARY | 2024-07-24 19:22 | XMS_ITS | Encounter Summary ---
Author Organization [employer] Address [address] [facility] 7t [place] [address] Care Team Providers Care Regulatory Technician Name Role Phone Erik Gibbs MD Primary Care Provide r Reason for Visit * Reason Comments Med Refill Encounter Details Date Type Department Care Team ([facility] st Contact Info) Description 08/07/[address] [facility] MEDICINE [address] [place], [place] [phone] Erik Gibbs MD [address] [place], [place] [phone] Social History Tobacco Use Types Packs/Day Years [...] documented as of this encounter Care Teams Regulatory Technician Relationship Specialty Start Date End Date Erik Gibbs MD [address] [place] [address] PCP - General Internal Medicine 02/18/19 documented as of this encounter
--- OUTSIDE RECORDS SUMMARY | 2024-07-24 19:22 | XMS_ITS ---
Author Organization [facility] Address [address] [place] [phone] Care Team Providers Care Chief Nurse Name Role Phone Tolu Ortiz MD, Erik Primary Care Provide r Jorge Mitchell Jr Unavailable [phone] ALLERGIES Allergen (clinical drug ingredient) Drug/Non Drug Allergy documented on EMR Reaction Allergy Type Onset Date Status Substance with sulfonamide structure and antibacterial mechanism of action (substance) Sulfa Antibiotics Unknown Drug Allergy Active zoledronic acid Reclast Unknown Drug Allergy A ctive IV DYE (uncoded) Unknown Allergy Act mirna Latex latex (uncoded) Unknown Allergy Acti ve Penicillin Unknown Drug Allergy Active REASON FOR VISIT Patient presents today for [...] Notes Problem Epigastric pain (R10.13) Active confirmed [id number] VITAL SIGNS Temperature 98.0 degrees Fahrenheit 03/12/20 24 Blood pressure systolic 000 mm Hg 03/12/20 24 Blood pressure diastolic 00 mm Hg 024 Height 5 ft 3 in in 03/12/2024 Weight 167 lb 2 oz lbs 03/12/2024 BMI 29.60 kg/m2 03/12/2024 Encounters Encounter Location Date Provider Diagnosis [facility] [address] [place] [phone] 03/12/2024 Jorge Baldwin Jr Epigastric pain R10.13 [...] Year, Reason: Provider Name:Jorge salazar Jr, 09/22/2024 11:00:00 AM, [address], [address], [place], [address], Progress Notes * Examination Category Sub-Category Detail [...]
--- OUTSIDE RECORDS SUMMARY | 2024-07-24 19:22 | XMS_ITS | Clinical Summary ---
Author Organization [facility] Address [address] [place] [address] Care Team Providers Care French Pastry Cook Name Role Phone Erik Motley MD Primary Care Provider [phone] Allergies Active Allergy Reactions Criticality Noted Date [...] hours) as needed. Active nystatin (MYCOSTATIN, NYSTOP) 722184 UNIT/GM powderIndications:I ntertriginous dermatitis associated with moisture Apply topically 2 (two) times a day. 15 g 3 04/30/2019 Active albuterol (PROVENTIL HFA; VENTOLIN HFA) 108 (90 Base) MCG/ACT inhaler 04/17/2019 Active ibuprofen (MOTRIN) 400 MG tablet Take 400 mg by mouth 3 (three) times a day as needed. For pain 0 03/30/2019 Active temazepam (RESTORIL) 30 MG capsule 06/11/2019 Active ergocalciferol (VITAMIN D2,DRISDOL) 44085 units CapIndications:Nohemy min D deficiency TAKE 1 [...] Hepatitis C Antibody NON-REACT KEVIN NON-REACT KEVIN [facility] Hepatitis C Antibody (s/co) 0.06 <1.00 [facility] Comment: HCV antibody was non-reactive. There is no laboratory evidence of HCV infection. In most cases, no further action is required. However, if recent HCV exposure is suspected, a test for HCV RNA (test code 69254) is suggested. For additional information please refer to http://education.[facility]/faq/NFW42e8 (This link is being provided for informational/ educational purposes only.) Blood specimen (specimen) 12/11/2018 10:46 AM EDT 12/11/2018 10:46 AM EDT Narrative [facility] - 12/17/2018 11:33 AM EDT FASTING:NO LTC ONLY: DIFFICULT DRAW. WILL RETRY ON NEXT SCHEDULED DAY. FASTING: NO Resulting Agency Comment Performing Organization Information: ?Site ID: [id number] ?Name: [facility] ?Address: [address], [place] [address] ?Director: Slava Hendricks MD Raiza Luis MD LAB BLOOD ORDERABLES [facility] [address], [place] [address] from Last 3 Months or Most Recently Relevant to Health Maintenance Care Teams French Pastry Cook Relationship Specialty Start Date End Date Erik Motley MD [address] [place] [address] [place] [address] PCP - General 07/18/19
--- OUTSIDE RECORDS SUMMARY | 2024-07-24 19:22 | XMS_ITS | Data Portability ---
Author Organization [employer] Address [address] [place] [phone] Care Team Providers Care Alberene Stone Setter Name Role Phone [facility] Referring Provider [phone] [facility] Referring Provider Assessment Encounter Date Assessment Date Assessment LastModified by Organization Details LastModified Time 11/17/2022 11/17/2022 I have reviewed and agree with the assessment and plan as documented by the contact clerk. I provided real-time medical direction for this [...] lidocaine 5 % topical patch 2022 023 [facility][id number], [address] [facility] [place] [place], [id number], 11:57:27 Patient TargetsNo targets recorded. Patient InstructionsNo instructions recorded. Reason for Referral None Reported. Medical Equipment None Reported. Allergies Allergen ID Allergen Name Allergen Category Reaction Reaction Severity Criticality Documentation Date Start Date Code Code System Note Provider Name and Address Organization Details Recorded Time 2973 Product containin g penicilli n (product) medicatio n Not available Not available Not available 03/25/2024 82487 8001 SNOMED Not Available [facility] - production 10/29/202 4 03:47:43 Medications Name Sig Start Date [...] SNOMED-CT Code Diagnosis ICD10 Code Diagnosis Note [id number] Diana Padilla MD Main - [facility] [address] [place] [phone] 11/17/2022 11:51:27 11/18/2022 13:00:39 Low back pain [id number] M54.50 Health Concerns Section Related Observation LastModified by Organization Detai ls LastModified Time None Recorded Concern Status LastModified by Organization Details LastModified Time None Recorded Advance Directives Directive None Recorded Payers Encounter Date Sequence Insurance Name Policy Number Policy Carter Covered Member ID Carter Member ID Guarantor Name 11/17/2022 1 [facility] - DOS ON OR AFTER 2022 - DUAL ELIGIBLE - [employer] OPTIONS AND ONE [employer] (MEDICARE REPLACEMENT/ADV ANTAGE - HMO) Vicky Craft [id number] Vicky Craft Notes Date Note Type Note [...] to reach member Diana Padilla MD [address] [facility], [place], [address], [email or web address] 11/17/2022 11:57:38 OBGyn Episode No OBEpisode recorded.
--- OUTSIDE RECORDS SUMMARY | 2024-07-24 19:22 | XMS_ITS | Encounter Summary ---
Author Organization [employer] Address [address] [facility] 7t [place] [address] Care Team Providers Care Hotel Clerk Name Role Phone Erik Gibbs MD Primary Care Provide r Encounter Details Date Type Department Care Team ([facility] st Contact Info) Description 09/12/[address] [facility] MEDICINE [address] [place], [place] [phone] Erik Gibbs MD [address] [place], [place] [phone] Social History Tobacco Use Types Packs/Day Years [...] documented as of this encounter Care Teams Hotel Clerk Relationship Specialty Start Date End Date Erik Gibbs MD [address] [place] [address] PCP - General Internal Medicine 02/18/19 documented as of this encounter
--- OUTSIDE RECORDS SUMMARY | 2024-07-24 19:22 | XMS_ITS | Encounter Summary ---
Author Organization [facility] Address [address] [place] [address] Care Team Providers Care Parts Counter Sales Person Name Role Phone Erik Motley MD Primary Care Provider [phone] Encounter Details Date Type Department Care Team (Late st Contact Info) Description 10/31/2019 Scanned Document [facility] Rheumatology [address] [phone] Raiza Luis MD Social History Tobacco Use [...] on filedocumented in this encounter Care Teams Parts Counter Sales Person Relationship Specialty Start Date End Date Erik Motley MD [address] [place] [address] [facility] [address] PCP - General 07/18/19 documented as of this encounter
--- OUTSIDE RECORDS SUMMARY | 2024-07-24 19:22 | XMS_ITS | Clinical Summary ---
Author Organization [employer] Address [address] [facility] 7t [place] [address] Care Team Providers Care Water Resource Project Manager Name Role Phone Erik Gibbs MD Primary [...] BY MOUTH AT BEDTIME NEEDED FOR INSOMNIA 2 Active LORazepam (Ativan) 0.5 MG tablet TAKE 1 TABLET BY MOUTH ONCE A DAY NEEDED FOR SEVERE ANXIETY. UP TO 10 TIMES PER MONTH. 3 Active DULoxetine (Cymbalta) [address] capsule Take 60 mg by mouth in the morning. 3 Active Acetaminophen 500 MG capsuleIndications :Rheumatoid arthritis involving multiple sites with positive rheumatoid factor (CMS/HCC) Take 1 capsule (500 mg) by mouth every 8 (eight) hours. 90 capsule 3 3 Active albuterol (ProAir HFA) 108 (90 Base) MCG/ACT inhaler Inhale 2 puffs every 4 (four) hours if needed for wheezing or shortness of breath. 18 g 3 4 Active denosumab (Prolia) 60 MG/ML solution prefilled syringe Inject 60 mg under the skin every 6 (six) months. Active atorvastatin (Lipitor) 20 MG tabletIndications: Mixed hyperlipidemia Take 1 tablet (20 mg) by mouth Once per day. 30 tablet 11 4 10/30/19 25 Active Eliquis 5 MG tablet Take 5 mg by mouth 2 times daily. 4 Active Multiple Vitamin (Multivitamin) tablet TAKE 1 TABLET BY MOUTH EVERY MORNING 90 tablet 1 4 Active metoprolol succinate XL (Toprol-XL) 50 MG 24 hr tablet TAKE 1 TABLET BY MOUTH EVERY MORNING 90 tablet 1 4 Active Cyanocobalamin (B-12) 1000 MCG lozenge DISSOLVE 1 LOZENGE UNDER THE TONGUE EVERY DAY 4 Active leflunomide (Arava) 20 MG tablet Take 1 tablet by mouth Once per day. 4 Active Breo Ellipta 200-25 MCG/ACT aerosol powder INHALE 1 PUFF BY MOUTH EVERY DAY AT THE SAME TIME RINSE MOUTH AFTER USING 4 Active omeprazole (PriLOSEC) [address] capsule 1 capsule 1/2 to 1 hour before morning meal Orally Once a day for 30 day(s) 4 Active hydroCHLOROthiazid e 12.5 MG tablet TAKE 1 TABLET BY MOUTH EVERY MORNING 90 tablet 3 5 Active D3 Super Strength 50 MCG (2000 UT) capsule TAKE 1 CAPSULE BY MOUTH EVERY MORNING 90 capsule 3 5 Active Active Problems Problem Noted Date Diagnosed Date Preventative health care 03/18/2024 Assessment & Plan (03/18/2024 2:59 PM EDT): Mammogram: 04/04/2023 Pap Smear: s/p NIDA and BSO 1993 for fibroids Colonoscopy: 11/14/2017 SHOWED Tubular Adenoma 5 yr f/u recommended Vaccines: records requested Dexa scan: Hospital discharge follow-up 02/14/2024 Assessment & Plan (02/14/2024 9:41 AM EDT): Patient here for a HDF Admitted to [facility] from 02/05-02/07/2024 where she presented for evaluation [...] Plan: cardiology referral for Holter Age-related osteoporosis wit oly current pathological fracture 05/31/2023 Assessment & Plan [...] to auscultation bilaterally Continue conservative measures finish Paxlovid come back if she develops worsening cough [...] Left chest 05/31 1 Left pelvic area 05/31 Referral to derm. Chronic midline low back [...] c/o chronic low back pain when severe /10 radiation to both lower extremities associated with [...] their notes She is being followed at [facility] Coumadin clinic Assessment & Plan (06/08/2022 8:25 [...] last 06/09/2021 She is being followed at [facility] Coumadin clinic Cobalamin deficiency 06/07/2022 Constipation 06/07/2022 [...] reports wheezing intermittently. Seen by Dr. Aviles Steward/Stewardess Deck 03/14/2024 he added Nikolai mott recommended full PFTs Assessment & Plan [...] care of a psychotherapist Symone Arce at [facility] [phone] Javi Oshea On Duloxetine 20 mg capsule daily and temazepam 15 mg po qhs Rheumatoid arthritis 06/07/2022 Assessment & Plan (03/18/2024 2:56 PM EDT): Pt is here for a f/u She has RA diagnosed in 2000 She is followed at [facility] Rheumatology. Previously she was under the care of Raiza stauffer tel: [phone] In the past she was on Humira [...] diagnosed in 2000 She is followed at [facility] Rheumatology, last note 11/27/2022 Previously she was under the care of Raiza stauffer tel: [phone] In the past she was on Humira [...] diagnosed in 2000 She is followed at [facility] Rheumatology, last note 11/27/2022 Previously she was under the care of Raiza stauffer tel: [phone] In the past she was on Humira [...] diagnosed in 2000 She is followed at [facility] Rheumatology, last note 11/27/2022 Previously she was under the care of Raiza stauffer tel: [phone] In the past she was on Humira [...] a month once the ankle is resolved. Legal Services Professional to consider to try another medication for her RA if she has swelling and pain in her hands again. Follow-up with Rheumatology Assessment & Plan (01/16/2023 12:46 PM EDT): Pt is here for a f/u She has RA diagnosed in 2000 She is followed at [facility] Rheumatology, last note 11/27/2022 Previously she was under the care of Raiza stauffer tel: [phone] In the past she was on Humira [...] diagnosed in 2000 She is followed at [facility] Rheumatology, last note 03/14/2022 Previously she was under the care of Raiza stauffer tel: [phone] In the past she was on Humira and Prednisone with no good results. She was on Methotrexate, Kevsara nd Folic aci, but her Legal Services Professional recently held them due to a low WBC count of 3.2 she is getting weekly CBCs Assessment & Plan (06/08/2022 10:21 AM EST): Pt is here for a f/u She has RA diagnosed in 2000 She is followed at [facility] Rheumatology, last note 03/14/2022 Previously she was under the care of Raiza lecarmenjairo tel: [phone] In the past she was on Humira and Prednisone with no good results. She was on Methotrexate, Kevsara nd Folic aci, but her Legal Services Professional recently held them due to a low WBC count of 3.2 she is getting weekly CBCs Tubular adenoma of colon 06/07/2022 Assessment & Plan (03/18/2024 3:53 PM EDT): Colonoscopy: 11/14/2017 showed Tubular Adenoma 5 yr f/u recommended Pt referred to Dr. Baldwin, seen 03/12/2024 scheduled for colonoscopy at [facility] 03/25/2024 Assessment & Plan (06/08/2022 8:25 AM EST): Colonoscopy: 11/14/2017 showed Tubular Adenoma 5 yr f/u recommended Encounters Date Type Department Care Team Description 06/13/2024 Orders Only [facility] External Provider, [facility] 06/10/2024 Refill [facility] [address] [place] [address] Erik Gibbs MD 05/13/2024 Abstract [facility] [address] [place] [address] Erik Gibbs MD 04/28/2024 Orders Only [facility] External Provider, [facility] from Last 3 Months Immunizations Name Administration [...] years or older Completed 06/28/2023 Pneumococcal Vaccine: 50+ Years Completed 09/14/2023, 05/26/2021 Zoster Vaccines Completed 09/14/2023, 05/2023, 05/02/2016 Influenza Vaccine Completed 02/14/2024, , 03/03/2021, [...] AM EST) 06/13/2024 8:28 AM EST Narrative [facility] - 06/16/2024 5:05 PM EST ? [facility] ?[address] ?[place] [address] ?Nuclear Medicine Report ? Signed ? Patient: Craft,Vicky ?MR#: [id number] ?? 55 ? : 1945 ?Acct:[id number] ? Age/Sex: 79 / F ?ADM Date: /17/25 ? Loc: HO.CARD ? Attending Dr: Abdulkadir Saucedo MD ? Ordering Physician: Abdulkadir Saucedo MD ?? Date of Service: 06/13/24 ?? Procedure(s): NM cardiolite stress test ?? Accession Number(s): [id number] ? cc: Erik Farrar MD; Abdulkadir Saucedo [...] MD in OV> ?06/16/24 1700 ? DD/ 7 ? TD/TT: 06/16/24 0915 ? Cupola Melter: ? Procedure Note Donotuseinterpreter, Image - 06/16/[address] [address] Nuclear Medicine Report Signed Patient: Vicky CraftMR#: [id number] 55 : 5Acct:[id number] Age/Sex: 79 / FADM Date: 06/13/24 Loc: ANDREZ Attending Dr: Abdulkadir Saucedo MD Ordering Physician: Abdulkadir Saucedo MD Date of Service: 06/13/24 Procedure(s): NM cardiolite stress test Accession Number(s): [id number] cc: Erik Farrar MD; Abdulkadir Saucedo MD [...] 06/16/24 1700 DD/ 0828 TD/TT: 06/16/24 0915 Cupola Melter: [facility] External Provider CV STRE SS PROCEDURES Final Result Performing Organization Address [facility]/State/[facility] Co de Phone Number [facility] [address] [place] [address] * BI Mammogram Screening Tomosynthesis Bilateral (05/05/2024 12:00 PM EST) Anatomical Region Laterality Modality Breast Bilateral Mammography 05/05/2024 12:0 0 PM EST Narrative 05/09/2024 5:14 PM EST ? [facility] ? [address] ?[place] [address] ? Mammography Report ? Signed ? Patient: Craft,Vicky ?MR#: [id number] ?? 55 ? : 1945 ?Acct:[id number] ? Age/Sex: 79 / F ?ADM Date: 12/09/24 ? Loc: HO.MAMMO ? Attending Dr: Erik Farrar MD ? Ordering Physician: Erik Farrar MD ?Resu ?? lts: 1Negative ? Date of Service: 05/05/24 ?Follow Up: 1 Year From Orig ?? inal Mammogram ? Procedure(s): MM tomosynthesis screening BI ?? Accession Number(s): [id number] ? cc: Erik Farrar MD ? EXAMINATION: [...] DD/ 1200 ? TD/TT: 05/05/24 1215 ? Cupola Melter: ? Procedure Note Donotvininterpreter, Image - [facility]/09/20[facility] [address] [place] [address] Mammography Report Signed Patient: Vicky CraftMR#: [id number] 55 : 5Acct:[id number] Age/Sex: 79 / FADM Date: 05/05/24 Loc: HO.MAMMO Attending Dr: Erik Farrar MD Ordering Physician: Erik Farrar MDResu lts: 1Negative Date of Service: 05/05/24Follow Up: 1 Year From Orig inal Mammogram Procedure(s): MM tomosynthesis screening BI Accession Number(s): [id number] cc: Erik Farrar MD EXAMINATION: MM SCREENING [...] by: Leatha Victor DO 05/09/2024 05:11 PM [facility] Dictated By: Leatha Victor DO Signed By: <Electronically signed by Leatha Victor DO in OV> 05/09/24 1711 DD/ 1200 TD/TT: 05/05/24 1215 Cupola Melter: Erik Ortiz MD IMG BI PROCEDURES Fin al Result * Mammography (05/05/2024) HM Mammogram BIRADS 1 Normal, Abnormal, BIRADS 1 , BIRADS 2 Anatomical Region Laterality Modality Other Erik Ortiz MD HEALTH MAINTENANCE Fi nal Result * US Retroperitoneal Complete (04/28/2024 10:45 AM EST) Anatomical Region Laterality Modality Ultrasound 04/28/2024 10:4 5 AM EST Narrative 05/20/2024 9:05 AM EST ? [facility] ?[address] ?[place] [address] ? Ultrasound Report ? Signed ? Patient: Craft,Vicky ?MR#: [id number] ?? 55 ? : 1945 ?Acct:[id number] ? Age/Sex: 79 / F ?ADM Date: 04/28/24 ? Loc: HO.US ? Attending Dr: Kisha Blair MD ? Ordering Physician: Kisha Blair MD ?? Date of Service: 04/28/24 ?? Procedure(s): US retroperitoneal comp ?? Accession Number(s): [id number] ? cc: Kisha Blair MD; Erik Farrar [...] DD/ 1045 ? TD/TT: 04/28/24 1140 ? Cupola Melter: ? Procedure Note Tej, Tess - 05/20/2024 [place] [address] Ultrasound Report Signed Patient: Vicky CraftMR#: [id number] 55 : 5Acct:[id number] Age/Sex: 79 / FADM Date: 04/28/24 Loc: HO.US Attending Dr: Kisha Blair MD Ordering Physician: Kisha Blair MD Date of Service: 04/28/24 Procedure(s): US retroperitoneal comp Accession Number(s): [id number] cc: Kisha Blair MD; Erik Farrar MD [...] by: Waqas Hdez MD 05/20/2024 09:02 AM EST Dictated By: Waqas Hdez MD Signed By: <Electronically signed by Waqas Hdez MD in OV> 05/20/24 0902 DD/ 1045 TD/TT: 04/28/24 1140 Cupola Melter: [facility] External Provider IMG US PROCEDURES Edited Result - Final * (ABNORMAL) Colonoscopy (03/25/2024) Colonoscopy Abnormal(A ) Normal 03/25/2024 Erik Ortiz MD [facility] nal Result * Hepatitis Panel, General (02/27/2024 2:38 PM EDT) Hepatitis A IgM Nonreactive Nonreactive [facility] Comment:IgM antibodies to BARRETO V not detected; does not exclude earlyacute or recovered HAV infection. ~Hepatitis B Surface Antibody NONREACTIVE Nonreactive [facility] Comment:Nonreactive: < 8.00 mIU/mL Hepatitis B Core Antibody Nonreactive Nonreactive [facility] Hepatitis C Antibody Nonreactive Nonreactive [facility] Comment:Antibodies to HCV no t detected; does not exclude early acuteHCV infection. Hepatitis B Surface Ag Negative Negative [facility] 02/27/2024 2:38 PM EDT 02/27/2024 2:38 PM EDT us Generic External Data Provider LAB BLOOD ORDERAB LES Final Result [facility] [address] [place] [address] [phone] * (ABNORMAL) Lipid Panel, Standard (09/28/2023 10:45 AM EDT) Triglycerides 84 <150 mg/dL [facility] Comment:Desirable Triglyceri de: less than 150 mg/dLBorderline High Triglyceride 150-199 mg/dLHigh Triglyceride: 200-499 mg/dLVery High Triglyceride: greater than or equal to 5OO mg/dL Cholesterol 204(H) <200 mg/dL [facility] Comment:Desirable Cholestero l: less than 200 mg/dLBorderline High Cholesterol: 200-239 mg/dLHigh Cholesterol: greater than 239 mg/dL LDL Cholesterol Calculated 116(H) <100 mg/dL [facility] Comment:Desirable LDL: less than 100 mg/dLNear Optimal/Above Optimal LDL: 110- 129 mg/dLBorderline High LDL: 130-159 mg/dLHigh LDL: 160-189 mg/dLVery High LDL: greater than or equal to 190 mg/dL HDL Cholesterol 72 >40 mg/dL [facility] Comment:Desirable HDL: great er than 40 mg/dL Note: This HDL assay may give artificially low results in patients with liver disease. Blood Venous blood specimen / Unknown 09/28/2023 10:45 AM EDT 09/28/2023 11:35 AM EDT us Erik Ortiz MD LAB BLOOD ORDERABLES Final Result [facility] [address] [place] [address] [phone] from Last 3 Months or Most Recently Relevant to Health Maintenance Insurance [facility] Care Teams Water Resource Project Manager Relationship Specialty Start Date End Date Erik Gibbs MD [address] [place] [phone] PCP - General Internal Medicine 02/18/19
--- OUTSIDE RECORDS SUMMARY | 2024-07-24 19:22 | XMS_ITS | Encounter Summary ---
Author Organization [employer] Address [address] [facility] [address] [place] [address] Care Team Providers Care Varnish Melter Name Role Phone Erik Gibbs MD Primary Care Provide r Encounter Details Date Type Department Care Team ([facility] st Contact Info) Description 09/13/2023 Telephone [facility] [address] [place], [place] [phone] Erik Gibbs MD [address] [place], [place] [phone] Social History Tobacco Use Types Packs/Day Years [...] Patient will recheck tomorrow and follow with [facility] Anticoag with result. Warfarin on hold for today. Please update PCP as indicated. documented in this encounter Plan of Treatment Not on file documented as of this encounter Goals Goal Patient Goal Type Associated Problems Recent Progress Patient-Stated? Author Blood Pressure < 150/90 Blood Pressure 144/82( 024 3:38 PM EDT) No Maxwell Davsi documented as of this encounter Visit Diagnoses Not on filedocumented in this encounter Additional Health Concerns Assessment Noted Time PHQ-9 Depression Total Score: 0 07/04/19 23 10:11 AM EST documented as of this encounter Care Teams Varnish Melter Relationship Specialty Start Date End Date Erik Gibbs MD [address] [place] [address] PCP - General Internal Medicine 02/18/19 documented as of this encounter
--- OUTSIDE RECORDS SUMMARY | 2024-07-24 19:22 | XMS_ITS | Encounter Summary ---
Author Organization [facility] Address [address] [place] [address] Care Team Providers Care Switch Operators Supervisor Name Role Phone Erik Motley MD Primary Care Provider [phone] Encounter Details Date Type Department Care Team (Late st Contact Info) Description 07/18/2019 Scanned Document [facility] Rheumatology [address] [phone] Raiza Luis MD Social History Tobacco Use [...] on filedocumented in this encounter Care Teams Switch Operators Supervisor Relationship Specialty Start Date End Date rEik Motley MD [address] [place] [address] [facility] [address] PCP - General 07/18/19 documented as of this encounter
--- OUTSIDE RECORDS SUMMARY | 2024-07-24 19:22 | XMS_ITS | Encounter Summary ---
Author Organization [employer] Address [address] [facility] [address] [place] [address] Care Team Providers Care Civil Service Clerk Name Role Phone Erik Gibbs MD Primary Care Provide r Reason for Visit * Reason Onset Date Comments Medication Question 05/17/2023 Encounter Details Date Type Department Care Team ([facility] st Contact Info) Description 05/17/2023 Telephone [facility] [address] [place], [place] [phone] Erik Gibbs MD [address] [place], [place] [phone] Medication Question Social History Tobacco Use Types [...] Start Date End Date Erik Gibbs MD [address] [place] [phone] PCP - General Internal Medicine 02/18/19 documented as of this encounter
--- OUTSIDE RECORDS SUMMARY | 2024-07-24 19:22 | XMS_ITS | Encounter Summary ---
Author Organization [employer] Address [address] [facility] [address] [place] [address] Care Team Providers Care Spoon Maker Name Role Phone Erik Gibbs MD Primary Care Provide r Encounter Details Date Type Department Care Team ([facility] st Contact Info) Description 05/08/2023 Telephone [facility] [address] [place], [place] [phone] Erik Gibbs MD [address] [place], [place] [phone] Social History Tobacco Use Types Packs/Day Years [...] to this patient from Jennifer HUNTER @ [facility]. Patient presented to Anticoag clinic. She did [...] documented as of this encounter Care Teams Spoon Maker Relationship Specialty Start Date End Date Erik Gibbs MD [address] [place] [address] PCP - General Internal Medicine 02/18/19 documented as of this encounter
--- OUTSIDE RECORDS SUMMARY | 2024-07-24 19:22 | XMS_ITS | Encounter Summary ---
Author Organization [employer] Address [address] [facility] [address] [place] [address] Care Team Providers Care Environmental Protection Economist Name Role Phone Erik Gibbs MD Primary Care Provide r Encounter Details Date Type Department Care Team ([facility] st Contact Info) Description 05/08/2023 Telephone [facility] [address] [place], [place] [phone] Erik Gibbs MD [address] [place], [place] [phone] Social History Tobacco Use Types Packs/Day Years [...] Encounter - Keke Robison LPN - 05/08/2023 2:04 PM EST Critical [...] documented as of this encounter Care Teams Environmental Protection Economist Relationship Specialty Start Date End Date Erik Gibbs MD [address] [place] [address] PCP - General Internal Medicine 02/18/19 documented as of this encounter
== END 2024-07-24 16:38 | disposition home or self-care (01) ==
LOC: HO.HUSH 16:17
PROVIDERS: PCP Internal Medicine; Visit Provider Urology
DX: R32 Unspecified urinary incontinence (principal); R39.15 Urgency of urination; N32.89 Other specified disorders of bladder
CPT/HCPCS: 99213

== ENCOUNTER → 2024-07-24 16:17 | Outpatient (BNVA) | payer OTHER, SELFPAY | PROVIDERS: PCP Internal Medicine; Visit Provider Urology | DX: R32 Unspecified urinary incontinence (principal); R39.15 Urgency of urination; N32.89 Other specified disorders of bladder | CPT/HCPCS: 99212 ==

== ENCOUNTER → 2024-09-24 10:00 | Outpatient (BNV) | payer OTHER, SELFPAY | PROVIDERS: PCP Internal Medicine; Visit Provider Radiology Diagnostic Radiology | DX: E28.39 Other primary ovarian failure (principal) | CPT/HCPCS: 77080 ==

== ENCOUNTER 2024-09-24 10:02 | Outpatient (REF) | payer OTHER, SELFPAY ==
--- NOTE | ~2024-09-24 | MM_ITS ---
EXAMINATION: DXA BONE DENSITY AXIAL HISTORY: M80.00XS - Age-related osteoporosis with current pathological fracture, ... TECHNIQUE: [employer] Dual energy absorptiometry (DEXA) of the lumbar spine, total left hip, and femoral neck was performed. COMPARISON: Comparison is made with the prior examination dated 01/18/2022. FINDINGS: The bone mineral density of the lumbar spine is 0.892 with a T-score of -2.3, and a Z-score of -0.8. This is indicative of osteopenia. This represents a BMD change of 19.3% compared to the prior exam. This is statistically significant. The bone mineral density of the left total hip is 0.722 with a T-score of -2.3, and a Z-score of -0.5. This is indicative of osteopenia. This represents a BMD change of -2.4% compared to the prior exam. This is not statistically significant. The bone mineral density of the left femoral neck is 0.596 with a T-score of -3.2, and a Z-score of -1.2. This is indicative of osteoporosis. This represents a BMD change of -4.9% compared to the prior exam. MM/XR DEXA axial skeleton IMPRESSION: Based on bone mineral density, and according to World Health Organization (WHO) criteria, the diagnosis is consistent with osteoporosis. All bone density values are in grams per centimeter squared (g/cm2). Statistically, 68% of repeat scans fall within 1 SD (+/- 0.010 g/cm2 for AP spine L1-L4) and 1 SD (+/- 0.012 g/cm2 for femur total) FRAX is a trademark of the [employer]'s [employer] Metabolic Bone Disease, a World Health Organization (WHO) Collaborating Center. Electronically signed by: Christopher Valdivia MD 09/24/2024 10:39 AM EDT
--- OUTSIDE RECORDS SUMMARY | 2024-09-24 11:01 | XMS_ITS | Encounter Summary ---
Author Organization [employer] Address [address] [facility] 7t [place] [address] Care Team Providers Care Square Shear Operator Name Role Phone Erik Gibbs MD Primary Care Provide r Reason for Visit * Reason Onset Date Comments Medication Question 05/17/2023 Encounter Details Date Type Department Care Team ([facility] st Contact Info) Description 05/17/2023 Telephone [facility] MED[facility]INE [address] [place], [place] [phone] Erik Gibbs MD [address] [place], [place] [phone] Medication Question Social History Tobacco Use Types [...] Miscellaneous Notes * Telephone Encounter - Kendra Jose - 05/17/2023 11:14 AM EST Tc from pt requesting paxlovid. Pt became positive for COVID on 05/15. documented in this encounter Plan of Treatment Upcoming Encounters Date Type Department Care Team (Late st Contact Info) Description 11/25/2024 9:00 AM EDT Office Visit [facility] [address] [place] [address] Erik Gibbs MD [address] [place] [address] documented as of this encounter Visit Diagnoses Not on filedocumented in this encounter Additional Health Concerns Assessment Noted Time PHQ-9 Depression Total Score: 0 07/04/19 23 10:11 AM EST documented as of this encounter Care Teams Square Shear Operator Relationship Specialty Start Date End Date Erik Gibbs MD [address] [place] [address] PCP - General Internal Medicine 02/18/19 documented as of this encounter
--- OUTSIDE RECORDS SUMMARY | 2024-09-24 11:01 | XMS_ITS | Encounter Summary ---
Author Organization [employer] Address [address] [facility] 7t [place] [address] Care Team Providers Care Licensed Investment Sales Assistant Name Role Phone Erik Gibbs MD Primary Care Provide r Reason for Visit * Reason Comments Med Refill Encounter Details Date Type Department Care Team ([facility] st Contact Info) Description 08/07/2023 Refill [facility] MEDICINE [address] [place], [place] [phone] Erik Gibbs MD [address] [place], [place] [phone] Social History Tobacco Use Types Packs/Day Years [...] as of this encounter Plan of Treatment Upcoming Encounters Date Type Department Care Team (Late st Contact Info) Description 11/25/2024 9:00 AM EDT Office Visit [facility] MEDICINE [address] [place], [place] [phone] Erik Gibbs MD [address] [place] [address] documented as of this encounter Goals Goal [...] documented as of this encounter Care Teams Licensed Investment Sales Assistant Relationship Specialty Start Date End Date Erik Gibbs MD [address] [place] [address] PCP - General Internal Medicine 02/18/19 documented as of this encounter
--- OUTSIDE RECORDS SUMMARY | 2024-09-24 11:01 | XMS_ITS | Encounter Summary ---
Author Organization [employer] Address [address] [facility] 7t [place] [address] Care Team Providers Care 4 H Youth Development Specialist Name Role Phone Erik Gibbs MD Primary Care Provide r Encounter Details Date Type Department Care Team ([facility] st Contact Info) Description 05/08/2023 Telephone [facility] MEDICINE [address] [place], [place] [phone] Erik Gibbs MD [address] [place], [place] [phone] Social History Tobacco Use Types Packs/Day Years [...] Description 11/25/2024 9:00 AM EDT Office Visit [facility] MEDICINE [address] [place] [address] Erik Gibbs MD [address] [place] [address] documented as of this encounter Visit Diagnoses Not on filedocumented in this encounter Additional Health Concerns Assessment Noted Time PHQ-9 Depression Total Score: 0 07/04/19 23 10:11 AM EST documented as of this encounter Care Teams 4 H Youth Development Specialist Relationship Specialty Start Date End Date Erik Gibbs MD [address] [place] [address] PCP - General Internal Medicine 02/18/19 documented as of this encounter
--- OUTSIDE RECORDS SUMMARY | 2024-09-24 11:01 | XMS_ITS | Encounter Summary ---
Author Organization [facility] Address [address] [place] [address] Care Team Providers Care Bed Teacher Name Role Phone Erik Motley MD Primary Care Provider [phone] Encounter Details Date Type Department Care Team (Late st Contact Info) Description 07/18/2019 Scanned Document [facility] Rheumatology [address] [phone] Raiza Luis MD Social History Tobacco Use Types Packs/Day Years Used Date Smoking Tobacco: Never Smokeless Tobacco: Never Alcohol Use Standard Drinks/Week Comments Never 0 (1 standard drink = 0.6 oz pur e alcohol) AUDIT-C Answer Date Recorded Frequency of Alcohol Consumption Never 12/10/2018 Average Number of Drinks Not on file 019 Frequency of Binge Drinking Not on file 11/25 Comments No Sex and Gender Information Value Date Recorded Sex Assigned at Not on file Legal Sex Female 9:59 AM EDT Gender Identity Not on file Sexual Orientation Not on file documented as of this encounter Plan of Treatment Not on file documented as of this encounter Visit Diagnoses Not on filedocumented in this encounter Care Teams Bed Teacher Relationship Specialty Start Date End Date Erik Motley MD [address] [place] [address] [place] [address] PCP - General 07/18/19 documented as of this encounter
--- OUTSIDE RECORDS SUMMARY | 2024-09-24 11:01 | XMS_ITS | Clinical Summary ---
Author Organization [facility] Address [address] [place] [address] Care Team Providers Care Woodworking Belt Sander Name Role Phone Erik Motley MD Primary Care Provider Allergies Active Allergy Reactions Criticality Noted Date Comments Iodinated Contrast Media Other (See Comments) 12/10/2018 vomiting Latex Itching Low 12/10/2018 Penicillins Hives,Itching,Swelli ng Medium 12/10/2018 Zoledronic Acid Shortness Of Breath,Other (See Comments) High 12/10/2018 Unable to speak to move Medications warfarin (COUMADIN) 3 MG tablet Take 3 mg by mouth daily. 3 9 Active PANTOprazole (PROTONIX) 40 MG EC tablet Take 40 mg by mouth daily. 5 9 Active Calcium Carb-Cholecalci ferol (CALCIUM CARBONATE-VITAM IN D3) 600 mg-200 unit Tab tablet Take 1 tablet by mouth daily. 3 9 Active enalapril (VASOTEC) 20 MG tablet Take 20 mg by mouth daily. 0 9 Active lactulose (ENULOSE) 10 gm/15 mL solution TAKE 15 ML BY MOUTH 2 TIMES DAILY. 3 9 Active folic acid (FOLVITE) 1 MG tablet Take 1,000 mcg by mouth daily. 5 9 Active DULoxetine (CYMBALTA) 20 MG capsule Take 20 mg by mouth daily. Active cyanocobalamin (VITAMIN B-12) 1000 MCG/ML injection Inject 1,000 mcg under the skin. 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 WITH FOOD OR MILK. 180 tablet 1 9 Active LORazepam (ATIVAN) 0.5 MG tablet Take 0.5 mg by mouth 3 times daily (every 8 hours) as needed. Active nystatin (MYCOSTATIN, NYSTOP) 517804 UNIT/GM powderIndicatio ns:Intertrigino us dermatitis associated with moisture Apply topically 2 (two) times a day. 15 g 3 9 Active albuterol (PROVENTIL HFA; VENTOLIN HFA) 108 (90 Base) MCG/ACT inhaler 9 Active ibuprofen (MOTRIN) 400 MG tablet Take 400 mg by mouth 3 (three) times a day as needed. For pain 0 9 Active temazepam (RESTORIL) 30 MG capsule 0 Active ergocalciferol (VITAMIN D2,DRISDOL) 10329 units CapIndications: Vitamin D deficiency TAKE 1 CAPSULE BY MOUTH ONE TIME PER WEEK 4 capsule 2 0 Active Family History Medical History Relation Name [...] Hepatitis C Antibody NON-REACT KEVIN NON-REACT KEVIN [facility] Hepatitis C Antibody (s/co) 0.06 <1.00 [facility] Comment: HCV antibody was non-reactive. There is no laboratory evidence of HCV infection. In most cases, no further action is required. However, if recent HCV exposure is suspected, a test for HCV RNA (test code 91033) is suggested. For additional information please refer to http://education.[employer].org/faq/YCR10z2 (This link is being provided for informational/ educational purposes only.) Blood specimen (specimen) 12/11/2018 10:46 AM EDT 12/11/2018 10:46 AM EDT Narrative [facility] - 12/17/2018 11:33 AM EDT FASTING:NO LTC ONLY: DIFFICULT DRAW. WILL RETRY ON NEXT SCHEDULED DAY. FASTING: NO Resulting Agency Comment Performing Organization Information: ?Site ID: [id number] ?Name: [employer] ?Address: [address] [place] [address], [place] [address] ?Director: Slava Hendricks MD Raiza Luis MD LAB BLOOD ORDERABLES Final Resul t [facility] [address], [place] [address] from Last 3 Months or Most Recently Relevant to Health Maintenance Insurance MEDICARE PART A & B MEDICAID OUT OF STATE [facility] on file Care Teams Woodworking Belt Sander Relationship Specialty Start Date End Date Erik Motley MD [address] [place] [address] [place] [address] PCP - General 07/18/19
--- OUTSIDE RECORDS SUMMARY | 2024-09-24 11:01 | XMS_ITS | Clinical Summary ---
Author Organization [facility] Address [address] [place] [address] Phone Care Team Providers Care Transcription Name Role Phone Erik Farrar MD [facility] Surgical History Surgery Date Site/Laterality Comments HYSTERECTOMY [...] Deep venous thrombosis of lo wer extremity ([facility] V24, [facility] V28) 08/11/2015 DX:Deep venous th rombosis of lower extremity (HCC); COMMENT: S/p IVC filter b/l 2001 Osteoarthritis 03/03/2016 DX:Osteoarthriti s; COMMENT: Cervical spine, shoulders, knees Left knee pain 05/02/2017 DX:Left knee dusty n Neck pain 05/02/2017 DX:Neck pain Shoulder pain, right 05/02/2017 DX:Shoulder pain, right Rheumatoid arthritis with rh eumatoid factor ([facility] V24, [facility] V28) 01/25/2017 DX:Rheumatoid arthri tis with rheumatoid factor ([facility]) Rheumatoid arthritis flare ( [facility] V24, [facility] V28) 07/26/2017 DX:Rheumatoid arthritis flar e ([facility]) Pulmonary embolus ([facility] V 24, [facility] V28) 06/18/2014 DX:Pulmonary embolus ([facility]) Popliteal fullness 05/02/2017 DX:Popliteal fullness B12 deficiency [...] 3-dose series) 08/07/2017 03/07/2017, 02/07/2017 RSV Immunization Adult Patients (1 - 1-dose 75+ series) 01/09/2020 Cholesterol Screening (Lipid Panel) 05/06/2022 Colorectal Cancer Screening: Colonoscopy 05/06/2022 Depression Screening 05/06/2022 Falls Risk Assessment 05/06/2022 Hepatitis C Screening 05/06/2022 Osteoporosis Screening (Bone Density Screening) 05/06/2022 Social Influencers of Health Screening 05/06/2022 Hypertension/CHF/CAD Annual BMP Blood Test 05/12/2022 COVID-19 Vaccine ( - 2023-2 5 season) 2024 Influenza Vaccine (Season Ended) 2025 DTaP,Tdap,and Td Vaccines (2 - Td or [...] age to complete this topic Meningococcal B Vaccine Aged Out No l onger eligible based on patient's age to complete this topic RSV Immunization Patients Under 20 months Aged Out No longer eligible b ased on patient's age to complete this topic Varicella Vaccines Aged Out No longer eligible based on patient's age to complete this topic Care Teams Transcription Relationship Specialty Start Date End Date Erik Farrar MD [address] [place] [address] [place] [address] PCP - General Internal Medicine 02/19/19
--- OUTSIDE RECORDS SUMMARY | 2024-09-24 11:01 | XMS_ITS | Encounter Summary ---
Author Organization [employer] Address [address] [facility] 7t [place] [address] Care Team Providers Care Charge Master Analyst Name Role Phone Erik Gibbs MD Primary Care Provide r Encounter Details Date Type Department Care Team ([facility] st Contact Info) Description 09/12/2023 Telephone [facility] MEDICINE [address] [place], [place] [phone] Erik Gibbs MD [address] [place], [place] [phone] Social History Tobacco Use Types Packs/Day Years [...] Description 11/25/2024 9:00 AM EDT Office Visit [facility] MEDICINE [address] [place], [place] [phone] Erik Gibbs MD [address] [place] [address] documented as of this encounter Goals Goal [...] documented as of this encounter Care Teams Charge Master Analyst Relationship Specialty Start Date End Date Erik Gibbs MD [address] [place], [place] [phone] PCP - General Internal Medicine 02/18/19 documented as of this encounter
--- OUTSIDE RECORDS SUMMARY | 2024-09-24 11:01 | XMS_ITS | Data Portability ---
Author Organization [employer] Address [address] [place] [phone] Care Team Providers Care Mathematics Technician Name Role Phone [facility] Referring Provider [phone] [facility] Referring Provider Assessment Encounter Date Assessment Date Assessment LastModified by Organization Details LastModified Time 11/17/2022 11/17/2022 I have reviewed and agree with the assessment and plan as documented by the drill setup operator. I provided real-time medical direction for this [...] lidocaine 5 % topical patch 2022 023 [facility] #[id number], [address] [facility] [place], [address], 11:57:27 Patient TargetsNo targets recorded. Patient InstructionsNo instructions recorded. Reason for Referral None Reported. Medical Equipment None Reported. Allergies Allergen ID Allergen Name Allergen Category Reaction Reaction Severity Criticality Documentation Date Start Date Code Code System Note Provider Name and Address Organization Details Recorded Time 2713 Product containin g penicilli n (product) medicatio n Not available Not available Not available 03/25/2024 [id number] SNOMED Not Available [employer] - production [...] SNOMED-CT Code Diagnosis ICD10 Code Diagnosis Note [id number] Diana Padilla MD Main - [facility] [address] [place] [phone] 11/17/2022 11:51:27 11/18/2022 13:00:39 Low back pain [id number] M54.50 Health Concerns Section Related Observation LastModified by Organization Detai ls LastModified Time None Recorded Concern Status LastModified by Organization Details LastModified Time None Recorded Advance Directives Directive None Recorded Payers Encounter Date Sequence Insurance Name Policy Number Policy Carter Covered Member ID Carter Member ID Guarantor Name 11/17/2022 1 [facility] - DOS ON OR AFTER 2022 - DUAL ELIGIBLE - ALF OPTIONS AND ONE CARE (MEDICARE REPLACEMENT/ADV ANTAGE - HMO) Vicky Craft [id number] Vicky Craft Notes Date Note Type Note [...] to reach member Diana Padilla MD [address] [facility],[address], [place], [address], [employer] 11/17/2022 11:57:38 OBGyn Episode No OBEpisode recorded.
--- OUTSIDE RECORDS SUMMARY | 2024-09-24 11:01 | XMS_ITS | Encounter Summary ---
Author Organization [facility] Address [address] [place] [address] Care Team Providers Care Shear Grinder Operator Helper Name Role Phone Erik Motley MD Primary Care Provider [phone] Encounter Details Date Type Department Care Team (Late st Contact Info) Description 10/31/2019 Scanned Document [facility] Rheumatology [address] [phone] Raiza Luis MD Social History Tobacco Use [...] on filedocumented in this encounter Care Teams Shear Grinder Operator Helper Relationship Specialty Start Date End Date Erik Motley MD [address] [place] [address] [place] [address] PCP - General 07/18/19 documented as of this encounter
--- OUTSIDE RECORDS SUMMARY | 2024-09-24 11:01 | XMS_ITS | Encounter Summary ---
Author Organization [employer] Address [address] [facility] 7t [place] [address] Care Team Providers Care Bike Assembler Name Role Phone Erik Gibbs MD Primary Care Provide r Encounter Details Date Type Department Care Team ([facility] st Contact Info) Description 09/13/2023 Telephone [facility] MEDICINE [address] [place], [place] [phone] Erik Gibbs MD [address] [place], [place] [phone] Social History Tobacco Use Types Packs/Day Years [...] Patient will recheck tomorrow and follow with [facility] with result. Warfarin on hold for today. Please update PCP as indicated. documented in this encounter Plan of Treatment Upcoming Encounters Date Type Department Care Team (Late st Contact Info) Description 11/25/2024 9:00 AM EDT Office Visit [facility] MEDICINE [address] [place] [address] Erik Gibbs MD [address] [place] [address] documented as of this encounter Goals Goal [...] documented as of this encounter Care Teams Bike Assembler Relationship Specialty Start Date End Date Erik Gibbs MD [address] [place] [address] PCP - General Internal Medicine 02/18/19 documented as of this encounter
--- OUTSIDE RECORDS SUMMARY | 2024-09-24 11:01 | XMS_ITS | Encounter Summary ---
Author Organization [employer] Address [address] [facility] 7t [place] [address] Care Team Providers Care Burn Out Scarfing Operator Name Role Phone Erik Gibbs MD Primary Care Provide r Reason for Visit * Reason Comments Med Refill Encounter Details Date Type Department Care Team ([facility] st Contact Info) Description 07/15/2023 Refill [facility] MEDICINE [address] [place], [place] [phone] Yovana Moore MD [address] [place], [place] [phone] Social History Tobacco Use Types Packs/Day Years Used Date Smoking Tobacco: Never Passive Smoke Exposure: Never Smokeless Tobacco: Never Depression Answer Date Recorded Patient Health Questionnaire-9 Score 0 07/04/2022 Housing Stability Answer Date Recorded What is your housing situation today? I have ella hickye 03/12/[address] you li [...] t he electric, gas, oil or water [employer] threatened to shut off services in your [...] Description 11/25/2024 9:00 AM EDT Office Visit [facility] MEDICINE [address] [place], [place] [phone] Erik Gibbs MD [address] [place] [address] documented as of this encounter Goals Goal [...] documented as of this encounter Care Teams Burn Out Scarfing Operator Relationship Specialty Start Date End Date Erik Gibbs MD [address] [place], [place] [phone] PCP - General Internal Medicine 02/18/19 documented as of this encounter
--- OUTSIDE RECORDS SUMMARY | 2024-09-24 11:01 | XMS_ITS | Encounter Summary ---
Author Organization [facility] Address [address] [place] [address] Care Team Providers Care Dietetics Professor Name Role Phone Jacob Manuel MD Primary Care Provider Pcp, No Primary Care Provider Erik Hamilton MD Primary Care Provider [phone] Encounter Details Date Type Department Care Team (Late st Contact Info) Description 12/13/2018 Scanned Document [facility] Rheumatology [address] [phone] Raiza Luis MD Social History Tobacco Use [...] on filedocumented in this encounter Care Teams Dietetics Professor Relationship Specialty Start Date End Date Jacob Manuel MD [address] [place] [address] PCP - General Internal Medicine 11/08/18 04/29/19 Pcp, No PCP - General 05/19/19 07/17/19 Erik Motley MD [address] [place] [address] [place] [address] PCP - General 07/18/19 documented as of this encounter
--- OUTSIDE RECORDS SUMMARY | 2024-09-24 11:01 | XMS_ITS | Encounter Summary ---
Author Organization [employer] Address [address] [facility] 7t [place] [address] Care Team Providers Care Sponge Fisherman Name Role Phone Erik Gibbs MD Primary Care Provide r Encounter Details Date Type Department Care Team (Late st Contact Info) Description 09/24/2024 Orders Only [facility] External Provider, [facility] Social History Tobacco Use Types Packs/Day Years [...] Description 11/25/2024 9:00 AM EDT Office Visit [facility] MEDICINE [address] [place] [address] Erik Gibbs MD [address] [place] [address] documented as of this encounter Goals Goal Patient Goal Type Associated Problems Recent Progress Patient-Stated? Author Blood Pressure < 150/90 Blood Pressure 144/82( 024 3:38 PM EDT) No Maxwell Davis documented as of this encounter Procedures Procedure Name Priority Date/Time Associated Diagnosis Comments BD DEXA AXIAL Routine 09/24/2024 10:15 AM EDT documented in this encounter Results * BD DEXA Axial (09/24/2024 10:15 AM EDT) Anatomical Region Laterality Modality Body Radiographic Deyanira ging 09/24/2024 10:1 5 AM EDT Narrative 09/24/2024 10:43 AM EDT ? [facility] ? [address] ?[place] [address] ?[phone] ? Mammography Report ? Signed ? Patient: Craft,Vicky ?MR#: [id number] ?? 55 ? : 1945 ?Acct:[id number] ? Age/Sex: 79 / F ?ADM Date: 04/30/25 ? Loc: HO.MAMMO ? Attending Dr: Lisy Hooker MD ? Ordering Physician: Lisy Hooker MD ?Results: ? Date of Service: 09/24/24 ?Follow Up: ? Procedure(s): XR DEXA axial skeleton ?? Accession Number(s): [id number] ? cc: Lisy Hooker MD; Erik Farrar MD ? EXAMINATION: ??DXA BONE DENSITY AXIAL ? HISTORY: ??M80.00XS - Age-related osteoporosis with current pathological ?? fracture, ... ? TECHNIQUE: Receptor Dual energy absorptiometry (DEXA) ?? of the lumbar spine, total left hip, and femoral neck was performed. ? COMPARISON: Comparison is made with the prior examination dated ?? 01/18/2022. ? FINDINGS: ? The bone mineral density of the lumbar spine is 0.892 with a T-score of ?? -2.3, and a Z-score of -0.8. This is indicative of osteopenia. ? This represents a BMD change of 19.3% compared to the prior exam. ??This ?? is statistically significant. ? The bone mineral density of the left total hip is 0.722 with a T-score ?? of -2.3, and a Z-score of -0.5. This is indicative of osteopenia. ? This represents a BMD change of -2.4% compared to the prior exam. ??This ?? is not statistically significant. ? The bone mineral density of the left femoral neck is 0.596 with a ?? T-score of -3.2, and a Z-score of -1.2. This is indicative of ?? osteoporosis. ? This represents a BMD change of -4.9% compared to the prior exam. ? MM/XR DEXA axial skeleton ?? IMPRESSION: ?? Based on bone mineral density, and according to World Health ?? Organization (WHO) criteria, the diagnosis is consistent with ?? osteoporosis. ? All bone density values are in grams per centimeter squared (g/cm2). ?? Statistically, 68% of repeat scans fall within 1 SD (+/- 0.010 g/cm2 ?? for AP spine L1-L4) and 1 SD (+/- 0.012 g/cm2 for femur total) ?? FRAX is a trademark of the [employer]'s ?? [place] for Metabolic Bone Disease, a World Health Organization (WHO) ?? Collaborating Center. ? Electronically signed by: ??Christopher Valdivia MD ??09/24/2024 10:39 AM EDT ?? RP ? Dictated By: ?Christopher Valdivia MD ? Signed By: ?<Electronically signed by Christopher Valdivia MD in OV> ?09/24/24 1039 ? DD/ 1015 ? TD/TT: 09/24/24 1030 ? Websphere Commerce Consultant: ? Procedure Note Tej, Image - 09/24/2024 [facility] [address] [place] [address] Dr. Álvarez, MIGUELINA [id number] Mammography Report Signed Patient: Vicky CraftMR#: [id number] 55 : 5Acct:[id number] Age/Sex: 79 / FADM Date: 09/24/24 Loc: HO.KAMRANO Attending Dr: Lisy Hooker MD Ordering Physician: Lisy Hookeresults: Date of Service: 09/24/24Follow Up: Procedure(s): XR DEXA axial skeleton Accession Number(s): [id number] cc: Lisy Hooker MD; Erik Farrar MD EXAMINATION: DXA BONE DENSITY AXIAL HISTORY: M80.00XS - Age-related osteoporosis with current pathological fracture, ... TECHNIQUE: Receptor Dual energy absorptiometry (DEXA) of the lumbar spine, total left hip, and femoral neck was performed. COMPARISON: Comparison is made with the prior examination dated 01/18/2022. FINDINGS: The bone mineral density of the lumbar spine is 0.892 with a T-score of -2.3, and a Z-score of -0.8. This is indicative of osteopenia. This represents a BMD change of 19.3% compared to the prior exam. This is statistically significant. The bone mineral density of the left total hip is 0.722 with a T-score of -2.3, and a Z-score of -0.5. This is indicative of osteopenia. This represents a BMD change of -2.4% compared to the prior exam. This is not statistically significant. The bone mineral density of the left femoral neck is 0.596 with a T-score of -3.2, and a Z-score of -1.2. This is indicative of osteoporosis. This represents a BMD change of -4.9% compared to the prior exam. MM/XR DEXA axial skeleton IMPRESSION: Based on bone mineral density, and according to World Health Organization (WHO) criteria, the diagnosis is consistent with osteoporosis. All bone density values are in grams per centimeter squared (g/cm2). Statistically, 68% of repeat scans fall within 1 SD (+/- 0.010 g/cm2 for AP spine L1-L4) and 1 SD (+/- 0.012 g/cm2 for femur total) FRAX is a trademark of the [employer]'s [place] for Metabolic Bone Disease, a World Health Organization (WHO) Collaborating Center. Electronically signed by: Christopher Valdivia MD 09/24/2024 10:39 AM EDT Dictated By: Christopher Valdivia MD Signed By: <Electronically signed by Christopher Valdivia MD in OV> 09/24/24 1039 DD/ 1015 TD/TT: 09/24/24 1030 [employer] Consultant: [facility] External Provider IMG DXA PROCEDURES Edited Result - Final documented in this encounter Visit Diagnoses Not on filedocumented in this encounter Additional Health Concerns Assessment Noted Time PHQ-9 Depression Total Score: 1 09/27/19 24 11:43 AM EDT documented as of this encounter Care Teams Sponge Fisherman Relationship Specialty Start Date End Date Erik Gibbs MD [address] [place] [address] PCP - General Internal Medicine 02/18/19 documented as of this encounter
--- OUTSIDE RECORDS SUMMARY | 2024-09-24 11:01 | XMS_ITS | Encounter Summary ---
Author Organization [facility] Address [address] [place] [address] Care Team Providers Care Military Communications Specialist Name Role Phone Erik Motley MD Primary Care Provider [phone] Encounter Details Date Type Department Care Team (Late st Contact Info) Description 07/18/2019 Scanned Document [facility] Rheumatology [address] [phone] Raiza Luis MD Social History Tobacco Use [...] on filedocumented in this encounter Care Teams Military Communications Specialist Relationship Specialty Start Date End Date Erik Motley MD [address] [place] [address] [place] [address] PCP - General 07/18/19 documented as of this encounter
--- OUTSIDE RECORDS SUMMARY | 2024-09-24 11:01 | XMS_ITS | Encounter Summary ---
Author Organization [facility] Address [address] [place] [address] Care Team Providers Care Driver Trainee Name Role Phone Jacob Manuel MD Primary Care Provider Pcp, No Primary Care Provider Erik Hamilton MD Primary Care Provider [phone] Encounter Details Date Type Department Care Team (Late st Contact Info) Description 03/31/2019 Scanned Document [facility] Rheumatology [address] [phone] Raiza Luis MD Social History Tobacco Use [...] on filedocumented in this encounter Care Teams Driver Trainee Relationship Specialty Start Date End Date Jacob Manuel MD [address] [place] [address] PCP - General Internal Medicine 11/08/18 04/29/19 Pcp, No PCP - General 05/19/19 07/17/19 Erik Motley MD [address] [place] [address] [place] [address] PCP - General 07/18/19 documented as of this encounter
--- OUTSIDE RECORDS SUMMARY | 2024-09-24 11:01 | XMS_ITS | Encounter Summary ---
Author Organization [employer] Address [address] [facility] 7t [place] [address] Care Team Providers Care Cloth Baler Name Role Phone Erik Gibbs MD Primary Care Provide r Encounter Details Date Type Department Care Team ([facility] st Contact Info) Description 05/08/2023 Telephone [facility] MEDICINE [address] [place], [place] [phone] Erik Gibbs MD [address] [place], [place] [phone] Social History Tobacco Use Types Packs/Day Years [...] to this patient from Jennifer HUNTER @ [facility]. Patient presented to Anticoag clinic. She did [...] 9:00 AM EDT Office Visit [facility] MEDICINE [address] [place] [address] Erik Gibbs MD [address] [place] [address] documented as of this encounter Visit Diagnoses Not on filedocumented in this encounter Additional Health Concerns Assessment Noted Time PHQ-9 Depression Total Score: 0 07/04/19 23 10:11 AM EST documented as of this encounter Care Teams Cloth Baler Relationship Specialty Start Date End Date Erik Gibbs MD [address] [place] [address] PCP - General Internal Medicine 02/18/19 documented as of this encounter
--- OUTSIDE RECORDS SUMMARY | 2024-09-24 11:01 | XMS_ITS | Clinical Summary ---
Author Organization [employer] Address [address] [facility] 7t [place] [address] Care Team Providers Care Aerophysics Engineer Name Role Phone Erik Gibbs MD Primary [...] by mouth 2 times daily. 4 Active Cyanocobalamin (B-12) 1000 MCG lozenge [...] EVERY MORNING 90 capsule 3 5 Active metoprolol succinate XL (Toprol-XL) 50 MG 24 hr tablet TAKE 1 TABLET BY MOUTH EVERY MORNING 90 tablet 1 5 Active Multiple Vitamin (Multivitamin) tablet TAKE 1 TABLET BY MOUTH EVERY MORNING 90 tablet 1 5 Active Active Problems Problem Noted Date Diagnosed Date Preventative health care 03/18/2024 Assessment & Plan (03/18/2024 2:59 PM EDT): Mammogram: 04/04/2023 Pap Smear: s/p NIDA and BSO 1993 for fibroids Colonoscopy: 11/14/2017 SHOWED Tubular Adenoma 5 yr f/u recommended Vaccines: records requested Dexa scan: Hospital discharge follow-up 02/14/2024 Assessment & Plan (02/14/2024 9:41 AM EDT): Patient here for a HDF Ad[place] to [facility] [place] 02[place]05-02[place]07/2024 where she presented for evaluation [...] their notes She is being followed at [facility] Coumadin clinic Assessment & Plan (06/08/2022 8:25 [...] last 06/09/2021 She is being followed at [facility] Coumadin clinic Cobalamin deficiency 06/07/2022 Constipation 06/07/2022 [...] reports wheezing intermittently. Seen by Dr. Aviles Planning Feeder 03/14/2024 he added Nikolai mott recommended full [...] care of a psychotherapist Symone Arce at [facility] [phone] Javi Oshea On Duloxetine 20 mg capsule daily and temazepam 15 mg po qhs Rheumatoid arthritis 06/07/2022 Assessment & Plan (03/18/2024 2:56 PM EDT): Pt is here for a f/u She has RA diagnosed in 2000 She is followed at [facility] Rheumatology. Previously she was under the care of Raiza stauffer tel: [phone] In the past she was on Humira [...] diagnosed in 2000 She is followed at [facility] Rheumatology, last note 11/27/2022 Previously she was under the care of Raiza stauffer tel: [phone] In the past she was on Humira [...] diagnosed in 2000 She is followed at [facility] Rheumatology, last note 11/27/2022 Previously she was under the care of Raiza stauffer tel: [phone] In the past she was on Humira [...] diagnosed in 2000 She is followed at [facility] Rheumatology, last note 11/27/2022 Previously she was under the care of Raiza stauffer tel: [phone] In the past she was on Humira [...] a month once the ankle is resolved. Tax Evaluator to consider to try another medication for her RA if she has swelling and pain in her hands again. Follow-up with Rheumatology Assessment & Plan (01/16/2023 12:46 PM EDT): Pt is here for a f/u She has RA diagnosed in 2000 She is followed at [facility] Rheumatology, last note 11/27/2022 Previously she was under the care of Raiza stauffer tel: [phone] In the past she was on Humira [...] diagnosed in 2000 She is followed at [facility] Rheumatology, last note 03/14/2022 Previously she was under the care of Raiza stauffer tel: [phone] In the past she was on Humira and Prednisone with no good results. She was on Methotrexate, Kevsara nd Folic aci, but her Tax Evaluator recently held them due to a low WBC count of 3.2 she is getting weekly CBCs Assessment & Plan (06/08/2022 10:21 AM EST): Pt is here for a f/u She has RA diagnosed in 2000 She is followed at [facility] Rheumatology, last note 03/14/2022 Previously she was under the care of Raiza stauffer tel: [phone] In the past she was on Humira and Prednisone with no good results. She was on Methotrexate, Kevsara nd Folic aci, but her Tax Evaluator recently held them due to a low WBC count of 3.2 she is getting weekly CBCs Tubular adenoma of colon 06/07/2022 Assessment & Plan (03/18/2024 3:53 PM EDT): Colonoscopy: 11/14/2017 showed Tubular Adenoma 5 yr f/u recommended Pt referred to Dr. Baldwin, seen 03/12/2024 scheduled for colonoscopy at [facility] 03/25/2024 Assessment & Plan (06/08/2022 8:25 AM EST): Colonoscopy: 11/14/2017 showed Tubular Adenoma 5 yr f/u recommended Encounters Date Type Department Care Team Description 09/24/2024 Orders Only [facility] External Provider, [facility] 08/06/2024 Refill [facility] MED & PEDS [address] [place] [address] Erik Gibbs MD 08/05/2024 Telephone [facility] MEDICINE [address] [place], [place] [phone] Erik Gibbs MD triage nurse from Last 3 Months Immunizations Name Administration [...] 03/18/2024 3:38 PM EDT Plan of Treatment Upcoming Encounters Date Type Department Care Team (Late st Contact Info) Description 11/25/2024 9:00 AM EDT Office Visit [facility] MEDICINE [address] [place] [address] Erik Gibbs MD [address] [place] [address] Health Maintenance Due Date Last Done Comments Depression Screening 09/26/2024 09/27/2023, 09/27/19 24 SDOH Screening 09/26/2024 09/27/2023 Alcohol/Substance Use Screening 03/18/2025 03/18/2024 Tobacco Screening 03/18/2025 03/18/2024 Lipid Panel 09/27/2028 09/28/2023, 12/27, 06/08/2022, Additional history exists DTaP/Tdap/Td Vaccines (3 [...] DEXA AXIAL Routine 09/24/2024 10:15 AM EDT HM COLONOSCOPY Routine 03/25/2024 HEPATITIS PANEL, GENERAL Routine 02/27/2024 2:38 PM EDT LIPID PANEL, STANDARD Routine 09/28/2023 10:45 AM EDT Mixed hyperlipidemia from Last 3 Months or Most Recently Relevant to Health Maintenance Results * BD DEXA Axial (09/24/2024 10:15 AM EDT) Anatomical Region Laterality Modality Body Radiographic Deyanira ging 09/24/2024 10:1 5 AM EDT Narrative 09/24/2024 10:43 AM EDT ? [facility] ? [address] ?[place] [address] ?[phone] ? Mammography Report ? Signed ? Patient: Craft,Vicky ?MR#: [id number] ?? 55 ? : 1945 ?Acct:[id number] ? Age/Sex: 79 / F ?ADM Date: 04/30/25 ? Loc: HO.MAMMO ? Attending Dr: Lisy Hooker MD ? Ordering Physician: Lisy Hooker MD ?Results: ? Date of Service: 09/24/24 ?Follow Up: ? Procedure(s): XR DEXA axial skeleton ?? Accession Number(s): [id number] ? cc: Lisy Hooker MD; Erik Farrar MD ? EXAMINATION: ??DXA BONE DENSITY AXIAL ? HISTORY: ??M80.00XS - Age-related osteoporosis with current pathological ?? fracture, ... ? TECHNIQUE: AlphaLab Dual energy absorptiometry (DEXA) ?? of the [...] the [employer]'s ?? [place] for Metabolic Bone Disease, a World Health Organization (WHO) ?? Collaborating Center. ? Electronically signed by: ??Christopher Valdivia MD ??09/24/2024 10:39 AM EDT ?? RP ? Dictated By: ?Christopher Valdivia MD ? Signed By: ?<Electronically signed by Christopher Valdivia MD in OV> ?09/24/24 1039 ? DD/ 1015 ? TD/TT: 09/24/24 1030 ? Timber Management Technician: ? Procedure Note Tej, Image - 09/24/2024 [facility] [address] [place] [address] Dr. Álvarez, MIGUELINA [address] Mammography Report Signed Patient: Vicky CraftMR#: [id number] 55 : 5Acct:[id number] Age/Sex: 79 / FADM Date: 09/24/24 Loc: HO.MAMMO Attending Dr: Lisy Hooker MD Ordering Physician: Lisy Hooker MDResults: Date of Service: 09/24/24Follow Up: Procedure(s): XR DEXA axial skeleton Accession Number(s): [id number] cc: Lisy Hooker MD; Erik Farrar MD EXAMINATION: DXA BONE DENSITY AXIAL HISTORY: M80.00XS - Age-related osteoporosis with current pathological fracture, ... TECHNIQUE: AlphaLab Dual energy absorptiometry (DEXA) of the lumbar [...] is a trademark of the [employer]'s [place] for Metabolic Bone Disease, a World Health Organization (WHO) Collaborating Center. Electronically signed by: Christopher Valdivia MD 09/24/2024 10:39 AM EDT RP Dictated By: Christopher Valdivia MD Signed By: <Electronically signed by Christopher Valdivia MD in OV> 09/24/24 1039 DD/ 1015 TD/TT: 09/24/24 1030 Timber Management Technician: [facility] External Provider IMG DXA PROCEDURES Edited Result - Final * (ABNORMAL) Hm Colonoscopy (03/25/2024) Colonoscopy Abnormal(A ) Normal 03/25/2024 Erik Ortiz MD HEALTH MAINTENANCE nal Result * Hepatitis Panel, General (02/27/2024 2:38 PM EDT) Hepatitis A IgM Nonreactive Nonreactive [facility] Comment:IgM antibodies to BARRETO V not detected; does not exclude earlyacute or recovered HAV infection. ~Hepatitis B Surface Antibody NONREACTIVE Nonreactive [facility] Comment:Nonreactive: < 8.00 mIU/mL Hepatitis B Core Antibody Nonreactive Nonreactive [facility] Hepatitis C Antibody Nonreactive Nonreactive [facility] Comment:Antibodies to HCV no t detected; does not exclude early acuteHCV infection. Hepatitis B Surface Ag Negative Negative [facility] 02/27/2024 2:38 PM EDT 02/27/2024 2:38 PM EDT Generic External Data Provider LAB BLOOD ORDERAB LES Final Result [facility] [address] [place] [address] [phone] * (ABNORMAL) Lipid Panel, Standard (09/28/2023 10:45 AM EDT) Triglycerides 84 <150 mg/dL [facility] Comment:Desirable Triglyceri de: less than 150 mg/dLBorderline High Triglyceride 150-199 mg/dLHigh Triglyceride: 200-499 mg/dLVery High Triglyceride: greater than or equal to 5OO mg/dL Cholesterol 204(H) <200 mg/dL [facility] Comment:Desirable Cholestero l: less than 200 mg/dLBorderline High Cholesterol: 200-239 mg/dLHigh Cholesterol: greater than 239 mg/dL LDL Cholesterol Calculated 116(H) <100 mg/dL [facility] Comment:Desirable LDL: less than 100 mg/dLNear Optimal/Above Optimal LDL: 110- 129 mg/dLBorderline High LDL: 130-159 mg/dLHigh LDL: 160-189 mg/dLVery High LDL: greater than or equal to 190 mg/dL HDL Cholesterol 72 >40 mg/dL [facility] Comment:Desirable HDL: great er than 40 mg/dL Note: This HDL assay may give artificially low results in patients with liver disease. Blood Venous blood specimen / Unknown 09/28/2023 10:45 AM EDT 09/28/2023 11:35 AM EDT us Erik Ortiz MD LAB BLOOD ORDERABLES Final Result [facility] [address] [place], [place] [phone] from Last 3 Months or Most Recently Relevant to Health Maintenance Insurance [facility] INTERMEDIATE OPTIONS (HMO D-SNP) SHYANNE SÁNCHEZ [id number] Care Teams Aerophysics Engineer Relationship Specialty Start Date End Date Erik Gibbs MD [address] [place] [phone] PCP - General Internal Medicine 02/18/19
== END 2024-09-24 10:03 | disposition home or self-care (01) ==
LOC: HO.MAMMO 10:02
PROVIDERS: PCP Internal Medicine; Visit Provider Student in an Organized Health Care Education/Training Program
DX: Z13.89 Encounter for screening for other disorder (principal)
CPT/HCPCS: 36415; 77080; 80053; 82306; 85025; 85652; 86140; 86481; 86704; 86706; 86709; 86803; 87340

== ENCOUNTER 2024-09-24 10:27 | Outpatient (REF) | payer OTHER, SELFPAY ==
--- NOTE | 2024-09-24 10:30 | EMG_ITS ---
Chief complaint: Pain and numbness in both feet, feels like stepping on needles when he walks History of RA and osteoporosis Reason for referral: Evaluate for neuropathy Referred by: Dr. Hooker Procedure done: Bilateral lower extremity NCS/EMG Precautions and/or limitations: On Eliquis for atrial fib and history of PE The limb temperature was monitored continuously and remained between 32-36 degrees C during the performance of the NCS. Nerve Conduction Studies Anti Sensory Summary Table ?Stim Site NR Onset (ms) Norm Onset (ms) Peak (ms) Norm Peak (ms) O-P Amp (?V) Norm O-P Amp Site1 Site2 Delta-0 (ms) Dist (cm) Bienvenido (m/s) Norm Bienvenido (m/s) Left Sural Anti Sensory (Lat Mall) Calf NR <4.0 >5.0 Calf Lat Mall 14.0 Right Sural Anti Sensory (Lat Mall) Calf NR <4.0 >5.0 Calf Lat Mall 14.0 Motor Summary Table ?Stim Site NR Onset (ms) Norm Onset (ms) O-P Amp (mV) Norm O-P Amp iAmp (mV) Amp (1st) (%) Site1 Site2 Delta-0 (ms) Dist (cm) Bienvenido (m/s) Norm Bienvenido (m/s) Right Peroneal Motor (Ext Dig Brev) Ankle ? 4.4 <4.0 2.5 >2.5 2.8 100.0 Ankle Ext Dig Brev 4.4 0.0 B Fib ? 10.9 2.6 2.8 104.0 B Fib Ankle 6.5 30.0 46 >40 Poplt ? 12.5 2.4 2.6 96.0 Poplt B Fib 1.6 5.0 31 >40 Left Tibial Motor (Abd Elena Brev) Ankle ? 5.1 <5 1.0 >2.5 1.5 100.0 Ankle Abd Elena Brev 5.1 0.0 Knee ? 13.1 4.1 6.6 410.0 Knee Ankle 8.0 34.0 43 >40 Right Tibial Motor (Abd Elena Brev) Ankle ? 5.0 <5 1.6 >2.5 2.4 100.0 Ankle Abd Elena Brev 5.0 0.0 Knee ? 14.5 2.2 2.9 137.5 Knee Ankle 9.5 35.0 37 >40 EMG ?Side Muscle Nerve Root Ins Act Fibs Psw Amp Dur Poly Recrt Int Pat Comment Right AbdHallucis MedPlantar S1-2 Nml Nml Nml Nml Nml 0 Nml Complete Right AntTibialis Dp Br Peron L4-5 Nml Nml Nml Nml Nml 0 Nml Complete Right PostTibialis Tibial L5, S1 Nml Nml Nml Nml Nml 0 Nml Complete Right MedGastroc Tibial S1-2 Nml Nml Nml Nml Nml 0 Nml Complete Right VastusMed Femoral L2-4 Nml Nml Nml Nml Nml 0 Nml Complete Left AbdHallucis MedPlantar S1-2 Nml Nml Nml Nml Nml 0 Nml Complete Left AntTibialis Dp Br Peron L4-5 Nml Nml Nml Nml Nml 0 Nml Complete Left PostTibialis Tibial L5, S1 Nml Nml Nml Nml Nml 0 Nml Complete Left MedGastroc Tibial S1-2 Nml Nml Nml Nml Nml 0 Nml Complete Left VastusMed Femoral L2-4 Nml Nml Nml Nml Nml 0 Nml Complete FINDINGS: Right peroneal nerve showed prolonged distal latency, normal amplitude and slow conduction velocity across fibular neck. Right tibial nerve showed normal distal latency, small amplitude and slow conduction velocity. Left tibial nerve showed prolonged distal latency, small amplitude and normal conduction velocity. Bilateral sural nerves absent response. Concentric needle EMG was performed in selected muscles of the bilateral lower extremity. Study did not reveal signs of electric abnormalities as shown in the table above. IMPRESSION: 1. This is an abnormal study. 2. 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 3. There is no electrodiagnostic evidence for lumbosacral plexopathy or lumbar radiculopathy. Thank you for your kind referral. Kamilah Garrison MD, BRITT Board Certified, [place] Board [employer] and Rehabilitation (ABPMR) Board Certified, [place] Board of Electrodiagnostic Medicine (ABEM) CODIN 30352 x2 MTDD
--- OUTSIDE RECORDS SUMMARY | 2024-09-24 11:49 | XMS_ITS | Encounter Summary ---
Author Organization [facility] Address [address] [place] [address] Care Team Providers Care Crisis Mental Health Therapist Name Role Phone Jacob Manuel MD Primary Care Provider Pcp, No Primary Care Provider Erik Hamilton MD Primary Care Provider [phone] Encounter Details Date Type Department Care Team (Late st Contact Info) Description 12/13/2018 Scanned Document [facility] Rheumatology [address] [phone] Raiza Luis MD Social History Tobacco Use [...] on filedocumented in this encounter Care Teams Crisis Mental Health Therapist Relationship Specialty Start Date End Date Jacob Manuel MD [address] [place] [phone] PCP - General Internal Medicine 11/08/18 04/29/19 Pcp, No PCP - General 05/19/19 07/17/19 Erik Motley MD [address] [place] [address] [place] [address] PCP - General 07/18/19 documented as of this encounter
--- OUTSIDE RECORDS SUMMARY | 2024-09-24 11:49 | XMS_ITS | Clinical Summary ---
Author Organization [facility] Address [address] [place] [address] Phone Care Team Providers Care Retention Representative Name Role Phone Erik Farrar MD Primary Care [facility] Surgical History Surgery Date Site/Laterality Comments [...] hemorrhoids. One diminutive tubular adenoma. 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 wer extremity ([facility] V24, [facility] V28) 08/11/2015 DX:Deep venous th rombosis of lower extremity (HCC); COMMENT: S/p IVC filter b/l 2001 Osteoarthritis 03/03/2016 DX:Osteoarthriti s; COMMENT: Cervical spine, shoulders, knees Left knee pain 05/02/2017 DX:Left knee dusty n Neck pain 05/02/2017 DX:Neck pain Shoulder pain, right 05/02/2017 DX:Shoulder pain, right Rheumatoid arthritis with rh eumatoid factor ([facility] V24, [facility] V28) 01/25/2017 DX:Rheumatoid arthri tis with rheumatoid factor ([facility]) Rheumatoid arthritis flare ( [facility] V24, [facility] V28) 07/26/2017 DX:Rheumatoid arthritis flar e ([facility]) Pulmonary embolus ([facility] V 24, [facility] V28) 06/18/2014 DX:Pulmonary embolus ([facility]) Popliteal fullness 05/02/2017 DX:Popliteal fullness B12 deficiency [...] age to complete this topic Care Teams Retention Representative Relationship Specialty Start Date End Date Erik Farrar MD [address] [place] [address] [facility] [place] [phone] PCP - General Internal Medicine 02/19/19
--- OUTSIDE RECORDS SUMMARY | 2024-09-24 11:49 | XMS_ITS | Encounter Summary ---
Author Organization [facility] Address [address] [place] [address] Care Team Providers Care Paid Search Marketing Analyst Name Role Phone Jacob Manuel MD Primary Care Provider Pcp, No Primary Care Provider Erik Hamilton MD Primary Care Provider [phone] Encounter Details Date Type Department Care Team (Late st Contact Info) Description 03/31/2019 Scanned Document [facility] Rheumatology [address] [phone] Raiza Luis MD Social History Tobacco Use [...] on filedocumented in this encounter Care Teams Paid Search Marketing Analyst Relationship Specialty Start Date End Date Jacob Manuel MD [address] [place] [phone] PCP - General Internal Medicine 11/08/18 04/29/19 Pcp, No PCP - General 05/19/19 07/17/19 Erik Motley MD [address] [place] [address] [place] [address] PCP - General 07/18/19 documented as of this encounter
--- OUTSIDE RECORDS SUMMARY | 2024-09-24 11:49 | XMS_ITS | Encounter Summary ---
Author Organization [facility] Address [address] [facility] 7t [place] [address] Care Team Providers Care Special Agent Name Role Phone Erik Gibbs MD Primary Care Provide r Encounter Details Date Type Department Care Team (Late st Contact Info) Description 09/24/2024 Orders Only [facility] External Provider, [facility] Social History Tobacco Use Types Packs/Day [...] Description 11/25/2024 9:00 AM EDT Office Visit [facility] MEDICINE [address] [place] [address] Erik Gibbs MD [address] [place] [address] documented as of this encounter Goals Goal [...] EDT Narrative 09/24/2024 10:43 AM EDT ? [facility] ? [address] ?[place] [address] ?[phone] ? Mammography Report ? Signed ? Patient: Craft,Vicky ?MR#: [id number] ?? 55 ? : 1945 ?Acct:[id number] ? Age/Sex: 79 / F ?ADM Date: 04/30/25 ? Loc: HO.MAMMO ? Attending Dr: Lisy Hooker MD ? Ordering Physician: Lisy Hooker MD ?Results: ? Date of Service: 09/24/24 ?Follow Up: ? Procedure(s): XR DEXA axial skeleton ?? Accession Number(s): [id number] ? cc: Lisy Hooker MD; Erik Farrar MD ? EXAMINATION: ??DXA BONE DENSITY AXIAL ? HISTORY: ??M80.00XS - Age-related osteoporosis with current pathological ?? fracture, ... ? TECHNIQUE: Locately Dual energy absorptiometry (DEXA) ?? of the [...] the [employer]'s ?? [place] for Metabolic Bone Disease, a World Health Organization (WHO) ?? Collaborating Center. ? Electronically signed by: ??Christopher Valdivia MD ??09/24/2024 10:39 AM EDT ?? RP ? Dictated By: ?Christopher Valdivia MD ? Signed By: ?<Electronically signed by Christopher Valdivia MD in OV> ?09/24/24 1039 ? DD/ 1015 ? TD/TT: 09/24/24 1030 ? Program Director/Music Director: ? Procedure Note Tej, Image - 09/24/2024 [facility] [address] [place] [address] Dr. Álvarez, MIGUELINA [id number] Mammography Report Signed Patient: Vicky CraftMR#: [id number] 55 : 5Acct:[id number] Age/Sex: 79 / FADM Date: 09/24/24 Loc: HO.KAMRANO Attending Dr: Lisy Hooker MD Ordering Physician: Lisy Hookeresults: Date of Service: 09/24/24Follow Up: Procedure(s): XR DEXA axial skeleton Accession Number(s): [id number] cc: Lisy Hooker MD; Erik Farrar MD EXAMINATION: DXA BONE DENSITY AXIAL HISTORY: M80.00XS - Age-related osteoporosis with current pathological fracture, ... TECHNIQUE: Locately Dual energy absorptiometry (DEXA) of the lumbar [...] of the [employer]'s [place] for Metabolic Bone Disease, a World Health Organization (WHO) Collaborating Center. Electronically signed by: Christopher Valdivia MD 09/24/2024 10:39 AM EDT Dictated By: Christopher Valdivia MD Signed By: <Electronically signed by Christopher Valdivia MD in OV> 09/24/24 1039 DD/ 1015 TD/TT: 09/24/24 1030 Program Director/Music Director: [facility] External Provider IMG DXA PROCEDURES Edited Result - Final documented in this encounter Visit Diagnoses Not on filedocumented in this encounter Additional Health Concerns Assessment Noted Time PHQ-9 Depression Total Score: 1 09/27/19 24 11:43 AM EDT documented as of this encounter Care Teams Special Agent Relationship Specialty Start Date End Date Erik Gibbs MD [address] [place] [address] PCP - General Internal Medicine 02/18/19 documented as of this encounter
--- OUTSIDE RECORDS SUMMARY | 2024-09-24 11:49 | XMS_ITS | Encounter Summary ---
Author Organization [employer] [facility] Address [address] [facility] 7t [place] [address] Care Team Providers Care Scaffold Setter Name Role Phone Erik Gibbs MD Primary Care Provide r Reason for Visit * Reason Comments Med Refill Encounter Details Date Type Department Care Team ([facility] st Contact Info) Description 07/15/2023 Refill [facility] [address] [place], [place] [phone] Yovana Moore MD [address] [place], [place] [phone] Social History Tobacco Use Types Packs/Day Years [...] t he electric, gas, oil or water [employer] threatened to shut off services in your [...] Description 11/25/2024 9:00 AM EDT Office Visit [facility] [address] [place], [place] [phone] Erik Gibbs MD [address] [place] [address] documented as of this encounter Goals Goal [...] documented as of this encounter Care Teams Scaffold Setter Relationship Specialty Start Date End Date Erik Gibbs MD [address] [place], [place] [phone] PCP - General Internal Medicine 02/18/19 documented as of this encounter
--- OUTSIDE RECORDS SUMMARY | 2024-09-24 11:49 | XMS_ITS | Encounter Summary ---
Author Organization [facility] Address [address] [place] [address] Care Team Providers Care Chain Pegger Name Role Phone Erik Motley MD Primary Care Provider [phone] Encounter Details Date Type Department Care Team (Late st Contact Info) Description 07/18/2019 Scanned Document [facility] Rheumatology [address] [phone] Raiza Luis MD Social History Tobacco Use [...] on filedocumented in this encounter Care Teams Chain Pegger Relationship Specialty Start Date End Date Erik Motley MD [address] [place] [address] [place] [address] PCP - General 07/18/19 documented as of this encounter
--- OUTSIDE RECORDS SUMMARY | 2024-09-24 11:49 | XMS_ITS | Encounter Summary ---
Author Organization [facility] Address [address] [facility] 7t [place] [address] Care Team Providers Care Renderer Name Role Phone Erik Gibbs MD Primary Care Provide r Encounter Details Date Type Department Care Team ([facility] st Contact Info) Description 09/12/2023 Telephone [facility] MEDICINE [address] [place], [place] [phone] Erik Gibbs MD [address] [place], [place] [phone] Social History Tobacco Use Types Packs/Day Years [...] Description 11/25/2024 9:00 AM EDT Office Visit [facility] MEDICINE [address] [place], [place] [phone] Erik Gibbs MD [address] [place] [address] documented as of this encounter Goals Goal [...] documented as of this encounter Care Teams Renderer Relationship Specialty Start Date End Date Erik Gibbs MD [address] [place], [place] [phone] PCP - General Internal Medicine 02/18/19 documented as of this encounter
--- OUTSIDE RECORDS SUMMARY | 2024-09-24 11:49 | XMS_ITS | Encounter Summary ---
Author Organization [facility] Address [address] [facility] 7t [place] [address] Care Team Providers Care Relay Dispatcher Name Role Phone Erik Gibbs MD Primary Care Provide r Encounter Details Date Type Department Care Team ([facility] st Contact Info) Description 05/08/[address] [facility] MEDICINE [address] [place], [place] [phone] Erik Gibbs MD [address] [place], [place] [phone] Social History Tobacco Use Types Packs/Day Years [...] 9:00 AM EDT Office Visit [facility] MEDICINE [address] [place] [address] Erik Gibbs MD [address] [place] [address] documented as of this encounter Visit Diagnoses Not on filedocumented in this encounter Additional Health Concerns Assessment Noted Time PHQ-9 Depression Total Score: 0 07/04/19 23 10:11 AM EST documented as of this encounter Care Teams Relay Dispatcher Relationship Specialty Start Date End Date Erik Gibbs MD [address] [place] [address] PCP - General Internal Medicine 02/18/19 documented as of this encounter
--- OUTSIDE RECORDS SUMMARY | 2024-09-24 11:49 | XMS_ITS | Clinical Summary ---
Author Organization [facility] Address [address] [place] [address] Care Team Providers Care Records Manager Name Role Phone Erik Motley MD Primary Care Provider [phone] Allergies Active Allergy Reactions Criticality Noted Date [...] hours) as needed. Active nystatin (MYCOSTATIN, NYSTOP) 399677 UNIT/GM powderIndicatio ns:Intertrigino us dermatitis associated with [...] MG capsule 0 Active ergocalciferol (VITAMIN D2,DRISDOL) 68630 units CapIndications: Vitamin D deficiency TAKE 1 [...] a test for HCV RNA (test code 51175) is suggested. For additional information please refer to http://education.[employer]faq/DIC80o1 (This link is being provided for informational/ educational purposes only.) Blood specimen (specimen) 12/11/2018 10:46 AM EDT 12/11/2018 10:46 AM EDT Narrative [facility] - 12/17/2018 11:33 AM EDT FASTING:NO LTC ONLY: DIFFICULT DRAW. WILL RETRY ON NEXT SCHEDULED DAY. FASTING: NO Resulting Agency Comment Performing Organization Information: ?Site ID: [id number] ?Name: [employer] ?Address: [address] [place] [address], [place] [address] ?Director: Slava Hendricks MD Raiza Luis MD LAB BLOOD ORDERABLES Final Resul t [facility] [address], [place] [address] from Last 3 Months or Most Recently Relevant to Health Maintenance Insurance MEDICARE PART A & B MEDICAID OUT OF STATE [facility] on file Care Teams Records Manager Relationship Specialty Start Date End Date Erik Motley MD [address] [place] [address] [place] [address] PCP - General 07/18/19
--- OUTSIDE RECORDS SUMMARY | 2024-09-24 11:49 | XMS_ITS | Encounter Summary ---
Author Organization [facility] Address [address] [place] [address] Care Team Providers Care Freight Flagman Name Role Phone Erik Motley MD Primary Care Provider [phone] Encounter Details Date Type Department Care Team (Late st Contact Info) Description 07/18/2019 Scanned Document [facility] Rheumatology [address] [phone] Raiza Luis MD Social History Tobacco Use [...] on filedocumented in this encounter Care Teams Freight Flagman Relationship Specialty Start Date End Date Erik Motley MD [address] [place] [address] [place] [address] PCP - General 07/18/19 documented as of this encounter
--- OUTSIDE RECORDS SUMMARY | 2024-09-24 11:49 | XMS_ITS | Encounter Summary ---
Author Organization [facility] Address [address] [place] [address] Care Team Providers Care Bung Remover Name Role Phone Erik Motley MD Primary Care Provider [phone] Encounter Details Date Type Department Care Team (Late st Contact Info) Description 10/31/2019 Scanned Document [facility] Rheumatology [address] [phone] Raiza Luis MD Social History Tobacco Use [...] on filedocumented in this encounter Care Teams Bung Remover Relationship Specialty Start Date End Date Erik Motley MD [address] [place] [address] [place] [address] PCP - General 07/18/19 documented as of this encounter
--- OUTSIDE RECORDS SUMMARY | 2024-09-24 11:49 | XMS_ITS | Clinical Summary ---
Author Organization [employer] [facility] Address [address] [facility] 7t [place] [address] Care Team Providers Care Insurance Agents Supervisor Name Role Phone Erik Gibbs MD Primary [...] Patient here for a HDF Admitted to [facility] from 02/05-02/07/2024 where she presented for evaluation [...] cardiology referral for Holter Age-related osteoporosis wit loy current pathological fracture 05/31/2023 Assessment & Plan [...] their notes She is being followed at [facility] Coumadin clinic Assessment & Plan (06/08/2022 8:25 [...] last 06/09/2021 She is being followed at [facility] Coumadin clinic Cobalamin deficiency 06/07/2022 Constipation 06/07/2022 [...] reports wheezing intermittently. Seen by Dr. Aviles Coke Oven Patcher 03/14/2024 he added Nikolai mott recommended full [...] a psychotherapist Symone Arce at [facility] [phone] Javi Oshea On Duloxetine 20 mg capsule daily and temazepam 15 mg po qhs Rheumatoid arthritis 06/07/2022 Assessment & Plan (03/18/2024 2:56 PM EDT): Pt is here for a f/u She has RA diagnosed in 2000 She is followed at [facility] Rheumatology. Previously she was under the care of Raiza stauffer tel: [phone] In the past she was on Humira [...] diagnosed in 2000 She is followed at [facility] Rheumatology, last note 11/27/2022 Previously she was under the care of Raiza stauffer tel: [phone] In the past she was on Humira [...] diagnosed in 2000 She is followed at [facility] Rheumatology, last note 11/27/2022 Previously she was under the care of Raiza stauffer tel: [phone] In the past she was on Humira [...] diagnosed in 2000 She is followed at [facility] Rheumatology, last note 11/27/2022 Previously she was under the care of Raiza stauffer tel: [phone] In the past she was on Humira [...] a month once the ankle is resolved. Golf Cart Attendant to consider to try another medication for her RA if she has swelling and pain in her hands again. Follow-up with Rheumatology Assessment & Plan (01/16/2023 12:46 PM EDT): Pt is here for a f/u She has RA diagnosed in 2000 She is followed at [facility] Rheumatology, last note 11/27/2022 Previously she was under the care of Raiza stauffer tel: [phone] In the past she was on Humira [...] diagnosed in 2000 She is followed at [facility] Rheumatology, last note 03/14/2022 Previously she was under the care of Raiza stauffer tel: [phone] In the past she was on Humira and Prednisone with no good results. She was on Methotrexate, Kevsara nd Folic aci, but her Golf Cart Attendant recently held them due to a low WBC count of 3.2 she is getting weekly CBCs Assessment & Plan (06/08/2022 10:21 AM EST): Pt is here for a f/u She has RA diagnosed in 2000 She is followed at [facility] Rheumatology, last note 03/14/2022 Previously she was under the care of Raiza stauffer tel: [phone] In the past she was on Humira and Prednisone with no good results. She was on Methotrexate, Kevsara nd Folic aci, but her Golf Cart Attendant recently held them due to a low WBC count of 3.2 she is getting weekly CBCs Tubular adenoma of colon 06/07/2022 Assessment & Plan (03/18/2024 3:53 PM EDT): Colonoscopy: 11/14/2017 showed Tubular Adenoma 5 yr f/u recommended Pt referred to Dr. Baldwin, seen 03/12/2024 scheduled for colonoscopy at [facility] 03/25/2024 Assessment & Plan (06/08/2022 8:25 AM EST): Colonoscopy: 11/14/2017 showed Tubular Adenoma 5 yr f/u recommended Encounters Date Type Department Care Team Description 09/24/2024 Orders Only [facility] External Provider, [facility] 08/06/2024 Refill [facility] [address] [place] [address] Erik Gibbs MD 08/05/2024 Telephone [facility] [address] [place], [place] [phone] Erik Gibbs MD triage nurse from Last [...] Description 11/25/2024 9:00 AM EDT Office Visit [facility] [address] [place] [address] Erik Gibbs MD [address] [place] [address] Health Maintenance Due Date Last Done Comments [...] this topic Meningococcal Vaccine Aged Out No isam aleisha eligible based on patient's age to [...] EDT Narrative 09/24/2024 10:43 AM EDT ? [facility] ? [address] ?[place] [address] ?[phone] ? Mammography Report ? Signed ? Patient: Craft,Vicky ?MR#: [id number] ?? 55 ? : 1945 ?Acct:[id number] ? Age/Sex: 79 / F ?ADM Date: 04/30/25 ? Loc: HO.MAMMO ? Attending Dr: Lisy Hooker MD ? Ordering Physician: Lisy Hooker MD ?Results: ? Date of Service: 09/24/24 ?Follow Up: ? Procedure(s): XR DEXA axial skeleton ?? Accession Number(s): [id number] ? cc: Lisy Hooker MD; Erik Farrar MD ? EXAMINATION: ??DXA BONE DENSITY AXIAL ? HISTORY: ??M80.00XS - Age-related osteoporosis with current pathological ?? fracture, ... ? TECHNIQUE: Cellcrypt Dual energy absorptiometry (DEXA) ?? of the [...] the [employer]'s ?? [place] for Metabolic Bone Disease, a World Health Organization (WHO) ?? Collaborating Center. ? Electronically signed by: ??Christopher Valdivia MD ??09/24/2024 10:39 AM EDT ?? RP ? Dictated By: ?Christopher Valdivia MD ? Signed By: ?<Electronically signed by Christopher Valdivia MD in OV> ?09/24/24 1039 ? DD/ 1015 ? TD/TT: 09/24/24 1030 ? Smelter Charger: ? Procedure Note Tej, Image - 09/24/2024 [facility] [address] [place] [address] Dr. Álvarez, MIGUELINA [address] Mammography Report Signed Patient: Vicky CraftMR#: [id number] 55 : 5Acct:[id number] Age/Sex: 79 / FADM Date: 09/24/24 Loc: HO.MAMMO Attending Dr: Lisy Hooker MD Ordering Physician: Lisy Hooker MDResults: Date of Service: 09/24/24Follow Up: Procedure(s): XR DEXA axial skeleton Accession Number(s): [id number] cc: Lisy Hooker MD; Erik Farrar MD EXAMINATION: DXA BONE DENSITY AXIAL HISTORY: M80.00XS - Age-related osteoporosis with current pathological fracture, ... TECHNIQUE: Cellcrypt Dual energy absorptiometry (DEXA) of the lumbar [...] is a trademark of the [employer]'s [place] for Metabolic Bone Disease, a World Health Organization (WHO) Collaborating Center. Electronically signed by: Christopher Valdivia MD 09/24/2024 10:39 AM EDT RP Dictated By: Christopher Valdivia MD Signed By: <Electronically signed by Christopher Valdivia MD in OV> 09/24/24 1039 DD/ 1015 TD/TT: 09/24/24 1030 Smelter Charger: [facility] External Provider IMG DXA PROCEDURES Edited Result - Final * (ABNORMAL) Hm Colonoscopy (03/25/2024) Colonoscopy Abnormal(A ) Normal 03/25/2024 Erik Ortiz MD HEALTH MAINTENANCE nal Result * Hepatitis Panel, General (02/27/2024 2:38 PM EDT) Hepatitis A IgM Nonreactive Nonreactive [facility] Comment:IgM antibodies to BARRETO V not detected; does not exclude earlyacute or recovered HAV infection. ~Hepatitis B Surface Antibody NONREACTIVE Nonreactive [facility] Comment:Nonreactive: < 8.00 mIU/mL Hepatitis B Core Antibody Nonreactive Nonreactive [facility] Hepatitis C Antibody Nonreactive Nonreactive [facility] Comment:Antibodies to HCV no t detected; does not exclude early acuteHCV infection. Hepatitis B Surface Ag Negative Negative [facility] 02/27/2024 2:38 PM EDT 02/27/2024 2:38 PM EDT Generic External Data Provider LAB BLOOD ORDERAB LES Final Result [facility] [address] [place] [address] [phone] * (ABNORMAL) Lipid Panel, Standard (09/28/2023 10:45 AM EDT) Triglycerides 84 <150 mg/dL [facility] Comment:Desirable Triglyceri de: less than 150 mg/dLBorderline High Triglyceride 150-199 mg/dLHigh Triglyceride: 200-499 mg/dLVery High Triglyceride: greater than or equal to 5OO mg/dL Cholesterol 204(H) <200 mg/dL [facility] Comment:Desirable Cholestero l: less than 200 mg/dLBorderline High Cholesterol: 200-239 mg/dLHigh Cholesterol: greater than 239 mg/dL LDL Cholesterol Calculated 116(H) <100 mg/dL [facility] Comment:Desirable LDL: less than 100 mg/dLNear Optimal/Above Optimal LDL: 110- 129 mg/dLBorderline High LDL: 130-159 mg/dLHigh LDL: 160-189 mg/dLVery High LDL: greater than or equal to 190 mg/dL HDL Cholesterol 72 >40 mg/dL [facility] Comment:Desirable HDL: great er than 40 mg/dL Note: This HDL assay may give artificially low results in patients with liver disease. Blood Venous blood specimen / Unknown 09/28/2023 10:45 AM EDT 09/28/2023 11:35 AM EDT us Erik Ortiz MD LAB BLOOD ORDERABLES Final Result [facility] [address] [place], [place] [phone] from Last 3 Months or Most Recently Relevant to Health Maintenance Insurance [facility] USP OPTIONS (HMO D-SNP) SHYANNE SÁNCHEZ [id number] Care Teams Insurance Agents Supervisor Relationship Specialty Start Date End Date Erik Gibbs MD [address] [place] [address] PCP - General Internal Medicine 02/18/19
--- OUTSIDE RECORDS SUMMARY | 2024-09-24 11:49 | XMS_ITS | Encounter Summary ---
Author Organization [employer] Address [address] [facility] 7t [place] [address] Care Team Providers Care Electrical Engineering Designer Name Role Phone Erik Gibbs MD Primary Care Provide r Encounter Details Date Type Department Care Team ([facility] st Contact Info) Description 09/13/2023 Telephone [facility] [address] [place], [place] [phone] Erik Gibbs MD [address] [place], [place] [phone] Social History Tobacco Use Types Packs/Day Years [...] Patient will recheck tomorrow and follow with [facility] Anticoag with result. Warfarin on hold for today. Please update PCP as indicated. documented in this encounter Plan of Treatment Upcoming Encounters Date Type Department Care Team (Late st Contact Info) Description 11/25/2024 9:00 AM EDT Office Visit [facility] [address] [place] [address] Erik Gibbs MD [address] [place] [address] documented as of this encounter Goals Goal [...] documented as of this encounter Care Teams Electrical Engineering Designer Relationship Specialty Start Date End Date Erik Gibbs MD [address] [place] [address] PCP - General Internal Medicine 02/18/19 documented as of this encounter
--- OUTSIDE RECORDS SUMMARY | 2024-09-24 11:49 | XMS_ITS | Encounter Summary ---
Author Organization [employer] Address [address] [facility] 7t [place] [address] Care Team Providers Care Cloth Doffer Name Role Phone Erik Gibbs MD Primary Care Provide r Reason for Visit * Reason Onset Date Comments Medication Question 05/17/2023 Encounter Details Date Type Department Care Team ([facility] st Contact Info) Description 05/17/2023 Telephone [facility] [address] [place], [place] [phone] Erik Gibbs MD [address] [place], [place] [phone] Medication Question Social History Tobacco Use Types [...] Description 11/25/2024 9:00 AM EDT Office Visit [facility] [address] [place] [address] Erik Gibbs MD [address] [place] [address] documented as of this encounter Visit Diagnoses Not on filedocumented in this encounter Additional Health Concerns Assessment Noted Time PHQ-9 Depression Total Score: 0 07/04/19 23 10:11 AM EST documented as of this encounter Care Teams Cloth Doffer Relationship Specialty Start Date End Date Erik Gibbs MD [address] [place] [address] PCP - General Internal Medicine 02/18/19 documented as of this encounter
--- OUTSIDE RECORDS SUMMARY | 2024-09-24 11:49 | XMS_ITS | Encounter Summary ---
Author Organization [employer] Address 75 [facility] 7t [place] [address] Care Team Providers Care Tire Classifier Name Role Phone Erik Gibbs MD Primary Care Provide r Reason for Visit * Reason Comments Med Refill Encounter Details Date Type Department Care Team ([facility] st Contact Info) Description 08/07/2023 Refill [facility] [address] [place], [place] [phone] Erik Gibbs MD [address] [place], [place] [phone] Social History Tobacco Use Types Packs/Day Years [...] Description 11/25/2024 9:00 AM EDT Office Visit [facility] [address] [place], [place] [phone] Erik Gibbs MD [address] [place] [address] documented as of this encounter Goals Goal [...] documented as of this encounter Care Teams Tire Classifier Relationship Specialty Start Date End Date Erik Gibbs MD [address] [place] [address] PCP - General Internal Medicine 02/18/19 documented as of this encounter
--- OUTSIDE RECORDS SUMMARY | 2024-09-24 11:49 | XMS_ITS | Encounter Summary ---
Author Organization [employer] Address 75 [facility] 7t [place] [address] Care Team Providers Care Aircraft Mechanic Name Role Phone Erik Gibbs MD Primary Care Provide r Encounter Details Date Type Department Care Team ([facility] st Contact Info) Description 05/08/2023 Telephone [facility] [address] [place], [place] [phone] Erik Gibbs MD [address] [place], [place] [phone] Social History Tobacco Use Types Packs/Day Years [...] to this patient from Jennifer HUNTER @ [facility]. Patient presented to Anticoag clinic. She [...] Description 11/25/2024 9:00 AM EDT Office Visit [facility] [address] [place] [address] Erik Gibbs MD [address] [place] [address] documented as of this encounter Visit Diagnoses Not on filedocumented in this encounter Additional Health Concerns Assessment Noted Time PHQ-9 Depression Total Score: 0 07/04/19 23 10:11 AM EST documented as of this encounter Care Teams Aircraft Mechanic Relationship Specialty Start Date End Date Erik Gibbs MD [address] [place] [address] PCP - General Internal Medicine 02/18/19 documented as of this encounter
== END 2024-09-24 10:28 | disposition home or self-care (01) ==
LOC: HO.NEURO 10:27
PROVIDERS: PCP Internal Medicine; Visit Provider Nurse Practitioner Family
DX: G62.9 Polyneuropathy, unspecified (principal); R20.2 Paresthesia of skin; M80.00XS Age-related osteoporosis with current pathological fracture, unspecified site, sequela; Z51.81 Encounter for therapeutic drug level monitoring; Z79.69 Long term (current) use of other immunomodulators and immunosuppressants; M05.9 Rheumatoid arthritis with rheumatoid factor, unspecified; E55.9 Vitamin D deficiency, unspecified
CPT/HCPCS: 36415; 77080; 80053; 82306; 85025; 85652; 86140; 86481; 86704; 86706; 86709; 86803; 87340; 95886; 95909

== ENCOUNTER → 2024-09-24 10:30 | Outpatient (BNV) | payer OTHER, SELFPAY | PROVIDERS: PCP Internal Medicine; Visit Provider Physical Medicine & Rehabilitation | DX: R20.0 Anesthesia of skin (principal); R20.2 Paresthesia of skin; G62.89 Other specified polyneuropathies | CPT/HCPCS: 95886; 95909 ==

== ENCOUNTER 2024-09-24 11:05 | Outpatient (REF) | payer OTHER, SELFPAY ==
--- OUTSIDE RECORDS SUMMARY | 2024-09-24 12:41 | XMS_ITS | Encounter Summary ---
Author Organization [employer] Address [address] [facility] 7t [place] [address] Care Team Providers Care Supervisor Name Role Phone Erik Gibbs MD Primary Care Provide r Encounter Details Date Type Department Care Team (Late st Contact Info) Description 09/24/2024 Orders Only [facility] External Provider, [facility] Social History Tobacco Use Types Packs/Day [...] 9:00 AM EDT Office Visit [facility] MED[facility] [address] [place] [address] Erik Gibbs MD [address] [place] [address] documented as of this encounter Goals Goal [...] EDT Narrative 09/24/2024 10:43 AM EDT ? [facility] ? [address] ?[place] [address] ?[phone] ? Mammography Report ? Signed ? Patient: Craft,Vicky ?MR#: [id number] ?? 55 ? : 1945 ?Acct:[id number] ? Age/Sex: 79 / F ?ADM Date: 04/30/25 ? Loc: HO.MAMMO ? Attending Dr: Lisy Hooker MD ? Ordering Physician: Lisy Hooker MD ?Results: ? Date of Service: 09/24/24 ?Follow Up: ? Procedure(s): XR DEXA axial skeleton ?? Accession Number(s): [id number] ? cc: Lisy Hooker MD; Erik Farrar MD ? EXAMINATION: ??DXA BONE DENSITY AXIAL ? HISTORY: ??M80.00XS - Age-related osteoporosis with current pathological ?? fracture, ... ? TECHNIQUE: Simple [employer]mit Dual energy absorptiometry (DEXA) ?? of the [...] the [employer]'s ?? [place] for Metabolic Bone Disease, a World Health Organization (WHO) ?? Collaborating Center. ? Electronically signed by: ??Christopher Valdivia MD ??09/24/2024 10:39 AM EDT ?? RP ? Dictated By: ?Christopher Valdivia MD ? Signed By: ?<Electronically signed by Christopher Valdivia MD in OV> ?09/24/24 1039 ? DD/ 1015 ? TD/TT: 09/24/24 1030 ? Rn Hemo Dialysis: ? Procedure Note Tej, Image - 09/24/2024 [facility] [address] [place] [address] Dr. Álvarez, MIGUELINA [id number] Mammography Report Signed Patient: Vicky CraftMR#: [id number] 55 : 5Acct:[id number] Age/Sex: 79 / FADM Date: 09/24/24 Loc: HO.KAMRANO Attending Dr: Lisy Hooker MD Ordering Physician: Lisy Hookeresults: Date of Service: 09/24/24Follow Up: Procedure(s): XR DEXA axial skeleton Accession Number(s): [id number] cc: Lisy Hooker MD; Erik Farrar MD EXAMINATION: DXA BONE DENSITY AXIAL HISTORY: M80.00XS - Age-related osteoporosis with current pathological fracture, ... TECHNIQUE: Simple Admit Dual energy absorptiometry (DEXA) of the lumbar [...] of the [employer]'s [place] for Metabolic Bone Disease, a World Health Organization (WHO) Collaborating Center. Electronically signed by: Christopher Valdivia MD 09/24/2024 10:39 AM EDT Dictated By: Christopher Valdivia MD Signed By: <Electronically signed by Christopher Valdivia MD in OV> 09/24/24 1039 DD/ 1015 TD/TT: 09/24/24 1030 Rn Hemo Dialysis: [facility] External Provider IMG DXA PROCEDURES Edited Result - Final documented in this encounter Visit Diagnoses Not on filedocumented in this encounter Additional Health Concerns Assessment Noted Time PHQ-9 Depression Total Score: 1 09/27/19 24 11:43 AM EDT documented as of this encounter Care Teams Supervisor Relationship Specialty Start Date End Date Erik Gibbs MD [address] [place] [address] PCP - General Internal Medicine 02/18/19 documented as of this encounter
--- OUTSIDE RECORDS SUMMARY | 2024-09-24 12:41 | XMS_ITS | Encounter Summary ---
Author Organization [facility] Address [address] [place] [address] Care Team Providers Care Cyber Policy And Strategy Planner Name Role Phone Erik Motley MD Primary Care Provider [phone] Encounter Details Date Type Department Care Team (Late st Contact Info) Description 07/18/2019 Scanned Document [facility] Rheumatology [address] [phone] Raiza Luis MD Social History Tobacco Use [...] on filedocumented in this encounter Care Teams Cyber Policy And Strategy Planner Relationship Specialty Start Date End Date Erik Motley MD [address] [place] [address] [place] [address] PCP - General 07/18/19 documented as of this encounter
--- OUTSIDE RECORDS SUMMARY | 2024-09-24 12:41 | XMS_ITS | Clinical Summary ---
Author Organization [facility] Address [address] [place] [address] Care Team Providers Care Retail Support Associate Name Role Phone Erik Motley MD Primary Care Provider [phone] Allergies Active Allergy Reactions Criticality Noted Date [...] hours) as needed. Active nystatin (MYCOSTATIN, NYSTOP) 065724 UNIT/GM powderIndicatio ns:Intertrigino us dermatitis associated with [...] MG capsule 0 Active ergocalciferol (VITAMIN D2,DRISDOL) 41339 units CapIndications: Vitamin D deficiency TAKE 1 [...] a test for HCV RNA (test code 40658) is suggested. For additional information please refer to http://education.Conzoom.TechnoSpin/faq/YUO27a7 (This link is being provided for informational/ educational purposes only.) Blood specimen (specimen) 12/11/2018 10:46 AM EDT 12/11/2018 10:46 AM EDT Narrative [facility] - 12/17/2018 11:33 AM EDT FASTING:NO LTC ONLY: DIFFICULT DRAW. WILL RETRY ON NEXT SCHEDULED DAY. FASTING: NO Resulting Agency Comment Performing Organization Information: ?Site ID: [id number] ?Name: [employer] ?Address: [address] [place] [address], [place] [address] ?Director: Slava Hendricks MD Raiza Luis MD LAB BLOOD ORDERABLES Final Resul t [email or web address] [address], [place] [address] from Last 3 Months or Most Recently Relevant to Health Maintenance Insurance MEDICARE PART A & B MEDICAID OUT OF STATE [facility] on file Care Teams Retail Support Associate Relationship Specialty Start Date End Date Erik Motley MD [address] [place] [address] [place] [address] PCP - General 07/18/19
--- OUTSIDE RECORDS SUMMARY | 2024-09-24 12:41 | XMS_ITS | Encounter Summary ---
Author Organization [facility] Address [address] [place] [address] Care Team Providers Care Technical Services Librarian Name Role Phone Erik Motley MD Primary Care Provider [phone] Encounter Details Date Type Department Care Team (Late st Contact Info) Description 07/18/2019 Scanned Document [facility] Rheumatology [address] [phone] Raiza Luis MD Social History Tobacco Use [...] on filedocumented in this encounter Care Teams Technical Services Librarian Relationship Specialty Start Date End Date Erik Motley MD [address] [place] [address] [place] [address] PCP - General 07/18/19 documented as of this encounter
--- OUTSIDE RECORDS SUMMARY | 2024-09-24 12:41 | XMS_ITS | Clinical Summary ---
Author Organization [facility] Address [address] [place] [address] Phone Care Team Providers Care Teacher Assistant Name Role Phone Erik Farrar MD [facility] Surgical History Surgery Date Site/Laterality Comments [...] hemorrhoids. One diminutive tubular adenoma. 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 wer extremity ([facility] V24, [facility] V28) 08/11/2015 DX:Deep venous th rombosis of lower extremity (HCC); COMMENT: S/p IVC filter b/l 2001 Osteoarthritis 03/03/2016 DX:Osteoarthriti s; COMMENT: Cervical spine, shoulders, knees Left knee pain 05/02/2017 DX:Left knee dusty n Neck pain 05/02/2017 DX:Neck pain Shoulder pain, right 05/02/2017 DX:Shoulder pain, right Rheumatoid arthritis with rh eumatoid factor ([facility] V24, [facility] V28) 01/25/2017 DX:Rheumatoid arthri tis with rheumatoid factor ([facility]) Rheumatoid arthritis flare ( [facility] V24, [facility] V28) 07/26/2017 DX:Rheumatoid arthritis flar e ([facility]) Pulmonary embolus ([facility] V 24, [facility] V28) 06/18/2014 DX:Pulmonary embolus ([facility]) Popliteal fullness 05/02/2017 DX:Popliteal fullness B12 deficiency [...] age to complete this topic Care Teams Teacher Assistant Relationship Specialty Start Date End Date Erik Farrar MD [address] [place] [address] [facility] [place] [address] PCP - General Internal Medicine 02/19/19
--- OUTSIDE RECORDS SUMMARY | 2024-09-24 12:41 | XMS_ITS | Encounter Summary ---
Author Organization [facility] Address [address] [place] [address] Care Team Providers Care Director Of Culture Name Role Phone Erik Motley MD Primary Care Provider [phone] Encounter Details Date Type Department Care Team (Late st Contact Info) Description 10/31/2019 Scanned Document [facility] Rheumatology [address] [phone] Raiza Luis MD Social History Tobacco Use [...] on filedocumented in this encounter Care Teams Director Of Culture Relationship Specialty Start Date End Date Erik Motley MD [address] [place] [address] [place] [address] PCP - General 07/18/19 documented as of this encounter
--- OUTSIDE RECORDS SUMMARY | 2024-09-24 12:41 | XMS_ITS | Clinical Summary ---
Author Organization [employer] Address [address] [facility] 7t [place] [address] Care Team Providers Care Mainframe Software Developer Name Role Phone Erik Gibbs MD [...] Patient here for a HDF Admitted to [facility] from 02/05-02/07/2024 where she presented for evaluation [...] their notes She is being followed at [facility] Coumadin clinic Assessment & Plan (06/08/2022 8:25 [...] last 06/09/2021 She is being followed at [facility] Coumadin clinic Cobalamin deficiency 06/07/2022 Constipation 06/07/2022 [...] reports wheezing intermittently. Seen by Dr. Aviles Component Lab Tech 03/14/2024 he added Nikolai mott recommended full [...] care of a psychotherapist Symone Arce at [facility] [phone]) [phone] Javi Oshea On Duloxetine 20 mg capsule daily and temazepam 15 mg po qhs Rheumatoid arthritis 06/07/2022 Assessment & Plan (03/18/2024 2:56 PM EDT): Pt is here for a f/u She has RA diagnosed in 2000 She is followed at [facility] Rheumatology. Previously she was under the care of Raiza stauffer tel: [phone] In the past she was on Humira [...] diagnosed in 2000 She is followed at [facility] Rheumatology, last note 11/27/2022 Previously she was under the care of Raiza stauffer tel: [phone] In the past she was on Humira [...] diagnosed in 2000 She is followed at [facility] Rheumatology, last note 11/27/2022 Previously she was under the care of Raiza stauffer tel: [phone] In the past she was on Humira [...] diagnosed in 2000 She is followed at [facility] Rheumatology, last note 11/27/2022 Previously she was under the care of Raiza stauffer tel: [phone] In the past she was on Humira [...] a month once the ankle is resolved. Office Support Specialist to consider to try another medication for her RA if she has swelling and pain in her hands again. Follow-up with Rheumatology Assessment & Plan (01/16/2023 12:46 PM EDT): Pt is here for a f/u She has RA diagnosed in 2000 She is followed at [facility] Rheumatology, last note 11/27/2022 Previously she was under the care of Raiza stauffer tel: [phone] In the past she was on Humira [...] diagnosed in 2000 She is followed at [facility] Rheumatology, last note 03/14/2022 Previously she was under the care of Raiza stauffer tel: [phone] In the past she was on Humira and Prednisone with no good results. She was on Methotrexate, Kevsara nd Folic aci, but her Office Support Specialist recently held them due to a low WBC count of 3.2 she is getting weekly CBCs Assessment & Plan (06/08/2022 10:21 AM EST): Pt is here for a f/u She has RA diagnosed in 2000 She is followed at [facility] Rheumatology, last note 03/14/2022 Previously she was under the care of Raiza stauffer tel: [phone] In the past she was on Humira and Prednisone with no good results. She was on Methotrexate, Kevsara nd Folic aci, but her Office Support Specialist recently held them due to a low WBC count of 3.2 she is getting weekly CBCs Tubular adenoma of colon 06/07/2022 Assessment & Plan (03/18/2024 3:53 PM EDT): Colonoscopy: 11/14/2017 showed Tubular Adenoma 5 yr f/u recommended Pt referred to Dr. Baldwin, seen 03/12/2024 scheduled for colonoscopy at [facility] 03/25/2024 Assessment & Plan (06/08/2022 8:25 AM EST): Colonoscopy: 11/14/2017 showed Tubular Adenoma 5 yr f/u recommended Encounters Date Type Department Care Team Description 09/24/2024 Orders Only [facility] External Provider, [facility] 08/06/2024 Refill [facility] [address] [place] [address] Erik Gibbs MD 08/05/2024 Telephone [facility] MEDICINE [address] [place], [place] [phone] Erik Gibbs MD triage nurse from Last [...] 9:00 AM EDT Office Visit [facility] MEDICINE [address] [place] [address] Erik Gibbs MD [address] [place] [address] Health Maintenance Due Date Last Done Comments [...] EDT Narrative 09/24/2024 10:43 AM EDT ? [facility] ? [address] ?[place] [address] ?[phone] ? Mammography Report ? Signed ? Patient: Craft,Vicky ?MR#: [id number] ?? 55 ? : 1945 ?Acct:[id number] ? Age/Sex: 79 / F ?ADM Date: 04/30/25 ? Loc: HO.MAMMO ? Attending Dr: Lisy Hooker MD ? Ordering Physician: Lisy Hooker MD ?Results: ? Date of Service: 09/24/24 ?Follow Up: ? Procedure(s): XR DEXA axial skeleton ?? Accession Number(s): [id number] ? cc: Lisy Hooker MD; Erik Farrar MD ? EXAMINATION: ??DXA BONE DENSITY AXIAL ? HISTORY: ??M80.00XS - Age-related osteoporosis with current pathological ?? fracture, ... ? TECHNIQUE: [employer] Dual energy absorptiometry (DEXA) ?? of the [...] the [employer]'s ?? [place] for Metabolic Bone Disease, a World Health Organization (WHO) ?? Collaborating Center. ? Electronically signed by: ??Christopher Valdivia MD ??09/24/2024 10:39 AM EDT ?? RP ? Dictated By: ?Christopher Valdivia MD ? Signed By: ?<Electronically signed by Christopher Valdivia MD in OV> ?09/24/24 1039 ? DD/ 1015 ? TD/TT: 09/24/24 1030 ? Rn New Grad: ? Procedure Note Tej, Image - 09/24/2024 [facility] [address] [place] [address] Dr. Álvarez, MIGUELINA [address] Mammography Report Signed Patient: Vicky CraftMR#: [id number] 55 : 5Acct:[id number] Age/Sex: 79 / FADM Date: 09/24/24 Loc: HO.MAMMO Attending Dr: Lisy Hooker MD Ordering Physician: Lisy Hooker MDResults: Date of Service: 09/24/24Follow Up: Procedure(s): XR DEXA axial skeleton Accession Number(s): [id number] cc: Lisy Hooker MD; Erik Farrar MD EXAMINATION: DXA BONE DENSITY AXIAL HISTORY: M80.00XS - Age-related osteoporosis with current pathological fracture, ... TECHNIQUE: [employer] Dual energy absorptiometry (DEXA) of the lumbar [...] is a trademark of the [employer]'s [place] for Metabolic Bone Disease, a World Health Organization (WHO) Collaborating Center. Electronically signed by: Christopher Valdivia MD 09/24/2024 10:39 AM EDT RP Dictated By: Christopher Valdivia MD Signed By: <Electronically signed by Christopher Valdivia MD in OV> 09/24/24 1039 DD/ 1015 TD/TT: 09/24/24 1030 Rn New Grad: [facility] External Provider IMG DXA PROCEDURES Edited Result - Final * (ABNORMAL) Hm Colonoscopy (03/25/2024) Colonoscopy Abnormal(A ) Normal 03/25/2024 Erik Ortiz MD HEALTH MAINTENANCE nal Result * Hepatitis Panel, General (02/27/2024 2:38 PM EDT) Hepatitis A IgM Nonreactive Nonreactive [facility] Comment:IgM antibodies to BARRETO V not detected; does not exclude earlyacute or recovered HAV infection. ~Hepatitis B Surface Antibody NONREACTIVE Nonreactive [facility] Comment:Nonreactive: < 8.00 mIU/mL Hepatitis B Core Antibody Nonreactive Nonreactive [facility] Hepatitis C Antibody Nonreactive Nonreactive [facility] Comment:Antibodies to HCV no t detected; does not exclude early acuteHCV infection. Hepatitis B Surface Ag Negative Negative [facility] 02/27/2024 2:38 PM EDT 02/27/2024 2:38 PM EDT Generic External Data Provider LAB BLOOD ORDERAB LES Final Result [facility] [address] [place] [address] [phone] * (ABNORMAL) Lipid Panel, Standard (09/28/2023 10:45 AM EDT) Triglycerides 84 <150 mg/dL [facility] Comment:Desirable Triglyceri de: less than 150 mg/dLBorderline High Triglyceride 150-199 mg/dLHigh Triglyceride: 200-499 mg/dLVery High Triglyceride: greater than or equal to 5OO mg/dL Cholesterol 204(H) <200 mg/dL [facility] Comment:Desirable Cholestero l: less than 200 mg/dLBorderline High Cholesterol: 200-239 mg/dLHigh Cholesterol: greater than 239 mg/dL LDL Cholesterol Calculated 116(H) <100 mg/dL [facility] Comment:Desirable LDL: less than 100 mg/dLNear Optimal/Above Optimal LDL: 110- 129 mg/dLBorderline High LDL: 130-159 mg/dLHigh LDL: 160-189 mg/dLVery High LDL: greater than or equal to 190 mg/dL HDL Cholesterol 72 >40 mg/dL [facility] Comment:Desirable HDL: great er than 40 mg/dL Note: This HDL assay may give artificially low results in patients with liver disease. Blood Venous blood specimen / Unknown 09/28/2023 10:45 AM EDT 09/28/2023 11:35 AM EDT us Erik Ortiz MD LAB BLOOD ORDERABLES Final Result [facility] [address] [place], [place] [phone] from Last 3 Months or Most Recently Relevant to Health Maintenance Insurance [facility] [employer] (HMO D-SNP) SHYANNE SÁNCHEZ [id number] Care Teams Mainframe Software Developer Relationship Specialty Start Date End Date Erik Gibbs MD [address] [place] [address] PCP - General Internal Medicine 02/18/19
--- OUTSIDE RECORDS SUMMARY | 2024-09-24 12:42 | XMS_ITS | Encounter Summary ---
Author Organization [facility] Address [address] [place] [address] Care Team Providers Care Area Cleaner Name Role Phone Jacob Manuel MD Primary Care Provider Pcp, No Primary Care Provider Erik Hamilton MD Primary Care Provider [phone] Encounter Details Date Type Department Care Team (Late st Contact Info) Description 03/31/2019 Scanned Document [facility] Rheumatology [address] [phone] Raiza Luis MD Social History Tobacco Use [...] on filedocumented in this encounter Care Teams Area Cleaner Relationship Specialty Start Date End Date Jacob Manuel MD [address] [place] [address] PCP - General Internal Medicine 11/08/18 04/29/19 Pcp, No PCP - General 05/19/19 07/17/19 Erik Motley MD [address] [place] [address] [place] [address] PCP - General 07/18/19 documented as of this encounter
--- OUTSIDE RECORDS SUMMARY | 2024-09-24 12:42 | XMS_ITS | Encounter Summary ---
Author Organization [employer] Address [address] [facility] 7t [place] [address] Care Team Providers Care Corrections Caseworker Name Role Phone Erik Gibbs MD Primary Care Provide r Encounter Details Date Type Department Care Team ([facility] st Contact Info) Description 09/13/2023 Telephone [facility] MEDICINE [address] [place], [place] [phone] Erik Gibbs MD [address] [place], [place] [phone] Social History Tobacco Use Types Packs/Day Years Used Date Smoking Tobacco: Never Passive Smoke Exposure: Never Smokeless Tobacco: Never Depression Answer Date Recorded Patient Health Questionnaire-9 Score 0 07/04/2022 Housing Stability Answer Date Recorded What is your housing situation today? I have ella hikcey 03/12/[address] you li [...] Patient will recheck tomorrow and follow with [facility] Anticoag with result. Warfarin on hold for today. Please update PCP as indicated. documented in this encounter Plan of Treatment Upcoming Encounters Date Type Department Care Team (Late st Contact Info) Description 11/25/2024 9:00 AM EDT Office Visit [facility] MED[facility] [address] [place] [address] Erik Gibbs MD [address] [place] [address] documented as of this encounter Goals Goal [...] documented as of this encounter Care Teams Corrections Caseworker Relationship Specialty Start Date End Date Erik Gibbs MD [address] [place] [address] PCP - General Internal Medicine 02/18/19 documented as of this encounter
--- OUTSIDE RECORDS SUMMARY | 2024-09-24 12:42 | XMS_ITS | Encounter Summary ---
Author Organization [facility] Address [address] [place] [address] Care Team Providers Care Regroover Name Role Phone Jacob Manuel MD Primary Care Provider Pcp, No Primary Care Provider Erik Hamilton MD Primary Care Provider [phone] Encounter Details Date Type Department Care Team (Late st Contact Info) Description 12/13/2018 Scanned Document [facility] Rheumatology [address] [phone] Raiza Luis MD Social History Tobacco Use [...] on filedocumented in this encounter Care Teams Regroover Relationship Specialty Start Date End Date Jacob Manuel MD [address] [place] [phone] PCP - General Internal Medicine 11/08/18 04/29/19 Pcp, No PCP - General 05/19/19 07/17/19 Erik Motley MD [address] [place] [address] [place] [address] PCP - General 07/18/19 documented as of this encounter
--- OUTSIDE RECORDS SUMMARY | 2024-09-24 12:42 | XMS_ITS | Encounter Summary ---
Author Organization [email or web address] Address [address] [facility] 7t [place] [address] Care Team Providers Care Distillery Miller Helper Name Role Phone Erik Gibbs MD Primary Care Provide r Encounter Details Date Type Department Care Team ([facility] st Contact Info) Description 05/08/2023 Telephone [facility] MEDICINE [address] [place], [place] [phone] Erik Gibbs MD [address] [place], [place] [phone] Social History Tobacco Use Types Packs/Day Years [...] Description 11/25/2024 9:00 AM EDT Office Visit [facility] MED[facility]INE [address] [place] [address] Erik Gibbs MD [address] [place] [address] documented as of this encounter Visit Diagnoses Not on filedocumented in this encounter Additional Health Concerns Assessment Noted Time PHQ-9 Depression Total Score: 0 07/04/19 23 10:11 AM EST documented as of this encounter Care Teams Distillery Miller Helper Relationship Specialty Start Date End Date Erik Gibbs MD [address] [place] [address] PCP - General Internal Medicine 02/18/19 documented as of this encounter
--- OUTSIDE RECORDS SUMMARY | 2024-09-24 12:42 | XMS_ITS | Encounter Summary ---
Author Organization [employer] Address [address] [facility] 7t [place] [address] Care Team Providers Care Data Integrity Specialist Name Role Phone Erik iGbbs MD Primary Care Provide r Encounter Details Date Type Department Care Team ([facility] st Contact Info) Description 05/08/2023 Telephone [facility] MEDICINE [address] [place], [place] [phone] Erik Gibbs MD [address] [place], [place] [phone] Social History Tobacco Use Types Packs/Day Years [...] to this patient from Jennifer HUNTER @ [facility]. Patient presented to Anticoag clinic. She [...] Description 11/25/2024 9:00 AM EDT Office Visit [facility] MED[facility]INE [address] [place] [address] Erik Gibbs MD [address] [place] [address] documented as of this encounter Visit Diagnoses Not on filedocumented in this encounter Additional Health Concerns Assessment Noted Time PHQ-9 Depression Total Score: 0 07/04/19 23 10:11 AM EST documented as of this encounter Care Teams Data Integrity Specialist Relationship Specialty Start Date End Date Erik Gibbs MD [address] [place] [address] PCP - General Internal Medicine 02/18/19 documented as of this encounter
--- OUTSIDE RECORDS SUMMARY | 2024-09-24 12:42 | XMS_ITS | Encounter Summary ---
Author Organization [employer] Address [address] [facility] 7t [place] [address] Care Team Providers Care Knockout Man Name Role Phone Erik Gibbs MD Primary Care Provide r Reason for Visit * Reason Onset Date Comments Medication Question 05/17/2023 Encounter Details Date Type Department Care Team ([facility] st Contact Info) Description 05/17/2023 Telephone [facility] MEDICINE [address] [place], [place] [phone] Erik Gibbs MD [address] [place], [place] [phone] Medication Question Social History Tobacco Use Types [...] Description 11/25/2024 9:00 AM EDT Office Visit [facility]INE [address] [place] [address] Erik Gibbs MD [address] [place] [address] documented as of this encounter Visit Diagnoses Not on filedocumented in this encounter Additional Health Concerns Assessment Noted Time PHQ-9 Depression Total Score: 0 07/04/19 23 10:11 AM EST documented as of this encounter Care Teams Knockout Man Relationship Specialty Start Date End Date Erik Gibbs MD [address] [place] [address] PCP - General Internal Medicine 02/18/19 documented as of this encounter
--- OUTSIDE RECORDS SUMMARY | 2024-09-24 12:42 | XMS_ITS | Encounter Summary ---
Author Organization [employer] Address [address] [facility] 7t [place] [address] Care Team Providers Care Oceanology Teacher Name Role Phone Erik Gibbs MD Primary Care Provide r Reason for Visit * Reason Comments Med Refill Encounter Details Date Type Department Care Team ([facility] st Contact Info) Description 08/07/2023 Refill [facility] MEDICINE [address] [place], [place] [phone] Erik Gibbs MD [address] [place], [place] [phone] Social History Tobacco Use Types Packs/Day Years [...] Office Visit [facility] MED[facility]INE [address] [place], [place] [phone] Erik Gibbs MD [address] [place] [address] documented as of this encounter Goals Goal [...] documented as of this encounter Care Teams Oceanology Teacher Relationship Specialty Start Date End Date Erik Gibbs MD [address] [place] [address] PCP - General Internal Medicine 02/18/19 documented as of this encounter
--- OUTSIDE RECORDS SUMMARY | 2024-09-24 12:42 | XMS_ITS | Encounter Summary ---
Author Organization [employer] Address [address] [facility] 7t [place] [address] Care Team Providers Care Valve Repairer Name Role Phone Erik Gibbs MD Primary Care Provide r Reason for Visit * Reason Comments Med Refill Encounter Details Date Type Department Care Team ([facility] st Contact Info) Description 07/15/2023 Refill [facility] MEDICINE [address] [place], [place] [phone] Yovana Moore MD [address] [place], [place] [phone] Social History Tobacco Use Types Packs/Day Years [...] t he electric, gas, oil or water [employer] threatened to shut off services in your [...] Visit [facility] MEDICINE [address] [place], [place] [phone] Erik Gibbs MD [address] [place] [address] documented as of this encounter Goals Goal [...] documented as of this encounter Care Teams Valve Repairer Relationship Specialty Start Date End Date Erik Gibbs MD [address] [place], [place] [phone] PCP - General Internal Medicine 02/18/19 documented as of this encounter
--- OUTSIDE RECORDS SUMMARY | 2024-09-24 12:42 | XMS_ITS | Encounter Summary ---
Author Organization [employer] Address [address] [facility] 7t [place] [address] Care Team Providers Care Signal Operator Technical Name Role Phone Erik Gibbs MD Primary Care Provide r Encounter Details Date Type Department Care Team ([facility] st Contact Info) Description 09/12/2023 Telephone [facility] MEDICINE [address] [place], [place] [phone] Erik Gibbs MD [address] [place], [place] [phone] Social History Tobacco Use Types Packs/Day Years [...] Description 11/25/2024 9:00 AM EDT Office Visit [facility] MEDICINE [address] [place], [place] [phone] Erik Gibbs MD [address] [place] [address] documented as of this encounter Goals Goal [...] documented as of this encounter Care Teams Signal Operator Technical Relationship Specialty Start Date End Date Erik Gibbs MD [address] [place], [place] [phone] PCP - General Internal Medicine 02/18/19 documented as of this encounter
[2024-09-24 13:17] LABS: Basophils Absolute Auto 0.1 X10*3/uL (0.0-0.2); Basophils Percent Auto 1.6 % (0-2); Eosinophils Absolute Auto 0.3 X10*3/uL (0.0-0.4); Eosinophils Percent Auto 8.8 % (0-4); Hematocrit 38.3 % (37.0-47.0); Hemoglobin 11.6 g/dl (12.0-16.0); Lymphocytes Percent Auto 53.3 % (20-40); MANUAL DIFF FLAG SCAN; Mean Corpuscular HGB Conc 30.3 g/dl (31.0-35.0); Mean Corpuscular Hemoglobin 25.1 pg (27.0-33.0); Mean Corpuscular Volume 82.9 fL (80.0-98.0); Mean Platelet Volume 10.6 fL (9.4-12.3); Monocytes Absolute Auto 0.4 X10*3/uL (0.1-1.2); Monocytes Percent Auto 10.9 % (2-11); Neutrophils Percent Auto 25.4 % (45-73); Platelet Count 253 X10*3/uL (160-400); Red Blood Count 4.62 X10*6/uL (4.20-5.50); Red Cell Distribution Width 16.4 % (11.0-16.0); SCAN SMEAR FLAG 1; White Blood Count 3.8 X10*3/uL (4.8-10.8)
[2024-09-24 13:36] LABS: Alanine Aminotransferase 10 U/L (0-31); Albumin Level 3.6 g/dL (3.5-5.0); Alkaline Phosphatase 74 U/L (39-117); Anion Gap 10 (12-20); Aspartate Amino Transferase 28 U/L (5-31); Bilirubin Total 0.4 mg/dL (0.0-1.0); Blood Urea Nitrogen 16 mg/dL (9-16); C Reactive Protein 0.27 mg/dL (< or = 0.50); Calcium 9.4 mg/dL (8.4-10.2); Carbon Dioxide 26 mmol/L (22-29); Chloride 109 mmol/L (96-108); Estimated Glomerular Filt Rate > 60; Glucose Random 88 mg/dL (60-115); Potassium 4.7 mmol/L (3.3-5.1); Sodium 140 mmol/L (135-145); Total Protein 6.9 g/dL (6.5-8.0)
[2024-09-24 13:50] LABS: Vitamin D 25-OH Total 43.4 ng/mL (>30)
[2024-09-24 13:52] LABS: HBS Num1 1.67 mIU/mL (0-7.99); HBc Num1 0.04 S/CO (0.00-0.79); Hepatitis B Core Antibody Nonreactive (Nonreactive); Hepatitis B Surface Antigen Negative (Negative); ~HepC Num1 0.05 S/CO (0.00-0.79); ~Hepatitis B Surface Antibody NONREACTIVE (Nonreactive); ~Hepatitis C Antibody Nonreactive (Nonreactive)
[2024-09-24 13:53] LABS: Erythrocyte Sedimentation Rate 20 MM/HR (0-20)
[2024-09-24 14:40] LABS: SLIDE REVIEW VERIFIED
[2024-09-25 08:19] LABS: Hepatitis A Antibody IgM 0.15 Index (0-0.79); ~Hepatitis A Antibody IgM Nonreactive (Nonreactive)
[2024-09-27 11:13] LABS: TS Negative Control Passed; TS Panel A 0; TS Panel B 2; TS Positive Control Passed; TSpotTB Negative (Negative)
== END 2024-09-24 11:06 | disposition home or self-care (01) ==
LOC: HO.10HDL 11:05
PROVIDERS: Visit Provider Student in an Organized Health Care Education/Training Program
DX: Z13.89 Encounter for screening for other disorder (principal)
CPT/HCPCS: 36415; 80053; 82306; 85025; 85652; 86140; 86481; 86704; 86706; 86709; 86803; 87340

== ENCOUNTER 2024-10-16 14:14 | Outpatient (AMB) | payer OTHER, SELFPAY ==
--- NOTE | 2024-10-16 14:16 | MHC.OFFVIS ---
Vital Signs 10/16/24 14:25 Height 5 ft 3 in Weight 162 lb 7.691 oz BMI 28.8 BP 124/80 Blood Pressure Location Lt brachial Position Sitting Pulse 58 Pulse Source Pulse Oximeter Pulse Oximetry (%) 98 Oxygen Delivery Method Room Air Intake Visit Reasons: osteoporosis f/u Intake Note: Patient presents for Osteoporosis follow up. Rivet Flunky Required: Yes Rivet Flunky Language: Correctional Treatment Specialist Services: Rivet Flunky Offered & Declined Rivet Flunky Name: Yolanda Khanna Information Interpreted: non-clinical & clinical Safety Inspector: Safety Inspector Present (Yolanda Khanna) Accompanied by: Other Relationship Allergies BERNADETTE Inhibitors Allergy (Severe, Verified 10/16/24 14:24) Angioedema Iodinated Contrast Media [CONTRAST, IV] Allergy (Intermediate, Verified 10/16/24 14:24) SWELLING, ITCHINESS, RASH Penicillins [PENICILLINS] Allergy (Intermediate, Verified 10/16/24 14:24) ITCHINESS, RASH, SWELLING latex Allergy (Verified 10/16/24 14:24) Hives Sulfa (Sulfonamide Antibiotics) Allergy (Verified 10/16/24 14:24) Unknown zoledronic acid [From Reclast] Adverse Reaction (Verified 10/16/24 14:24) Joint Pain Medication List - Last Reconciled 10/16/24 by Lisy Hooker MD acetaminophen (Mapap (acetaminophen)) 500 mg PO DAILY albuterol sulfate 90 mcg/actuation 2 puffs inhalation Q4H PRN apixaban (Eliquis) 5 mg PO BID atorvastatin 20 mg PO BEDTIME cholecalciferol (vitamin D3) 50 mcg PO DAILY cyanocobalamin (vitamin B-12) 1,000 mcg sublingual DAILY duloxetine 60 mg PO DAILY hydrochlorothiazide 12.5 mg PO DAILY leflunomide 20 mg PO DAILY lorazepam 0.5 mg PO DAILY PRN metoprolol succinate ER 50 mg PO DAILY mirabegron ER (Myrbetriq) 50 mg PO DAILY multivitamin 1 tab PO DAILY omeprazole 40 mg PO DAILY prednisone 5 mg PO DAILY PRN temazepam 30 mg PO BEDTIME PRN HPI Comments Details: Patient is a 79-year-old female with hypertension, hyperlipidemia, atrial fibrillation complicated by history of PE on anticoagulation, osteoporosis complicated by lumbar compression fracture and seropositive erosive rheumatoid arthritis here today for follow up Interval History: Patient last seen 06/24/2024 with me. At that time she was on leflunomide 20 mg daily sparingly prednisone 5 mg. She did have some tenderness to palpation of her ankle and we discussed escalating therapy versus continuing with the current therapy and intermittent prednisone and patient and daughter opted for continuing current therapy. Patient may also received her 2nd dose of Prolia at that time Today, Patient doing well but complaining of neck and back pain Received shoulder injections 1 week ago from orthopedics Rheumatologic History: +++RF+++CCP Humira October 2019- February 2020 - not effective Enbrel- February 2020 to April 2020- self stopped due to cholecystitis, then had cholecystectomy. 06/2020 Low dose methothrexate - partial effective so Kevzara started July 2020- discontinued June 2022 due to neutropenia and leukopenia Methotrexate: January 2020 discontinued 06/2022 due to neutropenia. Out of touch in [place] 06/2022 to 11/2022. MTx restarted 02/2023 MTX DC 06/2023 due to GI upset Leflunomide 06/2023 effective Current Rheumatology Medication(s): Leflunomide 20 mg daily Prednisone 5 mg prn Prolia 60 mg sc every 6 months [facility] Medical History (Updated 10/16/24 @ 14:59 by Lisy Hooker MD) Encounter for monitoring denosumab therapy On snf leflunomide therapy Encounter for monitoring leflunomide therapy Right ankle swelling Long-term use of immunosuppressant medication Dry skin dermatitis Leg edema Surgical History History of cholecystectomy History of appendectomy History of total abdominal hysterectomy and bilateral salpingo-oophorectomy History of bariatric surgery History of colonoscopy Family History Father Asthma Mother Rheumatoid arthritis Cardiovascular disease Social History Household Members: Family Housing: House Are you a primary care coordination manager to a significant other at home: No Do you presently have visiting nurse or other home services: Yes (PT 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 a MOLDER CLOSED MOLDS) Alcohol intake: never Patient Tobacco Use Status: Never used Tobacco Advance Directives Date on File: 02/06/24 service: No Current occupational status: disabled Review of Systems Const Details: Review of Systems Constitutional: Denies fever, chills, weight loss ENT: Denies vision changes, eye pain or eye redness, dental caries, dry mouth GI: Denies nausea, vomiting, diarrhea, abdominal pain, change in BM Pulm: Denies SOB, [place], hemoptysis, wheezing Cards: Denies chest pain, palpitations Skin: Denies Raynaud's, rash, nail changes, photosensitivity, IT CONSULTING MANAGER: Denies headaches, weakness, paresthesias, recurrent falls MSK: as per HPI All other systems reviewed and are unremarkable except noted above Physical Exam Vital Signs: Last Vital Signs Pulse 58 10/16/24 14:25 BP 124/80 10/16/24 14:25 Pulse Ox 98 10/16/24 14:25 Oxygen Delivery Method Room Air 10/16/24 14:25 BMI result Body Mass Index 28.8 Vital signs reviewed Physical Examination CONSTITUITIONAL Patient alert and cooperative. Well appearing and in no apparent painful distress HEENT Conjunctiva and sclera clear. ?Pupils equal round and reactive to light. ?No lymphadenopathy. ? CHEST/RESPIRATORY SYSTEM Normal respiratory effort and able to speak in complete sentences. ?Clear to auscultation bilaterally. ?No crackles, rales, rhonchi, wheezes heard. CARDIAC SYSTEM Regular rate and rhythm. ?S1 and S2 heard no murmurs. ?Radial pulses intact bilaterally MSK Hands: ?Good financial reserve clerk strength bilaterally. No deformities noted. ?No synovitis noted to the MCPs, PIPs or DIPs. ?No tenderness to palpation of these joints. Reducible swan-neck deformity of the right 5th digit Wrists: ?Full range of motion at the wrists without pain. ?No tenderness to palpation or synovitis noted to the wrists. Elbows: Full range of motion without pain. No tenderness, weakness, swelling, increased warmth or erythema. Shoulders: Full range of motion without pain. No tenderness, weakness, swelling, increased warmth or erythema. Knees: ?Full range of motion. ?No tenderness, swelling, increased warmth or erythema.?No effusion or crepitations Ankles: Full range of motion. ?Mild tenderness to palpation of the left ankle without swelling. Feet: ?Negative squeeze test. ?No tenderness to palpation or swelling of the MTPs. Tender points:?No tenderness to palpation of the bilateral trapezius, supraspinatus, greater trochanters, anterior costochondral junctions, bilateral gluteal areas, bilateral suboccipital muscle insertions SKIN Skin intact without rashes. Results Reviewed Results Reviewed: Laboratory Tests 09/24/24 11:10 WBC 3.8 L RBC 4.62 Hgb 11.6 L Hct 38.3 Plt Count 253 ESR 20 Sodium 140 Potassium 4.7 D Chloride 109 H Carbon Dioxide 26 BUN 16 Creatinine 0.85 AST 28 ALT 10 C-Reactive Protein 0.27 25-OH Vitamin D Total 43.4 Infectious Labs 09/24/24 11:10 Hepatitis A IgM Ab Nonreactive Hep Bs Antigen Negative Hep Bs Antibody NONREACTIVE Hep B Core Total Ab Nonreactive Hepatitis C Ab (EIA) Nonreactive TB Test (T-Spot) Com Negative DEXA 08/2024 FINDINGS: The bone mineral density of the lumbar spine is 0.892 with a T-score of -2.3, and a Z-score of -0.8. This is indicative of osteopenia. This represents a BMD change of 19.3% compared to the prior exam. This is statistically significant. The bone mineral density of the left total hip is 0.722 with a T-score of -2.3, and a Z-score of -0.5. This is indicative of osteopenia. This represents a BMD change of -2.4% compared to the prior exam. This is not statistically significant. The bone mineral density of the left femoral neck is 0.596 with a T-score of -3.2, and a Z-score of -1.2. This is indicative of osteoporosis. Assessment & Plan Assessment & Plan (1) Seropositive rheumatoid arthritis: Comment: +++RF+++CCP Humira October 2019- February 2020 - not effective Enbrel- February 2020 to April 2020- self stopped due to cholecystitis, then had cholecystectomy. 06/2020 Low dose methothrexate - partial effective so Kevzara started July 2020- discontinued June 2022 due to neutropenia and leukopenia Methotrexate: January 2020 discontinued 06/2022 due to neutropenia. Out of touch in [place] 06/2022 to 11/2022. MTx restarted 02/2023 MTX DC 06/2023 due to GI upset Leflunomide 06/2023 effective Code(s): M05.9 - Rheumatoid arthritis with rheumatoid factor, unspecified Category: Medical Plan: #Seropositive RA Patient is a 79-year-old female with seropositive erosive rheumatoid arthritis. Patient with low disease activity. Still uses prednisone. i'm okay with that for now since there is now evidence of significant synovitis on exam and she has normal ESR and CRP. Offered referral to pain management for neck pain but patient deferred. Plan - Leflunomide 20 mg daily - Prednisone 5 mg daily prn - RTC 4 months - Labs prior to visit: CBC, CMP, ESR, CRP (2) Osteoporosis: Comment: MRI lumbar spine 06/2021: Moderate benign appearing compression fracture along superior endplate T11 and T12 DEXA 12/2021: AP Spine -3.5, Left femur neck -1.2, Left femur total -0.5 DEXA 08/2024: AP Spine -2.3, Left femur neck -3.2, Left femur total -2.3 Started on alendronate, patient did not receive medication. Prolia avoided due to latex allergy. Reclast denied by insurance company. Alendronate reordered May 2022 pharmacy did not fill due to listed allergy of bisphosphonates. Reviewed with patient, she remembered that she took Reclast in the past and had head to toe joint pain after infusion requiring hospitalization. Patient agrees to retry alendronate June 2022 - not tolerated. Prolia given 11/2022, 05/2024 Code(s): M81.0 - Age-related osteoporosis without current pathological fracture Category: Medical Qualifiers: Osteoporosis type: age-related Presence of current pathological fracture: with current pathological fracture Encounter type: sequela Qualified Code(s): M80.00XS - Age-related osteoporosis with current pathological fracture, unspecified site, sequela Plan: #Osteoporosis complicated by lumbar compression fractures Patient currently receiving Prolia. No further fractures or falls. 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) use of other immunomodulators and immunosuppressants Category: Medical Plan: #Long-term leflunomide Discussed with patient the benefits and risks of leflunomide for managing the rheumatic condition Benefits include: - Reduced pain, maintenance of remission and reduction of flares Risks include: - GI upset especially diarrhea, skin rash, cytopenias, hepatotoxicity, weight loss, neuropathy Monitoring: ?CBC, BMP, LFTs, hepatitis B and C serologies (4) On ferry terminal supervisor leflunomide therapy: Code(s): Z79.69 - FDC (current) use of other immunomodulators and immunosuppressants Category: Medical Plan: #Long-term leflunomide Discussed with patient the benefits and risks of leflunomide for managing the rheumatic condition Benefits include: - Reduced pain, maintenance of remission and reduction of flares Risks include: - GI upset especially diarrhea, skin rash, cytopenias, hepatotoxicity, weight loss, neuropathy (5) Encounter for monitoring denosumab therapy: Code(s): Z51.81 - Encounter for therapeutic drug level monitoring; Z79.620 - FDC (current) use of immunosuppressive biologic Category: Medical Plan: #Long-term use of Denosumab Discussed with patient the risks and benefits of denosumab (Prolia) for the management of their osteoporosis Benefits include improved bone density, decreased fracture risk Risks include rapid bone loss if denosumab stopped, osteonecrosis of the jaw especially in patients with poor oral hygiene/diabetes/use of glucocorticoids/age greater than 65 years, atypical femoral fractures, injection site reactions. Mild increased risk of infections due to RANKL on T helper cells, increased risk of hypocalcemia especially in CKD patients Keep vitamin-D at least 35 ng/mL Advised to delay non emergent dental procedures to toward the end of the 6 month cycle and if they plan to stop denosumab would need to continue antiresorptive to maintain the effects of denosumabe Plan I spent 30 minutes reviewing the record and labs, taking a history, examining the patient, discussing the treatment plan and documenting in the medical record Medications: Refilled prednisone 5 mg PO DAILY PRN 30 tabs 2RF pain and swelling M05.9 - Rheumatoid arthritis with rheumatoid factor, unspecified leflunomide 20 mg PO DAILY 90 tabs 1RF M05.9 - Rheumatoid arthritis with rheumatoid factor, unspecified Coding Level of Care Code Est Pt Level 4 (62924) Complex EM visit Add On G2211 Diagnoses Seropositive rheumatoid arthritis M05.9 Age-related osteoporosis with current pathological fracture, sequela M80.00XS Osteoporosis type: age-related Presence of current pathological fracture: with current pathological fracture Encounter type: sequela Encounter for monitoring leflunomide therapy Z51.81; Z79.69 On ferry terminal supervisor leflunomide therapy Z79.69 Encounter for monitoring denosumab therapy Z51.81; Z79.620
--- OUTSIDE RECORDS SUMMARY | 2024-10-16 14:22 | XMS_ITS | Clinical Summary ---
Author Organization [employer] Address [address] [facility] 7[address] [place] [address] Care Team Providers Care Welding Machine Operator Electro Gas Name Role Phone Erik Gibbs MD Primary [...] Patient here for a HDF Admitted to [facility] from 02/05-02/07/2024 where she presented for evaluation [...] cardiology referral for Holter Age-related osteoporosis wit hout current pathological fracture 05/31/2023 Assessment & Plan [...] their notes She is being followed at [facility] Coumadin clinic Assessment & Plan (06/08/2022 8:25 [...] last 06/09/2021 She is being followed at [facility] Coumadin clinic Cobalamin deficiency 06/07/2022 Constipation 06/07/2022 [...] reports wheezing intermittently. Seen by Dr. Aviles Lip Cutter 03/14/2024 he added Nikolai mott recommended full [...] care of a psychotherapist Symone Arce at [facility] [phone] Javi Oshea On Duloxetine 20 mg capsule daily and temazepam 15 mg po qhs Rheumatoid arthritis 06/07/2022 Assessment & Plan (03/18/2024 2:56 PM EDT): Pt is here for a f/u She has RA diagnosed in 2000 She is followed at [facility] Rheumatology. Previously she was under the care of Raiza stauffer tel: [phone] In the past she was on Humira [...] diagnosed in 2000 She is followed at [facility] Rheumatology, last note 11/27/2022 Previously she was under the care of Raiza stauffer tel: [phone] In the past she was on Humira [...] diagnosed in 2000 She is followed at [facility] Rheumatology, last note 11/27/2022 Previously she was under the care of Raiza stauffer tel: [phone] In the past she was on Humira [...] diagnosed in 2000 She is followed at [facility] Rheumatology, last note 11/27/2022 Previously she was under the care of Raiza stauffer tel: [phone] In the past she was on Humira [...] a month once the ankle is resolved. Table Games Dual Rate Supervisor to consider to try another medication for her RA if she has swelling and pain in her hands again. Follow-up with Rheumatology Assessment & Plan (01/16/2023 12:46 PM EDT): Pt is here for a f/u She has RA diagnosed in 2000 She is followed at [facility] Rheumatology, last note 11/27/2022 Previously she was under the care of Raiza stauffer tel: [phone] In the past she was on Humira [...] diagnosed in 2000 She is followed at [facility] Rheumatology, last note 03/14/2022 Previously she was under the care of Raiza stauffer tel: [phone] In the past she was on Humira and Prednisone with no good results. She was on Methotrexate, Kevsara nd Folic aci, but her [employer] Dual Rate Supervisor recently held them due to a low WBC count of 3.2 she is getting weekly CBCs Assessment & Plan (06/08/2022 10:21 AM EST): Pt is here for a f/u She has RA diagnosed in 2000 She is followed at [facility] Rheumatology, last note 03/14/2022 Previously she was under the care of Raiza stauffer tel: [phone] In the past she was on Humira and Prednisone with no good results. She was on Methotrexate, Kevsara nd Folic aci, but her [employer] Dual Rate Supervisor recently held them due to a low [...] Encounters Date Type Department Care Team Description 10/16/2024 Refill [facility] [address] [place] [address] Erik Gibbs MD Mixed hyperlipidemia 09/24/2024 Orders Only [facility] External Provider, [facility] 08/06/2024 Refill [facility] [address] [place] [address] Erik Gibbs MD 08/05/2024 Telephone [facility] [address] [place] [address] Erik Gibbs MD triage nurse from Last 3 Months Immunizations Immunization Administration Dates Next Due Hep B, adult [...] Description 11/25/2024 9:00 AM EDT Office Visit [facility] [address] [place] [address] Erik Gibbs MD [address] [place], [place] [id number] Health Maintenance Due Date Last Done Comments COVID-19 Vaccine ( season) 2024 03/18/2024, 03/23/2022, 05/13/2021, Additional history exists Depression Screening 09/26/2024 09/27/2023, 09/27/19 24 SDOH [...] C Screening Completed 02/27/2024 , 07/10/2022, 10/24/2019 Colonoscopy Discontinued 03/25/2024 Colorectal Cancer Screening Discontinued [...] EDT Narrative 09/24/2024 10:43 AM EDT ? [facility] ? [address] ?[place] [address] ?[phone] ? Mammography Report ? Signed ? Patient: Craft,Vicky ?MR#: [id number] ?? 55 ? : 1945 ?Acct:[id number] ? Age/Sex: 79 / F ?ADM Date: 09/24/24 ? Loc: HO.MAMMO ? Attending Dr: Lisy Hooker MD ? Ordering Physician: Lisy Hooker MD ?Results: ? Date of Service: 09/24/24 ?Follow Up: ? Procedure(s): XR DEXA axial skeleton ?? Accession Number(s): [id number] ? cc: Lisy Hooker MD; rEik Farrar MD ? EXAMINATION: ??DXA BONE DENSITY AXIAL ? HISTORY: ??M80.00XS - Age-related osteoporosis with current pathological ?? fracture, ... ? TECHNIQUE: monEchelle Dual energy absorptiometry (DEXA) ?? of the [...] is a trademark of the [employer]'s ?? [place] for Metabolic Bone Disease, a World Health Organization (WHO) ?? Collaborating Center. ? Electronically signed by: ??Christopher Valdivia MD ??09/24/2024 10:39 AM EDT ?? RP ? Dictated By: ?Christopher Valdivia MD ? Signed By: ?<Electronically signed by Christopher Valdivia MD in OV> ?09/24/24 1039 ? DD/ 1015 ? TD/TT: 09/24/24 1030 ? Preparation Plant Supervisor: ? Procedure Note Tej, Image - 09/24/2024 [facility] [address], [place] [address] Mammography Report Signed Patient: Vicky CraftMR#: [id number] 55 : 5Acct:[id number] Age/Sex: 79 / FADM Date: 09/24/24 Loc: [facility] Attending Dr: Lisy Hooker MD Ordering Physician: Lisy Hooker MDResults: Date of Service: 09/24/24Follow Up: Procedure(s): XR DEXA axial skeleton Accession Number(s): [id number] cc: Lisy Hooker MD; Erik Farrar MD EXAMINATION: DXA BONE DENSITY AXIAL HISTORY: M80.00XS - Age-related osteoporosis with current pathological fracture, ... TECHNIQUE: monEchelle Dual energy absorptiometry (DEXA) of the lumbar [...] is a trademark of the [employer]'s [place] [facility] Metabolic [employer] Disease, a World Health Organization (WHO) Collaborating Center. Electronically signed by: Christopher Valdivia MD 09/24/2024 10:39 AM EDT RP Dictated By: Christopher Valdivia MD Signed By: <Electronically signed by Christopher Valdivia MD in OV> 09/24/24 1039 DD/ 1015 TD/TT: 09/24/24 1030 Preparation Plant Supervisor: [facility] External Provider IMG DXA PROCEDURES Edited Result - Final * (ABNORMAL) Hm Colonoscopy (03/25/2024) Colonoscopy Abnormal(A ) Normal 03/25/2024 Erik Ortiz MD HEALTH MAINTENANCE Fi nal Result * Hepatitis Panel, General (02/27/2024 2:38 PM EDT) Hepatitis A IgM Nonreactive Nonreactive [facility] Comment:IgM antibodies to BARRETO V not detected; does not exclude earlyacute or recovered HAV infection. ~Hepatitis B Surface Antibody NONREACTIVE Nonreactive [facility] Comment:Nonreactive: < 8.00 mIU/mL Hepatitis B Core Antibody Nonreactive Nonreactive [facility] Hepatitis C Antibody Nonreactive Nonreactive [facility] Comment:Antibodies to HCV no t detected; does not exclude early acuteHCV infection. Hepatitis B Surface Ag Negative Negative [facility] 02/27/2024 2:38 PM EDT 02/27/2024 2:38 PM EDT Generic External Data Provider LAB BLOOD ORDERAB LES Final Result [facility] [address] [place] [phone] * (ABNORMAL) Lipid Panel, Standard (09/28/2023 10:45 AM EDT) Triglycerides 84 <150 mg/dL [facility] Comment:Desirable Triglyceri de: less than 150 mg/dLBorderline High Triglyceride 150-199 mg/dLHigh Triglyceride: 200-499 mg/dLVery High Triglyceride: greater than or equal to 5OO mg/dL Cholesterol 204(H) <200 mg/dL [facility] Comment:Desirable Cholestero l: less than 200 mg/dLBorderline High Cholesterol: 200-239 mg/dLHigh Cholesterol: greater than 239 mg/dL LDL Cholesterol Calculated 116(H) <100 mg/dL [facility] Comment:Desirable LDL: less than 100 mg/dLNear Optimal/Above Optimal LDL: 110- 129 mg/dLBorderline High LDL: 130-159 mg/dLHigh LDL: 160-189 mg/dLVery High LDL: greater than or equal to 190 mg/dL HDL Cholesterol 72 >40 mg/dL [facility] Comment:Desirable HDL: great er than 40 mg/dL Note: This HDL assay may give artificially low results in patients with liver disease. Blood Venous blood specimen / Unknown 09/28/2023 10:45 AM EDT 09/28/2023 11:35 AM EDT us Erik Ortiz MD LAB BLOOD ORDERABLES Final Result [facility] [address] [place] [phone] from Last 3 Months or Most Recently Relevant to Health Maintenance Insurance [employer] (HMO D-SNP) SHYANNE SÁNCHEZ [id number] Care Teams Welding Machine Operator Electro Gas Relationship Specialty Start Date End Date Erik Gibbs MD [address] [place] [phone] PCP - General Internal Medicine 02/18/19
[2024-10-16 14:25] VITALS: BP 124/80; PULSE 58; O2SAT 98; BMI 28.8
== END 2024-10-16 15:02 | disposition home or self-care (01) ==
LOC: HO.RHE 14:15
PROVIDERS: PCP Internal Medicine; Visit Provider Student in an Organized Health Care Education/Training Program
DX: M05.79 Rheumatoid arthritis with rheumatoid factor of multiple sites without organ or systems involvement (principal); M80.00XS Age-related osteoporosis with current pathological fracture, unspecified site, sequela; Z51.81 Encounter for therapeutic drug level monitoring; Z79.69 Long term (current) use of other immunomodulators and immunosuppressants; Z79.620 Long term (current) use of immunosuppressive biologic
CPT/HCPCS: 99214; G2211

== ENCOUNTER → 2024-10-16 14:14 | Outpatient (BNVA) | payer OTHER, SELFPAY | PROVIDERS: PCP Internal Medicine; Visit Provider Student in an Organized Health Care Education/Training Program | DX: Z51.81 Encounter for therapeutic drug level monitoring (principal); M05.9 Rheumatoid arthritis with rheumatoid factor, unspecified; M80.00XD Age-related osteoporosis with current pathological fracture, unspecified site, subsequent encounter for fracture with routine healing; Z79.69 Long term (current) use of other immunomodulators and immunosuppressants; Z79.620 Long term (current) use of immunosuppressive biologic | CPT/HCPCS: 99212 ==

== ENCOUNTER 2024-11-27 10:31 | Outpatient (REF) | payer OTHER, SELFPAY ==
--- OUTSIDE RECORDS SUMMARY | 2024-11-27 11:15 | XMS_ITS | Encounter Summary ---
Author Organization [facility] Address [address] [place] [address] Care Team Providers Care Costume Maker Name Role Phone Erik Motley MD Primary Care Provider [phone] Encounter Details Date Type Department Care Team (Late st Contact Info) Description 07/18/2019 Scanned Document [facility] Rheumatology [address] [phone] Raiza Luis MD Social History Tobacco Use [...] on filedocumented in this encounter Care Teams Costume Maker Relationship Specialty Start Date End Date Erik Motley MD [address] [place] [address] [place] [address] PCP - General 07/18/19 documented as of this encounter
--- OUTSIDE RECORDS SUMMARY | 2024-11-27 11:15 | XMS_ITS | Encounter Summary ---
Author Organization [employer] Address [address] [facility] 7[address] [place] [address] Care Team Providers Care Order Clerk Name Role Phone Erik Gibbs MD Primary Care Provide r Reason for Visit * Reason Onset Date Comments chartprep 11/24/2024 Encounter Details Date Type Department Care Team ([facility] st Contact Info) Description 11/24/2024 Telephone [facility] [address] [place] [address] Erik Gibbs MD [address] [place] [address] chartprep Social History Tobacco Use Types Packs/Day Years Used Date Smoking Tobacco: Never Passive Smoke Exposure: Never Smokeless Tobacco: Never Depression Answer Date Recorded Patient Health Questionnaire-9 Score 0 11/25/2024 Patient Health Questionnaire-9 Score 0 11/25/2024 Last PHQ-9: Questionnaire Data Not on file 0 11/25/2024 Housing Stability Answer Date Recorded What is [...] Date Recorded Patient Health Questionnaire-2 Score 0 11/25/2024 Comments Unknown Sex and Gender Information Value Date Recorded Sex Assigned at Female 03/27/2022 10:23 AM EDT Legal Sex Female 10:23 AM EDT Gender Identity Female 03/27/2022 10:23 AM EDT Sexual Orientation Straight 03/27/2022 10 :23 AM EDT documented as of this encounter Miscellaneous Notes * Telephone Encounter - Mary Jane Ortiz [place] - 11/24/2024 8:41 AM EDT ..Chart Prep Labs: not applicable Images: done BD DEXA Axial Vaccines due: Covid Due Referrals: Not Applicable Screenings: Not Applicable Overdue care gaps: PQ9 and GAD7 documented in this encounter Plan of Treatment Not on file documented as of this encounter Goals Goal Patient Goal Type Associated Problems Recent Progress Patient-Stated? Author Blood Pressure < 150/90 Blood Pressure 130/80( 025 9:03 AM EDT) No Maxwell Davis documented as of this encounter Visit Diagnoses Not on filedocumented in this encounter Additional Health Concerns Assessment Noted Time PHQ-9 Depression Total Score: 1 09/27/19 24 11:43 AM EDT documented as of this encounter Care Teams Order Clerk Relationship Specialty Start Date End Date Erik Gibbs MD [address] [place] [address] PCP - General Internal Medicine 02/18/19 documented as of this encounter
--- OUTSIDE RECORDS SUMMARY | 2024-11-27 11:15 | XMS_ITS | Clinical Summary ---
Author Organization [facility] Address [address] [place] [address] Phone Care Team Providers Care Truss Maker Name Role Phone Erik Farrar MD [facility] Surgical History Surgery Date Site/Laterality Comments [...] hemorrhoids. One diminutive tubular adenoma. CHOLECYSTECTOMY PROCEDURE: SC LAPAROSCOPY SURG CHOLECYSTECTOMY Medical History Medical History [...] Deep venous thrombosis of lo wer extremity ([facility] V24, [facility] V28) 08/11/2015 DX:Deep venous th rombosis of lower extremity (HCC); COMMENT: S/p IVC filter b/l 2001 Osteoarthritis 03/03/2016 DX:Osteoarthriti s; COMMENT: Cervical spine, shoulders, knees Left knee pain 05/02/2017 DX:Left knee dusty n Neck pain 05/02/2017 DX:Neck pain Shoulder pain, right 05/02/2017 DX:Shoulder pain, right Rheumatoid arthritis with rh eumatoid factor ([facility] V24, [facility] V28) 01/25/2017 DX:Rheumatoid arthri tis with rheumatoid factor ([facility]) Rheumatoid arthritis flare ( [facility] V24, [facility] V28) 07/26/2017 DX:Rheumatoid arthritis flar e ([facility]) Pulmonary embolus ([facility] V 24, [facility] V28) 06/18/2014 DX:Pulmonary embolus ([facility]) Popliteal fullness 05/02/2017 DX:Popliteal fullness B12 [...] 2023-2 5 season) 2024 Influenza Vaccine (#1) 2025 DTaP,Tdap,and Td Vaccines (2 - Td [...] age to complete this topic Care Teams Truss Maker Relationship Specialty Start Date End Date Erik Farrar MD [address] [place] [address] [place] [address] PCP - General Internal Medicine 02/19/19
[2024-11-27 13:14] LABS: MANUAL DIFF FLAG NO
[2024-11-27 13:27] LABS: Hematocrit 37.8 % (37.0-47.0); Hemoglobin 11.7 g/dl (12.0-16.0); Imm Gran Abs Auto 0.01 X10*3/uL (0.00-0.03); Imm Gran Pct Auto 0.3 % (0.0-0.4); Lymphocytes Absolute Auto 1.4 X10*3/uL (1.2-4.9); Mean Corpuscular HGB Conc 31.0 g/dl (31.0-35.0); Mean Corpuscular Hemoglobin 25.3 pg (27.0-33.0); Mean Corpuscular Volume 81.8 fL (80.0-98.0); NRBC Abs Auto 0.000 X10*3/uL (0.0-0.012); NRBC Pct Auto 0.0 /100WBC (0.0-0.2); Platelet Count 304 X10*3/uL (160-400); Red Blood Count 4.62 X10*6/uL (4.20-5.50); White Blood Count 3.8 X10*3/uL (4.8-10.8)
[2024-11-27 13:59] LABS: Alanine Aminotransferase 19 U/L (0-31); Albumin Level 4.3 g/dL (3.5-5.0); Alkaline Phosphatase 96 U/L (39-117); Anion Gap 14 (12-20); Aspartate Amino Transferase 38 U/L (5-31); Blood Urea Nitrogen 13 mg/dL (9-16); Calcium 9.5 mg/dL (8.4-10.2); Carbon Dioxide 26 mmol/L (22-29); Chloride 105 mmol/L (96-108); Cholesterol 199 mg/dL (<200); D Dimer High Sensitivity < 150 NG/ML; Estimated Glomerular Filt Rate > 60; HDL Cholesterol 82 mg/dL (>40); Potassium 3.7 mmol/L (3.3-5.1); Sodium 141 mmol/L (135-145); Total Protein 7.7 g/dL (6.5-8.0); Triglycerides 68 mg/dL (<150)
== END 2024-11-27 10:32 | disposition home or self-care (01) ==
LOC: HO.HHCL 10:31
PROVIDERS: Internal Medicine Medical Oncology; PCP Internal Medicine; Visit Provider Internal Medicine
DX: L30.9 Dermatitis, unspecified (principal); I26.99 Other pulmonary embolism without acute cor pulmonale; I10 Essential (primary) hypertension
CPT/HCPCS: 36415; 80053; 80061; 84443; 85025; 85379

== ENCOUNTER 2024-12-15 14:25 | Outpatient (AMB) | payer OTHER, SELFPAY ==
[2024-12-15 14:33] VITALS: BP 112/62; PULSE 80; O2SAT 97; BMI 29.6
--- NOTE | 2024-12-15 14:33 | A.OFFVIS_ITS ---
Vital Signs 12/15/24 14:33 Height 5 ft 3 in Weight 167 lb BMI 29.6 BP 112/62 Blood Pressure Location Lt brachial Position Sitting Pulse 80 Pulse Source Pulse Oximeter Pulse Oximetry (%) 97 Oxygen Delivery Method Room Air Intake Visit Reasons: asthma Allergies BERNADETTE Inhibitors Allergy (Severe, Verified 12/15/24 14:37) Angioedema Iodinated Contrast Media (CONTRAST, IV) Allergy (Intermediate, Verified 12/15/24 14:37) SWELLING, ITCHINESS, RASH Penicillins (PENICILLINS) Allergy (Intermediate, Verified 12/15/24 14:37) ITCHINESS, RASH, SWELLING latex Allergy (Verified 12/15/24 14:37) Hives Sulfa (Sulfonamide Antibiotics) Allergy (Verified 12/15/24 14:37) Unknown zoledronic acid (From Reclast) Adverse Reaction (Verified 12/15/24 14:37) Joint Pain HPI HPI asthma: Details: 79-year-old lady, nonsmoker, followed for underlying mild asthma. Her symptoms well controlled on as needed albuterol MDI. She also was started on Zyrtec for underlying intermittent environmental allergies with reasonable control of her symptoms.. She denies recent exacerbations. She completed her immunologic wo rkup showing mild eosinophilia, however negative RAST panel. 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 up operator leflunomide therapy Encounter for monitoring leflunomide therapy Right ankle swelling Long-term use of immunosuppressant medication Dry skin dermatitis Leg edema Surgical History History of cholecystectomy History of appendectomy History of total abdominal hysterectomy and bilateral salpingo-oophorectomy History of bariatric surgery History of colonoscopy Family History Father Asthma Mother Rheumatoid arthritis Cardiovascular disease Social History Household Members: Family Housing: House Are you a primary health care facility administrator to a significant other at home: No Do you presently have visiting nurse or other home services: Yes (PT 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 a BIG DATA ENGINEER) Alcohol intake: never Patient Tobacco Use Status: Never used Tobacco Advance Directives Date on File: 02/06/24 service: No Current occupational status: disabled Review of Systems Const Denies daytime sleepiness, Denies excessive sweating, Denies fatigue, Denies fever(s), Denies lethargy, Denies malaise, Denies night sweats, Denies snoring and Denies weight loss Eyes Denies blurry vision and Denies itchy eyes ENT Denies nasal congestion, Denies post nasal drip, Denies sinus pain, Denies sinus pressure and Denies other ( Thrush) Card Denies chest pain, Denies pedal edema, Denies dyspnea, Denies orthopnea and Denies paroxysmal nocturnal dyspnea Resp Denies cough, Denies hemoptysis, Denies excessive phlegm production, Denies dyspnea, Denies snoring and Denies wheezing GI Denies abdominal pain and Denies heartburn Musc Denies myalgias, Denies arthralgias and Denies joint swelling Skin/Breast Denies rash Neuro Denies memory loss and Denies seizure-like activity Psych Denies abnormal sleep pattern, Denies anxiety and Denies memory loss Endo Denies excessive sweating, Denies fatigue and Denies heat intolerance Manuel/Lymph Denies easy bruising Aller/Immun Denies itchy eyes, Denies seasonal rhinorrhea and Denies wheezing Physical Exam Vital Signs: Last Vital Signs Pulse 80 12/15/24 14:33 BP 112/62 12/15/24 14:33 Pulse Ox 97 12/15/24 14:33 Oxygen Delivery Method Room Air 12/15/24 14:33 BMI result Body Mass Index 29.6 Const General: no acute distress and alert Nutritional Appearance: not obese Orientation/consciousness: Other orientation findings ( oriented) HEENT Head: Yes atraumatic Eyes General: appearance normal, both eyes and all related structures Sclerae: sclerae normal EOM: EOMs intact bilaterally Neck Neck: Yes supple Lymphatic: no lymphadenopathy noted Resp Effort & Inspection: normal respiratory effort and no use of accessory muscles Auscultation: clear to auscultation bilaterally Cardio Rate: regular rate Rhythm: regular rhythm Heart sounds: no gallops, no murmurs and no rubs Skin General skin exam: other ( warm) Extrem General: No clubbing, No cyanosis and No edema Assessment & Plan Assessment & Plan (1) Asthma: Code(s): J45.909 - Unspecified asthma, uncomplicated Category: Medical Plan: Well controlled on as needed albuterol MDI. Continue current regimen. (2) Environmental allergies: Code(s): Z91.09 - Other allergy status, other than to drugs and biological substances Category: Medical Plan: Well controlled on as needed Zyrtec. Continue current regimen. Coding Level of Care Code Est Pt Level 4 (95047) Diagnoses Asthma J45.909 Environmental allergies Z91.09
--- OUTSIDE RECORDS SUMMARY | 2024-12-15 15:16 | XMS_ITS | Encounter Summary ---
Author Organization [facility] Address [address] [place] [address] Care Team Providers Care Church Administrator Name Role Phone Erik Motley MD Primary Care Provider [phone]- [phone] Encounter Details Date Type Department Care Team (Late st Contact Info) Description 07/18/2019 Scanned Document [facility] Rheumatology [address] [phone] Raiza Luis MD Social History Tobacco Use [...] on filedocumented in this encounter Care Teams Church Administrator Relationship Specialty Start Date End Date Erik Motley MD [address] [place] [address] [place] [address] PCP - General 07/18/19 documented as of this encounter
--- OUTSIDE RECORDS SUMMARY | 2024-12-15 15:16 | XMS_ITS | Clinical Summary ---
Author Organization [facility] Address [address] [place] [address] Phone Care Team Providers Care Commercial Loan Analyst Name Role Phone Erik Farrar MD [facility] Surgical History Surgery Date Site/Laterality Comments [...] hemorrhoids. One diminutive tubular adenoma. CHOLECYSTECTOMY PROCEDURE: CT LAPAROSCOPY SURG CHOLECYSTECTOMY Medical History Medical History [...] Deep venous thrombosis of lo wer extremity ([facility]24, [facility] V28) 08/11/2015 DX:Deep venous th rombosis of lower extremity (HCC); COMMENT: S/p IVC filter b/l 2001 Osteoarthritis 03/03/2016 DX:Osteoarthriti s; COMMENT: Cervical spine, shoulders, knees Left knee pain 05/02/2017 DX:Left knee dusty n Neck pain 05/02/2017 DX:Neck pain Shoulder pain, right 05/02/2017 DX:Shoulder pain, right Rheumatoid arthritis with rh eumatoid factor ([facility] V24, [facility] V28) 01/25/2017 DX:Rheumatoid arthri tis with rheumatoid factor ([facility]) Rheumatoid arthritis flare ( [facility] V24, [facility] V28) 07/26/2017 DX:Rheumatoid arthritis flar e ([facility]) Pulmonary embolus ([facility] V 24, [facility] V28) 06/18/2014 DX:Pulmonary embolus ([facility]) Popliteal fullness 05/02/2017 DX:Popliteal fullness B12 [...] Panel) 05/06/2022 Colorectal Cancer Screening: Colonoscopy 05/06/2022 Falls Risk Assessment 05/06/2022 Hepatitis C Screening 05/06/2022 Osteoporosis Screening (Bone Density Screening) 05/06/2022 Social Influencers of Health Screening 05/06/2022 Hypertension/CHF/CAD Annual BMP Blood Test 05/12/2022 COVID-19 Vaccine (1 - 2023-2 5 season) 2024 Depression Screening 05/28/2024 Influenza Vaccine (#1) 2025 DTaP,Tdap,and Td Vaccines [...] age to complete this topic Care Teams Commercial Loan Analyst Relationship Specialty Start Date End Date Erik Farrar MD [address] [place] [address] [place] [address] PCP - General Internal Medicine 02/19/19
--- OUTSIDE RECORDS SUMMARY | 2024-12-15 15:16 | XMS_ITS | Clinical Summary ---
Author Organization [employer] Address [address] [place] [address] [address] [place] [address] Care Team Providers Care Salvage Inspector Name Role Phone Erik Gibbs MD Primary [...] the skin every 6 (six) months. Active Eliquis 5 MG tablet Take 5 [...] EVERY MORNING 90 tablet 1 5 Active atorvastatin (Lipitor) 20 MG tabletIndications: Mixed hyperlipidemia TAKE 1 TABLET BY MOUTH AT BEDTIME 30 tablet 11 5 Active cetirizine (ZyrTEC) 5 MG tabletIndications: Dermatitis Take 1 tablet (5 mg) by mouth Once per day. 30 tablet 3 5 Active Active Problems Problem Noted Date Diagnosed Date Dermatitis 11/25/2024 Assessment & Plan (11/25/2024 9:29 AM EDT): Patient with multiple tiny round lesions on her forearms and the back of her neck Etiology ? Drug reaction ? Plan: CMP, TSH Cetirizine daily. Pt already on Prednisone Dermatology appointment Peripheral polyneuropathy 11/25/2024 Assessment & Plan (11/25/2024 9:42 AM EDT): Pt had NCS 09/24/2024 ordered by her Electrical Maintenance Mechanic that showed sensorimotor bilateral peripheral neuropathy, axonal features. This could likely be a result of her RA Preventative health care 03/18/2024 Assessment & Plan (11/25/2024 9:08 AM EDT): Mammogram: 05/05/2024 Normal Pap Smear: s/p NIDA and BSO 1993 for fibroids Colonoscopy: 11/14/2017 SHOWED Tubular Adenoma 5 yr f/u recommended. Had colonoscopy at [facility] 03/25/2024: It showed diverticulosis and internal hemorrhoids GI recommended NO further colonoscopies Dexa scan 09/24/2024: Osteoporosis Assessment & Plan (03/18/2024 2:59 PM EDT): [...] incontinence of urine 10/30/2023 Assessment & Plan (11/25/2024 9:16 AM EDT): Under the care of Urology Last seen 07/24/2024 Needs incontinence supplies Assessment & Plan (02/14/2024 9:31 AM EDT): Referred to Urology Has Urology Appt on 03/20/2024 @11AM Needs incontinence supplies Assessment & Plan (10/30/2023 3:16 PM EDT): Will refer to Urology Needs incontinence supplies Palpitations 10/30/2023 Assessment & Plan (11/25/2024 9:14 AM EDT): Intermittent Referred to cardiology referral for Holter Seen on 03/05/2024. They recommended a Pharmacological stress test and a Holter Monitor Had Echocardiogram on 04/18/2024 which showed EF 60-65%, [id number] tricuspid regurgitation, no pericardial effusion. Nuclear stress test on 06/13/2023 was normal. Holter monitor was done on 04/18/2024 for 6 days showing sinus rhythm with average heart rate 77 beats per minute, rare ectopy, as VT bursts, longest 13 beats. consistent with brief NSVT. She is on metoprolol. Cardiology follow-up 6 months recommended Assessment & Plan (03/18/2024 2:53 PM EDT): [...] current pathological fracture 05/31/2023 Assessment & Plan (11/25/2024 9:33 AM EDT): Most recent DEXA 09/24/2024 IMPRESSION: Based on bone mineral density, and according to World Health Organization (WHO) criteria, the diagnosis is consistent with osteoporosis. Evaluated by Rheumatology who reviewed her MRI of lumbar spine June 2021 showed moderate benign appearing compression fracture deformities along the superior endplates of the T11 and T12. She was prescribed Reclast pt apparently had a severe reaction to it, she was prescribed Alendronate but also did not tolerate She is back on Prolia with no issues Assessment & Plan (10/30/2023 3:03 PM EDT): [...] PRN Essential hypertension 06/07/2022 Assessment & Plan (11/25/2024 9:19 AM EDT): Pt is here for a f/u currently controlled on a regimen of: Metoprolol XR 50 mg po daily and hctz 25 mg po daily. Enalapril was discontinued due to angioedema. Most recent electrolytes, Bun and Creatinine Lab Results Component Value Date NA 142 02/28/2024 NA 143 01/24/2024 K 4.3 02/28/2024 K 4.3 01/24/2024 CL 107 02/28/2024 CL 107 01/24/2024 BUN 13 02/28/2024 BUN 17 (H) 01/24/2024 CREATININE 0.85 02/28/2024 CREATININE 0.96 01/24/2024 were wnl , will repeat Plan: Continue current regimen patient advised to adhere to a low sodium diet, encouraged about medication compliance, counseled about weight loss. f/u 4 months Assessment & Plan (02/14/2024 9:17 AM EDT): [...] Mild intermittent asthma 06/07/2022 Assessment & Plan (11/25/2024 9:09 AM EDT): Pt uses Pro-Air on a prn basis maybe once or twice a month, pt reports wheezing intermittently. Seen by Dr. Aviles Scheduling Administrator 05/18/2024 he mentioned she did not tolerate Breo Elipta. Assessment & Plan (03/18/2024 2:55 PM EDT): Pt uses Pro-Air on a prn basis maybe once or twice a month, pt reports wheezing intermittently. Seen by Dr. Aviles Scheduling Administrator 03/14/2024 he added Nikolai mott recommended full [...] under the care of a psychotherapist Symone Acre at [facility] [phone] Javi Oshea On Duloxetine 20 mg capsule daily and temazepam 15 mg po qhs Rheumatoid arthritis 06/07/2022 Assessment & Plan (11/25/2024 9:18 AM EDT): Pt is here for a f/u She has RA diagnosed in 2000 She is followed at [facility] Rheumatology. Previously she was under the care of Raiza stauffer tel: [phone] In the past she was on Humira [...] WBCs. She was last seen by Rheumatology 10/16/2024. She is on: Leflunomide 20 mg po daily Prednisone 5 mg daily prn (disp 30 tabs) Continue follow up with Rheum Assessment & Plan (03/18/2024 2:56 PM EDT): Pt is here for a f/u She has RA diagnosed in 2000 She is followed at [facility] Rheumatology. Previously she was under the care of Raiza stauffer tel: [phone] In the past she was on Humira [...] under the care of Raiza stauffer tel: [phone] In the past she was on Humira [...] under the care of Raiza stauffer tel: [phone] In the past she was on Humira [...] under the care of Raiza stauffer tel: [phone] In the past she was on Humira [...] a month once the ankle is resolved. Electrical Maintenance Mechanic to consider to try another medication for [...] under the care of Raiza stauffer tel: [phone] In the past she was on Humira [...] under the care of Raiza stauffer tel: [phone] In the past she was on Humira and Prednisone with no good results. She was on Methotrexate, Kevsara nd Folic aci, but her Electrical Maintenance Mechanic recently held them due to a low WBC count of 3.2 she is getting weekly CBCs Assessment & Plan (06/08/2022 10:21 AM EST): Pt is here for a f/u She has RA diagnosed in 2000 She is followed at [facility] Rheumatology, last note 03/14/2022 Previously she was under the care of Raiza stauffer tel: [phone] In the past she was on Humira and Prednisone with no good results. She was on Methotrexate, Kevsara nd Folic aci, but her Electrical Maintenance Mechanic recently held them due to a low WBC count of 3.2 she is getting weekly CBCs Tubular adenoma of colon 06/07/2022 Assessment & Plan (11/25/2024 9:07 AM EDT): Colonoscopy: 11/14/2017 showed Tubular Adenoma 5 yr f/u recommended Pt referred to Dr. Baldwin, seen 03/12/2024 Had colonoscopy at [facility] 03/25/2024: It showed diverticulosis and internal hemorrhoids GI recommended NO further colonoscopies Assessment & Plan (03/18/2024 3:53 PM EDT): Colonoscopy: 11/14/2017 showed Tubular Adenoma 5 yr f/u recommended Pt referred to Dr. Baldwin, seen 03/12/2024 scheduled for colonoscopy at [facility] 03/25/2024 Assessment & Plan (06/08/2022 8:25 AM EST): Colonoscopy: 11/14/2017 showed Tubular Adenoma 5 yr f/u recommended Encounters Date Type Department Care Team Description 11/27/2024 Orders Only GENERIC EXTERNAL DATA DEPARTMENT Provider, Generic External Data 11/25/2024 9:00 AM EDT Office Visit [address] [address] Erik Gibbs MD Dermatitis (Primary Dx); Age-related osteoporosis without current pathological fracture; Stress incontinence of urine; Tubular adenoma of colon; Preventative health care; Mild intermittent asthma without complication; Palpitations; Rheumatoid arthritis involving multiple sites with positive rheumatoid factor ([facility]); Essential hypertension; Peripheral polyneuropathy 11/25/2024 Travel 11/24/2024 Telephone [facility] [address] [place], [place] [phone] Erik Gibbs MD chartprep 10/16/2024 Refill [facility] [address] [place], [place] [phone] Erik Gibbs MD Mixed hyperlipidemia 09/24/2024 Orders Only [facility] External Provider, [facility] from Last 3 Months Immunizations Immunization Administration [...] Tobacco: Never Tobacco Cessation:Counseling Given: Not Answered Depression Answer Date Recorded Patient Health Questionnaire-9 [...] the past 12 months, has t he St[employer], gas, oil or water company threatened to [...] Sign Reading Time Taken Comments Blood Pressure 130/80 11/25/2024 9:03 AM EDT Pulse 70 11/25/2024 9:03 AM EDT Temperature 36.2 C (97.1 F) 11/25/2024 9:03 AM EDT Respiratory Rate 20 11/25/2024 9:03 AM EDT Oxygen Saturation 98% 11/25/2024 9:03 AM EDT Inhaled Oxygen Concentration - - Weight 75.6 kg (166 lb 9.6 oz) 11/25/2024 9:03 A M EDT Height 160 cm (5' 3 ) 11/25/2024 9:03 AM EDT Body Mass Index 29.51 11/25/2024 9:03 AM EDT Plan of Treatment Health Maintenance Due Date Last Done Comments COVID-19 Vaccine ( season) 2024 03/18/2024, 03/23/2022, 05/13/2021, Additional history exists SDOH Screening 09/26/2024 09/27/2023 Influenza Vaccine (#1) 2025 , 02/21/2022, 03/03/2021, Additional history exists Alcohol/Substance Use Screening 03/18/2025 03/18/2024 Depression Screening 11/25/2025 11/25/2024, 11/26/19 Tobacco Screening 11/25/2025 11/25/2024 DTaP/Tdap/Td Vaccines (3 - Td or Tdap) 03/26/2029 03/26/2019, 05/02/2016 Lipid Panel 11/27/2029 11/27/2024, 0507/2023, 01/16/2023, Additional history exists Hepatitis B Vaccines Completed 07/17/2019, 03/07/2017, 02/07/2017 RSV Patients and Patients Aged 60 years or older Completed 06/28/2023 Pneumococcal Vaccine: 50+ Years Completed 09/14/2023, 05/26/2021 Zoster Vaccines Completed 09/14/2023, 05/2023, 05/02/2016 Hepatitis C Screening Completed 02/27/2024 , 07/10/2022, [...] 025 9:03 AM EDT) No Maxwell Davis Procedures Procedure Name Priority Date/Time Associated Diagnosis Comments D DIMER HIGH SENSITIVITY Routine 11/27/2024 10:38 AM EDT CBC WITH AUTO DIFFERENTIAL Routine 11/27/2024 10:38 AM EDT TSH W/REFLEX TO FT4 Routine 11/27/2024 1 0:38 AM EDT Dermatitis COMPREHENSIVE METABOLIC PANEL Routine 11/27/2024 10:38 AM EDT Essential hypertension LIPID PANEL, STANDARD Routine 11/27/2024 10:38 AM EDT Essential hypertension BD DEXA AXIAL Routine 09/24/2024 10:15 AM EDT HM COLONOSCOPY Routine 03/25/2024 HEPATITIS PANEL, GENERAL Routine 02/27/2024 2:38 PM EDT from Last 3 Months or Most Recently Relevant to Health Maintenance Results * D Dimer High Sensitivity (11/27/2024 10:38 AM EDT) Pathologist [facility] D Dimer High Sensitivity <150 NG/ML [facility] Comment:D-DIMER HS REFERENCE RANGENote: Our assay reports D-Dimer Units (D- DU).The cut-off value for venous thromboembolic (VTE) disease is230 ng/mL. This value has a very high negative predictivevalue when the patient has a low to moderate clinicalprobability of VTE.The upper limit of normal is 243 ng/mL. 11/27/2024 10:3 8 AM EDT 11/27/2024 1:09 PM EDT us Generic External Data Provider LAB BLOOD ORDERAB LES Final Result [facility] [address] [place] [phone] * TSH with Reflex to Free T4 (11/27/2024 10:38 AM EDT) Pathologist [facility] TSH reflex Free T4 1.25 0.32 - 4.0 uIU/mL [facility] Blood Venous blood specimen / Unknown 11/27/2024 10:38 AM EDT 11/27/2024 1:09 PM EDT Erik Ortiz MD LAB BLOOD ORDERABLES Final Result [facility] [address] [place] [address] [phone] * (ABNORMAL) CBC auto differential (11/27/2024 10:38 AM EDT) White Blood Count 3.8(L) 4.8 - 10.8 X10*3/uL [facility] Red Blood Count 4.62 4.20 - 5.50 X10*6/uL [facility] Hemoglobin 11.7(L) 12.0 - 16.0 g/dl [facility] Hematocrit 37.8 37.0 - 47.0 % [facility] Mean Corpuscular Volume 81.8 80.0 - 98.0 fL [facility] Mean Corpuscular Hemoglobin 25.3(L) 27.0 - 33.0 pg [facility] Mean Corpuscular HGB Conc 31.0 31.0 - 35.0 g/dl [facility] Red Cell Distribution Width 16.3(H) 11.0 - 16.0 % [facility] Platelet Count 304 160 - 400 X10*3/uL [facility] Mean Platelet Volume 11.4 9.4 - 12.3 fL [facility] Neutrophils Percent Auto 42.0(L) 45 - 73 % [facility] Imm Gran Pct Auto 0.3 0.0 - 0.4 % [facility] Lymphocytes Percent Auto 37.0 20 - 40 % [facility] Monocytes Percent Auto 12.1(H) 2 - 11 % [facility] Eosinophils Percent Auto 7.6(H) 0 - 4 % [facility] Basophils Percent Auto 1.0 0 - 2 % [facility] NRBC Pct Auto 0.0 0.0 - 0.2 /100WBC [facility] Neutrophils Absolute Auto 1.6(L) 2.0 - 8.3 x10*3/uL [facility] Imm Gran Abs Auto 0.01 0.00 - 0.03 X10*3/uL [facility] Lymphocytes Absolute Auto 1.4 1.2 - 4.9 X10*3/uL [facility] Monocytes Absolute Auto 0.5 0.1 - 1.2 X10*3/uL [facility] Eosinophils Absolute Auto 0.3 0.0 - 0.4 X10*3/uL [facility] Basophils Absolute Auto 0.0 0.0 - 0.2 X10*3/uL [facility] NRBC Abs Auto 0.000 0.0 - 0.012 X10*3/uL [facility] 11/27/2024 10:3 8 AM EDT 11/27/2024 1:09 PM EDT us Generic External Data Provider LAB BLOOD ORDERAB LES Final Result [facility] [address], [place] [phone] * (ABNORMAL) Lipid Panel, Standard (11/27/2024 10:38 AM EDT) Triglycerides 68 <150 mg/dL [facility] Comment:Desirable Triglyceri de: less than 150 mg/dLBorderline High Triglyceride 150-199 mg/dLHigh Triglyceride: 200-499 mg/dLVery High Triglyceride: greater than or equal to 5OO mg/dL Cholesterol 199 <200 mg/dL [facility] Comment:Desirable Cholestero l: less than 200 mg/dLBorderline High Cholesterol: 200-239 mg/dLHigh Cholesterol: greater than 239 mg/dL LDL Cholesterol Calculated 104(H) <100 mg/dL [facility] Comment:Desirable LDL: less than 100 mg/dLNear Optimal/Above Optimal LDL: 110- 129 mg/dLBorderline High LDL: 130-159 mg/dLHigh LDL: 160-189 mg/dLVery High LDL: greater than or equal to 190 mg/dL HDL Cholesterol 82 >40 mg/dL [facility] Comment:Desirable HDL: great er than 40 mg/dL Note: This HDL assay may give artificially low results in patients with liver disease. Blood Venous blood specimen / Unknown 11/27/2024 10:38 AM EDT 11/27/2024 1:09 PM EDT us Erik Ortiz MD LAB BLOOD ORDERABLES Final Result [facility] [address] [place] [phone] [phone] * (ABNORMAL) Comprehensive Metabolic Panel (11/27/2024 10:38 AM EDT) Sodium 141 135 - 145 mmol/L [facility] Potassium 3.7 3.3 - 5.1 mmol/L [facility] Chloride 105 96 - 108 mmol/L [facility] Carbon Dioxide 26 22 - 29 mmol/L [facility] Anion Gap 14 12 - 20 [facility] Urea Nitrogen (BUN) 13 9 - 16 mg/dL [facility] Creatinine, Serum 0.77 0.5 - 1.4 mg/dL [facility] Estimated Glomerular Filt Rate >60 [facility] Comment:Chronic Kidney Disea se: Estimated GFR < 60 mL/min/1.24w7Ipgogb Kidney Disease: Estimated GFR < 15 mL/min/1.73m2 Glucose 73 60 - 115 mg/dL [facility] Calcium 9.5 8.4 - 10.2 mg/dL [facility] Bilirubin, Total 0.5 0.0 - 1.0 mg/dL [facility] Aspartate Amino Transferase 38(H) 5 - 31 U/L [facility] Alanine Aminotransferase 19 0 - 31 U/L [facility] Total Protein 7.7 6.5 - 8.0 g/dL [facility] Albumin Level 4.3 3.5 - 5.0 g/dL [facility] Alkaline Phosphatase 96 39 - 117 U/L [facility] Blood Venous blood specimen / Unknown 11/27/2024 10:38 AM EDT 11/27/2024 1:09 PM EDT us Erik Ortiz MD LAB BLOOD ORDERABLES Final Result [facility] [address] [facility] [place] [address] [phone] * BD DEXA Axial (09/24/2024 10:15 AM EDT) Anatomical Region Laterality Modality Body Radiographic Deyanira ging 09/24/2024 10:1 5 AM EDT Narrative 09/24/2024 10:43 AM EDT [address] [place] [address] Mammography Report Signed Patient: Vicky Craft MR#: [id number] 55 : 1945 Acct:[id number] Age/Sex: 79 / F ADM Date: 09/24/24 Loc: HO.MAMMO Attending Dr: Lisy Hooker MD Ordering Physician: Lisy Hooker MD Results: Date of Service: 09/24/24 Follow Up: Procedure(s): XR DEXA axial skeleton Accession Number(s): [id number] cc: Lisy Hooker MD; Erik Farrar MD EXAMINATION: DXA BONE DENSITY AXIAL HISTORY: M80.00XS - Age-related osteoporosis with current pathological fracture, ... TECHNIQUE: CrowdHall Dual energy absorptiometry (DEXA) of the lumbar [...] is a trademark of the [employer]'s [place] [facility] Metabolic Bone Disease, a World Health Organization (WHO) Collaborating Center. Electronically signed by: Christopher Valdivia MD 09/24/2024 10:39 AM EDT Dictated By: Christopher Valdivia MD Signed By: <Electronically signed by Christopher Valdivia MD in OV> 09/24/24 1039 DD/ 1015 TD/TT: 09/24/24 1030 Oil Processing Technician: Procedure Note Donotuseinterpreter, Image - 09/24/2024 [facility] [address] [place] [address] Mammography Report Signed Patient: Vicky CraftMR#: [id number] 55 : 5Acct:[id number] Age/Sex: 79 / FADM Date: 09/24/24 Loc: [facility]ANO Attending Dr: Lisy Hooker MD Ordering Physician: Lisy Hooker MDResults: Date of Service: 09/24/24Follow Up: Procedure(s): XR DEXA axial skeleton Accession Number(s): [id number] cc: Lisy Hooker MD; Erik Farrar MD EXAMINATION: DXA BONE DENSITY AXIAL HISTORY: M80.00XS - Age-related osteoporosis with current pathological fracture, ... TECHNIQUE: [employer]dHall Dual energy absorptiometry (DEXA) of the lumbar [...] of the [employer] [employer], a World Health Organization (WHO) Collaborating Center. Electronically signed by: Christopher Valdivia MD 09/24/2024 10:39 AM EDT RP Dictated By: Christopher Valdivia MD Signed By: <Electronically signed by Christopher Valdivia MD in OV> 09/24/24 1039 DD/ 1015 TD/TT: 09/24/24 1030 Oil Processing Technician: [facility] External Provider IMG DXA PROCEDURES Edited Result - Final * (ABNORMAL) Hm Colonoscopy (03/25/2024) Colonoscopy Abnormal(A ) Normal 03/25/2024 Erik Ortiz MD HEALTH MAINTENANCE Fi nal Result * Hepatitis Panel, General (02/27/2024 2:38 PM EDT) Hepatitis A IgM Nonreactive Nonreactive [facility] Comment:IgM antibodies to BARRETO V not detected; does not exclude earlyacute or recovered HAV infection. ~Hepatitis B Surface Antibody NONREACTIVE Nonreactive [facility] Comment:Nonreactive: < 8.00 mIU/mL Hepatitis B Core Antibody Nonreactive Nonreactive [facility] Hepatitis C Antibody Nonreactive Nonreactive [facility] Comment:Antibodies to HCV no t detected; does not exclude early acuteHCV infection. Hepatitis B Surface Ag Negative Negative [facility] 02/27/2024 2:38 PM EDT 02/27/2024 2:38 PM EDT Generic External Data Provider LAB BLOOD ORDERAB LES Final Result [facility] [address] [place] [phone] from Last 3 Months or Most Recently Relevant to Health Maintenance Insurance [facility] [employer] OPT[employer] (HMO D-SNP) SHYANNE SÁNCHEZ [id number] Care Teams Salvage Inspector Relationship Specialty Start Date End Date Erik Gibbs MD [address] [place] [id number] PCP - General Internal Medicine 02/18/19
== END 2024-12-15 16:05 | disposition home or self-care (01) ==
LOC: HO.HPS 14:25
PROVIDERS: PCP Internal Medicine; Visit Provider Internal Medicine Pulmonary Disease
DX: J45.909 Unspecified asthma, uncomplicated (principal); Z91.09 Other allergy status, other than to drugs and biological substances
CPT/HCPCS: 99214

== ENCOUNTER → 2024-12-15 14:25 | Outpatient (BNVA) | payer OTHER, SELFPAY | PROVIDERS: PCP Internal Medicine; Visit Provider Internal Medicine Pulmonary Disease | DX: J45.909 Unspecified asthma, uncomplicated (principal); Z91.09 Other allergy status, other than to drugs and biological substances; D72.10 Eosinophilia, unspecified | CPT/HCPCS: 99212 ==

== ENCOUNTER 2024-12-18 14:27 | Outpatient (AMB) | payer OTHER, SELFPAY ==
--- OUTSIDE RECORDS SUMMARY | 2024-12-18 14:35 | XMS_ITS | Clinical Summary ---
Author Organization [facility] Address [address] [place] [address] Phone Care Team Providers Care Epitaxial Reactor Technician Name Role Phone Erik Farrar MD [facility] Surgical History Surgery Date Site/Laterality Comments [...] hemorrhoids. One diminutive tubular adenoma. CHOLECYSTECTOMY PROCEDURE: NE LAPAROSCOPY SURG CHOLECYSTECTOMY Medical History Medical History [...] Deep venous thrombosis of lo wer extremity ([facility] V24, [facility] V28) 08/11/2015 DX:Deep venous th rombosis of lower extremity (HCC); COMMENT: S/p IVC filter b/l 2001 Osteoarthritis 03/03/2016 DX:Osteoarthriti s; COMMENT: Cervical spine, shoulders, knees Left knee pain 05/02/2017 DX:Left knee dusty n Neck pain 05/02/2017 DX:Neck pain Shoulder pain, right 05/02/2017 DX:Shoulder pain, right Rheumatoid arthritis with rh eumatoid factor ([facility] V24, [facility] V28) 01/25/2017 DX:Rheumatoid arthri tis with rheumatoid factor ([facility]) Rheumatoid arthritis flare ( [facility] V24, [facility] V28) 07/26/2017 DX:Rheumatoid arthritis flar e ([facility]) Pulmonary embolus ([facility] V 24, [facility] V28) 06/18/2014 DX:Pulmonary embolus ([facility]) Popliteal fullness 05/02/2017 DX:Popliteal fullness B12 [...] age to complete this topic Care Teams Epitaxial Reactor Technician Relationship Specialty Start Date End Date Erik Farrar MD [address] [place] [address] [place] [phone] PCP - General Internal Medicine 02/19/19
--- OUTSIDE RECORDS SUMMARY | 2024-12-18 14:35 | XMS_ITS | Encounter Summary ---
Author Organization [facility] Address [address] [place] [address] Care Team Providers Care Lpn Medical Assistant Name Role Phone Erik Motley MD Primary Care Provider [phone] Encounter Details Date Type Department Care Team (Late st Contact Info) Description 07/18/2019 Scanned Document [facility] Rheumatology [address] [phone] Raiza Luis MD Social History Tobacco Use [...] on filedocumented in this encounter Care Teams Lpn Medical Assistant Relationship Specialty Start Date End Date Erik Motley MD [address] [place] [address] [place] [address] PCP - General 07/18/19 documented as of this encounter
--- OUTSIDE RECORDS SUMMARY | 2024-12-18 14:35 | XMS_ITS | Clinical Summary ---
Author Organization [employer] Address [address] [place] [address] [address] [place] [address] Care Team Providers Care Scaffolder Name Role Phone Erik Gibbs MD Primary [...] Pt had NCS 09/24/2024 ordered by her Apiculturist that showed sensorimotor bilateral peripheral neuropathy, axonal features. This could likely be a result of her RA Preventative health care 03/18/2024 Assessment & Plan (11/25/2024 9:08 AM EDT): Mammogram: 05/05/2024 Normal Pap Smear: s/p NIDA and BSO 1993 for fibroids Colonoscopy: 11/14/2017 SHOWED Tubular Adenoma 5 yr f/u recommended. Had colonoscopy at [facility] 03/25/2024: It showed diverticulosis and internal [...] Patient here for a HDF Admitted to [facility] from 02/05-02/07/2024 where she presented for evaluation [...] Echocardiogram on 04/18/2024 which showed EF 60-65%, [id number] tricuspid regurgitation, no pericardial effusion. Nuclear stress [...] their notes She is being followed at [facility] Coumadin clinic Assessment & Plan (06/08/2022 8:25 [...] last 06/09/2021 She is being followed at [facility] Coumadin clinic Cobalamin deficiency 06/07/2022 Constipation 06/07/2022 [...] reports wheezing intermittently. Seen by Dr. Aviles Tube Lancer 05/18/2024 he mentioned she did not tolerate Breo Elipta. Assessment & Plan (03/18/2024 2:55 PM EDT): Pt uses Pro-Air on a prn basis maybe once or twice a month, pt reports wheezing intermittently. Seen by Dr. Aviles Tube Lancer 03/14/2024 he added Nikolai mott recommended full [...] care of a psychotherapist Symone Arce at [facility] [phone] Javi Oshea On Duloxetine 20 mg capsule daily and temazepam 15 mg po qhs Rheumatoid arthritis 06/07/2022 Assessment & Plan (11/25/2024 9:18 AM EDT): Pt is here for a f/u She has RA diagnosed in 2000 She is followed at [facility] Rheumatology. Previously she was under the care of Raiza stauffer tel: [phone] In the past she was on Humira [...] diagnosed in 2000 She is followed at [facility] Rheumatology. Previously she was under the care of Raiza stauffer tel: [phone] In the past she was on Humira [...] diagnosed in 2000 She is followed at [facility] Rheumatology, last note 11/27/2022 Previously she was under the care of Raiza stauffer tel: [phone] In the past she was on Humira [...] diagnosed in 2000 She is followed at [facility] Rheumatology, last note 11/27/2022 Previously she was under the care of Raiza stauffer tel: [phone] In the past she was on Humira [...] diagnosed in 2000 She is followed at [facility] Rheumatology, last note 11/27/2022 Previously she was under the care of Raiza stauffer tel: [phone] In the past she was on Humira [...] a month once the ankle is resolved. Apiculturist to consider to try another medication for her RA if she has swelling and pain in her hands again. Follow-up with Rheumatology Assessment & Plan (01/16/2023 12:46 PM EDT): Pt is here for a f/u She has RA diagnosed in 2000 She is followed at [facility] Rheumatology, last note 11/27/2022 Previously she was under the care of Raiza stauffer tel: [phone] In the past she was on Humira [...] diagnosed in 2000 She is followed at [facility] Rheumatology, last note 03/14/2022 Previously she was under the care of Raiza stauffer tel: [phone] In the past she was on Humira and Prednisone with no good results. She was on Methotrexate, Kevsara nd Folic aci, but her Apiculturist recently held them due to a low WBC count of 3.2 she is getting weekly CBCs Assessment & Plan (06/08/2022 10:21 AM EST): Pt is here for a f/u She has RA diagnosed in 2000 She is followed at [facility] Rheumatology, last note 03/14/2022 Previously she was under the care of Raiza stauffer tel: [phone] In the past she was on Humira and Prednisone with no good results. She was on Methotrexate, Kevsara nd Folic aci, but her Apiculturist recently held them due to a low WBC count of 3.2 she is getting weekly CBCs Tubular adenoma of colon 06/07/2022 Assessment & Plan (11/25/2024 9:07 AM EDT): Colonoscopy: 11/14/2017 showed Tubular Adenoma 5 yr f/u recommended Pt referred to Dr. Baldwin, seen 03/12/2024 Had colonoscopy at [facility] 03/25/2024: It showed diverticulosis and internal hemorrhoids GI recommended NO further colonoscopies Assessment & Plan (03/18/2024 3:53 PM EDT): Colonoscopy: 11/14/2017 showed Tubular Adenoma 5 yr f/u recommended Pt referred to Dr. Baldwin, seen 03/12/2024 scheduled for colonoscopy at [facility] 03/25/2024 Assessment & Plan (06/08/2022 8:25 AM EST): Colonoscopy: 11/14/2017 showed Tubular Adenoma 5 yr f/u recommended Encounters Date Type Department Care Team Description 11/27/2024 Orders Only GENERIC EXTERNAL DATA DEPARTMENT Provider, Generic External Data 11/25/2024 9:00 AM EDT Office Visit [address] [phone] Erik Gibbs MD Dermatitis (Primary Dx); Age-related osteoporosis without current pathological fracture; Stress incontinence of urine; Tubular adenoma of colon; Preventative health care; Mild intermittent asthma without complication; Palpitations; Rheumatoid arthritis involving multiple sites with positive rheumatoid factor ([facility]); Essential hypertension; Peripheral polyneuropathy 11/25/2024 Travel 11/24/2024 Telephone [facility] [address], [place] [phone] Erik Gibbs MD chartprep 10/16/2024 Refill [facility] [address], [place] [phone] Erik Gibbs MD Mixed hyperlipidemia 09/24/2024 Orders Only [facility] External Provider, [facility] from Last 3 Months Immunizations Immunization [...] the past 12 months, has t he [employer], gas, oil or water company threatened to [...] High Sensitivity (11/27/2024 10:38 AM EDT) Pathologist [facility] D Dimer High Sensitivity <150 NG/ML [facility] Comment:D-DIMER HS REFERENCE RANGENote: Our [...] Provider LAB BLOOD ORDERAB LES Final Result [facility] [address] [place] [phone] * TSH with Reflex to Free T4 (11/27/2024 10:38 AM EDT) Pathologist [facility] TSH reflex Free T4 1.25 0.32 - 4.0 uIU/mL [facility] Blood Venous blood specimen / Unknown 11/27/2024 10:38 AM EDT 11/27/2024 1:09 PM EDT Erik Ortiz MD LAB BLOOD ORDERABLES Final Result [facility] [address] [place] [address] [phone] * (ABNORMAL) CBC auto differential (11/27/2024 10:38 AM EDT) White Blood Count 3.8(L) 4.8 - 10.8 X10*3/uL [facility] Red Blood Count 4.62 4.20 - 5.50 X10*6/uL [facility] Hemoglobin 11.7(L) 12.0 - 16.0 g/dl [facility] Hematocrit 37.8 37.0 - 47.0 % [facility] Mean Corpuscular Volume 81.8 80.0 - 98.0 fL [facility] Mean Corpuscular Hemoglobin 25.3(L) 27.0 - 33.0 pg [facility] Mean Corpuscular HGB Conc 31.0 31.0 - 35.0 g/dl [facility] Red Cell Distribution Width 16.3(H) 11.0 - 16.0 % [facility] Platelet Count 304 160 - 400 X10*3/uL [facility] Mean Platelet Volume 11.4 9.4 - 12.3 fL [facility] Neutrophils Percent Auto 42.0(L) 45 - 73 % [facility] Imm Gran Pct Auto 0.3 0.0 - 0.4 % [facility] Lymphocytes Percent Auto 37.0 20 - 40 % [facility] Monocytes Percent Auto 12.1(H) 2 - 11 % [facility] Eosinophils Percent Auto 7.6(H) 0 - 4 % [facility] Basophils Percent Auto 1.0 0 - 2 % [facility] NRBC Pct Auto 0.0 0.0 - 0.2 /100WBC [facility] Neutrophils Absolute Auto 1.6(L) 2.0 - 8.3 x10*3/uL [facility] Imm Gran Abs Auto 0.01 0.00 - 0.03 X10*3/uL [facility] Lymphocytes Absolute Auto 1.4 1.2 - 4.9 X10*3/uL [facility] Monocytes Absolute Auto 0.5 0.1 - 1.2 X10*3/uL [facility] Eosinophils Absolute Auto 0.3 0.0 - 0.4 X10*3/uL [facility] Basophils Absolute Auto 0.0 0.0 - 0.2 X10*3/uL [facility] NRBC Abs Auto 0.000 0.0 - 0.012 X10*3/uL [facility] 11/27/2024 10:3 8 AM EDT 11/27/2024 1:09 PM EDT us Generic External Data Provider LAB BLOOD ORDERAB LES Final Result [facility] [address], [place] [phone] * (ABNORMAL) Lipid Panel, Standard (11/27/2024 10:38 AM EDT) Triglycerides 68 <150 mg/dL [facility] Comment:Desirable Triglyceri de: less than 150 mg/dLBorderline High Triglyceride 150-199 mg/dLHigh Triglyceride: 200-499 mg/dLVery High Triglyceride: greater than or equal to 5OO mg/dL Cholesterol 199 <200 mg/dL [facility] Comment:Desirable Cholestero l: less than 200 mg/dLBorderline High Cholesterol: 200-239 mg/dLHigh Cholesterol: greater than 239 mg/dL LDL Cholesterol Calculated 104(H) <100 mg/dL [facility] Comment:Desirable LDL: less than 100 mg/dLNear Optimal/Above Optimal LDL: 110- 129 mg/dLBorderline High LDL: 130-159 mg/dLHigh LDL: 160-189 mg/dLVery High LDL: greater than or equal to 190 mg/dL HDL Cholesterol 82 >40 mg/dL [facility] Comment:Desirable HDL: great er than 40 mg/dL Note: This HDL assay may give artificially low results in patients with liver disease. Blood Venous blood specimen / Unknown 11/27/2024 10:38 AM EDT 11/27/2024 1:09 PM EDT us Erik Ortiz MD LAB BLOOD ORDERABLES Final Result [facility] [address] [place] [phone] * (ABNORMAL) Comprehensive Metabolic Panel (11/27/2024 10:38 AM EDT) Sodium 141 135 - 145 mmol/L [facility] Potassium 3.7 3.3 - 5.1 mmol/L [facility] Chloride 105 96 - 108 mmol/L [facility] Carbon Dioxide 26 22 - 29 mmol/L [facility] Anion Gap 14 12 - 20 [facility] Urea Nitrogen (BUN) 13 9 - 16 mg/dL [facility] Creatinine, Serum 0.77 0.5 - 1.4 mg/dL [facility] Estimated Glomerular Filt Rate >60 [facility] Comment:Chronic Kidney Disea se: Estimated GFR < 60 mL/min/1.53u4Lnomqy Kidney Disease: Estimated GFR < 15 mL/min/1.73m2 Glucose 73 60 - 115 mg/dL [facility] Calcium 9.5 8.4 - 10.2 mg/dL [facility] Bilirubin, Total 0.5 0.0 - 1.0 mg/dL [facility] Aspartate Amino Transferase 38(H) 5 - 31 U/L [facility] Alanine Aminotransferase 19 0 - 31 U/L [facility] Total Protein 7.7 6.5 - 8.0 g/dL [facility] Albumin Level 4.3 3.5 - 5.0 g/dL [facility] Alkaline Phosphatase 96 39 - 117 U/L [facility] Blood Venous blood specimen / Unknown 11/27/2024 10:38 AM EDT 11/27/2024 1:09 PM EDT us Erik Ortiz MD LAB BLOOD ORDERABLES Final Result [facility] [address] [facility] [place] [address] [phone] * BD DEXA Axial (09/24/2024 10:15 AM EDT) Anatomical Region Laterality Modality Body Radiographic Deyanira ging 09/24/2024 10:1 5 AM EDT Narrative 09/24/2024 10:43 AM EDT [address] [place] [address] Mammography Report Signed Patient: Vicky Craft MR#: [id number] 55 : 1945 Acct:[id number] Age/Sex: 79 / F ADM Date: 09/24/24 Loc: HO.MAMMO Attending Dr: Lisy Hooker MD Ordering Physician: Lisy Hooker MD Results: Date of Service: 09/24/24 Follow Up: Procedure(s): XR DEXA axial skeleton Accession Number(s): [id number] cc: Lisy Hooker MD; Erik Farrar MD EXAMINATION: DXA BONE DENSITY AXIAL HISTORY: M80.00XS - Age-related osteoporosis with current pathological fracture, ... TECHNIQUE: [employer] Dual energy absorptiometry (DEXA) of the lumbar [...] is a trademark of the [employer]'s [employer] for Metabolic Bone Disease, a World Health Organization (WHO) Collaborating Center. Electronically signed by: Christopher Valdivia MD 09/24/2024 10:39 AM EDT Dictated By: Christopher Valdivia MD Signed By: <Electronically signed by Christopher Valdivia MD in OV> 09/24/24 1039 DD/ 1015 TD/TT: 09/24/24 1030 Tube Builder: Procedure Note Donotuseinterpreter, Image - 09/24/2024 [facility] [address] [place] [address] Mammography Report Signed Patient: Vicky CraftMR#: [id number] 55 : 5Acct:[id number] Age/Sex: 79 / FADM Date: 09/24/24 Loc: SHANO Attending Dr: Lisy Hooker MD Ordering Physician: Lisy Hooker MDResults: Date of Service: 09/24/24Follow Up: Procedure(s): XR DEXA axial skeleton Accession Number(s): [id number] cc: Lisy Hooker MD; Erik Farrar MD EXAMINATION: DXA BONE DENSITY AXIAL HISTORY: M80.00XS - Age-related osteoporosis with current pathological fracture, ... TECHNIQUE: [employer] Dual energy absorptiometry (DEXA) of the lumbar [...] of the [employer]'s [employer] Met[employer] Disease, a World Health Organization (WHO) Collaborating Center. Electronically signed by: Christopher Valdivia MD 09/24/2024 10:39 AM EDT RP Dictated By: Christopher Valdivia MD Signed By: <Electronically signed by Christopher Valdivia MD in OV> 09/24/24 1039 DD/ 1015 TD/TT: 09/24/24 1030 Tube Builder: [facility] External Provider IMG DXA PROCEDURES Edited Result - Final * (ABNORMAL) Hm Colonoscopy (03/25/2024) Colonoscopy Abnormal(A ) Normal 03/25/2024 Erik Ortiz MD HEALTH MAINTENANCE Fi nal Result * Hepatitis Panel, General (02/27/2024 2:38 PM EDT) Hepatitis A IgM Nonreactive Nonreactive [facility] Comment:IgM antibodies to BARRETO V not detected; does not exclude earlyacute or recovered HAV infection. ~Hepatitis B Surface Antibody NONREACTIVE Nonreactive [facility] Comment:Nonreactive: < 8.00 mIU/mL Hepatitis B Core Antibody Nonreactive Nonreactive [facility] Hepatitis C Antibody Nonreactive Nonreactive [facility] Comment:Antibodies to HCV no t detected; does not exclude early acuteHCV infection. Hepatitis B Surface Ag Negative Negative [facility] 02/27/2024 2:38 PM EDT 02/27/2024 2:38 PM EDT Generic External Data Provider LAB BLOOD ORDERAB LES Final Result [facility] [address] [place] [phone] from Last 3 Months or Most Recently Relevant to Health Maintenance Insurance [facility] RESIDENTIAL OPTIONS (HMO D-SNP) SHYANNE SÁNCHEZ [id number] Care Teams Scaffolder Relationship Specialty Start Date End Date Erik Gibbs MD [address] [place] [phone] PCP - General Internal Medicine 02/18/19
--- NOTE | 2024-12-18 14:36 | AM.OFFVISNUR ---
Intake Visit Reasons: prolia injection Allergies BERNADETTE Inhibitors Allergy (Severe, Verified 12/15/24 14:37) Angioedema Iodinated Contrast Media (CONTRAST, IV) Allergy (Intermediate, Verified 12/15/24 14:37) SWELLING, ITCHINESS, RASH Penicillins (PENICILLINS) Allergy (Intermediate, Verified 12/15/24 14:37) ITCHINESS, RASH, SWELLING latex Allergy (Verified 12/15/24 14:37) Hives Sulfa (Sulfonamide Antibiotics) Allergy (Verified 12/15/24 14:37) Unknown zoledronic acid (From Reclast) Adverse Reaction (Verified 12/15/24 14:37) Joint Pain Office Meds Prolia 60 mg/mL subcutaneous syringe Performing Provider: Lisy Hooker MD Performing Location: [facility] [place] Administered by: Amanda Curry RN on 12/18/24 14:36 Dose Route Admin Location Dispensed Lot Number Expiration Date NDC Mapping Pilot 60 mg subcut left upper arm 1 mL [id number] 07/26/27 53143-838-25 AMGEN Total Dispensed Waste 1 mL 0 % Comments: Patient tolerated injection well Assessment & Plan Assessment & Plan Orders: Orders AMB Denosumab Injection Practice Supplied Today M80.00XS - Age-related osteoporosis with current pathological fracture, unspecified site, sequela Coding
== END 2024-12-18 14:58 | disposition home or self-care (01) ==
LOC: HO.RHE 14:27
PROVIDERS: PCP Internal Medicine; Visit Provider Student in an Organized Health Care Education/Training Program
DX: M80.00XS Age-related osteoporosis with current pathological fracture, unspecified site, sequela (principal)

== ENCOUNTER → 2024-12-18 14:27 | Outpatient (BNVA) | payer OTHER, SELFPAY | PROVIDERS: PCP Internal Medicine; Visit Provider Student in an Organized Health Care Education/Training Program | DX: M80.08XS Age-related osteoporosis with current pathological fracture, vertebra(e), sequela (principal) | CPT/HCPCS: 96372; J0897 ==

== ENCOUNTER 2024-12-22 16:28 | Outpatient (AMB) | payer OTHER, SELFPAY ==
--- OUTSIDE RECORDS SUMMARY | 2024-09-22 07:00 | XMS_ITS ---
Author Organization [facility] Address [address] [place] [phone] Care Team Providers Care Bmw Sales Consultant Name Role Phone Tolu Ortiz MD, Erik Primary Care Provide r Unavailable Denny Lindo, Jorge Unavailable REASON FOR VISIT Patient presents today for dysphagia Medications Medication SIG (Take, Route, Frequency, Duration) Notes Start Date End Date Status Eliquis 5 MG TAKE 1 TABLET BY MOUTH TWICE DAILY Oral for 30 Unknown Atorvastatin Calcium 20 MG TAKE 1 TABLET BY MOUTH AT BEDTIME Oral for 30 E782,Unavail able Unknown Leflunomide 20 MG TAKE 1 TABLET BY MOUTH EVERY DAY Oral for 90 Unknown DULoxetine HCl 60 MG TAKE 1 CAPSULE BY MOUTH EVERY MORNING Oral for 30 Unknown Temazepam 30 MG TAKE 1 CAPSULE BY MOUTH AT BEDTIME NEEDED FOR SLEEP Oral for 30 Unknown Albuterol Sulfate HFA 108 (90 Base) MCG/ACT 1 puff as needed Inhalation every 4 hrs Unknown Omeprazole 40 MG 1 capsule 1/2 to 1 hour before morning meal Orally Once a day for 30 day(s) 03/12/2024 Unknown Simvastatin 10 MG Oral for 90 Unknown Multivitamin - Oral for 90 Unk nown Metoprolol Succinate ER 50 MG Oral for 90 Unknown hydroCHLOROthiazide 12.5 MG Oral for 90 Unknown D3 Super Strength 50 MCG (2000 UT) Oral for 90 Unknown B-12 1000 MCG Oral for 90 Unkn own Encounters Encounter Location Date Provider Diagnosis [facility] [address] [place] [address] 09/22/2024 Jorge Baldwin Jr Plan Of Treatment Next Appt Details Provider Name:Jorge salazar Jr, 11/30/2025 10:30:00 AM, [address] [facility], [address], [place], [address], Progress Notes * DAVID OROZCOOB: 5 (79 yo F)Acc No.[id number]:09/22/2024 Progress Notes Patient: KAYLIE WETZEL Provider: Niels Baldwin MD :1945 A ge:79 Y S ex:Female Date:09/22/2024 Address:[address] [place], [place] [address], [place] Pcp:Erik gerber MD Subjective: * Chief Complaints: * 1 . Patient presents today for dysphagia. * Medical History: * Medications: U nknown Albuterol Sulfate HFA 108 (90 Base) MCG/ACT Aerosol Solution 1 puff as needed Inhalation every 4 hrs , Unknown Metoprolol Succinate ER 50 MG Tablet Extended Release 24 Hour Oral , Unknown Multivitamin - Tablet Oral , Unknown Temazepam 30 MG Capsule TAKE 1 CAPSULE BY MOUTH AT BEDTIME NEEDED FOR SLEEP Oral , Unknown DULoxetine HCl 60 MG Capsule Delayed Release Particles TAKE 1 CAPSULE BY MOUTH EVERY MORNING Oral , Unknown Atorvastatin Calcium 20 MG Tablet TAKE 1 TABLET BY MOUTH AT BEDTIME Oral , Notes to Pharmacist: E782,Unavailable, Unknown Eliquis 5 MG Tablet TAKE 1 TABLET BY MOUTH TWICE DAILY Oral , Unknown Leflunomide 20 MG Tablet TAKE 1 TABLET BY MOUTH EVERY DAY Oral , Unknown B-12 1000 MCG Lozenge Oral , Unknown D3 Super Strength 50 MCG (2000 UT) Capsule Oral , Unknown hydroCHLOROthiazide 12.5 MG Tablet Oral , Unknown Simvastatin 10 MG Tablet Oral , Unknown Omeprazole 40 MG Capsule Delayed Release 1 capsule 1/2 to 1 hour before morning meal Orally Once a day Objective: * Vitals: Assessment: Plan: * Treatment: * * The named appointment provid er may or may not be the originator of this progress note, and it is not deemed complete until electronically signed by the appointment provider. Sign off status: Pending * Provider: Niels Baldwin MD Date: 0 09/22/2024 Generated for Master clark/Laney/Kathrineitting on: 0 12/22/2024 04:30 PM EDT
--- NOTE | 2024-12-22 16:28 | MHC.OFFVIS ---
Intake Visit Reasons: 6m/OAB Intake Note: Patient is present via telehealth for 6m follow up/OAB Urology Meds: Myrbetriq Antibiotic Allergies: PCN, Sulfa Blood Thinners: Eliquis Fiberglass Insulation Installer Required: Yes Fiberglass Insulation Installer Services: Fiberglass Insulation Installer Present Fiberglass Insulation Installer Name: [employer] # [id number] Allergies BERNADETTE Inhibitors Allergy (Severe, Verified 12/22/24 16:29) Angioedema Iodinated Contrast Media (CONTRAST, IV) Allergy (Intermediate, Verified 12/22/24 16:29) SWELLING, ITCHINESS, RASH Penicillins (PENICILLINS) Allergy (Intermediate, Verified 12/22/24 16:29) ITCHINESS, RASH, SWELLING latex Allergy (Verified 12/22/24 16:29) Hives Sulfa (Sulfonamide Antibiotics) Allergy (Verified 12/22/24 16:29) Unknown zoledronic acid (From Reclast) Adverse Reaction (Verified 12/22/24 16:29) Joint Pain HPI Comments Details: 12/22/24-- History of Present Illness - The patient is a 79-year-old female presenting for follow-up on bladder medication management. - The patient has been using Mirabegron for overactive bladder. - The medication is taken once daily and has been well-tolerated. - The patient reports doing well on the current regimen. Plan - Continue Mirabegron once daily for overactive bladder management. - Schedule a follow-up appointment in nine months to reassess the condition. - Advise the patient to contact the nurse if any issues arise before the scheduled follow-up. 07/24/24-- Vicky is a 79-year-old female presenting FU Overactive Bladder. Frequent urination urgency symptoms, which were managed with Mirabegron. Insurance did not cover the gemtesa. The medication has been effective in reducing the frequency and urgency of urination. Although the patient uses pads when leaving the house, they are seldom heavily used, indicating controlled urinary incontinence. No additional urinary symptoms, such as burning or nocturia, were indicated. Thus far, her symptom management has been successful with the medication prescribed. 05/22/24--Vicky is here for follow up urinary incontinence. Last seen on 03/20/24-started on Gemtesa, sent for US renal/bladder 04/28/24--discussed within normal limits. The patient is here with her daughter who interprets for her. She states that they were unable to get the Gemtesa as it required a prior authorization. She states her mother still has a problem with the urgency and urine incontinence. Discussed avoid dietary bladder irritants cut back on caffeine intake. I will send Myrbetriq 50 mg and schedule a 2 month follow-up to review changes with urinary symptoms. 03/20/24--Vicky is here for c/o's urinary incontinence. She states that she feels a pain or pressure and then has a strong urge to use the bathroom and sometimes does not always make it to the bathroom. Status post total hysterectomy-- 4 ovarian cyst about 1992. Denies recent UTI. Denies burning with urination. The patient is on Eliquis and hydrochlorothiazide. Comorbidity diuretic. Discussed trial of Gemtesa we will check kidney and bladder ultrasound. [facility] Medical History Encounter for monitoring denosumab therapy On half-way leflunomide therapy Encounter for monitoring leflunomide therapy Right ankle swelling Long-term use of immunosuppressant medication Dry skin dermatitis Leg edema Surgical History History of cholecystectomy History of appendectomy History of total abdominal hysterectomy and bilateral salpingo-oophorectomy History of bariatric surgery History of colonoscopy Family History Father Asthma Mother Rheumatoid arthritis Cardiovascular disease Social History Household Members: Family Housing: House Are you a primary patient care technician to a significant other at home: No Do you presently have visiting nurse or other home services: Yes (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) Alcohol intake: never Patient Tobacco Use Status: Never used Tobacco Advance Directives Date on File: 02/06/24 service: No Current occupational status: disabled Review of Systems Const All systems reviewed & are unremarkable except as noted in HPI and below Reports no additional complaints Eyes Reports no additional complaints ENT Reports no additional complaints Card Reports no additional complaints Resp Reports no additional complaints GI Reports no additional complaints Reports as per HPI Musc Reports no additional complaints Skin/Breast Reports system reviewed and no additional complaints, except as documented Neuro Reports no additional complaints Psych Reports no additional complaints Endo Reports no additional complaints Manuel/Lymph Reports no additional complaints Aller/Immun Reports no additional complaints Telehealth Telehealth Telehealth Platform: Telephone Location of provider rendering services: practice address Location of patient: address on file Patient Identification confirmed using: Name, : Yes Telehealth method: voice only Patient verbally consented to treatment: Yes Patient verbally consented to billing insurance company: Yes Patient informed of any privacy concerns related to visit: Yes Minutes spent on Phone/Video with Pt.: 13 Results Reviewed Results Reviewed: Date of Service: 04/28/24 US RETROPERITONEAL COMPLETE (RENAL) CLINICAL INFORMATION: Unspecified urinary incontinence. COMPARISON: CT abdomen and pelvis 02/02/2022. X-ray abdomen KUB 04/01/2019. TECHNIQUE: Real-time imaging of the kidneys and bladder. FINDINGS: RIGHT KIDNEY: 8.8 x 3.7 x 4.2 cm (SAG x AP x TRV). The kidney is normal in size, contour, and echogenicity. Renal cortical thickness is normal. No calculi or focal parenchymal lesions. No hydronephrosis. LEFT KIDNEY: 9.0 x 4.1 x 6.1 cm (SAG x AP x TRV). The kidney is normal in size, contour, and echogenicity. Renal cortical thickness is normal. No calculi or focal parenchymal lesions. No hydronephrosis. BLADDER: Well distended and normal. Bilateral ureteral jets are not demonstrated. Prevoid bladder volume is 206.13 mL. There is no postvoid residual. IMPRESSION: Normal examination of the kidneys and urinary bladder.. Assessment & Plan Assessment & Plan (1) Urinary incontinence: Code(s): R32 - Unspecified urinary incontinence Category: Medical (2) Urinary urgency: Code(s): R39.15 - Urgency of urination Category: Medical (3) Bladder spasms: Code(s): N32.89 - Other specified disorders of bladder Category: Medical Plan Plan - Continue Mirabegron once daily for overactive bladder management. - Schedule a follow-up appointment in nine months to reassess the condition. - Advise the patient to contact the nurse if any issues arise before the scheduled follow-up. Patient Instructions: This note is constructed using voice recognition software. While every effort has been made to ensure accuracy hearing aid consultant errors may have been included. Scribe Plan - Not visible on output: Patient was informed and verbally consented to the use of an ambient scribe for clinic note documentation during this visit. Coding Level of Care Code Tele Est Pt Level 3 (02174) Diagnoses Urinary incontinence R32 Urinary urgency R39.15 Bladder spasms N32.89
--- OUTSIDE RECORDS SUMMARY | 2024-12-22 16:30 | XMS_ITS | Clinical Summary ---
Author Organization [facility] Address [address] [place] [address] Phone Care Team Providers Care Junior Net Developer Name Role Phone Erik Farrar MD [facility] Surgical History Surgery Date Site/Laterality [...] hemorrhoids. One diminutive tubular adenoma. 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 wer extremity ([facility] V24, [facility] V28) 08/11/2015 DX:Deep venous th rombosis of lower extremity (HCC); COMMENT: S/p IVC filter b/l 2001 Osteoarthritis 03/03/2016 DX:Osteoarthriti s; COMMENT: Cervical spine, shoulders, knees Left knee pain 05/02/2017 DX:Left knee dusty n Neck pain 05/02/2017 DX:Neck pain Shoulder pain, right 05/02/2017 DX:Shoulder pain, right Rheumatoid arthritis with rh eumatoid factor ([facility] V24, [facility] V28) 01/25/2017 DX:Rheumatoid arthri tis with rheumatoid factor ([facility]) Rheumatoid arthritis flare ( [facility] V24, [facility] V28) 07/26/2017 DX:Rheumatoid arthritis flar e ([facility]) Pulmonary embolus ([facility] V 24, [facility] V28) 06/18/2014 DX:Pulmonary embolus ([facility]) Popliteal fullness 05/02/2017 DX:Popliteal fullness [...] age to complete this topic Care Teams Junior Net Developer Relationship Specialty Start Date End Date Erik Farrar MD [address] [place] [address] [place] [address] PCP - General Internal Medicine 02/19/19
--- OUTSIDE RECORDS SUMMARY | 2024-12-22 16:30 | XMS_ITS | Clinical Summary ---
Author Organization [employer] Address [address] [place] [address] [address] [place] [address] Care Team Providers Care Grades 1 Thru 6 Visiting Teacher Name Role Phone Erik Gibbs MD [...] Pt had NCS 09/24/2024 ordered by her Tomato Grader that showed sensorimotor bilateral peripheral neuropathy, axonal features. This could likely be a result of her RA Preventative health care 03/18/2024 Assessment & Plan (11/25/2024 9:08 AM EDT): Mammogram: 05/05/2024 Normal Pap Smear: s/p NIDA and BSO 1993 for fibroids Colonoscopy: 11/14/2017 SHOWED Tubular Adenoma 5 yr f/u recommended. Had colonoscopy at [facility] 03/25/2024: It showed diverticulosis and internal hemorrhoids [...] Patient here for a HDF Admitted to [facility] from 02/05-02/07/2024 where she [...] Echocardiogram on 04/18/2024 which showed EF 60-65%, [id number] tricuspid regurgitation, no pericardial effusion. Nuclear stress [...] their notes She is being followed at [facility] Coumadin clinic Assessment & [...] last 06/09/2021 She is being followed at [facility] Coumadin clinic Cobalamin deficiency [...] reports wheezing intermittently. Seen by Dr. Aviles Portfolio Assistant 05/18/2024 he mentioned she did not tolerate Breo Elipta. Assessment & Plan (03/18/2024 2:55 PM EDT): Pt uses Pro-Air on a prn basis maybe once or twice a month, pt reports wheezing intermittently. Seen by Dr. Aviles Portfolio Assistant 03/14/2024 he added Nikolai mott recommended full [...] care of a psychotherapist Symone Arce at [facility] [phone] Javi Oshea On Duloxetine 20 mg capsule daily and temazepam 15 mg po qhs Rheumatoid arthritis 06/07/2022 Assessment & Plan (11/25/2024 9:18 AM EDT): Pt is here for a f/u She has RA diagnosed in 2000 She is followed at [facility] Rheumatology. Previously she was under the care of Raiza stauffer tel: [phone] In the past she was on Humira [...] diagnosed in 2000 She is followed at [facility] Rheumatology. Previously she was under the care of Raiza stauffer tel: [phone] In the past she was on Humira [...] diagnosed in 2000 She is followed at [facility] Rheumatology, last note 11/27/2022 Previously she was under the care of Raiza stauffer tel: [phone] In the past she was on Humira [...] diagnosed in 2000 She is followed at [facility] Rheumatology, last note 11/27/2022 Previously she was under the care of Raiza stauffer tel: [phone] In the past she was on Humira [...] diagnosed in 2000 She is followed at [facility] Rheumatology, last note 11/27/2022 Previously she was under the care of Raiza stauffer tel: [phone] In the past she was on Humira [...] a month once the ankle is resolved. Tomato Grader to consider to try another medication for her RA if she has swelling and pain in her hands again. Follow-up with Rheumatology Assessment & Plan (01/16/2023 12:46 PM EDT): Pt is here for a f/u She has RA diagnosed in 2000 She is followed at [facility] Rheumatology, last note 11/27/2022 Previously she was under the care of Raiza stauffer tel: [phone] In the past she was on Humira [...] diagnosed in 2000 She is followed at [facility] Rheumatology, last note 03/14/2022 Previously she was under the care of Raiza stauffer tel: [phone] In the past she was on Humira and Prednisone with no good results. She was on Methotrexate, Kevsara nd Folic aci, but her Tomato Grader recently held them due to a low WBC count of 3.2 she is getting weekly CBCs Assessment & Plan (06/08/2022 10:21 AM EST): Pt is here for a f/u She has RA diagnosed in 2000 She is followed at [facility] Rheumatology, last note 03/14/2022 Previously she was under the care of Raiza stauffer tel: [phone] In the past she was on Humira and Prednisone with no good results. She was on Methotrexate, Kevsara nd Folic aci, but her Tomato Grader recently held them due to a low WBC count of 3.2 she is getting weekly CBCs Tubular adenoma of colon 06/07/2022 Assessment & Plan (11/25/2024 9:07 AM EDT): Colonoscopy: 11/14/2017 showed Tubular Adenoma 5 yr f/u recommended Pt referred to Dr. Baldwin, seen 03/12/2024 Had colonoscopy at [facility] 03/25/2024: It showed diverticulosis and internal hemorrhoids GI recommended NO further colonoscopies Assessment & Plan (03/18/2024 3:53 PM EDT): Colonoscopy: 11/14/2017 showed Tubular Adenoma 5 yr f/u recommended Pt referred to Dr. Baldwin, seen 03/12/2024 scheduled for colonoscopy at [facility] 03/25/2024 Assessment & Plan (06/08/2022 8:25 AM EST): Colonoscopy: 11/14/2017 showed Tubular Adenoma 5 yr f/u recommended Encounters Date Type Department Care Team Description 11/27/2024 Orders Only GENERIC EXTERNAL DATA DEPARTMENT Provider, Generic External Data 11/25/2024 9:00 AM EDT Office Visit [address] [phone] Erik Gibbs MD Dermatitis (Primary Dx); Age-related osteoporosis without current pathological fracture; Stress incontinence of urine; Tubular adenoma of colon; Preventative health care; Mild intermittent asthma without complication; Palpitations; Rheumatoid arthritis involving multiple sites with positive rheumatoid factor ([facility]); Essential hypertension; Peripheral polyneuropathy 11/25/2024 Travel 11/24/2024 Telephone [facility] [address] [place], [place] [phone] Erik Gibbs MD chartprep 10/16/2024 Refill [facility] [address] [place], [place] [phone] Erik Gibbs MD Mixed hyperlipidemia 09/24/2024 Orders Only [facility] External Provider, [facility] from Last 3 Months Immunizations Immunization [...] the past 12 months, has t he [employer], gas, oil or water company threatened to [...] High Sensitivity (11/27/2024 10:38 AM EDT) Pathologist [facility] D Dimer High Sensitivity <150 NG/ML [facility] Comment:D-DIMER HS REFERENCE RANGENote: Our [...] Provider LAB BLOOD ORDERAB LES Final Result [facility] [address] [place] [phone] * TSH with Reflex to Free T4 (11/27/2024 10:38 AM EDT) Pathologist [facility] TSH reflex Free T4 1.25 0.32 - 4.0 uIU/mL [facility] Blood Venous blood specimen / Unknown 11/27/2024 10:38 AM EDT 11/27/2024 1:09 PM EDT Erik Ortiz MD LAB BLOOD ORDERABLES Final Result [facility] [address] [place] [address] [phone] * (ABNORMAL) CBC auto differential (11/27/2024 10:38 AM EDT) White Blood Count 3.8(L) 4.8 - 10.8 X10*3/uL [facility] Red Blood Count 4.62 4.20 - 5.50 X10*6/uL [facility] Hemoglobin 11.7(L) 12.0 - 16.0 g/dl [facility] Hematocrit 37.8 37.0 - 47.0 % [facility] Mean Corpuscular Volume 81.8 80.0 - 98.0 fL [facility] Mean Corpuscular Hemoglobin 25.3(L) 27.0 - 33.0 pg [facility] Mean Corpuscular HGB Conc 31.0 31.0 - 35.0 g/dl [facility] Red Cell Distribution Width 16.3(H) 11.0 - 16.0 % [facility] Platelet Count 304 160 - 400 X10*3/uL [facility] Mean Platelet Volume 11.4 9.4 - 12.3 fL [facility] Neutrophils Percent Auto 42.0(L) 45 - 73 % [facility] Imm Gran Pct Auto 0.3 0.0 - 0.4 % [facility] Lymphocytes Percent Auto 37.0 20 - 40 % [facility] Monocytes Percent Auto 12.1(H) 2 - 11 % [facility] Eosinophils Percent Auto 7.6(H) 0 - 4 % [facility] Basophils Percent Auto 1.0 0 - 2 % [facility] NRBC Pct Auto 0.0 0.0 - 0.2 /100WBC [facility] Neutrophils Absolute Auto 1.6(L) 2.0 - 8.3 x10*3/uL [facility] Imm Gran Abs Auto 0.01 0.00 - 0.03 X10*3/uL [facility] Lymphocytes Absolute Auto 1.4 1.2 - 4.9 X10*3/uL [facility] Monocytes Absolute Auto 0.5 0.1 - 1.2 X10*3/uL [facility] Eosinophils Absolute Auto 0.3 0.0 - 0.4 X10*3/uL [facility] Basophils Absolute Auto 0.0 0.0 - 0.2 X10*3/uL [facility] NRBC Abs Auto 0.000 0.0 - 0.012 X10*3/uL [facility] 11/27/2024 10:3 8 AM EDT 11/27/2024 1:09 PM EDT us Generic External Data Provider LAB BLOOD ORDERAB LES Final Result [facility] [address] [place], [place] [phone] * (ABNORMAL) Lipid Panel, Standard (11/27/2024 10:38 AM EDT) Triglycerides 68 <150 mg/dL [facility] Comment:Desirable Triglyceri de: less than 150 mg/dLBorderline High Triglyceride 150-199 mg/dLHigh Triglyceride: 200-499 mg/dLVery High Triglyceride: greater than or equal to 5OO mg/dL Cholesterol 199 <200 mg/dL [facility] Comment:Desirable Cholestero l: less than 200 mg/dLBorderline High Cholesterol: 200-239 mg/dLHigh Cholesterol: greater than 239 mg/dL LDL Cholesterol Calculated 104(H) <100 mg/dL [facility] Comment:Desirable LDL: less than 100 mg/dLNear Optimal/Above Optimal LDL: 110- 129 mg/dLBorderline High LDL: 130-159 mg/dLHigh LDL: 160-189 mg/dLVery High LDL: greater than or equal to 190 mg/dL HDL Cholesterol 82 >40 mg/dL [facility] Comment:Desirable HDL: great er than 40 mg/dL Note: This HDL assay may give artificially low results in patients with liver disease. Blood Venous blood specimen / Unknown 11/27/2024 10:38 AM EDT 11/27/2024 1:09 PM EDT us Erik Ortiz MD LAB BLOOD ORDERABLES Final Result [facility] [address] [place] [phone] * (ABNORMAL) Comprehensive Metabolic Panel (11/27/2024 10:38 AM EDT) Sodium 141 135 - 145 mmol/L [facility] Potassium 3.7 3.3 - 5.1 mmol/L [facility] Chloride 105 96 - 108 mmol/L [facility] Carbon Dioxide 26 22 - 29 mmol/L [facility] Anion Gap 14 12 - 20 [facility] Urea Nitrogen (BUN) 13 9 - 16 mg/dL [facility] Creatinine, Serum 0.77 0.5 - 1.4 mg/dL [facility] Estimated Glomerular Filt Rate >60 [facility] Comment:Chronic Kidney Disea se: Estimated GFR < 60 mL/min/[id number] Kidney Disease: Estimated GFR < 15 mL/min/1.73m2 Glucose 73 60 - 115 mg/dL [facility] Calcium 9.5 8.4 - 10.2 mg/dL [facility] Bilirubin, Total 0.5 0.0 - 1.0 mg/dL [facility] Aspartate Amino Transferase 38(H) 5 - 31 U/L [facility] Alanine Aminotransferase 19 0 - 31 U/L [facility] Total Protein 7.7 6.5 - 8.0 g/dL [facility] Albumin Level 4.3 3.5 - 5.0 g/dL [facility] Alkaline Phosphatase 96 39 - 117 U/L [facility] Blood Venous blood specimen / Unknown 11/27/2024 10:38 AM EDT 11/27/2024 1:09 PM EDT us Erik Ortiz MD LAB BLOOD ORDERABLES Final Result [facility] [address] [facility] [place] [phone] * BD DEXA Axial (09/24/2024 10:15 AM EDT) Anatomical Region Laterality Modality Body Radiographic Deyanira ging 09/24/2024 10:1 5 AM EDT Narrative 09/24/2024 10:43 AM EDT [address] [place] [address] Mammography Report Signed Patient: Vicky Craft MR#: [id number] 55 : 1945 Acct:[id number] Age/Sex: 79 / F ADM Date: 09/24/24 Loc: HO.MAMMO Attending Dr: Lisy Hooker MD Ordering Physician: Lisy Hooker MD Results: Date of Service: 09/24/24 Follow Up: Procedure(s): XR DEXA axial skeleton Accession Number(s): [id number] cc: Lisy Hooker MD; Erik Farrar MD EXAMINATION: DXA BONE DENSITY AXIAL HISTORY: M80.00XS - Age-related osteoporosis with current pathological fracture, ... TECHNIQUE: Kartela Dual energy absorptiometry (DEXA) of the lumbar [...] is a trademark of the [employer]'s [place] [facility] Metabolic Bone Disease, a World Health Organization (WHO) Collaborating Center. Electronically signed by: Christopher Valdivia MD 09/24/2024 10:39 AM EDT Dictated By: Christopher Valdivia MD Signed By: <Electronically signed by Christopher Valdivia MD in OV> 09/24/24 1039 DD/ 1015 TD/TT: 09/24/24 1030 Cadd Operator: Procedure Note Donotuseinterpreter, Image - 09/24/2024 [facility] [address] [place] [address] Mammography Report Signed Patient: Vicky CraftMR#: [id number] 55 : 5Acct:[id number] Age/Sex: 79 / FADM Date: 09/24/24 Loc: SHANO Attending Dr: Lisy Hooker MD Ordering Physician: Lisy Hooker MDResults: Date of Service: 09/24/24Follow Up: Procedure(s): XR DEXA axial skeleton Accession Number(s): [id number] cc: Lisy Hooker MD; Erik Farrar MD EXAMINATION: DXA BONE DENSITY AXIAL HISTORY: M80.00XS - Age-related osteoporosis with current pathological fracture, ... TECHNIQUE: Kartela Dual energy absorptiometry (DEXA) of the lumbar [...] of the [employer] [place] [facility] [employer] Disease, a World Health Organization (WHO) Collaborating Center. Electronically signed by: Christopher Valdivia MD 09/24/2024 10:39 AM EDT RP Dictated By: Christopher Valdivia MD Signed By: <Electronically signed by Christopher Valdivia MD in OV> 09/24/24 1039 DD/ 1015 TD/TT: 09/24/24 1030 Cadd Operator: [facility] External Provider IMG DXA PROCEDURES Edited Result - Final * (ABNORMAL) Hm Colonoscopy (03/25/2024) Colonoscopy Abnormal(A ) Normal 03/25/2024 Erik Ortiz MD HEALTH MAINTENANCE Fi nal Result * Hepatitis Panel, General (02/27/2024 2:38 PM EDT) Hepatitis A IgM Nonreactive Nonreactive [facility] Comment:IgM antibodies to BARRETO V not detected; does not exclude earlyacute or recovered HAV infection. ~Hepatitis B Surface Antibody NONREACTIVE Nonreactive [facility] Comment:Nonreactive: < 8.00 mIU/mL Hepatitis B Core Antibody Nonreactive Nonreactive [facility] Hepatitis C Antibody Nonreactive Nonreactive [facility] Comment:Antibodies to HCV no t detected; does not exclude early acuteHCV infection. Hepatitis B Surface Ag Negative Negative [facility] 02/27/2024 2:38 PM EDT 02/27/2024 2:38 PM EDT Generic External Data Provider LAB BLOOD ORDERAB LES Final Result [facility] [address] [place] [phone] from Last 3 Months or Most Recently Relevant to Health Maintenance Insurance [facility] DETENTION OPTIONS (HMO D-SNP) SHYANNE SÁNCHEZ [id number] Care Teams Grades 1 Thru 6 Visiting Teacher Relationship Specialty Start Date End Date Erik Gibbs MD [address] [place] [phone] PCP - General Internal Medicine 02/18/19
--- OUTSIDE RECORDS SUMMARY | 2024-12-22 16:30 | XMS_ITS | Encounter Summary ---
Author Organization [facility] Address [address] [place] [address] Care Team Providers Care Cooling Pan Tender Name Role Phone Erik Motley MD Primary Care Provider [phone] Encounter Details Date Type Department Care Team (Late st Contact Info) Description 07/18/2019 Scanned Document [facility] Rheumatology [address] [phone] Raiza Luis MD Social History Tobacco Use [...] on filedocumented in this encounter Care Teams Cooling Pan Tender Relationship Specialty Start Date End Date Erik Motley MD [address] [place] [address] [place] [address] PCP - General 07/18/19 documented as of this encounter
== END 2024-12-22 16:54 | disposition home or self-care (01) ==
LOC: HO.HUSH 16:28
PROVIDERS: PCP Internal Medicine; Visit Provider Urology
DX: R32 Unspecified urinary incontinence (principal); R39.15 Urgency of urination; N32.89 Other specified disorders of bladder
CPT/HCPCS: 99213

== ENCOUNTER 2025-02-17 11:15 | Outpatient (REF) | payer OTHER, SELFPAY ==
[2025-02-17 13:04] LABS: MANUAL DIFF FLAG NO
[2025-02-17 13:10] LABS: Hematocrit 34.8 % (37.0-47.0); Hemoglobin 10.9 g/dl (12.0-16.0); Imm Gran Abs Auto 0.00 X10*3/uL (0.00-0.03); Imm Gran Pct Auto 0.0 % (0.0-0.4); Lymphocytes Absolute Auto 1.7 X10*3/uL (1.2-4.9); Mean Corpuscular HGB Conc 31.3 g/dl (31.0-35.0); Mean Corpuscular Hemoglobin 25.7 pg (27.0-33.0); Mean Corpuscular Volume 82.1 fL (80.0-98.0); NRBC Abs Auto 0.000 X10*3/uL (0.0-0.012); NRBC Pct Auto 0.0 /100WBC (0.0-0.2); Platelet Count 300 X10*3/uL (160-400); Red Blood Count 4.24 X10*6/uL (4.20-5.50); White Blood Count 3.5 X10*3/uL (4.8-10.8)
[2025-02-17 13:28] LABS: Alanine Aminotransferase 11 U/L (0-31); Albumin Level 3.8 g/dL (3.5-5.0); Alkaline Phosphatase 87 U/L (39-117); Anion Gap 10 (12-20); Aspartate Amino Transferase 29 U/L (5-31); Blood Urea Nitrogen 16 mg/dL (9-16); Calcium 9.2 mg/dL (8.4-10.2); Carbon Dioxide 29 mmol/L (22-29); Chloride 108 mmol/L (96-108); Estimated Glomerular Filt Rate > 60; Potassium 4.4 mmol/L (3.3-5.1); Sodium 143 mmol/L (135-145); Total Protein 6.8 g/dL (6.5-8.0)
--- OUTSIDE RECORDS SUMMARY | 2025-02-17 14:07 | XMS_ITS | Encounter Summary ---
Author Organization [employer] Address [address] [facility] 7t [place] [address] Care Team Providers Care Chief Embalmer Name Role Phone Erik Gibbs MD Primary Care Provide r Reason for Visit * Reason Comments Med Refill Encounter Details Date Type Department Care Team ([facility] st Contact Info) Description 07/15/2023 Refill [facility] [address] [place], [place] [phone] Yovana Moore MD [address] [place] [address] Social History Tobacco Use Types Packs/Day Years [...] Care Team (Late st Contact Info) Description 04/14/2025 11:15 AM EST Office Visit [facility] [address] [place], [place] [phone] Erik Gibbs MD [address] [place] [address] documented as of this encounter Goals Goal [...] documented as of this encounter Care Teams Chief Embalmer Relationship Specialty Start Date End Date Erik Gibbs MD [address] [place] [address] PCP - General Internal Medicine 02/18/19 documented as of this encounter
--- OUTSIDE RECORDS SUMMARY | 2025-02-17 14:07 | XMS_ITS | Clinical Summary ---
Author Organization [facility] Address [address] [place] [address] Phone Care Team Providers Care Pastry Cook Name Role Phone Erik Farrar MD [facility] Surgical History Surgery Date Site/Laterality Comments [...] hemorrhoids. One diminutive tubular adenoma. 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 wer extremity ([facility] V24, [facility] V28) 08/11/2015 DX:Deep venous th rombosis of lower extremity (HCC); COMMENT: S/p IVC filter b/l 2001 Osteoarthritis 03/03/2016 DX:Osteoarthriti s; COMMENT: Cervical spine, shoulders, knees Left knee pain 05/02/2017 DX:Left knee dusty n Neck pain 05/02/2017 DX:Neck pain Shoulder pain, right 05/02/2017 DX:Shoulder pain, right Rheumatoid arthritis with rh eumatoid factor ([facility] V24, [facility] V28) 01/25/2017 DX:Rheumatoid arthri tis with rheumatoid factor ([facility]) Rheumatoid arthritis flare ( [facility] V24, [facility] V28) 07/26/2017 DX:Rheumatoid arthritis flar e ([facility]) Pulmonary embolus ([facility] V 24, [facility] V28) 06/18/2014 DX:Pulmonary embolus ([facility]) Popliteal fullness 05/02/2017 DX:Popliteal fullness [...] Screening: Colonoscopy 05/06/2022 Falls Risk Assessment 05/06/2022 Osteoporosis Screening (Bone Density Screening) 05/06/2022 Social Influencers of Health Screening 05/06/2022 Hypertension/CHF/CAD Annual BMP Blood Test 05/12/2022 Depression Screening 05/28/2024 COVID-19 Vaccine (1 - 2023-2 5 season) 2025 Influenza Vaccine (#1) 2025 DTaP,Tdap,and Td Vaccines [...] age to complete this topic Care Teams Pastry Cook Relationship Specialty Start Date End Date Erik Farrar MD [address] [place] [address] [facility] [place] [address] PCP - General Internal Medicine 02/19/19
--- OUTSIDE RECORDS SUMMARY | 2025-02-17 14:07 | XMS_ITS | Encounter Summary ---
Author Organization [facility] Address [address] [place] [address] Care Team Providers Care Adult School Teacher Name Role Phone Jacob Manuel MD Primary Care Provider Pcp, No Primary Care Provider Erik Hamilton MD Primary Care Provider [phone] Encounter Details Date Type Department Care Team (Late st Contact Info) Description 03/31/2019 Scanned Document [facility] Rheumatology [address] [phone] Raiza Luis MD Social History Tobacco Use [...] on filedocumented in this encounter Care Teams Adult School Teacher Relationship Specialty Start Date End Date Jacob Manuel MD [address] [place] [phone] PCP - General Internal Medicine 11/08/18 04/29/19 Pcp, No PCP - General 05/19/19 07/17/19 Erik Motley MD [address] [place] [address] [place] [address] PCP - General 07/18/19 documented as of this encounter
--- OUTSIDE RECORDS SUMMARY | 2025-02-17 14:07 | XMS_ITS | Clinical Summary ---
Author Organization [employer] Address [address] [place] [address] 7t [place] [address] Care Team Providers Care Medical Historian Name Role Phone Erik Gibbs MD Primary [...] Pt had NCS 09/24/2024 ordered by her Instrument And Control Technician that showed sensorimotor bilateral peripheral neuropathy, axonal features. This could likely be a result of her RA Preventative health care 03/18/2024 Assessment & Plan (11/25/2024 9:08 AM EDT): Mammogram: 05/05/2024 Normal Pap Smear: s/p NIDA and BSO 1993 for fibroids Colonoscopy: 11/14/2017 SHOWED Tubular Adenoma 5 yr f/u recommended. Had colonoscopy at [facility] 03/25/2024: It showed diverticulosis and internal [...] for a HDF Admitted to [facility] from 02/05-02/07/2024 where she presented [...] Echocardiogram on 04/18/2024 which showed EF 60-65%, [id number] tricuspid regurgitation, no pericardial effusion. Nuclear stress [...] She is being followed at [facility] Coumadin clinic Assessment & Plan [...] She is being followed at [facility] Coumadin clinic Cobalamin deficiency 06/07/2022 [...] reports wheezing intermittently. Seen by Dr. Aviles Direct Marketing Analyst 05/18/2024 he mentioned she did not tolerate Breo Elipta. Assessment & Plan (03/18/2024 2:55 PM EDT): Pt uses Pro-Air on a prn basis maybe once or twice a month, pt reports wheezing intermittently. Seen by Dr. Aviles Direct Marketing Analyst 03/14/2024 he added Nikolai mott recommended full [...] care of a psychotherapist Symone Arce at [facility] [phone] Javi Oshea On Duloxetine 20 mg capsule daily and temazepam 15 mg po qhs Rheumatoid arthritis 06/07/2022 Assessment & Plan (11/25/2024 9:18 AM EDT): Pt is here for a f/u She has RA diagnosed in 2000 She is followed at [facility] Rheumatology. Previously she was under the care of Raiza stauffer tel: [phone] In the past she was on Humira [...] 2000 She is followed at [facility] Rheumatology. Previously she was under the care of Raiza stauffer tel: [phone] In the past she was on Humira [...] 2000 She is followed at [facility] Rheumatology, last note 11/27/2022 Previously she was under the care of Raiza stauffer tel: [phone] In the past she was on Humira [...] 2000 She is followed at [facility] Rheumatology, last note 11/27/2022 Previously she was under the care of Raiza stauffer tel: [phone] In the past she was on Humira [...] 2000 She is followed at [facility] Rheumatology, last note 11/27/2022 Previously she was under the care of Raiza stauffer tel: [phone] In the past she was on Humira [...] a month once the ankle is resolved. Instrument And Control Technician to consider to try another medication for her RA if she has swelling and pain in her hands again. Follow-up with Rheumatology Assessment & Plan (01/16/2023 12:46 PM EDT): Pt is here for a f/u She has RA diagnosed in 2000 She is followed at [facility] Rheumatology, last note 11/27/2022 Previously she was under the care of Raiza stauffer tel: [phone] In the past she was on Humira [...] 2000 She is followed at [facility] Rheumatology, last note 03/14/2022 Previously she was under the care of Raiza stauffer tel: [phone] In the past she was on Humira and Prednisone with no good results. She was on Methotrexate, Kevsara nd Folic aci, but her Instrument And Control Technician recently held them due to a low WBC count of 3.2 she is getting weekly CBCs Assessment & Plan (06/08/2022 10:21 AM EST): Pt is here for a f/u She has RA diagnosed in 2000 She is followed at [facility] Rheumatology, last note 03/14/2022 Previously she was under the care of Raiza xiomy tel: [phone] In the past she was on Humira and Prednisone with no good results. She was on Methotrexate, Kevsara nd Folic aci, but her Instrument And Control Technician recently held them due to a low WBC count of 3.2 she is getting weekly CBCs Tubular adenoma of colon 06/07/2022 Assessment & Plan (11/25/2024 9:07 AM EDT): Colonoscopy: 11/14/2017 showed Tubular Adenoma 5 yr f/u recommended Pt referred to Dr. Baldwin, seen 03/12/2024 Had colonoscopy at [facility] 03/25/2024: It showed diverticulosis and internal hemorrhoids GI recommended NO further colonoscopies Assessment & Plan (03/18/2024 3:53 PM EDT): Colonoscopy: 11/14/2017 showed Tubular Adenoma 5 yr f/u recommended Pt referred to Dr. Baldwin, seen 03/12/2024 scheduled for colonoscopy at [facility] 03/25/2024 Assessment & Plan (06/08/2022 8:25 AM EST): Colonoscopy: 11/14/2017 showed Tubular Adenoma 5 yr f/u recommended Encounters Date Type Department Care Team Description 01/21/[address] [facility] [address] [place] [phone] Erik Gibbs MD Appointment; February11/27/2024 Orders Only GENERIC EXTERNAL DATA DEPARTMENT Provider, Generic External Data 11/25/2024 9:00 AM EDT Office Visit [facility] [address] [place] [address] Erik Gibbs MD Dermatitis (Primary Dx); Age-related osteoporosis without current pathological fracture; Stress incontinence of urine; Tubular adenoma of colon; Preventative health care; Mild intermittent asthma without complication; Palpitations; Rheumatoid arthritis involving multiple sites with positive rheumatoid factor ([facility]); Essential hypertension; Peripheral polyneuropathy 11/25/2024 Travel 11/24/[address] [facility] [address] [facility] [place] [address] Erik Gibbs MD chartprep from Last 3 Months Immunizations Immunization Administration [...] 11/25/2024 9:03 AM EDT Plan of Treatment Upcoming Encounters Date Type Department Care Team (Late st Contact Info) Description 04/14/2025 11:15 AM EST Office Visit [facility] [address] [place] [address] Erik Gibbs MD [address] [place], [place] [phone] Health Maintenance Due Date Last Done Comments SDOH Screening 09/26/2024 09/27/2023 COVID-19 Vaccine (6 - 2024-25 season) 2025 03/18/2024, 03/23/2022, 05/13/2021, Additional history exists Influenza Vaccine (#1) 2025 , 02/21/2022, 03/03/2021, Additional history exists Alcohol/Substance Use Screening 03/18/2025 03/18/2024 Depression Screening 11/25/2025 11/25/2024, 11/26/19 Tobacco Screening 11/25/2025 11/25/2024 DTaP/Tdap/Td Vaccines (3 - Td or Tdap) 03/26/2029 03/26/2019, 05/02/2016 Lipid Panel 11/27/2029 11/27/2024, 05/0 07/2023, 01/16/2023, Additional history exists Hepatitis B Vaccines Completed 07/17/2019, 03/07/2017, 02/07/2017 RSV Patients and Patients Aged 60 years or older Completed 06/28/2023 Pneumococcal Vaccine: 50+ Years Completed 09/14/2023, 05/26/2021 Zoster Vaccines Completed 09/14/2023, 020 05/2023, 05/02/2016 Colonoscopy Discontinued 03/25/2024 Colorectal Cancer Screening Discontinued [...] Routine 11/27/2024 10:38 AM EDT Essential hypertension HM COLONOSCOPY Routine 03/25/2024 from Last 3 Months or Most Recently Relevant to Health Maintenance Results * D Dimer High Sensitivity (11/27/2024 10:38 AM EDT) [facility] D Dimer High Sensitivity <150 NG/ML [facility] Comment:D-DIMER HS REFERENCE RANGENote: Our [...] Provider LAB BLOOD ORDERAB LES Final Result [facility] [address] [place] [phone] * TSH with Reflex to Free T4 (11/27/2024 10:38 AM EDT) Pathologist [facility] TSH reflex Free T4 1.25 0.32 - 4.0 uIU/mL [facility] Blood Venous blood specimen / Unknown 11/27/2024 10:38 AM EDT 11/27/2024 1:09 PM EDT us Erik Ortiz MD LAB BLOOD ORDERABLES Final Result [facility] [address] [place] [phone] [phone] * (ABNORMAL) CBC auto differential (11/27/2024 10:38 AM EDT) White Blood Count 3.8(L) 4.8 - 10.8 X10*3/uL [facility] Red Blood Count 4.62 4.20 - 5.50 X10*6/uL [facility] Hemoglobin 11.7(L) 12.0 - 16.0 g/dl [facility] Hematocrit 37.8 37.0 - 47.0 % [facility] Mean Corpuscular Volume 81.8 80.0 - 98.0 fL [facility] Mean Corpuscular Hemoglobin 25.3(L) 27.0 - 33.0 pg [facility] Mean Corpuscular HGB Conc 31.0 31.0 - 35.0 g/dl [facility] Red Cell Distribution Width 16.3(H) 11.0 - 16.0 % [facility] Platelet Count 304 160 - 400 X10*3/uL [facility] Mean Platelet Volume 11.4 9.4 - 12.3 fL [facility] Neutrophils Percent Auto 42.0(L) 45 - 73 % [facility] Imm Gran Pct Auto 0.3 0.0 - 0.4 % [facility] Lymphocytes Percent Auto 37.0 20 - 40 % [facility] Monocytes Percent Auto 12.1(H) 2 - 11 % [facility] Eosinophils Percent Auto 7.6(H) 0 - 4 % [facility] Basophils Percent Auto 1.0 0 - 2 % [facility] NRBC Pct Auto 0.0 0.0 - 0.2 /100WBC [facility] Neutrophils Absolute Auto 1.6(L) 2.0 - 8.3 x10*3/uL [facility] Imm Gran Abs Auto 0.01 0.00 - 0.03 X10*3/uL [facility] Lymphocytes Absolute Auto 1.4 1.2 - 4.9 X10*3/uL [facility] Monocytes Absolute Auto 0.5 0.1 - 1.2 X10*3/uL [facility] Eosinophils Absolute Auto 0.3 0.0 - 0.4 X10*3/uL [facility] Basophils Absolute Auto 0.0 0.0 - 0.2 X10*3/uL [facility] NRBC Abs Auto 0.000 0.0 - 0.012 X10*3/uL [facility] 11/27/2024 10:3 8 AM EDT 11/27/2024 1:09 PM EDT us Generic External Data Provider LAB BLOOD ORDERAB LES Final Result [facility] [address] [place] [phone] * (ABNORMAL) Lipid Panel, Standard (11/27/2024 10:38 AM EDT) Triglycerides 68 <150 mg/dL [facility] Comment:Desirable Triglyceri de: less than 150 mg/dLBorderline High Triglyceride 150-199 mg/dLHigh Triglyceride: 200-499 mg/dLVery High Triglyceride: greater than or equal to 5OO mg/dL Cholesterol 199 <200 mg/dL [facility] Comment:Desirable Cholestero l: less than 200 mg/dLBorderline High Cholesterol: 200-239 mg/dLHigh Cholesterol: greater than 239 mg/dL LDL Cholesterol Calculated 104(H) <100 mg/dL [facility] Comment:Desirable LDL: less than 100 mg/dLNear Optimal/Above Optimal LDL: 110- 129 mg/dLBorderline High LDL: 130-159 mg/dLHigh LDL: 160-189 mg/dLVery High LDL: greater than or equal to 190 mg/dL HDL Cholesterol 82 >40 mg/dL [facility] Comment:Desirable HDL: great er than 40 mg/dL Note: This HDL assay may give artificially low results in patients with liver disease. Blood Venous blood specimen / Unknown 11/27/2024 10:38 AM EDT 11/27/2024 1:09 PM EDT us Erik Ortiz MD LAB BLOOD ORDERABLES Final Result [facility] [address] [place] [phone] * (ABNORMAL) Comprehensive Metabolic Panel (11/27/2024 10:38 AM EDT) Sodium 141 135 - 145 mmol/L [facility] Potassium 3.7 3.3 - 5.1 mmol/L [facility] Chloride 105 96 - 108 mmol/L [facility] Carbon Dioxide 26 22 - 29 mmol/L [facility] Anion Gap 14 12 - 20 [facility] Urea Nitrogen (BUN) 13 9 - 16 mg/dL [facility] Creatinine, Serum 0.77 0.5 - 1.4 mg/dL [facility] Estimated Glomerular Filt Rate >60 [facility] Comment:Chronic Kidney Disea se: Estimated GFR < 60 mL/min/[id number] Kidney Disease: Estimated GFR < 15 mL/min/1.73m2 Glucose 73 60 - 115 mg/dL [facility] Calcium 9.5 8.4 - 10.2 mg/dL [facility] Bilirubin, Total 0.5 0.0 - 1.0 mg/dL [facility] Aspartate Amino Transferase 38(H) 5 - 31 U/L [facility] Alanine Aminotransferase 19 0 - 31 U/L [facility] Total Protein 7.7 6.5 - 8.0 g/dL [facility] Albumin Level 4.3 3.5 - 5.0 g/dL [facility] Alkaline Phosphatase 96 39 - 117 U/L [facility] Blood Venous blood specimen / Unknown 11/27/2024 10:38 AM EDT 11/27/2024 1:09 PM EDT Erik Ortiz MD LAB BLOOD ORDERABLES Final Result [facility] [address] [place] [phone] * (ABNORMAL) Colonoscopy (03/25/2024) Colonoscopy Abnormal(A ) Normal 03/25/2024 Erik Ortiz MD HEALTH MAINTENANCE Fi nal Result from Last 3 Months or Most Recently Relevant to Health Maintenance Insurance [facility] CARE HOME OPTIONS (O D-SNP) SHYANNE SÁNCHEZ [id number] Care Teams Medical Historian Relationship Specialty Start Date End Date Erik Gibbs MD [address] [place] [address] PCP - General Internal Medicine 02/18/19
--- OUTSIDE RECORDS SUMMARY | 2025-02-17 14:07 | XMS_ITS | Encounter Summary ---
Author Organization [facility] Address [address] [place] [address] Care Team Providers Care Chain Repairer Name Role Phone Jacob Manuel MD Primary Care Provider Pcp, No Primary Care Provider Erik Hamilton MD Primary Care Provider [phone] Encounter Details Date Type Department Care Team (Late st Contact Info) Description 12/13/2018 Scanned Document [facility] Rheumatology [address] [phone] Raiza Luis MD Social History Tobacco Use [...] filedocumented in this encounter Care Teams Chain Repairer Relationship Specialty Start Date End Date Jacob Manuel MD [address] [place] [phone] PCP - General Internal Medicine 11/08/18 04/29/19 Pcp, No PCP - General 05/19/19 07/17/19 Erik Motley MD [address] [place] [address] [place] [address] PCP - General 07/18/19 documented as of this encounter
--- OUTSIDE RECORDS SUMMARY | 2025-02-17 14:07 | XMS_ITS | Encounter Summary ---
Author Organization [facility] Address [address] [place] [address] Care Team Providers Care Embossing Press Operator Name Role Phone Erik Motley MD Primary Care Provider [phone] Encounter Details Date Type Department Care Team (Late st Contact Info) Description 07/18/2019 Scanned Document [facility] Rheumatology [address] [phone] Raiza Luis MD Social History Tobacco Use [...] on filedocumented in this encounter Care Teams Embossing Press Operator Relationship Specialty Start Date End Date Erik Motley MD [address] [place] [address] [place] [address] PCP - General 07/18/19 documented as of this encounter
--- OUTSIDE RECORDS SUMMARY | 2025-02-17 14:07 | XMS_ITS | Encounter Summary ---
Author Organization [facility] Address [address] [place] [address] Care Team Providers Care Telephone Lineworker Name Role Phone Erik Motley MD Primary Care Provider [phone] Encounter Details Date Type Department Care Team (Late st Contact Info) Description 10/31/2019 Scanned Document [facility] Rheumatology [address] [phone] Raiza Luis MD Social History Tobacco Use [...] on filedocumented in this encounter Care Teams Telephone Lineworker Relationship Specialty Start Date End Date Erik Motley MD [address] [place] [address] [place] [address] PCP - General 07/18/19 documented as of this encounter
--- OUTSIDE RECORDS SUMMARY | 2025-02-17 14:07 | XMS_ITS | Encounter Summary ---
Author Organization [facility] Address [address] [place] [address] Care Team Providers Care Rigger Helper Name Role Phone Erik Motley MD Primary Care Provider [phone] Encounter Details Date Type Department Care Team (Late st Contact Info) Description 07/18/2019 Scanned Document [facility] Rheumatology [address] [phone] Raiza Luis MD Social History Tobacco Use [...] on filedocumented in this encounter Care Teams Rigger Helper Relationship Specialty Start Date End Date Erik Motley MD [address] [place] [address] [place] [address] PCP - General 07/18/19 documented as of this encounter
--- OUTSIDE RECORDS SUMMARY | 2025-02-17 14:07 | XMS_ITS | Encounter Summary ---
Author Organization [employer] Address [address] [facility] [address]t [place] [address] Care Team Providers Care Nail Professional Name Role Phone Erik Gibbs MD Primary Care Provide r Reason for Visit * Reason Comments Med Refill Encounter Details Date Type Department Care Team ([facility] st Contact Info) Description 08/07/2023 Refill [facility] [address] [place], [place] [phone] Erik Gibbs MD [address] [place], [place] [phone] Social History Tobacco Use Types Packs/Day Years [...] Description 04/14/2025 11:15 AM EST Office Visit [facility] [address] [place], [place] [phone] Erik Gibbs MD [address] [place] [address] documented as of this encounter Goals Goal [...] documented as of this encounter Care Teams Nail Professional Relationship Specialty Start Date End Date Erik Gibbs MD [address] [place] [address] PCP - General Internal Medicine 02/18/19 documented as of this encounter
--- OUTSIDE RECORDS SUMMARY | 2025-02-17 14:07 | XMS_ITS | Clinical Summary ---
Author Organization [facility] Address [address] [place] [address] Care Team Providers Care Thermodynamicist Name Role Phone Erik Motley MD Primary [...] hours) as needed. Active nystatin (MYCOSTATIN, NYSTOP) 187942 UNIT/GM powderIndicatio ns:Intertrigino us dermatitis associated with [...] MG capsule 0 Active ergocalciferol (VITAMIN D2,DRISDOL) 83939 units CapIndications: Vitamin D deficiency TAKE 1 [...] 79 07/18/2019 10:06 AM EST Temperature 36.8 C (98.2 F) 07/18/2019 10:06 AM EST Respiratory Rate - - Oxygen Saturation 97% 07/18/2019 10:06 AM EST Inhaled Oxygen Concentration - - Weight 74.4 kg (164 lb) 07/18/2019 10:06 AM EST Height 160 cm (5' 3 ) 07/18/2019 10:06 AM EST Body Mass Index 29.05 07/18/2019 10:06 AM EST Plan of Treatment Health Maintenance Due Date Last Done Comments Advance Care Planning 1945 COVID-19 Vaccine (#1) 1950 DTaP/Tdap/Td Vaccines (1 - Tdap) 01/09/1964 Pneumococcal Vaccines 50+ (1 of 2 - PCV) 01/09/1964 Zoster (Shingles) Vaccine (1 of 2) 01/09/1964 DXA Bone Density (Females,Ag es 65 and older) 2010 RSV Vaccine 60 years and old er and Patients (1 - 1-dose 75+ series) 01/09/2020 Influenza Vaccine 12/26/2024 Hepatitis C Virus Screening Discontinued 12/11/2018 Hepatitis B Vaccines Aged Out No [...] a test for HCV RNA (test code 42657) is suggested. For additional information please refer to http://education.Why Not Give Back.[employer]/faq/QHF26i3 (This link is being provided for informational/ educational purposes only.) Blood specimen (specimen) 12/11/2018 10:46 AM EDT 12/11/2018 10:46 AM EDT Narrative [facility] - 12/17/2018 11:33 AM EDT FASTING:NO LTC ONLY: DIFFICULT DRAW. WILL RETRY ON NEXT SCHEDULED DAY. FASTING: NO Resulting Agency Comment Performing Organization Information: Site ID: [id number] Name: [facility] Address: [address] [place] [address], [place] [address] Director: Slava Hendricks MD us Raiza Luis MD LAB BLOOD ORDERABLES Final Resul t [facility] [employer] [facility] [address], [place] [address] from Last 3 Months or Most Recently Relevant to Health Maintenance Insurance MEDICARE PART A & B MEDICAID OUT OF STATE [facility] on file Care Teams Thermodynamicist Relationship Specialty Start Date End Date Erik Motley MD [address] [place] [address] PCP - General 07/18/19
--- OUTSIDE RECORDS SUMMARY | 2025-02-17 14:07 | XMS_ITS | Encounter Summary ---
Author Organization [employer] Address [address] [facility] 7t [place] [address] Care Team Providers Care Set Up Machinist Name Role Phone Erik Gibbs MD Primary Care Provide r Reason for Visit * Reason Onset Date Comments Medication Question 05/17/2023 Encounter Details Date Type Department Care Team ([facility] st Contact Info) Description 05/17/2023 Telephone [facility] [address] [place], [place] [phone] Erik Gibbs MD [address] [place] [phone] Medication Question Social History Tobacco Use Types [...] Description 04/14/2025 11:15 AM EST Office Visit [facility] [address] [place] [address] Erik Gibbs MD [address] [place] [address] documented as of this encounter Visit Diagnoses Not on filedocumented in this encounter Additional Health Concerns Assessment Noted Time PHQ-9 Depression Total Score: 0 07/04/19 23 10:11 AM EST documented as of this encounter Care Teams Set Up Machinist Relationship Specialty Start Date End Date Erik Gibbs MD [address] [place] [phone] PCP - General Internal Medicine 02/18/19 documented as of this encounter
== END 2025-02-17 11:16 | disposition home or self-care (01) ==
LOC: HO.10HDL 11:15
PROVIDERS: Visit Provider Student in an Organized Health Care Education/Training Program
DX: M05.9 Rheumatoid arthritis with rheumatoid factor, unspecified (principal); M80.00XS Age-related osteoporosis with current pathological fracture, unspecified site, sequela; Z79.60 Long term (current) use of unspecified immunomodulators and immunosuppressants
CPT/HCPCS: 36415; 80053; 82306; 85025; 85652; 86140

== ENCOUNTER 2025-02-19 14:03 | Outpatient (AMB) | payer OTHER, SELFPAY ==
--- NOTE | 2025-02-19 14:11 | A.OFFVIS_ITS ---
Vital Signs 02/19/25 14:17 Height 5 ft 3 in Weight 164 lb 14.492 oz BMI 29.2 BP 140/84 H Blood Pressure Location Lt brachial Position Sitting Pulse 79 Pulse Source Pulse Oximeter Pulse Oximetry (%) 99 Oxygen Delivery Method Room Air Intake Visit Reasons: f/u RA Intake Note: Patient presents for RA follow up. Allergies BERNADETTE Inhibitors Allergy (Severe, Verified 02/19/25 14:16) Angioedema Iodinated Contrast Media (CONTRAST, IV) Allergy (Intermediate, Verified 02/19/25 14:16) SWELLING, ITCHINESS, RASH Penicillins (PENICILLINS) Allergy (Intermediate, Verified 02/19/25 14:16) ITCHINESS, RASH, SWELLING latex Allergy (Verified 02/19/25 14:16) Hives Sulfa (Sulfonamide Antibiotics) Allergy (Verified 02/19/25 14:16) Unknown zoledronic acid (From Reclast) Adverse Reaction (Verified 02/19/25 14:16) Joint Pain Medication List - Last Reconciled 02/19/25 by Lisy Hooker MD acetaminophen (Mapap (acetaminophen)) 500 mg PO DAILY albuterol sulfate 90 mcg/actuation 2 puffs inhalation Q4H PRN apixaban (Eliquis) 5 mg PO BID atorvastatin 20 mg PO BEDTIME cholecalciferol (vitamin D3) 50 mcg PO DAILY cyanocobalamin (vitamin B-12) 1,000 mcg sublingual DAILY duloxetine 60 mg PO DAILY hydrochlorothiazide 12.5 mg PO DAILY leflunomide 20 mg PO DAILY lorazepam 0.5 mg PO DAILY PRN metoprolol succinate ER 50 mg PO DAILY mirabegron ER (Myrbetriq) 50 mg PO DAILY multivitamin 1 tab PO DAILY omeprazole 40 mg PO DAILY prednisone 5 mg PO DAILY PRN temazepam 30 mg PO BEDTIME PRN HPI Comments Details: Patient is a 80-year-old female with hypertension, hyperlipidemia, atrial fibrillation complicated by history of PE on anticoagulation, osteoporosis complicated by lumbar compression fracture and seropositive erosive rheumatoid arthritis here today for follow up Interval History: Patient last seen 10/16/2024 with me. - On leflunomide 20mg daily, prednisone 5mg prn, Prolia 60mg SC - Patient doing well but complaining of neck and back pain - Received shoulder injections 1 week ago from orthopedics - No change in medications - Received Prolia in 11/2024 Today - On leflunomide 20mg daily, prednisone 5mg prn, Prolia 60mg SC - Its raining today so she is complaining of pain in her entire body - Diagnosed with sensorimotor neuropathy by [facility] Rheumatologic History: +++RF+++CCP Humira October 2019- February 2020 - not effective Enbrel- February 2020 to April 2020- self stopped due to cholecystitis, then had cholecystectomy. 06/2020 Low dose methothrexate - partial effective so Himazara started July 2020- discontinued June 2022 due to neutropenia and leukopenia Methotrexate: January 2020 discontinued 06/2022 due to neutropenia. Out of touch in [place] 06/2022 to 11/2022. MTx restarted 02/2023 MTX DC 06/2023 due to GI upset Leflunomide 06/2023 effective Current Rheumatology Medication(s): Leflunomide 20 mg daily Prednisone 5 mg prn Prolia 60 mg sc every 6 months PFSH Medical History Encounter for monitoring denosumab therapy On jail leflunomide therapy Encounter for monitoring leflunomide therapy Right ankle swelling Long-term use of immunosuppressant medication Dry skin dermatitis Leg edema Surgical History History of cholecystectomy History of appendectomy History of total abdominal hysterectomy and bilateral salpingo-oophorectomy History of bariatric surgery History of colonoscopy Family History Father Asthma Mother Rheumatoid arthritis Cardiovascular disease Social History Household Members: Family Housing: House Are you a primary director of primary care to a significant other at home: No Do you presently have visiting nurse or other home services: Yes (PT 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 a BODY [employer]IE [employer]KER) Alcohol intake: never Patient Tobacco Use Status: Never used Tobacco Advance Directives Date on File: 02/06/24 service: No Current occupational status: disabled Review of Systems Const Details: Review of Systems Constitutional: Denies fever, chills, weight loss ENT: Denies vision changes, eye pain or eye redness, dental caries, dry mouth GI: Denies nausea, vomiting, diarrhea, abdominal pain, change in BM Pulm: Denies SOB, [place], hemoptysis, wheezing Cards: Denies chest pain, palpitations Skin: Denies Raynaud's, rash, nail changes, photosensitivity, ORNAMENTAL [employer]OR APPRENTICE: Denies headaches, weakness, paresthesias, recurrent falls MSK: as per HPI All other systems reviewed and are unremarkable except noted above Physical Exam Exam Exam: Vital signs reviewed Physical Examination CONSTITUITIONAL Patient alert and cooperative. Well appearing and in no apparent painful distress MSK Hands * Right Hand: Able to make a fist. But Mild swelling noted with TTP of the 2nd MCP and scattered PIPs. Herbedens nodes noted * Left Hand: Able to make a fist. Mild swelling noted with TTP of the 2nd MCP and scattered PIPs. Herbedens nodes noted Wrists * Right Wrist: Full ROM to flexion and extension. No swelling or TTP * Left Wrist: Full ROM to flexion and extension. No swelling or TTP Elbows * Right Elbow: Full ROM. No swelling or TTP. No TTP of the medial epicondyle. TTP of the lateral epicondyle * Left Elbow: Full ROM. No swelling or TTP. No TTP of the medial epicondyle. TTP of the lateral epicondyle Shoulders * Right shoulder: Decreased ROM. No swelling noted. No TTP of the AC joint. TTP of the subacromial bursa. No TTP of the posterior shoulder * Left shoulder: Decreased ROM. No swelling noted. No TTP of the AC joint. TTP of the subacromial bursa. No TTP of the posterior shoulder Knees * Right knee: Decreased ROM. No swelling noted. TTP of the knee joint line. No TTP of pes anserine bursa * Left knee: Decreased ROM. No swelling noted. TTP of the knee joint line. No TTP of pes anserine bursa. Ankles * Right ankle: Good ankle dorsiflexion and plantar flexion. No swelling. No TTP of the ankle joint * Left ankle: Good ankle dorsiflexion and plantar flexion. No swelling. No TTP of the ankle joint Feet * Right foot: Negative squeeze test * Left foot: Negative squeeze test Tender points? * No tenderness to palpation of the bilateral trapezius, supraspinatus, anterior costochondral junctions, bilateral suboccipital muscle insertions SKIN No rashes Vital Signs: Last Vital Signs Pulse 79 02/19/25 14:17 BP 140/84 H 02/19/25 14:17 Pulse Ox 99 02/19/25 14:17 Oxygen Delivery Method Room Air 02/19/25 14:17 BMI result Body Mass Index 29.2 Results Reviewed Results Reviewed: Laboratory Tests 02/17/25 11:20 WBC 3.5 L RBC 4.24 Hgb 10.9 L Hct 34.8 L Plt Count 300 ESR 29 H Sodium 143 Potassium 4.4 Chloride 108 Carbon Dioxide 29 BUN 16 Creatinine 0.80 AST 29 ALT 11 C-Reactive Protein 0.25 25-OH Vitamin D Total 39.6 DEXA 08/2024 FINDINGS: The bone mineral density of the lumbar spine is 0.892 with a T-score of -2.3, and a Z-score of -0.8. This is indicative of osteopenia. This represents a BMD change of 19.3% compared to the prior exam. This is statistically significant. The bone mineral density of the left total hip is 0.722 with a T-score of -2.3, and a Z-score of -0.5. This is indicative of osteopenia. This represents a BMD change of -2.4% compared to the prior exam. This is not statistically significant. The bone mineral density of the left femoral neck is 0.596 with a T-score of -3.2, and a Z-score of -1.2. This is indicative of osteoporosis. Assessment & Plan Assessment & Plan (1) Seropositive rheumatoid arthritis: Comment: +++RF+++CCP Humira October 2019- February 2020 - not effective Enbrel- February 2020 to April 2020- self stopped due to cholecystitis, then had cholecystectomy. 06/2020 Low dose methothrexate - partial effective so Ke vzara started July 2020- discontinued June 2022 due to neutropenia and leukopenia Methotrexate: January 2020 discontinued 06/2022 due to neutropenia. Out of touch in [place] 06/2022 to 11/2022. MTx restarted 02/2023 MTX DC 06/2023 due to GI upset Leflunomide 06/2023 effective Code(s): M05.9 - Rheumatoid arthritis with rheumatoid factor, unspecified Category: Medical Plan: #Seropositive RA Patient is a 80-year-old female with seropositive erosive rheumatoid arthritis. Today she is not in complete remission. She has tenderness to palpation of the ankle without swelling and TTP of several hand joints. Discussed escalating her therapy versus continuing the current therapy with intermittent Prednisone and patient as well as daughter thought that continuing the current therapy is the best option at this time. Plan - Leflunomide 20 mg daily - Prednisone 5 mg daily prn (disp 30 tabs) - Gabapentin 300mg bid - RTC 6 months - Labs prior to visit: CBC, CMP, ESR, CRP (2) Osteoporosis: Comment: MRI lumbar spine 06/2021: Moderate benign appearing compression fracture along superior endplate T11 and T12 DEXA 12/2021: AP Spine -3.5, Left femur neck -1.2, Left femur total -0.5 DEXA 08/2024: AP Spine -2.3, Left femur neck -3.2, Left femur total -2.3 Started on alendronate, patient did not receive medication. Prolia avoided due to latex allergy. Reclast denied by insurance company. Alendronate reordered May 2022 pharmacy did not fill due to listed allergy of bisphosphonates. Reviewed with patient, she remembered that she took Reclast in the past and had head to toe joint pain after infusion requiring hospitalization. Patient agrees to retry alendronate June 2022 - not tolerated. Prolia given 11/2022, 05/2024 Code(s): M81.0 - Age-related osteoporosis without current pathological fracture Category: Medical Qualifiers: Osteoporosis type: age-related Presence of current pathological fracture: with current pathological fracture Encounter type: sequela Qualified Code(s): M80.00XS - Age-related osteoporosis with current pathological fracture, unspecified site, sequela Plan: #Osteoporosis complicated by lumbar compression fractures Patient currently receiving Prolia. Second dose received today. No further fr actures or falls. Vitamin-D at goal DEXA improved Plan - Prolia in 6 months - Check CMP and Vitamin D prior administration - Keep vitamin-D at least 35 ng/mL (3) Encounter for monitoring leflunomide therapy: Code(s): Z51.81 - Encounter for therapeutic drug level monitoring; Z79.69 - assisted (current) use of other immunomodulators and immunosuppressants Category: Medical Plan: #Long-term leflunomide Discussed with patient the benefits and risks of leflunomide for managing the rheumatic condition Benefits include: - Reduced pain, maintenance of remission and reduction of flares Risks include: - GI upset especially diarrhea, skin rash, cytopenias, hepatotoxicity, weight loss, neuropathy Monitoring: ?CBC, BMP, LFTs, hepatitis B and C serologies (4) Encounter for monitoring denosumab therapy: Code(s): Z51.81 - Encounter for therapeutic drug level monitoring; Z79.620 - exterminator (current) use of immunosuppressive biologic Category: Medical Plan: #Long-term use of Denosumab Discussed with patient the risks and benefits of denosumab (Prolia) for the management of their osteoporosis Benefits include improved bone density, decreased fracture risk Risks include rapid bone loss if denosumab stopped, osteonecrosis of the jaw especially in patients with poor oral hygiene/diabetes/use of glucocorticoids/age greater than 65 years, atypical femoral fractures, injection site reactions. Mild increased risk of infections due to RANKL on T helper cells, increased risk of hypocalcemia especially in CKD patients Keep vitamin-D at least 35 ng/mL Advised to delay non emergent dental procedures to toward the end of the 6 month cycle and if they plan to stop denosumab would need to continue antiresorptive to maintain the effects of denosumabe Plan I spent 30 minutes reviewing the record and labs, taking a history, examining the patient, discussing the treatment plan and documenting in the medical record Medications: New gabapentin 300 mg PO BID 180 caps 1RF 90 days G62.9 - Polyneuropathy, unspecified Refilled leflunomide 20 mg PO DAILY 90 tabs 1RF M05.9 - Rheumatoid arthritis with rheumatoid factor, unspecified prednisone 5 mg PO DAILY PRN 30 tabs 2RF pain and swelling M05.9 - Rheumatoid arthritis with rheumatoid factor, unspecified Coding Level of Care Code Est Pt Level 4 (88057) Complex EM visit Add On G2211 Diagnoses Seropositive rheumatoid arthritis M05.9 Age-related osteoporosis with current pathological fracture, sequela M80.00XS Osteoporosis type: age-related Presence of current pathological fracture: with current pathological fracture Encounter type: sequela Encounter for monitoring leflunomide therapy Z51.81; Z79.69 Encounter for monitoring denosumab therapy Z51.81; Z79.864
[2025-02-19 14:17] VITALS: BP 140/84; PULSE 79; O2SAT 99; BMI 29.2
--- OUTSIDE RECORDS SUMMARY | 2025-02-19 18:32 | XMS_ITS | Encounter Summary ---
Author Organization [facility] Address [address] [place] [address] Care Team Providers Care Collection Administrator Name Role Phone Jacob Manuel MD Primary Care Provider Pcp, No Primary Care Provider Erik Hamilton MD Primary Care Provider [phone] Encounter Details Date Type Department Care Team (Late st Contact Info) Description 03/31/2019 Scanned Document [facility] Rheumatology [address] [phone] Raiza Luis MD Social History Tobacco Use [...] on filedocumented in this encounter Care Teams Collection Administrator Relationship Specialty Start Date End Date Jacob Manuel MD [address] [place] [id number] PCP - General Internal Medicine 11/08/18 04/29/19 Pcp, No PCP - General 05/19/19 07/17/19 Erik Motley MD [address] [place] [address] [place] [address] PCP - General 07/18/19 documented as of this encounter
--- OUTSIDE RECORDS SUMMARY | 2025-02-19 18:32 | XMS_ITS | Clinical Summary ---
Author Organization [employer] Address [address] [place] [address] 7t [place] [address] Care Team Providers Care Angle Roll Operator Name Role Phone Erik Gibbs MD [...] Pt had NCS 09/24/2024 ordered by her Beading Installer that showed sensorimotor bilateral peripheral neuropathy, axonal features. This could likely be a result of her RA Preventative health care 03/18/2024 Assessment & Plan (11/25/2024 9:08 AM EDT): Mammogram: 05/05/2024 Normal Pap Smear: s/p NIDA and BSO 1993 for fibroids Colonoscopy: 11/14/2017 SHOWED Tubular Adenoma 5 yr f/u recommended. Had colonoscopy at [facility] 03/25/2024: It showed diverticulosis and internal [...] here for a HDF Admitted to [facility] from 02/05-02/07/2024 where she presented for evaluation [...] Echocardiogram on 04/18/2024 which showed EF 60-65%, [id number] tricuspid regurgitation, no pericardial effusion. Nuclear stress [...] notes She is being followed at [facility] Coumadin clinic Assessment & Plan (06/08/2022 8:25 [...] 06/09/2021 She is being followed at [facility] Coumadin clinic Cobalamin deficiency 06/07/2022 Constipation 06/07/2022 [...] reports wheezing intermittently. Seen by Dr. Aviles Ob Gyn 05/18/2024 he mentioned she did not tolerate Breo Elipta. Assessment & Plan (03/18/2024 2:55 PM EDT): Pt uses Pro-Air on a prn basis maybe once or twice a month, pt reports wheezing intermittently. Seen by Dr. Aviles Ob Gyn 03/14/2024 he added Nikolai mott recommended full [...] care of a psychotherapist Symone Arce at [facility] [phone] Javi Oshea On Duloxetine 20 mg capsule daily and temazepam 15 mg po qhs Rheumatoid arthritis 06/07/2022 Assessment & Plan (11/25/2024 9:18 AM EDT): Pt is here for a f/u She has RA diagnosed in 2000 She is followed at [facility] Rheumatology. Previously she was under the care of Raiza stauffer tel: [phone] In the past she was on Humira [...] in 2000 She is followed at [facility] Rheumatology. Previously she was under the care of Raiza stauffer tel: [phone] In the past she was on Humira [...] in 2000 She is followed at [facility] Rheumatology, last note 11/27/2022 Previously she was under the care of Raiza stauffer tel: [phone] In the past she was on Humira [...] in 2000 She is followed at [facility] Rheumatology, last note 11/27/2022 Previously she was under the care of Raiza stauffer tel: [phone] In the past she was on Humira [...] in 2000 She is followed at [facility] Rheumatology, last note 11/27/2022 Previously she was under the care of Raiza stauffer tel: [phone] In the past she was on Humira [...] a month once the ankle is resolved. Beading Installer to consider to try another medication for her RA if she has swelling and pain in her hands again. Follow-up with Rheumatology Assessment & Plan (01/16/2023 12:46 PM EDT): Pt is here for a f/u She has RA diagnosed in 2000 She is followed at [facility] Rheumatology, last note 11/27/2022 Previously she was under the care of Raiza stauffer tel: [phone] In the past she was on Humira [...] in 2000 She is followed at [facility] Rheumatology, last note 03/14/2022 Previously she was under the care of Raiza stauffer tel: [phone] In the past she was on Humira and Prednisone with no good results. She was on Methotrexate, Kevsara nd Folic aci, but her Beading Installer recently held them due to a low WBC count of 3.2 she is getting weekly CBCs Assessment & Plan (06/08/2022 10:21 AM EST): Pt is here for a f/u She has RA diagnosed in 2000 She is followed at [facility] Rheumatology, last note 03/14/2022 Previously she was under the care of Raiza xiomy tel: [phone] In the past she was on Humira and Prednisone with no good results. She was on Methotrexate, Kevsara nd Folic aci, but her Beading Installer recently held them due to a low WBC count of 3.2 she is getting weekly CBCs Tubular adenoma of colon 06/07/2022 Assessment & Plan (11/25/2024 9:07 AM EDT): Colonoscopy: 11/14/2017 showed Tubular Adenoma 5 yr f/u recommended Pt referred to Dr. Baldwin, seen 03/12/2024 Had colonoscopy at [facility] 03/25/2024: It showed diverticulosis and internal hemorrhoids GI recommended NO further colonoscopies Assessment & Plan (03/18/2024 3:53 PM EDT): Colonoscopy: 11/14/2017 showed Tubular Adenoma 5 yr f/u recommended Pt referred to Dr. Baldwin, seen 03/12/2024 scheduled for colonoscopy at [facility] 03/25/2024 Assessment & Plan (06/08/2022 8:25 AM EST): Colonoscopy: 11/14/2017 showed Tubular Adenoma 5 yr f/u recommended Encounters Date Type Department Care Team Description 01/21/2025 Telephone [facility] [address] [place] [phone] Erik Gibbs MD Appointment; February11/27/2024 Orders Only GENERIC EXTERNAL DATA DEPARTMENT Provider, Generic External Data 11/25/2024 9:00 AM EDT Office Visit [facility] [address] [place] [address] Erik Gibbs MD Dermatitis (Primary Dx); Age-related osteoporosis without current pathological fracture; Stress incontinence of urine; Tubular adenoma of colon; Preventative health care; Mild intermittent asthma without complication; Palpitations; Rheumatoid arthritis involving multiple sites with positive rheumatoid factor ([facility]); Essential hypertension; Peripheral polyneuropathy 11/25/2024 Travel 11/24/2024 Telephone [facility] [address] [facility] [place] [address] Erik Gibbs MD chartprep from Last 3 [...] Description 04/14/2025 11:15 AM EST Office Visit [facility] [address] [place] [address] Erik Gibbs MD [address] [place], [place] [phone] Health Maintenance Due Date Last Done Comments [...] Dimer High Sensitivity (11/27/2024 10:38 AM EDT) [facility] D Dimer High Sensitivity <150 NG/ML [facility] Comment:D-DIMER HS REFERENCE RANGENote: Our [...] Provider LAB BLOOD ORDERAB LES Final Result [facility] [address] [place] [phone] * TSH with Reflex to Free T4 (11/27/2024 10:38 AM EDT) Pathologist [facility] TSH reflex Free T4 1.25 0.32 - 4.0 uIU/mL [facility] Blood Venous blood specimen / Unknown 11/27/2024 10:38 AM EDT 11/27/2024 1:09 PM EDT us Erik Ortiz MD LAB BLOOD ORDERABLES Final Result [facility] [address] [place] [address] [phone] * (ABNORMAL) CBC auto differential (11/27/2024 10:38 AM EDT) White Blood Count 3.8(L) 4.8 - 10.8 X10*3/uL [facility] Red Blood Count 4.62 4.20 - 5.50 X10*6/uL [facility] Hemoglobin 11.7(L) 12.0 - 16.0 g/dl [facility] Hematocrit 37.8 37.0 - 47.0 % [facility] Mean Corpuscular Volume 81.8 80.0 - 98.0 fL [facility] Mean Corpuscular Hemoglobin 25.3(L) 27.0 - 33.0 pg [facility] Mean Corpuscular HGB Conc 31.0 31.0 - 35.0 g/dl [facility] Red Cell Distribution Width 16.3(H) 11.0 - 16.0 % [facility] Platelet Count 304 160 - 400 X10*3/uL [facility] Mean Platelet Volume 11.4 9.4 - 12.3 fL [facility] Neutrophils Percent Auto 42.0(L) 45 - 73 % [facility] Imm Gran Pct Auto 0.3 0.0 - 0.4 % [facility] Lymphocytes Percent Auto 37.0 20 - 40 % [facility] Monocytes Percent Auto 12.1(H) 2 - 11 % [facility] Eosinophils Percent Auto 7.6(H) 0 - 4 % [facility] Basophils Percent Auto 1.0 0 - 2 % [facility] NRBC Pct Auto 0.0 0.0 - 0.2 /100WBC [facility] Neutrophils Absolute Auto 1.6(L) 2.0 - 8.3 x10*3/uL [facility] Imm Gran Abs Auto 0.01 0.00 - 0.03 X10*3/uL [facility] Lymphocytes Absolute Auto 1.4 1.2 - 4.9 X10*3/uL [facility] Monocytes Absolute Auto 0.5 0.1 - 1.2 X10*3/uL [facility] Eosinophils Absolute Auto 0.3 0.0 - 0.4 X10*3/uL [facility] Basophils Absolute Auto 0.0 0.0 - 0.2 X10*3/uL [facility] NRBC Abs Auto 0.000 0.0 - 0.012 X10*3/uL [facility] 11/27/2024 10:3 8 AM EDT 11/27/2024 1:09 PM EDT us Generic External Data Provider LAB BLOOD ORDERAB LES Final Result [facility] [address] [place] [phone] * (ABNORMAL) Lipid Panel, Standard (11/27/2024 10:38 AM EDT) Triglycerides 68 <150 mg/dL [facility] Comment:Desirable Triglyceri de: less than 150 mg/dLBorderline High Triglyceride 150-199 mg/dLHigh Triglyceride: 200-499 mg/dLVery High Triglyceride: greater than or equal to 5OO mg/dL Cholesterol 199 <200 mg/dL [facility] Comment:Desirable Cholestero l: less than 200 mg/dLBorderline High Cholesterol: 200-239 mg/dLHigh Cholesterol: greater than 239 mg/dL LDL Cholesterol Calculated 104(H) <100 mg/dL [facility] Comment:Desirable LDL: less than 100 mg/dLNear Optimal/Above Optimal LDL: 110- 129 mg/dLBorderline High LDL: 130-159 mg/dLHigh LDL: 160-189 mg/dLVery High LDL: greater than or equal to 190 mg/dL HDL Cholesterol 82 >40 mg/dL [facility] Comment:Desirable HDL: great er than 40 mg/dL Note: This HDL assay may give artificially low results in patients with liver disease. Blood Venous blood specimen / Unknown 11/27/2024 10:38 AM EDT 11/27/2024 1:09 PM EDT us Erik Ortiz MD LAB BLOOD ORDERABLES Final Result [facility] [address] [place] [address] [phone] * (ABNORMAL) Comprehensive Metabolic Panel (11/27/2024 10:38 AM EDT) Sodium 141 135 - 145 mmol/L [facility] Potassium 3.7 3.3 - 5.1 mmol/L [facility] Chloride 105 96 - 108 mmol/L [facility] Carbon Dioxide 26 22 - 29 mmol/L [facility] Anion Gap 14 12 - 20 [facility] Urea Nitrogen (BUN) 13 9 - 16 mg/dL [facility] Creatinine, Serum 0.77 0.5 - 1.4 mg/dL [facility] Estimated Glomerular Filt Rate >60 [facility] Comment:Chronic Kidney Disea se: Estimated GFR < 60 mL/min/[id number] Kidney Disease: Estimated GFR < 15 mL/min/1.73m2 Glucose 73 60 - 115 mg/dL [facility] Calcium 9.5 8.4 - 10.2 mg/dL [facility] Bilirubin, Total 0.5 0.0 - 1.0 mg/dL [facility] Aspartate Amino Transferase 38(H) 5 - 31 U/L [facility] Alanine Aminotransferase 19 0 - 31 U/L [facility] Total Protein 7.7 6.5 - 8.0 g/dL [facility] Albumin Level 4.3 3.5 - 5.0 g/dL [facility] Alkaline Phosphatase 96 39 - 117 U/L [facility] Blood Venous blood specimen / Unknown 11/27/2024 10:38 AM EDT 11/27/2024 1:09 PM EDT Erik Ortiz MD LAB BLOOD ORDERABLES Final Result [facility] [address] [place] [address] [phone] * (ABNORMAL) Colonoscopy (03/25/2024) Colonoscopy Abnormal(A ) Normal 03/25/2024 Erik Ortiz MD HEALTH MAINTENANCE Fi nal Result from Last 3 Months or Most Recently Relevant to Health Maintenance Insurance [facility] [employer]PC OPTIONS (O D-SNP) SHYANNE SÁNCHEZ [id number] Care Teams Angle Roll Operator Relationship Specialty Start Date End Date Erik Gibbs MD [address] [place] [address] PCP - General Internal Medicine 02/18/19
--- OUTSIDE RECORDS SUMMARY | 2025-02-19 18:32 | XMS_ITS | Encounter Summary ---
Author Organization [employer] Address [address] [facility] 7t [place] [address] Care Team Providers Care Learning And Development Specialist Name Role Phone Erik Gibbs MD Primary Care Provide r Reason for Visit * Reason Comments Med Refill Encounter Details Date Type Department Care Team ([facility] st Contact Info) Description 08/07/2023 Refill [facility] [address] [place], [place] [phone] Erik Gibbs MD [address] [place], [place] [phone] Social History Tobacco Use Types Packs/Day Years [...] Description 04/14/2025 11:15 AM EST Office Visit [facility] [address] [place], [place] [phone] Erik iGbbs MD [address] [place] [address] documented as of this encounter Goals Goal [...] documented as of this encounter Care Teams Learning And Development Specialist Relationship Specialty Start Date End Date Erik Gibbs MD [address] [place] [address] PCP - General Internal Medicine 02/18/19 documented as of this encounter
--- OUTSIDE RECORDS SUMMARY | 2025-02-19 18:32 | XMS_ITS | Encounter Summary ---
Author Organization [facility] Address [address] [place] [address] Care Team Providers Care Management Engineer Name Role Phone Erik Motley MD Primary Care Provider [phone] Encounter Details Date Type Department Care Team (Late st Contact Info) Description 07/18/2019 Scanned Document [facility] Rheumatology [address] [phone] Raiza Luis MD Social History Tobacco Use [...] on filedocumented in this encounter Care Teams Management Engineer Relationship Specialty Start Date End Date Erik Motley MD [address] [place] [address] [place] [address] PCP - General 07/18/19 documented as of this encounter
--- OUTSIDE RECORDS SUMMARY | 2025-02-19 18:32 | XMS_ITS | Encounter Summary ---
Author Organization [employer] Address [address] [facility] 7t [place] [address] Care Team Providers Care Channel Business Manager Name Role Phone Erik Gibbs MD Primary Care Provide r Reason for Visit * Reason Onset Date Comments Medication Question 05/17/2023 Encounter Details Date Type Department Care Team ([facility] st Contact Info) Description 05/17/2023 Telephone [facility]INE [address] [place], [place] [phone] Erik Gibbs MD [address] [place] [address] Medication Question Social History Tobacco Use Types [...] Description 04/14/2025 11:15 AM EST Office Visit [facility] [address] [place] [address] Erik Gibbs MD [address] [place] [address] documented as of this encounter Visit Diagnoses Not on filedocumented in this encounter Additional Health Concerns Assessment Noted Time PHQ-9 Depression Total Score: 0 07/04/19 23 10:11 AM EST documented as of this encounter Care Teams Channel Business Manager Relationship Specialty Start Date End Date Erik Gibbs MD [address] [place] [phone] PCP - General Internal Medicine 02/18/19 documented as of this encounter
--- OUTSIDE RECORDS SUMMARY | 2025-02-19 18:32 | XMS_ITS | Encounter Summary ---
Author Organization [facility] Address [address] [place] [address] Care Team Providers Care Log Pond Worker Name Role Phone Jacob Manuel MD Primary Care Provider Pcp, No Primary Care Provider Erik Hamilton MD Primary Care Provider [phone] Encounter Details Date Type Department Care Team (Late st Contact Info) Description 12/13/2018 Scanned Document [facility] Rheumatology [address] [phone] Raiza Luis MD Social History Tobacco Use [...] on filedocumented in this encounter Care Teams Log Pond Worker Relationship Specialty Start Date End Date Jacob Manuel MD [address] [place] [address] PCP - General Internal Medicine 11/08/18 04/29/19 Pcp, No PCP - General 05/19/19 07/17/19 Erik Motley MD [address] [place] [address] [place] [address] PCP - General 07/18/19 documented as of this encounter
--- OUTSIDE RECORDS SUMMARY | 2025-02-19 18:32 | XMS_ITS | Encounter Summary ---
Author Organization [employer] Address [address] [facility] 7t [place] [address] Care Team Providers Care Basket Machine Operator Name Role Phone Erik Gibbs MD Primary Care Provide r Reason for Visit * Reason Comments Med Refill Encounter Details Date Type Department Care Team ([facility] st Contact Info) Description 07/15/2023 Refill [facility] MED[facility]INE [address] [place], [place] [phone] Yovana Moore MD [address] [place] [address] Social History Tobacco Use Types Packs/Day Years [...] Description 04/14/2025 11:15 AM EST Office Visit [facility]INE [address] [place], [place] [phone] Erik Gibbs MD [address] [place] [address] documented as of this encounter Goals Goal [...] documented as of this encounter Care Teams Basket Machine Operator Relationship Specialty Start Date End Date Erik Gibbs MD [address] [place] [address] PCP - General Internal Medicine 02/18/19 documented as of this encounter
--- OUTSIDE RECORDS SUMMARY | 2025-02-19 18:32 | XMS_ITS | Clinical Summary ---
Author Organization [facility] Address [address] [place] [address] Care Team Providers Care Tooth Cutter Pinion Name Role Phone Erik Motley MD Primary [...] hours) as needed. Active nystatin (MYCOSTATIN, NYSTOP) 826187 UNIT/GM powderIndicatio ns:Intertrigino us dermatitis associated with [...] MG capsule 0 Active ergocalciferol (VITAMIN D2,DRISDOL) 85896 units CapIndications: Vitamin D deficiency TAKE 1 [...] a test for HCV RNA (test code 54968) is suggested. For additional information please refer to http://education.Tapatalk.Deezer/faq/JEG72h0 (This link is being provided for informational/ educational purposes only.) Blood specimen (specimen) 12/11/2018 10:46 AM EDT 12/11/2018 10:46 AM EDT Narrative [facility] - 12/17/2018 11:33 AM EDT FASTING:NO LTC ONLY: DIFFICULT DRAW. WILL RETRY ON NEXT SCHEDULED DAY. FASTING: NO Resulting Agency Comment Performing Organization Information: Site ID: [id number] Name: [employer] [employer] Address: [address] [place] [address], [place] [address] Director: Slava Hendricks MD us Raiza Luis MD LAB BLOOD ORDERABLES Final Resul t [facility] [employer] [id number], [place] [address] from Last 3 Months or Most Recently Relevant to Health Maintenance Insurance MEDICARE PART A & B MEDICAID OUT OF STATE [facility] on file Care Teams Tooth Cutter Pinion Relationship Specialty Start Date End Date Erik Motley MD [address] [place] [address] PCP - General 07/18/19
--- OUTSIDE RECORDS SUMMARY | 2025-02-19 18:32 | XMS_ITS | Encounter Summary ---
Author Organization [facility] Address [address] [place] [address] Care Team Providers Care Registered Medical Transcriptionist Name Role Phone Erik Motley MD Primary Care Provider [phone] Encounter Details Date Type Department Care Team (Late st Contact Info) Description 10/31/2019 Scanned Document [facility] Rheumatology [address] [phone] Raiza Luis MD Social History Tobacco Use [...] on filedocumented in this encounter Care Teams Registered Medical Transcriptionist Relationship Specialty Start Date End Date Erik Motley MD [address] [place] [address] [place] [address] PCP - General 07/18/19 documented as of this encounter
--- OUTSIDE RECORDS SUMMARY | 2025-02-19 18:32 | XMS_ITS | Encounter Summary ---
Author Organization [facility] Address [address] [place] [address] Care Team Providers Care Software Tools Build Engineer Name Role Phone Erik Motley MD Primary Care Provider [phone] Encounter Details Date Type Department Care Team (Late st Contact Info) Description 07/18/[address] [facility] Rheumatology [address] [phone] Raiza Luis MD Social History Tobacco Use [...] on filedocumented in this encounter Care Teams Software Tools Build Engineer Relationship Specialty Start Date End Date Erik Motley MD [address] [place] [address] [place] [address] PCP - General 07/18/19 documented as of this encounter
== END 2025-02-19 15:18 | disposition home or self-care (01) ==
LOC: HO.RHES 14:03
PROVIDERS: PCP Internal Medicine; Visit Provider Student in an Organized Health Care Education/Training Program
DX: M05.9 Rheumatoid arthritis with rheumatoid factor, unspecified (principal); M80.00XS Age-related osteoporosis with current pathological fracture, unspecified site, sequela; Z51.81 Encounter for therapeutic drug level monitoring; Z79.69 Long term (current) use of other immunomodulators and immunosuppressants; Z79.620 Long term (current) use of immunosuppressive biologic
CPT/HCPCS: 99214; G2211

== ENCOUNTER → 2025-02-19 14:03 | Outpatient (BNVA) | payer OTHER, SELFPAY | PROVIDERS: PCP Internal Medicine; Visit Provider Student in an Organized Health Care Education/Training Program | DX: M05.79 Rheumatoid arthritis with rheumatoid factor of multiple sites without organ or systems involvement (principal); Z51.81 Encounter for therapeutic drug level monitoring; Z79.69 Long term (current) use of other immunomodulators and immunosuppressants; M80.00XS Age-related osteoporosis with current pathological fracture, unspecified site, sequela; Z79.620 Long term (current) use of immunosuppressive biologic | CPT/HCPCS: 99212 ==